=== PATIENT | female | born 1970 | race Caucasian/White ===

== ENCOUNTER 2016-07-04 15:53 | Inpatient (IN) | payer BC, OTHER ==
[2016-07-04 16:13] VITALS: BMI 61.6
[2016-07-04] MEDS ORDERED: ALBUTEROL SO4 0.083% IH SOL 2.5 MG/3 ML VIAL.NEB. NEB ONE (16:21)
[2016-07-04] MEDS ORDERED: ALBUTEROL SO4 2.5/IPRATROPIUM 0.5 INH SOL 3 ML VIAL.NEB. NEB ONE ×4 (16:21→21:38)
[2016-07-04] MEDS ORDERED: methylPREDNISolone NA SUCC 125 MG/2 ML VIAL ONE (16:35)
[2016-07-04] MEDS ORDERED: methylPREDNISolone NA SUCC 125 MG/2 ML VIAL IVPB ONE (16:35)
[2016-07-04] MEDS: ALBUTEROL SO4 2.5/IPRATROPIUM 0.5 INH SOL 3 ML VIAL.NEB. NEB SCH ×3 (16:39→17:36)
[2016-07-04] MEDS ORDERED: IPRATROPIUM BR 0.02% 0.5 MG/2.5 ML VIAL.NEB. NEB ONE (16:46)
[2016-07-04 17:15] LABS: BASOPHIL 1.1 % (0-2.0); EOSINOPHIL 0.6 % (0-4.5); MCH 23.7 pg (25.7-33.7); MCHC 31.6 g/dl (32.0-36.0); MEAN CELL VOLUME 74.9 fl (80-96); NEUTROPHILS 64.6 % (42.8-82.8); PLATELET COUNT 334 K/MM3 (134-434); RDW 16.7 % (11.6-15.6)
[2016-07-04 17:34] LABS: ALBUMIN 3.3 g/dl (3.4-5.0); ANION GAP 9 (8-16); CALCIUM 9.3 mg/dL (8.5-10.1); CO2 26 mmol/L (21-32); GLUCOSE,RANDOM 90 mg/dL (74-106)
[2016-07-04 17:37] LABS: ALK PHOS 77 U/L (45-117); BILIRUBIN,TOTAL 0.2 mg/dL (0.2-1.0); CREATININE 0.7 mg/dL (0.55-1.02); SGPT/ALT 18 U/L (12-78); TOT PROT 6.8 g/dl (6.4-8.2)
--- NOTE | 2016-07-04 17:45 | PDOC ---
History of Present Illness - General Chief Complaint: Asthma Stated Complaint: Shortness of Breath Time Seen by Provider: 07/04/16 16:24 History Source: Patient Exam Limitations: No Limitations - History of Present Illness Initial Comments: 07/04/16 16:46 46-year-old female with history of HIV, asthma, anemia, and obesity presents with increasing wheezing and coughing for the past 2 days. Patient was seen by her elevator constructor hydraulic today for checkup for her anemia when she was found to be short of breath and wheezing. Patient arrives here with expiratory wheeze and complaining of an inability to catch her breath. Patient has been him in the past for the above but denies intubations Timing/Duration: reports: other (3 days) Severity: reports: moderate Possible Cause: Yes: frequent episodes Modifying Factors: improves with: activity, albuterol nebulizer, coughing, lying down Past History - Past Medical History Allergies/Adverse Reactions: Allergies Allergy/AdvReac Type Severity Reaction Status Date / Time omeprazole [From Prilosec] Allergy Mild Hives Verified 02/15/16 16:22 omeprazole magnesium Allergy Mild Hives Verified 02/15/16 16:22 [From Prilosec] Home Medications: Ambulatory Orders Elviteg/Crystal/Emtric/Tenofo Ala [Genvoya Tablet] 1 each PO DAILY 02/15/16 Azithromycin [Zithromax 250mg Tablets -] 250 mg PO UTDICT #6 tab 04/13/16 Levofloxacin [Levaquin] 750 mg PO DAILY #5 tab 04/13/16 Prednisone [Deltasone -] 40 mg PO DAILY #6 tablet 04/13/16 Anemia: Yes Asthma: Yes HIV: Yes (AIDS) - Surgical History Abdominal Surgery: Yes - Family Disease History Family Disease History: Diabetes: Father, Heart Disease: Father - Reproductive History (#): 6 Para: 5 Cervical CA: No Dysfunctional Uterine Bleeding: Yes Ectopic : No Endometrial CA: No Polycystic Ovaries: No Therapeutic (s) & number: No Tubal Ligation: No Spontaneous : 1 - Immunization History Immunization Up to Date: Yes - Psycho/Social/Smoking Cessation Hx Anxiety: No Suicidal Ideation: No Smoking History: Never smoked Have you smoked in the past 12 months: No Hx Alcohol Use: No Drug/Substance Use Hx: No Substance Use Type: None Hx Substance Use Treatment: No Patient Lives Alone: No Lives with/in: spouse/SO Respiratory Specific PMHX - Complaint Specific PMHX Bronchitis: Yes Review of Systems - Review of Systems Able to Perform ROS?: Yes Constitutional: No: Symptoms Reported HEENTM: No: Symptoms Reported Respiratory: Yes: Cough, Shortness of Breath, Wheezing Cardiac (ROS): No: Symptoms Reported ABD/GI: No: Symptoms Reported : No: Symptoms Reported Musculoskeletal: No: Symptoms Reported Integumentary: No: Symptoms Reported Neurological: No: Symptoms reported Endocrine: No: Symptoms Reported Hematologic/Lymphatic: Yes: Anemia *Physical Exam - Vital Signs Last Vital Signs Temp Pulse Resp BP Pulse Ox 98.2 F 82 28 H 134/84 98 07/04/16 16:05 07/04/16 16:05 07/04/16 16:05 07/04/16 16:05 07/04/16 16:05 - Physical Exam General Appearance: Yes: Nourished, Appropriately Dressed, Mild Distress HEENT: positive: EOMI, NICOLE, TMs Normal, Pharynx Normal. negative: Pale Conjunctivae Respiratory/Chest: positive: Respiratory Distress (mild), Accessory Muscle Use ( intercostal), Rapid RR, Decreased Breath Sounds ( bases bilateral), Wheezing ( expiratory bilateral) Cardiovascular: positive: Regular Rhythm, Regular Rate. negative: Murmur Extremity: positive: Normal Capillary Refill Integumentary: positive: Normal Color, Warm, Moist Neurologic: positive: Motor Strength 5/5 (ambulatory) ED Treatment Course - LABORATORY CBC & Chemistry Diagram: 07/04/16 16:15 07/04/16 16:15 - RADIOLOGY Radiology Studies Ordered: Category Date Time Status CHEST X-RAY PORTABLE* [RAD] Stat Radiology 07/04/16 17:31 Ordered - Medications Given in the ED: ED Medications Discontinued Medications Generic Name Dose Route Start Last Admin Trade Name Freq PRN Reason Stop Dose Admin Albuterol/Ipratropium 1 amp 07/04/16 16:45 07/04/16 16:40 Duoneb - NEB 07/04/16 17:16 1 amp Q15M KAREN Administration Methylprednisolone Sodium Succinate 125 mg 07/04/16 16:35 07/04/16 16:39 Solu-Medrol - IVPB 07/04/16 16:36 125 mg ONCE ONE Administration Medical Decision Making - Critical Care Time Total Critical Care Time (minutes): 45 Critical Care Statement: The care of this patient involved high complexity decision making to prevent further life threatening deterioration of the patient 's condition and/or to evalute & treat vital organ system(s) failure or risk of failure. - Medical Decision Making 07/04/16 17:48 Patient here for complaints of wheezing and coughing despite using her home nebulizer. Patient denies fever, chills chest pain, or nausea. Patient with history of asthma anemia and HIV patient has been seen in the past for similar complaints. Patient was found to be tachypneic, with decreased breath sounds, and with intercostal muscle usage. Patient had noticed 100% while receiving a nebulizer treatment. Patient ordered for [id number] nebulizer treatments 4, Solu-Medrol, IV access, pulse oximetry, chest x-ray, type and screen, and labs. 07/04/16 18:30 Laboratory Tests 07/04/16 07/04/16 07/04/16 16:15 16:15 16:15 WBC 10.0 Hgb 11.9 Hct 37.7 RDW 16.7 H D Plt Count 334 Sodium 140 Potassium 4.6 Chloride 105 Carbon Dioxide 26 Anion Gap 9 Random Glucose 90 Calcium 9.3 AST 17 D ALT 18 Albumin 3.3 L Serum , Qual Blood Type A POSITIVE 07/04/16 16:26 WBC Hgb Hct RDW Plt Count Sodium Potassium Chloride Carbon Dioxide Anion Gap Random Glucose Calcium AST ALT Albumin Serum , Qual Negative Blood Type Chest x-ray shows no acute lung disease. Awaiting callback from Dr. Jiménez for admission since patient is still wheezing with decreased breath sounds at the bases and concerning for respiratory distress. 07/04/16 19:53 Pt will receive an addit duoneb and magnesium. I spoke to dr jiménez who asked if hospitalist can admit pt. Case discussed with Dr. Godfrey who accepted pt to med surg in pt *DC/Admit/Observation/Transfer Diagnosis at time of Disposition: Asthma exacerbation Qualifiers: Asthma severity: moderate persistent Qualified Code(s): J45.41 - Moderate persistent asthma with (acute) exacerbation - Discharge Dispostion Admit: Yes
[2016-07-04 17:56] LABS: SGOT/AST 17 U/L (15-37)
--- NOTE | 2016-07-04 18:52 | PDOC ---
*Physical Exam - Vital Signs Last Vital Signs Temp Pulse Resp BP Pulse Ox 98.2 F 82 28 H 134/84 98 07/04/16 16:05 07/04/16 16:05 07/04/16 16:05 07/04/16 16:05 07/04/16 16:05 ED Treatment Course - LABORATORY CBC & Chemistry Diagram: 07/05/16 06:00 07/05/16 06:00 - ADDITIONAL ORDERS Additional order review: Laboratory Results 07/04/16 07/04/16 07/04/16 16:26 16:15 16:15 Sodium 140 Potassium 4.6 Chloride 105 Carbon Dioxide 26 Anion Gap 9 BUN 10 Creatinine 0.7 Creat Clearance w eGFR > 60 Random Glucose 90 Calcium 9.3 Total Bilirubin 0.2 D AST 17 D ALT 18 Alkaline Phosphatase 77 Total Protein 6.8 Albumin 3.3 L Serum , Qual Negative Blood Type A POSITIVE Antibody Screen Negative 07/04/16 16:15 RBC 5.03 MCV 74.9 L MCHC 31.6 L RDW 16.7 H D MPV 8.0 Neutrophils % 64.6 Lymphocytes % 27.6 Monocytes % 6.1 Eosinophils % 0.6 Basophils % 1.1 D - Medications Given in the ED: ED Medications Discontinued Medications Generic Name Dose Route Start Last Admin Trade Name Freq PRN Reason Stop Dose Admin Albuterol/Ipratropium 1 amp 07/04/16 16:45 07/04/16 17:36 Duoneb - NEB 07/04/16 17:16 1 amp Q15M KAREN Administration Methylprednisolone Sodium Succinate 125 mg 07/04/16 16:35 07/04/16 16:39 Solu-Medrol - IVPB 07/04/16 16:36 125 mg ONCE ONE Administration Medical Decision Making - Medical Decision Making 07/04/16 18:51 Pt seen by Midlevel Provider under my direct supervision Ancillary studies reviewed I agree with plan as outlined by Midlevel Provider *DC/Admit/Observation/Transfer Diagnosis at time of Disposition: Asthma exacerbation
[2016-07-04] MEDS ORDERED: MAGNESIUM SULF 50% (8.12 MEQ/2 ML-1 GM VIAL) IVPB ONE (19:52)
--- NOTE | 2016-07-04 20:01 | HP ---
CHIEF COMPLAINT: SOB, Wheezing PCP: Dr. Jiménez HISTORY OF PRESENT ILLNESS: This is a 46 y/o female with a past medical history of HIV (HAART compliant), Anemia, Asthma, Severe Morbid Obesity. Who presents to the ED with SOB and wheezing x 2 days. 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 Patient reports CARREON. She reports not being able to walk a block without being SOB. Patient reports taking her meds and using her nebulizer without relief. Patient denies recent travel or sick contacts. Patient denies fever, CP, AP, N/V/D, constipation. ER course was notable for: (1) Solumederol, Duonebs given in ED (2) Chest Xray- no active lung disease (3) Recent Travel: None PAST MEDICAL HISTORY: See HPI PAST SURGICAL HISTORY: Social History: Smoking: Never Alcohol: Occasional Wine Drugs: Denies Lives with S.O. Family History: Father: Cancer, unknown, Mother: DM, COPD, Asthma, FM, Diverticulitis Allergies omeprazole [From Prilosec] Allergy (Mild, Verified 02/15/16 16:22) Hives omeprazole magnesium [From Prilosec] Allergy (Mild, Verified 02/15/16 16:22) Hives HOME MEDICATIONS: Home Medications Medication Instructions Recorded Elviteg/Crystal/Emtric/Tenofo Ala 1 each PO DAILY 02/15/16 [Genvoya Tablet] Azithromycin [Zithromax 250mg 250 mg PO UTDICT #6 tab 04/13/16 Tablets -] Levofloxacin [Levaquin] 750 mg PO DAILY #5 tab 04/13/16 Prednisone [Deltasone -] 40 mg PO DAILY #6 tablet 04/13/16 REVIEW OF SYSTEMS CONSTITUTIONAL: chills Absent: fever, diaphoresis, generalized weakness, malaise, loss of appetite, weight change HEENT: Absent: rhinorrhea, nasal congestion, throat pain, throat swelling, difficulty swallowing, mouth swelling, ear pain, eye pain, visual changes CARDIOVASCULAR: Absent: chest pain, syncope, palpitations, irregular heart rate, lightheadedness , peripheral edema RESPIRATORY: cough, shortness of breath, dyspnea with exertion, wheezing Absent: cough, shortness of breath, dyspnea with exertion, orthopnea, stridor, hemoptysis GASTROINTESTINAL: Absent: abdominal pain, abdominal distension, nausea, vomiting, diarrhea, constipation, melena, hematochezia GENITOURINARY: Absent: dysuria, frequency, urgency, hesitancy, hematuria, flank pain, genital pain MUSCULOSKELETAL: Absent: myalgia, arthralgia, joint swelling, back pain, neck pain SKIN: Absent: rash, itching, pallor HEMATOLOGIC/IMMUNOLOGIC: Absent: easy bleeding, easy bruising, lymphadenopathy, frequent infections ENDOCRINE: Absent: unexplained weight gain, unexplained weight loss, heat intolerance, cold intolerance NEUROLOGIC: headache Absent: focal weakness or paresthesias, dizziness, unsteady gait, seizure, mental status changes, bladder or bowel incontinence PSYCHIATRIC: Absent: anxiety, depression, suicidal or homicidal ideation, hallucinations. PHYSICAL EXAMINATION Vital Signs - 24 hr 07/04/16 07/04/16 16:05 19:30 Temperature 98.2 F Pulse Rate 82 Pulse Rate [ 94 H Apical] Respiratory 28 H 28 H Rate Blood Pressure 134/84 Blood Pressure 137/91 [Left Arm] O2 Sat by Pulse 98 97 Oximetry (%) GENERAL: Morbidly Obese, Awake, alert, and fully oriented, in mild resp distress. HEAD: Normal with no signs of trauma. EYES: Pupils equal, round and reactive to light, extraocular movements intact, sclera anicteric, conjunctiva clear. No lid lag. EARS, NOSE, THROAT: Ears normal, nares patent, oropharynx clear without exudates. Moist mucous membranes. NECK: Normal range of motion, supple without lymphadenopathy, JVD, or masses. LUNGS: Some air movement across upper lobes, diminished to bases, Scattered rhonchi, with expiratory wheeze noted. No accessory muscle use. HEART: Regular rate and rhythm, normal S1 and S2 without murmur, rub or gallop. ABDOMEN: Soft, obese, nontender, not distended, normoactive bowel sounds, no guarding, no rebound, no masses. No hepatomegaly or splenomegaly. MUSCULOSKELETAL: Normal range of motion at all joints. No bony deformities or tenderness. No CVA tenderness. UPPER EXTREMITIES: 2+ pulses, warm, well-perfused. No cyanosis. No clubbing. Cap refill <2 seconds. No peripheral edema. LOWER EXTREMITIES: 2+ pulses, warm, well-perfused. No calf tenderness. trace peripheral edema bilaterally. NEUROLOGICAL: Cranial nerves II-XII intact. Normal speech. Gait not observed. PSYCHIATRIC: Cooperative. Good eye contact. Appropriate mood and affect. SKIN: Warm, dry, normal turgor, no rashes or lesions noted. Laboratory Results - last 24 hr 07/04/16 07/04/16 07/04/16 16:15 16:15 16:15 WBC 10.0 RBC 5.03 Hgb 11.9 Hct 37.7 MCV 74.9 L MCHC 31.6 L RDW 16.7 H D Plt Count 334 MPV 8.0 Neutrophils % 64.6 Lymphocytes % 27.6 Monocytes % 6.1 Eosinophils % 0.6 Basophils % 1.1 D Sodium 140 Potassium 4.6 Chloride 105 Carbon Dioxide 26 Anion Gap 9 BUN 10 Creatinine 0.7 Creat Clearance w eGFR > 60 Random Glucose 90 Calcium 9.3 Total Bilirubin 0.2 D AST 17 D ALT 18 Alkaline Phosphatase 77 Total Protein 6.8 Albumin 3.3 L Serum , Qual Blood Type A POSITIVE Antibody Screen Negative 07/04/16 16:26 WBC RBC Hgb Hct MCV MCHC RDW Plt Count MPV Neutrophils % Lymphocytes % Monocytes % Eosinophils % Basophils % Sodium Potassium Chloride Carbon Dioxide Anion Gap BUN Creatinine Creat Clearance w eGFR Random Glucose Calcium Total Bilirubin AST ALT Alkaline Phosphatase Total Protein Albumin Serum , Qual Negative Blood Type Antibody Screen ASSESSMENT/PLAN: This is a 46 y/o female with a PMHx of HIV (HAART compliant), Asthma, Anemia. Present to the ED with SOB, wheezing. Placed on Observation for Acute Asthma Exacerbation for further evaluation of their emergent condition. Problem List - Problem (1) Asthma exacerbation Assessment/Plan: - Acute - No leukocytosis, afebrile, likely due to environmental allergens vs viral - Solumederol, Magnesium Sulfate, Duonebs given in ED - Continue DuoNebs - Solumederol - O2 - Peak Flow BID - Monitor vitals, CBC - Consider LABA, if no improvement - f/u with Pulm outpatient as needed Code(s): J45.901 - UNSPECIFIED ASTHMA WITH (ACUTE) EXACERBATION Qualifiers: Asthma severity: moderate persistent Qualified Code(s): J45.41 - Moderate persistent asthma with (acute) exacerbation (2) Anemia Assessment/Plan: - Controlled - At baseline - Will transfuse if Hgb < 7.0 - Monitor CBC Code(s): D64.9 - ANEMIA, UNSPECIFIED (3) Chiari I malformation Assessment/Plan: - Continue to monitor and treat with interventions accordingly - Tylenol, Motrin prn (4) HIV (human immunodeficiency virus infection) Assessment/Plan: - Patient may take home med it is not in formulary Code(s): Z21 - ASYMPTOMATIC HUMAN IMMUNODEFICIENCY VIRUS INFECTION STATUS (5) Neuropathy Assessment/Plan: - Elevate extremities prn - B6 or anticonvulsant prn Code(s): G62.9 - POLYNEUROPATHY, UNSPECIFIED (6) Obesity Assessment/Plan: - Calorie Controlled Diet - f/u with RD in outpatient Code(s): E66.9 - OBESITY, UNSPECIFIED (7) DVT prophylaxis Assessment/Plan: - OOB - SCDs - Heparin SQ Code(s): [id number] - Visit type - Emergency Visit Emergency Visit: Yes ED Registration Date: 07/04/16 Care time: The patient presented to the Emergency Department on the above date and was hospitalized for further evaluation of their emergent condition. - New Patient This patient is new to me today: Yes Date on this admission: 07/04/16 - Critical Care Critical Care patient: No
[2016-07-04] MEDS ORDERED: MAGNESIUM SULF 50% (8.12 MEQ/2 ML-1 GM VIAL) ONE (21:38)
[2016-07-05] MEDS ORDERED: ACETAMINOPHEN 325 MG TABLET (FP) PO ONE (02:02)
[2016-07-05] MEDS: IPRATROPIUM BR 0.02% 0.5 MG/2.5 ML VIAL.NEB. NEB SCH ×4 (02:30→18:41)
[2016-07-05] MEDS: methylPREDNISolone NA SUCC 40 MG/1 ML VIAL IVPB SCH ×4 (02:30→22:36)
[2016-07-05 07:49] LABS: BASOPHIL 0.7 % (0-2.0); MCH 23.2 pg (25.7-33.7); MCHC 30.9 g/dl (32.0-36.0); MEAN PLT VOLUME 7.6 fl (7.5-11.1); NEUTROPHILS 85.8 % (42.8-82.8); PLATELET COUNT 356 K/MM3 (134-434); RDW 16.9 % (11.6-15.6)
[2016-07-05] MEDS ORDERED: ACETAMINOPHEN/CAFFEINE/BUTALBITAL 1 TAB PO ONE (08:30)
[2016-07-05 08:55] LABS: CREATININE 0.8 mg/dL (0.55-1.02)
[2016-07-05] MEDS ORDERED: ALBUTEROL SO4 0.083% IH SOL 2.5 MG/3 ML VIAL.NEB. NEB PRN (15:21)
--- NOTE | 2016-07-05 15:22 | PN ---
Progress Note (short form) - Note Progress Note: PULMONARY CONSULTATION DICTATED 07/05/16 IMP MODERATE PERSISTENT ASTHMA WITH ACUTE EXACERBATION OSAS MORBID OBESITY ANEMIA PLAN IV STEROIDS INHALED BRONCHODILATORS SUPPLEMENTAL O2 MONITOR PEAK FLOW BIPAP AT NIGHT DVT PROPHYLAXIS DR GREENWOOD Problem List - Problems (1) Asthma exacerbation Code(s): J45.901 - UNSPECIFIED ASTHMA WITH (ACUTE) EXACERBATION Qualifiers: Asthma severity: moderate persistent Qualified Code(s): J45.41 - Moderate persistent asthma with (acute) exacerbation (2) Anemia Code(s): D64.9 - ANEMIA, UNSPECIFIED (3) HIV (human immunodeficiency virus infection) Code(s): Z21 - ASYMPTOMATIC HUMAN IMMUNODEFICIENCY VIRUS INFECTION STATUS (4) Obesity Code(s): E66.9 - OBESITY, UNSPECIFIED (5) Sleep apnea, obstructive Code(s): G47.33 - OBSTRUCTIVE SLEEP APNEA (ADULT) (PEDIATRIC)
--- NOTE | 2016-07-05 15:54 | PN ---
Physical Exam: SUBJECTIVE: Patient seen and examined, she is oob to chair. She gets out of breath while answering questions, she denies CP and says the oxygen helps. She reports being admitted before for 3 weeks, never intubated Events: Migraine this AM, pain referred to occipital region down behind ear- > improved with fiorcet OBJECTIVE: Vital Signs Period Temp Pulse Resp BP Sys/So Pulse Ox Last 24 Hr 97.5 F-97.8 F 90-111 18-22 143-150/71-85 96-98 PE Neuro: alert, awake, cn 2-12intact Pulm: expiratory wheezing, dyspnea, + NC, lungs diminished CV: s1 s2 rrr no mrg Abd: obese, s nt nd + bs Ext: lower ext tenderness to palpation, no le edema Laboratory Results - last 24 hr 07/05/16 07/05/16 06:00 06:00 WBC 14.0 H D RBC 5.28 H Hgb 12.3 Hct 39.6 MCV 75.0 L MCHC 30.9 L RDW 16.9 H Plt Count 356 MPV 7.6 Neutrophils % 85.8 H D Lymphocytes % 12.8 D Monocytes % 0.7 L D Eosinophils % 0.0 D Basophils % 0.7 Sodium 135 L Potassium 4.9 Chloride 101 Carbon Dioxide 23 Anion Gap 11 BUN 11 Creatinine 0.8 Random Glucose 191 H D Calcium 10.0 Active Medications Generic Name Dose Route Start Last Admin Trade Name Freq PRN Reason Stop Dose Admin Acetaminophen/Butalbital/Caffeine 1 tablet 07/05/16 15:21 Fioricet - PO Q6H PRN FEVER OR PAIN Albuterol Sulfate 1 amp 07/05/16 15:24 Ventolin 0.5% - NEB Q4H PRN SHORT OF BREATH/WHEEZING Azithromycin 500 mg 07/05/16 16:00 Zithromax - PO 07/08/16 15:59 DAILY KAREN Budesonide/Formoterol Fumarate 2 puff 07/05/16 22:00 Symbicort 160/4.5mcg - IH BID KAREN Insulin Aspart 1 vial 07/05/16 16:30 Novolog Vial Sliding Scale - SQ ACHS KAREN Protocol Ipratropium [place] 1 amp 07/05/16 00:00 07/05/16 11:25 Atrovent 0.02% Nebulizer - NEB 1 amp Q6HPO KAREN Administration Methylprednisolone Sodium Succinate 60 mg 07/05/16 21:00 Solu-Medrol - IVPB Q6H-IV KAREN Non-Formulary Medication 1 each 07/05/16 10:00 Elviteg/Crystal/Emtric/Tenofo Ala [Genvoya Tablet] PO DAILY KAREN Tiotropium [place] 1 puff 07/05/16 16:30 Spiriva - IH DAILY KAREN Assessment: 46 year female HIV (HAART compliant), Anemia, Asthma, Severe Morbid Obesity admitted acute asthma exacerbation Plan: 1. Acute asthma exacerbation - Continue solumedrol 60mg q6 - Start Symbicort BID - Start Spirivia daily - Albuterol nebs prn - ISS, BGM ACHS w/ medrol - Continuos supplemental o2 - Bedside peak flows - Bipap at night - Pulm seeing 2. HIV - Cont HAART meds Visit type - Emergency Visit Emergency Visit: Yes ED Registration Date: 07/04/16 Care time: The patient presented to the Emergency Department on the above date and was hospitalized for further evaluation of their emergent condition. - New Patient This patient is new to me today: Yes Date on this admission: 07/05/16 - Critical Care Critical Care patient: No
[2016-07-05] MEDS ORDERED: AZITHROMYCIN 250 MG TABLET (FP) PO SCH (16:00)
[2016-07-05] MEDS: TIOTROPIUM BROMIDE 18 MCG/INH (DEVICE W/ 30 CAPSULES) IH SCH (16:30)
[2016-07-05] MEDS: INSULIN SLIDING SCALE (NOVOLOG) 1 VIAL SQ SCH ×2 (17:06→22:36)
[2016-07-05] MEDS: ACETAMINOPHEN/CAFFEINE/BUTALBITAL 1 TAB PO PRN ×2 (17:13→23:35)
[2016-07-05] MEDS ORDERED: methylPREDNISolone NA SUCC 40 MG/1 ML VIAL IVPB SCH (18:00)
[2016-07-05] MEDS ORDERED: PT OWN MED DRAWER 7, Y5N ONE (22:09)
[2016-07-05] MEDS: BUDESONIDE/FORMETEROL FUMARATE 160/4.5 mcg INHALER IH SCH (22:51)
[2016-07-06] MEDS: IPRATROPIUM BR 0.02% 0.5 MG/2.5 ML VIAL.NEB. NEB SCH ×2 (00:05→06:27)
[2016-07-06] MEDS: methylPREDNISolone NA SUCC 40 MG/1 ML VIAL IVPB SCH ×4 (02:44→21:45)
[2016-07-06] MEDS: INSULIN SLIDING SCALE (NOVOLOG) 1 VIAL SQ SCH ×4 (06:51→21:44)
[2016-07-06] MEDS: ACETAMINOPHEN/CAFFEINE/BUTALBITAL 1 TAB PO PRN ×2 (06:57→20:06)
[2016-07-06 07:30] LABS: BASOPHIL 0.2 % (0-2.0); MCHC 30.8 g/dl (32.0-36.0); MEAN CELL VOLUME 74.6 fl (80-96); MEAN PLT VOLUME 7.7 fl (7.5-11.1); PLATELET COUNT 358 K/MM3 (134-434); RDW 16.7 % (11.6-15.6); WHITE BLOOD COUNT 17.3 K/mm3 (4.0-10.0)
[2016-07-06 08:07] LABS: CALCIUM 9.2 mg/dL (8.5-10.1); CREATININE 0.8 mg/dL (0.55-1.02); MAGNESIUM 2.4 mg/dL (1.8-2.4)
[2016-07-06] MEDS ORDERED: AZITHROMYCIN IVPB 500 MG in DEXTROSE 5%-WATER - 250 ML IVPB ONE (08:44)
[2016-07-06] MEDS: ENOXAPARIN NA (PORCINE) 40 MG/0.4 ML DISP.SYRIN SQ SCH (09:15)
[2016-07-06] MEDS: [UNRECOGNIZED DRUG - OTHER] PO SCH (09:16)
--- NOTE | 2016-07-06 10:09 | PN ---
Progress Note (short form) - Note Progress Note: OOB to chair on O2. Still with SOB/CARREON. Dry cough. Intake & Output 07/03/16 07/04/16 07/05/16 07/06/16 23:59 23:59 23:59 23:59 Intake Total 1000 1900 Balance 1000 1900 Weight 337 lb Last Vital Signs Temp Pulse Resp BP Pulse Ox 97.5 F L 79 20 133/79 98 07/06/16 06:15 07/06/16 06:15 07/06/16 06:15 07/06/16 06:15 07/06/16 06:00 Active Medications Acetaminophen/Butalbital/Caffeine (Fioricet -) 1 tablet PO Q6H PRN PRN Reason: FEVER OR PAIN Last Admin: 07/06/16 06:57 Dose: 1 tablet Albuterol Sulfate (Ventolin 0.5% -) 1 amp NEB Q4H PRN PRN Reason: SHORT OF BREATH/WHEEZING Budesonide/Formoterol Fumarate (Symbicort 160/4.5mcg -) 2 puff IH BID [facility] Last Admin: 07/05/16 22:51 Dose: 2 puff Enoxaparin Sodium (Lovenox -) 40 mg SQ DAILY [facility] Last Admin: 07/06/16 09:15 Dose: 40 mg Insulin Aspart (Novolog Vial Sliding Scale -) 1 vial SQ ACHS KAREN PRN Reason: Protocol Last Admin: 07/06/16 06:51 Dose: 6 units Ipratropium [place]arrison (Atrovent 0.02% Nebulizer -) 1 amp NEB Q6HPO [facility] Last Admin: 07/06/16 06:27 Dose: 1 amp Methylprednisolone Sodium Succinate (Solu-Medrol -) 60 mg IVPB Q6H-IV KAREN Last Admin: 07/06/16 09:15 Dose: 60 mg Elviteg/Crystal/Emtric/Tenofo Ala [Genvoya Tablet] 1 each PO DAILY [facility] Last Admin: 07/06/16 09:16 Dose: 1 each Tiotropium [place]arrison (Spiriva -) 1 puff IH DAILY [facility] Last Admin: 07/05/16 16:30 Dose: 1 puff GENERAL: Morbidly Obese, Awake, alert, and fully oriented, mildly tachypneic at rest HEAD: Normal with no signs of trauma. EYES: sclera anicteric, conjunctiva clear. No lid lag. EARS, NOSE, THROAT: oropharynx clear without exudates. Moist mucous membranes. NECK: Normal range of motion, supple without lymphadenopathy, JVD, or masses. LUNGS: Scattered rhonchi, with expiratory wheeze noted. No accessory muscle use. HEART: Regular rate and rhythm, normal S1 and S2 without murmur, rub or gallop. ABDOMEN: Soft, obese, nontender, not distended, (+) BS, no guarding, no rebound , no masses. No hepatomegaly or splenomegaly. MUSCULOSKELETAL: Normal range of motion at all joints. No bony deformities or tenderness. No CVA tenderness. UPPER EXTREMITIES: 2+ pulses, warm, well-perfused. No cyanosis. No clubbing. Cap refill <2 seconds. No peripheral edema. LOWER EXTREMITIES: 2+ pulses, warm, well-perfused. No calf tenderness. trace peripheral edema bilaterally. NEUROLOGICAL: Non-focal PSYCHIATRIC: Cooperative. Good eye contact. Appropriate mood and affect. SKIN: Warm, dry, normal turgor, no rashes or lesions noted. Laboratory Results - last 24 hr 07/06/16 07/06/16 06:00 06:00 WBC 17.3 H RBC 5.09 Hgb 11.7 Hct 37.9 MCV 74.6 L MCHC 30.8 L RDW 16.7 H Plt Count 358 MPV 7.7 Neutrophils % 85.0 H Lymphocytes % 11.7 Monocytes % 3.1 L D Eosinophils % 0.0 Basophils % 0.2 Sodium 137 Potassium 4.7 Chloride 103 Carbon Dioxide 24 Anion Gap 10 BUN 15 D Creatinine 0.8 Random Glucose 247 H D Calcium 9.2 Magnesium 2.4 D Problem List - Problems (1) Asthma exacerbation Code(s): J45.901 - UNSPECIFIED ASTHMA WITH (ACUTE) EXACERBATION Qualifiers: Asthma severity: moderate persistent Qualified Code(s): J45.41 - Moderate persistent asthma with (acute) exacerbation (2) Anemia Code(s): D64.9 - ANEMIA, UNSPECIFIED (3) HIV (human immunodeficiency virus infection) Code(s): Z21 - ASYMPTOMATIC HUMAN IMMUNODEFICIENCY VIRUS INFECTION STATUS (4) Obesity Code(s): E66.9 - OBESITY, UNSPECIFIED (5) Sleep apnea, obstructive Code(s): G47.33 - OBSTRUCTIVE SLEEP APNEA (ADULT) (PEDIATRIC) PLAN: Continue Medrol at current dose Symbicort BID Spirivia daily Albuterol nebs prn Follow BGM Bedside peak flow monitoring PAP QHS and PRN O2 as needed Add Kristyn Dai
--- NOTE | 2016-07-06 10:50 | EKG ---
Test Reason : Blood Pressure : / mmHG Vent. Rate : 114 BPM Atrial Rate : 114 BPM P-R Int : 140 ms QRS Dur : 104 ms QT Int : 358 ms P-R-T Axes : 066 053 -07 degrees QTc Int : 493 ms SINUS TACHYCARDIA Confirmed by ENRICO WILLSON MD ([id number]) on 07/06/2016 10:49:59 AM Referred By: Confirmed By:ENRICO WILLSON MD
[2016-07-06] MEDS: ALBUTEROL SO4 0.083% IH SOL 2.5 MG/3 ML VIAL.NEB. NEB SCH ×3 (11:15→23:09)
[2016-07-06] MEDS: TIOTROPIUM BROMIDE 18 MCG/INH (DEVICE W/ 30 CAPSULES) IH SCH (14:54)
[2016-07-06] MEDS: BUDESONIDE/FORMETEROL FUMARATE 160/4.5 mcg INHALER IH SCH ×2 (14:54→21:43)
--- NOTE | 2016-07-06 14:58 | PN ---
Physical Exam: SUBJECTIVE: Patient seen and examined. Very dyspneic after attempting to ambulate to bathroom. Still coughing. No subjective fevers/chills. OBJECTIVE: PF pre-tx 210, post-265. Vital Signs Period Temp Pulse Resp BP Sys/So Pulse Ox Last 24 Hr 97.9 F 92 20 148/79 GENERAL: The patient is awake, alert, and fully oriented, appears dyspneic. HEAD: Normal with no signs of trauma. EYES: PERRL, extraocular movements intact, sclera anicteric, conjunctiva clear. No ptosis. ENT: Ears normal, nares patent, oropharynx clear without exudates, moist mucous membranes. NECK: Trachea midline, full range of motion, supple. LUNGS: Diffuse expiratory wheezing with diminished air entry. Speaking in half sentences. No accessory muscle use. HEART: Regular rate and rhythm, S1, S2 without murmur, rub or gallop. ABDOMEN: Soft, nontender, nondistended, normoactive bowel sounds, no guarding, no rebound, no hepatosplenomegaly, no masses. EXTREMITIES: 2+ pulses, warm, well-perfused, no edema. NEUROLOGICAL: Cranial nerves II through XII grossly intact. Normal speech, gait not observed. PSYCH: Normal mood, normal affect. SKIN: Warm, dry, normal turgor, no rashes or lesions noted Active Medications Generic Name Dose Route Start Last Admin Trade Name Freq PRN Reason Stop Dose Admin Acetaminophen/Butalbital/Caffeine 1 tablet 07/05/16 15:21 07/06/16 06:57 Fioricet - PO 1 tablet Q6H PRN Administration FEVER OR PAIN Albuterol Sulfate 1 amp 07/05/16 15:24 Ventolin 0.5% - NEB Q4H PRN SHORT OF BREATH/WHEEZING Albuterol Sulfate 1 amp 07/06/16 12:00 07/06/16 11:15 Ventolin 0.083% Nebulizer Soln - NEB 1 amp QIDR KAREN Administration Budesonide/Formoterol Fumarate 2 puff 07/05/16 22:00 07/06/16 14:54 Symbicort 160/4.5mcg - IH 2 puff BID KAREN Administration Enoxaparin Sodium 40 mg 07/06/16 10:00 07/06/16 09:15 Lovenox - SQ 40 mg DAILY KAREN Administration Insulin Aspart 1 vial 07/05/16 16:30 07/06/16 12:14 Novolog Vial Sliding Scale - SQ 6 units ACHS KAREN Administration Protocol Methylprednisolone Sodium Succinate 60 mg 07/05/16 21:00 07/06/16 09:15 Solu-Medrol - IVPB 60 mg Q6H-IV KAREN Administration Montelukast Sodium 10 mg 07/06/16 22:00 Singulair - PO HS KAREN Elviteg/Crystal/Emtric/ 1 each 07/05/16 10:00 07/06/16 09:16 Tenofo Ala [Genvoya PO 1 each Tablet] DAILY KAREN Administration Tiotropium [place] 1 puff 07/05/16 16:30 07/06/16 14:54 Spiriva - IH 1 puff DAILY KAREN Administration ASSESSMENT/PLAN: 46 year female HIV (on HAART therapy), anemia, asthma, and morbid obesity placed in observation for acute asthma exacerbation. 1. Acute asthma exacerbation -Not yet improving, requiring supplemental O2 via nasal cannula -Continue Solu-Medrol at current dose (60mg q6h) -Continue Symbicort and Spiriva -Albuterol nebs q6h standing -Peak flows -Incentive spirometer, bipap at night -Pulmonology following 2. HIV -Cont HAART 3. Anemia -H/H within normal limits -Receives outpatient iron infusions 4. Hyperglycemia -Continue FSACHS, ISS while on Solu-Medrol 5. Ppx -Lovenox 40mg sq daily DISPO: Admit for inpatient services; will require continuous treatment with nebs and steroids pending improvement in respiratory status. Visit type - Emergency Visit Emergency Visit: Yes ED Registration Date: 07/06/16 Care time: The patient presented to the Emergency Department on the above date and was hospitalized for further evaluation of their emergent condition. - New Patient This patient is new to me today: Yes Date on this admission: 07/07/16 - Critical Care Critical Care patient: No
--- NOTE | 2016-07-06 15:18 | CONS ---
PULMONARY CONSULTATION DATE OF CONSULTATION: 07/05/2016 REFERRING PHYSICIAN: SOBIA Vivas HISTORY OF PRESENT ILLNESS: The patient is a 46-year-old female with past medical history of chronic persistent asthma, HIV/currently on retroviral therapy, anemia, obesity, obstructive sleep apnea/on CPAP. Admitted to [facility] complaining of increasing shortness of breath, cough and chest congestion for probably 2 days duration. Patient denies any fevers, chills, nausea, vomiting, diaphoresis. Apparently, for the past couple days, she has been complaining of increasing shortness of breath. She used inhaled bronchodilator without improvement, and she finally presented to the emergency room with the above. In the ER, she was to have an acute exacerbation. She was placed on inhaled bronchodilators and IV steroids with some improvement. Patient is a nonsmoker. There is no history of occupational exposure to chemicals. There is no history of DVT or PE in the past. There is no history of recent travel. There is no history of pneumonia. There is no history of fevers, chills or recent URI symptoms. PAST MEDICAL HISTORY: Past medical history again includes HIV, asthma, anemia, morbid obesity as well as obstructive sleep apnea/on CPAP. REVIEW OF SYSTEMS: Positive orthopnea, positive dyspnea, positive cough, positive chest congestion. No fever, no chills, no nausea, no vomiting, no hemoptysis, no abdominal pain. Positive for lower extremity edema. CURRENT MEDICATIONS: Current medications include Solu-Medrol, Atrovent and Alvtiiq. PHYSICAL EXAMINATION: General: On physical examination, the patient is an obese female, awake, alert, dyspneic. She is currently afebrile. Vital signs: Blood pressure is 149/77. Respiratory rate is 20. She is 315 pounds. O2 saturation 98% on room air. HEENT: Head is normocephalic, atraumatic. Neck is supple. Heart: Regular, S1, S2. Chest: Scattered bilateral wheezes. Abdomen: Soft. Bowel sounds positive. Extremities: Bilateral lower extremity edema. LABORATORIES: WBC is 14, hemoglobin 12.3, hematocrit 39.6. Her platelet count is 356,000. INR is 1.18. BUN is 11, creatinine 0.8. Chest x-ray shows no acute infiltrates or effusions. IMPRESSION: 1. Chronic persistent asthma with acute exacerbation. 2. History of HIV, on retroviral therapy. 3. Obstructive sleep apnea, on CPAP. 4. Anemia. 5. Morbid obesity. PLAN: 1. IV steroids. 2. Inhaled bronchodilators. 3. Supplemental O2, monitor peak flow. 4. CPAP at night. 5.. Pulmonary function test as outpatient. 6. Serum IgE levels as outpatient. KUMAR GREENWOOD M.D. BENOIT/[id number] MTDD
[2016-07-06] MEDS: MONTELUKAST NA 10 MG TABLET PO SCH (21:41)
[2016-07-07] MEDS: methylPREDNISolone NA SUCC 40 MG/1 ML VIAL IVPB SCH ×4 (03:46→21:21)
[2016-07-07] MEDS: ACETAMINOPHEN/CAFFEINE/BUTALBITAL 1 TAB PO PRN ×3 (04:31→19:12)
[2016-07-07] MEDS: INSULIN SLIDING SCALE (NOVOLOG) 1 VIAL SQ SCH ×4 (06:14→21:32)
[2016-07-07] MEDS: ALBUTEROL SO4 0.083% IH SOL 2.5 MG/3 ML VIAL.NEB. NEB SCH ×4 (06:28→23:48)
[2016-07-07] MEDS: [UNRECOGNIZED DRUG - OTHER] PO SCH (09:10)
[2016-07-07] MEDS: ENOXAPARIN NA (PORCINE) 40 MG/0.4 ML DISP.SYRIN SQ SCH (09:10)
[2016-07-07] MEDS: TIOTROPIUM BROMIDE 18 MCG/INH (DEVICE W/ 30 CAPSULES) IH SCH (09:10)
[2016-07-07] MEDS: BUDESONIDE/FORMETEROL FUMARATE 160/4.5 mcg INHALER IH SCH ×2 (09:10→21:25)
[2016-07-07] MEDS ORDERED: AZITHROMYCIN IVPB 250 MG in DEXTROSE 5%-WATER - 250 ML IVPB SCH (10:00)
[2016-07-07] MEDS ORDERED: INSULIN (NOVOLOG) ASPART 100 UNITS/ML 10ML VIAL ONE (11:56)
--- NOTE | 2016-07-07 14:16 | PN ---
Progress Note (short form) - Note Progress Note: PULMONARY AWAKE/ALERT VSS/AFEBRILE ANICTERIC DISTANT B/L EXP WHEEZE S1S2 BS+ OBESE LESS EDEMA B/L LABS/MEDS/NOTES/IMAGING REVIEWED (1) Asthma exacerbation Code(s): J45.901 - UNSPECIFIED ASTHMA WITH (ACUTE) EXACERBATION Qualifiers: Asthma severity: moderate persistent Qualified Code(s): J45.41 - Moderate persistent asthma with (acute) exacerbation (2) Anemia Code(s): D64.9 - ANEMIA, UNSPECIFIED (3) HIV (human immunodeficiency virus infection) Code(s): Z21 - ASYMPTOMATIC HUMAN IMMUNODEFICIENCY VIRUS INFECTION STATUS (4) Obesity Code(s): E66.9 - OBESITY, UNSPECIFIED (5) Sleep apnea, obstructive Code(s): G47.33 - OBSTRUCTIVE SLEEP APNEA (ADULT) (PEDIATRIC) PLAN: Continue Medrol at current dose Symbicort BID Spirivia daily Albuterol nebs prn Follow BGM Bedside peak flow monitoring PAP QHS and PRN O2 as needed Kristyn MASON MD
--- NOTE | 2016-07-07 18:04 | PN ---
[id number] 4Bd OBJECTIVE: Still requiring O2 via nasal cannula. PF 220 pre-tx, 270 post. Vital Signs Period Temp Pulse Resp BP Sys/So Pulse Ox Last 24 Hr 97.6 F-98.4 F 69-85 20-22 126-154/56-89 96-98 GENERAL: The patient is awake, alert, and fully oriented, in no acute distress. HEAD: Normal with no signs of trauma. EYES: PERRL, extraocular movements intact, sclera anicteric, conjunctiva clear. No ptosis. ENT: Ears normal, nares patent, oropharynx clear without exudates, moist mucous membranes. NECK: Trachea midline, full range of motion, supple. LUNGS: Distant expiratory wheezes, improved air movement. Mild tachypnea, speaking in full sentences. HEART: Regular rate and rhythm, S1, S2 without murmur, rub or gallop. ABDOMEN: Soft, obese, LLQ tenderness to deep palpation, normoactive bowel sounds , no guarding, no rebound, no hepatosplenomegaly, no masses. EXTREMITIES: 2+ pulses, warm, well-perfused. Trace LE edema bilaterally. NEUROLOGICAL: Cranial nerves II through XII grossly intact. Normal speech, gait not observed. PSYCH: Normal mood, normal affect. SKIN: Warm, dry, normal turgor, no rashes or lesions noted Laboratory Results - last 24 hr 07/06/16 07/06/16 07/07/16 17:13 21:39 06:11 POC Glucometer 269 275 227 07/07/16 12:03 POC Glucometer 255 Active Medications Generic Name Dose Route Start Last Admin Trade Name Freq PRN Reason Stop Dose Admin Acetaminophen/Butalbital/Caffeine 1 tablet 07/05/16 15:21 07/07/16 12:00 Fioricet - PO 1 tablet Q6H PRN Administration FEVER OR PAIN Albuterol Sulfate 1 amp 07/05/16 15:24 Ventolin 0.5% - NEB Q4H PRN SHORT OF BREATH/WHEEZING Albuterol Sulfate 1 amp 07/06/16 12:00 07/07/16 11:26 Ventolin 0.083% Nebulizer Soln - NEB 1 amp QIDR KAREN Administration Budesonide/Formoterol Fumarate 2 puff 07/05/16 22:00 07/07/16 09:10 Symbicort 160/4.5mcg - IH 2 puff BID KAREN Administration Enoxaparin Sodium 40 mg 07/06/16 10:00 07/07/16 09:10 Lovenox - SQ 40 mg DAILY KAREN Administration Insulin Aspart 1 vial 07/05/16 16:30 07/07/16 17:53 Novolog Vial Sliding Scale - SQ 6 units ACHS KAREN Administration Protocol Methylprednisolone Sodium Succinate 60 mg 07/05/16 21:00 07/07/16 15:05 Solu-Medrol - IVPB 60 mg Q6H-IV KAREN Administration Montelukast Sodium 10 mg 07/06/16 22:00 07/06/16 21:41 Singulair - PO 10 mg HS KAREN Administration Elviteg/Crystal/Emtric/ 1 each 07/05/16 10:00 07/07/16 09:10 Tenofo Ala [Genvoya PO 1 each Tablet] DAILY KAREN Administration Tiotropium [place] 1 puff 07/05/16 16:30 07/07/16 09:10 Spiriva - IH 1 puff DAILY KAREN Administration ASSESSMENT/PLAN: 46 year female HIV (on HAART therapy), anemia, asthma, and morbid obesity placed in admitted with asthma exacerbation. 1. Acute asthma exacerbation -Slight improvement in wheezing, but still dyspneic on minimal exertion and requiring supplemental O2 via nasal cannula -Continue Solu-Medrol at current dose (60mg q6h) -Continue Symbicort and Spiriva -Albuterol nebs q6h standing -Peak flows -Incentive spirometer, bipap at night -Pulmonology following 2. HIV -Cont HAART 3. Anemia -H/H within normal limits -Receives outpatient iron infusions 4. Hyperglycemia -Continue FSACHS, ISS while on Solu-Medrol 5. Abdominal pain -Chronic, worsening, no recent imaging -Known history of ovarian cyst -CTAP with PO/IV contrast tomorrow 6. Ppx -Lovenox 40mg sq daily DISPO: Requires continued inpatient care and treatment with nebs, supplemental oxygen, and steroids pending improvement in respiratory status. Visit type - Emergency Visit Emergency Visit: Yes ED Registration Date: 07/06/16 Care time: The patient presented to the Emergency Department on the above date and was hospitalized for further evaluation of their emergent condition. - New Patient This patient is new to me today: No - Critical Care Critical Care patient: No
[2016-07-07] MEDS: MONTELUKAST NA 10 MG TABLET PO SCH (21:24)
[2016-07-08] MEDS: methylPREDNISolone NA SUCC 40 MG/1 ML VIAL IVPB SCH ×4 (03:27→21:24)
[2016-07-08] MEDS: INSULIN SLIDING SCALE (NOVOLOG) 1 VIAL SQ SCH ×4 (06:38→21:29)
[2016-07-08] MEDS: ALBUTEROL SO4 0.083% IH SOL 2.5 MG/3 ML VIAL.NEB. NEB SCH ×4 (06:42→23:01)
[2016-07-08 07:45] LABS: MCH 23.6 pg (25.7-33.7); MEAN PLT VOLUME 7.8 fl (7.5-11.1); PLATELET COUNT 368 K/MM3 (134-434); RDW 17.1 % (11.6-15.6); WHITE BLOOD COUNT 14.9 K/mm3 (4.0-10.0)
[2016-07-08 09:22] LABS: ALBUMIN 3.5 g/dl (3.4-5.0); ANION GAP 12 (8-16); CALCIUM 9.3 mg/dL (8.5-10.1); CO2 25 mmol/L (21-32); GLUCOSE,RANDOM 256 mg/dL (74-106); SGOT/AST 8 U/L (15-37); SGPT/ALT 21 U/L (12-78)
[2016-07-08 09:24] LABS: ALK PHOS 59 U/L (45-117); BILIRUBIN,TOTAL 0.2 mg/dL (0.2-1.0); TOT PROT 6.9 g/dl (6.4-8.2)
--- NOTE | 2016-07-08 10:48 | PN ---
Physical Exam: SUBJECTIVE: Patient seen and examined at bedside. Pt. states that her breathing is still pretty bad, but slightly improved from yesterday. Pt. states that she walked to her in room bathroom with out her supplemental oxygen and became very short of breath. Pt. also reports productive cough with whitish mucous. Reports a headache 6/10 on the pain scale. States that she will ask for her fiorcet after her CT scan since she is NPO. OBJECTIVE: Vital Signs Period Temp Pulse Resp BP Sys/So Pulse Ox Last 24 Hr 97.7 F-98.1 F 67-86 20-20 126-154/56-88 96-98 GENERAL: Morbidly obese pt. Awake, alert, and fully oriented to person, place and time, in no acute distress. HEAD: Normal with no signs of trauma. EYES: PERRL, extraocular movements intact, sclera anicteric, conjunctiva clear. No ptosis. ENT: Ears normal, nares patent, oropharynx clear without exudates, moist mucous membranes. NECK: Trachea midline, full range of motion, supple. LUNGS: Distant breath sounds with expiratory wheezing b/l. Pt. is able to speak in full sentences. No crackles, no accessory muscle use. HEART: Regular rate and rhythm, S1, S2 without murmur, rub or gallop. ABDOMEN: Soft, nontender, nondistended, normoactive bowel sounds, no guarding, no rebound, no hepatosplenomegaly, no masses. EXTREMITIES: 2+ pulses, warm, well-perfused, no edema. NEUROLOGICAL: Cranial nerves II through XII grossly intact. Normal speech, gait not observed. PSYCH: Normal mood, normal affect. SKIN: Warm, dry, normal turgor, no rashes or lesions noted Laboratory Results - last 24 hr 07/07/16 07/07/16 07/07/16 12:03 17:47 21:29 WBC RBC Hgb Hct MCV MCHC RDW Plt Count MPV Neutrophils % Lymphocytes % Sodium Potassium Chloride Carbon Dioxide Anion Gap BUN Creatinine Creat Clearance w eGFR POC Glucometer 255 251 365 Random Glucose Calcium Total Bilirubin AST ALT Alkaline Phosphatase Total Protein Albumin 07/08/16 07/08/16 07/08/16 05:28 06:00 06:00 WBC 14.9 H RBC 4.98 Hgb 11.7 Hct 37.8 MCV 76.0 L MCHC 31.0 L RDW 17.1 H Plt Count 368 MPV 7.8 Neutrophils % Y Lymphocytes % Y Sodium 139 Potassium 4.6 Chloride 102 Carbon Dioxide 25 Anion Gap 12 BUN 15 Creatinine 1.0 D Creat Clearance w eGFR > 60 POC Glucometer 227 Random Glucose 256 H Calcium 9.3 Total Bilirubin 0.2 AST 8 L D ALT 21 Alkaline Phosphatase 59 D Total Protein 6.9 Albumin 3.5 Active Medications Generic Name Dose Route Start Last Admin Trade Name Freq PRN Reason Stop Dose Admin Acetaminophen/Butalbital/Caffeine 1 tablet 07/05/16 15:21 07/07/16 19:12 Fioricet - PO 1 tablet Q6H PRN Administration FEVER OR PAIN Albuterol Sulfate 1 amp 07/05/16 15:24 Ventolin 0.5% - NEB Q4H PRN SHORT OF BREATH/WHEEZING Albuterol Sulfate 1 amp 07/06/16 12:00 07/08/16 06:42 Ventolin 0.083% Nebulizer Soln - NEB 1 amp QIDR KAREN Administration Budesonide/Formoterol Fumarate 2 puff 07/05/16 22:00 07/07/16 21:25 Symbicort 160/4.5mcg - IH 2 puff BID KAREN Administration Enoxaparin Sodium 40 mg 07/06/16 10:00 07/07/16 09:10 Lovenox - SQ 40 mg DAILY KAREN Administration Insulin Aspart 1 vial 07/05/16 16:30 07/08/16 06:38 Novolog Vial Sliding Scale - SQ Not Given ACHS KAREN Protocol Methylprednisolone Sodium Succinate 60 mg 07/05/16 21:00 07/08/16 03:27 Solu-Medrol - IVPB 60 mg Q6H-IV KAREN Administration Montelukast Sodium 10 mg 07/06/16 22:00 07/07/16 21:24 Singulair - PO 10 mg HS KAREN Administration Elviteg/Crystal/Emtric/ 1 each 07/05/16 10:00 07/07/16 09:10 Tenofo Ala [Genvoya PO 1 each Tablet] DAILY KAREN Administration Tiotropium [place] 1 puff 07/05/16 16:30 07/07/16 09:10 Spiriva - IH 1 puff DAILY KAREN Administration ASSESSMENT/PLAN: 46 year female HIV (on HAART therapy), anemia, asthma, and morbid obesity admitted with asthma exacerbation; wheezing is slighlty improved but, still dyspneic on minimal exertion and requiring supplemental O2 via nasal cannula. 1. Acute asthma exacerbation -- Continue current dose of Solu-Medrol (60mg q6h) -- Continue Symbicort and Spiriva -- Continue Albuterol nebulizers q6h standing -- Peak flows -- Incentive spirometer, supplemental O2 during the day, bipap at night -- Pulmonology following 2. HIV -- Cont HAART 3. Anemia -- H/H within normal limits -- Receives outpatient iron infusions 4. Hyperglycemia -- Continue FSACHS, ISS while on Solu-Medrol 5. Abdominal pain -- Pt. is stable for CTAP with PO/IV contrast today. -- Chronic, worsening pain, no recent imaging -- Known history of ovarian cyst 6. Headache -- Fiorcet PRN 7. DVT prophylaxis -- Lovenox 40mg sq daily DISPO: Continues to require inpatient care and treatment with nebs, supplemental oxygen, and steroids pending improvement in respiratory status. Visit type - Emergency Visit Emergency Visit: Yes ED Registration Date: 07/06/16 Care time: The patient presented to the Emergency Department on the above date and was hospitalized for further evaluation of their emergent condition. - New Patient This patient is new to me today: Yes Date on this admission: 07/08/16 - Critical Care Critical Care patient: No - Discharge Referral Referred to [facility] No
[2016-07-08] MEDS: [UNRECOGNIZED DRUG - OTHER] PO SCH (11:54)
[2016-07-08] MEDS: BUDESONIDE/FORMETEROL FUMARATE 160/4.5 mcg INHALER IH SCH ×2 (12:00→21:24)
[2016-07-08] MEDS: ENOXAPARIN NA (PORCINE) 40 MG/0.4 ML DISP.SYRIN SQ SCH (12:01)
[2016-07-08] MEDS: TIOTROPIUM BROMIDE 18 MCG/INH (DEVICE W/ 30 CAPSULES) IH SCH (12:01)
[2016-07-08 13:03] LABS: HYPOCHROMIA 1+; PLATELET COMMENT2 NO CLUMPING NOTED; PLATELET COMMENT3 NO CLOTTING DETECTED; PLATELET ESTIMATE ADEQUATE (NORMAL)
[2016-07-08] MEDS: ACETAMINOPHEN/CAFFEINE/BUTALBITAL 1 TAB PO PRN (13:10)
[2016-07-08] MEDS ORDERED: PT OWN MED DRAWER 7, Y5N ONE (21:18)
[2016-07-08] MEDS: MONTELUKAST NA 10 MG TABLET PO SCH (21:24)
[2016-07-08] MEDS ORDERED: INSULIN (NOVOLOG) ASPART 100 UNITS/ML 10ML VIAL ONE (21:28)
[2016-07-08] MEDS ORDERED: ACETAMINOPHEN/CAFFEINE/BUTALBITAL 1 TAB PO ONE (22:51)
[2016-07-09] MEDS ORDERED: ACETAMINOPHEN/CAFFEINE/BUTALBITAL 1 TAB PO PRN (00:10)
[2016-07-09] MEDS: methylPREDNISolone NA SUCC 40 MG/1 ML VIAL IVPB SCH ×4 (03:38→22:43)
[2016-07-09] MEDS: INSULIN SLIDING SCALE (NOVOLOG) 1 VIAL SQ SCH ×4 (06:38→22:42)
[2016-07-09] MEDS: ALBUTEROL SO4 0.083% IH SOL 2.5 MG/3 ML VIAL.NEB. NEB SCH ×4 (06:39→23:52)
[2016-07-09 07:37] LABS: BASOPHIL 0.4 % (0-2.0); EOSINOPHIL 0.1 % (0-4.5); MCH 23.4 pg (25.7-33.7); MCHC 31.1 g/dl (32.0-36.0); MEAN CELL VOLUME 75.1 fl (80-96); MEAN PLT VOLUME 7.8 fl (7.5-11.1); NEUTROPHILS 84.8 % (42.8-82.8); PLATELET COUNT 343 K/MM3 (134-434); RDW 17.3 % (11.6-15.6); WHITE BLOOD COUNT 15.6 K/mm3 (4.0-10.0)
--- NOTE | 2016-07-09 08:26 | PN ---
Physical Exam: SUBJECTIVE: Patient seen and examined at bedside. She is complaining of chest pressure when she coughs. She also states that she feels like "she swallowed water as if she were swimming". She also admits that it hurts to take a large breath. She states that she also has a headache, but it is like her usual chronic headaches. She states that the pain may be worse d/t her menstrual cycle. Pt. was made aware of her CT scan results. OBJECTIVE: Vital Signs Period Temp Pulse Resp BP Sys/So Pulse Ox Last 24 Hr 97.7 F-97.9 F 65-83 17-20 112-146/62-81 95-98 GENERAL: Morbidly obese pt. Awake, alert, and fully oriented to person, place and time, in no acute distress. HEAD: Normal with no signs of trauma. EYES: PERRL, extraocular movements intact, sclera anicteric, conjunctiva clear. No ptosis. ENT: Ears normal, nares patent, oropharynx clear without exudates, moist mucous membranes. NECK: Trachea midline, full range of motion, supple. LUNGS: Distant breath sounds with expiratory wheezing b/l. Pt. is able to speak in full sentences. No crackles, no accessory muscle use. HEART: Regular rate and rhythm, S1, S2 without murmur, rub or gallop. ABDOMEN: Soft, nontender, nondistended, normoactive bowel sounds, no guarding, no rebound, no hepatosplenomegaly, no masses. EXTREMITIES: 2+ pulses, warm, well-perfused, no edema. NEUROLOGICAL: Cranial nerves II through XII grossly intact. Normal speech, gait not observed. PSYCH: Normal mood, normal affect. SKIN: Warm, dry, normal turgor, no rashes or lesions noted Laboratory Results - last 24 hr 07/08/16 07/08/16 07/08/16 06:00 06:00 11:09 WBC 14.9 H RBC 4.98 Hgb 11.7 Hct 37.8 MCV 76.0 L MCHC 31.0 L RDW 17.1 H Plt Count 368 MPV 7.8 Neutrophils % 74.0 Lymphocytes % 17.0 D Monocytes % 4.0 Eosinophils % Basophils % Band Neutrophils 1.0 Differential Comment Few large plts Reactive Lymphocytes 4 D Platelet Estimate Adequate Platelet Comment No clumping noted Hypochromic-Microcytic 1+ Sodium 139 Potassium 4.6 Chloride 102 Carbon Dioxide 25 Anion Gap 12 BUN 15 Creatinine 1.0 D Creat Clearance w eGFR > 60 POC Glucometer 194 Random Glucose 256 H Calcium 9.3 Total Bilirubin 0.2 AST 8 L D ALT 21 Alkaline Phosphatase 59 D Total Protein 6.9 Albumin 3.5 07/08/16 07/08/16 07/09/16 17:15 21:21 05:38 WBC RBC Hgb Hct MCV MCHC RDW Plt Count MPV Neutrophils % Lymphocytes % Monocytes % Eosinophils % Basophils % Band Neutrophils Differential Comment Reactive Lymphocytes Platelet Estimate Platelet Comment Hypochromic-Microcytic Sodium Potassium Chloride Carbon Dioxide Anion Gap BUN Creatinine Creat Clearance w eGFR POC Glucometer 258 373 201 Random Glucose Calcium Total Bilirubin AST ALT Alkaline Phosphatase Total Protein Albumin 07/09/16 06:00 WBC 15.6 H RBC 5.06 Hgb 11.8 Hct 38.0 MCV 75.1 L MCHC 31.1 L RDW 17.3 H Plt Count 343 MPV 7.8 Neutrophils % 84.8 H Lymphocytes % 11.9 D Monocytes % 2.8 L Eosinophils % 0.1 D Basophils % 0.4 Band Neutrophils Differential Comment Reactive Lymphocytes Platelet Estimate Platelet Comment Hypochromic-Microcytic Sodium Potassium Chloride Carbon Dioxide Anion Gap BUN Creatinine Creat Clearance w eGFR POC Glucometer Random Glucose Calcium Total Bilirubin AST ALT Alkaline Phosphatase Total Protein Albumin Active Medications Generic Name Dose Route Start Last Admin Trade Name Freq PRN Reason Stop Dose Admin Acetaminophen/Butalbital/Caffeine 1 tablet 07/09/16 00:10 07/09/16 08:00 Fioricet - PO 07/10/16 00:09 1 tablet Q12H PRN Administration FEVER OR PAIN Albuterol Sulfate 1 amp 07/05/16 15:24 Ventolin 0.5% - NEB Q4H PRN SHORT OF BREATH/WHEEZING Albuterol Sulfate 1 amp 07/06/16 12:00 07/09/16 06:39 Ventolin 0.083% Nebulizer Soln - NEB 1 amp QIDR KAREN Administration Budesonide/Formoterol Fumarate 2 puff 07/05/16 22:00 07/08/16 21:24 Symbicort 160/4.5mcg - IH 2 puff BID KAREN Administration Enoxaparin Sodium 40 mg 07/06/16 10:00 07/08/16 12:01 Lovenox - SQ 40 mg DAILY KAREN Administration Insulin Aspart 1 vial 07/05/16 16:30 07/09/16 06:38 Novolog Vial Sliding Scale - SQ 4 units ACHS KAREN Administration Protocol Methylprednisolone Sodium Succinate 60 mg 07/05/16 21:00 07/09/16 03:38 Solu-Medrol - IVPB 60 mg Q6H-IV KAREN Administration Montelukast Sodium 10 mg 07/06/16 22:00 07/08/16 21:24 Singulair - PO 10 mg HS KAREN Administration Elviteg/Crystal/Emtric/ 1 each 07/05/16 10:00 07/08/16 11:54 Tenofo Ala [Genvoya PO 1 each Tablet] DAILY KAREN Administration Tiotropium [place] 1 puff 07/05/16 16:30 07/08/16 12:01 Spiriva - IH 1 puff DAILY KAREN Administration Imaging: CTAP:Impression: Minimal to mild left-sided colonic diverticulitis without evidence of acute diverticulitis. In comparison to a prior CT study of 05/15/14 there is apparent interval development of mildly increased mesenteric density centrally within the left paramedian aspect at the level of the lower abdomen which could be on the basis of inflammation. This may be a subclinical finding. Correlation with [address] is suggested to document stability/ resolution and exclude developing pathology. No associated CAD is identified. 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 Diffuse hepatic steatosis. 2 mm non obstructing R renal calculus. Assessment: 46 year female HIV (on HAART therapy), anemia, asthma, and morbid obesity admitted with asthma exacerbation; wheezing is slightly improved but, still dyspneic on minimal exertion and requiring supplemental O2 via nasal cannula. Plan: 1. Acute asthma exacerbation -- Continue current dose of Solu-Medrol (60mg q6h) -- Continue Symbicort and Spiriva -- Continue Albuterol nebulizers q6h standing -- Peak flows -- Incentive spirometer, supplemental O2 during the day, bipap at night -- Mucolytic -- Pulmonology following 2. Chest Pain -- Stat EKG, CXR, and Troponins r/o ACS -- Less likely PE; Well's criteria score 1.5: low risk group 2. HIV -- Cont HAART 3. Anemia -- H/H within normal limits -- Receives outpatient iron infusions 4. Hyperglycemia -- Continue FSACHS, ISS while on Solu-Medrol -- Sugars consistently over 200; add Levimer 10units HS while on Solu-Medrol 5. Abdominal pain -- CT abdomen complete; see above -- Chronic, worsening pain -- Known history of ovarian cyst 6. Headache -- Fiorcet PRN 7. DVT prophylaxis -- Lovenox 40mg sq daily DISPO: Continues to require inpatient care and treatment with nebs, supplemental oxygen, and steroids pending improvement in respiratory status. Visit type - Emergency Visit Emergency Visit: Yes ED Registration Date: 07/06/16 Care time: The patient presented to the Emergency Department on the above date and was hospitalized for further evaluation of their emergent condition. - New Patient This patient is new to me today: No - Critical Care Critical Care patient: No - Discharge Referral Referred to [facility] No
[2016-07-09] MEDS ORDERED: PT OWN MED DRAWER 7, Y5N ONE (11:36)
[2016-07-09] MEDS: ENOXAPARIN NA (PORCINE) 40 MG/0.4 ML DISP.SYRIN SQ SCH (11:59)
[2016-07-09] MEDS: [UNRECOGNIZED DRUG - OTHER] PO SCH (12:01)
[2016-07-09] MEDS: BUDESONIDE/FORMETEROL FUMARATE 160/4.5 mcg INHALER IH SCH ×2 (12:01→22:45)
[2016-07-09] MEDS: TIOTROPIUM BROMIDE 18 MCG/INH (DEVICE W/ 30 CAPSULES) IH SCH (12:02)
--- NOTE | 2016-07-09 12:15 | PN ---
Progress Note (short form) - Note Progress Note: PULMONARY AWAKE/ALERT VSS/AFEBRILE ANICTERIC DISTANT B/L EXP WHEEZE PERSIST S1S2 BS+ OBESE LESS EDEMA B/L LABS/MEDS/NOTES/IMAGING REVIEWED (1) Asthma exacerbation Code(s): J45.901 - UNSPECIFIED ASTHMA WITH (ACUTE) EXACERBATION Qualifiers: Asthma severity: moderate persistent Qualified Code(s): J45.41 - Moderate persistent asthma with (acute) exacerbation (2) Anemia Code(s): D64.9 - ANEMIA, UNSPECIFIED (3) HIV (human immunodeficiency virus infection) Code(s): Z21 - ASYMPTOMATIC HUMAN IMMUNODEFICIENCY VIRUS INFECTION STATUS (4) Obesity Code(s): E66.9 - OBESITY, UNSPECIFIED (5) Sleep apnea, obstructive Code(s): G47.33 - OBSTRUCTIVE SLEEP APNEA (ADULT) (PEDIATRIC) PLAN: Continue Medrol at current dose Symbicort BID Spirivia daily Albuterol nebs prn Follow BGM Bedside peak flow monitoring PAP QHS and PRN O2 as needed Singmichir BAKARI MASON MD
[2016-07-09 15:41] LABS: TROPONIN I < 0.02 ng/ml (0.00-0.05)
[2016-07-09] MEDS ORDERED: INSULIN (NOVOLOG) ASPART 100 UNITS/ML 10ML VIAL ONE (17:44)
[2016-07-09] MEDS ORDERED: BENZOCAINE/MENTH/CETYLPYRD CL 1 EACH LOZENGE MM PRN (17:50)
[2016-07-09] MEDS ORDERED: guaiFENesin 200 MG/10 ML 10 ML UNIT-DOSE CUPS PO PRN (17:50)
[2016-07-09] MEDS ORDERED: INSULIN DETEMIR 100 UNITS/ML MDV SQ SCH (22:00)
[2016-07-09] MEDS ORDERED: guaiFENesin/D-METHORPHAN HB 1 EACH TAB.ER.12H PO SCH (22:00)
[2016-07-09] MEDS: guaiFENesin/D-METHORPHAN HB 1 EACH TAB.ER.12H PO SCH (22:45)
[2016-07-09] MEDS: MONTELUKAST NA 10 MG TABLET PO SCH (22:45)
[2016-07-10] MEDS: methylPREDNISolone NA SUCC 40 MG/1 ML VIAL IVPB SCH ×4 (03:30→22:47)
[2016-07-10] MEDS: INSULIN SLIDING SCALE (NOVOLOG) 1 VIAL SQ SCH ×4 (06:15→22:37)
[2016-07-10] MEDS: ALBUTEROL SO4 0.083% IH SOL 2.5 MG/3 ML VIAL.NEB. NEB SCH ×2 (07:10→11:15)
[2016-07-10 07:40] LABS: BASOPHIL 0.1 % (0-2.0); MCH 23.5 pg (25.7-33.7); MCHC 31.5 g/dl (32.0-36.0); MEAN CELL VOLUME 74.7 fl (80-96); MEAN PLT VOLUME 7.5 fl (7.5-11.1); NEUTROPHILS 85.8 % (42.8-82.8); PLATELET COUNT 343 K/MM3 (134-434); RDW 16.9 % (11.6-15.6); WHITE BLOOD COUNT 15.9 K/mm3 (4.0-10.0)
[2016-07-10 08:13] LABS: ALBUMIN 3.2 g/dl (3.4-5.0); ANION GAP 10 (8-16); CALCIUM 8.2 mg/dL (8.5-10.1); CO2 26 mmol/L (21-32); GLUCOSE,RANDOM 187 mg/dL (74-106); SGPT/ALT 20 U/L (12-78)
[2016-07-10 08:16] LABS: ALK PHOS 49 U/L (45-117); BILIRUBIN,TOTAL 0.3 mg/dL (0.2-1.0); CREATININE 0.8 mg/dL (0.55-1.02); TOT PROT 6.4 g/dl (6.4-8.2)
[2016-07-10 08:22] LABS: SGOT/AST 4 U/L (15-37)
[2016-07-10] MEDS: ENOXAPARIN NA (PORCINE) 40 MG/0.4 ML DISP.SYRIN SQ SCH (09:02)
[2016-07-10] MEDS: [UNRECOGNIZED DRUG - OTHER] PO SCH (09:03)
[2016-07-10] MEDS: TIOTROPIUM BROMIDE 18 MCG/INH (DEVICE W/ 30 CAPSULES) IH SCH (09:03)
[2016-07-10] MEDS: BUDESONIDE/FORMETEROL FUMARATE 160/4.5 mcg INHALER IH SCH ×2 (09:04→22:41)
[2016-07-10] MEDS ORDERED: PT OWN MED DRAWER 7, Y5N ONE ×2 (11:00→20:40)
--- NOTE | 2016-07-10 11:58 | PN ---
Progress Note (short form) - Note Progress Note: PULMONARY Breathing about the same. Still with chest tightness, cough and wheezing. Peak flow performed at bedside 240. Last Vital Signs Temp Pulse Resp BP Pulse Ox 97.6 F 66 20 140/88 95 07/10/16 06:00 07/10/16 06:00 07/10/16 06:00 07/10/16 06:00 07/10/16 07:10 Gen: NAD in chair Heart: RRR Lung: distant breath sounds, scattered wheezes Abd: soft, obese, nontender Ext: + edema CBC, BMP 07/10/16 05:55 07/10/16 05:55 Active Medications Acetaminophen/Butalbital/Caffeine (Fioricet -) 1 tablet PO Q6H PRN PRN Reason: FEVER OR PAIN Albuterol Sulfate (Ventolin 0.5% -) 1 amp NEB Q4H PRN PRN Reason: SHORT OF BREATH/WHEEZING Albuterol Sulfate (Ventolin 0.083% Nebulizer Soln -) 1 amp NEB QIDR [facility] Last Admin: 07/10/16 07:10 Dose: Not Given Benzocaine/Menthol (Cepacol Lozenge -) 1 each MM PRN PRN PRN Reason: SORE THROAT Budesonide/Formoterol Fumarate (Symbicort 160/4.5mcg -) 2 puff IH BID [facility] Last Admin: 07/10/16 09:04 Dose: 2 puff Enoxaparin Sodium (Lovenox -) 40 mg SQ DAILY [facility] Last Admin: 07/10/16 09:02 Dose: 40 mg Guaifenesin (Mucinex Dm -) 1 tablet PO BID [facility] Stop: 07/10/16 21:59 Last Admin: 07/09/16 22:45 Dose: 1 tablet Guaifenesin (Robitussin -) 10 ml PO Q6H PRN PRN Reason: COUGH Insulin Aspart (Novolog Vial Sliding Scale -) 1 vial SQ ACHS [facility] PRN Reason: Protocol Last Admin: 07/10/16 06:15 Dose: 2 units Insulin Detemir (Levemir Vial) 10 units SQ HS [facility] Last Admin: 07/09/16 22:42 Dose: 10 unit Methylprednisolone Sodium Succinate (Solu-Medrol -) 60 mg IVPB Q6H-IV [facility] Last Admin: 07/10/16 08:52 Dose: 60 mg Montelukast Sodium (Singulair -) 10 mg PO HS [facility] Last Admin: 07/09/16 22:45 Dose: 10 mg Elviteg/Crystal/Emtric/Tenofo Ala [Genvoya Tablet] 1 each PO DAILY [facility] Last Admin: 07/10/16 09:03 Dose: 1 each Tiotropium [place] (Spiriva -) 1 puff IH DAILY [facility] Last Admin: 07/10/16 09:03 Dose: 1 puff A/P Acute Asthma Exacerbation HIV Morbid Obesity PUMA - continue medrol at current dose - inhaled bronchodilators standing and PRN - O2 to keep SpO2 >90% - singulair - glucose control while on systemic steroids - daily peak flow monitoring - BiPAP at night - DVT prophylaxis
[2016-07-10] MEDS: ACETAMINOPHEN/CAFFEINE/BUTALBITAL 1 TAB PO PRN (12:04)
[2016-07-10] MEDS: guaiFENesin/D-METHORPHAN HB 1 EACH TAB.ER.12H PO SCH ×2 (12:05→22:41)
--- NOTE | 2016-07-10 13:20 | EKG ---
Test Reason : Blood Pressure : / mmHG Vent. Rate : 075 BPM Atrial Rate : 075 BPM P-R Int : 136 ms QRS Dur : 114 ms QT Int : 420 ms P-R-T Axes : 038 018 002 degrees QTc Int : 469 ms NORMAL SINUS RHYTHM NORMAL ECG WHEN COMPARED WITH ECG OF 04-JUL-2016 22:20, VENT. RATE HAS DECREASED BY 39 BPM T WAVE VARIATION Confirmed by ZACKARY SANCHEZ MD ([id number]) on 07/10/2016 1:19:40 PM Referred By: Saleem WARNER Confirmed By:ZACKARY SANCHEZ MD
--- NOTE | 2016-07-10 13:40 | PN ---
Physical Exam: SUBJECTIVE: Patient seen and examined. She says her chest hurts when she coughs , she feels it come up her throat. She is not ambulating much. Events: CE negative, EKG no ischemic changes, CXR negative for acute process OBJECTIVE: Vital Signs Period Temp Pulse Resp BP Sys/So Pulse Ox Last 24 Hr 97.5 F-98.6 F 66-84 20-20 121-146/64-88 95-95 PE Neuro: alert, awake, cn 2-12intact Pulm: + cough, dyspnea, + NC, lungs diminished and distant CV: s1 s2 rrr no mrg Abd: obese, s nt nd + bs Ext: lower ext tenderness to palpation, no le edema Laboratory Results - last 24 hr 07/09/16 07/10/16 07/10/16 14:20 05:55 05:55 WBC 15.9 H RBC 5.02 Hgb 11.8 Hct 37.5 MCV 74.7 L MCHC 31.5 L RDW 16.9 H Plt Count 343 MPV 7.5 Neutrophils % 85.8 H Lymphocytes % 10.4 Monocytes % 3.7 L Eosinophils % 0.0 D Basophils % 0.1 Sodium 140 Potassium 4.3 Chloride 104 Carbon Dioxide 26 Anion Gap 10 BUN 16 Creatinine 0.8 Creat Clearance w eGFR > 60 Random Glucose 187 H D Calcium 8.2 L Total Bilirubin 0.3 D AST 4 L D ALT 20 Alkaline Phosphatase 49 Creatine Kinase 44 Troponin I < 0.02 Total Protein 6.4 Albumin 3.2 L Active Medications Generic Name Dose Route Start Last Admin Trade Name Freq PRN Reason Stop Dose Admin Acetaminophen/Butalbital/Caffeine 1 tablet 07/10/16 11:40 07/10/16 12:04 Fioricet - PO 1 tablet Q6H PRN Administration FEVER OR PAIN Albuterol Sulfate 1 amp 07/05/16 15:24 Ventolin 0.5% - NEB Q4H PRN SHORT OF BREATH/WHEEZING Albuterol Sulfate 1 amp 07/06/16 12:00 07/10/16 07:10 Ventolin 0.083% Nebulizer Soln - NEB Not Given QIDR [facility] Benzocaine/Menthol 1 each 07/09/16 17:50 Cepacol Lozenge - MM PRN PRN SORE THROAT Budesonide/Formoterol Fumarate 2 puff 07/05/16 22:00 07/10/16 09:04 Symbicort 160/4.5mcg - IH 2 puff BID [facility] Administration Enoxaparin Sodium 40 mg 07/06/16 10:00 07/10/16 09:02 Lovenox - SQ 40 mg DAILY [facility] Administration Guaifenesin 1 tablet 07/09/16 22:00 07/10/16 12:05 Mucinex Dm - PO 07/10/16 21:59 1 tablet BID [facility] Administration Guaifenesin 10 ml 07/09/16 17:50 Robitussin - PO Q6H PRN COUGH Insulin Aspart 1 vial 07/05/16 16:30 07/10/16 13:28 Novolog Vial Sliding Scale - SQ 2 units ACHS [facility] Administration Protocol Insulin Detemir 9 units 07/10/16 22:00 Levemir Vial SQ BID [facility] Methylprednisolone Sodium Succinate 60 mg 07/05/16 21:00 07/10/16 08:52 Solu-Medrol - IVPB 60 mg Q6H-IV [facility] Administration Montelukast Sodium 10 mg 07/06/16 22:00 07/09/16 22:45 Singulair - PO 10 mg HS [facility] Administration Elviteg/Crystal/Emtric/ 1 each 07/05/16 10:00 07/10/16 09:03 Tenofo Ala [Genvoya PO 1 each Tablet] DAILY [facility] Administration Tiotropium [place] 1 puff 07/05/16 16:30 07/10/16 09:03 Spiriva - IH 1 puff DAILY [facility] Administration Imaging: CTAP: Minimal to mild left-sided colonic diverticulitis without evidence of acute diverticulitis. In comparison to a prior CT study of 05/15/14 there is apparent interval development of mildly increased mesenteric density centrally within the left paramedian aspect at the level of the lower abdomen, possibly inflammation vs subclinical finding. 2 mm non obstructing R renal calculus. Assessment: 46 year female HIV (on HAART therapy), anemia, asthma, and morbid obesity admitted with asthma exacerbation; wheezing is slightly improved but, still dyspneic on minimal exertion and requiring supplemental O2 via nasal cannula. Plan: 1. Acute asthma exacerbation - Solu-Medrol 60mg q6h - Continue Symbicort and Spiriva - Continue Albuterol nebulizers q6h standing - Peak flows - BiPap HS 2. Chest Pain - Possibly acid reflux vs ulcer from high dose steroid, cardiac work up negative - Start protonix 40 BID x2 days; daily thereafter 3. HIV - Cont HAART 4. Anemia - Hgb stable; receives outpatient iron infusions 5. Hyperglycemia - ISS, BGM ACHS - Increase levemir 9units BID 6. Abdominal pain - CTAP above, follow up repeat in 3 months 7. Headache - hx of migraines - Fiorcet PRN 8. DVT prophylaxis - Lovenox 40mg sq daily Visit type - Emergency Visit Emergency Visit: Yes ED Registration Date: 07/06/16 Care time: The patient presented to the Emergency Department on the above date and was hospitalized for further evaluation of their emergent condition. - New Patient This patient is new to me today: No - Critical Care Critical Care patient: No
[2016-07-10] MEDS ORDERED: MAG HYDROX/AL HYDROX/SIMETH 30 ML UNIT-DOSE CUP PO ONE (17:36)
[2016-07-10] MEDS ORDERED: ALPRAZolam 2 MG TABLET PO PRN (17:43)
[2016-07-10] MEDS: ALBUTEROL SO4 0.5 % INH SOLN 2.5 MG/0.5 ML VIAL.NEB. NEB PRN ×2 (18:50→22:23)
[2016-07-10] MEDS ORDERED: PANTOPRAZOLE 40 MG TABLET (FP) PO SCH (22:00)
[2016-07-10] MEDS: MONTELUKAST NA 10 MG TABLET PO SCH (22:39)
[2016-07-10] MEDS: PANTOPRAZOLE 40 MG TABLET (FP) PO SCH (22:40)
[2016-07-10] MEDS: INSULIN DETEMIR 100 UNITS/ML MDV SQ SCH (22:42)
[2016-07-11] MEDS: methylPREDNISolone NA SUCC 40 MG/1 ML VIAL IVPB SCH ×4 (02:44→20:24)
[2016-07-11] MEDS: INSULIN DETEMIR 100 UNITS/ML MDV SQ SCH ×2 (06:36→21:28)
[2016-07-11] MEDS: INSULIN SLIDING SCALE (NOVOLOG) 1 VIAL SQ SCH ×4 (06:36→21:29)
[2016-07-11] MEDS: ACETAMINOPHEN/CAFFEINE/BUTALBITAL 1 TAB PO PRN ×2 (08:50→14:14)
[2016-07-11] MEDS ORDERED: PT OWN MED DRAWER 7, Y5N ONE (09:23)
[2016-07-11] MEDS: ENOXAPARIN NA (PORCINE) 40 MG/0.4 ML DISP.SYRIN SQ SCH (09:28)
[2016-07-11] MEDS: [UNRECOGNIZED DRUG - OTHER] PO SCH (09:28)
[2016-07-11] MEDS: guaiFENesin/D-METHORPHAN HB 1 EACH TAB.ER.12H PO SCH ×2 (09:29→21:30)
[2016-07-11] MEDS: PANTOPRAZOLE 40 MG TABLET (FP) PO SCH ×2 (09:30→21:31)
[2016-07-11] MEDS: TIOTROPIUM BROMIDE 18 MCG/INH (DEVICE W/ 30 CAPSULES) IH SCH (09:31)
[2016-07-11] MEDS: BUDESONIDE/FORMETEROL FUMARATE 160/4.5 mcg INHALER IH SCH ×2 (09:32→21:34)
--- NOTE | 2016-07-11 10:06 | PN ---
Physical Exam: SUBJECTIVE: Patient seen and examined. She was very sob when walking down the halls yesterday. She is also having some joint pain. Her chest pressure is only mildly improved OBJECTIVE: Vital Signs Period Temp Pulse Resp BP Sys/So Pulse Ox Last 24 Hr 97.2 F-97.8 F 67-79 20-20 123-140/60-85 98-98 PE Neuro: alert, awake, cn 2-12intact Pulm: + cough, dyspnea, + NC, lungs diminished and distant CV: s1 s2 rrr no mrg Abd: obese, s nt nd + bs Ext: lower ext tenderness to palpation, no le edema Laboratory Results - last 24 hr 07/10/16 07/10/16 07/10/16 06:14 12:19 16:58 POC Glucometer 172 170 266 07/10/16 22:36 POC Glucometer 238 Active Medications Generic Name Dose Route Start Last Admin Trade Name Freq PRN Reason Stop Dose Admin Acetaminophen/Butalbital/Caffeine 1 tablet 07/10/16 11:40 07/11/16 08:50 Fioricet - PO 1 tablet Q6H PRN Administration FEVER OR PAIN Albuterol Sulfate 1 amp 07/05/16 15:24 07/10/16 22:23 Ventolin 0.5% - NEB 1 amp Q4H PRN Administration SHORT OF BREATH/WHEEZING Albuterol Sulfate 1 amp 07/10/16 17:53 Ventolin 0.083% Nebulizer Soln - NEB Q6H PRN SHORT OF BREATH/WHEEZING Alprazolam 1 mg 07/10/16 17:43 Xanax - PO Q12H PRN ANXIETY Benzocaine/Menthol 1 each 07/09/16 17:50 Cepacol Lozenge - MM PRN PRN SORE THROAT Budesonide/Formoterol Fumarate 2 puff 07/05/16 22:00 07/11/16 09:32 Symbicort 160/4.5mcg - IH 2 puff BID [facility] Administration Enoxaparin Sodium 40 mg 07/06/16 10:00 07/11/16 09:28 Lovenox - SQ 40 mg DAILY [facility] Administration Guaifenesin 10 ml 07/09/16 17:50 Robitussin - PO Q6H PRN COUGH Guaifenesin 1 tablet 07/10/16 17:36 07/11/16 09:29 Mucinex Dm - PO 07/11/16 21:59 1 tablet BID [facility] Administration Insulin Aspart 1 vial 07/05/16 16:30 07/11/16 06:36 Novolog Vial Sliding Scale - SQ 2 units ACHS [facility] Administration Protocol Insulin Detemir 9 units 07/10/16 22:00 07/11/16 06:36 Levemir Vial SQ 9 units 0700,2200 [facility] Administration Methylprednisolone Sodium Succinate 60 mg 07/05/16 21:00 07/11/16 09:26 Solu-Medrol - IVPB 60 mg Q6H-IV [facility] Administration Montelukast Sodium 10 mg 07/06/16 22:00 07/10/16 22:39 Singulair - PO 10 mg HS [facility] Administration Elviteg/Crystal/Emtric/ 1 each 07/05/16 10:00 07/11/16 09:28 Tenofo Ala [Genvoya PO 1 each Tablet] DAILY [facility] Administration Pantoprazole Sodium 40 mg 07/13/16 10:00 Protonix - PO DAILY [facility] Pantoprazole Sodium 40 mg 07/10/16 17:41 07/11/16 09:30 Protonix - PO 07/12/16 17:40 40 mg BID [facility] Administration Tiotropium [place] 1 puff 07/05/16 16:30 07/11/16 09:31 Spiriva - IH 1 puff DAILY [facility] Administration Imaging: CTAP: Mild left-sided colonic diverticulitis w/o evidence of acute diverticulitis. In comparison to a prior CT study of 05/15/14 there is apparent interval development of mildly increased mesenteric density centrally within the left paramedian aspect at the level of the lower abdomen, possibly inflammation vs subclinical finding. 2 mm non obstructing R renal calculus. Assessment: 46 year female HIV (on HAART therapy), anemia, asthma, and morbid obesity admitted with asthma exacerbation; wheezing is slightly improved but, still dyspneic on minimal exertion and requiring supplemental O2 via nasal cannula. Plan: 1. Acute asthma exacerbation - Solu-Medrol 60mg q6h - Continue Symbicort and Spiriva - Continue Albuterol nebulizers q6h standing - Peak flows - BiPap HS - Pulm following 2. Chest Pain - Will get D dimer - Protonix 40 BID x2 days; daily thereafter 3. HIV - Cont HAART 4. Anemia - Hgb stable; receives outpatient iron infusions 5. Hyperglycemia - ISS, BGM ACHS - Increase levemir 12 units BID 6. Abdominal pain - CTAP above, follow up repeat in 3 months 7. Headache - hx of migraines - Fiorcet PRN 8. DVT prophylaxis - Lovenox 40mg sq daily Visit type - Emergency Visit Emergency Visit: Yes ED Registration Date: 07/06/16 Care time: The patient presented to the Emergency Department on the above date and was hospitalized for further evaluation of their emergent condition. - New Patient This patient is new to me today: No - Critical Care Critical Care patient: No
[2016-07-11] MEDS: ALBUTEROL SO4 0.083% IH SOL 2.5 MG/3 ML VIAL.NEB. NEB PRN ×2 (10:17→23:05)
--- NOTE | 2016-07-11 10:59 | PN ---
Progress Note (short form) - Note Progress Note: PULMONARY Breathing maybe slightly better. Still with chest tightness, cough and wheezing. Peak flows today 250-290. Last Vital Signs Temp Pulse Resp BP Pulse Ox 97.8 F 72 20 134/68 97 07/11/16 14:00 07/11/16 14:00 07/11/16 14:00 07/11/16 14:00 07/11/16 10:00 Gen: NAD in chair Heart: RRR Lung: distant breath sounds, poor air movement Abd: soft, obese, nontender Ext: + edema CBC, BMP 07/10/16 05:55 07/10/16 05:55 Active Medications Acetaminophen/Butalbital/Caffeine (Fioricet -) 1 tablet PO Q6H PRN PRN Reason: FEVER OR PAIN Last Admin: 07/11/16 14:14 Dose: 1 tablet Albuterol Sulfate (Ventolin 0.5% -) 1 amp NEB Q4H PRN PRN Reason: SHORT OF BREATH/WHEEZING Last Admin: 07/10/16 22:23 Dose: 1 amp Albuterol Sulfate (Ventolin 0.083% Nebulizer Soln -) 1 amp NEB Q6H PRN PRN Reason: SHORT OF BREATH/WHEEZING Last Admin: 07/11/16 10:17 Dose: 1 amp Alprazolam (Xanax -) 1 mg PO Q12H PRN PRN Reason: ANXIETY Benzocaine/Menthol (Cepacol Lozenge -) 1 each MM PRN PRN PRN Reason: SORE THROAT Budesonide/Formoterol Fumarate (Symbicort 160/4.5mcg -) 2 puff IH BID [facility] Last Admin: 07/11/16 09:32 Dose: 2 puff Enoxaparin Sodium (Lovenox -) 40 mg SQ DAILY [facility] Last Admin: 07/11/16 09:28 Dose: 40 mg Guaifenesin (Robitussin -) 10 ml PO Q6H PRN PRN Reason: COUGH Guaifenesin (Mucinex Dm -) 1 tablet PO BID [facility] Stop: 07/12/16 21:59 Last Admin: 07/11/16 09:29 Dose: 1 tablet Insulin Aspart (Novolog Vial Sliding Scale -) 1 vial SQ ACHS [facility] PRN Reason: Protocol Last Admin: 07/11/16 12:07 Dose: 2 units Insulin Detemir (Levemir Vial) 12 units SQ 0700,2200 [facility] Methylprednisolone Sodium Succinate (Solu-Medrol -) 60 mg IVPB Q6H-IV [facility] Last Admin: 07/11/16 14:16 Dose: 60 mg Montelukast Sodium (Singulair -) 10 mg PO HS [facility] Last Admin: 07/10/16 22:39 Dose: 10 mg Elviteg/Crystal/Emtric/Tenofo Ala [Genvoya Tablet] 1 each PO DAILY [facility] Last Admin: 07/11/16 09:28 Dose: 1 each Pantoprazole Sodium (Protonix -) 40 mg PO DAILY [facility] Pantoprazole Sodium (Protonix -) 40 mg PO BID [facility] Stop: 07/12/16 17:40 Last Admin: 07/11/16 09:30 Dose: 40 mg Tiotropium [place] (Spiriva -) 1 puff IH DAILY [facility] Last Admin: 07/11/16 09:31 Dose: 1 puff A/P Acute Asthma Exacerbation HIV Morbid Obesity PUMA - continue medrol at current dose - inhaled bronchodilators standing and PRN - O2 to keep SpO2 >90% - singulair - glucose control while on systemic steroids - daily peak flow monitoring - BiPAP at night - DVT prophylaxis
[2016-07-11] MEDS ORDERED: INSULIN (NOVOLOG) ASPART 100 UNITS/ML 10ML VIAL ONE (19:46)
[2016-07-11] MEDS: MONTELUKAST NA 10 MG TABLET PO SCH (21:31)
[2016-07-12] MEDS: methylPREDNISolone NA SUCC 40 MG/1 ML VIAL IVPB SCH ×4 (03:18→18:29)
[2016-07-12] MEDS: INSULIN SLIDING SCALE (NOVOLOG) 1 VIAL SQ SCH ×4 (06:06→22:09)
[2016-07-12] MEDS: INSULIN DETEMIR 100 UNITS/ML MDV SQ SCH ×2 (06:43→22:09)
[2016-07-12] MEDS ORDERED: INSULIN (NOVOLOG) ASPART 100 UNITS/ML 10ML VIAL ONE ×2 (06:56→21:57)
[2016-07-12] MEDS: ALBUTEROL SO4 0.083% IH SOL 2.5 MG/3 ML VIAL.NEB. NEB PRN (07:00)
[2016-07-12] MEDS: ENOXAPARIN NA (PORCINE) 40 MG/0.4 ML DISP.SYRIN SQ SCH (11:16)
[2016-07-12] MEDS: TIOTROPIUM BROMIDE 18 MCG/INH (DEVICE W/ 30 CAPSULES) IH SCH (11:16)
[2016-07-12] MEDS: PANTOPRAZOLE 40 MG TABLET (FP) PO SCH (11:17)
[2016-07-12] MEDS: ACETAMINOPHEN/CAFFEINE/BUTALBITAL 1 TAB PO PRN (11:17)
[2016-07-12] MEDS: BUDESONIDE/FORMETEROL FUMARATE 160/4.5 mcg INHALER IH SCH ×2 (11:18→22:06)
[2016-07-12] MEDS: guaiFENesin/D-METHORPHAN HB 1 EACH TAB.ER.12H PO SCH (11:19)
[2016-07-12] MEDS: [UNRECOGNIZED DRUG - OTHER] PO SCH (11:19)
--- NOTE | 2016-07-12 11:24 | PN ---
Physical Exam: SUBJECTIVE: Patient seen and examined at side of chair. No new complaints. No overnight events. Breathing is slightly better today. Continues to complain of chest tightness. States mucous is difficult to bring up and very thick. Breathless with speaking. Peak flows 300 OBJECTIVE: Vital Signs Period Temp Pulse Resp BP Sys/So Pulse Ox Last 24 Hr 97.4 F-97.9 F 62-72 20-20 130-152/62-81 98 GENERAL:AAO x3, NAD HEAD:NC/AT. EYES: PERRL, sclera anicteric, conjunctiva clear. No ptosis. ENT: Dry mucous membranes. NECK:supple. No JVD LUNGS: On 35% venti mask,Diminished breath sounds bilat, mild apical wheezes, no crackles, no accessory muscle use. HEART:RRR, S1, S2 without murmur, rub or gallop. ABDOMEN: Soft, Obese, nontender, nondistended, normoactive bowel sounds EXTREMITIES: 2+ pulses, warm, well-perfused, 2+ LE edema. NEUROLOGICAL: alert and oriented. PSYCH: anxious. SKIN: Warm, dry, normal turgor, no rashes or lesions noted Laboratory Results - last 24 hr 07/11/16 07/11/16 07/11/16 05:14 11:45 12:05 D-Dimer < 200 POC Glucometer 183 161 07/11/16 07/11/16 07/12/16 17:07 20:29 06:04 D-Dimer POC Glucometer 177 257 149 Active Medications Generic Name Dose Route Start Last Admin Trade Name Freq PRN Reason Stop Dose Admin Acetaminophen/Butalbital/Caffeine 1 tablet 07/10/16 11:40 07/11/16 14:14 Fioricet - PO 1 tablet Q6H PRN Administration FEVER OR PAIN Albuterol Sulfate 1 amp 07/05/16 15:24 07/10/16 22:23 Ventolin 0.5% - NEB 1 amp Q4H PRN Administration SHORT OF BREATH/WHEEZING Albuterol Sulfate 1 amp 07/10/16 17:53 07/12/16 07:00 Ventolin 0.083% Nebulizer Soln - NEB 1 amp Q6H PRN Administration SHORT OF BREATH/WHEEZING Alprazolam 1 mg 07/10/16 17:43 Xanax - PO Q12H PRN ANXIETY Benzocaine/Menthol 1 each 07/09/16 17:50 Cepacol Lozenge - MM PRN PRN SORE THROAT Budesonide/Formoterol Fumarate 2 puff 07/05/16 22:00 07/11/16 21:34 Symbicort 160/4.5mcg - IH 2 puff BID [facility] Administration Enoxaparin Sodium 40 mg 07/06/16 10:00 07/11/16 09:28 Lovenox - SQ 40 mg DAILY [facility] Administration Guaifenesin 10 ml 07/09/16 17:50 Robitussin - PO Q6H PRN COUGH Guaifenesin 1 tablet 07/10/16 17:36 07/11/16 21:30 Mucinex Dm - PO 07/12/16 21:59 1 tablet BID [facility] Administration Insulin Aspart 1 vial 07/05/16 16:30 07/12/16 06:06 Novolog Vial Sliding Scale - SQ Not Given ACHS [facility] Protocol Insulin Detemir 12 units 07/11/16 10:06 07/12/16 06:43 Levemir Vial SQ 12 units 0700,2200 [facility] Administration Methylprednisolone Sodium Succinate 60 mg 07/05/16 21:00 07/12/16 03:18 Solu-Medrol - IVPB 60 mg Q6H-IV [facility] Administration Montelukast Sodium 10 mg 07/06/16 22:00 07/11/16 21:31 Singulair - PO 10 mg HS [facility] Administration Elviteg/Crystal/Emtric/ 1 each 07/05/16 10:00 07/11/16 09:28 Tenofo Ala [Genvoya PO 1 each Tablet] DAILY [facility] Administration Pantoprazole Sodium 40 mg 07/13/16 10:00 Protonix - PO DAILY [facility] Pantoprazole Sodium 40 mg 07/10/16 17:41 07/11/16 21:31 Protonix - PO 07/12/16 17:40 40 mg BID [facility] Administration Tiotropium [place] 1 puff 07/05/16 16:30 07/11/16 09:31 Spiriva - IH 1 puff DAILY [facility] Administration ASSESSMENT/PLAN: 46 yo morbidly obese female with HIV and asthma admitted for acute exacerbation of asthma. Problem List - Problems (1) Asthma exacerbation Assessment/Plan: * Breathing slightly improved. Peak flow 300; continue to monitor peak flows. * Reduce Solumedrol 60mg IV QID to 40mg IV TID BGM and RISS BID * Duonebs QID and albuterol PRN * Supplemental O2 via 35% venti mask - maintain SpO2 >90% * Continue Symbicort and Singulair. * Physical therapy [facility]. (2) HIV (human immunodeficiency virus infection) Assessment/Plan: * Continue Elviteg/Crystal/Emtric/Tenofo Ala [Genvoya Tablet] 1 each PO DAILY (3) Obesity Assessment/Plan: * Calorie restricted diet. * Dietary consult appreciated * consider ADA diet because of steroid use. (4) Sleep apnea, obstructive Assessment/Plan: * BiPaP @ night (5) DVT prophylaxis Assessment/Plan: * Lovenox 40mg SQ bid Visit type - Emergency Visit Emergency Visit: Yes ED Registration Date: 07/06/16 Care time: The patient presented to the Emergency Department on the above date and was hospitalized for further evaluation of their emergent condition. - New Patient This patient is new to me today: Yes Date on this admission: 07/12/16 - Critical Care Critical Care patient: No
[2016-07-12] MEDS: ALBUTEROL SO4 0.5 % INH SOLN 2.5 MG/0.5 ML VIAL.NEB. NEB PRN (11:55)
[2016-07-12] MEDS ORDERED: FLUCONAZOLE 150 MG TABLET PO ONE (14:30)
[2016-07-12] MEDS ORDERED: FLUCONAZOLE 50 MG TABLET PO ONE (14:30)
--- NOTE | 2016-07-12 15:06 | PN ---
Teaching Attending Note Name of Resident: Eric Villatoro ATTENDING PHYSICIAN STATEMENT I saw and evaluated the patient. I reviewed the resident's note and discussed the case with the resident. I agree with the resident's findings and plan as documented. SUBJECTIVE:SLIGHT IMPROVEMENT OBJECTIVE:LESS WHEEZE/PEAK FLOW 300L/M ASSESSMENT AND PLAN: DE-ESCALATE STEROID DOSE CONTINUE ALL OTHER MEDS CHECK DAILY PEAK FLOW Mitali MASON MD
--- NOTE | 2016-07-12 15:38 | PN ---
Physical Exam: SUBJECTIVE: Patient seen and examined. She says her breathing is a little better , states the NC was drying her out, switched to VM 35%. Events: Peak flows 300 today OBJECTIVE: Vital Signs Period Temp Pulse Resp BP Sys/So Pulse Ox Last 24 Hr 97.4 F-98.0 F 62-80 20-22 130-152/62-81 97-98 PE Neuro: alert, awake, cn 2-12intact Pulm: diminished, however better appreciable, + VM CV: s1 s2 rrr no mrg Abd: obese, s nt nd + bs, elsy to abd skin folds : perineum erythema, tender Ext: warm, mild edema Laboratory Results - last 24 hr 07/11/16 07/11/16 07/12/16 17:07 20:29 06:04 POC Glucometer 177 257 149 07/12/16 11:48 POC Glucometer 248 Active Medications Generic Name Dose Route Start Last Admin Trade Name Freq PRN Reason Stop Dose Admin Acetaminophen/Butalbital/Caffeine 1 tablet 07/10/16 11:40 07/12/16 11:17 Fioricet - PO 1 tablet Q6H PRN Administration FEVER OR PAIN Albuterol Sulfate 1 amp 07/05/16 15:24 07/12/16 11:55 Ventolin 0.5% - NEB 1 amp Q4H PRN Administration SHORT OF BREATH/WHEEZING Albuterol Sulfate 1 amp 07/10/16 17:53 07/12/16 07:00 Ventolin 0.083% Nebulizer Soln - NEB 1 amp Q6H PRN Administration SHORT OF BREATH/WHEEZING Alprazolam 1 mg 07/10/16 17:43 Xanax - PO Q12H PRN ANXIETY Benzocaine/Menthol 1 each 07/09/16 17:50 Cepacol Lozenge - MM PRN PRN SORE THROAT Budesonide/Formoterol Fumarate 2 puff 07/05/16 22:00 07/12/16 11:18 Symbicort 160/4.5mcg - IH 2 puff BID [facility] Administration Enoxaparin Sodium 40 mg 07/06/16 10:00 07/12/16 11:16 Lovenox - SQ 40 mg DAILY [facility] Administration Guaifenesin 10 ml 07/09/16 17:50 Robitussin - PO Q6H PRN COUGH Guaifenesin 1 tablet 07/10/16 17:36 07/12/16 11:19 Mucinex Dm - PO 07/12/16 21:59 1 tablet BID [facility] Administration Insulin Aspart 1 vial 07/05/16 16:30 07/12/16 12:29 Novolog Vial Sliding Scale - SQ 4 units ACHS [facility] Administration Protocol Insulin Detemir 12 units 07/11/16 10:06 07/12/16 06:43 Levemir Vial SQ 12 units 0700,2200 [facility] Administration Methylprednisolone Sodium Succinate 40 mg 07/12/16 18:00 Solu-Medrol - IVPB Q8H-IV [facility] Montelukast Sodium 10 mg 07/06/16 22:00 07/11/16 21:31 Singulair - PO 10 mg HS [facility] Administration Elviteg/Crystal/Emtric/ 1 each 07/05/16 10:00 07/12/16 11:19 Tenofo Ala [Genvoya PO 1 each Tablet] DAILY [facility] Administration Nystatin 1 applic 07/12/16 14:00 Nystop Powder - TP BID [facility] Pantoprazole Sodium 40 mg 07/13/16 10:00 Protonix - PO DAILY [facility] Pantoprazole Sodium 40 mg 07/10/16 17:41 07/12/16 11:17 Protonix - PO 07/12/16 17:40 40 mg BID [facility] Administration Tiotropium [place] 1 puff 07/05/16 16:30 07/12/16 11:16 Spiriva - IH 1 puff DAILY [facility] Administration Imaging: CTAP: Mild left-sided colonic diverticulitis w/o evidence of acute diverticulitis. In comparison to a prior CT study of 05/15/14 there is apparent interval development of mildly increased mesenteric density centrally within the left paramedian aspect at the level of the lower abdomen, possibly inflammation vs subclinical finding. 2 mm non obstructing R renal calculus. Assessment: 46 year female HIV (on HAART therapy), anemia, asthma, and morbid obesity admitted with asthma exacerbation; wheezing is slightly improved but, still dyspneic on minimal exertion and requiring supplemental O2 via nasal cannula. Plan: 1. Acute asthma exacerbation - Taper Solu-Medrol 40mg q8h - Continue Symbicort and Spiriva - Continue Albuterol nebulizers q6h standing - Daily peak flows - BiPap HS - Pulm following 2. Vaginal elsy - Diflucan x1 - Nystain powder BID 3. Chest Pain - Likely GI from half-way steroids - D dimer negative - Daily protonix tomorrow 4. HIV - Cont HAART 5. Anemia - Hgb stable; receives outpatient iron infusions 6. Hyperglycemia - Levemir 12 units BID - ISS, BGM ACHS 7. Abdominal pain - CTAP above, follow up repeat in 3 months 8. Headache - hx of migraines - Fiorcet PRN 9. DVT prophylaxis - Lovenox 40mg sq daily Visit type - Emergency Visit Emergency Visit: Yes ED Registration Date: 07/06/16 Care time: The patient presented to the Emergency Department on the above date and was hospitalized for further evaluation of their emergent condition. - New Patient This patient is new to me today: No - Critical Care Critical Care patient: No
[2016-07-12] MEDS: NYSTATIN POWDER 100,000 UNITS/GM - 15 GM TOPICAL POWDER TP SCH ×2 (17:29→22:07)
[2016-07-12 20:36] LABS: URINE APPEARANCE SLCLOUDY; URINE BILIRUBIN NEGATIVE (NEGATIVE); URINE COLOR LTYELLOW; URINE GLUCOSE (UA) 3+ (NEGATIVE); URINE KETONE NEGATIVE (NEGATIVE); URINE NITRITE NEGATIVE (NEGATIVE); URINE PROTEIN NEGATIVE (NEGATIVE); URINE UROBILINOGEN NEGATIVE E.U./dl (0.2-1.0)
[2016-07-12 21:14] LABS: URINE BLOOD 2+ (NEGATIVE); URINE LEUK ESTERASE 1+ (NEGATIVE)
[2016-07-12 21:29] LABS: URINE BACTERIA RARE /hpf (NONE SEEN); URINE MUCUS RARE; URINE RBC 3 /hpf (0-3); URINE WBC 20 /hpf (3-5)
[2016-07-12] MEDS ORDERED: INSULIN DETEMIR 100 UNITS/ML MDV SQ ONE (21:57)
[2016-07-12] MEDS: MONTELUKAST NA 10 MG TABLET PO SCH (22:06)
[2016-07-13] MEDS: methylPREDNISolone NA SUCC 40 MG/1 ML VIAL IVPB SCH ×3 (02:25→17:54)
[2016-07-13] MEDS ORDERED: INSULIN (NOVOLOG) ASPART 100 UNITS/ML 10ML VIAL ONE ×2 (06:50→19:59)
[2016-07-13] MEDS ORDERED: INSULIN DETEMIR 100 UNITS/ML MDV SQ ONE (06:53)
[2016-07-13] MEDS: INSULIN DETEMIR 100 UNITS/ML MDV SQ SCH ×2 (06:55→21:14)
[2016-07-13] MEDS: INSULIN SLIDING SCALE (NOVOLOG) 1 VIAL SQ SCH ×4 (06:56→21:14)
[2016-07-13] MEDS: ACETAMINOPHEN/CAFFEINE/BUTALBITAL 1 TAB PO PRN ×2 (06:59→20:00)
[2016-07-13 07:45] LABS: MCH 23.7 pg (25.7-33.7); MCHC 31.4 g/dl (32.0-36.0); MEAN CELL VOLUME 75.5 fl (80-96); MEAN PLT VOLUME 7.7 fl (7.5-11.1); PLATELET COUNT 331 K/MM3 (134-434); RDW 17.1 % (11.6-15.6); WHITE BLOOD COUNT 17.9 K/mm3 (4.0-10.0)
[2016-07-13 08:12] LABS: ALBUMIN 2.9 g/dl (3.4-5.0); ANION GAP 11 (8-16); CALCIUM 7.7 mg/dL (8.5-10.1); CO2 29 mmol/L (21-32); GLUCOSE,RANDOM 184 mg/dL (74-106); SGOT/AST 12 U/L (15-37); SGPT/ALT 29 U/L (12-78)
[2016-07-13 08:15] LABS: ALK PHOS 49 U/L (45-117); BILIRUBIN,TOTAL 0.4 mg/dL (0.2-1.0); CREATININE 0.8 mg/dL (0.55-1.02)
[2016-07-13 10:03] LABS: METAMYELOCYTE 2 % (0-2)
[2016-07-13 10:05] LABS: OVALOCYTES 1+
[2016-07-13] MEDS: [UNRECOGNIZED DRUG - OTHER] PO SCH (10:16)
[2016-07-13] MEDS: BUDESONIDE/FORMETEROL FUMARATE 160/4.5 mcg INHALER IH SCH ×2 (10:16→21:15)
[2016-07-13] MEDS: TIOTROPIUM BROMIDE 18 MCG/INH (DEVICE W/ 30 CAPSULES) IH SCH (10:16)
[2016-07-13] MEDS: PANTOPRAZOLE 40 MG TABLET (FP) PO SCH (10:17)
[2016-07-13] MEDS: ENOXAPARIN NA (PORCINE) 40 MG/0.4 ML DISP.SYRIN SQ SCH (10:18)
[2016-07-13] MEDS: NYSTATIN POWDER 100,000 UNITS/GM - 15 GM TOPICAL POWDER TP SCH ×2 (10:18→21:16)
--- NOTE | 2016-07-13 11:18 | PN ---
Progress Note (short form) - Note Progress Note: PULMONARY Still with chest tightness, cough and wheezing. Peak flows today 250. Last Vital Signs Temp Pulse Resp BP Pulse Ox 98.7 F 63 20 147/85 96 07/13/16 06:41 07/13/16 06:41 07/13/16 06:41 07/13/16 06:41 07/12/16 21:00 Gen: NAD in chair Heart: RRR Lung: distant breath sounds, poor air movement Abd: soft, obese, nontender Ext: + edema CBC, BMP 07/13/16 06:00 07/13/16 06:00 Active Medications Acetaminophen/Butalbital/Caffeine (Fioricet -) 1 tablet PO Q6H PRN PRN Reason: FEVER OR PAIN Last Admin: 07/13/16 06:59 Dose: 1 tablet Albuterol Sulfate (Ventolin 0.5% -) 1 amp NEB Q4H PRN PRN Reason: SHORT OF BREATH/WHEEZING Last Admin: 07/12/16 11:55 Dose: 1 amp Albuterol Sulfate (Ventolin 0.083% Nebulizer Soln -) 1 amp NEB Q6H PRN PRN Reason: SHORT OF BREATH/WHEEZING Last Admin: 07/12/16 07:00 Dose: 1 amp Benzocaine/Menthol (Cepacol Lozenge -) 1 each MM PRN PRN PRN Reason: SORE THROAT Budesonide/Formoterol Fumarate (Symbicort 160/4.5mcg -) 2 puff IH BID [facility] Last Admin: 07/13/16 10:16 Dose: 2 puff Enoxaparin Sodium (Lovenox -) 40 mg SQ DAILY [facility] Last Admin: 07/13/16 10:18 Dose: 40 mg Guaifenesin (Robitussin -) 10 ml PO Q6H PRN PRN Reason: COUGH Insulin Aspart (Novolog Vial Sliding Scale -) 1 vial SQ ACHS KAREN PRN Reason: Protocol Last Admin: 07/13/16 06:56 Dose: Not Given Insulin Detemir (Levemir Vial) 12 units SQ 0700,2200 [facility] Last Admin: 07/13/16 06:55 Dose: 12 units Methylprednisolone Sodium Succinate (Solu-Medrol -) 40 mg IVPB Q8H-IV [facility] Last Admin: 07/13/16 10:18 Dose: 40 mg Montelukast Sodium (Singulair -) 10 mg PO HS [facility] Last Admin: 07/12/16 22:06 Dose: 10 mg Elviteg/Crystal/Emtric/Tenofo Ala [Genvoya Tablet] 1 each PO DAILY [facility] Last Admin: 07/13/16 10:16 Dose: 1 each Nystatin (Nystop Powder -) 1 applic TP BID [facility] Last Admin: 07/13/16 10:18 Dose: 1 applic Pantoprazole Sodium (Protonix -) 40 mg PO DAILY [facility] Last Admin: 07/13/16 10:17 Dose: 40 mg Tiotropium [place] (Spiriva -) 1 puff IH DAILY [facility] Last Admin: 07/13/16 10:16 Dose: 1 puff A/P Acute Asthma Exacerbation HIV Morbid Obesity PUMA - continue medrol at current dose - inhaled bronchodilators standing and PRN - O2 to keep SpO2 >90% - singulair - glucose control while on systemic steroids - daily peak flow monitoring - BiPAP at night - DVT prophylaxis
--- NOTE | 2016-07-13 13:55 | PN ---
Physical Exam: SUBJECTIVE: Patient seen and examined. She is oob to chair, per nurse she doesn' t ambulate much. She still c/o perineal tenderness and itching. OBJECTIVE: Vital Signs Period Temp Pulse Resp BP Sys/So Pulse Ox Last 24 Hr 97.1 F-98.7 F 60-78 18-20 119-148/54-85 96-98 PE Neuro: alert, awake, cn 2-12intact Pulm: mild wheezing, distant, + VM CV: s1 s2 rrr no mrg Abd: obese, s nt nd + bs, elsy to abd skin folds Ext: warm, mild edema Laboratory Results - last 24 hr CBCD WBC 17.9 K/mm3 (4.0-10.0) H 07/13/16 06:00 RBC 4.97 M/mm3 (3.60-5.2) 07/13/16 06:00 Hgb 11.8 GM/dL (10.7-15.3) 07/13/16 06:00 Hct 37.6 % (32.4-45.2) 07/13/16 06:00 MCV 75.5 fl (80-96) L 07/13/16 06:00 MCHC 31.4 g/dl (32.0-36.0) L 07/13/16 06:00 RDW 17.1 % (11.6-15.6) H 07/13/16 06:00 Plt Count 331 K/MM3 (134-434) 07/13/16 06:00 MPV 7.7 fl (7.5-11.1) 07/13/16 06:00 CMP Sodium 142 mmol/L (136-145) 07/13/16 06:00 Potassium 4.3 mmol/L (3.5-5.1) 07/13/16 06:00 Chloride 102 mmol/L (98-107) 07/13/16 06:00 Carbon Dioxide 29 mmol/L (21-32) 07/13/16 06:00 Anion Gap 11 (8-16) 07/13/16 06:00 BUN 17 mg/dL (7-18) 07/13/16 06:00 Creatinine 0.8 mg/dL (0.55-1.02) 07/13/16 06:00 Creat Clearance w eGFR > 60 (>60) 07/13/16 06:00 Calcium 7.7 mg/dL (8.5-10.1) L 07/13/16 06:00 Total Bilirubin 0.4 mg/dL (0.2-1.0) D 07/13/16 06:00 AST 12 U/L (15-37) L D 07/13/16 06:00 ALT 29 U/L (12-78) D 07/13/16 06:00 Alkaline Phosphatase 49 U/L (45-117) 07/13/16 06:00 Total Protein 6.0 g/dl (6.4-8.2) L 07/13/16 06:00 Albumin 2.9 g/dl (3.4-5.0) L 07/13/16 06:00 Active Medications Generic Name Dose Route Start Last Admin Trade Name Freq PRN Reason Stop Dose Admin Acetaminophen/Butalbital/Caffeine 1 tablet 07/10/16 11:40 07/13/16 06:59 Fioricet - PO 1 tablet Q6H PRN Administration FEVER OR PAIN Albuterol Sulfate 1 amp 07/05/16 15:24 07/12/16 11:55 Ventolin 0.5% - NEB 1 amp Q4H PRN Administration SHORT OF BREATH/WHEEZING Albuterol Sulfate 1 amp 07/10/16 17:53 07/12/16 07:00 Ventolin 0.083% Nebulizer Soln - NEB 1 amp Q6H PRN Administration SHORT OF BREATH/WHEEZING Benzocaine/Menthol 1 each 07/09/16 17:50 Cepacol Lozenge - MM PRN PRN SORE THROAT Budesonide/Formoterol Fumarate 2 puff 07/05/16 22:00 07/13/16 10:16 Symbicort 160/4.5mcg - IH 2 puff BID KAREN Administration Enoxaparin Sodium 40 mg 07/06/16 10:00 07/13/16 10:18 Lovenox - SQ 40 mg DAILY KAREN Administration Guaifenesin 10 ml 07/09/16 17:50 Robitussin - PO Q6H PRN COUGH Insulin Aspart 1 vial 07/05/16 16:30 07/13/16 11:27 Novolog Vial Sliding Scale - SQ Not Given ACHS [facility] Protocol Insulin Detemir 12 units 07/11/16 10:06 07/13/16 06:55 Levemir Vial SQ 12 units 0700,2200 KAREN Administration Methylprednisolone Sodium Succinate 40 mg 07/12/16 18:00 07/13/16 10:18 Solu-Medrol - IVPB 40 mg Q8H-IV KAREN Administration Montelukast Sodium 10 mg 07/06/16 22:00 07/12/16 22:06 Singulair - PO 10 mg HS KAREN Administration Elviteg/Crystal/Emtric/ 1 each 07/05/16 10:00 07/13/16 10:16 Tenofo Ala [Genvoya PO 1 each Tablet] DAILY KAREN Administration Nystatin 1 applic 07/12/16 14:00 07/13/16 10:18 Nystop Powder - TP 1 applic BID KAREN Administration Pantoprazole Sodium 40 mg 07/13/16 10:00 07/13/16 10:17 Protonix - PO 40 mg DAILY KAREN Administration Tiotropium [place] 1 puff 07/05/16 16:30 07/13/16 10:16 Spiriva - IH 1 puff DAILY KAREN Administration Imaging: CTAP: Mild left-sided colonic diverticulitis w/o evidence of acute diverticulitis. In comparison to a prior CT study of 05/15/14 there is apparent interval development of mildly increased mesenteric density centrally within the left paramedian aspect at the level of the lower abdomen, possibly inflammation vs subclinical finding. 2 mm non obstructing R renal calculus. Assessment: 46 year female HIV (on HAART therapy), anemia, asthma, and morbid obesity admitted with asthma exacerbation; wheezing is slightly improved but, still dyspneic on minimal exertion and requiring supplemental O2 via nasal cannula. Plan: 1. Acute asthma exacerbation - Solu-Medrol 40mg q8h - Continue Symbicort and Spiriva - Continue Albuterol nebulizers q6h standing - Daily peak flows - BiPap HS - Pulm following 2. Vaginal elsy - Nystain powder BID - Received diflucan x1 3. UA - Appears as asymptomatic pyuria - Will obtain urine cx d/t immunocompromised status 4. Chest Pain - Likely GI source - Daily protonix tomorrow 5. HIV - Will ask recent CD4 count - Cont HAART 6. Anemia - Hgb stable; receives outpatient iron infusions 7. Hyperglycemia - Levemir 12 units BID - ISS, BGM ACHS 8. Abdominal pain - CTAP above, follow up repeat in 3 months 9. Headache - hx of migraines - Fiorcet PRN 10. DVT prophylaxis - Lovenox 40mg sq daily Visit type - Emergency Visit Emergency Visit: Yes ED Registration Date: 07/06/16 Care time: The patient presented to the Emergency Department on the above date and was hospitalized for further evaluation of their emergent condition. - New Patient This patient is new to me today: No - Critical Care Critical Care patient: No
[2016-07-13] MEDS: MONTELUKAST NA 10 MG TABLET PO SCH (21:14)
[2016-07-13] MEDS: ALBUTEROL SO4 0.083% IH SOL 2.5 MG/3 ML VIAL.NEB. NEB PRN (22:41)
[2016-07-14] MEDS: methylPREDNISolone NA SUCC 40 MG/1 ML VIAL IVPB SCH ×2 (01:29→09:32)
[2016-07-14] MEDS: INSULIN DETEMIR 100 UNITS/ML MDV SQ SCH ×2 (06:24→22:09)
[2016-07-14] MEDS: INSULIN SLIDING SCALE (NOVOLOG) 1 VIAL SQ SCH ×4 (06:24→22:10)
[2016-07-14] MEDS: ACETAMINOPHEN/CAFFEINE/BUTALBITAL 1 TAB PO PRN (06:26)
[2016-07-14] MEDS: BUDESONIDE/FORMETEROL FUMARATE 160/4.5 mcg INHALER IH SCH ×2 (09:31→22:09)
[2016-07-14] MEDS: [UNRECOGNIZED DRUG - OTHER] PO SCH (09:32)
[2016-07-14] MEDS: PANTOPRAZOLE 40 MG TABLET (FP) PO SCH (09:33)
[2016-07-14] MEDS: ENOXAPARIN NA (PORCINE) 40 MG/0.4 ML DISP.SYRIN SQ SCH (09:33)
[2016-07-14] MEDS: NYSTATIN POWDER 100,000 UNITS/GM - 15 GM TOPICAL POWDER TP SCH ×2 (09:33→22:09)
[2016-07-14] MEDS: TIOTROPIUM BROMIDE 18 MCG/INH (DEVICE W/ 30 CAPSULES) IH SCH (09:34)
[2016-07-14] MEDS: ALBUTEROL SO4 0.5 % INH SOLN 2.5 MG/0.5 ML VIAL.NEB. NEB PRN (10:35)
--- NOTE | 2016-07-14 11:14 | PN ---
Progress Note (short form) - Note Progress Note: PULMONARY AWAKE/ALERT/OOB TO CHAIR PEAK FLOW 250-300L/M VSS/AFEBRILE ANICTERIC MINIMAL B/L EXP WHEEZE S1S2 BS+ OBESE LESS EDEMA B/L LABS/MEDS/NOTES/IMAGING REVIEWED (1) Asthma exacerbation Code(s): J45.901 - UNSPECIFIED ASTHMA WITH (ACUTE) EXACERBATION Qualifiers: Asthma severity: moderate persistent Qualified Code(s): J45.41 - Moderate persistent asthma with (acute) exacerbation (2) Anemia Code(s): D64.9 - ANEMIA, UNSPECIFIED (3) HIV (human immunodeficiency virus infection) Code(s): Z21 - ASYMPTOMATIC HUMAN IMMUNODEFICIENCY VIRUS INFECTION STATUS (4) Obesity Code(s): E66.9 - OBESITY, UNSPECIFIED (5) Sleep apnea, obstructive Code(s): G47.33 - OBSTRUCTIVE SLEEP APNEA (ADULT) (PEDIATRIC) PLAN: De-escalate steroids Symbicort BID Spirivia daily Albuterol nebs prn Follow BGM Bedside peak flow monitoring PAP QHS and PRN O2 as needed Kristyn MASON MD
--- NOTE | 2016-07-14 11:17 | PN ---
Physical Exam: SUBJECTIVE: Patient seen and examined at bedside. No new complaints. No overnight events. She states breathing is "little better". Continues to have dull CP. Denies SEGURA, palpitations, N/V. OBJECTIVE: Vital Signs Period Temp Pulse Resp BP Sys/So Pulse Ox Last 24 Hr 97.8 F-98.3 F 61-78 20-20 124-148/61-83 97-98 GENERAL:AAO x3, NAD HEAD:NC/AT. EYES: PERRL, sclera anicteric, conjunctiva clear. No ptosis. ENT: Dry mucous membranes. NECK:supple. No JVD LUNGS: On 35% venti mask,Diminished breath sounds bilat, mild apical wheezes, no crackles, no accessory muscle use. HEART:RRR, S1, S2 without murmur, rub or gallop. ABDOMEN: Soft, Obese, nontender, nondistended, normoactive bowel sounds EXTREMITIES: 2+ pulses, warm, well-perfused, 2+ LE edema. NEUROLOGICAL: alert and oriented. PSYCH: anxious. SKIN: Warm, dry, normal turgor, no rashes or lesions noted Laboratory Results - last 24 hr 07/13/16 07/13/16 07/13/16 11:39 17:21 20:14 POC Glucometer 124 130 196 07/14/16 06:22 POC Glucometer 172 Active Medications Generic Name Dose Route Start Last Admin Trade Name Freq PRN Reason Stop Dose Admin Acetaminophen/Butalbital/Caffeine 1 tablet 07/10/16 11:40 07/14/16 06:26 Fioricet - PO 1 tablet Q6H PRN Administration FEVER OR PAIN Albuterol Sulfate 1 amp 07/05/16 15:24 07/12/16 11:55 Ventolin 0.5% - NEB 1 amp Q4H PRN Administration SHORT OF BREATH/WHEEZING Albuterol Sulfate 1 amp 07/10/16 17:53 07/13/16 22:41 Ventolin 0.083% Nebulizer Soln - NEB 1 amp Q6H PRN Administration SHORT OF BREATH/WHEEZING Benzocaine/Menthol 1 each 07/09/16 17:50 Cepacol Lozenge - MM PRN PRN SORE THROAT Budesonide/Formoterol Fumarate 2 puff 07/05/16 22:00 07/14/16 09:31 Symbicort 160/4.5mcg - IH 2 puff BID KAREN Administration Enoxaparin Sodium 40 mg 07/06/16 10:00 07/14/16 09:33 Lovenox - SQ 40 mg DAILY KAREN Administration Guaifenesin 10 ml 07/09/16 17:50 Robitussin - PO Q6H PRN COUGH Insulin Aspart 1 vial 07/05/16 16:30 07/14/16 06:24 Novolog Vial Sliding Scale - SQ 2 units ACHS KAREN Administration Protocol Insulin Detemir 12 units 07/11/16 10:06 07/14/16 06:24 Levemir Vial SQ 12 units 0700,2200 KAREN Administration Methylprednisolone Sodium Succinate 40 mg 07/12/16 18:00 07/14/16 09:32 Solu-Medrol - IVPB 40 mg Q8H-IV KAREN Administration Montelukast Sodium 10 mg 07/06/16 22:00 07/13/16 21:14 Singulair - PO 10 mg HS KAREN Administration Elviteg/Crystal/Emtric/ 1 each 07/05/16 10:00 07/14/16 09:32 Tenofo Ala [Genvoya PO 1 each Tablet] DAILY KAREN Administration Nystatin 1 applic 07/12/16 14:00 07/14/16 09:33 Nystop Powder - TP 1 applic BID KAREN Administration Pantoprazole Sodium 40 mg 07/13/16 10:00 07/14/16 09:33 Protonix - PO 40 mg DAILY KAREN Administration Tiotropium [place] 1 puff 07/05/16 16:30 07/14/16 09:34 Spiriva - IH 1 puff DAILY KAREN Administration ASSESSMENT/PLAN: 46 yo F with sig. pmhx of Ashtma, obesity, and HIV admitted for acute exacerbation of asthma. Problem List - Problems (1) Asthma exacerbation Assessment/Plan: * Breathing slightly improved. Peak flow 300; continue to monitor peak flows. * Continue Solumedrol 40mg IV TID BGM and RISS BID * Duonebs QID and albuterol PRN * Supplemental O2 via 35% venti mask - maintain SpO2 >90% * Continue Symbicort and Singulair. * Physical therapy [facility]. (2) HIV (human immunodeficiency virus infection) Assessment/Plan: * Continue Elviteg/Crystal/Emtric/Tenofo Ala [Genvoya Tablet] 1 each PO DAILY * CD 4 count pending. (3) Obesity Assessment/Plan: * Calorie restricted diet. * Dietary consult appreciated * consider ADA diet because of steroid use. (4) Sleep apnea, obstructive Assessment/Plan: * BiPaP @ night (5) DVT prophylaxis Assessment/Plan: * Lovenox 40mg SQ bid Visit type - Emergency Visit Emergency Visit: Yes ED Registration Date: 07/06/16 Care time: The patient presented to the Emergency Department on the above date and was hospitalized for further evaluation of their emergent condition. - New Patient This patient is new to me today: No - Critical Care Critical Care patient: No
[2016-07-14] MEDS: ALBUTEROL SO4 0.083% IH SOL 2.5 MG/3 ML VIAL.NEB. NEB PRN ×2 (13:20→16:20)
[2016-07-14] MEDS: predniSONE 20 MG TABLET (UD) PO SCH (13:40)
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
[2016-07-14] MEDS ORDERED: INSULIN (NOVOLOG) ASPART 100 UNITS/ML 10ML VIAL ONE (17:03)
[2016-07-14] MEDS: MONTELUKAST NA 10 MG TABLET PO SCH (22:09)
[2016-07-15] MEDS: INSULIN SLIDING SCALE (NOVOLOG) 1 VIAL SQ SCH ×4 (06:09→22:48)
[2016-07-15] MEDS: INSULIN DETEMIR 100 UNITS/ML MDV SQ SCH ×2 (06:10→22:48)
[2016-07-15 07:33] LABS: BASOPHIL 0.1 % (0-2.0); MCH 23.7 pg (25.7-33.7); MCHC 31.6 g/dl (32.0-36.0); MEAN CELL VOLUME 74.9 fl (80-96); MEAN PLT VOLUME 7.9 fl (7.5-11.1); NEUTROPHILS 83.7 % (42.8-82.8); PLATELET COUNT 302 K/MM3 (134-434); RDW 16.9 % (11.6-15.6); WHITE BLOOD COUNT 19.9 K/mm3 (4.0-10.0)
[2016-07-15 07:49] LABS: ANION GAP 10 (8-16); BILIRUBIN,TOTAL 0.3 mg/dL (0.2-1.0); CALCIUM 7.9 mg/dL (8.5-10.1); CO2 26 mmol/L (21-32); CREATININE 0.8 mg/dL (0.55-1.02); GLUCOSE,RANDOM 142 mg/dL (74-106); SGOT/AST 9 U/L (15-37); SGPT/ALT 36 U/L (12-78)
[2016-07-15 07:51] LABS: ALK PHOS 46 U/L (45-117)
[2016-07-15] MEDS: predniSONE 20 MG TABLET (UD) PO SCH (10:49)
[2016-07-15] MEDS: ENOXAPARIN NA (PORCINE) 40 MG/0.4 ML DISP.SYRIN SQ SCH (10:49)
[2016-07-15] MEDS: PANTOPRAZOLE 40 MG TABLET (FP) PO SCH (10:49)
[2016-07-15] MEDS: [UNRECOGNIZED DRUG - OTHER] PO SCH (10:49)
[2016-07-15] MEDS: BUDESONIDE/FORMETEROL FUMARATE 160/4.5 mcg INHALER IH SCH ×2 (10:50→22:45)
[2016-07-15] MEDS: NYSTATIN POWDER 100,000 UNITS/GM - 15 GM TOPICAL POWDER TP SCH ×2 (10:50→22:47)
[2016-07-15] MEDS: TIOTROPIUM BROMIDE 18 MCG/INH (DEVICE W/ 30 CAPSULES) IH SCH (10:50)
--- NOTE | 2016-07-15 13:18 | PN ---
Progress Note (short form) - Note Progress Note: PULMONARY Breathing continues to slowly improve. Peak flow 300. c/o stomach discomfort after eating. Last Vital Signs Temp Pulse Resp BP Pulse Ox 97.6 F 64 22 115/71 99 07/15/16 05:42 07/15/16 05:42 07/15/16 05:42 07/15/16 05:42 07/15/16 02:38 Gen: NAD in chair Heart: RRR Lung: distant breath sounds, poor air movement Abd: soft, obese, nontender Ext: + edema CBC, BMP 07/15/16 06:00 07/15/16 06:00 Active Medications Acetaminophen/Butalbital/Caffeine (Fioricet -) 1 tablet PO Q6H PRN PRN Reason: FEVER OR PAIN Last Admin: 07/14/16 06:26 Dose: 1 tablet Albuterol Sulfate (Ventolin 0.5% -) 1 amp NEB Q4H PRN PRN Reason: SHORT OF BREATH/WHEEZING Last Admin: 07/14/16 10:35 Dose: 1 amp Albuterol Sulfate (Ventolin 0.083% Nebulizer Soln -) 1 amp NEB Q6H PRN PRN Reason: SHORT OF BREATH/WHEEZING Last Admin: 07/14/16 16:20 Dose: 1 amp Benzocaine/Menthol (Cepacol Lozenge -) 1 each MM PRN PRN PRN Reason: SORE THROAT Budesonide/Formoterol Fumarate (Symbicort 160/4.5mcg -) 2 puff IH BID [facility] Last Admin: 07/15/16 10:50 Dose: 2 puff Enoxaparin Sodium (Lovenox -) 40 mg SQ DAILY [facility] Last Admin: 07/15/16 10:49 Dose: 40 mg Guaifenesin (Robitussin -) 10 ml PO Q6H PRN PRN Reason: COUGH Insulin Aspart (Novolog Vial Sliding Scale -) 1 vial SQ ACHS [facility] PRN Reason: Protocol Last Admin: 07/15/16 12:18 Dose: Not Given Insulin Detemir (Levemir Vial) 12 units SQ 0700,2200 [facility] Last Admin: 07/15/16 06:10 Dose: 12 units Montelukast Sodium (Singulair -) 10 mg PO HS [facility] Last Admin: 07/14/16 22:09 Dose: 10 mg Elviteg/Crystal/Emtric/Tenofo Ala [Genvoya Tablet] 1 each PO DAILY [facility] Last Admin: 07/15/16 10:49 Dose: 1 each Nystatin (Nystop Powder -) 1 applic TP BID [facility] Last Admin: 07/15/16 10:50 Dose: 1 applic Pantoprazole Sodium (Protonix -) 40 mg PO DAILY [facility] Last Admin: 07/15/16 10:49 Dose: 40 mg Prednisone (Deltasone -) 40 mg PO DAILY [facility] Last Admin: 07/15/16 10:49 Dose: 40 mg Tiotropium [place] (Spiriva -) 1 puff IH DAILY [facility] Last Admin: 07/15/16 10:50 Dose: 1 puff A/P Acute Asthma Exacerbation HIV Morbid Obesity PUMA - prednisone taper - inhaled bronchodilators standing and PRN - O2 to keep SpO2 >90% - singulair - glucose control while on systemic steroids - daily peak flow monitoring - BiPAP at night - DVT prophylaxis
[2016-07-15] MEDS: MAG HYDROX/AL HYDROX/SIMETH 30 ML UNIT-DOSE CUP PO PRN (16:05)
[2016-07-15] MEDS: ACETAMINOPHEN/CAFFEINE/BUTALBITAL 1 TAB PO PRN (20:35)
[2016-07-15] MEDS ORDERED: INSULIN (NOVOLOG) ASPART 100 UNITS/ML 10ML VIAL ONE (21:56)
[2016-07-15] MEDS: MONTELUKAST NA 10 MG TABLET PO SCH (22:43)
--- NOTE | 2016-07-15 23:58 | PN ---
Physical Exam: SUBJECTIVE: Patient seen and examined oob to chair. Breathing continues to improve. Irritation to perineal area improved. Denies dysuria, hematuria, frequency, urgency. OBJECTIVE: Vital Signs Period Temp Pulse Resp BP Sys/So Pulse Ox Last 24 Hr 97.5 F-98 F 62-70 18-22 115-153/71-88 97-99 GENERAL: The patient is awake, alert, and fully oriented, in no acute distress. HEAD: Normal with no signs of trauma. EYES: PERRL, extraocular movements intact, sclera anicteric, conjunctiva clear. No ptosis. LUNGS: Breath sounds equal, clear to auscultation bilaterally, no wheezes, no crackles, no accessory muscle use. HEART: Regular rate and rhythm, S1, S2 without murmur, rub or gallop. ABDOMEN: Obese; soft, nontender, nondistended, normoactive bowel sounds, no guarding, no rebound EXTREMITIES: 2+ pulses, warm, well-perfused, no edema. NEUROLOGICAL: Cranial nerves II through XII grossly intact. Normal speech, gait not observed. Laboratory Results - last 24 hr 07/15/16 07/15/16 07/15/16 06:00 06:00 06:09 WBC 19.9 H RBC 5.05 Hgb 12.0 Hct 37.9 MCV 74.9 L MCHC 31.6 L RDW 16.9 H Plt Count 302 MPV 7.9 Neutrophils % 83.7 H Lymphocytes % 11.1 D Monocytes % 5.1 Eosinophils % 0.0 Basophils % 0.1 Sodium 140 Potassium 4.4 Chloride 104 Carbon Dioxide 26 Anion Gap 10 BUN 20 H Creatinine 0.8 Creat Clearance w eGFR > 60 POC Glucometer 139 Random Glucose 142 H D Calcium 7.9 L Total Bilirubin 0.3 D AST 9 L D ALT 36 D Alkaline Phosphatase 46 Total Protein 6.0 L Albumin 3.0 L 07/15/16 07/15/16 07/15/16 12:17 17:24 22:42 WBC RBC Hgb Hct MCV MCHC RDW Plt Count MPV Neutrophils % Lymphocytes % Monocytes % Eosinophils % Basophils % Sodium Potassium Chloride Carbon Dioxide Anion Gap BUN Creatinine Creat Clearance w eGFR POC Glucometer 106 166 141 Random Glucose Calcium Total Bilirubin AST ALT Alkaline Phosphatase Total Protein Albumin Active Medications Generic Name Dose Route Start Last Admin Trade Name Freq PRN Reason Stop Dose Admin Acetaminophen/Butalbital/Caffeine 1 tablet 07/10/16 11:40 07/15/16 20:35 Fioricet - PO 1 tablet Q6H PRN Administration FEVER OR PAIN Al Hydroxide/Mg Hydroxide 30 ml 07/15/16 13:18 07/15/16 16:05 Mylanta Oral Suspension - PO 30 ml Q6H PRN Administration DYSPEPSIA Albuterol Sulfate 1 amp 07/05/16 15:24 07/14/16 10:35 Ventolin 0.5% - NEB 1 amp Q4H PRN Administration SHORT OF BREATH/WHEEZING Albuterol Sulfate 1 amp 07/10/16 17:53 07/14/16 16:20 Ventolin 0.083% Nebulizer Soln - NEB 1 amp Q6H PRN Administration SHORT OF BREATH/WHEEZING Benzocaine/Menthol 1 each 07/09/16 17:50 Cepacol Lozenge - MM PRN PRN SORE THROAT Budesonide/Formoterol Fumarate 2 puff 07/05/16 22:00 07/15/16 22:45 Symbicort 160/4.5mcg - IH 2 puff BID KAREN Administration Enoxaparin Sodium 40 mg 07/06/16 10:00 07/15/16 10:49 Lovenox - SQ 40 mg DAILY KAREN Administration Guaifenesin 10 ml 07/09/16 17:50 Robitussin - PO Q6H PRN COUGH Insulin Aspart 1 vial 07/05/16 16:30 07/15/16 22:48 Novolog Vial Sliding Scale - SQ Not Given ACHS KAREN Protocol Insulin Detemir 12 units 07/11/16 10:06 07/15/16 22:48 Levemir Vial SQ 12 units 0700,2200 KAREN Administration Montelukast Sodium 10 mg 07/06/16 22:00 07/15/16 22:43 Singulair - PO 10 mg HS KAREN Administration Elviteg/Crystal/Emtric/ 1 each 07/05/16 10:00 07/15/16 10:49 Tenofo Ala [Genvoya PO 1 each Tablet] DAILY KAREN Administration Nystatin 1 applic 07/12/16 14:00 07/15/16 22:47 Nystop Powder - TP 1 applic BID KAREN Administration Pantoprazole Sodium 40 mg 07/13/16 10:00 07/15/16 10:49 Protonix - PO 40 mg DAILY KAREN Administration Prednisone 40 mg 07/14/16 11:30 07/15/16 10:49 Deltasone - PO 40 mg DAILY KAREN Administration Tiotropium [place] 1 puff 07/05/16 16:30 07/15/16 10:50 Spiriva - IH 1 puff DAILY KAREN Administration ASSESSMENT & PLAN 46 year-old female with a PMH of asthma, anemia, HIV (on HAART therapy), and morbid obesity admitted for asthma exacerbation. Plan: 1. Acute asthma exacerbation - Transition to prednisone 40mg daily - Symbicort BID - Continue Spiriva, Singulair daily - Continue Albuterol nebulizers q6h standing - Daily peak flows - BiPap HS - Pulm following 2. Vaginal elsy - Nystain powder BID - Received diflucan x1 3. UA - Appears as asymptomatic pyuria - Will obtain urine cx d/t immunocompromised status, however most recent cd4 759 4. HIV - Most recent CD4 09/2105 759 - CD4 level ordered - Cont HAART 5. Chest Pain - Likely GI source - Cardiac w/u negative - Daily protonix tomorrow 6. Anemia - Hgb stable; receives outpatient iron infusions 7. Hyperglycemia - Levemir 12 units BID - ISS, BGM ACHS 8. Abdominal pain - CTAP above, follow up repeat in 3 months 9. Headache - hx of migraines - Fiorcet PRN 10. DVT prophylaxis - Lovenox 40mg sq daily Visit type - Emergency Visit Emergency Visit: Yes ED Registration Date: 07/06/16 Care time: The patient presented to the Emergency Department on the above date and was hospitalized for further evaluation of their emergent condition. - New Patient This patient is new to me today: Yes Date on this admission: 07/20/16 - Critical Care Critical Care patient: No
[2016-07-16] MEDS: ALBUTEROL SO4 0.083% IH SOL 2.5 MG/3 ML VIAL.NEB. NEB PRN (04:59)
[2016-07-16] MEDS ORDERED: ACETAMINOPHEN 325 MG TABLET (FP) PO ONE ×2 (05:00→22:52)
--- NOTE | 2016-07-16 05:10 | HOSP ---
Subjective - Review of Symptoms Events since last encounter: Paged at approximately 4:45 AM w/ pt complaining of R arm pain from fingers/ hand to all of forearm. She had her IV line removed from R hand yesterday due to pain and says that the pain is getting worse. Currently rates it as a 6-7/ 10 and says that she is having difficulty moving her hand and fingers due to pain and says it feels as though "she fell on her arm" although she did not fall. Currently receiving nebulizer treatment at the time of visit. Pt's R arm tender to touch from elbow down to fingers. Pt expressed she is ok with trying tylenol for now and will be given one dose of tylenol 650 mg po. No IV line is available at this time. Physical Examination Vital Signs: Vital Signs Temperature 98 F 07/15/16 18:00 Pulse Rate 70 07/15/16 22:50 Respiratory Rate 20 07/15/16 22:50 Blood Pressure 153/88 07/15/16 22:50 O2 Sat by Pulse Oximetry (%) 97 07/15/16 10:00 Labs: CBC, BMP 07/15/16 06:00 07/15/16 06:00 Visit type - Emergency Visit Emergency Visit: Yes ED Registration Date: 07/06/16 Care time: The patient presented to the Emergency Department on the above date and was hospitalized for further evaluation of their emergent condition. - New Patient This patient is new to me today: Yes Date on this admission: 07/16/16 - Critical Care Critical Care patient: No
[2016-07-16] MEDS: INSULIN SLIDING SCALE (NOVOLOG) 1 VIAL SQ SCH ×4 (06:25→21:44)
[2016-07-16] MEDS: INSULIN DETEMIR 100 UNITS/ML MDV SQ SCH ×2 (06:27→21:44)
[2016-07-16] MEDS: predniSONE 20 MG TABLET (UD) PO SCH (10:38)
[2016-07-16] MEDS: NYSTATIN POWDER 100,000 UNITS/GM - 15 GM TOPICAL POWDER TP SCH ×2 (10:38→21:43)
[2016-07-16] MEDS: PANTOPRAZOLE 40 MG TABLET (FP) PO SCH (10:38)
[2016-07-16] MEDS: [UNRECOGNIZED DRUG - OTHER] PO SCH (10:39)
[2016-07-16] MEDS: BUDESONIDE/FORMETEROL FUMARATE 160/4.5 mcg INHALER IH SCH ×2 (10:39→21:43)
[2016-07-16] MEDS: ENOXAPARIN NA (PORCINE) 40 MG/0.4 ML DISP.SYRIN SQ SCH (10:39)
[2016-07-16] MEDS ORDERED: diphenhydrAMINE HCL 25 MG CAPSULE (FP) PO PRN (11:30)
--- NOTE | 2016-07-16 11:30 | PN ---
Progress Note (short form) - Note Progress Note: PULMONARY Breathing continues to slowly improve. Peak flow 250. c/o right arm swelling, some erythema where IV site was. No fevers or chills. c/o generalized itching. Last Vital Signs Temp Pulse Resp BP Pulse Ox 98.0 F 70 21 130/66 97 07/16/16 10:31 07/16/16 10:31 07/16/16 10:31 07/16/16 10:31 07/15/16 10:00 Gen: NAD in chair Heart: RRR Lung: distant breath sounds, poor air movement Abd: soft, obese, nontender Ext: + edema CBC, BMP 07/15/16 06:00 07/15/16 06:00 Active Medications Acetaminophen/Butalbital/Caffeine (Fioricet -) 1 tablet PO Q6H PRN PRN Reason: FEVER OR PAIN Last Admin: 07/15/16 20:35 Dose: 1 tablet Al Hydroxide/Mg Hydroxide (Mylanta Oral Suspension -) 30 ml PO Q6H PRN PRN Reason: DYSPEPSIA Last Admin: 07/15/16 16:05 Dose: 30 ml Albuterol Sulfate (Ventolin 0.5% -) 1 amp NEB Q4H PRN PRN Reason: SHORT OF BREATH/WHEEZING Last Admin: 07/14/16 10:35 Dose: 1 amp Albuterol Sulfate (Ventolin 0.083% Nebulizer Soln -) 1 amp NEB Q6H PRN PRN Reason: SHORT OF BREATH/WHEEZING Last Admin: 07/16/16 04:59 Dose: 1 amp Benzocaine/Menthol (Cepacol Lozenge -) 1 each MM PRN PRN PRN Reason: SORE THROAT Budesonide/Formoterol Fumarate (Symbicort 160/4.5mcg -) 2 puff IH BID [facility] Last Admin: 07/16/16 10:39 Dose: 2 puff Enoxaparin Sodium (Lovenox -) 40 mg SQ DAILY [facility] Last Admin: 07/16/16 10:39 Dose: 40 mg Guaifenesin (Robitussin -) 10 ml PO Q6H PRN PRN Reason: COUGH Insulin Aspart (Novolog Vial Sliding Scale -) 1 vial SQ ACHS [facility] PRN Reason: Protocol Last Admin: 07/16/16 06:25 Dose: Not Given Insulin Detemir (Levemir Vial) 12 units SQ 0700,2200 [facility] Last Admin: 07/16/16 06:27 Dose: 12 units Montelukast Sodium (Singulair -) 10 mg PO HS [facility] Last Admin: 07/15/16 22:43 Dose: 10 mg Elviteg/Crystal/Emtric/Tenofo Ala [Genvoya Tablet] 1 each PO DAILY [facility] Last Admin: 07/16/16 10:39 Dose: 1 each Nystatin (Nystop Powder -) 1 applic TP BID [facility] Last Admin: 07/16/16 10:38 Dose: 1 applic Pantoprazole Sodium (Protonix -) 40 mg PO DAILY [facility] Last Admin: 07/16/16 10:38 Dose: 40 mg Prednisone (Deltasone -) 40 mg PO DAILY [facility] Last Admin: 07/16/16 10:38 Dose: 40 mg Tiotropium [place] (Spiriva -) 1 puff IH DAILY [facility] Last Admin: 07/15/16 10:50 Dose: 1 puff A/P Acute Asthma Exacerbation HIV Morbid Obesity PUMA - prednisone taper - inhaled bronchodilators standing and PRN - will add on benadryl PO - O2 to keep SpO2 >90% - singulair - glucose control while on systemic steroids - daily peak flow monitoring - BiPAP at night - DVT prophylaxis
[2016-07-16] MEDS: ALBUTEROL SO4 0.5 % INH SOLN 2.5 MG/0.5 ML VIAL.NEB. NEB PRN (11:50)
--- NOTE | 2016-07-16 15:25 | PN ---
Physical Exam: SUBJECTIVE: Patient seen and examined. Complaining of pain to right hand where peripheral IV was d/c'd. OBJECTIVE: Vital Signs Period Temp Pulse Resp BP Sys/So Pulse Ox Last 24 Hr 97.6 F-98.2 F 67-78 18-21 95-153/62-88 98 GENERAL: The patient is awake, alert, and fully oriented, in no acute distress. HEAD: Normal with no signs of trauma. EYES: PERRL, extraocular movements intact, sclera anicteric, conjunctiva clear. No ptosis. LUNGS: Breath sounds equal, clear to auscultation bilaterally, no wheezes, no crackles, no accessory muscle use. HEART: Regular rate and rhythm, S1, S2 without murmur, rub or gallop. ABDOMEN: Obese; soft, nontender, nondistended, normoactive bowel sounds, no guarding, no rebound RUE: no erythema, no swelling, +tenderness from dorsal surface of hand to antecubital space NEUROLOGICAL: Cranial nerves II through XII grossly intact. Normal speech, gait not observed. Laboratory Results - last 24 hr 07/15/16 07/15/16 07/16/16 17:24 22:42 05:34 POC Glucometer 166 141 99 07/16/16 11:47 POC Glucometer 87 Active Medications Generic Name Dose Route Start Last Admin Trade Name Freq PRN Reason Stop Dose Admin Acetaminophen/Butalbital/Caffeine 1 tablet 07/10/16 11:40 07/15/16 20:35 Fioricet - PO 1 tablet Q6H PRN Administration FEVER OR PAIN Al Hydroxide/Mg Hydroxide 30 ml 07/15/16 13:18 07/15/16 16:05 Mylanta Oral Suspension - PO 30 ml Q6H PRN Administration DYSPEPSIA Albuterol Sulfate 1 amp 07/05/16 15:24 07/16/16 11:50 Ventolin 0.5% - NEB 1 amp Q4H PRN Administration SHORT OF BREATH/WHEEZING Albuterol Sulfate 1 amp 07/10/16 17:53 07/16/16 04:59 Ventolin 0.083% Nebulizer Soln - NEB 1 amp Q6H PRN Administration SHORT OF BREATH/WHEEZING Benzocaine/Menthol 1 each 07/09/16 17:50 Cepacol Lozenge - MM PRN PRN SORE THROAT Budesonide/Formoterol Fumarate 2 puff 07/05/16 22:00 07/16/16 10:39 Symbicort 160/4.5mcg - IH 2 puff BID KAREN Administration Diphenhydramine HCl 50 mg 07/16/16 11:30 07/16/16 11:52 Benadryl - PO 50 mg Q6H PRN Administration FOR ITCHING Enoxaparin Sodium 40 mg 07/06/16 10:00 07/16/16 10:39 Lovenox - SQ 40 mg DAILY KAREN Administration Guaifenesin 10 ml 07/09/16 17:50 Robitussin - PO Q6H PRN COUGH Ibuprofen 400 mg 07/16/16 15:22 Advil - PO 07/16/16 15:23 ONCE ONE Insulin Aspart 1 vial 07/05/16 16:30 07/16/16 11:47 Novolog Vial Sliding Scale - SQ Not Given ACHS KAREN Protocol Insulin Detemir 12 units 07/11/16 10:06 07/16/16 06:27 Levemir Vial SQ 12 units 0700,2200 KAREN Administration Montelukast Sodium 10 mg 07/06/16 22:00 07/15/16 22:43 Singulair - PO 10 mg HS KAREN Administration Elviteg/Crystal/Emtric/ 1 each 07/05/16 10:00 07/16/16 10:39 Tenofo Ala [Genvoya PO 1 each Tablet] DAILY KAREN Administration Nystatin 1 applic 07/12/16 14:00 07/16/16 10:38 Nystop Powder - TP 1 applic BID KAREN Administration Pantoprazole Sodium 40 mg 07/13/16 10:00 07/16/16 10:38 Protonix - PO 40 mg DAILY KAREN Administration Prednisone 40 mg 07/14/16 11:30 07/16/16 10:38 Deltasone - PO 40 mg DAILY KAREN Administration Tiotropium [place] 1 puff 07/05/16 16:30 07/15/16 10:50 Spiriva - IH 1 puff DAILY KAREN Administration ASSESSMENT & PLAN 46 year-old female with a PMH of asthma, anemia, HIV (on HAART therapy), and morbid obesity admitted for asthma exacerbation. Plan: 1. Acute asthma exacerbation - Transition to prednisone 40mg daily - Symbicort BID - Continue Spiriva, Singulair daily - Continue Albuterol nebulizers q6h standing - Daily peak flows - BiPap HS - Pulm following 2. Vaginal elsy - Nystain powder BID - Received diflucan x1 3. UA 4. HIV - Most recent CD4 09/2105 759 5. Chest Pain - Likely GI source - Cardiac w/u negative - Daily protonix 6. Anemia - Hgb stable; receives outpatient iron infusions 7. Hyperglycemia - Levemir 12 units BID - ISS, BGM ACHS 8. Abdominal pain - CTAP above, follow up repeat in 3 months 9. Headache - hx of migraines - Fiorcet PRN 10. DVT prophylaxis - Lovenox 40mg sq daily 11. Superficial thrombophlebitis --will get US of RUE to confirm --NSAIDS, warm compresses, elevation Visit type - Emergency Visit Emergency Visit: Yes ED Registration Date: 07/06/16 Care time: The patient presented to the Emergency Department on the above date and was hospitalized for further evaluation of their emergent condition. - New Patient This patient is new to me today: No - Critical Care Critical Care patient: No
[2016-07-16] MEDS ORDERED: IBUPROFEN 400 MG TABLET (FP) PO ONE (15:45)
[2016-07-16] MEDS: TIOTROPIUM BROMIDE 18 MCG/INH (DEVICE W/ 30 CAPSULES) IH SCH (16:37)
[2016-07-16] MEDS ORDERED: INSULIN (NOVOLOG) ASPART 100 UNITS/ML 10ML VIAL ONE (20:47)
[2016-07-16] MEDS: MONTELUKAST NA 10 MG TABLET PO SCH (21:45)
[2016-07-17] MEDS: MAG HYDROX/AL HYDROX/SIMETH 30 ML UNIT-DOSE CUP PO PRN (00:06)
[2016-07-17] MEDS ORDERED: IBUPROFEN 400 MG TABLET (FP) PO ONE (04:45)
[2016-07-17] MEDS: INSULIN SLIDING SCALE (NOVOLOG) 1 VIAL SQ SCH ×2 (06:41→13:07)
[2016-07-17] MEDS: INSULIN DETEMIR 100 UNITS/ML MDV SQ SCH (06:42)
[2016-07-17] MEDS: ALBUTEROL SO4 0.083% IH SOL 2.5 MG/3 ML VIAL.NEB. NEB PRN (09:25)
[2016-07-17 10:09] LABS: % CD 3 POS. LYMPH. 44.5 % (57.5-86.2); % CD 4 POS LYM 16.4 % (30.8-58.5); %CD3+CD4+CD8+ 0.7 % (Not Estab.); %CD3+CD4+CD8- 15.7 % (Not Estab.); %CD3+CD4-CD8+ 27.6 % (Not Estab.); %CD3+CD4-CD8- 0.4 % (Not Estab.); CD4/CD8 0.58 (0.92-3.72); CD4/CD8 NYSDOH RATIO 0.57 (Not Estab.)
[2016-07-17] MEDS ORDERED: PT OWN MED DRAWER 7, Y5N ONE ×3 (10:40→13:29)
[2016-07-17] MEDS: predniSONE 20 MG TABLET (UD) PO SCH (10:53)
[2016-07-17] MEDS: [UNRECOGNIZED DRUG - OTHER] PO SCH (10:54)
[2016-07-17] MEDS: ENOXAPARIN NA (PORCINE) 40 MG/0.4 ML DISP.SYRIN SQ SCH (10:54)
[2016-07-17] MEDS: NYSTATIN POWDER 100,000 UNITS/GM - 15 GM TOPICAL POWDER TP SCH (10:55)
[2016-07-17] MEDS: BUDESONIDE/FORMETEROL FUMARATE 160/4.5 mcg INHALER IH SCH (10:55)
[2016-07-17] MEDS: PANTOPRAZOLE 40 MG TABLET (FP) PO SCH (10:56)
[2016-07-17] MEDS: TIOTROPIUM BROMIDE 18 MCG/INH (DEVICE W/ 30 CAPSULES) IH SCH (10:57)
[2016-07-17 11:09] VITALS: PULSE 65
--- NOTE | 2016-07-17 12:10 | DS ---
Physical Exam: SUBJECTIVE: Patient seen and examined OBJECTIVE: Vital Signs Period Temp Pulse Resp BP Sys/So Pulse Ox Last 24 Hr 97.2 F-98.2 F 65-78 20-20 123-128/60-73 98-100 PHYSICAL EXAM GENERAL: The patient is awake, alert, and fully oriented, in no acute distress. HEAD: Normal with no signs of trauma. EYES: PERRL, extraocular movements intact, sclera anicteric, conjunctiva clear. No ptosis. LUNGS: Breath sounds equal, clear to auscultation bilaterally, no wheezes, no crackles, no accessory muscle use. HEART: Regular rate and rhythm, S1, S2 without murmur, rub or gallop. ABDOMEN: Obese; soft, nontender, nondistended, normoactive bowel sounds, no guarding, no rebound RUE: no erythema, no swelling, +tenderness from dorsal surface of hand to antecubital space NEUROLOGICAL: Cranial nerves II through XII grossly intact. Normal speech, gait not observed. Laboratory Results - last 24 hr 07/14/16 07/16/16 07/16/16 14:20 11:47 16:34 WBC 17.0 H Absolute Lymphs (auto) 1.2 Lymphocytes 7 Nucleated RBCs 0 POC Glucometer 87 184 Absolute CD3 Count 534 L % CD3+ Lymphocytes 44.5 L Absolute CD4 [place] 197 L % CD4+ Lymphocyte 16.4 L CD4/CD8 Ratio 0.58 L % CD8+ Lymphocyte 28.4 Absolute CD8 Count 341 07/16/16 07/17/16 21:43 05:52 WBC Absolute Lymphs (auto) Lymphocytes Nucleated RBCs POC Glucometer 109 96 Absolute CD3 Count % CD3+ Lymphocytes Absolute CD4 [place] % CD4+ Lymphocyte CD4/CD8 Ratio % CD8+ Lymphocyte Absolute CD8 Count HOSPITAL COURSE: Date of Admission:07/06/16 Date of Discharge: 07/17/16 ASSESSMENT & PLAN 46 year-old female with a PMH of asthma, anemia, HIV (on HAART therapy), and morbid obesity admitted for asthma exacerbation. 1. Acute asthma exacerbation - Transition to prednisone 40mg daily, discharged on taper - Symbicort BID - Continued Spiriva, Singulair - Continued Albuterol nebulizers - Daily peak flows - BiPap HS 2. Vaginal elsy - Nystain powder BID - Received diflucan x1 3. UA 4. HIV - Most recent CD4 09/2105 759 5. Chest Pain - Likely GI source - Cardiac w/u negative - Daily protonix 6. Anemia - Hgb stable; receives outpatient iron infusions 7. Hyperglycemia - Levemir 12 units BID - ISS, BGM ACHS 8. Abdominal pain - CTAP above, follow up repeat in 3 months 9. Headache - hx of migraines - Fiorcet PRN 10. DVT prophylaxis - Lovenox 40mg sq daily 11. Superficial thrombophlebitis from peripheral IV infiltration right hand --NSAIDS, warm compresses, elevation Minutes to complete discharge: 35 Discharge Summary Reason For Visit: ASTHMA Current Active Problems Asthma (Acute) Asthma exacerbation (Acute) DVT prophylaxis (Acute) Numbness (Acute) Sleep apnea, obstructive (Acute) - Instructions Diet, Activity, Other Instructions: A prescription has been sent to your pharmacy for a Medrol Dosepak. Take this medication as directed and be sure to finish all the medication. You should take ibuprofen for the next 3 days for the small blood clot in your right hand. Keep cool compresses on your hand, and keep it elevated as much as possible as this will help relieve discomfort. Return to the emergency department for any new or worsening symptoms. Referrals: Carla Jiménez MD [Primary Care Provider] - Disposition: HOME - Home Medications Comprehensive Discharge Medication List: Ambulatory Orders Elviteg/Crystal/Emtric/Tenofo Ala [Genvoya Tablet] 1 each PO DAILY 02/15/16 Methylprednisolone [Medrol Dose [place]] 4 mg PO ASDIR #21 tablet 07/17/16 This patient is new to me today: No Emergency Visit: Yes ED Registration Date: 07/06/16 Care time: The patient presented to the Emergency Department on the above date and was hospitalized for further evaluation of their emergent condition. Critical Care patient: No - Discharge Referral Referred to [facility] Med [facility] No
[2016-07-17 13:12] VITALS: BP 105/47; TEMP 97.9
== END 2016-07-17 13:37 | disposition home or self-care (01) | DRG 141 ==
LOC: JER 15:53 → JERBED 19:55 → UNDOADMOB 19:55 → INTOOBSV 19:55 → JERBED 22:53 → J7W 23:42 → OBSVTOIN 07-06 12:08 → J7W 07-06 20:51
PROVIDERS: ADMIT Internal Medicine; ATTEND Nurse Practitioner Acute Care
PROC: 5A09557 Assistance with Respiratory Ventilation, Greater than 96 Consecutive Hours, Continuous Positive Airway Pressure (ICD-10-PCS; principal; 2016-07-04)
DX: J45.41 Moderate persistent asthma with (acute) exacerbation (principal); E66.01 Morbid (severe) obesity due to excess calories; Z68.44 Body mass index [BMI] 60.0-69.9, adult; G47.33 Obstructive sleep apnea (adult) (pediatric); R20.0 Anesthesia of skin; Z21 Asymptomatic human immunodeficiency virus [HIV] infection status; R07.9 Chest pain, unspecified; D64.9 Anemia, unspecified; R10.9 Unspecified abdominal pain; R51 Headache; B37.3 Candidiasis of vulva and vagina; G62.9 Polyneuropathy, unspecified
CPT/HCPCS: 36415; 71010-TC; 71020-TC; 74177-TC; 80048; 80053; 81003; 81015; 82550; 83735; 84484; 84703; 85025; 85379; 86359; 86360; 86850; 86900; 86901; 87086; 93005; 93010; 93971; 94010; 94150; 94640; 94660; 94761; 99283-25; G0378; Q9967

== ENCOUNTER 2016-07-21 00:36 | Inpatient (IN) | payer OTHER ==
--- NOTE | 2016-07-21 00:48 | PDOC ---
History of Present Illness - General History Source: Patient Exam Limitations: No Limitations - History of Present Illness Initial Comments: 07/21/16 01:05 The patient is a 46 year old female with a significant past medical history of asthma, HIV (compliant with medications), and anemia, who presents to the emergency department for further evaluation of shortness of breath since earlier today. The patient notes that she began wheezing earlier and shortly after began having shortness of breath. The patient notes that she was discharged from this hospital 13 days ago. The patient also reports abdominal pain, dysuria, and diarrhea. The patient notes that her abdominal pain began during her stay in the hospital and was diagnosed as internal inflammation. On examination the patient had an episode of vomiting. <Ronni López - Last Filed: 07/21/16 01:15> - General History Source: Patient <MedhatGary paul - Last Filed: 07/21/16 01:39> - General Stated Complaint: DIFFICULTY BREATHING Time Seen by Provider: 07/21/16 00:48 Past History <Ronni López - Last Filed: 07/21/16 01:15> - Past Medical History Anemia: Yes Asthma: Yes HIV: Yes (AIDS) - Surgical History Abdominal Surgery: Yes - Family Disease History Family Disease History: Diabetes: Father, Heart Disease: Father - Reproductive History (#): 6 Para: 5 Cervical CA: No Dysfunctional Uterine Bleeding: Yes Ectopic : No Endometrial CA: No Polycystic Ovaries: No Therapeutic (s) & number: No Tubal Ligation: No Spontaneous : 1 - Immunization History Immunization Up to Date: Yes - Psycho/Social/Smoking Cessation Hx Anxiety: No Suicidal Ideation: No Smoking History: Never smoked Have you smoked in the past 12 months: No Hx Alcohol Use: No Drug/Substance Use Hx: No Substance Use Type: None Hx Substance Use Treatment: No <Gary Olmedo - Last Filed: 07/21/16 01:39> - Past Medical History Allergies/Adverse Reactions: Allergies Allergy/AdvReac Type Severity Reaction Status Date / Time omeprazole [From Prilosec] Allergy Mild Hives Verified 07/21/16 01:00 omeprazole magnesium Allergy Mild Hives Verified 07/21/16 01:00 [From Prilosec] Home Medications: Ambulatory Orders Elviteg/Crystal/Emtric/Tenofo Ala [Genvoya Tablet] 1 each PO DAILY 02/15/16 Methylprednisolone [Medrol Dose [place]] 4 mg PO ASDIR #21 tablet 07/17/16 Review of Systems - Review of Systems Able to Perform ROS?: Yes Comments:: 07/21/16 01:05 CONSTITUTIONAL: Absent: fever, chills, diaphoresis, generalized weakness, malaise, loss of appetite HEENT: Absent: rhinorrhea, nasal congestion, throat pain, throat swelling, difficulty swallowing, mouth swelling, ear pain, eye pain, visual Changes CARDIOVASCULAR: Absent: chest pain, syncope, palpitations, irregular heart rate, lightheadedness , peripheral edema RESPIRATORY: Present: Shortness of breath, wheezing Absent: cough, dyspnea with exertion, orthopnea, stridor, hemoptysis GASTROINTESTINAL: Present: abdominal pain, vomiting, diarrhea, Absent: nausea, constipation, melena, hematochezia GENITOURINARY: Present: Dysuria Absent: frequency, urgency, hesitancy, hematuria, flank pain, genital pain MUSCULOSKELETAL: Absent: myalgia, arthralgia, joint swelling SKIN: Absent: rash, itching, pallor HEMATOLOGIC/IMMUNOLOGIC: Absent: easy bleeding, easy bruising, lymphadenopathy, frequent infections ENDOCRINE: Absent: unexplained weight gain, unexplained weight loss, heat intolerance, cold intolerance NEUROLOGIC: Absent: headache, focal weakness or paresthesias, dizziness, unsteady gait, seizure, mental status changes, bladder or bowel incontinence PSYCHIATRIC: Absent: anxiety, depression, suicidal or homicidal ideation, hallucinations. <Ronni López - Last Filed: 07/21/16 01:15> *Physical Exam - Vital Signs Last Vital Signs Temp Pulse Resp BP Pulse Ox 98.4 F 75 16 130/75 100 07/21/16 01:00 07/21/16 01:00 07/21/16 01:00 07/21/16 01:00 07/21/16 01:00 - Physical Exam Comments: 07/21/16 01:05 GENERAL: (+) Morbidly obese. well developed, well nourished. Awake and alert. In no acute distress. HEENT: Normocephalic, atraumatic. PERRLA, EOMI. No conjunctival pallor. Sclerae are non -icteric. Moist mucous membranes. Oropharynx is clear. NECK: Supple. Full ROM. No JVD. Carotid pulses 2+ and symmetric, without bruits. No thyromegaly. No lymphadenopathy. CARDIOVASCULAR: Regular rate and rhythm. No murmurs, rubs, or gallops. Distal pulses are 2+ and symmetric. PULMONARY: (+) Bilateral wheezing, poor expiratory effort, bilateral decreased breath sounds. ABDOMINAL: Soft. Non-tender. Non-distended. No rebound or guarding. No organomegaly. Normoactive bowel sounds. MUSCULOSKELETAL Normal range of motion at all joints. No bony deformities or tenderness. No CVA tenderness. EXTREMITIES: No cyanosis. No clubbing. No edema. No calf tenderness. SKIN: Warm and dry. Normal capillary refill. No rashes. No jaundice. NEUROLOGICAL: Alert, awake, appropriate. Cranial nerves 2-12 intact. No deficits to light touch and temperature in face, upper extremities and lower extremities. No motor deficits in the in face, upper extremities and lower extremities. Normoreflexic in the upper and lower extremities. Normal speech. Toes are downgoing bilaterally. Gait is normal without ataxia. PSYCHIATRIC: Cooperative. Good eye contact. Appropriate mood and affect. <Ronni López - Last Filed: 07/21/16 01:15> Heart Score/ECG Review - ECG Impressions Comment:: 07/21/16 01:15 ECG IMPRESSION: Normal sinus rhythm. Nonspecific ST abnormality. Abnormal ECG. <Ronni López - Last Filed: 07/21/16 01:15> Medical Decision Making - Medical Decision Making 07/21/16 01:39 Dr. Olmedo: The scribe's documentation has been prepared under my direction and personally reviewed by me in its entirery. I confirm that the note above accurately reflects all work, treatment, procedures, and medical decision making performed by me. <Gary Olmedo - Last Filed: 07/21/16 01:39> *DC/Admit/Observation/Transfer - Attestations Scribe Attestion: 07/21/16 01:06 Documentation prepared by Ronni López, acting as medical billing associate for Gary Olmedo MD. <Ronni López - Last Filed: 07/21/16 01:15> - Discharge Dispostion Admit: Yes <Gary Olmedo - Last Filed: 07/21/16 01:39> Diagnosis at time of Disposition: Asthma, HIV (human immunodeficiency virus infection) - Referrals Referrals: Carla Jiménez MD [Primary Care Provider] -
[2016-07-21] MEDS ORDERED: ALBUTEROL SO4 2.5/IPRATROPIUM 0.5 INH SOL 3 ML VIAL.NEB. NEB STA ×2 (00:57→00:59)
[2016-07-21] MEDS ORDERED: ONDANSETRON 4 MG/2 ML VIAL IVPUSH STA (00:57)
[2016-07-21] MEDS ORDERED: methylPREDNISolone NA SUCC 125 MG/2 ML VIAL IVPB ONE (00:57)
[2016-07-21] MEDS ORDERED: SODIUM CHLORIDE 1,000 ML IV STA (00:58)
[2016-07-21] MEDS ORDERED: methylPREDNISolone NA SUCC 125 MG/2 ML VIAL ONE (01:18)
[2016-07-21] MEDS ORDERED: ONDANSETRON 4 MG/2 ML VIAL ONE (01:19)
[2016-07-21] MEDS ORDERED: ALBUTEROL SO4 2.5/IPRATROPIUM 0.5 INH SOL 3 ML VIAL.NEB. NEB ONE (01:19)
[2016-07-21 01:58] LABS: BASOPHIL 0.3 % (0-2.0); MCH 23.5 pg (25.7-33.7); MEAN CELL VOLUME 75.8 fl (80-96); MEAN PLT VOLUME 8.3 fl (7.5-11.1); NEUTROPHILS 83.5 % (42.8-82.8); PLATELET COUNT 241 K/MM3 (134-434); RDW 16.9 % (11.6-15.6); WHITE BLOOD COUNT 19.5 K/mm3 (4.0-10.0)
[2016-07-21 02:25] LABS: INR 1.07 (0.82-1.09); PROTHROMBIN TIME (PATIENT) 11.8 SEC (9.98-11.88)
--- NOTE | 2016-07-21 02:42 | PN ---
Teaching Attending Note Name of Resident: Anthony Ely Patient seen and examined with resident during rounds, case discussed and plans agreed on as documented in the above H&P
[2016-07-21 02:48] LABS: TROPONIN I < 0.02 ng/ml (0.00-0.05)
[2016-07-21 03:40] LABS: ALBUMIN 3.5 g/dl (3.4-5.0); ANION GAP 14 (8-16); BILIRUBIN,TOTAL 0.3 mg/dL (0.2-1.0); CALCIUM 8.9 mg/dL (8.5-10.1); CO2 24 mmol/L (21-32); GLUCOSE,RANDOM 201 mg/dL (74-106); SGOT/AST 8 U/L (15-37); SGPT/ALT 39 U/L (12-78); TOT PROT 6.4 g/dl (6.4-8.2)
[2016-07-21 03:41] LABS: ALK PHOS 51 U/L (45-117)
[2016-07-21 03:51] VITALS: BMI 59.2
[2016-07-21] MEDS ORDERED: ALBUTEROL SO4 0.083% IH SOL 2.5 MG/3 ML VIAL.NEB. NEB PRN (04:18)
[2016-07-21] MEDS ORDERED: SODIUM CHLORIDE 1,000 ML IV SCH (04:30)
[2016-07-21] MEDS ORDERED: RANITIDINE HCL 150 MG TABLET (FP) PO ONE (04:36)
--- NOTE | 2016-07-21 04:36 | HP ---
CHIEF COMPLAINT: shortness and breath PCP: Dr. Jiménez HISTORY OF PRESENT ILLNESS: 46 y/o F w/PMH of asthma, HIV (on genvoya), anemia, presents to ER with SOB. She was recently discharged from [facility] where she was admitted for acute asthma exacerbation (discharged 07/17/16 w/medrol dose rodriguez). She states that yesterday she felt well but today she began having shortness of breath and wheezing and felt some body numbness and came to the ER. She states that her feels sick who she lives with. She also states that she has abdominal pain and she has thrown up multiple times since arriving in the ER. Vomit is nonbilious, nonbloody. Pt also reports some non-bloody diarrhea. Pt denies fevers and chills, CP. ER course was notable for: (1) Duonebx2, NS, solumedrol 125, zofran (2) CXR (3) PAST MEDICAL HISTORY: asthma, HIV, anemia PAST SURGICAL HISTORY: Social History: Smoking: never Alcohol: occasional Drugs: denies Family History: Mother: DM, COPD, asthma, diverticulitis. Father: Cancer Allergies omeprazole [From Prilosec] Allergy (Mild, Verified 07/21/16 01:00) Hives omeprazole magnesium [From Prilosec] Allergy (Mild, Verified 07/21/16 01:00) Hives HOME MEDICATIONS: Home Medications Medication Instructions Recorded Elviteg/Crystal/Emtric/Tenofo Ala 1 each PO DAILY 02/15/16 [Genvoya Tablet] Methylprednisolone [Medrol Dose 4 mg PO ASDIR #21 tablet 07/17/16 Rodriguez] REVIEW OF SYSTEMS CONSTITUTIONAL: Absent: fever, chills, diaphoresis, generalized weakness, malaise, loss of appetite, weight change HEENT: Absent: rhinorrhea, nasal congestion, throat pain, throat swelling, difficulty swallowing, mouth swelling, ear pain, eye pain, visual changes CARDIOVASCULAR: Absent: chest pain, syncope, palpitations, irregular heart rate, lightheadedness , peripheral edema RESPIRATORY: sob, wheezing Absent: cough, dyspnea with exertion, orthopnea, stridor, hemoptysis GASTROINTESTINAL: abd pain, nausea, vomiting, diarrhea Absent: abdominal distension, constipation, melena, hematochezia GENITOURINARY: Absent: dysuria, frequency, urgency, hesitancy, hematuria, flank pain, genital pain MUSCULOSKELETAL: Absent: myalgia, arthralgia, joint swelling, back pain, neck pain SKIN: Absent: rash, itching, pallor HEMATOLOGIC/IMMUNOLOGIC: Absent: easy bleeding, easy bruising, lymphadenopathy, frequent infections ENDOCRINE: Absent: unexplained weight gain, unexplained weight loss, heat intolerance, cold intolerance NEUROLOGIC: Absent: headache, focal weakness or paresthesias, dizziness, unsteady gait, seizure, mental status changes, bladder or bowel incontinence PSYCHIATRIC: Absent: anxiety, depression, suicidal or homicidal ideation, hallucinations. PHYSICAL EXAMINATION Vital Signs - 24 hr 07/21/16 02:15 Temperature 97.9 F Pulse Rate [ 88 Right Radial] Respiratory 24 Rate Blood Pressure 136/93 [Right Arm] O2 Sat by Pulse 98 Oximetry (%) GENERAL: Awake, alert, and fully oriented, in no acute distress. HEAD: Normal with no signs of trauma. EYES: extraocular movements intact, sclera anicteric, conjunctiva clear. No lid lag. EARS, NOSE, THROAT: Ears normal, nares patent, oropharynx clear without exudates. Moist mucous membranes. NECK: Normal range of motion, submental and cervical lymphadenopathy, acanthosis nigricans LUNGS: b/l expiratory wheezing HEART: Regular rate and rhythm, normal S1 and S2 without murmur, rub or gallop. ABDOMEN: Soft, nontender, not distended, normoactive bowel sounds, no guarding, no rebound, no masses. No hepatomegaly or splenomegaly. LOWER EXTREMITIES: warm, well-perfused. No calf tenderness. 1+ pitting edema. NEUROLOGICAL: Normal speech.Gait not observed. PSYCHIATRIC: Cooperative. Good eye contact. Appropriate mood and affect. SKIN: Warm, dry, normal turgor, no rashes or lesions noted, normal capillary refill. Laboratory Results - last 24 hr 07/21/16 07/21/16 07/21/16 01:45 01:45 01:45 WBC 19.5 H RBC 5.24 H Hgb 12.3 Hct 39.7 MCV 75.8 L MCHC 31.0 L RDW 16.9 H Plt Count 241 D MPV 8.3 Neutrophils % 83.5 H Lymphocytes % 9.4 Monocytes % 6.8 Eosinophils % 0.0 Basophils % 0.3 INR 1.07 Magnesium Creatine Kinase Troponin I Lipase Serum , Qual Negative 07/21/16 01:45 WBC RBC Hgb Hct MCV MCHC RDW Plt Count MPV Neutrophils % Lymphocytes % Monocytes % Eosinophils % Basophils % INR Magnesium 2.0 Creatine Kinase 51 Troponin I < 0.02 Lipase 100 Serum , Qual CBC, BMP 07/21/16 01:45 07/21/16 02:58 Imaging: CXR: poorly exposed film, difficult to assess. Looks like there are no significant changes from previous CXR on last admission. Awaiting official read. ASSESSMENT/PLAN: 46 y/o F w/PMH of asthma, HIV (on genvoya), anemia, presents to ER with SOB and wheezing. -Asthma exacerbation -Solumedrol IV 40 mg bid -duonebs q6h belle -alb q6h prn -c-pap use at night, if not available use bipap 12/, 28% O2 -Abd pain secondary to viral gastroenteritis vs bacterial gastroenteritis -stool cultures and gram stain -nausea: zofran 4mg iv po q6h prn -ranitidine once -Hyperglycemia -f/u A1C, added on to last labs -ISS, BGMs achs -Leukocytosis -was discharged on medrol dose rodriguez -on steroids currently -f/u cxr for pna -f/u UA for possible UTI -HIV -c/w genvoya -Morbid obesity -f/u lipids -nutrition counseling -DVT ppx -hep sq tid -FEN -NS @ 125 ml/hr -electrolytes wnl -diabetic diet -Dispo: -admit to m/s Visit type - Emergency Visit Emergency Visit: Yes ED Registration Date: 07/21/16 Care time: The patient presented to the Emergency Department on the above date and was hospitalized for further evaluation of their emergent condition. - New Patient This patient is new to me today: Yes Date on this admission: 07/21/16 - Critical Care Critical Care patient: No
[2016-07-21] MEDS: ACETAMINOPHEN 325 MG TABLET (FP) PO PRN ×3 (05:53→23:03)
[2016-07-21] MEDS: HEPARIN NA (PORCINE) 5,000 UNITS/ML 1ML VIAL SQ SCH ×3 (05:58→22:09)
[2016-07-21] MEDS ORDERED: ALBUTEROL SO4 2.5/IPRATROPIUM 0.5 INH SOL 3 ML VIAL.NEB. NEB SCH (06:00)
[2016-07-21] MEDS: INSULIN SLIDING SCALE (NOVOLOG) 1 VIAL SQ SCH ×4 (06:00→22:10)
[2016-07-21 06:06] LABS: URINE APPEARANCE CLEAR; URINE BILIRUBIN NEGATIVE (NEGATIVE); URINE COLOR LTYELLOW; URINE GLUCOSE (UA) 2+ (NEGATIVE); URINE KETONE NEGATIVE (NEGATIVE); URINE NITRITE NEGATIVE (NEGATIVE); URINE PROTEIN NEGATIVE (NEGATIVE); URINE UROBILINOGEN NEGATIVE E.U./dl (0.2-1.0)
[2016-07-21 06:15] LABS: URINE BLOOD 1+ (NEGATIVE); URINE LEUK ESTERASE 2+ (NEGATIVE)
[2016-07-21 06:30] LABS: URINE RBC 2 /hpf (0-3); URINE WBC 12 /hpf (3-5)
[2016-07-21 07:57] LABS: BASOPHIL 0.1 % (0-2.0); MCH 23.9 pg (25.7-33.7); MCHC 31.2 g/dl (32.0-36.0); MEAN CELL VOLUME 76.6 fl (80-96); MEAN PLT VOLUME 7.9 fl (7.5-11.1); NEUTROPHILS 91.9 % (42.8-82.8); PLATELET COUNT 207 K/MM3 (134-434); RDW 17.3 % (11.6-15.6); WHITE BLOOD COUNT 18.5 K/mm3 (4.0-10.0)
[2016-07-21 08:47] LABS: ALBUMIN 3.4 g/dl (3.4-5.0); ALK PHOS 50 U/L (45-117); ANION GAP 15 (8-16); BILIRUBIN,TOTAL 0.3 mg/dL (0.2-1.0); CALCIUM 8.6 mg/dL (8.5-10.1); CO2 22 mmol/L (21-32); CREATININE 0.9 mg/dL (0.55-1.02); GLUCOSE,RANDOM 182 mg/dL (74-106); SGOT/AST 6 U/L (15-37); SGPT/ALT 36 U/L (12-78); TOT PROT 6.3 g/dl (6.4-8.2)
[2016-07-21] MEDS: methylPREDNISolone NA SUCC 40 MG/1 ML VIAL IVPB SCH ×2 (09:31→22:09)
[2016-07-21] MEDS ORDERED: GENVOYA PO SCH (10:00)
--- NOTE | 2016-07-21 10:00 | EKG ---
Test Reason : Blood Pressure : / mmHG Vent. Rate : 092 BPM Atrial Rate : 092 BPM P-R Int : 136 ms QRS Dur : 106 ms QT Int : 380 ms P-R-T Axes : 060 023 014 degrees QTc Int : 469 ms NORMAL SINUS RHYTHM NONSPECIFIC ST ABNORMALITY ABNORMAL ECG WHEN COMPARED WITH ECG OF 09-JUL-2016 12:47, NO SIGNIFICANT CHANGE WAS FOUND Confirmed by CL PORTER MD ([id number]) on 07/21/2016 9:59:35 AM Referred By: Confirmed By:CL PORTER MD
[2016-07-21] MEDS: ALBUTEROL SO4 0.083% IH SOL 2.5 MG/3 ML VIAL.NEB. NEB SCH ×3 (10:45→22:46)
[2016-07-21] MEDS ORDERED: COD LIVER OIL/ZINC OXIDE PASTE 56 GM TUBE TP PRN (11:13)
[2016-07-21] MEDS: PANTOPRAZOLE SODIUM 100 ML IVPB SCH ×2 (13:25→22:09)
[2016-07-21] MEDS: FLUTICASONE/SALMETEROL 100 MCG/50 MCG DISKUS IH SCH ×2 (13:26→22:11)
[2016-07-21] MEDS: NYSTATIN POWDER 100,000 UNITS/GM - 15 GM TOPICAL POWDER TP SCH (13:26)
--- NOTE | 2016-07-21 14:33 | PN ---
Physical Exam: SUBJECTIVE: Patient seen and examined Patient resting in bed, NAD. afebrile and hemodynamically stable. had diarrhea yesterday (NBNB) and a solid BM this AM with bright red blood, painful. Complains of rectal pain x 1w. States she had 2 episodes of melena last week. States she has had diffuse crampy abd pain and epidastric burning for 2 yrs. ( still present). Mild nausea. EGD, colonoscopy done in 2014 due to pain wnl (Dr Alexandria walker [facility] from [facility]) Complains of genital fungal rash. States her SOB is improved, alleviated with nebs. Not requiring O2 NC, requires CPAP at night. no cough. complains of wheezing. denies chest pain, h/a, f/c, vomiting, diarrhea, dysuria. Crying in pain during rectal exam OBJECTIVE: Vital Signs Period Temp Pulse Resp BP Sys/So Pulse Ox Last 24 Hr 97.5 F-97.9 F 79-88 18-24 126-153/77-93 98 GENERAL: Awake, alert, and fully oriented, in no acute distress. HEAD: Normal with no signs of trauma. EYES: extraocular movements intact, sclera anicteric, conjunctiva clear. No lid lag. EARS, NOSE, THROAT: Moist mucous membranes. NECK: submental and cervical lymphadenopathy, acanthosis nigricans LUNGS: b/l expiratory wheezing, diffusely restricted air movement HEART: Regular rate and rhythm, normal S1 and S2 ABDOMEN: Soft, diffusely tender, not distended, normoactive bowel sounds, no guarding, no rebound, no masses. No hepatomegaly or splenomegaly. Rectal exam: very painful. possible fissure or ouptouching @6 o'clock. No obvious blood. perirectal dermatitis LOWER EXTREMITIES: warm, well-perfused. No calf tenderness. 1+ pitting edema. NEUROLOGICAL: Normal speech.Gait not observed. PSYCHIATRIC: Cooperative. Good eye contact. Appropriate mood and affect. SKIN: Warm, dry, lesions as above Laboratory Results - last 24 hr 07/21/16 07/21/16 07/21/16 01:45 01:45 01:45 WBC 19.5 H RBC 5.24 H Hgb 12.3 Hct 39.7 MCV 75.8 L MCHC 31.0 L RDW 16.9 H Plt Count 241 D MPV 8.3 Neutrophils % 83.5 H Lymphocytes % 9.4 Monocytes % 6.8 Eosinophils % 0.0 Basophils % 0.3 INR 1.07 Sodium Potassium Chloride Carbon Dioxide Anion Gap BUN Creatinine Creat Clearance w eGFR POC Glucometer Random Glucose Hemoglobin A1c % Calcium Magnesium Total Bilirubin AST ALT Alkaline Phosphatase Creatine Kinase Troponin I Total Protein Albumin Lipase Serum , Qual Negative Urine Color Ltyellow Urine Appearance Clear Urine pH 6.0 Ur Specific Marion 1.016 Urine Protein Negative Urine Glucose (UA) 2+ H Urine Ketones Negative Urine Blood 1+ H Urine Nitrite Negative Urine Bilirubin Negative Urine Urobilinogen Negative Ur Leukocyte Esterase 2+ H Urine RBC 2 Urine WBC 12 Ur Epithelial Cells Rare Stool Occult Blood 07/21/16 07/21/16 07/21/16 01:45 02:58 05:30 WBC RBC Hgb Hct MCV MCHC RDW Plt Count MPV Neutrophils % Lymphocytes % Monocytes % Eosinophils % Basophils % INR Sodium 140 Potassium 4.0 Chloride 102 Carbon Dioxide 24 Anion Gap 14 BUN 20 H Creatinine 1.0 D Creat Clearance w eGFR > 60 POC Glucometer Random Glucose 201 H D Hemoglobin A1c % Calcium 8.9 Magnesium 2.0 Total Bilirubin 0.3 AST 8 L ALT 39 Alkaline Phosphatase 51 Creatine Kinase 51 Troponin I < 0.02 Total Protein 6.4 Albumin 3.5 Lipase 100 Serum , Qual Urine Color Urine Appearance Urine pH Ur Specific Marion Urine Protein Urine Glucose (UA) Urine Ketones Urine Blood Urine Nitrite Urine Bilirubin Urine Urobilinogen Ur Leukocyte Esterase Urine RBC Urine WBC Ur Epithelial Cells Stool Occult Blood Positive 07/21/16 07/21/16 07/21/16 05:55 06:30 06:30 WBC 18.5 H RBC 5.11 Hgb 12.2 Hct 39.2 MCV 76.6 L MCHC 31.2 L RDW 17.3 H Plt Count 207 MPV 7.9 Neutrophils % 91.9 H Lymphocytes % 5.9 L D Monocytes % 2.1 L Eosinophils % 0.0 Basophils % 0.1 INR Sodium Potassium Chloride Carbon Dioxide Anion Gap BUN Creatinine Creat Clearance w eGFR POC Glucometer 187 Random Glucose Hemoglobin A1c % 7.9 H D Calcium Magnesium Total Bilirubin AST ALT Alkaline Phosphatase Creatine Kinase Troponin I Total Protein Albumin Lipase Serum , Qual Urine Color Urine Appearance Urine pH Ur Specific Marion Urine Protein Urine Glucose (UA) Urine Ketones Urine Blood Urine Nitrite Urine Bilirubin Urine Urobilinogen Ur Leukocyte Esterase Urine RBC Urine WBC Ur Epithelial Cells Stool Occult Blood 07/21/16 07/21/16 06:30 11:21 WBC RBC Hgb Hct MCV MCHC RDW Plt Count MPV Neutrophils % Lymphocytes % Monocytes % Eosinophils % Basophils % INR Sodium 138 Potassium 4.5 Chloride 101 Carbon Dioxide 22 Anion Gap 15 BUN 18 Creatinine 0.9 Creat Clearance w eGFR > 60 POC Glucometer 151 Random Glucose 182 H Hemoglobin A1c % Calcium 8.6 Magnesium Total Bilirubin 0.3 AST 6 L D ALT 36 Alkaline Phosphatase 50 Creatine Kinase Troponin I Total Protein 6.3 L Albumin 3.4 Lipase Serum , Qual Urine Color Urine Appearance Urine pH Ur Specific Marion Urine Protein Urine Glucose (UA) Urine Ketones Urine Blood Urine Nitrite Urine Bilirubin Urine Urobilinogen Ur Leukocyte Esterase Urine RBC Urine WBC Ur Epithelial Cells Stool Occult Blood Active Medications Generic Name Dose Route Start Last Admin Trade Name Freq PRN Reason Stop Dose Admin Acetaminophen 650 mg 07/21/16 05:33 07/21/16 13:48 Tylenol - PO 650 mg Q6H PRN Administration FEVER OR PAIN Albuterol Sulfate 1 amp 07/21/16 10:50 Ventolin 0.083% Nebulizer Soln - NEB Q4H PRN SHORT OF BREATH/WHEEZING Albuterol Sulfate 1 amp 07/21/16 11:00 07/21/16 10:45 Ventolin 0.083% Nebulizer Soln - NEB 1 amp Q6H KAREN Administration Heparin Sodium (Porcine) 5,000 unit 07/21/16 06:00 07/21/16 13:28 Heparin - SQ 5,000 unit TID KAREN Administration Pantoprazole Sodium 100 mls @ 200 mls/hr 07/21/16 11:00 07/21/16 13:25 Protonix 40mg Ivpb (Pre-Docked) IVPB 200 mls/hr BID KAREN Administration Insulin Aspart 1 vial 07/21/16 07:00 07/21/16 12:00 Novolog Vial Sliding Scale - SQ 2 units ACHS KAREN Administration Protocol Methylprednisolone Sodium Succinate 40 mg 07/21/16 10:00 07/21/16 09:31 Solu-Medrol - IVPB 40 mg BID KAREN Administration Genvoya Tablet - 1 each 07/21/16 10:00 Patient Own Med PO DAILY KAREN Nystatin 1 applic 07/21/16 11:15 07/21/16 13:26 Nystop Powder - TP 1 applic DAILY KAREN Administration Ondansetron HCl 4 mg 07/21/16 04:18 Zofran Injection IVPB Q6H PRN NAUSEA Fluticasone/Salmeterol 1 puff 07/21/16 11:00 07/21/16 13:26 Advair 100mcg/50mcg - IH 1 puff BID KAREN Administration Zinc Oxide 1 applic 07/21/16 11:13 07/21/16 13:42 Desitin Diaper Rash Oint - TP 1 applic ASDIR PRN Administration HYGEINE ASSESSMENT/PLAN: CXR: unremarkable ASSESSMENT/PLAN: 46 y/o F w/PMH of asthma, HIV (on genvoya), anemia, presents to ER with SOB and wheezing. Acute on chronic asthma exacerbation -Solumedrol IV 40 mg bid -albuterol q6h karen, q 4 prn -bipap use at night -repeat upright and lat cxr -advair -flu swab Upper GIB -r/o gastritis -melena -occult blood + -history of steroid use w/o GI ppx -history of GERD, abd pain -H pylori test -possible endoiscopy -PPi IV 40 bid Chronic abd pain -r/o IBS -Gi consult -possible colonoscopy Rectal bleed -possible fissure -Gi consult Acute gastroenteritis -viral vs bacterial -zofran prn -diarrhea resolved -stool studioe p/d DM -A1C 7.9 -BGM -sliding scale Leukocytosis -likley reactive due to steroids -trend HIV -genvoya -last CD4 534 Morbid obesity -f/u lipids -nutrition counseling PPX hep, ppi FEN No IVF lytes stable diabetic diet Dispo: [facility] [place] Visit type - Emergency Visit Emergency Visit: Yes ED Registration Date: 07/21/16 Care time: The patient presented to the Emergency Department on the above date and was hospitalized for further evaluation of their emergent condition. - New Patient This patient is new to me today: Yes Date on this admission: 07/21/16 - Critical Care Critical Care patient: No - Discharge Referral Referred to [facility] No
--- NOTE | 2016-07-21 17:00 | CON.GI ---
Consult Consult Specialty:: Gastroenterology Referred by:: hospitalist Reason for Consultation:: gi bleeding - History of Present Illness History of Present Illness: 46 y/o morbidly obese female was asked to be seen because of 1 episode of diarrhea and rectal bleeding. This was unwitnessed. She had an EGD and colonoscopy by Dr Chery at [facility] in 2014. This was reported to be normal. She has no further bleeding today. She has crampy abdominal pain. She hemoglobin remain to be stable. She was readmitted with exacerbation of asthma. - Past Medical History Cardio/Vascular: Yes: Other (Patient reports being seen by admin assistant for "sluggish heart". She reports occasional "heaviness" in her chest, no chest pain.) Pulmonary: Yes: Asthma Gastrointestinal: Yes: Irritable Bowel Disease. No: Ascites, GI Bleed, Ulcerative Colitis ...LMP: 01/23/15 Infectious Disease: Yes: HIV Additional Medical History: Morbid obesity - Past Surgical History Past Surgical History: Yes: - Alcohol/Substance Use Hx Alcohol Use: No - Smoking History Smoking history: Never smoked Have you smoked in the past 12 months: No - Social History Usual Living Arrangement: With Spouse ADL: Independent History of Recent Travel: No Home Medications - Allergies Allergies/Adverse Reactions: Allergies Allergy/AdvReac Type Severity Reaction Status Date / Time omeprazole [From Prilosec] Allergy Mild Hives Verified 07/21/16 01:00 omeprazole magnesium Allergy Mild Hives Verified 07/21/16 01:00 [From Prilosec] - Home Medications Home Medications: Ambulatory Orders Elviteg/Crystal/Emtric/Tenofo Ala [Genvoya Tablet] 1 each PO DAILY 02/15/16 Methylprednisolone [Medrol Dose Rodriguez] 4 mg PO ASDIR #21 tablet 07/17/16 Family Disease History - Family Disease History Family Disease History: Diabetes: Father, Heart Disease: Father Physical Exam-GI Vital Signs: Vital Signs Temperature 98.6 F 07/21/16 14:40 Pulse Rate 87 07/21/16 14:40 Respiratory Rate 22 07/21/16 14:40 Blood Pressure 139/98 07/21/16 14:40 O2 Sat by Pulse Oximetry (%) 98 07/21/16 02:15 Constitutional: Yes: Well Nourished, Obese Eyes: Yes: Conjunctiva Clear HENT: Yes: Atraumatic Neck: Yes: Supple Cardiovascular: Yes: Regular Rate and Rhythm Respiratory: Yes: CTA Bilaterally ...Palpate: Yes: Soft, Tenderness (--mild). No: Firm/Rigid, Guarding, Hepatomegaly, Mass, Pulsatile Mass, Splenomegaly Labs: CBC, BMP 07/21/16 06:30 07/21/16 06:30 INR, PTT INR 1.07 (0.82-1.09) 07/21/16 01:45 Assessment/Plan Rectal bleeding--etiology uncela R> will need to have outpatient colonoscopy made aware to follow-up
--- NOTE | 2016-07-21 17:22 | PN ---
Teaching Attending Note Name of Resident: Lida Pretty ATTENDING PHYSICIAN STATEMENT I saw and evaluated the patient. I reviewed the resident's note and discussed the case with the resident. I agree with the resident's findings and plan as documented. SUBJECTIVE: no fever or chills, SOB and wheezing is slightly better today . had just had her breathing treatment before my evaluation . reports one episode of BRBPR yesterday with a formed BM. reports melena x 2 in past month . reports N/V and ABd pain in past 2 days OBJECTIVE: NAD. AAox3 CV: RRR, no MRG Lungs : minimal wheezing , good air entry . no crackles Ext : no edema Abd: soft, TTP in all quadrants gissell in epigastric area . no rebound , nl BS rectal : nl hair distribution , no external hemorrhoids, pain with inserting the examiner finger. a pouch is felt in anterior rectal wall , no internal hemorrhoids are felt ASSESSMENT AND PLAN: 46 y/o lady with h/o Asthma, HIV, anemia who presented with SOB and wheezing , Abd pain N/V and rectal bleed . She was found to have Asthma exacerbation 1- ASthma exacerbation : no evidence of PNA , even on repeated Cxray - ALbuterol Nebs QID , and PRN - add Advair . - check Peak flow daily - solu-Medrol BID - leukocytosis is likely due to steroids - check influenza swab - out pt pulm f/u 2- New onset Dm : glc now worse with steroids - SSI now - metformin at dc 3- Melena : likley due to upper GI bleed, from erosive gastritis in setting of steroids use . - Hb stable , no more bleed . BRBPR yesterday is likely due to either hemorrhoids or a fissure - Rectal exam with no stool on examiner finger, but rectal pain and a pouch felt in anterior rectum. - start PPI IV BID - GI consult . - monitor HB 4- pyuria : has no sx , but diabetic. hold off Abx , but check urine cx 5- HIV : cont meds
[2016-07-21] MEDS: ONDANSETRON 4 MG/2 ML VIAL IVPB PRN (22:10)
[2016-07-22] MEDS ORDERED: PIPERACILLIN/TAZOB 4.5 GM/100 ML PRE-DOCKED IVPB SCH (00:30)
[2016-07-22] MEDS: ALBUTEROL SO4 0.083% IH SOL 2.5 MG/3 ML VIAL.NEB. NEB PRN (03:15)
--- NOTE | 2016-07-22 03:42 | HOSP ---
Subjective - Review of Symptoms Events since last encounter: Was paged by the nurse at 3:20am and mentioned that patient has been complaining of shortness of breath and right sided numbness. Went to assess the patient. As per the patient, she slept for about 2 hours in sitting position on the bed. She woke up with shortness of breath and immediately called the nurse. She was then given neb treatment and during that time she felt burning sensation at the back of her neck and started having numbness over the right side of the face, arms, legs. Also mentions she has right sided eye pain, shooting in nature towards the back but no change in vision or visual loss. Denies chest pain, palpitation. Does have dry cough, chest soreness due to coughing and abdominal cramps. Had 3 bowel movements today. Increased frequency of urination but no urgency or incontinence. As per the evening note, patient had similar complaint of numbness on the right side. Since patient had similar episode last admission and neuro exam was unchanged, no further investigation was done. Physical exam: Vitals:BP- 142/85 mmHg, P-95bpm; Temp-98F, Spo2-98 % on RA GENERAL: Morbidly obese, Awake, alert, and fully oriented, in mild respiratory distress. HEAD: Normal with no signs of trauma. EYES: EOM intact, no pallor or icterus. EARS, NOSE, THROAT: Moist mucous membranes. NECK: Cervical lymphadenopathy, acanthosis nigricans LUNGS: B/L equal air entry, B/L expiratory wheezing, poor inspiratory/ expiratory effort HEART: Regular rate and rhythm, normal S1 and S2, no murmur. ABDOMEN: Soft, diffusely tender, not distended, normoactive bowel sounds, no guarding, no rebound, no masses. No hepatomegaly or splenomegaly. LOWER EXTREMITIES: warm, well-perfused. No calf tenderness. 1+ pitting edema. NEUROLOGICAL: Normal speech.Gait not observed. Bulk, tone, power, reflexes normal in all extremities. Decreased sensation to light touch on the right forehead and cheeks- Unchanged from prior examination. PSYCHIATRIC: Cooperative. Good eye contact. Appropriate mood and affect. SKIN: Warm, dry, lesions as above A/P Patient is a 46 year old Female with significant PMH of asthma, HIV (on genvoya) , anemia, presented to the ED with SOB and wheezing admitted with the diagnosis of Asthma exacerbation. # SOB Most likely due to asthma exacerbation Although patients saturation in RA was 97%, ordered nasal oxygen @ 2L as patient's SOB didn't improve with nebulization. After she received the oxygen, she her SOB has improved. At present, her HR is 95. But if she becomes more tachycardic and continues to have shortness of breath will order ABG. Would also like to r/o PE if symptoms worsen give the h/o morbidly obese, young female with shortness of breath. # Numbness on the right side- r/o electrolyte imbalance Ordered all morning labs stat with magnesium and phosphorus Will replete if depleted. Would consider neurology consult in the morning Plan of care explained to the patient. She verbalized understanding. Physical Examination Vital Signs: Vital Signs Temperature 98.4 F 07/21/16 22:00 Pulse Rate 89 07/21/16 22:00 Respiratory Rate 18 07/21/16 22:00 Blood Pressure 160/79 07/21/16 22:00 O2 Sat by Pulse Oximetry (%) 98 07/22/16 00:05 Labs: CBC, BMP 07/21/16 06:30 07/21/16 06:30 Visit type - Emergency Visit Emergency Visit: Yes ED Registration Date: 07/21/16 Care time: The patient presented to the Emergency Department on the above date and was hospitalized for further evaluation of their emergent condition. - New Patient This patient is new to me today: Yes Date on this admission: 07/22/16 - Critical Care Critical Care patient: No
[2016-07-22 04:05] LABS: MCHC 31.1 g/dl (32.0-36.0); MEAN CELL VOLUME 77.2 fl (80-96); PLATELET COUNT 208 K/MM3 (134-434); RDW 17.4 % (11.6-15.6); WHITE BLOOD COUNT 20.9 K/mm3 (4.0-10.0)
[2016-07-22 04:42] LABS: CALCIUM 8.6 mg/dL (8.5-10.1); CREATININE 1.2 mg/dL (0.55-1.02); MAGNESIUM 2.1 mg/dL (1.8-2.4); PHOSPHOROUS 3.1 mg/dL (2.5-4.9)
[2016-07-22] MEDS: HEPARIN NA (PORCINE) 5,000 UNITS/ML 1ML VIAL SQ SCH (05:27)
[2016-07-22] MEDS: ACETAMINOPHEN 325 MG TABLET (FP) PO PRN ×2 (05:28→22:39)
[2016-07-22] MEDS: ONDANSETRON 4 MG/2 ML VIAL IVPB PRN ×2 (05:29→12:53)
[2016-07-22] MEDS: INSULIN SLIDING SCALE (NOVOLOG) 1 VIAL SQ SCH ×4 (06:18→22:08)
[2016-07-22] MEDS: ALBUTEROL SO4 0.083% IH SOL 2.5 MG/3 ML VIAL.NEB. NEB SCH ×4 (06:50→22:35)
[2016-07-22] MEDS ORDERED: PT OWN MED DRAWER 7, Y5N ONE (09:51)
[2016-07-22] MEDS: FLUTICASONE/SALMETEROL 100 MCG/50 MCG DISKUS IH SCH ×2 (09:59→22:07)
[2016-07-22] MEDS: methylPREDNISolone NA SUCC 40 MG/1 ML VIAL IVPB SCH ×2 (09:59→22:09)
[2016-07-22] MEDS: PANTOPRAZOLE SODIUM 100 ML IVPB SCH ×2 (10:00→22:09)
[2016-07-22] MEDS: NYSTATIN POWDER 100,000 UNITS/GM - 15 GM TOPICAL POWDER TP SCH (10:01)
--- NOTE | 2016-07-22 11:06 | PN ---
Teaching Attending Note Name of Resident: Lida Pretty ATTENDING PHYSICIAN STATEMENT I saw and evaluated the patient. I reviewed the resident's note and discussed the case with the resident. I agree with the resident's findings and plan as documented. SUBJECTIVE: no fever or chills, has R sided SEGURA , behind her R eye . x 3 weeks . no photophobia Had 3 bloody BMs yesterday ( bright red blood ) no abd pain today . cont to have numbness . OBJECTIVE: NAD. AAox3 CV: RRR, no MRG Lungs: minimal wheezing , good air entry . no crackles Ext : no edema Abd: soft, TTP in all quadrants gissell in epigastric area . no rebound , nl BS Neuro : strength 5/5 in upper and lower ext proximally and distally, sensation to light touch decreased on R side of body and face. EOMI , round ewual reactive pupils . reflexes 1+ knee jerk and biceps b/l ASSESSMENT AND PLAN: 46 y/o lady with h/o Asthma, HIV, anemia who presented with SOB and wheezing , Abd pain N/V and rectal bleed . She was found to have Asthma exacerbation 1- ASthma exacerbation : no evidence of PNA . Peak flow 280 today , not changed from yesterday - cont ALbuterol Nebs QID , and PRN - cont Advair . - check Peak flow daily - solu-Medrol BID, if needed can increase dose 2- New onset DM : glc now worse with steroids - SSI now - metformin at dc 3- metabolic acidosis with elevated AG. no clear source. ? lactic acidosis , unlikely DKA , no hx of ingestion . - will check ABG, lactic acid and repeat BMP stat . - check B hydroxy-buterate - depending on results of this will react - start IVF 4- Melena : likley due to upper GI bleed, from erosive gastritis in setting of steroids use. Lower GI bleed could be due to rectal fissure vs hemorrhoids vs rectal mass as rectal exam was significant for a pouch near rectum . CT scan on 07/08 showed mesentral density in L lower pelvis . unclear etiology - follow HB - spoke to Dr. Lawler , no plans for colonoscopy or EGD due to respiratory status - cont PPI - check CT scan of Abd, unfortunately can't give contrast - start srweoid cream on rectum 5- pyuria : has no sx , but diabetic. hold off Abx , but check urine cx 6- SEGURA, R sided numbness: unclear etiology . - will check CT scan of head - ESR - further investigation/mgt to follow 7- HIV : cont meds hold heparin
--- NOTE | 2016-07-22 11:14 | PN ---
GI Progress Note Subjective: discussed case with Dr Busby, patient had rectal bleeding and on a rectal examination the patient was noted to have severe rectal pain and possible rectal mass, patient continue to have SOB and atypical chest dori. She also was noted to have mesenteric inflammation on a ct done 06/2016. - Objective Vital Signs: Vital Signs Temperature 98.4 F 07/22/16 06:00 Pulse Rate 95 H 07/22/16 09:17 Respiratory Rate 20 07/22/16 06:00 Blood Pressure 157/87 07/22/16 06:00 O2 Sat by Pulse Oximetry (%) 98 07/22/16 09:17 Constitutional: Well Nourished, No Distress, Obese Eyes: Yes: Conjunctiva Clear HENT: Yes: Atraumatic Neck: Yes: Supple Respiratory: Yes: CTA Bilaterally ...Palpate: Yes: Soft, Tenderness (--diffuse). No: Firm/Rigid, Guarding, Hepatomegaly, Mass, Pulsatile Mass, Splenomegaly ...Percussion: Yes: Tympanitic Labs: CBC, BMP 07/22/16 03:55 07/22/16 03:55 INR, PTT INR 1.07 (0.82-1.09) 07/21/16 01:45 Assessment/Plan A> rectal bleeding R> will need colonoscopy She reports of unwitnessed melena. SHe will also will benefit from an EGD . Because of her underlying medical problems,both gi procedures will be done as an outpatient continue Protonix 40mg bid Reglan 5mg 30 min before meals Flagyl 250mg tid
[2016-07-22 11:34] LABS: CALCIUM 8.5 mg/dL (8.5-10.1); CREATININE 0.9 mg/dL (0.55-1.02)
[2016-07-22 11:51] LABS: ARTERIAL BLD GAS O2 SATURATION 98.3 % (90-98.9); ARTERIAL BLOOD GAS BASE EXCESS -4.5 meq/l (-2-2); ARTERIAL BLOOD GAS pH 7.35 (7.35-7.45)
[2016-07-22 11:52] LABS: ALLENS TEST POSITIVE; ART PUNCT SITE LEFT RADIAL; LPM/O2% 3L; PT. ON O2? YES; TYPE OF O2 NASAL
--- NOTE | 2016-07-22 12:05 | PN ---
Addendum entered and electronically signed by Lida Pretty RES 07/22/16 13: 33: add zosyn; ID consult Addendum entered and electronically signed by Lida Pretty RES 07/22/16 13: 32: lactic acidosis =4, will obtain CT chest and abd with and w/o contrast. boluc 500 cc fluid ns Original Note: Physical Exam: SUBJECTIVE: Patient seen and examined Patient resting in bed, NAD. afebrile and hemodynamically stable. Used CPAP at night, called hospitalist due to sob, was not hypoxic at the time but was anxious. was plaved on 2 L nc during the day. not hypoxinc on RA. 2 BM yesterday -solid but bright red blood. denies n/v. Abd pain still present, mostly epigastric. States her SOB slightly worsened, alleviated with nebs. Complains of R sided chronic h/a behind R eye, R sided whole body numbness and painful mass under chin that appeared yesterday, denies tooth ache. no cough. denies chest pain, f/c, diarrhea, dysuria. States LKMP was 3 w ago and the one befre that 3 mo ago. sexually active. Para 5 OBJECTIVE: Vital Signs Period Temp Pulse Resp BP Sys/So Pulse Ox Last 24 Hr 98.0 F-98.6 F 87-95 18-22 139-160/79-98 98-98 GENERAL: Awake, alert, and fully oriented, mildly irritated HEAD: Normal with no signs of trauma. small aprox 1x2 cm soft painful mass under chin. mildly red. EYES: extraocular movements intact, sclera anicteric, conjunctiva clear. No lid lag. EARS, NOSE, THROAT: Moist mucous membranes. NECK: submental and cervical lymphadenopathy, acanthosis nigricans LUNGS: b/l expiratory wheezing, diffusely restricted air movement , about the same as yesterday HEART: Regular rate and rhythm, normal S1 and S2 ABDOMEN: Soft, diffusely tender, not distended, normoactive bowel sounds, no guarding, no rebound, no masses. No hepatomegaly or splenomegaly. LOWER EXTREMITIES: warm, well-perfused. No calf tenderness. 1+ pitting edema. NEUROLOGICAL: Normal speech.Gait not observed. PSYCHIATRIC: Cooperative. Good eye contact. Appropriate mood and affect. SKIN: Warm, dry, lesions as above Laboratory Results - last 24 hr 07/21/16 07/21/16 07/22/16 16:26 22:01 03:55 WBC RBC Hgb Hct MCV MCHC RDW Plt Count MPV Puncture Site ABG pH ABG pCO2 at Pt Temp ABG pO2 at Pt Temp ABG HCO3 ABG O2 Sat (Measured) ABG O2 Content ABG Base Excess Rik Test O2 Delivery Device Oxygen Flow Rate PEEP Sodium 138 Potassium 4.5 Chloride 102 Carbon Dioxide 19 L Anion Gap 17 H BUN 18 Creatinine 1.2 H D POC Glucometer 127 165 Random Glucose 178 H Calcium 8.6 Phosphorus 3.1 Magnesium 2.1 Triglycerides Cholesterol Total LDL Cholesterol HDL Cholesterol 07/22/16 07/22/16 07/22/16 03:55 06:16 09:10 WBC 20.9 H RBC 5.11 Hgb 12.3 Hct 39.4 MCV 77.2 L MCHC 31.1 L RDW 17.4 H Plt Count 208 MPV 8.0 Puncture Site ABG pH ABG pCO2 at Pt Temp ABG pO2 at Pt Temp ABG HCO3 ABG O2 Sat (Measured) ABG O2 Content ABG Base Excess Rik Test O2 Delivery Device Oxygen Flow Rate PEEP Sodium 137 Potassium 4.0 Chloride 102 Carbon Dioxide 21 Anion Gap 14 BUN 18 Creatinine 0.9 D POC Glucometer 206 Random Glucose 133 H D Calcium 8.5 Phosphorus Magnesium Triglycerides 425 H Cholesterol 217 H Total LDL Cholesterol 125 H HDL Cholesterol 63 H 07/22/16 07/22/16 09:10 11:50 WBC RBC Hgb Hct MCV MCHC RDW Plt Count MPV Puncture Site Left radial ABG pH 7.35 ABG pCO2 at Pt Temp 36.9 ABG pO2 at Pt Temp 119.0 H D ABG HCO3 20.0 L ABG O2 Sat (Measured) 98.3 ABG O2 Content 17.0 ABG Base Excess -4.5 L Rik Test Positive O2 Delivery Device Nasal Oxygen Flow Rate 3l PEEP 0.0 Sodium Cancelled Potassium Cancelled Chloride Cancelled Carbon Dioxide Cancelled Anion Gap Cancelled BUN Cancelled Creatinine Cancelled POC Glucometer Random Glucose Cancelled Calcium Cancelled Phosphorus Magnesium Triglycerides Cholesterol Total LDL Cholesterol HDL Cholesterol Active Medications Generic Name Dose Route Start Last Admin Trade Name Freq PRN Reason Stop Dose Admin Acetaminophen 650 mg 07/21/16 05:33 07/22/16 05:28 Tylenol - PO 650 mg Q6H PRN Administration FEVER OR PAIN Albuterol Sulfate 1 amp 07/21/16 10:50 07/22/16 03:15 Ventolin 0.083% Nebulizer Soln - NEB 1 amp Q4H PRN Administration SHORT OF BREATH/WHEEZING Albuterol Sulfate 1 amp 07/21/16 11:00 07/22/16 11:00 Ventolin 0.083% Nebulizer Soln - NEB 1 amp Q6H BELLE Administration Hydrocortisone 1 applic 07/22/16 11:45 Anusol 2.5% Hc Cream - TP DAILY BELLE Pantoprazole Sodium 100 mls @ 200 mls/hr 07/21/16 11:00 07/22/16 10:00 Protonix 40mg Ivpb (Pre-Docked) IVPB 200 mls/hr BID BELLE Administration Sodium Chloride 1,000 mls @ 100 mls/hr 07/22/16 11:15 Normal Saline - IV ASDIR BELLE Insulin Aspart 1 vial 07/21/16 07:00 07/22/16 11:52 Novolog Vial Sliding Scale - SQ Not Given ACHS [facility] Protocol Methylprednisolone Sodium Succinate 40 mg 07/21/16 10:00 07/22/16 09:59 Solu-Medrol - IVPB 40 mg BID BELLE Administration Metoclopramide HCl 5 mg 07/22/16 11:30 Reglan - PO TIDAC BELLE Metronidazole 250 mg 07/22/16 14:00 Flagyl - PO TID BELLE Genvoya Tablet - 1 each 07/21/16 10:00 Patient Own Med PO DAILY BELLE Nystatin 1 applic 07/21/16 11:15 07/22/16 10:01 Nystop Powder - TP 1 applic DAILY BELLE Administration Ondansetron HCl 4 mg 07/21/16 04:18 07/22/16 05:29 Zofran Injection IVPB 4 mg Q6H PRN Administration NAUSEA Fluticasone/Salmeterol 1 puff 07/21/16 11:00 07/22/16 09:59 Advair 100mcg/50mcg - IH 1 puff BID BELLE Administration Zinc Oxide 1 applic 07/21/16 11:13 07/21/16 13:42 Desitin Diaper Rash Oint - TP 1 applic ASDIR PRN Administration HYGEINE ASSESSMENT/PLAN: CXR: unremarkable Repeat CXR unremarkable CT head p/d CT abd p/d ASSESSMENT/PLAN: 46 y/o F w/PMH of asthma, HIV (on genvoya), anemia, presents to ER with SOB and wheezing. Acute on chronic asthma exacerbation -Solumedrol IV 40 mg bid day 2 -albuterol q6h belle, q 4 prn -bipap use at night -imaging unremarkabel -advair -flu swab negative -2L NC -+ wheezes, no significant improvement yet Upper GIB -r/o gastritis -melena -occult blood + -history of steroid use w/o GI ppx -history of GERD, abd pain -H pylori test p/d -Gi appreciated, possible endoscopy when respiratory status improves -PPi IV 40 bid Chronic abd pain -likley gastritis, manage as above Rectal bleed -3 painful bloody BM yesterday -possible fissure vs mass (palpated at 6 o'clock) - test -CT abd/pelvis -hold hep Acute gastroenteritis -viral vs bacterial -zofran prn -diarrhea resolved -stool studies p/d DM -A1C 7.9 -BGM -sliding scale requiring 6 u coverage yesterday HLD/ high triglycerides -lipid panel: trig 425, cholest 217, ldl 125, hdl 63 -strart lipitor, fish oil Leukocytosis -karyn reactive due to steroids -trend New metabolic acidosis -recheck BMP, lactate, abg, esr DINA -Creat 1.2; resolved on repeat lab -ivf R sided numbness. headache -CT head HIV -genvoya -last CD4 534 Morbid obesity -f/u lipids -nutrition counseling PPX scd, ppi FEN NS @100 lytes stable diabetic diet Dispo: [facility] [place] Visit type - Emergency Visit Emergency Visit: Yes ED Registration Date: 07/21/16 Care time: The patient presented to the Emergency Department on the above date and was hospitalized for further evaluation of their emergent condition. - New Patient This patient is new to me today: No - Critical Care Critical Care patient: No - Discharge Referral Referred to [facility] No
[2016-07-22] MEDS: SODIUM CHLORIDE 1,000 ML IV SCH ×2 (12:11→12:48)
[2016-07-22] MEDS: METOCLOPRAMIDE HCL 10 MG TABLET (FP) PO SCH ×2 (12:12→16:32)
[2016-07-22] MEDS: HYDROCORTISONE 2.5% TOPICAL CREAM 30 GM TUBE TP SCH (12:52)
[2016-07-22] MEDS ORDERED: SODIUM CHLORIDE 500 ML IV STA ×2 (13:03→21:48)
[2016-07-22 13:25] LABS: CALCIUM 8.6 mg/dL (8.5-10.1); CREATININE 0.9 mg/dL (0.55-1.02)
[2016-07-22] MEDS ORDERED: PIPERACILLIN/TAZOB 3.375 GM 50 ML IVPB ONE ×2 (13:45→23:55)
[2016-07-22] MEDS: OMEGA-3 ACID ETHYL ESTERS (FATTY-ACIDS) 1 GM CAPSULE (FP) PO SCH ×2 (13:56→22:08)
[2016-07-22] MEDS: metroNIDAZOLE 250 MG TABLET PO SCH ×2 (13:56→22:07)
[2016-07-22] MEDS ORDERED: INSULIN SLIDING SCALE (NOVOLOG) 1 VIAL SQ SCH (16:30)
[2016-07-22] MEDS ORDERED: SODIUM CHLORIDE 1,000 ML IV STA (17:55)
[2016-07-22] MEDS ORDERED: PIPERACILLIN/TAZOB 3.375 GM 3.375 GM in DEXTROSE 5%-WATER - 50 ML IVPB ONE (17:58)
[2016-07-22] MEDS: ATORVASTATIN CA 20 MG TABLET (FP) PO SCH (22:07)
[2016-07-23] MEDS: SODIUM CHLORIDE 1,000 ML IV SCH ×3 (00:15→13:54)
[2016-07-23] MEDS: PIPERACILLIN/TAZOB 4.5 GM/100 ML PRE-DOCKED IVPB SCH ×3 (00:15→17:07)
[2016-07-23] MEDS ORDERED: SODIUM CHLORIDE 250 ML IV STA (04:08)
--- NOTE | 2016-07-23 04:15 | HOSP ---
Subjective - Review of Symptoms Events since last encounter: Got sign out from the resident to trend the lactic acid and to order IV Zosyn 4.5 Q8H after discussing with Dr. Vu. Lactic acid has been increasing despite Bolus of IV NS and IV NS running @ 100mls/hr. Worried to give too much fluid to avoid fluid overload condition. Trend of lactic acid since evenin.6--->5.4--->4.1----->5.2 A/P Patient is a 46 year old Female with significant PMH of asthma, HIV (on genvoya) , anemia, presented to the ED with SOB and wheezing admitted with the diagnosis of Asthma exacerbation. # Lactic acidosis most likely due to Genvoya. Despite fluid challenges and antibiotics, lactic acid is still on the rise. So suspect the use of nucleoside analogue to be the cause of lactic acidosis. Would consider changing the medication, have to discuss with ID. Although the CT scan of abdomen showed development of subcutaneous soft tissue stranding and cutaneous thickening is seen along the ventral pelvis bilaterally which could be on the basis of cellulitis. Highly doubt the cause of lactic acidosis is infection. If lactic acidosis was due to infection, it would resolve with fluids and antibiotics. To be discussed with Dr. Busby and Dr. Vu. Physical Examination Vital Signs: Vital Signs Temperature 98.5 F 07/23/16 02:35 Pulse Rate 78 07/23/16 02:35 Respiratory Rate 18 07/23/16 02:35 Blood Pressure 131/65 07/23/16 02:35 O2 Sat by Pulse Oximetry (%) 98 07/22/16 21:00 Labs: CBC, BMP 07/22/16 03:55 07/22/16 12:50 Visit type - Emergency Visit Emergency Visit: Yes ED Registration Date: 07/21/16 Care time: The patient presented to the Emergency Department on the above date and was hospitalized for further evaluation of their emergent condition. - New Patient This patient is new to me today: Yes Date on this admission: 07/23/16 - Critical Care Critical Care patient: No
[2016-07-23] MEDS: ACETAMINOPHEN 325 MG TABLET (FP) PO PRN (04:35)
[2016-07-23] MEDS: ONDANSETRON 4 MG/2 ML VIAL IVPB PRN (04:37)
[2016-07-23] MEDS: INSULIN SLIDING SCALE (NOVOLOG) 1 VIAL SQ SCH ×4 (06:08→21:31)
[2016-07-23] MEDS: metroNIDAZOLE 250 MG TABLET PO SCH ×3 (06:08→21:21)
[2016-07-23] MEDS: METOCLOPRAMIDE HCL 10 MG TABLET (FP) PO SCH ×3 (06:08→17:07)
[2016-07-23] MEDS: ALBUTEROL SO4 0.083% IH SOL 2.5 MG/3 ML VIAL.NEB. NEB SCH ×4 (06:38→22:30)
[2016-07-23 07:35] LABS: MCH 23.8 pg (25.7-33.7); MCHC 31.4 g/dl (32.0-36.0); MEAN CELL VOLUME 75.9 fl (80-96); MEAN PLT VOLUME 7.8 fl (7.5-11.1); PLATELET COUNT 167 K/MM3 (134-434); RDW 17.4 % (11.6-15.6); WHITE BLOOD COUNT 13.3 K/mm3 (4.0-10.0)
[2016-07-23] MEDS ORDERED: PIPERACILLIN/TAZOB 3.375 GM 50 ML IVPB ONE (08:00)
[2016-07-23 08:06] LABS: CALCIUM 7.9 mg/dL (8.5-10.1); CREATININE 0.8 mg/dL (0.55-1.02)
--- NOTE | 2016-07-23 08:34 | PN ---
Progress Note (short form) - Note Progress Note: Subjective: cont to have SEGURA , and pain in scalp ( R parietal ) , denies any fever ro chills, denies any diarrhea ,. has chronic abd pain which did not change . denies weakness , or tingling . has the chronic numbness in her R side . reports her breathing is better. over night and due to persistant lactic acid elevation she received 750 cc of NS as boluses. Objective: Vital Signs: Last Vital Signs Temp Pulse Resp BP Pulse Ox 98.3 F 80 18 148/66 98 07/23/16 06:00 07/23/16 06:00 07/23/16 06:00 07/23/16 06:00 07/22/16 21:00 I&O: Intake & Output 07/20/16 07/21/16 07/22/16 07/23/16 23:59 23:59 23:59 23:59 Intake Total 3705 3100 1550 Balance 3705 3100 1550 Weight 334 lb 3.2 oz Laboratory Results - last 24 hr 07/21/16 07/22/16 07/22/16 05:30 09:10 09:10 WBC RBC Hgb Hct MCV MCHC RDW Plt Count MPV ESR Puncture Site ABG pH ABG pCO2 at Pt Temp ABG pO2 at Pt Temp ABG HCO3 ABG O2 Sat (Measured) ABG O2 Content ABG Base Excess Rik Test O2 Delivery Device Oxygen Flow Rate PEEP Sodium 137 Cancelled Potassium 4.0 Cancelled Chloride 102 Cancelled Carbon Dioxide 21 Cancelled Anion Gap 14 Cancelled BUN 18 Cancelled Creatinine 0.9 D Cancelled POC Glucometer Random Glucose 133 H D Cancelled Lactic Acid Calcium 8.5 Cancelled Triglycerides 425 H Cholesterol 217 H Total LDL Cholesterol 125 H HDL Cholesterol 63 H Urine HCG, Qual Stool H. pylori Ag Negative 07/22/16 07/22/16 07/22/16 09:10 11:25 11:35 WBC RBC Hgb Hct MCV MCHC RDW Plt Count MPV ESR 10 Puncture Site ABG pH ABG pCO2 at Pt Temp ABG pO2 at Pt Temp ABG HCO3 ABG O2 Sat (Measured) ABG O2 Content ABG Base Excess Rik Test O2 Delivery Device Oxygen Flow Rate PEEP Sodium Potassium Chloride Carbon Dioxide Anion Gap BUN Creatinine POC Glucometer Random Glucose Lactic Acid 4.417 H* Calcium Triglycerides Cholesterol Total LDL Cholesterol HDL Cholesterol Urine HCG, Qual Negative Stool H. pylori Ag 07/22/16 07/22/16 07/22/16 11:50 11:51 12:50 WBC RBC Hgb Hct MCV MCHC RDW Plt Count MPV ESR Puncture Site Left radial ABG pH 7.35 ABG pCO2 at Pt Temp 36.9 ABG pO2 at Pt Temp 119.0 H D ABG HCO3 20.0 L ABG O2 Sat (Measured) 98.3 ABG O2 Content 17.0 ABG Base Excess -4.5 L Rik Test Positive O2 Delivery Device Nasal Oxygen Flow Rate 3l PEEP 0.0 Sodium 139 Potassium 4.5 Chloride 104 Carbon Dioxide 22 Anion Gap 13 BUN 17 Creatinine 0.9 POC Glucometer 138 Random Glucose 163 H D Lactic Acid Calcium 8.6 Triglycerides Cholesterol Total LDL Cholesterol HDL Cholesterol Urine HCG, Qual Stool H. pylori Ag 07/22/16 07/22/16 07/22/16 16:35 16:37 22:02 WBC RBC Hgb Hct MCV MCHC RDW Plt Count MPV ESR Puncture Site ABG pH ABG pCO2 at Pt Temp ABG pO2 at Pt Temp ABG HCO3 ABG O2 Sat (Measured) ABG O2 Content ABG Base Excess Rik Test O2 Delivery Device Oxygen Flow Rate PEEP Sodium Potassium Chloride Carbon Dioxide Anion Gap BUN Creatinine POC Glucometer 127 178 Random Glucose Lactic Acid 5.609 H* Calcium Triglycerides Cholesterol Total LDL Cholesterol HDL Cholesterol Urine HCG, Qual Stool H. pylori Ag 07/22/16 07/23/16 07/23/16 23:00 01:00 03:00 WBC RBC Hgb Hct MCV MCHC RDW Plt Count MPV ESR Puncture Site ABG pH ABG pCO2 at Pt Temp ABG pO2 at Pt Temp ABG HCO3 ABG O2 Sat (Measured) ABG O2 Content ABG Base Excess Rik Test O2 Delivery Device Oxygen Flow Rate PEEP Sodium Potassium Chloride Carbon Dioxide Anion Gap BUN Creatinine POC Glucometer Random Glucose Lactic Acid 5.444 H* 4.105 H* 5.234 H* Calcium Triglycerides Cholesterol Total LDL Cholesterol HDL Cholesterol Urine HCG, Qual Stool H. pylori Ag 07/23/16 07/23/16 07/23/16 06:02 06:15 06:15 WBC 13.3 H D RBC 4.80 Hgb 11.4 Hct 36.4 MCV 75.9 L MCHC 31.4 L RDW 17.4 H Plt Count 167 MPV 7.8 ESR Puncture Site ABG pH ABG pCO2 at Pt Temp ABG pO2 at Pt Temp ABG HCO3 ABG O2 Sat (Measured) ABG O2 Content ABG Base Excess Rik Test O2 Delivery Device Oxygen Flow Rate PEEP Sodium 141 Potassium 4.2 Chloride 106 Carbon Dioxide 22 Anion Gap 13 BUN 14 Creatinine 0.8 POC Glucometer 165 Random Glucose 148 H Lactic Acid Calcium 7.9 L Triglycerides Cholesterol Total LDL Cholesterol HDL Cholesterol Urine HCG, Qual Stool H. pylori Ag Physical Exam: NAD. AAox3 CV: RRR, no MRG Lungs: minimal wheezing , decreased air entry today . no crackles Ext: no edema Abd: soft, TTP in all quadrants gissell in epigastric area . no rebound , nl BS Neuro : strength 5/5 in upper and lower ext proximally and distally, sensation to light touch decreased on R side of body and face. EOMI , round equal reactive pupils . reflexes 1+ knee jerk and biceps b/l ASSESSMENT AND PLAN: 46 y/o lady with h/o Asthma, HIV, anemia who presented with SOB and wheezing , Abd pain N/V and rectal bleed . She was found to have Asthma exacerbation 1- ASthma exacerbation : no evidence of PNA . Peak flowpending today - cont ALbuterol Nebs QID , and PRN - cont Advair . - check Peak flow daily - increase solu-Medrol to TID 2- New onset DM: - SSI now - oral medications at dc 3-LActic acidosis: still investigating the source of lactic acid elevation. CT scan of adb showed stranding of lower abd wall. Although ,abd wall has edema , but there is no erythema or signs of infection. on old CTscan , stranding was there , but less prominent . I suspect her lactic acidosis is type B, due to multiple factors : HIV itself can cause chronic lactate elevation, Tenofovir ( black box warning ) , and Albuterol is reported to cause lactic acidosis . solid tumors can cause type B lactic acidosis - cont with IVF carefully now . - will ask pt not to take her HIV medication ( has not been in hospital ) - will continue albuterol as it is needed for asthma exa - will f/u with ID for need of ABx - CT scan did not show the mesentric density , seen on previous scan - urine cx pending as she has pyuria 4- GI bleed : Melena is likley due to upper GI bleed, from erosive gastritis in setting of steroids use. Lower GI bleed could be due to rectal fissure vs hemorrhoids vs rectal mass as rectal exam was significant for a pouch near rectum . - follow HB - spoke to Dr. Lawler , no plans for colonoscopy or EGD due to respiratory status - cont PPI - check CT scan of Abd, unfortunately can't give contrast - start srweoid cream on rectum 5- SEGURA, R sided numbness: unclear etiology . - CT scan of head with no etiology - ESR nl 6- HIV : cont meds Visit type - Emergency Visit Emergency Visit: Yes ED Registration Date: 07/21/16 Care time: The patient presented to the Emergency Department on the above date and was hospitalized for further evaluation of their emergent condition. - New Patient This patient is new to me today: No - Critical Care Critical Care patient: No
[2016-07-23] MEDS ORDERED: PT OWN MED DRAWER 7, Y5N ONE (10:07)
[2016-07-23] MEDS: NYSTATIN POWDER 100,000 UNITS/GM - 15 GM TOPICAL POWDER TP SCH (10:21)
[2016-07-23] MEDS: HYDROCORTISONE 2.5% TOPICAL CREAM 30 GM TUBE TP SCH (10:22)
[2016-07-23] MEDS: FLUTICASONE/SALMETEROL 100 MCG/50 MCG DISKUS IH SCH ×2 (10:22→21:22)
[2016-07-23] MEDS: OMEGA-3 ACID ETHYL ESTERS (FATTY-ACIDS) 1 GM CAPSULE (FP) PO SCH ×2 (10:24→21:21)
--- NOTE | 2016-07-23 10:33 | PN ---
Progress Note, Physician Chief Complaint: ID 46 year old female who I follow in the past for HIV. Taking Genvoya for several months and tolerating it well T cels Dec 2015 750 and PCR less then 20 copies. Readmitted now again after 13 days admission for same. Experiencing rectal bleeding episode here with abnormal rectal exam per PMD Incidental is abnormal lactic acid of 5 repeated 4 times yesterday No fever and no sign of infection Given empiric Zosyn though no clear source Uses CPAP at home. - Current Medication List Current Medications: Active Medications Acetaminophen (Tylenol -) 650 mg PO Q6H PRN PRN Reason: FEVER OR PAIN Last Admin: 07/23/16 04:35 Dose: 650 mg Albuterol Sulfate (Ventolin 0.083% Nebulizer Soln -) 1 amp NEB Q4H PRN PRN Reason: SHORT OF BREATH/WHEEZING Last Admin: 07/22/16 03:15 Dose: 1 amp Albuterol Sulfate (Ventolin 0.083% Nebulizer Soln -) 1 amp NEB Q6H KAREN Last Admin: 07/23/16 06:38 Dose: 1 amp Atorvastatin Calcium (Lipitor -) 20 mg PO HS KAREN Last Admin: 07/22/16 22:07 Dose: 20 mg Hydrocortisone (Anusol 2.5% Hc Cream -) 1 applic TP DAILY KAREN Last Admin: 07/23/16 10:22 Dose: 1 applic Pantoprazole Sodium (Protonix 40mg Ivpb (Pre-Docked)) 100 mls @ 200 mls/hr IVPB BID KAREN Last Admin: 07/22/16 22:09 Dose: 200 mls/hr Sodium Chloride (Normal Saline -) 1,000 mls @ 100 mls/hr IV ASDIR KAREN Last Admin: 07/23/16 00:15 Dose: 100 mls/hr Insulin Aspart (Novolog Vial Sliding Scale -) 1 vial SQ ACHS KAREN PRN Reason: Protocol Last Admin: 07/23/16 06:08 Dose: 2 units Methylprednisolone Sodium Succinate (Solu-Medrol -) 40 mg IVPB TID KAREN Metoclopramide HCl (Reglan -) 5 mg PO TIDAC KAREN Last Admin: 07/23/16 06:08 Dose: 5 mg Metronidazole (Flagyl -) 250 mg PO TID KAREN Last Admin: 07/23/16 06:08 Dose: 250 mg Nystatin (Nystop Powder -) 1 applic TP DAILY KAREN Last Admin: 07/23/16 10:21 Dose: 1 applic [id number] Ethyl Esters (Lovaza -) 2 gm PO BID KAREN Last Admin: 07/23/16 10:24 Dose: 2 gm Ondansetron HCl (Zofran Injection) 4 mg IVPB Q6H PRN PRN Reason: NAUSEA Last Admin: 07/23/16 04:37 Dose: 4 mg Piperacillin Sod/Tazobactam Sod (Zosyn 4.5gm Ivpb (Pre-Docked)) 4.5 gm IVPB Q8H -IV KAREN Last Admin: 07/23/16 10:25 Dose: 4.5 gm Fluticasone/Salmeterol (Advair 100mcg/50mcg -) 1 puff IH BID KAREN Last Admin: 07/23/16 10:22 Dose: 1 puff Zinc Oxide (Desitin Diaper Rash Oint -) 1 applic TP ASDIR PRN PRN Reason: HYGEINE Last Admin: 07/21/16 13:42 Dose: 1 applic - Objective Vital Signs: Vital Signs Temperature 98.3 F 07/23/16 09:04 Pulse Rate 94 H 07/23/16 09:04 Respiratory Rate 18 07/23/16 09:04 Blood Pressure 133/52 07/23/16 09:04 O2 Sat by Pulse Oximetry (%) 98 07/22/16 21:00 Constitutional: Yes: Other (morbid obesity) Neck: Yes: WNL, Supple Cardiovascular: Yes: S1, S2 Respiratory: Yes: WNL, Regular, CTA Bilaterally, Rhonchi. No: Wheezes Gastrointestinal: Yes: WNL, Normal Bowel Sounds, Soft, Other (No cellulitis). No: Tenderness, Tenderness, Rebound Extremities: No: Cold, Cool, Cyanosis Labs: CBC, BMP 07/23/16 06:15 07/23/16 06:15 INR, PTT INR 1.07 (0.82-1.09) 07/21/16 01:45 Assessment/Plan Microbiology Laboratory Tests 07/14/16 07/21/16 07/21/16 14:20 01:45 01:45 WBC Hgb Hct Plt Count INR 1.07 Puncture Site ABG pCO2 at Pt Temp ABG HCO3 Ur Leukocyte Esterase 2+ H Urine RBC 2 Urine WBC 12 Absolute CD4 [place] 197 L 03/25/17 03/26/17 11:50 06:15 WBC 13.3 H D Hgb 11.4 Hct 36.4 Plt Count 167 INR Puncture Site Left radial ABG pCO2 at Pt Temp 36.9 ABG HCO3 20.0 L Ur Leukocyte Esterase Urine RBC Urine WBC Absolute CD4 [place] Assessment HIV infection stable on meds Genvoya Severe asthma Isolated lactic acid level I do not feel this is due to sepsis nor would I stop her Lucinda whcih is critical for her HIV Culd lactic acid be related to her respiratory status Low T cells may in part be due to being will and or steroids Rectal bleeding Plan Advise stpping antibiotics and continue HIV med No need for multiple daily lactate levels at this time Horace NICHOLSON
[2016-07-23] MEDS: PANTOPRAZOLE SODIUM 100 ML IVPB SCH ×2 (11:50→21:22)
[2016-07-23] MEDS: methylPREDNISolone NA SUCC 40 MG/1 ML VIAL IVPB SCH ×2 (13:54→21:21)
[2016-07-23] MEDS: GENVOYA PO SCH (19:31)
[2016-07-23] MEDS: ATORVASTATIN CA 20 MG TABLET (FP) PO SCH (21:21)
[2016-07-24] MEDS: ONDANSETRON 4 MG/2 ML VIAL IVPB PRN (00:23)
[2016-07-24] MEDS: PIPERACILLIN/TAZOB 4.5 GM/100 ML PRE-DOCKED IVPB SCH (01:39)
[2016-07-24] MEDS: ACETAMINOPHEN 325 MG TABLET (FP) PO PRN (01:39)
[2016-07-24] MEDS: methylPREDNISolone NA SUCC 40 MG/1 ML VIAL IVPB SCH ×3 (05:42→21:27)
[2016-07-24] MEDS: metroNIDAZOLE 250 MG TABLET PO SCH (05:42)
[2016-07-24] MEDS: INSULIN SLIDING SCALE (NOVOLOG) 1 VIAL SQ SCH ×4 (06:02→21:32)
[2016-07-24] MEDS: METOCLOPRAMIDE HCL 10 MG TABLET (FP) PO SCH ×3 (06:03→16:42)
[2016-07-24] MEDS: ALBUTEROL SO4 0.083% IH SOL 2.5 MG/3 ML VIAL.NEB. NEB SCH ×5 (06:50→23:00)
[2016-07-24 07:38] LABS: BASOPHIL 0.1 % (0-2.0); MCH 24.1 pg (25.7-33.7); MCHC 31.6 g/dl (32.0-36.0); MEAN CELL VOLUME 76.3 fl (80-96); MEAN PLT VOLUME 7.9 fl (7.5-11.1); NEUTROPHILS 86.6 % (42.8-82.8); PLATELET COUNT 149 K/MM3 (134-434); RDW 17.2 % (11.6-15.6); WHITE BLOOD COUNT 13.6 K/mm3 (4.0-10.0)
[2016-07-24 07:54] LABS: CALCIUM 7.9 mg/dL (8.5-10.1); CREATININE 0.7 mg/dL (0.55-1.02); MAGNESIUM 2.2 mg/dL (1.8-2.4)
[2016-07-24] MEDS ORDERED: PT OWN MED DRAWER 7, Y5N ONE ×3 (10:51→14:28)
[2016-07-24] MEDS: PANTOPRAZOLE SODIUM 100 ML IVPB SCH ×2 (10:54→21:26)
[2016-07-24] MEDS: OMEGA-3 ACID ETHYL ESTERS (FATTY-ACIDS) 1 GM CAPSULE (FP) PO SCH ×2 (10:55→21:26)
[2016-07-24] MEDS: GENVOYA PO SCH (10:55)
[2016-07-24] MEDS: FLUTICASONE/SALMETEROL 100 MCG/50 MCG DISKUS IH SCH ×2 (10:55→21:27)
[2016-07-24] MEDS: NYSTATIN POWDER 100,000 UNITS/GM - 15 GM TOPICAL POWDER TP SCH (11:22)
[2016-07-24] MEDS: HYDROCORTISONE 2.5% TOPICAL CREAM 30 GM TUBE TP SCH (11:23)
--- NOTE | 2016-07-24 11:25 | PN ---
Progress Note, Physician Chief Complaint: ID Off antiibiotics Vague abd discomfort not pain - Current Medication List Current Medications: Active Medications Acetaminophen (Tylenol -) 650 mg PO Q6H PRN PRN Reason: FEVER OR PAIN Last Admin: 07/24/16 01:39 Dose: 650 mg Albuterol Sulfate (Ventolin 0.083% Nebulizer Soln -) 1 amp NEB Q4H PRN PRN Reason: SHORT OF BREATH/WHEEZING Last Admin: 07/22/16 03:15 Dose: 1 amp Albuterol Sulfate (Ventolin 0.083% Nebulizer Soln -) 1 amp NEB Q6H KAREN Last Admin: 07/24/16 11:11 Dose: 1 amp Atorvastatin Calcium (Lipitor -) 20 mg PO HS KAREN Last Admin: 07/23/16 21:21 Dose: 20 mg Hydrocortisone (Anusol 2.5% Hc Cream -) 1 applic TP DAILY KAREN Last Admin: 07/23/16 10:22 Dose: 1 applic Pantoprazole Sodium (Protonix 40mg Ivpb (Pre-Docked)) 100 mls @ 200 mls/hr IVPB BID KAREN Last Admin: 07/24/16 10:54 Dose: 200 mls/hr Sodium Chloride (Normal Saline -) 1,000 mls @ 50 mls/hr IV ASDIR KAREN Last Admin: 07/23/16 13:54 Dose: 50 mls/hr Insulin Aspart (Novolog Vial Sliding Scale -) 1 vial SQ ACHS KAREN PRN Reason: Protocol Last Admin: 07/24/16 06:02 Dose: Not Given Methylprednisolone Sodium Succinate (Solu-Medrol -) 40 mg IVPB TID KAREN Last Admin: 07/24/16 05:42 Dose: 40 mg Metoclopramide HCl (Reglan -) 5 mg PO TIDAC KAREN Last Admin: 07/24/16 10:54 Dose: 5 mg Genvoya-Patient's Own Medication (Non- Formulary) 1 each PO DAILY KAREN Last Admin: 07/24/16 10:55 Dose: 1 each Nystatin (Nystop Powder -) 1 applic TP DAILY KAREN Last Admin: 07/23/16 10:21 Dose: 1 applic [id number]-9-Vukt Ethyl Esters (Lovaza -) 2 gm PO BID KAREN Last Admin: 07/24/16 10:55 Dose: 2 gm Ondansetron HCl (Zofran Injection) 4 mg IVPB Q6H PRN PRN Reason: NAUSEA Last Admin: 07/24/16 00:23 Dose: 4 mg Fluticasone/Salmeterol (Advair 100mcg/50mcg -) 1 puff IH BID KAREN Last Admin: 07/24/16 10:55 Dose: 1 puff Zinc Oxide (Desitin Diaper Rash Oint -) 1 applic TP ASDIR PRN PRN Reason: HYGEINE Last Admin: 07/21/16 13:42 Dose: 1 applic - Objective Vital Signs: Vital Signs Temperature 97.9 F 07/24/16 10:48 Pulse Rate 100 H 07/24/16 10:48 Respiratory Rate 20 07/24/16 10:48 Blood Pressure 135/80 07/24/16 10:48 O2 Sat by Pulse Oximetry (%) 97 07/24/16 10:12 Constitutional: Yes: Obese Neck: Yes: WNL, Supple Cardiovascular: Yes: WNL, Regular Rate and Rhythm, Bradycardia Respiratory: Yes: WNL, Regular, CTA Bilaterally. No: Rales, Rhonchi Gastrointestinal: Yes: Soft. No: Tenderness Edema: Yes Labs: CBC, BMP 07/24/16 06:30 07/24/16 06:30 INR, PTT INR 1.07 (0.82-1.09) 07/21/16 01:45 Assessment/Plan Laboratory Tests 07/22/16 07/23/16 07/24/16 11:50 13:35 06:30 WBC 13.6 H Plt Count 149 ABG pH 7.35 ABG pO2 at Pt Temp 119.0 H D Lactic Acid 4.132 H* 07/24/16 06:30 WBC Plt Count ABG pH ABG pO2 at Pt Temp Lactic Acid 3.877 H* Assessment Asthma HIV on Genvoya Elevated lactic acid ? etiology Plan While lactic acidosis used to be seen in the old days of HIV infection( ) with Zerit and Videx IT would be almost unheard of given her current medication regimen though mentioned in the drug insert info She will continue HIV meds as before which she has been on for years without complications Discharge per primary care service with out pt follow up Admittedly unsure why the elevation but would continue ART for now I do not see signs of sepsis IT is less the then 5 and down Horace NICHOLSON
[2016-07-24] MEDS ORDERED: INSULIN (NOVOLOG) ASPART 100 UNITS/ML 10ML VIAL ONE ×4 (11:33→20:57)
--- NOTE | 2016-07-24 14:18 | PN ---
Physical Exam: SUBJECTIVE: Patient seen and examined Patient resting in bed, NAD. afebrile and hemodynamically stable. PAP overnight , states she feels claustrophobic in it. On 3 L nc during the day. Solid nonbloody BM today, slightly painful. yesterday BM a little bit of blood. denies n/v. Abd pain still present, mostly epigastric. States her SOB is slightly improved, alleviated with nebs. denies chest pain, f/c, diarrhea, dysuria. States she stopped taking her HIV meds for 3 w in may due to financial issues. OBJECTIVE: Vital Signs Period Temp Pulse Resp BP Sys/So Pulse Ox Last 24 Hr 97.8 F-98.7 F 70-132 20-22 122-147/51-87 97-97 GENERAL: Awake, alert, and fully oriented, mildly irritated HEAD: Normal with no signs of trauma. EYES: extraocular movements intact, sclera anicteric, conjunctiva clear. No lid lag. EARS, NOSE, THROAT: Moist mucous membranes. NECK: submental and cervical lymphadenopathy, acanthosis nigricans LUNGS: diffusely restricted air movement, no wheezes, better. HEART: Regular rate and rhythm, normal S1 and S2 ABDOMEN: Soft, diffusely tender, not distended, normoactive bowel sounds, no guarding, no rebound, no masses. No hepatomegaly or splenomegaly. LOWER EXTREMITIES: warm, well-perfused. No calf tenderness. trace edema. NEUROLOGICAL: Normal speech.Gait not observed. PSYCHIATRIC: Cooperative. Good eye contact. Appropriate mood and affect. SKIN: Warm, dry, lesions as above Laboratory Results - last 24 hr 07/23/16 07/23/16 07/23/16 06:15 13:35 17:06 WBC RBC Hgb Hct MCV MCHC RDW Plt Count MPV Neutrophils % Lymphocytes % Monocytes % Eosinophils % Basophils % Sodium Potassium Chloride Carbon Dioxide Anion Gap BUN Creatinine POC Glucometer 153 Random Glucose Lactic Acid 4.132 H* Calcium Phosphorus Magnesium Creatine Kinase 75 Total Amylase 07/23/16 07/24/16 07/24/16 21:30 05:41 06:30 WBC 13.6 H RBC 4.72 Hgb 11.4 Hct 36.0 MCV 76.3 L MCHC 31.6 L RDW 17.2 H Plt Count 149 MPV 7.9 Neutrophils % 86.6 H Lymphocytes % 9.8 D Monocytes % 3.5 L Eosinophils % 0.0 Basophils % 0.1 Sodium Potassium Chloride Carbon Dioxide Anion Gap BUN Creatinine POC Glucometer 143 144 Random Glucose Lactic Acid Calcium Phosphorus Magnesium Creatine Kinase Total Amylase 07/24/16 07/24/16 07/24/16 06:30 06:30 06:30 WBC RBC Hgb Hct MCV MCHC RDW Plt Count MPV Neutrophils % Lymphocytes % Monocytes % Eosinophils % Basophils % Sodium 141 Potassium 4.1 Chloride 103 Carbon Dioxide 24 Anion Gap 14 BUN 13 Creatinine 0.7 POC Glucometer Random Glucose 149 H Lactic Acid 3.877 H* Calcium 7.9 L Phosphorus 3.0 Magnesium 2.2 Creatine Kinase Total Amylase 23 L Cancelled 07/24/16 07/24/16 11:31 11:37 WBC RBC Hgb Hct MCV MCHC RDW Plt Count MPV Neutrophils % Lymphocytes % Monocytes % Eosinophils % Basophils % Sodium Potassium Chloride Carbon Dioxide Anion Gap BUN Creatinine POC Glucometer 189 159 Random Glucose Lactic Acid Calcium Phosphorus Magnesium Creatine Kinase Total Amylase Active Medications Generic Name Dose Route Start Last Admin Trade Name Freq PRN Reason Stop Dose Admin Acetaminophen 650 mg 07/21/16 05:33 07/24/16 01:39 Tylenol - PO 650 mg Q6H PRN Administration FEVER OR PAIN Albuterol Sulfate 1 amp 07/21/16 10:50 07/22/16 03:15 Ventolin 0.083% Nebulizer Soln - NEB 1 amp Q4H PRN Administration SHORT OF BREATH/WHEEZING Albuterol Sulfate 1 amp 07/21/16 11:00 07/24/16 11:11 Ventolin 0.083% Nebulizer Soln - NEB 1 amp Q6H BELLE Administration Atorvastatin Calcium 20 mg 07/22/16 22:00 07/23/16 21:21 Lipitor - PO 20 mg HS BELLE Administration Hydrocortisone 1 applic 07/22/16 13:00 07/24/16 11:23 Anusol 2.5% Hc Cream - TP 1 applic DAILY BELLE Administration Pantoprazole Sodium 100 mls @ 200 mls/hr 07/21/16 11:00 07/24/16 10:54 Protonix 40mg Ivpb (Pre-Docked) IVPB 200 mls/hr BID BELLE Administration Sodium Chloride 1,000 mls @ 50 mls/hr 07/23/16 13:15 07/23/16 13:54 Normal Saline - IV 50 mls/hr ASDIR BELLE Administration Insulin Aspart 1 vial 07/22/16 16:30 07/24/16 11:33 Novolog Vial Sliding Scale - SQ 2 units ACHS BELLE Administration Protocol Methylprednisolone Sodium Succinate 40 mg 07/23/16 14:00 07/24/16 05:42 Solu-Medrol - IVPB 40 mg TID BELLE Administration Metoclopramide HCl 5 mg 07/22/16 11:30 07/24/16 10:54 Reglan - PO 5 mg TIDAC BELLE Administration Genvoya-Patient's 1 each 07/23/16 20:00 07/24/16 10:55 Own Medication (Non- PO 1 each Formulary) DAILY BELLE Administration Nystatin 1 applic 07/21/16 11:15 07/24/16 11:22 Nystop Powder - TP 1 applic DAILY BELLE Administration [id number]-5-[id number] Ethyl Esters 2 gm 07/22/16 12:45 07/24/16 10:55 Lovaza - PO 2 gm BID BELLE Administration Ondansetron HCl 4 mg 07/21/16 04:18 07/24/16 00:23 Zofran Injection IVPB 4 mg Q6H PRN Administration NAUSEA Fluticasone/Salmeterol 1 puff 07/21/16 11:00 07/24/16 10:55 Advair 100mcg/50mcg - IH 1 puff BID BELLE Administration Zinc Oxide 1 applic 07/21/16 11:13 07/21/16 13:42 Desitin Diaper Rash Oint - TP 1 applic ASDIR PRN Administration HYGEINE ASSESSMENT/PLAN: CXR: unremarkable Repeat CXR unremarkable CT head negative CT w and w/o contrast abd negative CT w and w/o contrast Chest negative ASSESSMENT/PLAN: 46 y/o F w/PMH of asthma, HIV (on genvoya), anemia, presents to ER with SOB and wheezing. Acute on chronic asthma exacerbation -Solumedrol IV 40 mg tid day 2 -albuterol q6h belle, q 4 prn -bipap use at night -imaging unremarkable -advair -flu swab negative -3L NC -No wheezes, slight clinical improvement Upper GIB -r/o gastritis -self reported melena -occult blood + -history of steroid use w/o GI ppx -history of GERD, abd pain -H pylori test negative -Gi appreciated, possible endoscopy when respiratory status improves -PPi IV 40 bid Chronic abd pain -likley gastritis, manage as above Rectal bleed -resolved -possible fissure vs hemorrhoid(palpated at 6 o'clock) -CT abd/pelvis unremarkable -hold hep Acute gastroenteritis -viral vs bacterial -zofran prn -diarrhea resolved -stool studies negative DM -A1C 7.9 -BGM -sliding scale requiring 4 u coverage yesterday HLD/ high triglycerides -lipid panel: trig 425, cholest 217, ldl 125, hdl 63 -lipitor, fish oil Leukocytosis -likley reactive due to steroids -trending down Persistent lactic acidosis -trending down with IVF -Likely type B (many possible causes) -ID consult appreciated: unlikely infectious or due to HIV/HIV meds -does not require abx DINA -Creat 0.7; resolved -IVF R sided numbness. headache -CT head unremarkable HIV -genvoya -last CD4 187 Morbid obesity -f/u lipids -nutrition counseling PPX scd, ppi FEN NS @50 lytes stable diabetic diet Dispo: [facility] [place] Visit type - Emergency Visit Emergency Visit: Yes ED Registration Date: 07/21/16 Care time: The patient presented to the Emergency Department on the above date and was hospitalized for further evaluation of their emergent condition. - New Patient This patient is new to me today: No - Critical Care Critical Care patient: No - Discharge Referral Referred to [facility] Med P.C.: No
[2016-07-24] MEDS: SODIUM CHLORIDE 1,000 ML IV SCH (16:38)
--- NOTE | 2016-07-24 17:13 | PN ---
Teaching Attending Note Name of Resident: Lida Pretty ATTENDING PHYSICIAN STATEMENT I saw and evaluated the patient. I reviewed the resident's note and discussed the case with the resident. I agree with the resident's findings and plan as documented. SUBJECTIVE: no fever or chills, her breathing is a little better. chronic abd pain . had a non bloody BM today OBJECTIVE: NAD. CV: RRR, no MRG Lungs: improved air entry , but no Ext: no edema ASSESSMENT AND PLAN: 46 y/o lady with h/o Asthma, HIV, anemia who presented with SOB and wheezing , Abd pain N/V and rectal bleed . She was found to have Asthma exacerbation 1- ASthma exacerbation : no evidence of PNA . Peak flow 300 today - cont ALbuterol Nebs QID , and PRN - cont Advair . - check Peak flow daily - cont solu-Medrol day 2 on 40 TID 2- New onset DM: - SSI now - oral medications at dc 3-Lactic acidosis: Type B . no infectious etiology found . Probably her ALbuterol Nebs are contributing . Other factors too - cont low dose IVF. will dc tomorrow - no need for ABx 4- GI bleed :melena due to probably gastritisa . BRBPR probably due to hemorrhoids or fissure - EGD and colono as out pt - f/u with Dr. Helton - cont steroid cream 5- SEGURA, R sided numbness: unclear etiology. - CT scan of head with no etiology - ESR nl - f/u as out pt 6- HIV : cont Genvoya HLOC
[2016-07-24] MEDS: ATORVASTATIN CA 20 MG TABLET (FP) PO SCH (21:26)
[2016-07-25] MEDS: ONDANSETRON 4 MG/2 ML VIAL IVPB PRN ×3 (00:14→13:59)
[2016-07-25] MEDS: ACETAMINOPHEN 325 MG TABLET (FP) PO PRN ×3 (01:55→21:19)
--- NOTE | 2016-07-25 02:40 | HOSP ---
Subjective - Review of Symptoms Events since last encounter: Paged at approximately 12:30 am to see patient who complained of new onset redness on upper abd/under R breast. Before examining pt I asked if she would like a back tacker before I examined her and she denied wanting a back tacker. Pt stated that she did not scratch herself and only noticed the redness earlier today. She feels like it is burning. On examination the there is a red linear site of inflammation from under R breast/upper abd that goes towards L breast that is approximately 6 inches in length. The site is clean, dry, skin intact with no signs of infection w/ some warmth in the area. I explained to patient that it does not look like it is an infection and that she may apply some lotion to it for now and watch it until the morning. Physical Examination Vital Signs: Vital Signs Temperature 98.2 F 07/24/16 22:00 Pulse Rate 97 H 07/24/16 23:42 Respiratory Rate 18 07/24/16 22:00 Blood Pressure 142/88 07/24/16 22:00 O2 Sat by Pulse Oximetry (%) 98 07/24/16 23:42 Labs: CBC, BMP 07/24/16 06:30 07/24/16 06:30 Visit type - Emergency Visit Emergency Visit: Yes ED Registration Date: 07/21/16 Care time: The patient presented to the Emergency Department on the above date and was hospitalized for further evaluation of their emergent condition. - New Patient This patient is new to me today: No - Critical Care Critical Care patient: No
[2016-07-25] MEDS: methylPREDNISolone NA SUCC 40 MG/1 ML VIAL IVPB SCH ×3 (06:01→21:18)
[2016-07-25] MEDS: INSULIN SLIDING SCALE (NOVOLOG) 1 VIAL SQ SCH ×4 (06:03→21:31)
[2016-07-25] MEDS: ALBUTEROL SO4 0.083% IH SOL 2.5 MG/3 ML VIAL.NEB. NEB SCH ×4 (06:04→23:09)
[2016-07-25] MEDS: METOCLOPRAMIDE HCL 10 MG TABLET (FP) PO SCH ×3 (06:56→17:05)
[2016-07-25 08:33] LABS: MCH 23.9 pg (25.7-33.7); MCHC 31.1 g/dl (32.0-36.0); MEAN CELL VOLUME 76.8 fl (80-96); MEAN PLT VOLUME 8.3 fl (7.5-11.1); RDW 18.4 % (11.6-15.6); WHITE BLOOD COUNT 13.6 K/mm3 (4.0-10.0)
[2016-07-25 10:07] LABS: CALCIUM 8.5 mg/dL (8.5-10.1); CREATININE 0.8 mg/dL (0.55-1.02); MAGNESIUM 2.1 mg/dL (1.8-2.4); PHOSPHOROUS 2.2 mg/dL (2.5-4.9)
[2016-07-25] MEDS ORDERED: PT OWN MED DRAWER 7, Y5N ONE (10:19)
[2016-07-25] MEDS: OMEGA-3 ACID ETHYL ESTERS (FATTY-ACIDS) 1 GM CAPSULE (FP) PO SCH ×2 (10:22→21:18)
[2016-07-25] MEDS: FLUTICASONE/SALMETEROL 100 MCG/50 MCG DISKUS IH SCH ×2 (10:22→21:19)
[2016-07-25] MEDS: GENVOYA PO SCH (10:23)
[2016-07-25] MEDS: PANTOPRAZOLE SODIUM 100 ML IVPB SCH ×2 (10:25→21:19)
[2016-07-25 10:55] LABS: MCH 23.8 pg (25.7-33.7); MEAN CELL VOLUME 76.8 fl (80-96); MEAN PLT VOLUME 7.6 fl (7.5-11.1); PLATELET COUNT 142 K/MM3 (134-434); RDW 17.9 % (11.6-15.6); WHITE BLOOD COUNT 14.7 K/mm3 (4.0-10.0)
[2016-07-25] MEDS: NYSTATIN POWDER 100,000 UNITS/GM - 15 GM TOPICAL POWDER TP SCH (10:57)
[2016-07-25] MEDS: HYDROCORTISONE 2.5% TOPICAL CREAM 30 GM TUBE TP SCH (10:58)
[2016-07-25] MEDS: SODIUM CHLORIDE 1,000 ML IV SCH ×2 (13:15→21:19)
--- NOTE | 2016-07-25 14:22 | PN ---
Physical Exam: SUBJECTIVE: Patient seen and examined Patient resting in bed, NAD. afebrile and hemodynamically stable. Multiple complaints of skin irritation overnight, resolved with lotion. On 3 L nc during the day. States her breathing has improved. Solid bloody BM yesterday, witnessed by nurse. Still has R sided numbness and epigastric abd pain. denies chest pain, f/c, diarrhea, dysuria. OBJECTIVE: Vital Signs Period Temp Pulse Resp BP Sys/So Pulse Ox Last 24 Hr 97.5 F-98.6 F 75-97 16-24 142-155/80-90 98-98 GENERAL: Awake, alert, and fully oriented, mildly irritated HEAD: Normal with no signs of trauma. EYES: extraocular movements intact, sclera anicteric, conjunctiva clear. No lid lag. EARS, NOSE, THROAT: Moist mucous membranes. NECK: submental and cervical lymphadenopathy, acanthosis nigricans LUNGS: better air movement, mild wheezes HEART: Regular rate and rhythm, normal S1 and S2 ABDOMEN: Soft, diffusely tender, not distended, normoactive bowel sounds, no guarding, no rebound, no masses. No hepatomegaly or splenomegaly. LOWER EXTREMITIES: warm, well-perfused. No calf tenderness. trace edema. NEUROLOGICAL: Normal speech. Gait not observed. PSYCHIATRIC: Cooperative. Good eye contact. Appropriate mood and affect. SKIN: Warm, dry, small scratch under R breast, no cellulitis. small area of redness under chin near a protuberance of her nasal cannula . Laboratory Results - last 24 hr 07/24/16 07/24/16 07/25/16 16:21 21:31 06:00 WBC RBC Hgb Hct MCV MCHC RDW Plt Count MPV Sodium Potassium Chloride Carbon Dioxide Anion Gap BUN Creatinine POC Glucometer 200 230 200 Random Glucose Lactic Acid Calcium Phosphorus Magnesium 07/25/16 07/25/16 07/25/16 07:00 07:00 07:00 WBC 13.6 H RBC 4.87 Hgb 11.6 Hct 37.4 MCV 76.8 L MCHC 31.1 L RDW 18.4 H Plt Count No Result Required. MPV 8.3 Sodium 141 Potassium 4.0 Chloride 103 Carbon Dioxide 22 Anion Gap 16 BUN 14 Creatinine 0.8 POC Glucometer Random Glucose 165 H Lactic Acid 4.435 H* Calcium 8.5 Phosphorus 2.2 L D Magnesium 2.1 07/25/16 07/25/16 10:30 11:39 WBC 14.7 H RBC 4.78 Hgb 11.4 Hct 36.7 MCV 76.8 L MCHC 31.0 L RDW 17.9 H Plt Count 142 MPV 7.6 Sodium Potassium Chloride Carbon Dioxide Anion Gap BUN Creatinine POC Glucometer 163 Random Glucose Lactic Acid Calcium Phosphorus Magnesium Active Medications Generic Name Dose Route Start Last Admin Trade Name Freq PRN Reason Stop Dose Admin Acetaminophen 650 mg 07/21/16 05:33 07/25/16 11:02 Tylenol - PO 650 mg Q6H PRN Administration FEVER OR PAIN Albuterol Sulfate 1 amp 07/21/16 10:50 07/22/16 03:15 Ventolin 0.083% Nebulizer Soln - NEB 1 amp Q4H PRN Administration SHORT OF BREATH/WHEEZING Albuterol Sulfate 1 amp 07/25/16 00:00 07/25/16 11:00 Ventolin 0.083% Nebulizer Soln - NEB 1 amp Q6HPO BELLE Administration Atorvastatin Calcium 20 mg 07/22/16 22:00 07/24/16 21:26 Lipitor - PO 20 mg HS BELLE Administration Hydrocortisone 1 applic 07/22/16 13:00 07/25/16 10:58 Anusol 2.5% Hc Cream - TP 1 applic DAILY BELLE Administration Pantoprazole Sodium 100 mls @ 200 mls/hr 07/21/16 11:00 07/25/16 10:25 Protonix 40mg Ivpb (Pre-Docked) IVPB 200 mls/hr BID BELLE Administration Sodium Chloride 1,000 mls @ 50 mls/hr 07/23/16 13:15 07/24/16 16:38 Normal Saline - IV 50 mls/hr ASDIR BELLE Administration Insulin Aspart 1 vial 07/22/16 16:30 07/25/16 11:39 Novolog Vial Sliding Scale - SQ 2 units ACHS BELLE Administration Protocol Methylprednisolone Sodium Succinate 40 mg 07/23/16 14:00 07/25/16 06:01 Solu-Medrol - IVPB 40 mg TID BELLE Administration Metoclopramide HCl 5 mg 07/22/16 11:30 07/25/16 10:58 Reglan - PO 5 mg TIDAC BELLE Administration Genvoya-Patient's 1 each 07/23/16 20:00 07/25/16 10:23 Own Medication (Non- PO 1 each Formulary) DAILY BELLE Administration Nystatin 1 applic 07/21/16 11:15 07/25/16 10:57 Nystop Powder - TP 1 applic DAILY BELLE Administration Pjchy-3-Btpi Ethyl Esters 2 gm 07/22/16 12:45 07/25/16 10:22 Lovaza - PO 2 gm BID BELLE Administration Ondansetron HCl 4 mg 07/21/16 04:18 07/25/16 13:59 Zofran Injection IVPB 4 mg Q6H PRN Administration NAUSEA Fluticasone/Salmeterol 1 puff 07/21/16 11:00 07/25/16 10:22 Advair 100mcg/50mcg - IH 1 puff BID BELLE Administration Zinc Oxide 1 applic 07/21/16 11:13 07/21/16 13:42 Desitin Diaper Rash Oint - TP 1 applic ASDIR PRN Administration HYGEINE ASSESSMENT/PLAN: CXR: unremarkable Repeat CXR unremarkable CT head negative CT w and w/o contrast abd negative CT w and w/o contrast Chest negative ASSESSMENT/PLAN: 46 y/o F w/PMH of asthma, HIV (on genvoya), anemia, presents to ER with SOB and wheezing. Acute on chronic asthma exacerbation -Solumedrol IV 40 mg BID -albuterol q6h belle, q 4 prn -bipap use at night -imaging unremarkable -advair -flu swab negative -3L NC -clinical improvement but below baseline Upper GIB -r/o gastritis -self reported melena -occult blood + -history of steroid use w/o GI ppx -history of GERD, abd pain -H pylori test negative -Gi appreciated, possible endoscopy when respiratory status improves -PPi IV 40 bid Chronic abd pain -likley gastritis, manage as above Rectal bleed -bloody bm yesterday -possible fissure vs hemorrhoid(palpated at 6 o'clock) -CT abd/pelvis unremarkable -hold hep -h/h stable Acute gastroenteritis -viral vs bacterial -resolved -stool studies negative DM -A1C 7.9 -BGM -sliding scale HLD/ high triglycerides -lipid panel: trig 425, cholest 217, ldl 125, hdl 63 -lipitor, fish oil Leukocytosis -likley reactive due to steroids Persistent lactic acidosis -4.4 today, appears to be her baseline -Likely type B (many possible causes) -ID consult appreciated: unlikely infectious or due to HIV/HIV meds -does not require abx -NS @ 50 DINA -Creat 0.7; resolved -IVF R sided numbness. headache -CT head unremarkable HIV -genvoya -last CD4 187 Morbid obesity -f/u lipids -nutrition counseling PPX scd, ppi FEN NS @50 lytes stable diabetic diet Dispo: [facility] [place] Visit type - Emergency Visit Emergency Visit: Yes ED Registration Date: 07/21/16 Care time: The patient presented to the Emergency Department on the above date and was hospitalized for further evaluation of their emergent condition. - New Patient This patient is new to me today: No - Critical Care Critical Care patient: No - Discharge Referral Referred to [facility] Med P.C.: No
--- NOTE | 2016-07-25 15:40 | PN ---
Progress Note (short form) - Note Progress Note: normal BM today no bleeding vague abdominal discomfort for several months breathing improved Vital Signs Period Temp Pulse Resp BP Sys/So Pulse Ox Last 24 Hr 97.5 F-98.6 F 75-97 16-24 142-155/80-90 98-98 cor-rrr lungs decreased bs at bases abd soft,nt ext trace edema CBC, BMP 07/25/16 10:30 07/25/16 07:00 Microbiology 07/22/16 14:20 Blood - Peripheral Venous Blood Culture - Preliminary NO GROWTH OBTAINED AFTER 72 HOURS, INCUBATION TO CONTINUE FOR 2 DAYS. 07/22/16 14:10 Blood - Peripheral Venous Blood Culture - Preliminary NO GROWTH OBTAINED AFTER 72 HOURS, INCUBATION TO CONTINUE FOR 2 DAYS. 07/21/16 13:30 Nasopharyngeal Swab Respiratory Virus Panel - Preliminary 07/21/16 05:30 Stool Salmonella/Shigella Culture - Final NO GROWTH OF SALMONELLA OR SHIGELLA SPECIES OBTAINED 07/21/16 05:30 Stool Campylobacter Culture - Final NO GROWTH OF CAMPYLOBACTER SPECIES OBTAINED 07/21/16 05:30 Stool Yersinia Culture - Final NO GROWTH OF YERSINIA SPECIES OBTAINED 07/21/16 05:30 Stool Vibrio Culture - Final NO GROWTH OF VIBRIO SPECIES OBTAINED 07/21/16 05:30 Stool Escherichia coli 0157 Culture - Final NO GROWTH OF E COLI 0157 OBTAINED 07/21/16 18:45 Urine - Urine Clean Catch Urine Culture - Final 07/21/16 21:00 Stool Clostridium difficile Antigen (CHANCE) - Final 07/21/16 21:00 Stool Clostridium difficile Toxin Assay - Final 07/21/16 05:30 Stool Gram Stain - Final 07/21/16 14:30 Nasopharyngeal Swab Influenza Types A,B Antigen (CHANCE) - Final 07/21/16 14:30 Nasopharyngeal Swab - Final Current Medications Acetaminophen (Tylenol -) 650 mg PO Q6H PRN PRN Reason: FEVER OR PAIN Last Admin: 07/25/16 11:02 Dose: 650 mg Albuterol Sulfate (Ventolin 0.083% Nebulizer Soln -) 1 amp NEB Q4H PRN PRN Reason: SHORT OF BREATH/WHEEZING Last Admin: 07/22/16 03:15 Dose: 1 amp Albuterol Sulfate (Ventolin 0.083% Nebulizer Soln -) 1 amp NEB Q6HPO KAREN Last Admin: 07/25/16 11:00 Dose: 1 amp Atorvastatin Calcium (Lipitor -) 20 mg PO HS KAREN Last Admin: 07/24/16 21:26 Dose: 20 mg Hydrocortisone (Anusol 2.5% Hc Cream -) 1 applic TP DAILY KAREN Last Admin: 07/25/16 10:58 Dose: 1 applic Pantoprazole Sodium (Protonix 40mg Ivpb (Pre-Docked)) 100 mls @ 200 mls/hr IVPB BID KAREN Last Admin: 07/25/16 10:25 Dose: 200 mls/hr Sodium Chloride (Normal Saline -) 1,000 mls @ 50 mls/hr IV ASDIR KAREN Last Admin: 07/25/16 13:15 Dose: Not Given Insulin Aspart (Novolog Vial Sliding Scale -) 1 vial SQ ACHS KAREN PRN Reason: Protocol Last Admin: 07/25/16 11:39 Dose: 2 units Methylprednisolone Sodium Succinate (Solu-Medrol -) 40 mg IVPB BID [facility] Metoclopramide HCl (Reglan -) 5 mg PO TIDAC [facility] Last Admin: 07/25/16 10:58 Dose: 5 mg Genvoya-Patient's Own Medication (Non- Formulary) 1 each PO DAILY KAREN Last Admin: 07/25/16 10:23 Dose: 1 each Nystatin (Nystop Powder -) 1 applic TP DAILY [facility] Last Admin: 07/25/16 10:57 Dose: 1 applic Lbdkt-2-Cack Ethyl Esters (Lovaza -) 2 gm PO BID KAREN Last Admin: 07/25/16 10:22 Dose: 2 gm Ondansetron HCl (Zofran Injection) 4 mg IVPB Q6H PRN PRN Reason: NAUSEA Last Admin: 07/25/16 13:59 Dose: 4 mg Fluticasone/Salmeterol (Advair 100mcg/50mcg -) 1 puff IH BID [facility] Last Admin: 07/25/16 10:22 Dose: 1 puff Zinc Oxide (Desitin Diaper Rash Oint -) 1 applic TP ASDIR PRN PRN Reason: HYGEINE Last Admin: 07/21/16 13:42 Dose: 1 applic a/p asthma exacerbation hiv lactic acidosis to continue same meds steroid taper
--- NOTE | 2016-07-25 19:08 | PN ---
Teaching Attending Note Name of Resident: Lida Pretty ATTENDING PHYSICIAN STATEMENT I saw and evaluated the patient. I reviewed the resident's note and discussed the case with the resident. I agree with the resident's findings and plan as documented. SUBJECTIVE: no fever or chills, breathing is better. OBJECTIVE: NAD. CV: RRR, no MRG Lungs: improved air entry , no wheezing . Ext: no edema ASSESSMENT AND PLAN: 46 y/o lady with h/o Asthma, HIV, anemia who presented with SOB and wheezing , Abd pain N/V and rectal bleed . She was found to have Asthma exacerbation 1- Asthma exacerbation : no evidence of PNA . Peak flow 160/300 today - cont ALbuterol Nebs QID , and PRN - cont Advair . - check Peak flow daily - decrease steroids dose 2- New onset DM: - SSI now - oral medications at dc ( NOt metformin) 3-Lactic acidosis: Type B . no infectious etiology found . Probably her ALbuterol Nebs are contributing . Other factors too -cont low dose IVF . - no need for ABx 4- GI bleed :melena due to probably gastritis . BRBPR probably due to hemorrhoids or fissure - EGD and colono as out pt - f/u with Dr. Helton - cont steroid cream 5- SEGURA, R sided numbness: unclear etiology. - CT scan of head with no etiology . can't fit in MRI. - ESR nl - f/u as out pt 6- HIV : cont Genvoya HLOC
[2016-07-25] MEDS: ATORVASTATIN CA 20 MG TABLET (FP) PO SCH (21:18)
[2016-07-26] MEDS: ONDANSETRON 4 MG/2 ML VIAL IVPB PRN ×3 (00:37→14:13)
[2016-07-26] MEDS ORDERED: BISMUTH SUBSALICYLATE 262 MG/15 ML BTL PO ONE (01:14)
--- NOTE | 2016-07-26 01:19 | HOSP ---
Subjective - Review of Symptoms Events since last encounter: Was paged by the nurse at 1:00am and informed that patient has been complaining of right sided chest pain. Went to examine the patient and she mentioned she just started having chest pain 5 minutes ago, located on the right side, 6/10 in intensity, pricking in quality, non radiating, aggravated on deep inspiration and reproducible. Patient mentions that she has been having similar chest pain on/off since 2 days. Also has had shortness of breath due to asthma exacerbation. Denies palpitation, nausea or vomiting. Has point tenderness on the face, bilateral arms and bilateral legs. Physical Examination BP- 132/85 mmHg, P- 77 bpm, T- afebrile, RR- 16; Spo2-98 % @ 3L nasal oxygen. GENERAL: Morbidly obese, Awake, alert, and fully oriented, in no acute distress. HEAD: Normal with no signs of trauma. EYES: EOM intact, no pallor or icterus. EARS, NOSE, THROAT: Moist mucous membranes. NECK: Cervical lymphadenopathy, acanthosis nigricans LUNGS: Tenderness on palpation over the right side extending from second ICS to 4th ICS. B/L equal air entry, B/L expiratory wheezing, poor inspiratory/ expiratory effort HEART: Regular rate and rhythm, normal S1 and S2, no murmur. ABDOMEN: Soft, diffusely tender, not distended, normoactive bowel sounds, no guarding, no rebound, no masses. No hepatomegaly or splenomegaly. LOWER EXTREMITIES: warm, well-perfused. No calf tenderness. 1+ pitting edema. NEUROLOGICAL: Normal speech.Gait not observed. Bulk, tone, power, reflexes normal in all extremities. Decreased sensation to light touch on the right forehead and cheeks- Unchanged from prior examination. PSYCHIATRIC: Cooperative. Good eye contact. Appropriate mood and affect. SKIN: Point tenderness over the face, bilateral upper and lower extremities, Warm, dry, lesions as above A/P Patient is a 46 year old Female with significant PMH of asthma, HIV (on genvoya) , anemia, presented to the ED with SOB and wheezing admitted with the diagnosis of Asthma exacerbation. # Atypical chest pain Stat EKG- Normal sinus rhythm. Likely due to GI-origin Will give her Pepto-Bismol once time dose Highly doubt it is cardiac in origin since pain is located in the right side , aggravated on inspiration, tenderness on palpation, hence troponins not ordered. Plan of care explained to the patient. She verbalized understanding. Case discussed with Dr. Godfrey. Physical Examination Vital Signs: Vital Signs Temperature 97.3 F L 07/25/16 18:20 Pulse Rate 76 07/25/16 18:20 Respiratory Rate 16 07/25/16 18:20 Blood Pressure 155/70 07/25/16 18:20 O2 Sat by Pulse Oximetry (%) 98 07/25/16 11:15 Labs: CBC, BMP 07/25/16 10:30 07/25/16 07:00 Visit type - Emergency Visit Emergency Visit: Yes ED Registration Date: 07/21/16 Care time: The patient presented to the Emergency Department on the above date and was hospitalized for further evaluation of their emergent condition. - New Patient This patient is new to me today: No - Critical Care Critical Care patient: No
[2016-07-26] MEDS: ALBUTEROL SO4 0.083% IH SOL 2.5 MG/3 ML VIAL.NEB. NEB PRN (01:34)
[2016-07-26] MEDS: INSULIN SLIDING SCALE (NOVOLOG) 1 VIAL SQ SCH ×4 (06:01→22:08)
[2016-07-26] MEDS: METOCLOPRAMIDE HCL 10 MG TABLET (FP) PO SCH ×3 (06:02→17:25)
[2016-07-26] MEDS: ACETAMINOPHEN 325 MG TABLET (FP) PO PRN (06:02)
[2016-07-26] MEDS: ALBUTEROL SO4 0.083% IH SOL 2.5 MG/3 ML VIAL.NEB. NEB SCH ×3 (06:55→17:29)
[2016-07-26] MEDS ORDERED: PT OWN MED DRAWER 7, Y5N ONE ×3 (09:44→20:58)
[2016-07-26] MEDS: methylPREDNISolone NA SUCC 40 MG/1 ML VIAL IVPB SCH (09:46)
[2016-07-26] MEDS: PANTOPRAZOLE SODIUM 100 ML IVPB SCH (09:46)
[2016-07-26] MEDS: FLUTICASONE/SALMETEROL 100 MCG/50 MCG DISKUS IH SCH (09:46)
[2016-07-26] MEDS: OMEGA-3 ACID ETHYL ESTERS (FATTY-ACIDS) 1 GM CAPSULE (FP) PO SCH ×2 (09:47→21:53)
[2016-07-26] MEDS: HYDROCORTISONE 2.5% TOPICAL CREAM 30 GM TUBE TP SCH (09:49)
[2016-07-26] MEDS: NYSTATIN POWDER 100,000 UNITS/GM - 15 GM TOPICAL POWDER TP SCH (09:49)
[2016-07-26] MEDS: GENVOYA PO SCH (09:49)
--- NOTE | 2016-07-26 11:33 | EKG ---
Test Reason : Blood Pressure : / mmHG Vent. Rate : 071 BPM Atrial Rate : 071 BPM P-R Int : 128 ms QRS Dur : 106 ms QT Int : 432 ms P-R-T Axes : 021 017 -01 degrees QTc Int : 469 ms POOR DATA QUALITY, INTERPRETATION MAY BE ADVERSELY AFFECTED NORMAL SINUS RHYTHM NORMAL ECG WHEN COMPARED WITH ECG OF 21-JUL-2016 01:06, NO SIGNIFICANT CHANGE WAS FOUND Confirmed by CHARU NICHOLSON, CLARA ([id number]) on 07/26/2016 11:32:47 AM Referred By: Confirmed By:CLARA BOX MD
[2016-07-26 13:38] LABS: THYROID STIMULATING HORMONE 0.48 uIU/ml (0.358-3.74)
[2016-07-26] MEDS: SODIUM CHLORIDE 1,000 ML IV SCH (14:10)
[2016-07-26] MEDS: BUDESONIDE/FORMETEROL FUMARATE 160/4.5 mcg INHALER IH SCH ×2 (14:13→21:53)
--- NOTE | 2016-07-26 14:35 | PN ---
Physical Exam: SUBJECTIVE: Patient seen and examined Patient resting in bed, NAD. afebrile and hemodynamically stable. Multiple complaints of reproducible chest pain overnight, resolved now. On 3 L nc during the day. States her breathing is worsened and she is wheezing more. Solid noonbloody BM today. Still has R sided numbness and epigastric abd pain. denies chest pain, f/c, diarrhea, dysuria OBJECTIVE: Vital Signs Period Temp Pulse Resp BP Sys/So Pulse Ox Last 24 Hr 97.3 F-98.2 F 74-100 16-22 112-155/57-94 97-99 GENERAL: Awake, alert, and fully oriented, mildly irritated HEAD: Normal with no signs of trauma. EYES: extraocular movements intact, sclera anicteric, conjunctiva clear. No lid lag. EARS, NOSE, THROAT: Moist mucous membranes. NECK: submental and cervical lymphadenopathy, acanthosis nigricans LUNGS: very restricted air movement, diffuse wheezes HEART: Regular rate and rhythm, normal S1 and S2 ABDOMEN: Soft, diffusely tender, not distended, normoactive bowel sounds, no guarding, no rebound, no masses. No hepatomegaly or splenomegaly. LOWER EXTREMITIES: warm, well-perfused. No calf tenderness. trace edema. NEUROLOGICAL: Normal speech. Gait not observed. PSYCHIATRIC: Cooperative. Good eye contact. Appropriate mood and affect. SKIN: Warm, dry, small scratch under R breast, no cellulitis. small area of redness under chin near a protuberance of her nasal cannula . Laboratory Results - last 24 hr 07/22/16 07/25/16 07/25/16 12:50 17:09 21:29 POC Glucometer 178 210 Vitamin B12 Serum Folate TSH B-Hydroxybutyrate 2.00 07/26/16 07/26/16 07/26/16 06:00 06:50 11:46 POC Glucometer 163 123 Vitamin B12 333 Serum Folate TSH B-Hydroxybutyrate 07/26/16 12:30 POC Glucometer Vitamin B12 Serum Folate 16 TSH 0.48 D B-Hydroxybutyrate Active Medications Generic Name Dose Route Start Last Admin Trade Name Freq PRN Reason Stop Dose Admin Acetaminophen 650 mg 07/21/16 05:33 07/26/16 06:02 Tylenol - PO 650 mg Q6H PRN Administration FEVER OR PAIN Albuterol Sulfate 1 amp 07/21/16 10:50 07/26/16 01:34 Ventolin 0.083% Nebulizer Soln - NEB 1 amp Q4H PRN Administration SHORT OF BREATH/WHEEZING Albuterol Sulfate 1 amp 07/25/16 00:00 07/26/16 11:55 Ventolin 0.083% Nebulizer Soln - NEB 1 amp Q6HPO BELLE Administration Atorvastatin Calcium 20 mg 07/22/16 22:00 07/25/16 21:18 Lipitor - PO 20 mg HS BELLE Administration Budesonide/Formoterol Fumarate 2 puff 07/26/16 13:00 07/26/16 14:13 Symbicort 160/4.5mcg - IH 2 puff BID BELLE Administration Hydrocortisone 1 applic 07/22/16 13:00 07/26/16 09:49 Anusol 2.5% Hc Cream - TP 1 applic DAILY BELLE Administration Pantoprazole Sodium 100 mls @ 200 mls/hr 07/21/16 11:00 07/26/16 09:46 Protonix 40mg Ivpb (Pre-Docked) IVPB 200 mls/hr BID BELLE Administration Sodium Chloride 1,000 mls @ 50 mls/hr 07/23/16 13:15 07/26/16 14:10 Normal Saline - IV 50 mls/hr ASDIR BELLE Administration Insulin Aspart 1 vial 07/22/16 16:30 07/26/16 11:49 Novolog Vial Sliding Scale - SQ Not Given ACHS BELLE Protocol Methylprednisolone Sodium Succinate 60 mg 07/26/16 18:00 Solu-Medrol - IVPB Q8H-IV BELLE Metoclopramide HCl 5 mg 07/22/16 11:30 07/26/16 11:48 Reglan - PO 5 mg TIDAC BELLE Administration Montelukast Sodium 10 mg 07/26/16 22:00 Singulair - PO HS BELLE Genvoya-Patient's 1 each 07/23/16 20:00 07/26/16 09:49 Own Medication (Non- PO 1 each Formulary) DAILY BELLE Administration Nystatin 1 applic 07/21/16 11:15 07/26/16 09:49 Nystop Powder - TP 1 applic DAILY BELLE Administration Uafwa-5-Rezl Ethyl Esters 2 gm 07/22/16 12:45 07/26/16 09:47 Lovaza - PO 2 gm BID BELLE Administration Ondansetron HCl 4 mg 07/21/16 04:18 07/26/16 14:13 Zofran Injection IVPB 4 mg Q6H PRN Administration NAUSEA Zinc Oxide 1 applic 07/21/16 11:13 07/21/16 13:42 Desitin Diaper Rash Oint - TP 1 applic ASDIR PRN Administration HYGEINE ASSESSMENT/PLAN: CXR: unremarkable Repeat CXR unremarkable CT head negative CT w and w/o contrast abd negative CT w and w/o contrast Chest negative ASSESSMENT/PLAN: 46 y/o F w/PMH of asthma, HIV (on genvoya), anemia, presents to ER with SOB and wheezing. Acute on chronic asthma exacerbation -symptomatically worse, more wheezing -Solumedrol IV 60 q6h -albuterol q6h belle, q 4 prn -symbicort with spacer 160 -singulair HS -pulm consult -CXR -bipap use at night -flu swab negative -3L NC -allergy testing outpatient Upper GIB -r/o gastritis -self reported melena -occult blood + -history of steroid use w/o GI ppx -history of GERD, abd pain -H pylori test negative -Gi appreciated, possible endoscopy when respiratory status improves -PPi IV 40 bid Chronic abd pain -likley gastritis, manage as above Rectal bleed -bloody bm yesterday -possible fissure vs hemorrhoid(palpated at 6 o'clock) -CT abd/pelvis unremarkable -hold hep -h/h stable Acute gastroenteritis -viral vs bacterial -resolved -stool studies negative DM -A1C 7.9 -BGM -sliding scale HLD/ high triglycerides -lipid panel: trig 425, cholest 217, ldl 125, hdl 63 -lipitor, fish oil Leukocytosis -likely reactive due to steroids Persistent lactic acidosis -4.4 appears to be her baseline -Likely type B (many possible causes), may be due to struggle with breathing -ID consult appreciated: unlikely infectious or due to HIV/HIV meds -does not require abx -NS @ 50 DINA -Creat 0.7; resolved -IVF R sided numbness. headache -CT head unremarkable -B 12 wnl -check folate, lead, TSH HIV -genvoya -last CD4 187 0CD4 check Morbid obesity -nutrition counseling PPX scd, ppi FEN NS @50 lytes stable diabetic diet Dispo: [facility] [place] Visit type - Emergency Visit Emergency Visit: Yes ED Registration Date: 07/21/16 Care time: The patient presented to the Emergency Department on the above date and was hospitalized for further evaluation of their emergent condition. - New Patient This patient is new to me today: No - Critical Care Critical Care patient: No - Discharge Referral Referred to [facility] No
--- NOTE | 2016-07-26 15:25 | PN ---
Progress Note (short form) - Note Progress Note: PULMONARY CONSULTATION DICTATED 07/26/16 IMP CHRONIC PERSISTENT ASTHMA WITH ACUTE EXACERBATION OSAS MORBID OBESITY HEMOPTYSIS ELEVATED LACTATE LEVEL HIV PLAN IV STEROIDS INHALED BRONCHODILATORS NASAL O2 SPUTUM C+S TREND LACTATE IVF ENT EVALUATION PFTS OUTPATIENT MONITOR PEAK FLOW BIPAP AT NIGHT DR GREENWOOD
[2016-07-26] MEDS ORDERED: methylPREDNISolone NA SUCC 125 MG/2 ML VIAL IVPB SCH (18:00)
--- NOTE | 2016-07-26 18:44 | CONS ---
PULMONARY CONSULTATION DATE OF CONSULTATION: 07/26/2016 REFERRING PHYSICIAN: Kirill Maldonado MD DICTATED BY: Kumar Martin MD HISTORY OF PRESENT ILLNESS: The patient is a 46-year-old female known to me from previous hospitalization. PAST MEDICAL HISTORY: Chronic persistent asthma with multiple exacerbations, HIV, compliant with medications, obstructive sleep apnea on CPAP. Admitted to [facility] on July 21 with complaint of increasing shortness of breath, cough and chest congestion. Patient was recently hospitalized in [facility]. Had treatment for exacerbation of asthma. She was initially doing well until a few days prior to admission when she started developing the above complaints. Denies any fevers, chills, nausea, vomiting or diaphoresis. She also complains of abdominal. Patient was admitted for the above. On admission, she was felt to have acute asthma exacerbation. She was placed on inhaled bronchodilators and IV steroids with initial clinical improvement. Today, she started developing increasing shortness of breath and wheezing. Also had a couple episodes of hemoptysis. She denies any previous history of hemoptysis. She is a non-smoker. There is no history of occupational exposure to chemicals or fumes. PAST SURGICAL HISTORY: Past medical history again includes chronic, persistent asthma, HIV, anemia and obstructive sleep apnea. REVIEW OF SYSTEMS: Positive orthopnea. Positive dyspnea. Positive cough. Positive hemoptysis. No fever, no chills. Positive chest pain/reproducible. Positive abdominal discomfort. CURRENT MEDICATIONS: Symbicort, Anusol, Solu-Medrol, Tylenol, Lovaza, Desitin, albuterol, Lipitor, NovoLog, nystatin, Singulair, Reglan and Protonix. PHYSICAL EXAMINATION: General: The patient is an obese female but awake, alert, mildly dyspneic. Vital signs: She is afebrile. Blood pressure is 129/71. Respiratory rate is 22. O2 saturation is 97% on 3 liters. HEENT: Normocephalic/atraumatic. Neck is supple. Heart: Regular, S1, S2. Chest: Bilateral expiratory wheezes. Abdomen: Soft. Bowel sounds are positive. Extremities: No cyanosis or edema. LABS: INR is 1.07. WBC is 14.7. Hemoglobin 11.4, hematocrit 36.7, platelet count 142,000. Her pH on admission was 7.35. PCO2 was 36. PO2 was 119. Bicarbonate 20. Oxygen saturation of 98.3% on 3 liters. Lactate is 4.43. BUN is 14. Creatinine is 0.8. Chest x-ray: There are no infiltrates and no effusions. IMPRESSION: 1. Chronic persistent asthma with acute exacerbation. 2. Morbid obesity. 3. Obstructive sleep apnea syndrome. 4. HIV. 5. Elevated lactate level, possibly secondary to work of breathing. 6. Hemoptysis, possibly secondary to cough plus upper respiratory tract infection. PLAN: 1. Continue IV steroids. 2. Inhaled bronchodilators. 3. Supplemental O2. 4. Monitor peak flow. 5. Singulair. 6. PFTs as an outpatient 7. BiPAP at night. 8. Schedule ENT evaluation. 9. Start Spiriva. 10. Monitor 10 lactate level. KUMAR MARTIN M.D. BENOIT/[id number] MTDD
--- NOTE | 2016-07-26 19:41 | PN ---
Teaching Attending Note Name of Resident: Lida Pretty ATTENDING PHYSICIAN STATEMENT I saw and evaluated the patient. I reviewed the resident's note and discussed the case with the resident. I agree with the resident's findings and plan as documented. Patient is short of breath more than yesterday. Vital Signs Temperature 97.5 F L 07/26/16 18:10 Pulse Rate 92 H 07/26/16 18:10 Respiratory Rate 16 07/26/16 18:10 Blood Pressure 146/73 07/26/16 18:10 O2 Sat by Pulse Oximetry (%) 98 07/26/16 17:25 CBCD WBC 14.7 K/mm3 (4.0-10.0) H 07/25/16 10:30 RBC 4.78 M/mm3 (3.60-5.2) 07/25/16 10:30 Hgb 11.4 GM/dL (10.7-15.3) 07/25/16 10:30 Hct 36.7 % (32.4-45.2) 07/25/16 10:30 MCV 76.8 fl (80-96) L 07/25/16 10:30 MCHC 31.0 g/dl (32.0-36.0) L 07/25/16 10:30 RDW 17.9 % (11.6-15.6) H 07/25/16 10:30 Plt Count 142 K/MM3 (134-434) 07/25/16 10:30 MPV 7.6 fl (7.5-11.1) 07/25/16 10:30 CMP Sodium 141 mmol/L (136-145) 07/25/16 07:00 Potassium 4.0 mmol/L (3.5-5.1) 07/25/16 07:00 Chloride 103 mmol/L (98-107) 07/25/16 07:00 Carbon Dioxide 22 mmol/L (21-32) 07/25/16 07:00 Anion Gap 16 (8-16) 07/25/16 07:00 BUN 14 mg/dL (7-18) 07/25/16 07:00 Creatinine 0.8 mg/dL (0.55-1.02) 07/25/16 07:00 Creat Clearance w eGFR > 60 (>60) 07/21/16 06:30 Random Glucose 165 mg/dL (74-106) H 07/25/16 07:00 Calcium 8.5 mg/dL (8.5-10.1) 07/25/16 07:00 Total Bilirubin 0.3 mg/dL (0.2-1.0) 07/21/16 06:30 AST 6 U/L (15-37) L D 07/21/16 06:30 ALT 36 U/L (12-78) 07/21/16 06:30 Alkaline Phosphatase 50 U/L (45-117) 07/21/16 06:30 Total Protein 6.3 g/dl (6.4-8.2) L 07/21/16 06:30 Albumin 3.4 g/dl (3.4-5.0) 07/21/16 06:30 CARDIAC ENZYMES Creatine Kinase 75 IU/L (26-192) 07/23/16 06:15 Troponin I < 0.02 ng/ml (0.00-0.05) 07/21/16 01:45 Current Medications Generic Name Dose Route Start Last Admin Trade Name Freq PRN Reason Stop Dose Admin Acetaminophen 650 mg 07/21/16 05:33 07/26/16 06:02 Tylenol - PO 650 mg Q6H PRN Administration FEVER OR PAIN Albuterol Sulfate 1 amp 07/21/16 10:50 07/26/16 01:34 Ventolin 0.083% Nebulizer Soln - NEB 1 amp Q4H PRN Administration SHORT OF BREATH/WHEEZING Albuterol Sulfate 1 amp 07/25/16 00:00 07/26/16 17:29 Ventolin 0.083% Nebulizer Soln - NEB 1 amp Q6HPO KAREN Administration Atorvastatin Calcium 20 mg 07/22/16 22:00 07/25/16 21:18 Lipitor - PO 20 mg HS KAREN Administration Budesonide/Formoterol Fumarate 2 puff 07/26/16 13:00 07/26/16 14:13 Symbicort 160/4.5mcg - IH 2 puff BID KAREN Administration Hydrocortisone 1 applic 07/22/16 13:00 07/26/16 09:49 Anusol 2.5% Hc Cream - TP 1 applic DAILY KAREN Administration Pantoprazole Sodium 100 mls @ 200 mls/hr 07/21/16 11:00 07/26/16 09:46 Protonix 40mg Ivpb (Pre-Docked) IVPB 200 mls/hr BID KAREN Administration Sodium Chloride 1,000 mls @ 50 mls/hr 07/23/16 13:15 07/26/16 14:10 Normal Saline - IV 50 mls/hr ASDIR KAREN Administration Insulin Aspart 1 vial 07/22/16 16:30 07/26/16 17:25 Novolog Vial Sliding Scale - SQ 2 units ACHS KAREN Administration Protocol Methylprednisolone Sodium Succinate 60 mg 07/26/16 21:00 Solu-Medrol - IVPB Q6H-IV KAREN Metoclopramide HCl 5 mg 07/22/16 11:30 07/26/16 17:25 Reglan - PO 5 mg TIDAC KAREN Administration Montelukast Sodium 10 mg 07/26/16 22:00 Singulair - PO HS KAREN Genvoya-Patient's 1 each 07/23/16 20:00 07/26/16 09:49 Own Medication (Non- PO 1 each Formulary) DAILY KAREN Administration Nystatin 1 applic 07/21/16 11:15 07/26/16 09:49 Nystop Powder - TP 1 applic DAILY KAREN Administration Uohee-8-Ihzo Ethyl Esters 2 gm 07/22/16 12:45 07/26/16 09:47 Lovaza - PO 2 gm BID KAREN Administration Ondansetron HCl 4 mg 07/21/16 04:18 07/26/16 14:13 Zofran Injection IVPB 4 mg Q6H PRN Administration NAUSEA Tiotropium [place] 1 puff 07/26/16 18:00 Spiriva - IH DAILY KAREN Zinc Oxide 1 applic 07/21/16 11:13 07/21/16 13:42 Desitin Diaper Rash Oint - TP 1 applic ASDIR PRN Administration HYGEINE Home Medications Medication Instructions Recorded Elviteg/Crystal/Emtric/Tenofo Ala 1 each PO DAILY 02/15/16 [Genvoya Tablet] Methylprednisolone [Medrol Dose 4 mg PO ASDIR #21 tablet 07/17/16 Rodriguez] Albuterol 0.083% Nebulizer Rach 07/26/16 [Ventolin 0.083% Nebulizer Soln -] Budesonide/Formeterol Fumarate 2 inh PO BID 07/26/16 [SYMBICORT 160/4.5mcg -] CHEST: No air entry BL , NO w/r/r Heart: S1S2 positive ASSESSMENT AND PLAN: 46 y/o lady with h/o Asthma, HIV, anemia who presented with SOB and wheezing , Abd pain N/V and rectal bleed . She was found to have Asthma exacerbation # Acute Asthma exacerbation : peak flow is 160 today , increased her Solu MEdrol 60mg IV q8h, Dr.Brill carpio. for consult - cont ALbuterol Nebs QID , and PRN ; Added Singulair, Symbicort, Peak flow daily . repeat Peak flow is 260 , continue Oxygen for now, Bipap prn # New onset DM: SSI now ,on oral medications at id ( NOt metformin) #Lactic acidosis: Type B . no infectious etiology found . Probably her ALbuterol Nebs are contributing # GI bleed :melena due to probably gastritis . BRBPR probably due to hemorrhoids or fissure ; EGD and colono as out pt ; f/u with Dr. Helton ; cont steroid cream # SEGURA resolved today. CT scan of head with no etiology . can't fit in MRI.; ESR nl; f/u as out pt #HIV : cont Genvoya DVT Px: SCDs, early ambulation
[2016-07-26] MEDS: MONTELUKAST NA 10 MG TABLET PO SCH (21:53)
[2016-07-26] MEDS: methylPREDNISolone NA SUCC 125 MG/2 ML VIAL IVPB SCH (21:53)
[2016-07-26] MEDS: ATORVASTATIN CA 20 MG TABLET (FP) PO SCH (22:05)
[2016-07-26] MEDS: TIOTROPIUM BROMIDE 18 MCG/INH (DEVICE W/ 5 CAPSULES) IH SCH (22:05)
[2016-07-26] MEDS ORDERED: INSULIN (NOVOLOG) ASPART 100 UNITS/ML 10ML VIAL ONE (22:11)
[2016-07-27] MEDS: ALBUTEROL SO4 0.083% IH SOL 2.5 MG/3 ML VIAL.NEB. NEB SCH ×5 (00:06→23:15)
[2016-07-27] MEDS: PANTOPRAZOLE SODIUM 100 ML IVPB SCH ×2 (00:55→09:07)
[2016-07-27] MEDS: SODIUM CHLORIDE 1,000 ML IV SCH ×2 (01:01→15:21)
[2016-07-27] MEDS: methylPREDNISolone NA SUCC 125 MG/2 ML VIAL IVPB SCH ×4 (03:10→22:51)
[2016-07-27] MEDS: ACETAMINOPHEN 325 MG TABLET (FP) PO PRN (03:52)
[2016-07-27] MEDS: METOCLOPRAMIDE HCL 10 MG TABLET (FP) PO SCH ×3 (06:45→16:42)
[2016-07-27] MEDS: INSULIN SLIDING SCALE (NOVOLOG) 1 VIAL SQ SCH ×4 (06:48→23:04)
[2016-07-27] MEDS ORDERED: PT OWN MED DRAWER 7, Y5N ONE ×2 (08:44→22:24)
[2016-07-27] MEDS: BUDESONIDE/FORMETEROL FUMARATE 160/4.5 mcg INHALER IH SCH ×2 (09:02→22:52)
[2016-07-27] MEDS: TIOTROPIUM BROMIDE 18 MCG/INH (DEVICE W/ 5 CAPSULES) IH SCH (09:03)
[2016-07-27] MEDS: OMEGA-3 ACID ETHYL ESTERS (FATTY-ACIDS) 1 GM CAPSULE (FP) PO SCH ×2 (09:04→22:52)
[2016-07-27] MEDS: GENVOYA PO SCH (09:04)
[2016-07-27] MEDS: NYSTATIN POWDER 100,000 UNITS/GM - 15 GM TOPICAL POWDER TP SCH (09:06)
[2016-07-27] MEDS: HYDROCORTISONE 2.5% TOPICAL CREAM 30 GM TUBE TP SCH (09:06)
[2016-07-27 09:07] LABS: CALCIUM 7.7 mg/dL (8.5-10.1); CREATININE 0.8 mg/dL (0.55-1.02)
[2016-07-27] MEDS: ALBUTEROL SO4 0.083% IH SOL 2.5 MG/3 ML VIAL.NEB. NEB PRN (10:40)
[2016-07-27] MEDS ORDERED: INSULIN (NOVOLOG) ASPART 100 UNITS/ML 10ML VIAL ONE ×2 (11:51→16:41)
--- NOTE | 2016-07-27 12:02 | PN ---
Progress Note (short form) - Note Progress Note: PULMONARY Breathing improving since increase in medrol dose. Still short of breath with chest tightness, wheezing. Peak flow this AM 300. Last Vital Signs Temp Pulse Resp BP Pulse Ox 97.7 F 75 22 157/74 98 07/27/16 08:57 07/27/16 10:25 07/27/16 08:57 07/27/16 08:57 07/27/16 10:25 Gen: mildly tachypneic with speaking. Heart: RRR Lung: distant breath sounds, + rhonchi, wheezes Abd: soft, nontender, obese Ext: + edema CBC, BMP 07/27/16 08:20 Active Medications Acetaminophen (Tylenol -) 650 mg PO Q6H PRN PRN Reason: FEVER OR PAIN Last Admin: 07/27/16 03:52 Dose: 650 mg Albuterol Sulfate (Ventolin 0.083% Nebulizer Soln -) 1 amp NEB Q4H PRN PRN Reason: SHORT OF BREATH/WHEEZING Last Admin: 07/27/16 10:40 Dose: 1 amp Albuterol Sulfate (Ventolin 0.083% Nebulizer Soln -) 1 amp NEB Q6HPO KAREN Last Admin: 07/27/16 06:24 Dose: 1 amp Amlodipine Besylate (Norvasc -) 5 mg PO DAILY [facility] Atorvastatin Calcium (Lipitor -) 20 mg PO HS [facility] Last Admin: 07/26/16 22:05 Dose: 20 mg Budesonide/Formoterol Fumarate (Symbicort 160/4.5mcg -) 2 puff IH BID [facility] Last Admin: 07/27/16 09:02 Dose: 2 puff Hydrocortisone (Anusol 2.5% Hc Cream -) 1 applic TP DAILY [facility] Last Admin: 07/27/16 09:06 Dose: 1 applic Pantoprazole Sodium (Protonix 40mg Ivpb (Pre-Docked)) 100 mls @ 200 mls/hr IVPB BID [facility] Last Admin: 07/27/16 09:07 Dose: 200 mls/hr Sodium Chloride (Normal Saline -) 1,000 mls @ 50 mls/hr IV ASDIR [facility] Last Admin: 07/27/16 01:01 Dose: 50 mls/hr Insulin Aspart (Novolog Vial Sliding Scale -) 1 vial SQ ACHS KAREN PRN Reason: Protocol Last Admin: 07/27/16 11:54 Dose: 2 units Methylprednisolone Sodium Succinate (Solu-Medrol -) 60 mg IVPB Q6H-IV KAREN Last Admin: 07/27/16 08:51 Dose: 60 mg Metoclopramide HCl (Reglan -) 5 mg PO TIDAC KAREN Last Admin: 07/27/16 11:53 Dose: 5 mg Montelukast Sodium (Singulair -) 10 mg PO HS [facility] Last Admin: 07/26/16 21:53 Dose: 10 mg Genvoya-Patient's Own Medication (Non- Formulary) 1 each PO DAILY KAREN Last Admin: 07/27/16 09:04 Dose: 1 each Nystatin (Nystop Powder -) 1 applic TP DAILY KAREN Last Admin: 07/27/16 09:06 Dose: 1 applic Wfozt-2-Krrd Ethyl Esters (Lovaza -) 2 gm PO BID KAREN Last Admin: 07/27/16 09:04 Dose: 2 gm Ondansetron HCl (Zofran Injection) 4 mg IVPB Q6H PRN PRN Reason: NAUSEA Last Admin: 07/26/16 14:13 Dose: 4 mg Tiotropium [place] (Spiriva -) 1 puff IH DAILY KAREN Last Admin: 07/27/16 09:03 Dose: 1 puff Zinc Oxide (Desitin Diaper Rash Oint -) 1 applic TP ASDIR PRN PRN Reason: HYGEINE Last Admin: 07/21/16 13:42 Dose: 1 applic A/P Acute Asthma Exacerbation Morbid Obesity PUMA Lactic Acidosis HIV - continue medrol at current dose - inhaled bronchodilators - singulair - monitor peak flow - O2 as needed - CPAP at night - DVT prophylaxis
[2016-07-27] MEDS: amLODIPine BESYLATE 5 MG TABLET (FP) PO SCH (12:55)
--- NOTE | 2016-07-27 15:00 | PN ---
Physical Exam: SUBJECTIVE: Patient seen and examined Patient resting in bed, NAD. afebrile and hemodynamically stable. On 3 L nc. States her breathing is improved but she is wheezing more and coughing up white sputum. No BM today. denies chest pain, f/c, diarrhea, dysuria OBJECTIVE: Vital Signs Period Temp Pulse Resp BP Sys/So Pulse Ox Last 24 Hr 97.5 F-98.7 F 75-95 16-24 142-157/73-91 96-99 GENERAL: Awake, alert, and fully oriented, mildly irritated HEAD: Normal with no signs of trauma. EYES: extraocular movements intact, sclera anicteric, conjunctiva clear. No lid lag. EARS, NOSE, THROAT: Moist mucous membranes. NECK: submental and cervical lymphadenopathy, acanthosis nigricans LUNGS: significally improved air movement, diffuse wheezes increased HEART: Regular rate and rhythm, normal S1 and S2 ABDOMEN: Soft, diffusely tender, not distended, normoactive bowel sounds, no guarding, no rebound, no masses. No hepatomegaly or splenomegaly. LOWER EXTREMITIES: warm, well-perfused. No calf tenderness. trace edema. NEUROLOGICAL: Normal speech. Gait not observed. PSYCHIATRIC: Cooperative. Good eye contact. Appropriate mood and affect. SKIN: Warm, dry, small scratch under R breast, no cellulitis. small area of redness under chin near a protuberance of her nasal cannula . Laboratory Results - last 24 hr 07/26/16 07/26/16 07/27/16 17:09 22:07 06:47 Sodium Potassium Chloride Carbon Dioxide Anion Gap BUN Creatinine POC Glucometer 198 193 183 Random Glucose Lactic Acid Calcium 07/27/16 07/27/16 07/27/16 08:20 08:20 11:37 Sodium 141 Potassium 4.0 Chloride 102 Carbon Dioxide 26 Anion Gap 13 BUN 13 Creatinine 0.8 POC Glucometer 157 Random Glucose 154 H Lactic Acid 5.550 H* Calcium 7.7 L Active Medications Generic Name Dose Route Start Last Admin Trade Name Freq PRN Reason Stop Dose Admin Acetaminophen 650 mg 07/21/16 05:33 07/27/16 03:52 Tylenol - PO 650 mg Q6H PRN Administration FEVER OR PAIN Albuterol Sulfate 1 amp 07/21/16 10:50 07/27/16 10:40 Ventolin 0.083% Nebulizer Soln - NEB 1 amp Q4H PRN Administration SHORT OF BREATH/WHEEZING Albuterol Sulfate 1 amp 07/25/16 00:00 07/27/16 13:30 Ventolin 0.083% Nebulizer Soln - NEB 1 amp Q6HPO BELLE Administration Amlodipine Besylate 5 mg 07/27/16 12:00 07/27/16 12:55 Norvasc - PO 5 mg DAILY BELLE Administration Atorvastatin Calcium 20 mg 07/22/16 22:00 07/26/16 22:05 Lipitor - PO 20 mg HS BELLE Administration Budesonide/Formoterol Fumarate 2 puff 07/26/16 13:00 07/27/16 09:02 Symbicort 160/4.5mcg - IH 2 puff BID BELLE Administration Hydrocortisone 1 applic 07/22/16 13:00 07/27/16 09:06 Anusol 2.5% Hc Cream - TP 1 applic DAILY BELLE Administration Pantoprazole Sodium 100 mls @ 200 mls/hr 07/21/16 11:00 07/27/16 09:07 Protonix 40mg Ivpb (Pre-Docked) IVPB 200 mls/hr BID BELLE Administration Sodium Chloride 1,000 mls @ 50 mls/hr 07/23/16 13:15 07/27/16 01:01 Normal Saline - IV 50 mls/hr ASDIR BELLE Administration Insulin Aspart 1 vial 07/22/16 16:30 07/27/16 11:54 Novolog Vial Sliding Scale - SQ 2 units ACHS BELLE Administration Protocol Methylprednisolone Sodium Succinate 60 mg 07/26/16 21:00 07/27/16 08:51 Solu-Medrol - IVPB 60 mg Q6H-IV BELLE Administration Metoclopramide HCl 5 mg 07/22/16 11:30 07/27/16 11:53 Reglan - PO 5 mg TIDAC BELLE Administration Montelukast Sodium 10 mg 07/26/16 22:00 07/26/16 21:53 Singulair - PO 10 mg HS BELLE Administration Genvoya-Patient's 1 each 07/23/16 20:00 07/27/16 09:04 Own Medication (Non- PO 1 each Formulary) DAILY BELLE Administration Nystatin 1 applic 07/21/16 11:15 07/27/16 09:06 Nystop Powder - TP 1 applic DAILY BELLE Administration Cqplr-8-Uizg Ethyl Esters 2 gm 07/22/16 12:45 07/27/16 09:04 Lovaza - PO 2 gm BID BELLE Administration Ondansetron HCl 4 mg 07/21/16 04:18 07/26/16 14:13 Zofran Injection IVPB 4 mg Q6H PRN Administration NAUSEA Tiotropium [place] 1 puff 07/26/16 18:00 07/27/16 09:03 Spiriva - IH 1 puff DAILY BELLE Administration Zinc Oxide 1 applic 07/21/16 11:13 07/21/16 13:42 Desitin Diaper Rash Oint - TP 1 applic ASDIR PRN Administration HYGEINE ASSESSMENT/PLAN: CXR: unremarkable Repeat CXR unremarkable CT head negative CT w and w/o contrast abd negative CT w and w/o contrast Chest negative ASSESSMENT/PLAN: 46 y/o F w/PMH of asthma, HIV (on genvoya), anemia, presents to ER with SOB and wheezing. Acute on chronic asthma exacerbation -symptomatic improvement -Solumedrol IV 60 q6h day 2 -albuterol q6h belle, q 4 prn -symbicort with spacer 160 -singulair HS -pulm consult -bipap use at night -flu swab negative -3L NC -allergy testing outpatient -pulm consult appreciated -consider ENT consult Upper GIB -r/o gastritis -self reported melena -occult blood + -history of steroid use w/o GI ppx -history of GERD, abd pain -H pylori test negative -Gi appreciated, possible endoscopy when respiratory status improves -PPi IV 40 bid Chronic abd pain -likley gastritis, manage as above Rectal bleed -bloody bm yesterday -possible fissure vs hemorrhoid(palpated at 6 o'clock) -CT abd/pelvis unremarkable -hold hep -h/h stable Acute gastroenteritis -viral vs bacterial -resolved -stool studies negative DM -A1C 7.9 -BGM -sliding scale HLD/ high triglycerides -lipid panel: trig 425, cholest 217, ldl 125, hdl 63 -lipitor, fish oil Leukocytosis -likely reactive due to steroids Persistent lactic acidosis -4.4 appears to be her baseline -Likely type B (many possible causes), may be due to struggle with breathing -ID consult appreciated: unlikely infectious or due to HIV/HIV meds -does not require abx -NS @ 50 HTN -norvasc 5 DINA -Creat 0.7; resolved -IVF R sided numbness. headache -CT head unremarkable -B 12 wnl -check folate, lead, TSH HIV -genvoya -last CD4 187 -CD4 check Morbid obesity -nutrition counseling PPX scd, ppi FEN NS @50 lytes stable diabetic diet Dispo: [facility] [place] Visit type - Emergency Visit Emergency Visit: Yes ED Registration Date: 07/21/16 Care time: The patient presented to the Emergency Department on the above date and was hospitalized for further evaluation of their emergent condition. - New Patient This patient is new to me today: No - Critical Care Critical Care patient: No - Discharge Referral Referred to [facility] Med [facility] No
--- NOTE | 2016-07-27 16:34 | PN ---
Progress Note (short form) - Note Progress Note: breathing improved today Vital Signs Period Temp Pulse Resp BP Sys/So Pulse Ox Last 24 Hr 97.5 F-98.7 F 75-95 16-24 142-157/73-91 97-99 no thrush cor-rrr lungs bilateral wheeze abd soft,nt ext no edema CBC, BMP 07/27/16 08:20 Microbiology 07/22/16 14:20 Blood Culture - Final Blood - Peripheral Venous NO GROWTH AFTER 5 DAYS INCUBATION 07/22/16 14:10 Blood Culture - Final Blood - Peripheral Venous NO GROWTH AFTER 5 DAYS INCUBATION a/p asthma exacerbation hiv lactic acidosis to continue same meds steroid taper per pulmonary cd4 count is 197 she has taken bactrim before will resume
[2016-07-27] MEDS: SULFAMETHOXAZOLE/TRIMETHOPRIM 800MG/160MG D.S. TABLET PO SCH (17:19)
--- NOTE | 2016-07-27 18:13 | CONSULT ---
Consult Consult Specialty:: Otolaryngology - History of Present Illness History of Present Illness: 46F admitted for acute asthma exacerbation consulted for airway evaluation. Lucia is HIV + and a known asthmatic. She denies dysphagia, sore throat, dysphonia, neck surgery. - History Source History Provided By: Patient Limitations to Obtaining History: No Limitations - Past Medical History Cardio/Vascular: Yes: Other (Patient reports being seen by leather novelty parts cutter for "sluggish heart". She reports occasional "heaviness" in her chest, no chest pain.) Pulmonary: Yes: Asthma Gastrointestinal: Yes: Irritable Bowel Disease. No: Ascites, GI Bleed, Ulcerative Colitis ...LMP: 01/23/15 Infectious Disease: Yes: HIV Additional Medical History: Morbid obesity - Past Surgical History Past Surgical History: Yes: - Alcohol/Substance Use Hx Alcohol Use: No - Smoking History Smoking history: Never smoked Have you smoked in the past 12 months: No - Social History Usual Living Arrangement: With Spouse ADL: Independent History of Recent Travel: No Home Medications - Allergies Allergies/Adverse Reactions: Allergies Allergy/AdvReac Type Severity Reaction Status Date / Time omeprazole [From Prilosec] Allergy Mild Hives Verified 07/21/16 01:00 omeprazole magnesium Allergy Mild Hives Verified 07/21/16 01:00 [From Prilosec] - Home Medications Home Medications: Ambulatory Orders Elviteg/Crystal/Emtric/Tenofo Ala [Genvoya Tablet] 1 each PO DAILY 02/15/16 Methylprednisolone [Medrol Dose Rodriguez] 4 mg PO ASDIR #21 tablet 07/17/16 Albuterol 0.083% Nebulizer Rach [Ventolin 0.083% Nebulizer Soln -] 07/26/16 Budesonide/Formeterol Fumarate [SYMBICORT 160/4.5mcg -] 2 inh PO BID 07/26/16 Family Disease History - Family Disease History Family Disease History: Diabetes: Father, Heart Disease: Father Review of Systems - Review of Systems Cardiovascular: reports: Shortness of Breath Physical Exam Vital Signs: Vital Signs Temperature 97.9 F 07/27/16 14:33 Pulse Rate 95 H 07/27/16 14:33 Respiratory Rate 24 07/27/16 14:33 Blood Pressure 151/85 07/27/16 14:33 O2 Sat by Pulse Oximetry (%) 97 07/27/16 13:37 Constitutional: Yes: Well Nourished, No Distress, Calm, Other (Morbidly obese sitting at bedside. Audible expiratory wheezes without using stethoscope. No stridor/stertor. Strong voice) Eyes: Yes: WNL HENT: Yes: Other (Ears: grossly nml pinna, EACs, TMs. Nose: +Nasal canula with anterior septal excoriation B. Mouth: MMM. no masses/lesions. Post o/p clear. FOM flat.) Neck: Yes: Supple, Other (limtied by habitus) Respiratory: Yes: Other (B expiratory wheezes) Neurological: Yes: Other (CN3-7,11,12 intact) Labs: CBC, BMP 07/27/16 08:20 Imaging - Results Chest X-ray: Report Reviewed Other: Other (Chart records reviewed from Pulmonology. Flexible Fiberoptic Laryngoscopy: Explained rbla with patient. Consent given. Endoscope passed through nose to supraglottis, withdrawn. Findings: 1. Normal vocal cord mobility and appearance. 2. No masses/lesions 3. Unremarkable nasopharynx, oropharynx, hypopharynx. Mild postcricoid edema. Pyriforms grossly clear. 4. No paradoxical motion) Assessment/Plan Acute Asthma Exacerbation Morbid OBesity PUMA HIV+ -No evidence of glottic/supraglottic obstruction. No stridor noted. Suspect inflammation in her lower airways -Management per primary team, Pulmonology. Thank you for this consultation. Please call if any questions.
--- NOTE | 2016-07-27 18:43 | PN ---
Teaching Attending Note Name of Resident: Lida Pretty ATTENDING PHYSICIAN STATEMENT I saw and evaluated the patient. I reviewed the resident's note and discussed the case with the resident. I agree with the resident's findings and plan as documented. Patient feels better today her peak flow is 300. Vital Signs Temperature 97.9 F 07/27/16 14:33 Pulse Rate 95 H 07/27/16 14:33 Respiratory Rate 24 07/27/16 14:33 Blood Pressure 151/85 07/27/16 14:33 O2 Sat by Pulse Oximetry (%) 98 07/27/16 18:05 CBCD WBC 14.7 K/mm3 (4.0-10.0) H 07/25/16 10:30 RBC 4.78 M/mm3 (3.60-5.2) 07/25/16 10:30 Hgb 11.4 GM/dL (10.7-15.3) 07/25/16 10:30 Hct 36.7 % (32.4-45.2) 07/25/16 10:30 MCV 76.8 fl (80-96) L 07/25/16 10:30 MCHC 31.0 g/dl (32.0-36.0) L 07/25/16 10:30 RDW 17.9 % (11.6-15.6) H 07/25/16 10:30 Plt Count 142 K/MM3 (134-434) 07/25/16 10:30 MPV 7.6 fl (7.5-11.1) 07/25/16 10:30 CMP Sodium 141 mmol/L (136-145) 07/27/16 08:20 Potassium 4.0 mmol/L (3.5-5.1) 07/27/16 08:20 Chloride 102 mmol/L (98-107) 07/27/16 08:20 Carbon Dioxide 26 mmol/L (21-32) 07/27/16 08:20 Anion Gap 13 (8-16) 07/27/16 08:20 BUN 13 mg/dL (7-18) 07/27/16 08:20 Creatinine 0.8 mg/dL (0.55-1.02) 07/27/16 08:20 Creat Clearance w eGFR > 60 (>60) 07/21/16 06:30 Random Glucose 154 mg/dL (74-106) H 07/27/16 08:20 Calcium 7.7 mg/dL (8.5-10.1) L 07/27/16 08:20 Total Bilirubin 0.3 mg/dL (0.2-1.0) 07/21/16 06:30 AST 6 U/L (15-37) L D 07/21/16 06:30 ALT 36 U/L (12-78) 07/21/16 06:30 Alkaline Phosphatase 50 U/L (45-117) 07/21/16 06:30 Total Protein 6.3 g/dl (6.4-8.2) L 07/21/16 06:30 Albumin 3.4 g/dl (3.4-5.0) 07/21/16 06:30 CARDIAC ENZYMES Creatine Kinase 75 IU/L (26-192) 07/23/16 06:15 Troponin I < 0.02 ng/ml (0.00-0.05) 07/21/16 01:45 Current Medications Generic Name Dose Route Start Last Admin Trade Name Freq PRN Reason Stop Dose Admin Acetaminophen 650 mg 07/21/16 05:33 07/27/16 03:52 Tylenol - PO 650 mg Q6H PRN Administration FEVER OR PAIN Albuterol Sulfate 1 amp 07/21/16 10:50 07/27/16 10:40 Ventolin 0.083% Nebulizer Soln - NEB 1 amp Q4H PRN Administration SHORT OF BREATH/WHEEZING Albuterol Sulfate 1 amp 07/25/16 00:00 07/27/16 18:12 Ventolin 0.083% Nebulizer Soln - NEB 1 amp Q6HPO KAREN Administration Amlodipine Besylate 5 mg 07/27/16 12:00 07/27/16 12:55 Norvasc - PO 5 mg DAILY KAREN Administration Atorvastatin Calcium 20 mg 07/22/16 22:00 07/26/16 22:05 Lipitor - PO 20 mg HS KAREN Administration Budesonide/Formoterol Fumarate 2 puff 07/26/16 13:00 07/27/16 09:02 Symbicort 160/4.5mcg - IH 2 puff BID KAREN Administration Hydrocortisone 1 applic 07/22/16 13:00 07/27/16 09:06 Anusol 2.5% Hc Cream - TP 1 applic DAILY KAREN Administration Pantoprazole Sodium 100 mls @ 200 mls/hr 07/21/16 11:00 07/27/16 09:07 Protonix 40mg Ivpb (Pre-Docked) IVPB 200 mls/hr BID KAREN Administration Sodium Chloride 1,000 mls @ 50 mls/hr 07/23/16 13:15 07/27/16 15:21 Normal Saline - IV Not Given ASDIR KAREN Insulin Aspart 1 vial 07/22/16 16:30 07/27/16 16:43 Novolog Vial Sliding Scale - SQ 2 units ACHS KAREN Administration Protocol Methylprednisolone Sodium Succinate 60 mg 07/26/16 21:00 07/27/16 15:21 Solu-Medrol - IVPB 60 mg Q6H-IV KAREN Administration Metoclopramide HCl 5 mg 07/22/16 11:30 07/27/16 16:42 Reglan - PO 5 mg TIDAC KAREN Administration Montelukast Sodium 10 mg 07/26/16 22:00 07/26/16 21:53 Singulair - PO 10 mg HS KAREN Administration Genvoya-Patient's 1 each 07/23/16 20:00 07/27/16 09:04 Own Medication (Non- PO 1 each Formulary) DAILY KAREN Administration Nystatin 1 applic 07/21/16 11:15 07/27/16 09:06 Nystop Powder - TP 1 applic DAILY KAREN Administration Akssr-7-Byro Ethyl Esters 2 gm 07/22/16 12:45 07/27/16 09:04 Lovaza - PO 2 gm BID KAREN Administration Ondansetron HCl 4 mg 07/21/16 04:18 07/26/16 14:13 Zofran Injection IVPB 4 mg Q6H PRN Administration NAUSEA Tiotropium [place] 1 puff 07/26/16 18:00 07/27/16 09:03 Spiriva - IH 1 puff DAILY KAREN Administration Trimethoprim/Sulfamethoxazole 1 each 07/27/16 16:45 07/27/16 17:19 Bactrim Ds - PO 1 each DAILY KAREN Administration Zinc Oxide 1 applic 07/21/16 11:13 07/21/16 13:42 Desitin Diaper Rash Oint - TP 1 applic ASDIR PRN Administration HYGEINE Home Medications Medication Instructions Recorded Elviteg/Crystal/Emtric/Tenofo Ala 1 each PO DAILY 02/15/16 [Genvoya Tablet] Methylprednisolone [Medrol Dose 4 mg PO ASDIR #21 tablet 07/17/16 Rodriguez] Albuterol 0.083% Nebulizer Rach 07/26/16 [Ventolin 0.083% Nebulizer Soln -] Budesonide/Formeterol Fumarate 2 inh PO BID 07/26/16 [SYMBICORT 160/4.5mcg -] CXR: No pneumonia LUNGS: positive for diffuse wheezing HEART: S1S2 positive, RRR ASSESSMENT AND PLAN: 46 y/o lady with h/o Asthma, HIV, anemia who presented with SOB and wheezing , Abd pain N/V and rectal bleed . She was found to have Asthma exacerbation # Acute Asthma exacerbation improving with peak flow of 300 today from 160. increased her Solu MEdrol 60mg IV q8h will continue , Dr.Brill carpio. consult appreciated . cont ALbuterol Nebs QID , and PRN ; Added Singulair, Symbicort, daily Peak flow . continue Oxygen for now, Bipap prn # New onset DM: SSI now ,on oral medications at sc ( NOt metformin) #Lactic acidosis: Type B . no infectious etiology found . Probably her ALbuterol Nebs are contributing # GI bleed most like due to melena due to possible gastritis . BRBPR probably due to hemorrhoids or fissure ; EGD and colono as out pt ; f/u with Dr. Helton # SEGURA resolved today. CT scan of head with no etiology . can't fit in MRI.; ESR nl; f/u as out pt #HIV : cont Genvoya DVT Px: SCDs, early ambulation
[2016-07-27] MEDS: MONTELUKAST NA 10 MG TABLET PO SCH (22:52)
[2016-07-27] MEDS: ATORVASTATIN CA 20 MG TABLET (FP) PO SCH (22:52)
[2016-07-28 00:10] LABS: % CD 3 POS. LYMPH. 52.8 % (57.5-86.2); % CD 4 POS LYM 14.8 % (30.8-58.5); %CD3+CD4+CD8+ 1.7 % (Not Estab.); %CD3+CD4+CD8- 13.1 % (Not Estab.); %CD3+CD4-CD8+ 37.1 % (Not Estab.); %CD3+CD4-CD8- 0.8 % (Not Estab.); CD4/CD8 0.38 (0.92-3.72); CD4/CD8 NYSDOH RATIO 0.35 (Not Estab.); WHITE BLOOD COUNT 16.3 x10E3/uL (3.4-10.8)
[2016-07-28] MEDS: PANTOPRAZOLE SODIUM 100 ML IVPB SCH ×2 (00:35→11:15)
[2016-07-28] MEDS ORDERED: ONDANSETRON 4 MG TABLET PO ONE (01:57)
[2016-07-28] MEDS: methylPREDNISolone NA SUCC 125 MG/2 ML VIAL IVPB SCH ×4 (04:15→21:23)
[2016-07-28] MEDS: ALBUTEROL SO4 0.083% IH SOL 2.5 MG/3 ML VIAL.NEB. NEB SCH ×4 (05:45→23:10)
[2016-07-28] MEDS: METOCLOPRAMIDE HCL 10 MG TABLET (FP) PO SCH ×3 (06:59→16:25)
[2016-07-28] MEDS: INSULIN SLIDING SCALE (NOVOLOG) 1 VIAL SQ SCH ×4 (06:59→21:38)
[2016-07-28 08:42] LABS: CALCIUM 8.4 mg/dL (8.5-10.1); CREATININE 0.7 mg/dL (0.55-1.02); MAGNESIUM 2.3 mg/dL (1.8-2.4); PHOSPHOROUS 2.4 mg/dL (2.5-4.9)
[2016-07-28] MEDS: SULFAMETHOXAZOLE/TRIMETHOPRIM 800MG/160MG D.S. TABLET PO SCH (10:37)
[2016-07-28] MEDS: amLODIPine BESYLATE 5 MG TABLET (FP) PO SCH (10:38)
[2016-07-28] MEDS: TIOTROPIUM BROMIDE 18 MCG/INH (DEVICE W/ 5 CAPSULES) IH SCH (10:38)
[2016-07-28] MEDS: HYDROCORTISONE 2.5% TOPICAL CREAM 30 GM TUBE TP SCH (10:43)
[2016-07-28] MEDS: NYSTATIN POWDER 100,000 UNITS/GM - 15 GM TOPICAL POWDER TP SCH (10:43)
[2016-07-28] MEDS: GENVOYA PO SCH (10:43)
[2016-07-28] MEDS: BUDESONIDE/FORMETEROL FUMARATE 160/4.5 mcg INHALER IH SCH ×2 (10:56→21:21)
[2016-07-28] MEDS: PANTOPRAZOLE 40 MG TABLET (FP) PO SCH (11:28)
[2016-07-28] MEDS: OMEGA-3 ACID ETHYL ESTERS (FATTY-ACIDS) 1 GM CAPSULE (FP) PO SCH ×2 (11:28→21:24)
[2016-07-28] MEDS ORDERED: PT OWN MED DRAWER 7, Y5N ONE ×2 (12:48→21:07)
--- NOTE | 2016-07-28 14:02 | PN ---
Teaching Attending Note Name of Resident: Lida Pretty ATTENDING PHYSICIAN STATEMENT I saw and evaluated the patient. I reviewed the resident's note and discussed the case with the resident. I agree with the resident's findings and plan as documented. Patient is feeling better and happy that finally started to feel good. No fever or chills, no shortness of breath. Vital Signs Temperature 98 F 07/28/16 10:00 Pulse Rate 82 07/28/16 10:06 Respiratory Rate 18 07/28/16 10:00 Blood Pressure 143/84 07/28/16 10:00 O2 Sat by Pulse Oximetry (%) 98 07/28/16 10:06 CBCD WBC 16.3 x10E3/uL (3.4-10.8) H 07/26/16 12:30 RBC 4.78 M/mm3 (3.60-5.2) 07/25/16 10:30 Hgb 11.4 GM/dL (10.7-15.3) 07/25/16 10:30 Hct 36.7 % (32.4-45.2) 07/25/16 10:30 MCV 76.8 fl (80-96) L 07/25/16 10:30 MCHC 31.0 g/dl (32.0-36.0) L 07/25/16 10:30 RDW 17.9 % (11.6-15.6) H 07/25/16 10:30 Plt Count 142 K/MM3 (134-434) 07/25/16 10:30 MPV 7.6 fl (7.5-11.1) 07/25/16 10:30 CMP Sodium 140 mmol/L (136-145) 07/28/16 05:40 Potassium 4.2 mmol/L (3.5-5.1) 07/28/16 05:40 Chloride 103 mmol/L (98-107) 07/28/16 05:40 Carbon Dioxide 24 mmol/L (21-32) 07/28/16 05:40 Anion Gap 13 (8-16) 07/28/16 05:40 BUN 14 mg/dL (7-18) 07/28/16 05:40 Creatinine 0.7 mg/dL (0.55-1.02) 07/28/16 05:40 Creat Clearance w eGFR > 60 (>60) 07/21/16 06:30 Random Glucose 195 mg/dL (74-106) H D 07/28/16 05:40 Calcium 8.4 mg/dL (8.5-10.1) L 07/28/16 05:40 Total Bilirubin 0.3 mg/dL (0.2-1.0) 07/21/16 06:30 AST 6 U/L (15-37) L D 07/21/16 06:30 ALT 36 U/L (12-78) 07/21/16 06:30 Alkaline Phosphatase 50 U/L (45-117) 07/21/16 06:30 Total Protein 6.3 g/dl (6.4-8.2) L 07/21/16 06:30 Albumin 3.4 g/dl (3.4-5.0) 07/21/16 06:30 CARDIAC ENZYMES Creatine Kinase 75 IU/L (26-192) 07/23/16 06:15 Troponin I < 0.02 ng/ml (0.00-0.05) 07/21/16 01:45 Current Medications Generic Name Dose Route Start Last Admin Trade Name Freq PRN Reason Stop Dose Admin Acetaminophen 650 mg 07/21/16 05:33 07/27/16 03:52 Tylenol - PO 650 mg Q6H PRN Administration FEVER OR PAIN Albuterol Sulfate 1 amp 07/21/16 10:50 07/27/16 10:40 Ventolin 0.083% Nebulizer Soln - NEB 1 amp Q4H PRN Administration SHORT OF BREATH/WHEEZING Albuterol Sulfate 1 amp 07/25/16 00:00 07/28/16 11:20 Ventolin 0.083% Nebulizer Soln - NEB 1 amp Q6HPO KAREN Administration Amlodipine Besylate 5 mg 07/27/16 12:00 07/28/16 10:38 Norvasc - PO 5 mg DAILY KAREN Administration Atorvastatin Calcium 20 mg 07/22/16 22:00 07/27/16 22:52 Lipitor - PO 20 mg HS KAREN Administration Budesonide/Formoterol Fumarate 2 puff 07/26/16 13:00 07/28/16 10:56 Symbicort 160/4.5mcg - IH 2 puff BID KAREN Administration Hydrocortisone 1 applic 07/22/16 13:00 07/28/16 10:43 Anusol 2.5% Hc Cream - TP 1 applic DAILY KAREN Administration Sodium Chloride 1,000 mls @ 50 mls/hr 07/23/16 13:15 07/27/16 15:21 Normal Saline - IV Not Given ASDIR KAREN Insulin Aspart 1 vial 07/22/16 16:30 07/28/16 11:33 Novolog Vial Sliding Scale - SQ 2 units ACHS KAREN Administration Protocol Methylprednisolone Sodium Succinate 60 mg 07/26/16 21:00 07/28/16 10:38 Solu-Medrol - IVPB 60 mg Q6H-IV KAREN Administration Metoclopramide HCl 5 mg 07/22/16 11:30 07/28/16 11:28 Reglan - PO 5 mg TIDAC KAREN Administration Montelukast Sodium 10 mg 07/26/16 22:00 07/27/16 22:52 Singulair - PO 10 mg HS KAREN Administration Genvoya-Patient's 1 each 07/23/16 20:00 07/28/16 10:43 Own Medication (Non- PO 1 each Formulary) DAILY KAREN Administration Nystatin 1 applic 07/21/16 11:15 07/28/16 10:43 Nystop Powder - TP 1 applic DAILY KAREN Administration Pcgqq-0-Evri Ethyl Esters 2 gm 07/22/16 12:45 07/28/16 11:28 Lovaza - PO 2 gm BID KAREN Administration Pantoprazole Sodium 40 mg 07/28/16 11:15 07/28/16 11:28 Protonix - PO 40 mg DAILY KAREN Administration Tiotropium [place] 1 puff 07/26/16 18:00 07/28/16 10:38 Spiriva - IH 1 puff DAILY KAREN Administration Trimethoprim/Sulfamethoxazole 1 each 07/27/16 16:45 07/28/16 10:37 Bactrim Ds - PO 1 each DAILY KAREN Administration Zinc Oxide 1 applic 07/21/16 11:13 07/21/16 13:42 Desitin Diaper Rash Oint - TP 1 applic ASDIR PRN Administration HYGEINE Home Medications Medication Instructions Recorded Elviteg/Crystal/Emtric/Tenofo Ala 1 each PO DAILY 02/15/16 [Genvoya Tablet] Methylprednisolone [Medrol Dose 4 mg PO ASDIR #21 tablet 07/17/16 Rodriguez] Albuterol 0.083% Nebulizer Rach 07/26/16 [Ventolin 0.083% Nebulizer Soln -] Budesonide/Formeterol Fumarate 2 inh PO BID 07/26/16 [SYMBICORT 160/4.5mcg -] CXR: No pneumonia LUNGS: positive for diffuse wheezing HEART: S1S2 positive, RRR ASSESSMENT AND PLAN: 46 y/o lady with h/o Asthma, HIV, anemia who presented with SOB and wheezing , Abd pain N/V and rectal bleed . She was found to have Asthma exacerbation # Acute Asthma exacerbation improving with peak flow of 260 today from 160. Continue Solu MEdrol 60mg IV q8h will continue , Dr.Brill carpio. consult appreciated . cont ALbuterol Nebs QID , and PRN ; Added Singulair, Symbicort, daily Peak flow . continue Oxygen for now, Bipap prn. On Bactrim DS daily # New onset DM:On Steroids will monitor closely; SSI now ,on oral medications at home. # Acute Leukocytosis trending up due to Steroids #Lactic acidosis: Type B . no infectious etiology found . Probably her ALbuterol Nebs are contributing # GI bleed most like due to melena due to possible gastritis . BRBPR probably due to hemorrhoids or fissure ; EGD and colono as out pt ; f/u with Dr. Helton # SEGURA resolved today. CT scan of head with no etiology . can't fit in MRI.; ESR nl; f/u as out pt #HIV : cont Genvoya DVT Px: SCDs, early ambulation
[2016-07-28] MEDS: SODIUM CHLORIDE 1,000 ML IV SCH (14:33)
--- NOTE | 2016-07-28 14:39 | PN ---
Physical Exam: SUBJECTIVE: Patient seen and examined Patient resting in bed, NAD. afebrile and hemodynamically stable. On 3 L nc. States her breathing is improved, she is wheezing less and coughing up white sputum. Normal nonbloody BM today. denies chest pain, f/c, diarrhea, dysuria. Peak flow 240 OBJECTIVE: Vital Signs Period Temp Pulse Resp BP Sys/So Pulse Ox Last 24 Hr 98 F-98.3 F 80-83 18-20 127-143/52-84 96-98 GENERAL: Awake, alert, and fully oriented, mildly irritated HEAD: Normal with no signs of trauma. EYES: extraocular movements intact, sclera anicteric, conjunctiva clear. No lid lag. EARS, NOSE, THROAT: Moist mucous membranes. NECK: submental and cervical lymphadenopathy, acanthosis nigricans LUNGS: significally improved air movement, less wheezes HEART: Regular rate and rhythm, normal S1 and S2 ABDOMEN: Soft, diffusely tender, not distended, normoactive bowel sounds, no guarding, no rebound, no masses. No hepatomegaly or splenomegaly. LOWER EXTREMITIES: warm, well-perfused. No calf tenderness. trace edema. NEUROLOGICAL: Normal speech. Gait not observed. PSYCHIATRIC: Cooperative. Good eye contact. Appropriate mood and affect. SKIN: Warm, dry, small scratch under R breast, no cellulitis. small area of redness under chin near a protuberance of her nasal cannula . Laboratory Results - last 24 hr 07/26/16 07/26/16 07/27/16 12:30 12:30 16:39 WBC 16.3 H Absolute Lymphs (auto) 1.7 Lymphocytes 10 Nucleated RBCs 0 Sodium Potassium Chloride Carbon Dioxide Anion Gap BUN Creatinine POC Glucometer 176 Random Glucose Calcium Phosphorus Magnesium Lead None detected Absolute CD3 Count 898 % CD3+ Lymphocytes 52.8 L Absolute CD4 [place] 252 L % CD4+ Lymphocyte 14.8 L CD4/CD8 Ratio 0.38 L % CD8+ Lymphocyte 38.9 H Absolute CD8 Count 661 07/27/16 07/28/16 07/28/16 23:03 05:40 06:53 WBC Absolute Lymphs (auto) Lymphocytes Nucleated RBCs Sodium 140 Potassium 4.2 Chloride 103 Carbon Dioxide 24 Anion Gap 13 BUN 14 Creatinine 0.7 POC Glucometer 213 220 Random Glucose 195 H D Calcium 8.4 L Phosphorus 2.4 L Magnesium 2.3 Lead Absolute CD3 Count % CD3+ Lymphocytes Absolute CD4 [place] % CD4+ Lymphocyte CD4/CD8 Ratio % CD8+ Lymphocyte Absolute CD8 Count 07/28/16 11:31 WBC Absolute Lymphs (auto) Lymphocytes Nucleated RBCs Sodium Potassium Chloride Carbon Dioxide Anion Gap BUN Creatinine POC Glucometer 191 Random Glucose Calcium Phosphorus Magnesium Lead Absolute CD3 Count % CD3+ Lymphocytes Absolute CD4 [place] % CD4+ Lymphocyte CD4/CD8 Ratio % CD8+ Lymphocyte Absolute CD8 Count Active Medications Generic Name Dose Route Start Last Admin Trade Name Freq PRN Reason Stop Dose Admin Acetaminophen 650 mg 07/21/16 05:33 07/27/16 03:52 Tylenol - PO 650 mg Q6H PRN Administration FEVER OR PAIN Albuterol Sulfate 1 amp 07/21/16 10:50 07/27/16 10:40 Ventolin 0.083% Nebulizer Soln - NEB 1 amp Q4H PRN Administration SHORT OF BREATH/WHEEZING Albuterol Sulfate 1 amp 07/25/16 00:00 07/28/16 11:20 Ventolin 0.083% Nebulizer Soln - NEB 1 amp Q6HPO BELLE Administration Amlodipine Besylate 5 mg 07/27/16 12:00 07/28/16 10:38 Norvasc - PO 5 mg DAILY BELLE Administration Atorvastatin Calcium 20 mg 07/22/16 22:00 07/27/16 22:52 Lipitor - PO 20 mg HS BELLE Administration Budesonide/Formoterol Fumarate 2 puff 07/26/16 13:00 07/28/16 10:56 Symbicort 160/4.5mcg - IH 2 puff BID BELLE Administration Hydrocortisone 1 applic 07/22/16 13:00 07/28/16 10:43 Anusol 2.5% Hc Cream - TP 1 applic DAILY BELLE Administration Sodium Chloride 1,000 mls @ 50 mls/hr 07/23/16 13:15 07/28/16 14:33 Normal Saline - IV 50 mls/hr ASDIR BELLE Administration Insulin Aspart 1 vial 07/22/16 16:30 07/28/16 11:33 Novolog Vial Sliding Scale - SQ 2 units ACHS BELLE Administration Protocol Methylprednisolone Sodium Succinate 60 mg 07/26/16 21:00 07/28/16 10:38 Solu-Medrol - IVPB 60 mg Q6H-IV BELLE Administration Metoclopramide HCl 5 mg 07/22/16 11:30 07/28/16 11:28 Reglan - PO 5 mg TIDAC BELLE Administration Montelukast Sodium 10 mg 07/26/16 22:00 07/27/16 22:52 Singulair - PO 10 mg HS BELLE Administration Genvoya-Patient's 1 each 07/23/16 20:00 07/28/16 10:43 Own Medication (Non- PO 1 each Formulary) DAILY BELLE Administration Nystatin 1 applic 07/21/16 11:15 07/28/16 10:43 Nystop Powder - TP 1 applic DAILY BELLE Administration Tfudh-1-Zimd Ethyl Esters 2 gm 07/22/16 12:45 07/28/16 11:28 Lovaza - PO 2 gm BID BELLE Administration Pantoprazole Sodium 40 mg 07/28/16 11:15 07/28/16 11:28 Protonix - PO 40 mg DAILY BELLE Administration Tiotropium [place] 1 puff 07/26/16 18:00 07/28/16 10:38 Spiriva - IH 1 puff DAILY BELLE Administration Trimethoprim/Sulfamethoxazole 1 each 07/27/16 16:45 07/28/16 10:37 Bactrim Ds - PO 1 each DAILY BELLE Administration Zinc Oxide 1 applic 07/21/16 11:13 07/21/16 13:42 Desitin Diaper Rash Oint - TP 1 applic ASDIR PRN Administration HYGEINE ASSESSMENT/PLAN: CXR: unremarkable Repeat CXR unremarkable CT head negative CT w and w/o contrast abd negative CT w and w/o contrast Chest negative ASSESSMENT/PLAN: 46 y/o F w/PMH of asthma, HIV (on genvoya), anemia, presents to ER with SOB and wheezing. Acute on chronic asthma exacerbation -symptomatic improvement -Solumedrol IV 60 q6h day 3 -albuterol q6h belle, q 4 prn -symbicort with spacer 160 -singulair HS -pulm consult -bipap use at night -flu swab negative -3L NC -allergy testing outpatient -pulm consult appreciated -consider ENT consult Upper GIB -r/o gastritis -self reported melena -occult blood + -history of steroid use w/o GI ppx -history of GERD, abd pain -H pylori test negative -Gi appreciated, possible endoscopy when respiratory status improves -PPi PO Chronic abd pain -likley gastritis, manage as above Rectal bleed -normal bm today -possible fissure vs hemorrhoid(palpated at 6 o'clock) -CT abd/pelvis unremarkable -hold hep -h/h stable Acute gastroenteritis -viral vs bacterial -resolved -stool studies negative DM -A1C 7.9 -BGM -sliding scale HLD/ high triglycerides -lipid panel: trig 425, cholest 217, ldl 125, hdl 63 -lipitor, fish oil Leukocytosis -likely reactive due to steroids Persistent lactic acidosis -4.4 appears to be her baseline -Likely type B (many possible causes), may be due to struggle with breathing -ID consult appreciated: unlikely infectious or due to HIV/HIV meds -does not require abx -NS @ 50 HTN -norvasc 5 DINA -Creat 0.7; resolved -IVF R sided numbness. headache -CT head unremarkable -B 12 wnl -check folate, lead, TSH HIV -genvoya -last CD4 187 -CD4 now 252 Morbid obesity -nutrition counseling PPX scd, ppi FEN NS @50 lytes stable diabetic diet Dispo: [facility] [place] Visit type - Emergency Visit Emergency Visit: Yes ED Registration Date: 07/21/16 Care time: The patient presented to the Emergency Department on the above date and was hospitalized for further evaluation of their emergent condition. - New Patient This patient is new to me today: No - Critical Care Critical Care patient: No - Discharge Referral Referred to [facility] No
--- NOTE | 2016-07-28 16:27 | PN ---
Progress Note (short form) - Note Progress Note: breathing improved today Vital Signs Period Temp Pulse Resp BP Sys/So Pulse Ox Last 24 Hr 98 F-98.3 F 80-93 18-20 127-147/52-87 96-98 cor-rrr lungs bilateral wheezing abd soft,nt ext no edema CBC, BMP 07/26/16 12:30 07/28/16 05:40 a/p asthma exacerbation hiv lactic acidosis to continue same meds steroid taper per pulmonary would continue bactrim for PCP prophylaxis continue art
--- NOTE | 2016-07-28 16:36 | PN ---
Progress Note (short form) - Note Progress Note: PULMONARY OOB TO CHAIR/PEAK FLOW 250-300 L/M SLIGHT SUBJECTIVE IMPROVEMENT VSS/ANICTERIC B/L WHEEZE ANTERIOR/POSTERIOR MODERATE S1S2 BS+ SOFT OBESE LESS LOWER EXT DEPENDANT EDEMA LABS/MEDS/NOTES/IMAGING REVIEWED ACUTE EXACERBATION ASTHMA SUPER MORBID OBESITY LIKELY OSAS/OHS HIV CONTINUE CURRENT TREATMENT HOPE TO REDUCE STEROIDS SOON MONITOR DAILY PEAK FLOW Mitali MASON MD
[2016-07-28] MEDS: ATORVASTATIN CA 20 MG TABLET (FP) PO SCH (21:23)
[2016-07-28] MEDS: MONTELUKAST NA 10 MG TABLET PO SCH (21:24)
[2016-07-29] MEDS: ALBUTEROL SO4 0.083% IH SOL 2.5 MG/3 ML VIAL.NEB. NEB PRN (01:35)
[2016-07-29] MEDS: methylPREDNISolone NA SUCC 125 MG/2 ML VIAL IVPB SCH ×5 (04:10→17:16)
[2016-07-29] MEDS: METOCLOPRAMIDE HCL 10 MG TABLET (FP) PO SCH ×3 (06:37→17:14)
[2016-07-29] MEDS: INSULIN SLIDING SCALE (NOVOLOG) 1 VIAL SQ SCH ×4 (06:40→22:00)
[2016-07-29] MEDS: ALBUTEROL SO4 0.083% IH SOL 2.5 MG/3 ML VIAL.NEB. NEB SCH ×4 (06:55→23:35)
[2016-07-29] MEDS: ACETAMINOPHEN 325 MG TABLET (FP) PO PRN (08:12)
[2016-07-29] MEDS: SULFAMETHOXAZOLE/TRIMETHOPRIM 800MG/160MG D.S. TABLET PO SCH (10:18)
[2016-07-29] MEDS: PANTOPRAZOLE 40 MG TABLET (FP) PO SCH ×2 (10:18→21:54)
[2016-07-29] MEDS: OMEGA-3 ACID ETHYL ESTERS (FATTY-ACIDS) 1 GM CAPSULE (FP) PO SCH ×2 (10:18→21:55)
[2016-07-29] MEDS: amLODIPine BESYLATE 5 MG TABLET (FP) PO SCH (10:18)
[2016-07-29] MEDS: GENVOYA PO SCH (10:19)
[2016-07-29] MEDS: TIOTROPIUM BROMIDE 18 MCG/INH (DEVICE W/ 5 CAPSULES) IH SCH (10:21)
[2016-07-29] MEDS: BUDESONIDE/FORMETEROL FUMARATE 160/4.5 mcg INHALER IH SCH ×2 (10:22→21:53)
[2016-07-29] MEDS: HYDROCORTISONE 2.5% TOPICAL CREAM 30 GM TUBE TP SCH (10:24)
[2016-07-29] MEDS: NYSTATIN POWDER 100,000 UNITS/GM - 15 GM TOPICAL POWDER TP SCH (10:27)
--- NOTE | 2016-07-29 11:01 | PN ---
Progress Note (short form) - Note Progress Note: Patient is feeling better, but c/o having abdominal pain. Vital Signs Temperature 98.5 F 07/29/16 06:55 Pulse Rate 76 07/29/16 06:55 Respiratory Rate 20 07/29/16 06:55 Blood Pressure 151/91 07/29/16 06:55 O2 Sat by Pulse Oximetry (%) 96 07/28/16 21:00 GENERAL: Awake, alert, and fully oriented, nice female. HEAD: Normal with no signs of trauma. EYES: extraocular movements intact, sclera anicteric, conjunctiva clear. EARS, NOSE, THROAT: Moist mucous membranes. NECK: submental and cervical lymphadenopathy, acanthosis nigricans LUNGS: positive wheezing diffusely HEART: Regular rate and rhythm, normal S1 and S2 ABDOMEN: Soft, diffusely tender, not distended, normoactive bowel sounds, no guarding, no rebound, no masses. No hepatomegaly or splenomegaly. LOWER EXTREMITIES: warm, well-perfused. No calf tenderness. trace edema. NEUROLOGICAL: Normal speech. Gait not observed. PSYCHIATRIC: Cooperative. Good eye contact. Appropriate mood and affect. SKIN: Warm, dry, CBCD WBC 16.3 x10E3/uL (3.4-10.8) H 07/26/16 12:30 RBC 4.78 M/mm3 (3.60-5.2) 07/25/16 10:30 Hgb 11.4 GM/dL (10.7-15.3) 07/25/16 10:30 Hct 36.7 % (32.4-45.2) 07/25/16 10:30 MCV 76.8 fl (80-96) L 07/25/16 10:30 MCHC 31.0 g/dl (32.0-36.0) L 07/25/16 10:30 RDW 17.9 % (11.6-15.6) H 07/25/16 10:30 Plt Count 142 K/MM3 (134-434) 07/25/16 10:30 MPV 7.6 fl (7.5-11.1) 07/25/16 10:30 CMP Sodium 140 mmol/L (136-145) 07/28/16 05:40 Potassium 4.2 mmol/L (3.5-5.1) 07/28/16 05:40 Chloride 103 mmol/L (98-107) 07/28/16 05:40 Carbon Dioxide 24 mmol/L (21-32) 07/28/16 05:40 Anion Gap 13 (8-16) 07/28/16 05:40 BUN 14 mg/dL (7-18) 07/28/16 05:40 Creatinine 0.7 mg/dL (0.55-1.02) 07/28/16 05:40 Creat Clearance w eGFR > 60 (>60) 07/21/16 06:30 Random Glucose 195 mg/dL (74-106) H D 07/28/16 05:40 Calcium 8.4 mg/dL (8.5-10.1) L 07/28/16 05:40 Total Bilirubin 0.3 mg/dL (0.2-1.0) 07/21/16 06:30 AST 6 U/L (15-37) L D 07/21/16 06:30 ALT 36 U/L (12-78) 07/21/16 06:30 Alkaline Phosphatase 50 U/L (45-117) 07/21/16 06:30 Total Protein 6.3 g/dl (6.4-8.2) L 07/21/16 06:30 Albumin 3.4 g/dl (3.4-5.0) 07/21/16 06:30 CARDIAC ENZYMES Creatine Kinase 75 IU/L (26-192) 07/23/16 06:15 Troponin I < 0.02 ng/ml (0.00-0.05) 07/21/16 01:45 Current Medications Generic Name Dose Route Start Last Admin Trade Name Lauryn PRN Reason Stop Dose Admin Acetaminophen 650 mg 07/21/16 05:33 07/29/16 08:12 Tylenol - PO 650 mg Q6H PRN Administration FEVER OR PAIN Albuterol Sulfate 1 amp 07/21/16 10:50 07/29/16 01:35 Ventolin 0.083% Nebulizer Soln - NEB 1 amp Q4H PRN Administration SHORT OF BREATH/WHEEZING Albuterol Sulfate 1 amp 07/25/16 00:00 07/29/16 06:55 Ventolin 0.083% Nebulizer Soln - NEB 1 amp Q6HPO KAREN Administration Amlodipine Besylate 5 mg 07/27/16 12:00 07/29/16 10:18 Norvasc - PO 5 mg DAILY KAREN Administration Atorvastatin Calcium 20 mg 07/22/16 22:00 07/28/16 21:23 Lipitor - PO 20 mg HS KAREN Administration Budesonide/Formoterol Fumarate 2 puff 07/26/16 13:00 07/29/16 10:22 Symbicort 160/4.5mcg - IH 2 puff BID KAREN Administration Hydrocortisone 1 applic 07/22/16 13:00 07/29/16 10:24 Anusol 2.5% Hc Cream - TP 1 applic DAILY KAREN Administration Sodium Chloride 1,000 mls @ 50 mls/hr 07/23/16 13:15 07/28/16 14:33 Normal Saline - IV 50 mls/hr ASDIR KAREN Administration Insulin Aspart 1 vial 07/22/16 16:30 07/29/16 06:40 Novolog Vial Sliding Scale - SQ 2 units ACHS KAREN Administration Protocol Methylprednisolone Sodium Succinate 60 mg 07/26/16 21:00 07/29/16 10:17 Solu-Medrol - IVPB 60 mg Q6H-IV KAREN Administration Metoclopramide HCl 5 mg 07/22/16 11:30 07/29/16 06:37 Reglan - PO 5 mg TIDAC KAREN Administration Montelukast Sodium 10 mg 07/26/16 22:00 07/28/16 21:24 Singulair - PO 10 mg HS KAREN Administration Genvoya-Patient's 1 each 07/23/16 20:00 07/29/16 10:19 Own Medication (Non- PO 1 each Formulary) DAILY KAREN Administration Nystatin 1 applic 07/21/16 11:15 07/29/16 10:27 Nystop Powder - TP 1 applic DAILY KAREN Administration Qwdes-1-Dhcq Ethyl Esters 2 gm 07/22/16 12:45 07/29/16 10:18 Lovaza - PO 2 gm BID KAREN Administration Pantoprazole Sodium 40 mg 07/28/16 11:15 07/29/16 10:18 Protonix - PO 40 mg DAILY KAREN Administration Tiotropium [place] 1 puff 07/26/16 18:00 07/29/16 10:21 Spiriva - IH 1 puff DAILY KAREN Administration Trimethoprim/Sulfamethoxazole 1 each 07/27/16 16:45 07/29/16 10:18 Bactrim Ds - PO 1 each DAILY KAREN Administration Zinc Oxide 1 applic 07/21/16 11:13 07/21/16 13:42 Desitin Diaper Rash Oint - TP 1 applic ASDIR PRN Administration HYGEINE Home Medications Medication Instructions Recorded Elviteg/Crystal/Emtric/Tenofo Ala 1 each PO DAILY 02/15/16 [Genvoya Tablet] Methylprednisolone [Medrol Dose 4 mg PO ASDIR #21 tablet 07/17/16 Rodriguez] Albuterol 0.083% Nebulizer Rach 07/26/16 [Ventolin 0.083% Nebulizer Soln -] Budesonide/Formeterol Fumarate 2 inh PO BID 07/26/16 [SYMBICORT 160/4.5mcg -] Urine Test Results Urine Color Ltyellow 07/21/16 01:45 Urine Appearance Clear 07/21/16 01:45 Urine pH 6.0 (5.0-8.0) 07/21/16 01:45 Ur Specific [place] 1.016 (1.001-1.035) 07/21/16 01:45 Urine Protein Negative (NEGATIVE) 07/21/16 01:45 Urine Glucose (UA) 2+ (NEGATIVE) H 07/21/16 01:45 Urine Ketones Negative (NEGATIVE) 07/21/16 01:45 Urine Blood 1+ (NEGATIVE) H 07/21/16 01:45 Urine Nitrite Negative (NEGATIVE) 07/21/16 01:45 Urine Bilirubin Negative (NEGATIVE) 07/21/16 01:45 Ur Leukocyte Esterase 2+ (NEGATIVE) H 07/21/16 01:45 Urine RBC 2 /hpf (0-3) 07/21/16 01:45 Urine WBC 12 /hpf (3-5) 07/21/16 01:45 Ur Epithelial Cells Rare /hpf (FEW) 07/21/16 01:45 INR, PTT INR 1.07 (0.82-1.09) 07/21/16 01:45 ASSESSMENT AND PLAN: 46 y/o lady with h/o Asthma, HIV, anemia who presented with SOB and wheezing , Abd pain N/V and rectal bleed . She was found to have Asthma exacerbation # Acute Asthma exacerbation. pAtient is feeling better , peak flow is improving . Continue Solu MEdrol 60mg IV q8h will continue , pulmonary on the case. cont ALbuterol Nebs QID , and PRN ; Added Singulair, Symbicort, daily Peak flow . continue Oxygen for now, Bipap prn. On Bactrim DS daily as per ID # New onset DM:On Steroids will monitor closely; SSI now ,on oral medications at home. # Acute Leukocytosis trending up due to Steroids # GI bleed most like due to melena due to possible gastritis . BRBPR probably due to hemorrhoids or fissure ; EGD and colono as out pt ; f/u with Dr. Helton Protonix bid will increase the dose. # SEGURA resolved today. CT scan of head with no etiology . can't fit in MRI.; ESR nl; f/u as out pt #HIV : cont Genvoya DVT Px: SCDs, early ambulation Visit type - Emergency Visit Emergency Visit: Yes ED Registration Date: 07/21/16 Care time: The patient presented to the Emergency Department on the above date and was hospitalized for further evaluation of their emergent condition. - New Patient This patient is new to me today: No - Critical Care Critical Care patient: No
[2016-07-29] MEDS: SODIUM CHLORIDE 1,000 ML IV SCH ×2 (12:47→13:15)
--- NOTE | 2016-07-29 13:12 | PN ---
Progress Note (short form) - Note Progress Note: Breathing feels about the same as yesterday. Still with congested cough and wheezing. (+) sore throat PEF increased to 260 Intake & Output 07/26/16 07/27/16 07/28/16 07/29/16 23:59 23:59 23:59 23:59 Intake Total 2550 1525 2350 700 Balance 2550 1525 2350 700 Last Vital Signs Temp Pulse Resp BP Pulse Ox 98.9 F 99 H 20 140/79 99 07/29/16 09:38 07/29/16 09:38 07/29/16 09:38 07/29/16 09:38 07/29/16 11:37 Active Medications Acetaminophen (Tylenol -) 650 mg PO Q6H PRN PRN Reason: FEVER OR PAIN Last Admin: 07/29/16 08:12 Dose: 650 mg Albuterol Sulfate (Ventolin 0.083% Nebulizer Soln -) 1 amp NEB Q4H PRN PRN Reason: SHORT OF BREATH/WHEEZING Last Admin: 07/29/16 01:35 Dose: 1 amp Albuterol Sulfate (Ventolin 0.083% Nebulizer Soln -) 1 amp NEB Q6HPO KAREN Last Admin: 07/29/16 11:30 Dose: 1 amp Amlodipine Besylate (Norvasc -) 5 mg PO DAILY KAREN Last Admin: 07/29/16 10:18 Dose: 5 mg Atorvastatin Calcium (Lipitor -) 20 mg PO HS KAREN Last Admin: 07/28/16 21:23 Dose: 20 mg Budesonide/Formoterol Fumarate (Symbicort 160/4.5mcg -) 2 puff IH BID KAREN Last Admin: 07/29/16 10:22 Dose: 2 puff Hydrocortisone (Anusol 2.5% Hc Cream -) 1 applic TP DAILY KAREN Last Admin: 07/29/16 10:24 Dose: 1 applic Sodium Chloride (Normal Saline -) 1,000 mls @ 50 mls/hr IV ASDIR KAREN Last Admin: 07/29/16 12:47 Dose: 50 mls/hr Insulin Aspart (Novolog Vial Sliding Scale -) 1 vial SQ ACHS KAREN PRN Reason: Protocol Last Admin: 07/29/16 12:06 Dose: 4 units Methylprednisolone Sodium Succinate (Solu-Medrol -) 60 mg IVPB Q6H-IV [facility] Last Admin: 07/29/16 10:17 Dose: 60 mg Metoclopramide HCl (Reglan -) 5 mg PO TIDAC [facility] Last Admin: 07/29/16 12:09 Dose: 5 mg Montelukast Sodium (Singulair -) 10 mg PO HS [facility] Last Admin: 07/28/16 21:24 Dose: 10 mg Genvoya-Patient's Own Medication (Non- Formulary) 1 each PO DAILY [facility] Last Admin: 07/29/16 10:19 Dose: 1 each Nystatin (Nystop Powder -) 1 applic TP DAILY [facility] Last Admin: 07/29/16 10:27 Dose: 1 applic Epvzz-7-Rzpi Ethyl Esters (Lovaza -) 2 gm PO BID [facility] Last Admin: 07/29/16 10:18 Dose: 2 gm Pantoprazole Sodium (Protonix -) 40 mg PO DAILY [facility] Last Admin: 07/29/16 10:18 Dose: 40 mg Tiotropium [place] (Spiriva -) 1 puff IH DAILY [facility] Last Admin: 07/29/16 10:21 Dose: 1 puff Trimethoprim/Sulfamethoxazole (Bactrim Ds -) 1 each PO DAILY [facility] Last Admin: 07/29/16 10:18 Dose: 1 each Zinc Oxide (Desitin Diaper Rash Oint -) 1 applic TP ASDIR PRN PRN Reason: HYGEINE Last Admin: 07/21/16 13:42 Dose: 1 applic Gen: mildly tachypneic with speaking. Heart: RRR Lung: distant breath sounds, + rhonchi, wheezes Abd: soft, nontender, obese Ext: + edema Laboratory Results - last 24 hr 07/28/16 07/28/16 07/29/16 16:21 21:37 06:39 POC Glucometer 202 206 184 07/29/16 11:13 POC Glucometer 220 A/P Acute Asthma Exacerbation Morbid Obesity PUMA Lactic Acidosis HIV - continue medrol at current dose - inhaled bronchodilators - singulair - monitor peak flow - O2 as needed - CPAP at night - DVT prophylaxis - Cepacol Dr Dai
[2016-07-29] MEDS: BENZOCAINE/MENTH/CETYLPYRD CL 1 EACH LOZENGE MM PRN (16:09)
[2016-07-29] MEDS: MONTELUKAST NA 10 MG TABLET PO SCH (21:54)
[2016-07-29] MEDS: ATORVASTATIN CA 20 MG TABLET (FP) PO SCH (21:54)
[2016-07-30] MEDS: ACETAMINOPHEN 325 MG TABLET (FP) PO PRN ×2 (01:43→22:59)
[2016-07-30] MEDS: BENZOCAINE/MENTH/CETYLPYRD CL 1 EACH LOZENGE MM PRN ×2 (01:46→09:32)
[2016-07-30] MEDS ORDERED: PT OWN MED DRAWER 7, Y5N ONE ×3 (01:46→17:52)
[2016-07-30] MEDS: INSULIN SLIDING SCALE (NOVOLOG) 1 VIAL SQ SCH ×4 (06:14→22:15)
[2016-07-30] MEDS: METOCLOPRAMIDE HCL 10 MG TABLET (FP) PO SCH ×3 (06:14→16:59)
[2016-07-30] MEDS: ALBUTEROL SO4 0.083% IH SOL 2.5 MG/3 ML VIAL.NEB. NEB PRN (06:15)
[2016-07-30] MEDS: SODIUM CHLORIDE 1,000 ML IV SCH ×2 (06:21→13:48)
[2016-07-30] MEDS: GENVOYA PO SCH (09:27)
[2016-07-30] MEDS: PANTOPRAZOLE 40 MG TABLET (FP) PO SCH ×2 (09:27→22:14)
[2016-07-30] MEDS: SULFAMETHOXAZOLE/TRIMETHOPRIM 800MG/160MG D.S. TABLET PO SCH (09:27)
[2016-07-30] MEDS: OMEGA-3 ACID ETHYL ESTERS (FATTY-ACIDS) 1 GM CAPSULE (FP) PO SCH ×2 (09:27→22:15)
[2016-07-30] MEDS: amLODIPine BESYLATE 5 MG TABLET (FP) PO SCH (09:27)
[2016-07-30] MEDS: TIOTROPIUM BROMIDE 18 MCG/INH (DEVICE W/ 5 CAPSULES) IH SCH (09:28)
[2016-07-30] MEDS: BUDESONIDE/FORMETEROL FUMARATE 160/4.5 mcg INHALER IH SCH ×2 (09:28→22:14)
[2016-07-30] MEDS: HYDROCORTISONE 2.5% TOPICAL CREAM 30 GM TUBE TP SCH (09:29)
[2016-07-30] MEDS: NYSTATIN POWDER 100,000 UNITS/GM - 15 GM TOPICAL POWDER TP SCH (09:29)
--- NOTE | 2016-07-30 11:47 | PN ---
Physical Exam: SUBJECTIVE: Patient seen and examined Patient resting in bed, NAD. afebrile and hemodynamically stable. On 3 L nc. States her breathing is the same, she is wheezing and coughing up very thick secretions, having a hard time clearing them out. Normal nonbloody BM today. denies chest pain, f/c, diarrhea. Complains of dysuria. Peak flow 230 -250 OBJECTIVE: Vital Signs Period Temp Pulse Resp BP Sys/So Pulse Ox Last 24 Hr 97.7 F-98.1 F 76-95 20-22 125-154/72-92 97-98 GENERAL: Awake, alert, and fully oriented, mildly irritated HEAD: Normal with no signs of trauma. EYES: extraocular movements intact, sclera anicteric, conjunctiva clear. No lid lag. EARS, NOSE, THROAT: Moist mucous membranes. NECK: submental and cervical lymphadenopathy, acanthosis nigricans LUNGS: stable air movement from fri, diffuse wheezes HEART: Regular rate and rhythm, normal S1 and S2 ABDOMEN: Soft, diffusely tender, not distended, normoactive bowel sounds, no guarding, no rebound, no masses. No hepatomegaly or splenomegaly. LOWER EXTREMITIES: warm, well-perfused. No calf tenderness. trace edema. NEUROLOGICAL: Normal speech. Gait not observed. PSYCHIATRIC: Cooperative. Good eye contact. Appropriate mood and affect. SKIN: Warm, dry, small scratch under R breast, no cellulitis. small area of redness under chin near a protuberance of her nasal cannula . Laboratory Results - last 24 hr 07/29/16 07/29/16 07/29/16 16:00 16:08 21:59 POC Glucometer 202 222 Stool Occult Blood Negative 07/30/16 07/30/16 06:09 10:55 POC Glucometer 177 141 Stool Occult Blood Active Medications Generic Name Dose Route Start Last Admin Trade Name Freq PRN Reason Stop Dose Admin Acetaminophen 650 mg 07/21/16 05:33 07/30/16 01:43 Tylenol - PO 650 mg Q6H PRN Administration FEVER OR PAIN Amlodipine Besylate 5 mg 07/27/16 12:00 07/30/16 09:27 Norvasc - PO 5 mg DAILY BELLE Administration Atorvastatin Calcium 20 mg 07/22/16 22:00 07/29/16 21:54 Lipitor - PO 20 mg HS BELLE Administration Benzocaine/Menthol 1 each 07/29/16 13:12 07/30/16 09:32 Cepacol Lozenge - MM 1 each Q4H PRN Administration SORE THROAT Budesonide/Formoterol Fumarate 2 puff 07/26/16 13:00 07/30/16 09:28 Symbicort 160/4.5mcg - IH 2 puff BID BELLE Administration Hydrocortisone 1 applic 07/22/16 13:00 07/30/16 09:29 Anusol 2.5% Hc Cream - TP 1 applic DAILY BELLE Administration Sodium Chloride 1,000 mls @ 50 mls/hr 07/23/16 13:15 07/30/16 06:21 Normal Saline - IV 50 mls/hr ASDIR BELLE Administration Insulin Aspart 1 vial 07/22/16 16:30 07/30/16 10:57 Novolog Vial Sliding Scale - SQ Not Given ACHS BELLE Protocol Methylprednisolone Sodium Succinate 60 mg 07/30/16 23:00 Solu-Medrol - IVPB Q8H-IV BELLE Metoclopramide HCl 5 mg 07/22/16 11:30 07/30/16 11:00 Reglan - PO 5 mg TIDAC BELLE Administration Montelukast Sodium 10 mg 07/26/16 22:00 07/29/16 21:54 Singulair - PO 10 mg HS BELLE Administration Genvoya-Patient's 1 each 07/23/16 20:00 07/30/16 09:27 Own Medication (Non- PO 1 each Formulary) DAILY BELLE Administration Nystatin 1 applic 07/21/16 11:15 07/30/16 09:29 Nystop Powder - TP 1 applic DAILY BELLE Administration Sgvxx-5-Xomx Ethyl Esters 2 gm 07/22/16 12:45 07/30/16 09:27 Lovaza - PO 2 gm BID BELLE Administration Pantoprazole Sodium 40 mg 07/29/16 22:00 07/30/16 09:27 Protonix - PO 40 mg BID BELLE Administration Tiotropium [place] 1 puff 07/26/16 18:00 07/30/16 09:28 Spiriva - IH 1 puff DAILY BELLE Administration Trimethoprim/Sulfamethoxazole 1 each 07/27/16 16:45 07/30/16 09:27 Bactrim Ds - PO 1 each DAILY BELLE Administration Zinc Oxide 1 applic 07/21/16 11:13 07/21/16 13:42 Desitin Diaper Rash Oint - TP 1 applic ASDIR PRN Administration HYGEINE ASSESSMENT/PLAN: CXR: unremarkable Repeat CXR unremarkable CT head negative CT w and w/o contrast abd negative CT w and w/o contrast Chest negative ASSESSMENT/PLAN: 46 y/o F w/PMH of asthma, HIV (on genvoya), anemia, presents to ER with SOB and wheezing. Acute on chronic asthma exacerbation -symptomatic improvement -Solumedrol IV 60 q6h day 5 -albuterol q6h belle, q 4 prn /ass mucomyst -symbicort with spacer 160 -singulair HS -pulm consult -bipap use at night -flu swab negative -3L NC -allergy testing outpatient -pulm consult appreciated -consider ENT consult Dysuria -UA, urine culture. Upper GIB -r/o gastritis -self reported melena -occult blood + -history of steroid use w/o GI ppx -history of GERD, abd pain -H pylori test negative -Gi appreciated, possible endoscopy when respiratory status improves -PPi PO Chronic abd pain -likley gastritis, manage as above Rectal bleed -normal bm today -possible fissure vs hemorrhoid(palpated at 6 o'clock) -CT abd/pelvis unremarkable -hold hep -h/h stable Acute gastroenteritis -viral vs bacterial -resolved -stool studies negative DM -A1C 7.9 -BGM -sliding scale HLD/ high triglycerides -lipid panel: trig 425, cholest 217, ldl 125, hdl 63 -lipitor, fish oil Leukocytosis -likely reactive due to steroids Persistent lactic acidosis -4.4 appears to be her baseline -Likely type B (many possible causes), may be due to struggle with breathing -ID consult appreciated: unlikely infectious or due to HIV/HIV meds -does not require abx -NS @ 50 HTN -norvasc 5 DINA -Creat 0.7; resolved -IVF R sided numbness. headache -CT head unremarkable -B 12 wnl -check folate, lead, TSH HIV -genvoya -last CD4 187 -CD4 now 252 Morbid obesity -nutrition counseling PPX scd, ppi FEN NS @50 lytes stable diabetic diet Dispo: [facility] [place] Visit type - Emergency Visit Emergency Visit: Yes ED Registration Date: 07/21/16 Care time: The patient presented to the Emergency Department on the above date and was hospitalized for further evaluation of their emergent condition. - New Patient This patient is new to me today: No - Critical Care Critical Care patient: No - Discharge Referral Referred to [facility] No
--- NOTE | 2016-07-30 11:49 | PN ---
Progress Note (short form) - Note Progress Note: Breathing feels a little worse than yesterday. Still with congested cough and wheezing. sore throat a bit better. Intake & Output 07/27/16 07/28/16 07/29/16 07/30/16 23:59 23:59 23:59 23:59 Intake Total 1525 2350 2950 850 Balance 1525 2350 2950 850 Last Vital Signs Temp Pulse Resp BP Pulse Ox 97.8 F 83 22 125/72 98 07/30/16 09:00 07/30/16 09:00 07/30/16 09:00 07/30/16 09:00 07/30/16 09:00 Active Medications Acetaminophen (Tylenol -) 650 mg PO Q6H PRN PRN Reason: FEVER OR PAIN Last Admin: 07/30/16 01:43 Dose: 650 mg Amlodipine Besylate (Norvasc -) 5 mg PO DAILY [facility] Last Admin: 07/30/16 09:27 Dose: 5 mg Atorvastatin Calcium (Lipitor -) 20 mg PO HS [facility] Last Admin: 07/29/16 21:54 Dose: 20 mg Benzocaine/Menthol (Cepacol Lozenge -) 1 each MM Q4H PRN PRN Reason: SORE THROAT Last Admin: 07/30/16 09:32 Dose: 1 each Budesonide/Formoterol Fumarate (Symbicort 160/4.5mcg -) 2 puff IH BID [facility] Last Admin: 07/30/16 09:28 Dose: 2 puff Hydrocortisone (Anusol 2.5% Hc Cream -) 1 applic TP DAILY [facility] Last Admin: 07/30/16 09:29 Dose: 1 applic Sodium Chloride (Normal Saline -) 1,000 mls @ 50 mls/hr IV ASDIR [facility] Last Admin: 07/30/16 06:21 Dose: 50 mls/hr Insulin Aspart (Novolog Vial Sliding Scale -) 1 vial SQ ACHS [facility] PRN Reason: Protocol Last Admin: 07/30/16 10:57 Dose: Not Given Methylprednisolone Sodium Succinate (Solu-Medrol -) 60 mg IVPB Q8H-IV KAREN Metoclopramide HCl (Reglan -) 5 mg PO TIDAC [facility] Last Admin: 07/30/16 11:00 Dose: 5 mg Montelukast Sodium (Singulair -) 10 mg PO HS [facility] Last Admin: 07/29/16 21:54 Dose: 10 mg Genvoya-Patient's Own Medication (Non- Formulary) 1 each PO DAILY [facility] Last Admin: 07/30/16 09:27 Dose: 1 each Nystatin (Nystop Powder -) 1 applic TP DAILY [facility] Last Admin: 07/30/16 09:29 Dose: 1 applic Ffrdi-0-Tnhu Ethyl Esters (Lovaza -) 2 gm PO BID [facility] Last Admin: 07/30/16 09:27 Dose: 2 gm Pantoprazole Sodium (Protonix -) 40 mg PO BID [facility] Last Admin: 07/30/16 09:27 Dose: 40 mg Tiotropium [place] (Spiriva -) 1 puff IH DAILY [facility] Last Admin: 07/30/16 09:28 Dose: 1 puff Trimethoprim/Sulfamethoxazole (Bactrim Ds -) 1 each PO DAILY [facility] Last Admin: 07/30/16 09:27 Dose: 1 each Zinc Oxide (Desitin Diaper Rash Oint -) 1 applic TP ASDIR PRN PRN Reason: HYGEINE Last Admin: 07/21/16 13:42 Dose: 1 applic Gen: mildly tachypneic with speaking. Heart: RRR Lung: distant breath sounds, + rhonchi, wheezes Abd: soft, nontender, obese Ext: + edema Laboratory Results - last 24 hr 07/29/16 07/29/16 07/29/16 16:00 16:08 21:59 POC Glucometer 202 222 Stool Occult Blood Negative 07/30/16 07/30/16 06:09 10:55 POC Glucometer 177 141 Stool Occult Blood A/P Acute Asthma Exacerbation Morbid Obesity PUMA Lactic Acidosis HIV - Albuterol / Mucomyst - continue medrol at current dose - inhaled bronchodilators - singulair - monitor peak flow - O2 as needed - CPAP at night - DVT prophylaxis - Cepacol Dr Dai
--- NOTE | 2016-07-30 12:45 | PN ---
Teaching Attending Note Name of Resident: Lida Pretty ATTENDING PHYSICIAN STATEMENT I saw and evaluated the patient. I reviewed the resident's note and discussed the case with the resident. I agree with the resident's findings and plan as documented. Still wheezing with no shortness of breath, stated that her secretions are getting thicker. Vital Signs Temperature 97.8 F 07/30/16 09:00 Pulse Rate 83 07/30/16 09:00 Respiratory Rate 22 07/30/16 09:00 Blood Pressure 125/72 07/30/16 09:00 O2 Sat by Pulse Oximetry (%) 98 07/30/16 09:00 CBCD WBC 16.3 x10E3/uL (3.4-10.8) H 07/26/16 12:30 RBC 4.78 M/mm3 (3.60-5.2) 07/25/16 10:30 Hgb 11.4 GM/dL (10.7-15.3) 07/25/16 10:30 Hct 36.7 % (32.4-45.2) 07/25/16 10:30 MCV 76.8 fl (80-96) L 07/25/16 10:30 MCHC 31.0 g/dl (32.0-36.0) L 07/25/16 10:30 RDW 17.9 % (11.6-15.6) H 07/25/16 10:30 Plt Count 142 K/MM3 (134-434) 07/25/16 10:30 MPV 7.6 fl (7.5-11.1) 07/25/16 10:30 CMP Sodium 140 mmol/L (136-145) 07/28/16 05:40 Potassium 4.2 mmol/L (3.5-5.1) 07/28/16 05:40 Chloride 103 mmol/L (98-107) 07/28/16 05:40 Carbon Dioxide 24 mmol/L (21-32) 07/28/16 05:40 Anion Gap 13 (8-16) 07/28/16 05:40 BUN 14 mg/dL (7-18) 07/28/16 05:40 Creatinine 0.7 mg/dL (0.55-1.02) 07/28/16 05:40 Creat Clearance w eGFR > 60 (>60) 07/21/16 06:30 Random Glucose 195 mg/dL (74-106) H D 07/28/16 05:40 Calcium 8.4 mg/dL (8.5-10.1) L 07/28/16 05:40 Total Bilirubin 0.3 mg/dL (0.2-1.0) 07/21/16 06:30 AST 6 U/L (15-37) L D 07/21/16 06:30 ALT 36 U/L (12-78) 07/21/16 06:30 Alkaline Phosphatase 50 U/L (45-117) 07/21/16 06:30 Total Protein 6.3 g/dl (6.4-8.2) L 07/21/16 06:30 Albumin 3.4 g/dl (3.4-5.0) 07/21/16 06:30 CARDIAC ENZYMES Creatine Kinase 75 IU/L (26-192) 07/23/16 06:15 Troponin I < 0.02 ng/ml (0.00-0.05) 07/21/16 01:45 Current Medications Generic Name Dose Route Start Last Admin Trade Name Freq PRN Reason Stop Dose Admin Acetaminophen 650 mg 07/21/16 05:33 07/30/16 01:43 Tylenol - PO 650 mg Q6H PRN Administration FEVER OR PAIN Acetylcysteine 200 mg 07/30/16 12:00 Mucomyst 20 Oral / Inh Use Only* NEB BID KAREN Albuterol Sulfate 1 amp 07/30/16 12:00 Ventolin 0.083% Nebulizer Soln - NEB BID KAREN Amlodipine Besylate 10 mg 07/31/16 10:00 Norvasc - PO DAILY KAREN Atorvastatin Calcium 20 mg 07/22/16 22:00 07/29/16 21:54 Lipitor - PO 20 mg HS KAREN Administration Benzocaine/Menthol 1 each 07/29/16 13:12 07/30/16 09:32 Cepacol Lozenge - MM 1 each Q4H PRN Administration SORE THROAT Budesonide/Formoterol Fumarate 2 puff 07/26/16 13:00 07/30/16 09:28 Symbicort 160/4.5mcg - IH 2 puff BID KAREN Administration Hydrocortisone 1 applic 07/22/16 13:00 07/30/16 09:29 Anusol 2.5% Hc Cream - TP 1 applic DAILY KAREN Administration Sodium Chloride 1,000 mls @ 50 mls/hr 07/23/16 13:15 07/30/16 06:21 Normal Saline - IV 50 mls/hr ASDIR KAREN Administration Insulin Aspart 1 vial 07/22/16 16:30 07/30/16 10:57 Novolog Vial Sliding Scale - SQ Not Given ACHS KAREN Protocol Methylprednisolone Sodium Succinate 60 mg 07/30/16 23:00 Solu-Medrol - IVPB Q8H-IV KAREN Metoclopramide HCl 5 mg 07/22/16 11:30 07/30/16 11:00 Reglan - PO 5 mg TIDAC KAREN Administration Montelukast Sodium 10 mg 07/26/16 22:00 07/29/16 21:54 Singulair - PO 10 mg HS KAREN Administration Genvoya-Patient's 1 each 07/23/16 20:00 07/30/16 09:27 Own Medication (Non- PO 1 each Formulary) DAILY KAREN Administration Nystatin 1 applic 07/21/16 11:15 07/30/16 09:29 Nystop Powder - TP 1 applic DAILY KAREN Administration Vzzho-1-Bvfx Ethyl Esters 2 gm 07/22/16 12:45 07/30/16 09:27 Lovaza - PO 2 gm BID KAREN Administration Pantoprazole Sodium 40 mg 07/29/16 22:00 07/30/16 09:27 Protonix - PO 40 mg BID KAREN Administration Sodium Chloride 2 spray 07/30/16 12:45 [place] Nasal [place] - NS BID PRN NASAL CONGESTION Tiotropium [place] 1 puff 07/26/16 18:00 07/30/16 09:28 Spiriva - IH 1 puff DAILY KAREN Administration Trimethoprim/Sulfamethoxazole 1 each 07/27/16 16:45 07/30/16 09:27 Bactrim Ds - PO 1 each DAILY KAREN Administration Zinc Oxide 1 applic 07/21/16 11:13 07/21/16 13:42 Desitin Diaper Rash Oint - TP 1 applic ASDIR PRN Administration HYGEINE Home Medications Medication Instructions Recorded Elviteg/Crystal/Emtric/Tenofo Ala 1 each PO DAILY 02/15/16 [Genvoya Tablet] Methylprednisolone [Medrol Dose 4 mg PO ASDIR #21 tablet 07/17/16 Rodriguez] Albuterol 0.083% Nebulizer Rcah 07/26/16 [Ventolin 0.083% Nebulizer Soln -] Budesonide/Formeterol Fumarate 2 inh PO BID 07/26/16 [SYMBICORT 160/4.5mcg -] Laboratory Tests 07/23/16 07/24/16 07/25/16 06:15 06:30 07:00 WBC 13.3 H D 13.6 H 13.6 H 07/25/16 07/26/16 10:30 12:30 WBC 14.7 H 16.3 H Gen: Morbidly obese Chest : positive for wheezing bl, GAE ASSESSMENT AND PLAN: 46 y/o lady with h/o Asthma, HIV, anemia who presented with SOB and wheezing , Abd pain N/V and rectal bleed . She was found to have Asthma exacerbation # Acute Asthma exacerbation improving but havinf more wheeze now, breathing better though. peak flow is still in 260's poor effort. Continue Solu MEdrol 60mg IV q8h will continue , pulmonary on the case. cont ALbuterol Nebs QID , and PRN ; Added Singulair, Symbicort, daily Peak flow . continue Oxygen for now , Bipap prn. On Bactrim DS daily as per ID, added mucomyst since has thick secretions that she is not able to expectorate. # New onset DM: On Steroids will monitor closely; SSI now ,on oral medications at home. # Acute Leukocytosis continues to trend up due to Steroids will start tapering off the steroids # GI bleed most like due to melena due to possible gastritis . BRBPR probably due to hemorrhoids or fissure ; EGD and colonoscopy as out pt ; f/u with Dr. Lawler Protonix bid l increased the dose continue for now for 2 more weeks # SEGURA resolved today. CT scan of head with no etiology . can't fit in MRI.; ESR nl; f/u as out pt #HIV : cont Genvoya DVT Px: SCDs, early ambulation
[2016-07-30] MEDS: SODIUM CHLORIDE NASAL SPRAY 44 ML BOTTLE NS PRN ×2 (13:49→22:14)
[2016-07-30] MEDS: ACETYLCYSTEINE 20% 200MG/ML 4 ML VIAL *FOR ORAL / INH USE ONLY NEB SCH ×2 (14:00→21:56)
[2016-07-30] MEDS: ALBUTEROL SO4 0.083% IH SOL 2.5 MG/3 ML VIAL.NEB. NEB SCH ×2 (14:00→21:57)
[2016-07-30 15:45] LABS: URINE APPEARANCE CLEAR; URINE BILIRUBIN NEGATIVE (NEGATIVE); URINE COLOR STRAW; URINE GLUCOSE (UA) NEGATIVE (NEGATIVE); URINE KETONE NEGATIVE (NEGATIVE); URINE LEUK ESTERASE NEGATIVE (NEGATIVE); URINE NITRITE NEGATIVE (NEGATIVE); URINE PROTEIN NEGATIVE (NEGATIVE); URINE UROBILINOGEN NEGATIVE E.U./dl (0.2-1.0)
[2016-07-30 15:46] LABS: URINE BLOOD 3+ (NEGATIVE)
[2016-07-30 15:50] LABS: URINE MUCUS RARE; URINE RBC 2 /hpf (0-3); URINE WBC 1 /hpf (3-5)
[2016-07-30] MEDS: MONTELUKAST NA 10 MG TABLET PO SCH (22:14)
[2016-07-30] MEDS: methylPREDNISolone NA SUCC 125 MG/2 ML VIAL IVPB SCH (22:14)
[2016-07-30] MEDS: ATORVASTATIN CA 20 MG TABLET (FP) PO SCH (22:15)
[2016-07-30] MEDS ORDERED: methylPREDNISolone NA SUCC 125 MG/2 ML VIAL IVPB SCH (23:00)
[2016-07-31] MEDS: SODIUM CHLORIDE 1,000 ML IV SCH (01:58)
[2016-07-31] MEDS: METOCLOPRAMIDE HCL 10 MG TABLET (FP) PO SCH ×3 (06:12→17:06)
[2016-07-31] MEDS: INSULIN SLIDING SCALE (NOVOLOG) 1 VIAL SQ SCH ×3 (06:13→17:07)
--- NOTE | 2016-07-31 09:44 | PN ---
Physical Exam: SUBJECTIVE: Patient seen and examined Patient resting in bed, NAD. afebrile and hemodynamically stable. On 2 L nc. States her breathing is slightly better, she is able to cough up her sputum, which seems thinner and wheezing decreased. Normal BM today with small streak of blood. denies chest pain, f/c, diarrhea. burning in genital area during defecation, urination. Peak flow 250 OBJECTIVE: Vital Signs Period Temp Pulse Resp BP Sys/So Pulse Ox Last 24 Hr 97.9 F-98.5 F 80-89 20-24 121-161/71-86 98 GENERAL: Awake, alert, and fully oriented, mildly irritated HEAD: Normal with no signs of trauma. EYES: extraocular movements intact, sclera anicteric, conjunctiva clear. No lid lag. EARS, NOSE, THROAT: Moist mucous membranes. NECK: submental and cervical lymphadenopathy, acanthosis nigricans LUNGS: improved air movement, decreased diffuse wheezes HEART: Regular rate and rhythm, normal S1 and S2 ABDOMEN: Soft, diffusely tender, not distended, normoactive bowel sounds, no guarding, no rebound, no masses. No hepatomegaly or splenomegaly. LOWER EXTREMITIES: warm, well-perfused. No calf tenderness. trace edema. NEUROLOGICAL: Normal speech. Gait not observed. PSYCHIATRIC: Cooperative. Good eye contact. Appropriate mood and affect. SKIN: Warm, dry Laboratory Results - last 24 hr 07/30/16 07/30/16 07/30/16 10:55 15:05 16:43 POC Glucometer 141 163 Urine Color Straw Urine Appearance Clear Urine pH 6.0 Ur Specific [place] 1.015 Urine Protein Negative Urine Glucose (UA) Negative Urine Ketones Negative Urine Blood 3+ H Urine Nitrite Negative Urine Bilirubin Negative Urine Urobilinogen Negative Ur Leukocyte Esterase Negative Urine RBC 2 Urine WBC 1 Ur Epithelial Cells Rare Urine Mucus Rare 07/30/16 07/31/16 22:12 06:09 POC Glucometer 187 216 Urine Color Urine Appearance Urine pH Ur Specific [place] Urine Protein Urine Glucose (UA) Urine Ketones Urine Blood Urine Nitrite Urine Bilirubin Urine Urobilinogen Ur Leukocyte Esterase Urine RBC Urine WBC Ur Epithelial Cells Urine Mucus Active Medications Generic Name Dose Route Start Last Admin Trade Name Freq PRN Reason Stop Dose Admin Acetaminophen 650 mg 07/21/16 05:33 07/30/16 22:59 Tylenol - PO 650 mg Q6H PRN Administration FEVER OR PAIN Acetylcysteine 200 mg 07/30/16 12:00 07/30/16 21:56 Mucomyst 20 Oral / Inh Use Only* NEB 200 mg BID BELLE Administration Albuterol Sulfate 1 amp 07/30/16 12:00 07/30/16 21:57 Ventolin 0.083% Nebulizer Soln - NEB 1 amp BID BELLE Administration Amlodipine Besylate 10 mg 07/31/16 10:00 Norvasc - PO DAILY BELLE Atorvastatin Calcium 20 mg 07/22/16 22:00 07/30/16 22:15 Lipitor - PO 20 mg HS BELLE Administration Benzocaine/Menthol 1 each 07/29/16 13:12 07/30/16 09:32 Cepacol Lozenge - MM 1 each Q4H PRN Administration SORE THROAT Budesonide/Formoterol Fumarate 2 puff 07/26/16 13:00 07/30/16 22:14 Symbicort 160/4.5mcg - IH 2 puff BID BELLE Administration Hydrocortisone 1 applic 07/22/16 13:00 07/30/16 09:29 Anusol 2.5% Hc Cream - TP 1 applic DAILY BELLE Administration Sodium Chloride 1,000 mls @ 50 mls/hr 07/23/16 13:15 07/31/16 01:58 Normal Saline - IV 50 mls/hr ASDIR BELLE Administration Insulin Aspart 1 vial 07/22/16 16:30 07/31/16 06:13 Novolog Vial Sliding Scale - SQ 4 units ACHS BELLE Administration Protocol Methylprednisolone Sodium Succinate 60 mg 07/30/16 23:00 07/30/16 22:14 Solu-Medrol - IVPB 60 mg Q8H-IV BELLE Administration Metoclopramide HCl 5 mg 07/22/16 11:30 07/31/16 06:12 Reglan - PO 5 mg TIDAC [facility] Administration Montelukast Sodium 10 mg 07/26/16 22:00 07/30/16 22:14 Singulair - PO 10 mg HS BELLE Administration Genvoya-Patient's 1 each 07/23/16 20:00 07/30/16 09:27 Own Medication (Non- PO 1 each Formulary) DAILY BELLE Administration Nystatin 1 applic 07/21/16 11:15 07/30/16 09:29 Nystop Powder - TP 1 applic DAILY [facility] Administration Sqdtr-7-Zqid Ethyl Esters 2 gm 07/22/16 12:45 07/30/16 22:15 Lovaza - PO 2 gm BID BELLE Administration Pantoprazole Sodium 40 mg 07/29/16 22:00 07/30/16 22:14 Protonix - PO 40 mg BID BELLE Administration Sodium Chloride 2 spray 07/30/16 12:45 07/30/16 22:14 [place] Nasal [place] - NS 2 spray BID PRN Administration NASAL CONGESTION Tiotropium [place] 1 puff 07/26/16 18:00 07/30/16 09:28 Spiriva - IH 1 puff DAILY BELLE Administration Trimethoprim/Sulfamethoxazole 1 each 07/27/16 16:45 07/30/16 09:27 Bactrim Ds - PO 1 each DAILY BELLE Administration Zinc Oxide 1 applic 07/21/16 11:13 07/21/16 13:42 Desitin Diaper Rash Oint - TP 1 applic ASDIR PRN Administration HYGEINE ASSESSMENT/PLAN: CXR: unremarkable Repeat CXR unremarkable CT head negative CT w and w/o contrast abd negative CT w and w/o contrast Chest negative ASSESSMENT/PLAN: 46 y/o F w/PMH of asthma, HIV (on genvoya), anemia, presents to ER with SOB and wheezing. Acute on chronic asthma exacerbation -symptomatic improvement -Solumedrol IV 60 q6h day 6 -albuterol q6h belle, q 4 prn / mucomyst -symbicort with spacer 160 -singulair HS -pulm consult -bipap use at night -flu swab negative -2L NC -allergy testing outpatient -pulm consult appreciated -consider ENT consult Dysuria -UA, urine culture. Upper GIB -r/o gastritis -self reported melena -occult blood + -history of steroid use w/o GI ppx -history of GERD, abd pain -H pylori test negative -Gi appreciated, possible endoscopy when respiratory status improves -PPi PO bid Chronic abd pain -likley gastritis, manage as above Rectal bleed -streak of blood in bm today -possible fissure vs hemorrhoid(palpated at 6 o'clock) -CT abd/pelvis unremarkable -hold hep -h/h stable Acute gastroenteritis -viral vs bacterial -resolved -stool studies negative DM -A1C 7.9 -BGM -sliding scale HLD/ high triglycerides -lipid panel: trig 425, cholest 217, ldl 125, hdl 63 -lipitor, fish oil Leukocytosis -likely reactive due to steroids Persistent lactic acidosis -4.4 appears to be her baseline -Likely type B (many possible causes), may be due to struggle with breathing -ID consult appreciated: unlikely infectious or due to HIV/HIV meds -does not require abx HTN -norvasc 10 DINA -Creat 0.7; resolved R sided numbness. headache -CT head unremarkable -B 12 wnl -check folate, lead, TSH HIV -genvoya -last CD4 187 -CD4 now 252 Morbid obesity -nutrition counseling PPX scd, ppi FEN No IVF lytes stable diabetic diet Dispo: [facility] [place] Visit type - Emergency Visit Emergency Visit: Yes ED Registration Date: 07/21/16 Care time: The patient presented to the Emergency Department on the above date and was hospitalized for further evaluation of their emergent condition. - New Patient This patient is new to me today: No - Critical Care Critical Care patient: No - Discharge Referral Referred to [facility] No
[2016-07-31] MEDS: amLODIPine BESYLATE 10 MG TABLET (FP) PO SCH (10:04)
[2016-07-31] MEDS: PANTOPRAZOLE 40 MG TABLET (FP) PO SCH (10:04)
[2016-07-31] MEDS: SODIUM CHLORIDE NASAL SPRAY 44 ML BOTTLE NS PRN (10:06)
[2016-07-31] MEDS: methylPREDNISolone NA SUCC 125 MG/2 ML VIAL IVPB SCH ×2 (10:06→17:06)
[2016-07-31] MEDS: OMEGA-3 ACID ETHYL ESTERS (FATTY-ACIDS) 1 GM CAPSULE (FP) PO SCH (10:07)
[2016-07-31] MEDS: HYDROCORTISONE 2.5% TOPICAL CREAM 30 GM TUBE TP SCH (10:09)
[2016-07-31] MEDS: GENVOYA PO SCH (10:10)
[2016-07-31] MEDS: NYSTATIN POWDER 100,000 UNITS/GM - 15 GM TOPICAL POWDER TP SCH (10:10)
[2016-07-31] MEDS: BUDESONIDE/FORMETEROL FUMARATE 160/4.5 mcg INHALER IH SCH (10:11)
[2016-07-31] MEDS: ALBUTEROL SO4 0.083% IH SOL 2.5 MG/3 ML VIAL.NEB. NEB SCH ×2 (10:33→21:17)
[2016-07-31] MEDS: ACETYLCYSTEINE 20% 200MG/ML 4 ML VIAL *FOR ORAL / INH USE ONLY NEB SCH ×2 (10:33→21:17)
[2016-07-31] MEDS ORDERED: INSULIN (NOVOLOG) ASPART 100 UNITS/ML 10ML VIAL ONE (11:23)
[2016-07-31] MEDS: SULFAMETHOXAZOLE/TRIMETHOPRIM 800MG/160MG D.S. TABLET PO SCH (12:53)
[2016-07-31] MEDS: TIOTROPIUM BROMIDE 18 MCG/INH (DEVICE W/ 5 CAPSULES) IH SCH (12:53)
--- NOTE | 2016-07-31 14:29 | PN ---
Progress Note, Physician History of Present Illness: PULMONARY ALERT,LESS CONGESTED ,+COUGH,+WHEEZES - Current Medication List Current Medications: Active Medications Acetaminophen (Tylenol -) 650 mg PO Q6H PRN PRN Reason: FEVER OR PAIN Last Admin: 07/30/16 22:59 Dose: 650 mg Acetylcysteine (Mucomyst 20 Oral / Inh Use Only*) 200 mg NEB BID KAREN Last Admin: 07/31/16 10:33 Dose: 200 mg Albuterol Sulfate (Ventolin 0.083% Nebulizer Soln -) 1 amp NEB BID KAREN Last Admin: 07/31/16 10:33 Dose: 1 amp Amlodipine Besylate (Norvasc -) 10 mg PO DAILY KAREN Last Admin: 07/31/16 10:04 Dose: 10 mg Atorvastatin Calcium (Lipitor -) 20 mg PO HS [facility] Last Admin: 07/30/16 22:15 Dose: 20 mg Benzocaine/Menthol (Cepacol Lozenge -) 1 each MM Q4H PRN PRN Reason: SORE THROAT Last Admin: 07/30/16 09:32 Dose: 1 each Budesonide/Formoterol Fumarate (Symbicort 160/4.5mcg -) 2 puff IH BID [facility] Last Admin: 07/31/16 10:11 Dose: 2 puff Hydrocortisone (Anusol 2.5% Hc Cream -) 1 applic TP DAILY KAREN Last Admin: 07/31/16 10:09 Dose: 1 applic Insulin Aspart (Novolog Vial Sliding Scale -) 1 vial SQ ACHS KAREN PRN Reason: Protocol Last Admin: 07/31/16 11:24 Dose: 2 units Methylprednisolone Sodium Succinate (Solu-Medrol -) 60 mg IVPB Q8H-IV KAREN Last Admin: 07/31/16 10:06 Dose: 60 mg Metoclopramide HCl (Reglan -) 5 mg PO TIDAC KAREN Last Admin: 07/31/16 10:04 Dose: 5 mg Montelukast Sodium (Singulair -) 10 mg PO HS [facility] Last Admin: 07/30/16 22:14 Dose: 10 mg Multi-Ingredient Ointment (Zinc Oxide) 1 applic TP BID KAREN Genvoya-Patient's Own Medication (Non- Formulary) 1 each PO DAILY KAREN Last Admin: 07/31/16 10:10 Dose: 1 each Nystatin (Nystop Powder -) 1 applic TP DAILY [facility] Last Admin: 07/31/16 10:10 Dose: 1 applic Zyenx-6-Pker Ethyl Esters (Lovaza -) 2 gm PO BID [facility] Last Admin: 07/31/16 10:07 Dose: 2 gm Pantoprazole Sodium (Protonix -) 40 mg PO BID [facility] Last Admin: 07/31/16 10:04 Dose: 40 mg Sodium Chloride ([place] Nasal [place] -) 2 spray NS BID PRN PRN Reason: NASAL CONGESTION Last Admin: 07/31/16 10:06 Dose: 2 spray Tiotropium [place] (Spiriva -) 1 puff IH DAILY [facility] Last Admin: 07/31/16 12:53 Dose: 1 puff Trimethoprim/Sulfamethoxazole (Bactrim Ds -) 1 each PO DAILY [facility] Last Admin: 07/31/16 12:53 Dose: 1 each Zinc Oxide (Desitin Diaper Rash Oint -) 1 applic TP ASDIR PRN PRN Reason: HYGEINE Last Admin: 07/21/16 13:42 Dose: 1 applic - Objective Vital Signs: Vital Signs Temperature 97.9 F 07/31/16 10:00 Pulse Rate 89 07/31/16 10:00 Respiratory Rate 20 07/31/16 10:00 Blood Pressure 150/99 07/31/16 10:00 O2 Sat by Pulse Oximetry (%) 95 07/31/16 10:00 Constitutional: Yes: Calm, Obese Eyes: Yes: WNL HENT: Yes: WNL Neck: Yes: WNL Cardiovascular: Yes: Regular Rate and Rhythm, S1, S2 Respiratory: Yes: Wheezes (PRATIBHA WHEEZES) Gastrointestinal: Yes: Normal Bowel Sounds, Soft Extremities: Yes: WNL Edema: No Labs: Assessment/Plan IMP CHRONIC PERSISTENT ASTHMA WITH ACUTE EXACERBATION OSAS MORBID OBESITY HEMOPTYSIS ELEVATED LACTATE LEVEL HIV PLAN IV STEROIDS SAME DOSE INHALED BRONCHODILATORS,MUCOMYST NASAL O2 IVF PFTS OUTPATIENT MONITOR PEAK FLOW BIPAP AT NIGHT DR [place]
[2016-07-31] MEDS ORDERED: PT OWN MED DRAWER 7, Y5N ONE (14:46)
--- NOTE | 2016-07-31 17:28 | PN ---
Teaching Attending Note Name of Resident: Lida Pretty ATTENDING PHYSICIAN STATEMENT I saw and evaluated the patient. I reviewed the resident's note and discussed the case with the resident. I agree with the resident's findings and plan as documented. Patient continues to wheeze. cough is better, stated that Mucomyst is helping her.Less cough. Vital Signs Temperature 97.9 F 07/31/16 14:12 Pulse Rate 84 07/31/16 14:12 Respiratory Rate 20 07/31/16 14:12 Blood Pressure 145/74 07/31/16 14:12 O2 Sat by Pulse Oximetry (%) 95 07/31/16 10:00 CBCD WBC 16.3 x10E3/uL (3.4-10.8) H 07/26/16 12:30 RBC 4.78 M/mm3 (3.60-5.2) 07/25/16 10:30 Hgb 11.4 GM/dL (10.7-15.3) 07/25/16 10:30 Hct 36.7 % (32.4-45.2) 07/25/16 10:30 MCV 76.8 fl (80-96) L 07/25/16 10:30 MCHC 31.0 g/dl (32.0-36.0) L 07/25/16 10:30 RDW 17.9 % (11.6-15.6) H 07/25/16 10:30 Plt Count 142 K/MM3 (134-434) 07/25/16 10:30 MPV 7.6 fl (7.5-11.1) 07/25/16 10:30 CMP Sodium 140 mmol/L (136-145) 07/28/16 05:40 Potassium 4.2 mmol/L (3.5-5.1) 07/28/16 05:40 Chloride 103 mmol/L (98-107) 07/28/16 05:40 Carbon Dioxide 24 mmol/L (21-32) 07/28/16 05:40 Anion Gap 13 (8-16) 07/28/16 05:40 BUN 14 mg/dL (7-18) 07/28/16 05:40 Creatinine 0.7 mg/dL (0.55-1.02) 07/28/16 05:40 Creat Clearance w eGFR > 60 (>60) 07/21/16 06:30 Random Glucose 195 mg/dL (74-106) H D 07/28/16 05:40 Calcium 8.4 mg/dL (8.5-10.1) L 07/28/16 05:40 Total Bilirubin 0.3 mg/dL (0.2-1.0) 07/21/16 06:30 AST 6 U/L (15-37) L D 07/21/16 06:30 ALT 36 U/L (12-78) 07/21/16 06:30 Alkaline Phosphatase 50 U/L (45-117) 07/21/16 06:30 Total Protein 6.3 g/dl (6.4-8.2) L 07/21/16 06:30 Albumin 3.4 g/dl (3.4-5.0) 07/21/16 06:30 CARDIAC ENZYMES Creatine Kinase 75 IU/L (26-192) 07/23/16 06:15 Troponin I < 0.02 ng/ml (0.00-0.05) 07/21/16 01:45 Current Medications Generic Name Dose Route Start Last Admin Trade Name Freq PRN Reason Stop Dose Admin Acetaminophen 650 mg 07/21/16 05:33 07/30/16 22:59 Tylenol - PO 650 mg Q6H PRN Administration FEVER OR PAIN Acetylcysteine 200 mg 07/30/16 12:00 07/31/16 10:33 Mucomyst 20 Oral / Inh Use Only* NEB 200 mg BID KAREN Administration Albuterol Sulfate 1 amp 07/30/16 12:00 07/31/16 10:33 Ventolin 0.083% Nebulizer Soln - NEB 1 amp BID KAREN Administration Amlodipine Besylate 10 mg 07/31/16 10:00 07/31/16 10:04 Norvasc - PO 10 mg DAILY KAREN Administration Atorvastatin Calcium 20 mg 07/22/16 22:00 07/30/16 22:15 Lipitor - PO 20 mg HS KAREN Administration Benzocaine/Menthol 1 each 07/29/16 13:12 07/30/16 09:32 Cepacol Lozenge - MM 1 each Q4H PRN Administration SORE THROAT Budesonide/Formoterol Fumarate 2 puff 07/26/16 13:00 07/31/16 10:11 Symbicort 160/4.5mcg - IH 2 puff BID KAREN Administration Hydrocortisone 1 applic 07/22/16 13:00 07/31/16 10:09 Anusol 2.5% Hc Cream - TP 1 applic DAILY KAREN Administration Insulin Aspart 1 vial 07/22/16 16:30 07/31/16 17:07 Novolog Vial Sliding Scale - SQ 4 units ACHS KAREN Administration Protocol Methylprednisolone Sodium Succinate 60 mg 07/30/16 23:00 07/31/16 17:06 Solu-Medrol - IVPB 60 mg Q8H-IV KAREN Administration Metoclopramide HCl 5 mg 07/22/16 11:30 07/31/16 17:06 Reglan - PO 5 mg TIDAC KAREN Administration Montelukast Sodium 10 mg 07/26/16 22:00 07/30/16 22:14 Singulair - PO 10 mg HS KAREN Administration Multi-Ingredient Ointment 1 applic 07/31/16 22:00 Zinc Oxide TP BID KAREN Genvoya-Patient's 1 each 07/23/16 20:00 07/31/16 10:10 Own Medication (Non- PO 1 each Formulary) DAILY KAREN Administration Nystatin 1 applic 07/21/16 11:15 07/31/16 10:10 Nystop Powder - TP 1 applic DAILY KAREN Administration Qxnwi-3-Lkyd Ethyl Esters 2 gm 07/22/16 12:45 07/31/16 10:07 Lovaza - PO 2 gm BID KAREN Administration Pantoprazole Sodium 40 mg 07/29/16 22:00 07/31/16 10:04 Protonix - PO 40 mg BID KAREN Administration Sodium Chloride 2 spray 07/30/16 12:45 07/31/16 10:06 [place] Nasal [place] - NS 2 spray BID PRN Administration NASAL CONGESTION Tiotropium [place] 1 puff 07/26/16 18:00 07/31/16 12:53 Spiriva - IH 1 puff DAILY KAREN Administration Trimethoprim/Sulfamethoxazole 1 each 07/27/16 16:45 07/31/16 12:53 Bactrim Ds - PO 1 each DAILY KAREN Administration Zinc Oxide 1 applic 07/21/16 11:13 07/21/16 13:42 Desitin Diaper Rash Oint - TP 1 applic ASDIR PRN Administration HYGEINE Home Medications Medication Instructions Recorded Elviteg/Crystal/Emtric/Tenofo Ala 1 each PO DAILY 02/15/16 [Genvoya Tablet] Methylprednisolone [Medrol Dose 4 mg PO ASDIR #21 tablet 07/17/16 Rodriguez] Albuterol 0.083% Nebulizer Rach 07/26/16 [Ventolin 0.083% Nebulizer Soln -] Budesonide/Formeterol Fumarate 2 inh PO BID 07/26/16 [SYMBICORT 160/4.5mcg -] ROS/PE as per resident's note Chest: Positive for wheezing/rhonchi . no rales ASSESSMENT AND PLAN: 46 y/o lady with h/o Asthma, HIV, anemia who presented with SOB and wheezing , Abd pain N/V and rectal bleed . She was found to have Asthma exacerbation # Acute Asthma exacerbation on steroid 60mg IV q8h now will try to taper it down further , peak flow is still 260 today , Pulmonary continues seeing the patient, cont ALbuterol Nebs QID , and PRN ; Added Singulair, Symbicort, daily Peak flow . Satutating 98% now, Bipap as needed , On Bactrim DS daily as per ID continue # New onset DM :On Steroids will monitor closely; SSI now ,on oral medications at home. # Acute Leukocytosis trending up due to Steroids will repeat labs in am # GI bleed , BRBPR probably due to hemorrhoids or fissure ; EGD and colono as out pt ; f/u with Dr. Lawler , Protonix increased to bid continue . # SEGURA resolved today. CT scan of head with no etiology . can't fit in MRI.; ESR nl; f/u as out pt # Morbid Obesity: weight loss is recommeded #HIV : cont Genvoya DVT Px: SCDs, early ambulation
--- NOTE | 2016-07-31 21:40 | PN ---
Teaching Attending Note Name of Resident: Lida Pretty ATTENDING PHYSICIAN STATEMENT I saw and evaluated the patient. I reviewed the resident's note and discussed the case with the resident. I agree with the resident's findings and plan as documented. Vital Signs Temperature 97.4 F L 07/31/16 18:59 Pulse Rate 85 07/31/16 18:59 Respiratory Rate 20 07/31/16 18:59 Blood Pressure 134/71 07/31/16 18:59 O2 Sat by Pulse Oximetry (%) 95 07/31/16 10:00 CBCD WBC 16.3 x10E3/uL (3.4-10.8) H 07/26/16 12:30 RBC 4.78 M/mm3 (3.60-5.2) 07/25/16 10:30 Hgb 11.4 GM/dL (10.7-15.3) 07/25/16 10:30 Hct 36.7 % (32.4-45.2) 07/25/16 10:30 MCV 76.8 fl (80-96) L 07/25/16 10:30 MCHC 31.0 g/dl (32.0-36.0) L 07/25/16 10:30 RDW 17.9 % (11.6-15.6) H 07/25/16 10:30 Plt Count 142 K/MM3 (134-434) 07/25/16 10:30 MPV 7.6 fl (7.5-11.1) 07/25/16 10:30 CMP Sodium 140 mmol/L (136-145) 07/28/16 05:40 Potassium 4.2 mmol/L (3.5-5.1) 07/28/16 05:40 Chloride 103 mmol/L (98-107) 07/28/16 05:40 Carbon Dioxide 24 mmol/L (21-32) 07/28/16 05:40 Anion Gap 13 (8-16) 07/28/16 05:40 BUN 14 mg/dL (7-18) 07/28/16 05:40 Creatinine 0.7 mg/dL (0.55-1.02) 07/28/16 05:40 Creat Clearance w eGFR > 60 (>60) 07/21/16 06:30 Random Glucose 195 mg/dL (74-106) H D 07/28/16 05:40 Calcium 8.4 mg/dL (8.5-10.1) L 07/28/16 05:40 Total Bilirubin 0.3 mg/dL (0.2-1.0) 07/21/16 06:30 AST 6 U/L (15-37) L D 07/21/16 06:30 ALT 36 U/L (12-78) 07/21/16 06:30 Alkaline Phosphatase 50 U/L (45-117) 07/21/16 06:30 Total Protein 6.3 g/dl (6.4-8.2) L 07/21/16 06:30 Albumin 3.4 g/dl (3.4-5.0) 07/21/16 06:30 CARDIAC ENZYMES Creatine Kinase 75 IU/L (26-192) 07/23/16 06:15 Troponin I < 0.02 ng/ml (0.00-0.05) 07/21/16 01:45 Current Medications Generic Name Dose Route Start Last Admin Trade Name Freq PRN Reason Stop Dose Admin Acetaminophen 650 mg 07/21/16 05:33 07/30/16 22:59 Tylenol - PO 650 mg Q6H PRN Administration FEVER OR PAIN Acetylcysteine 200 mg 07/30/16 12:00 07/31/16 21:17 Mucomyst 20 Oral / Inh Use Only* NEB 200 mg BID KAREN Administration Albuterol Sulfate 1 amp 07/30/16 12:00 07/31/16 21:17 Ventolin 0.083% Nebulizer Soln - NEB 1 amp BID KAREN Administration Amlodipine Besylate 10 mg 07/31/16 10:00 07/31/16 10:04 Norvasc - PO 10 mg DAILY KAREN Administration Atorvastatin Calcium 20 mg 07/22/16 22:00 07/30/16 22:15 Lipitor - PO 20 mg HS KAREN Administration Benzocaine/Menthol 1 each 07/29/16 13:12 07/30/16 09:32 Cepacol Lozenge - MM 1 each Q4H PRN Administration SORE THROAT Budesonide/Formoterol Fumarate 2 puff 07/26/16 13:00 07/31/16 10:11 Symbicort 160/4.5mcg - IH 2 puff BID KAREN Administration Hydrocortisone 1 applic 07/22/16 13:00 07/31/16 10:09 Anusol 2.5% Hc Cream - TP 1 applic DAILY KAREN Administration Insulin Aspart 1 vial 07/22/16 16:30 07/31/16 17:07 Novolog Vial Sliding Scale - SQ 4 units ACHS KAREN Administration Protocol Methylprednisolone Sodium Succinate 60 mg 07/30/16 23:00 07/31/16 17:06 Solu-Medrol - IVPB 60 mg Q8H-IV KAREN Administration Metoclopramide HCl 5 mg 07/22/16 11:30 07/31/16 17:06 Reglan - PO 5 mg TIDAC KAREN Administration Montelukast Sodium 10 mg 07/26/16 22:00 07/30/16 22:14 Singulair - PO 10 mg HS KAREN Administration Multi-Ingredient Ointment 1 applic 07/31/16 22:00 Zinc Oxide TP BID KAREN Genvoya-Patient's 1 each 07/23/16 20:00 07/31/16 10:10 Own Medication (Non- PO 1 each Formulary) DAILY KAREN Administration Nystatin 1 applic 07/21/16 11:15 07/31/16 10:10 Nystop Powder - TP 1 applic DAILY KAREN Administration Dsglo-8-Emog Ethyl Esters 2 gm 07/22/16 12:45 07/31/16 10:07 Lovaza - PO 2 gm BID KAREN Administration Pantoprazole Sodium 40 mg 07/29/16 22:00 07/31/16 10:04 Protonix - PO 40 mg BID KAREN Administration Sodium Chloride 2 spray 07/30/16 12:45 07/31/16 10:06 [place] Nasal [place] - NS 2 spray BID PRN Administration NASAL CONGESTION Tiotropium [place] 1 puff 07/26/16 18:00 07/31/16 12:53 Spiriva - IH 1 puff DAILY KAREN Administration Trimethoprim/Sulfamethoxazole 1 each 07/27/16 16:45 07/31/16 12:53 Bactrim Ds - PO 1 each DAILY KAREN Administration Zinc Oxide 1 applic 07/21/16 11:13 07/21/16 13:42 Desitin Diaper Rash Oint - TP 1 applic ASDIR PRN Administration HYGEINE Home Medications Medication Instructions Recorded Elviteg/Crystal/Emtric/Tenofo Ala 1 each PO DAILY 02/15/16 [Genvoya Tablet] Methylprednisolone [Medrol Dose 4 mg PO ASDIR #21 tablet 07/17/16 Rodriguez] Albuterol 0.083% Nebulizer Rach 07/26/16 [Ventolin 0.083% Nebulizer Soln -] Budesonide/Formeterol Fumarate 2 inh PO BID 07/26/16 [SYMBICORT 160/4.5mcg -] ASSESSMENT AND PLAN: 46 y/o lady with h/o Asthma, HIV, anemia who presented with SOB and wheezing , Abd pain N/V and rectal bleed . She was found to have Asthma exacerbation # Acute Asthma exacerbation. patient is feeling better , peak flow is improving . Continue Solu MEdrol 60mg IV q8h will continue , pulmonary on the case. cont ALbuterol Nebs QID , and PRN ; Added Singulair, Symbicort, daily Peak flow . continue Oxygen for now, Bipap prn. On Bactrim DS daily as per ID # New onset DM:On Steroids will monitor closely; SSI now ,on oral medications at home. # Acute Leukocytosis trending up due to Steroids # GI bleed most like due to melena due to possible gastritis . BRBPR probably due to hemorrhoids or fissure ; EGD and colono as out pt ; f/u with Dr. Helton Protonix bid will increase the dose. # SEGURA resolved today. CT scan of head with no etiology . can't fit in MRI.; ESR nl; f/u as out pt #HIV : cont Genvoya DVT Px: SCDs, early ambulation
[2016-08-01] MEDS ORDERED: PT OWN MED DRAWER 7, Y5N ONE ×2 (00:10→22:22)
[2016-08-01] MEDS: ATORVASTATIN CA 20 MG TABLET (FP) PO SCH ×2 (00:11→22:32)
[2016-08-01] MEDS: PANTOPRAZOLE 40 MG TABLET (FP) PO SCH ×3 (00:11→22:32)
[2016-08-01] MEDS: MONTELUKAST NA 10 MG TABLET PO SCH ×2 (00:11→22:32)
[2016-08-01] MEDS: ZINC OXIDE 20% TOPICAL OINTMENT 30 GM TUBE TP SCH ×3 (00:12→22:40)
[2016-08-01] MEDS: OMEGA-3 ACID ETHYL ESTERS (FATTY-ACIDS) 1 GM CAPSULE (FP) PO SCH ×3 (00:12→22:40)
[2016-08-01] MEDS: BUDESONIDE/FORMETEROL FUMARATE 160/4.5 mcg INHALER IH SCH ×3 (00:12→22:33)
[2016-08-01] MEDS: INSULIN SLIDING SCALE (NOVOLOG) 1 VIAL SQ SCH ×5 (00:18→22:41)
[2016-08-01] MEDS: methylPREDNISolone NA SUCC 125 MG/2 ML VIAL IVPB SCH ×2 (03:21→10:55)
[2016-08-01] MEDS: METOCLOPRAMIDE HCL 10 MG TABLET (FP) PO SCH ×3 (06:08→16:42)
--- NOTE | 2016-08-01 08:54 | PN ---
Teaching Attending Note Name of Resident: Lida Pretty ATTENDING PHYSICIAN STATEMENT I saw and evaluated the patient. I reviewed the resident's note and discussed the case with the resident. I agree with the resident's findings and plan as documented. Continues to wheeze, gets winded on exertion. No chest pain. Vital Signs Temperature 97.8 F 08/01/16 06:00 Pulse Rate 69 08/01/16 06:00 Respiratory Rate 22 08/01/16 06:00 Blood Pressure 125/82 08/01/16 06:00 O2 Sat by Pulse Oximetry (%) 95 07/31/16 21:00 CBCD WBC 16.3 x10E3/uL (3.4-10.8) H 07/26/16 12:30 RBC 4.78 M/mm3 (3.60-5.2) 07/25/16 10:30 Hgb 11.4 GM/dL (10.7-15.3) 07/25/16 10:30 Hct 36.7 % (32.4-45.2) 07/25/16 10:30 MCV 76.8 fl (80-96) L 07/25/16 10:30 MCHC 31.0 g/dl (32.0-36.0) L 07/25/16 10:30 RDW 17.9 % (11.6-15.6) H 07/25/16 10:30 Plt Count 142 K/MM3 (134-434) 07/25/16 10:30 MPV 7.6 fl (7.5-11.1) 07/25/16 10:30 CMP Sodium 140 mmol/L (136-145) 07/28/16 05:40 Potassium 4.2 mmol/L (3.5-5.1) 07/28/16 05:40 Chloride 103 mmol/L (98-107) 07/28/16 05:40 Carbon Dioxide 24 mmol/L (21-32) 07/28/16 05:40 Anion Gap 13 (8-16) 07/28/16 05:40 BUN 14 mg/dL (7-18) 07/28/16 05:40 Creatinine 0.7 mg/dL (0.55-1.02) 07/28/16 05:40 Creat Clearance w eGFR > 60 (>60) 07/21/16 06:30 Random Glucose 195 mg/dL (74-106) H D 07/28/16 05:40 Calcium 8.4 mg/dL (8.5-10.1) L 07/28/16 05:40 Total Bilirubin 0.3 mg/dL (0.2-1.0) 07/21/16 06:30 AST 6 U/L (15-37) L D 07/21/16 06:30 ALT 36 U/L (12-78) 07/21/16 06:30 Alkaline Phosphatase 50 U/L (45-117) 07/21/16 06:30 Total Protein 6.3 g/dl (6.4-8.2) L 07/21/16 06:30 Albumin 3.4 g/dl (3.4-5.0) 07/21/16 06:30 CARDIAC ENZYMES Creatine Kinase 75 IU/L (26-192) 07/23/16 06:15 Troponin I < 0.02 ng/ml (0.00-0.05) 07/21/16 01:45 Current Medications Generic Name Dose Route Start Last Admin Trade Name Freq PRN Reason Stop Dose Admin Acetaminophen 650 mg 07/21/16 05:33 07/30/16 22:59 Tylenol - PO 650 mg Q6H PRN Administration FEVER OR PAIN Acetylcysteine 200 mg 07/30/16 12:00 07/31/16 21:17 Mucomyst 20 Oral / Inh Use Only* NEB 200 mg BID KAREN Administration Albuterol Sulfate 1 amp 07/30/16 12:00 07/31/16 21:17 Ventolin 0.083% Nebulizer Soln - NEB 1 amp BID KAREN Administration Amlodipine Besylate 10 mg 07/31/16 10:00 07/31/16 10:04 Norvasc - PO 10 mg DAILY KAREN Administration Atorvastatin Calcium 20 mg 07/22/16 22:00 08/01/16 00:11 Lipitor - PO 20 mg HS KAREN Administration Benzocaine/Menthol 1 each 07/29/16 13:12 07/30/16 09:32 Cepacol Lozenge - MM 1 each Q4H PRN Administration SORE THROAT Budesonide/Formoterol Fumarate 2 puff 07/26/16 13:00 08/01/16 00:12 Symbicort 160/4.5mcg - IH 2 puff BID KAREN Administration Hydrocortisone 1 applic 07/22/16 13:00 07/31/16 10:09 Anusol 2.5% Hc Cream - TP 1 applic DAILY KAREN Administration Insulin Aspart 1 vial 07/22/16 16:30 08/01/16 06:10 Novolog Vial Sliding Scale - SQ 2 units ACHS KAREN Administration Protocol Methylprednisolone Sodium Succinate 60 mg 07/30/16 23:00 08/01/16 03:21 Solu-Medrol - IVPB 60 mg Q8H-IV KAREN Administration Metoclopramide HCl 5 mg 07/22/16 11:30 08/01/16 06:08 Reglan - PO 5 mg TIDAC KAREN Administration Montelukast Sodium 10 mg 07/26/16 22:00 08/01/16 00:11 Singulair - PO 10 mg HS KAREN Administration Multi-Ingredient Ointment 1 applic 07/31/16 22:00 08/01/16 00:12 Zinc Oxide TP Not Given BID KAREN Genvoya-Patient's 1 each 07/23/16 20:00 07/31/16 10:10 Own Medication (Non- PO 1 each Formulary) DAILY KAREN Administration Nystatin 1 applic 07/21/16 11:15 07/31/16 10:10 Nystop Powder - TP 1 applic DAILY KAREN Administration Yudbf-6-Sjxz Ethyl Esters 2 gm 07/22/16 12:45 08/01/16 00:12 Lovaza - PO 2 gm BID KAREN Administration Pantoprazole Sodium 40 mg 07/29/16 22:00 08/01/16 00:11 Protonix - PO 40 mg BID KAREN Administration Sodium Chloride 2 spray 07/30/16 12:45 07/31/16 10:06 [place] Nasal [place] - NS 2 spray BID PRN Administration NASAL CONGESTION Tiotropium [place] 1 puff 07/26/16 18:00 07/31/16 12:53 Spiriva - IH 1 puff DAILY KAREN Administration Trimethoprim/Sulfamethoxazole 1 each 07/27/16 16:45 07/31/16 12:53 Bactrim Ds - PO 1 each DAILY KAREN Administration Zinc Oxide 1 applic 07/21/16 11:13 07/21/16 13:42 Desitin Diaper Rash Oint - TP 1 applic ASDIR PRN Administration HYGEINE Home Medications Medication Instructions Recorded Elviteg/Crystal/Emtric/Tenofo Ala 1 each PO DAILY 10/18/16 [Genvoya Tablet] Methylprednisolone [Medrol Dose 4 mg PO ASDIR #21 tablet 07/17/16 Rodriguez] Albuterol 0.083% Nebulizer Rach 07/26/16 [Ventolin 0.083% Nebulizer Soln -] Budesonide/Formeterol Fumarate 2 inh PO BID 07/26/16 [SYMBICORT 160/4.5mcg -] ROS/PE as per resident's note Chest: Positive for wheezing/rhonchi . no rales ASSESSMENT AND PLAN: 46 y/o lady with h/o Asthma, HIV, anemia who presented with SOB and wheezing , Abd pain N/V and rectal bleed . She was found to have Asthma exacerbation # Acute Asthma exacerbation on steroid 60mg IV q8h now will try to taper it down further , peak flow is still 260 today , Pulmonary continues seeing the patient, cont ALbuterol Nebs QID , and PRN ; continue Singulair, Symbicort, daily Peak flow . Saturating 98% now, Bipap as needed , On Bactrim DS daily as per ID continue. added incentive spirometer, physiotherapy # New onset DM :On Steroids will monitor closely; SSI now ,on oral medications at home. # Acute Leukocytosis trending up due to Steroids will repeat labs in am # GI bleed , BRBPR probably due to hemorrhoids or fissure ; EGD and colono as out pt ; f/u with Dr. Lawler , Protonix increased to bid continue . # SEGURA resolved today. CT scan of head with no etiology . can't fit in MRI.; ESR nl; f/u as out pt # Morbid Obesity: weight loss is recommeded #HIV : cont Genvoya DVT Px: SCDs, early ambulation
[2016-08-01] MEDS: ACETYLCYSTEINE 20% 200MG/ML 4 ML VIAL *FOR ORAL / INH USE ONLY NEB SCH ×2 (10:00→22:25)
[2016-08-01] MEDS: ALBUTEROL SO4 0.083% IH SOL 2.5 MG/3 ML VIAL.NEB. NEB SCH ×2 (10:00→22:25)
[2016-08-01 10:07] LABS: BASOPHIL 0.2 % (0-2.0); MCH 24.5 pg (25.7-33.7); MCHC 31.5 g/dl (32.0-36.0); MEAN CELL VOLUME 77.8 fl (80-96); MEAN PLT VOLUME 7.4 fl (7.5-11.1); NEUTROPHILS 86.5 % (42.8-82.8); PLATELET COUNT 248 K/MM3 (134-434); RDW 20.7 % (11.6-15.6); WHITE BLOOD COUNT 8.2 K/mm3 (4.0-10.0)
[2016-08-01 10:33] LABS: CALCIUM 8.4 mg/dL (8.5-10.1)
[2016-08-01 10:37] LABS: CREATININE 0.8 mg/dL (0.55-1.02)
[2016-08-01] MEDS: amLODIPine BESYLATE 10 MG TABLET (FP) PO SCH (10:52)
[2016-08-01] MEDS: SULFAMETHOXAZOLE/TRIMETHOPRIM 800MG/160MG D.S. TABLET PO SCH (10:52)
[2016-08-01] MEDS: HYDROCORTISONE 2.5% TOPICAL CREAM 30 GM TUBE TP SCH (10:53)
[2016-08-01] MEDS: NYSTATIN POWDER 100,000 UNITS/GM - 15 GM TOPICAL POWDER TP SCH (10:53)
[2016-08-01] MEDS: GENVOYA PO SCH (10:54)
[2016-08-01] MEDS: TIOTROPIUM BROMIDE 18 MCG/INH (DEVICE W/ 5 CAPSULES) IH SCH (10:55)
[2016-08-01] MEDS: BENZOCAINE/MENTH/CETYLPYRD CL 1 EACH LOZENGE MM PRN (10:57)
[2016-08-01 11:51] LABS: ANISOCYTOSIS 1+; MICROCYTOSIS 1+; POLYCHROMASIA 1+
[2016-08-01 11:53] LABS: TEAR DROP CELLS 1+
--- NOTE | 2016-08-01 12:33 | PN ---
Physical Exam: SUBJECTIVE: Patient seen and examined Patient resting in bed, NAD. afebrile and hemodynamically stable. On 2 L nc. States her breathing is better, she is able to cough up her sputum. tried to walk in hallway w/o O@, became extremely winded, experiencing musculoskeletal chest and back pain when struggling to breathe. Normal BM today with small streak of blood. denies f/c, diarrhea. burning in genital area during defecation , urination. Peak flow 200 OBJECTIVE: Vital Signs Period Temp Pulse Resp BP Sys/So Pulse Ox Last 24 Hr 97.4 F-97.9 F 69-85 20-22 125-145/71-82 95 GENERAL: Awake, alert, and fully oriented, mildly irritated HEAD: Normal with no signs of trauma. EYES: extraocular movements intact, sclera anicteric, conjunctiva clear. No lid lag. EARS, NOSE, THROAT: Moist mucous membranes. NECK: submental and cervical lymphadenopathy, acanthosis nigricans LUNGS: improved air movement, decreased diffuse wheezes HEART: Regular rate and rhythm, normal S1 and S2 ABDOMEN: Soft, diffusely tender, not distended, normoactive bowel sounds, no guarding, no rebound, no masses. No hepatomegaly or splenomegaly. LOWER EXTREMITIES: warm, well-perfused. No calf tenderness. trace edema. NEUROLOGICAL: Normal speech. Gait not observed. PSYCHIATRIC: Cooperative. Good eye contact. Appropriate mood and affect. SKIN: Warm, dry Laboratory Results - last 24 hr 07/31/16 08/01/16 08/01/16 16:51 00:16 06:09 WBC RBC Hgb Hct MCV MCHC RDW Plt Count MPV Neutrophils % Lymphocytes % Monocytes % Eosinophils % Basophils % Polychromasia Anisocytosis Microcytosis Macrocytosis Tear Drop Cells Morphology Comment Sodium Potassium Chloride Carbon Dioxide Anion Gap BUN Creatinine POC Glucometer 223 213 186 Random Glucose Calcium 08/01/16 08/01/16 08/01/16 09:50 09:50 11:26 WBC 8.2 D RBC 5.02 Hgb 12.3 Hct 39.1 MCV 77.8 L MCHC 31.5 L RDW 20.7 H D Plt Count 248 D MPV 7.4 L Neutrophils % 86.5 H Lymphocytes % 5.4 L D Monocytes % 7.9 D Eosinophils % 0.0 Basophils % 0.2 Polychromasia 1+ Anisocytosis 1+ Microcytosis 1+ Macrocytosis 1+ Tear Drop Cells 1+ Morphology Comment Slide scanned Sodium 139 Potassium 4.4 Chloride 100 Carbon Dioxide 23 Anion Gap 16 BUN 16 Creatinine 0.8 POC Glucometer 166 Random Glucose 195 H Calcium 8.4 L Active Medications Generic Name Dose Route Start Last Admin Trade Name Freq PRN Reason Stop Dose Admin Acetaminophen 650 mg 07/21/16 05:33 07/30/16 22:59 Tylenol - PO 650 mg Q6H PRN Administration FEVER OR PAIN Acetylcysteine 200 mg 07/30/16 12:00 08/01/16 10:00 Mucomyst 20 Oral / Inh Use Only* NEB 200 mg BID BELLE Administration Albuterol Sulfate 1 amp 07/30/16 12:00 08/01/16 10:00 Ventolin 0.083% Nebulizer Soln - NEB 1 amp BID BELLE Administration Amlodipine Besylate 10 mg 07/31/16 10:00 08/01/16 10:52 Norvasc - PO 10 mg DAILY BELLE Administration Atorvastatin Calcium 20 mg 07/22/16 22:00 08/01/16 00:11 Lipitor - PO 20 mg HS BELLE Administration Benzocaine/Menthol 1 each 07/29/16 13:12 08/01/16 10:57 Cepacol Lozenge - MM 1 each Q4H PRN Administration SORE THROAT Budesonide/Formoterol Fumarate 2 puff 07/26/16 13:00 08/01/16 10:56 Symbicort 160/4.5mcg - IH 2 puff BID BELLE Administration Hydrocortisone 1 applic 07/22/16 13:00 08/01/16 10:53 Anusol 2.5% Hc Cream - TP 1 applic DAILY BELLE Administration Insulin Aspart 1 vial 07/22/16 16:30 08/01/16 11:38 Novolog Vial Sliding Scale - SQ 2 units ACHS BELLE Administration Protocol Methylprednisolone Sodium Succinate 40 mg 08/01/16 18:00 Solu-Medrol - IVPB Q8H-IV BELLE Metoclopramide HCl 5 mg 07/22/16 11:30 08/01/16 10:53 Reglan - PO 5 mg TIDAC BELLE Administration Montelukast Sodium 10 mg 07/26/16 22:00 08/01/16 00:11 Singulair - PO 10 mg HS BELLE Administration Multi-Ingredient Ointment 1 applic 07/31/16 22:00 08/01/16 11:01 Zinc Oxide TP 1 applic BID BELLE Administration Genvoya-Patient's 1 each 07/23/16 20:00 08/01/16 10:54 Own Medication (Non- PO 1 each Formulary) DAILY BELLE Administration Nystatin 1 applic 07/21/16 11:15 08/01/16 10:53 Nystop Powder - TP 1 applic DAILY BELLE Administration Sxvkm-5-Yhjv Ethyl Esters 2 gm 07/22/16 12:45 08/01/16 10:54 Lovaza - PO 2 gm BID BELLE Administration Pantoprazole Sodium 40 mg 07/29/16 22:00 08/01/16 10:52 Protonix - PO 40 mg BID BELLE Administration Sodium Chloride 2 spray 07/30/16 12:45 07/31/16 10:06 [place] Nasal [place] - NS 2 spray BID PRN Administration NASAL CONGESTION Tiotropium [place] 1 puff 07/26/16 18:00 08/01/16 10:55 Spiriva - IH 1 puff DAILY BELLE Administration Trimethoprim/Sulfamethoxazole 1 each 07/27/16 16:45 08/01/16 10:52 Bactrim Ds - PO 1 each DAILY BELLE Administration Zinc Oxide 1 applic 07/21/16 11:13 07/21/16 13:42 Desitin Diaper Rash Oint - TP 1 applic ASDIR PRN Administration HYGEINE ASSESSMENT/PLAN: CXR: unremarkable Repeat CXR unremarkable CT head negative CT w and w/o contrast abd negative CT w and w/o contrast Chest negative ASSESSMENT/PLAN: 46 y/o F w/PMH of asthma, HIV (on genvoya), anemia, presents to ER with SOB and wheezing. Acute on chronic asthma exacerbation -symptomatic improvement -Solumedrol IV 40 q8h -albuterol q6h belle, q 4 prn / mucomyst -symbicort with spacer 160 -singulair HS -pulm consult -bipap use at night -flu swab negative -2L NC -allergy testing outpatient -pulm consult appreciated -incentive spirometer -respiratory PT Upper GIB -r/o gastritis -self reported melena -occult blood + -history of steroid use w/o GI ppx -history of GERD, abd pain -H pylori test negative -Gi appreciated, possible endoscopy when respiratory status improves -PPi PO bid Chronic abd pain -likley gastritis, manage as above Rectal bleed -streak of blood in bm today -possible fissure vs hemorrhoid(palpated at 6 o'clock) -CT abd/pelvis unremarkable -hold hep -h/h stable Acute gastroenteritis -viral vs bacterial -resolved -stool studies negative DM -A1C 7.9 -BGM -sliding scale HLD/ high triglycerides -lipid panel: trig 425, cholest 217, ldl 125, hdl 63 -lipitor, fish oil Leukocytosis -likely reactive due to steroids Persistent lactic acidosis -4.4 appears to be her baseline -Likely type B (many possible causes), may be due to struggle with breathing -ID consult appreciated: unlikely infectious or due to HIV/HIV meds -does not require abx HTN -norvasc 10 DINA -Creat 0.7; resolved R sided numbness. headache -CT head unremarkable -B 12 wnl -check folate, lead, TSH HIV -genvoya -last CD4 187 -CD4 now 252 Morbid obesity -nutrition counseling PPX scd, ppi FEN No IVF lytes stable diabetic diet Dispo: [facility] [place] Visit type - Emergency Visit Emergency Visit: Yes ED Registration Date: 07/21/16 Care time: The patient presented to the Emergency Department on the above date and was hospitalized for further evaluation of their emergent condition. - New Patient This patient is new to me today: No - Critical Care Critical Care patient: No - Discharge Referral Referred to [facility] No
--- NOTE | 2016-08-01 13:08 | PN ---
Progress Note (short form) - Note Progress Note: OOB to chair. Breathing feels a little better today. Still with congested cough and wheezing, but less. Sore throat better. Intake & Output 07/29/16 07/30/16 07/31/16 08/01/16 23:59 23:59 23:59 23:59 Intake Total 2950 1490 2500 50 Balance 2950 1490 2500 50 Last Vital Signs Temp Pulse Resp BP Pulse Ox 97.8 F 69 22 125/82 95 08/01/16 06:00 08/01/16 06:00 08/01/16 06:00 08/01/16 06:00 07/31/16 21:00 Active Medications Acetaminophen (Tylenol -) 650 mg PO Q6H PRN PRN Reason: FEVER OR PAIN Last Admin: 07/30/16 22:59 Dose: 650 mg Acetylcysteine (Mucomyst 20 Oral / Inh Use Only*) 200 mg NEB BID [facility] Last Admin: 08/01/16 10:00 Dose: 200 mg Albuterol Sulfate (Ventolin 0.083% Nebulizer Soln -) 1 amp NEB BID [facility] Last Admin: 08/01/16 10:00 Dose: 1 amp Amlodipine Besylate (Norvasc -) 10 mg PO DAILY [facility] Last Admin: 08/01/16 10:52 Dose: 10 mg Atorvastatin Calcium (Lipitor -) 20 mg PO HS [facility] Last Admin: 08/01/16 00:11 Dose: 20 mg Benzocaine/Menthol (Cepacol Lozenge -) 1 each MM Q4H PRN PRN Reason: SORE THROAT Last Admin: 08/01/16 10:57 Dose: 1 each Budesonide/Formoterol Fumarate (Symbicort 160/4.5mcg -) 2 puff IH BID [facility] Last Admin: 08/01/16 10:56 Dose: 2 puff Hydrocortisone (Anusol 2.5% Hc Cream -) 1 applic TP DAILY [facility] Last Admin: 08/01/16 10:53 Dose: 1 applic Insulin Aspart (Novolog Vial Sliding Scale -) 1 vial SQ ACHS KAREN PRN Reason: Protocol Last Admin: 08/01/16 11:38 Dose: 2 units Methylprednisolone Sodium Succinate (Solu-Medrol -) 40 mg IVPB Q8H-IV KAREN Metoclopramide HCl (Reglan -) 5 mg PO TIDAC [facility] Last Admin: 08/01/16 10:53 Dose: 5 mg Montelukast Sodium (Singulair -) 10 mg PO HS [facility] Last Admin: 08/01/16 00:11 Dose: 10 mg Multi-Ingredient Ointment (Zinc Oxide) 1 applic TP BID [facility] Last Admin: 08/01/16 11:01 Dose: 1 applic Genvoya-Patient's Own Medication (Non- Formulary) 1 each PO DAILY [facility] Last Admin: 08/01/16 10:54 Dose: 1 each Nystatin (Nystop Powder -) 1 applic TP DAILY [facility] Last Admin: 08/01/16 10:53 Dose: 1 applic [id number]-[id number] Ethyl Esters (Lovaza -) 2 gm PO BID [facility] Last Admin: 08/01/16 10:54 Dose: 2 gm Pantoprazole Sodium (Protonix -) 40 mg PO BID [facility] Last Admin: 08/01/16 10:52 Dose: 40 mg Sodium Chloride ([place] Nasal [place] -) 2 spray NS BID PRN PRN Reason: NASAL CONGESTION Last Admin: 07/31/16 10:06 Dose: 2 spray Tiotropium [place] (Spiriva -) 1 puff IH DAILY [facility] Last Admin: 08/01/16 10:55 Dose: 1 puff Trimethoprim/Sulfamethoxazole (Bactrim Ds -) 1 each PO DAILY [facility] Last Admin: 08/01/16 10:52 Dose: 1 each Zinc Oxide (Desitin Diaper Rash Oint -) 1 applic TP ASDIR PRN PRN Reason: HYGEINE Last Admin: 07/21/16 13:42 Dose: 1 applic Gen: Less tachypneic. Heart: RRR Lung: distant breath sounds, + rhonchi, wheezes Abd: soft, nontender, obese Ext: + edema Laboratory Results - last 24 hr 07/31/16 08/01/16 08/01/16 16:51 00:16 06:09 WBC RBC Hgb Hct MCV MCHC RDW Plt Count MPV Neutrophils % Lymphocytes % Monocytes % Eosinophils % Basophils % Polychromasia Anisocytosis Microcytosis Macrocytosis Tear Drop Cells Morphology Comment Sodium Potassium Chloride Carbon Dioxide Anion Gap BUN Creatinine POC Glucometer 223 213 186 Random Glucose Calcium 08/01/16 08/01/16 08/01/16 09:50 09:50 11:26 WBC 8.2 D RBC 5.02 Hgb 12.3 Hct 39.1 MCV 77.8 L MCHC 31.5 L RDW 20.7 H D Plt Count 248 D MPV 7.4 L Neutrophils % 86.5 H Lymphocytes % 5.4 L D Monocytes % 7.9 D Eosinophils % 0.0 Basophils % 0.2 Polychromasia 1+ Anisocytosis 1+ Microcytosis 1+ Macrocytosis 1+ Tear Drop Cells 1+ Morphology Comment Slide scanned Sodium 139 Potassium 4.4 Chloride 100 Carbon Dioxide 23 Anion Gap 16 BUN 16 Creatinine 0.8 POC Glucometer 166 Random Glucose 195 H Calcium 8.4 L A/P Acute Asthma Exacerbation Morbid Obesity PUMA Lactic Acidosis HIV - Albuterol / Mucomyst - Agree with Medrol taper - inhaled bronchodilators - singulair - monitor peak flow - O2 as needed - CPAP at night - DVT prophylaxis - Cepacol PRN Dr Dai
[2016-08-01] MEDS: methylPREDNISolone NA SUCC 40 MG/1 ML VIAL IVPB SCH (17:36)
[2016-08-01] MEDS: SODIUM CHLORIDE NASAL SPRAY 44 ML BOTTLE NS PRN (22:32)
[2016-08-02] MEDS: methylPREDNISolone NA SUCC 40 MG/1 ML VIAL IVPB SCH ×3 (03:18→19:06)
[2016-08-02] MEDS: METOCLOPRAMIDE HCL 10 MG TABLET (FP) PO SCH ×3 (06:35→17:38)
[2016-08-02] MEDS: INSULIN SLIDING SCALE (NOVOLOG) 1 VIAL SQ SCH ×4 (06:38→22:06)
[2016-08-02] MEDS: ALBUTEROL SO4 0.083% IH SOL 2.5 MG/3 ML VIAL.NEB. NEB SCH ×2 (10:10→22:20)
[2016-08-02] MEDS: ACETYLCYSTEINE 20% 200MG/ML 4 ML VIAL *FOR ORAL / INH USE ONLY NEB SCH ×2 (10:10→22:20)
[2016-08-02] MEDS ORDERED: PT OWN MED DRAWER 7, Y5N ONE ×2 (11:02→12:25)
[2016-08-02] MEDS: PANTOPRAZOLE 40 MG TABLET (FP) PO SCH ×2 (11:05→21:55)
[2016-08-02] MEDS: amLODIPine BESYLATE 10 MG TABLET (FP) PO SCH (11:05)
[2016-08-02] MEDS: SULFAMETHOXAZOLE/TRIMETHOPRIM 800MG/160MG D.S. TABLET PO SCH (11:05)
[2016-08-02] MEDS: GENVOYA PO SCH (11:07)
[2016-08-02] MEDS: OMEGA-3 ACID ETHYL ESTERS (FATTY-ACIDS) 1 GM CAPSULE (FP) PO SCH ×2 (11:08→21:55)
[2016-08-02] MEDS: TIOTROPIUM BROMIDE 18 MCG/INH (DEVICE W/ 5 CAPSULES) IH SCH (11:09)
[2016-08-02] MEDS: BUDESONIDE/FORMETEROL FUMARATE 160/4.5 mcg INHALER IH SCH ×2 (11:11→21:52)
[2016-08-02] MEDS: NYSTATIN POWDER 100,000 UNITS/GM - 15 GM TOPICAL POWDER TP SCH (11:13)
[2016-08-02] MEDS: ZINC OXIDE 20% TOPICAL OINTMENT 30 GM TUBE TP SCH ×2 (11:15→22:09)
[2016-08-02] MEDS: HYDROCORTISONE 2.5% TOPICAL CREAM 30 GM TUBE TP SCH (11:15)
[2016-08-02] MEDS: SODIUM CHLORIDE NASAL SPRAY 44 ML BOTTLE NS PRN (11:16)
[2016-08-02] MEDS ORDERED: INSULIN (NOVOLOG) ASPART 100 UNITS/ML 10ML VIAL ONE ×3 (11:30→18:00)
--- NOTE | 2016-08-02 14:23 | PN ---
Physical Exam: SUBJECTIVE: Patient seen and examined Patient resting in bed, NAD. afebrile and hemodynamically stable. On 3 L nc. Breathing is improved. Using incentive spirometer, awaiting PT chest rehab. denies f/c, diarrhea. burning in genital area during defecation, urination. Peak flow 210 OBJECTIVE: Vital Signs Period Temp Pulse Resp BP Sys/So Pulse Ox Last 24 Hr 97.5 F-97.9 F 77-93 16-24 120-156/67-89 95 GENERAL: Awake, alert, and fully oriented nad HEAD: Normal with no signs of trauma. EYES: extraocular movements intact, sclera anicteric, conjunctiva clear. No lid lag. EARS, NOSE, THROAT: Moist mucous membranes. NECK: submental and cervical lymphadenopathy, acanthosis nigricans LUNGS: improved air movement, decreased diffuse wheezes HEART: Regular rate and rhythm, normal S1 and S2 ABDOMEN: Soft, diffusely tender, not distended, normoactive bowel sounds, no guarding, no rebound, no masses. No hepatomegaly or splenomegaly. LOWER EXTREMITIES: warm, well-perfused. No calf tenderness. trace edema. NEUROLOGICAL: Normal speech. Gait not observed. PSYCHIATRIC: Cooperative. Good eye contact. Appropriate mood and affect. SKIN: Warm, dry Laboratory Results - last 24 hr 08/01/16 08/01/16 08/02/16 16:28 22:38 06:10 POC Glucometer 204 218 Magnesium 2.4 08/02/16 08/02/16 06:37 11:21 POC Glucometer 190 175 Magnesium Active Medications Generic Name Dose Route Start Last Admin Trade Name Freq PRN Reason Stop Dose Admin Acetaminophen 650 mg 07/21/16 05:33 07/30/16 22:59 Tylenol - PO 650 mg Q6H PRN Administration FEVER OR PAIN Acetylcysteine 200 mg 07/30/16 12:00 08/02/16 10:10 Mucomyst 20 Oral / Inh Use Only* NEB 200 mg BID [facility] Administration Albuterol Sulfate 1 amp 07/30/16 12:00 08/02/16 10:10 Ventolin 0.083% Nebulizer Soln - NEB 1 amp BID [facility] Administration Amlodipine Besylate 10 mg 07/31/16 10:00 08/02/16 11:05 Norvasc - PO 10 mg DAILY [facility] Administration Atorvastatin Calcium 20 mg 07/22/16 22:00 08/01/16 22:32 Lipitor - PO 20 mg HS [facility] Administration Benzocaine/Menthol 1 each 07/29/16 13:12 08/01/16 10:57 Cepacol Lozenge - MM 1 each Q4H PRN Administration SORE THROAT Budesonide/Formoterol Fumarate 2 puff 07/26/16 13:00 08/02/16 11:11 Symbicort 160/4.5mcg - IH 2 puff BID [facility] Administration Hydrocortisone 1 applic 07/22/16 13:00 08/02/16 11:15 Anusol 2.5% Hc Cream - TP 1 applic DAILY [facility] Administration Insulin Aspart 1 vial 07/22/16 16:30 08/02/16 11:47 Novolog Vial Sliding Scale - SQ 2 units ACHS [facility] Administration Protocol Methylprednisolone Sodium Succinate 40 mg 08/01/16 18:00 08/02/16 11:07 Solu-Medrol - IVPB 40 mg Q8H-IV [facility] Administration Metoclopramide HCl 5 mg 07/22/16 11:30 08/02/16 11:04 Reglan - PO 5 mg TIDAC [facility] Administration Montelukast Sodium 10 mg 07/26/16 22:00 08/01/16 22:32 Singulair - PO 10 mg HS [facility] Administration Multi-Ingredient Ointment 1 applic 07/31/16 22:00 08/02/16 11:15 Zinc Oxide TP 1 applic BID [facility] Administration Genvoya-Patient's 1 each 07/23/16 20:00 08/02/16 11:07 Own Medication (Non- PO 1 each Formulary) DAILY [facility] Administration Nystatin 1 applic 07/21/16 11:15 08/02/16 11:13 Nystop Powder - TP 1 applic DAILY [facility] Administration [id number]-1-[id number] Ethyl Esters 2 gm 07/22/16 12:45 08/02/16 11:08 Lovaza - PO 2 gm BID [facility] Administration Pantoprazole Sodium 40 mg 07/29/16 22:00 08/02/16 11:05 Protonix - PO 40 mg BID [facility] Administration Sodium Chloride 2 spray 07/30/16 12:45 08/02/16 11:16 [place] Nasal [place] - NS 2 spray BID PRN Administration NASAL CONGESTION Tiotropium [place] 1 puff 07/26/16 18:00 08/02/16 11:09 Spiriva - IH 1 puff DAILY [facility] Administration Trimethoprim/Sulfamethoxazole 1 each 07/27/16 16:45 08/02/16 11:05 Bactrim Ds - PO 1 each DAILY [facility] Administration Zinc Oxide 1 applic 07/21/16 11:13 07/21/16 13:42 Desitin Diaper Rash Oint - TP 1 applic ASDIR PRN Administration HYGEINE ASSESSMENT/PLAN: CXR: unremarkable Repeat CXR unremarkable CT head negative CT w and w/o contrast abd negative CT w and w/o contrast Chest negative ASSESSMENT/PLAN: 46 y/o F w/PMH of asthma, HIV (on genvoya), anemia, presents to ER with SOB and wheezing. Acute on chronic asthma exacerbation -symptomatic improvement -Solumedrol IV 40 q8h d2 -albuterol q6h belle, q 4 prn / mucomyst -symbicort with spacer 160 -singulair HS -pulm consult -bipap use at night -flu swab negative -2L NC -allergy testing outpatient -pulm consult appreciated -incentive spirometer -respiratory PT Upper GIB -r/o gastritis -self reported melena -occult blood + -history of steroid use w/o GI ppx -history of GERD, abd pain -H pylori test negative -Gi appreciated, possible endoscopy when respiratory status improves -PPi PO bid Chronic abd pain -likley gastritis, manage as above Rectal bleed -streak of blood in bm today -possible fissure vs hemorrhoid(palpated at 6 o'clock) -CT abd/pelvis unremarkable -hold hep -h/h stable Acute gastroenteritis -viral vs bacterial -resolved -stool studies negative DM -A1C 7.9 -BGM -sliding scale HLD/ high triglycerides -lipid panel: trig 425, cholest 217, ldl 125, hdl 63 -lipitor, fish oil Leukocytosis -likely reactive due to steroids Persistent lactic acidosis -4.4 appears to be her baseline -Likely type B (many possible causes), may be due to struggle with breathing -ID consult appreciated: unlikely infectious or due to HIV/HIV meds -does not require abx HTN -norvasc 10 DINA -Creat 0.7; resolved R sided numbness. headache -CT head unremarkable -B 12 wnl -check folate, lead, TSH HIV -genvoya -last CD4 187 -CD4 now 252 Morbid obesity -nutrition counseling PPX scd, ppi FEN No IVF lytes stable diabetic diet Dispo: [facility] [place] Visit type - Emergency Visit Emergency Visit: Yes ED Registration Date: 07/21/16 Care time: The patient presented to the Emergency Department on the above date and was hospitalized for further evaluation of their emergent condition. - New Patient This patient is new to me today: No - Critical Care Critical Care patient: No - Discharge Referral Referred to [facility] Med P.C.: No
--- NOTE | 2016-08-02 15:11 | PN ---
Progress Note (short form) - Note Progress Note: PULMONARY SLIGHT SUBJECTIVE IMPROVEMENT VSS/ANICTERIC B/L WHEEZE ANTERIOR/POSTERIOR MODERATE S1S2 BS+ SOFT OBESE LESS LOWER EXT DEPENDANT EDEMA LABS/MEDS/NOTES/IMAGING REVIEWED ACUTE EXACERBATION ASTHMA SUPER MORBID OBESITY LIKELY OSAS/OHS HIV CONTINUE CURRENT TREATMENT HOPE TO REDUCE STEROIDS SOON MONITOR DAILY PEAK FLOW MUCOMYST IS HELPING Mitali MASON MD
--- NOTE | 2016-08-02 18:15 | PN ---
Teaching Attending Note Name of Resident: Lida Pretty ATTENDING PHYSICIAN STATEMENT I saw and evaluated the patient. I reviewed the resident's note and discussed the case with the resident. I agree with the resident's findings and plan as documented. SUBJECTIVE: no fever or chills, has her period again ( last one 2 weeks ago ). OBJECTIVE: NAD. CV: RRR, no MRG Lungs: improved air entry compared to last exam ,scattered wheezing Ext: no edema ASSESSMENT AND PLAN: 46 y/o lady with h/o Asthma, HIV, anemia who presented with SOB and wheezing , Abd pain N/V and rectal bleed . She was found to have Asthma exacerbation 1- Asthma exacerbation : no evidence of PNA . Peak [id number] today , but clinically sounds better - cont ALbuterol Nebs QID , and PRN - cont Advair and spiriva - check Peak flow daily - cont high dose steroids 2- New onset DM: - SSI now - oral medications at dc ( NOt metformin) 3-Lactic acidosis: Type B. occasional monitoring of lactic acid 4- GI bleed :cont to have minimal rectal bleed but no significant drop in HB - EGD and colono as out pt 5- HIV : cont Genvoya HLOC
[2016-08-02] MEDS: BENZOCAINE/MENTH/CETYLPYRD CL 1 EACH LOZENGE MM PRN (21:55)
[2016-08-02] MEDS: MONTELUKAST NA 10 MG TABLET PO SCH (21:55)
[2016-08-02] MEDS: ATORVASTATIN CA 20 MG TABLET (FP) PO SCH (21:55)
[2016-08-02] MEDS: ACETAMINOPHEN 325 MG TABLET (FP) PO PRN (21:56)
[2016-08-03] MEDS: methylPREDNISolone NA SUCC 40 MG/1 ML VIAL IVPB SCH ×3 (02:38→21:34)
[2016-08-03] MEDS: METOCLOPRAMIDE HCL 10 MG TABLET (FP) PO SCH ×3 (06:26→17:46)
[2016-08-03] MEDS: INSULIN SLIDING SCALE (NOVOLOG) 1 VIAL SQ SCH ×4 (06:28→21:34)
[2016-08-03] MEDS: PANTOPRAZOLE 40 MG TABLET (FP) PO SCH ×2 (09:25→21:34)
[2016-08-03] MEDS: GENVOYA PO SCH (09:25)
[2016-08-03] MEDS: SULFAMETHOXAZOLE/TRIMETHOPRIM 800MG/160MG D.S. TABLET PO SCH (09:25)
[2016-08-03] MEDS: amLODIPine BESYLATE 10 MG TABLET (FP) PO SCH (09:25)
[2016-08-03] MEDS: BUDESONIDE/FORMETEROL FUMARATE 160/4.5 mcg INHALER IH SCH ×2 (09:26→21:32)
[2016-08-03] MEDS: TIOTROPIUM BROMIDE 18 MCG/INH (DEVICE W/ 5 CAPSULES) IH SCH (09:26)
[2016-08-03] MEDS: HYDROCORTISONE 2.5% TOPICAL CREAM 30 GM TUBE TP SCH (09:28)
[2016-08-03] MEDS: OMEGA-3 ACID ETHYL ESTERS (FATTY-ACIDS) 1 GM CAPSULE (FP) PO SCH ×2 (09:29→21:33)
[2016-08-03] MEDS: NYSTATIN POWDER 100,000 UNITS/GM - 15 GM TOPICAL POWDER TP SCH (09:29)
[2016-08-03] MEDS: ZINC OXIDE 20% TOPICAL OINTMENT 30 GM TUBE TP SCH ×2 (09:29→21:34)
[2016-08-03] MEDS: ACETYLCYSTEINE 20% 200MG/ML 4 ML VIAL *FOR ORAL / INH USE ONLY NEB SCH ×2 (10:08→22:41)
[2016-08-03] MEDS: ALBUTEROL SO4 0.083% IH SOL 2.5 MG/3 ML VIAL.NEB. NEB SCH ×2 (10:09→22:41)
--- NOTE | 2016-08-03 12:24 | PN ---
Progress Note (short form) - Note Progress Note: OOB to chair. No improvement from yesterday. Does not have her CPAP here and is not sure what pressure the device is set. Still with congested cough and wheezing, but less than on admission. Sore throat better. Intake & Output 07/31/16 08/01/16 08/02/16 08/03/16 23:59 23:59 23:59 23:59 Intake Total 2500 1380 1235 250 Balance 2500 1380 1235 250 Last Vital Signs Temp Pulse Resp BP Pulse Ox 98.0 F 80 18 148/63 93 L 08/03/16 10:00 08/03/16 10:00 08/03/16 10:00 08/03/16 10:00 08/02/16 11:30 Active Medications Acetaminophen (Tylenol -) 650 mg PO Q6H PRN PRN Reason: FEVER OR PAIN Last Admin: 08/02/16 21:56 Dose: 650 mg Acetylcysteine (Mucomyst 20 Oral / Inh Use Only*) 200 mg NEB BID [facility] Last Admin: 08/03/16 10:08 Dose: 200 mg Albuterol Sulfate (Ventolin 0.083% Nebulizer Soln -) 1 amp NEB BID [facility] Last Admin: 08/03/16 10:09 Dose: 1 amp Amlodipine Besylate (Norvasc -) 10 mg PO DAILY [facility] Last Admin: 08/03/16 09:25 Dose: 10 mg Atorvastatin Calcium (Lipitor -) 20 mg PO HS [facility] Last Admin: 08/02/16 21:55 Dose: 20 mg Benzocaine/Menthol (Cepacol Lozenge -) 1 each MM Q4H PRN PRN Reason: SORE THROAT Last Admin: 08/02/16 21:55 Dose: 1 each Budesonide/Formoterol Fumarate (Symbicort 160/4.5mcg -) 2 puff IH BID [facility] Last Admin: 08/03/16 09:26 Dose: 2 puff Hydrocortisone (Anusol 2.5% Hc Cream -) 1 applic TP DAILY [facility] Last Admin: 08/03/16 09:28 Dose: 1 applic Insulin Aspart (Novolog Vial Sliding Scale -) 1 vial SQ ACHS KAREN PRN Reason: Protocol Last Admin: 08/03/16 11:33 Dose: 2 units Methylprednisolone Sodium Succinate (Solu-Medrol -) 40 mg IVPB Q8H-IV [facility] Last Admin: 08/03/16 09:24 Dose: 40 mg Metoclopramide HCl (Reglan -) 5 mg PO TIDAC [facility] Last Admin: 08/03/16 11:11 Dose: 5 mg Montelukast Sodium (Singulair -) 10 mg PO HS [facility] Last Admin: 08/02/16 21:55 Dose: 10 mg Multi-Ingredient Ointment (Zinc Oxide) 1 applic TP BID [facility] Last Admin: 08/03/16 09:29 Dose: 1 applic Genvoya-Patient's Own Medication (Non- Formulary) 1 each PO DAILY [facility] Last Admin: 08/03/16 09:25 Dose: 1 each Nystatin (Nystop Powder -) 1 applic TP DAILY [facility] Last Admin: 08/03/16 09:29 Dose: 1 applic Rifop-9-Qlvv Ethyl Esters (Lovaza -) 2 gm PO BID [facility] Last Admin: 08/03/16 09:29 Dose: 2 gm Pantoprazole Sodium (Protonix -) 40 mg PO BID [facility] Last Admin: 08/03/16 09:25 Dose: 40 mg Sodium Chloride ([place] Nasal [place] -) 2 spray NS BID PRN PRN Reason: NASAL CONGESTION Last Admin: 08/02/16 11:16 Dose: 2 spray Tiotropium [place] (Spiriva -) 1 puff IH DAILY [facility] Last Admin: 08/03/16 09:26 Dose: 1 puff Trimethoprim/Sulfamethoxazole (Bactrim Ds -) 1 each PO DAILY [facility] Last Admin: 08/03/16 09:25 Dose: 1 each Zinc Oxide (Desitin Diaper Rash Oint -) 1 applic TP ASDIR PRN PRN Reason: HYGEINE Last Admin: 07/21/16 13:42 Dose: 1 applic Gen: Less tachypneic. Heart: RRR Lung: distant breath sounds, + rhonchi, wheezes Abd: soft, nontender, obese Ext: + edema Laboratory Results - last 24 hr 08/02/16 08/02/16 08/03/16 17:40 22:05 06:27 POC Glucometer 206 240 198 08/03/16 11:15 POC Glucometer 178 A/P Acute Asthma Exacerbation Morbid Obesity PUMA Lactic Acidosis HIV - Albuterol / Mucomyst - Medrol at current dose - inhaled bronchodilators - singulair - monitor peak flow - O2 as needed - CPAP at night to be ordered -> will give arbitrary setting until the patient can get her own device here - DVT prophylaxis Dr Dai
--- NOTE | 2016-08-03 12:36 | PN ---
Addendum entered and electronically signed by Lida Pretty RES 08/03/16 12: 41: continue medrol q 8h per pulm suggestion Original Note: Physical Exam: SUBJECTIVE: Patient seen and examined Patient resting in bed, NAD. afebrile and hemodynamically stable. On 2 L nc. Breathing is the same. Using incentive spirometer, awaiting PT chest rehab. denies f/c, diarrhea. + blood streaked BM. Peak flow 230 OBJECTIVE: Vital Signs Period Temp Pulse Resp BP Sys/So Pulse Ox Last 24 Hr 97.5 F-98.0 F 79-93 16-24 129-148/63-89 GENERAL: Awake, alert, and fully oriented nad HEAD: Normal with no signs of trauma. EYES: extraocular movements intact, sclera anicteric, conjunctiva clear. No lid lag. EARS, NOSE, THROAT: Moist mucous membranes. NECK: submental and cervical lymphadenopathy, acanthosis nigricans LUNGS: the same air movement, diffuse wheezes HEART: Regular rate and rhythm, normal S1 and S2 ABDOMEN: Soft, diffusely tender, not distended, normoactive bowel sounds, no guarding, no rebound, no masses. No hepatomegaly or splenomegaly. LOWER EXTREMITIES: warm, well-perfused. No calf tenderness. trace edema. NEUROLOGICAL: Normal speech. Gait not observed. PSYCHIATRIC: Cooperative. Good eye contact. Appropriate mood and affect. SKIN: Warm, dry Laboratory Results - last 24 hr 08/02/16 08/02/16 08/03/16 17:40 22:05 06:27 POC Glucometer 206 240 198 08/03/16 11:15 POC Glucometer 178 Active Medications Generic Name Dose Route Start Last Admin Trade Name Freq PRN Reason Stop Dose Admin Acetaminophen 650 mg 07/21/16 05:33 08/02/16 21:56 Tylenol - PO 650 mg Q6H PRN Administration FEVER OR PAIN Acetylcysteine 200 mg 07/30/16 12:00 08/03/16 10:08 Mucomyst 20 Oral / Inh Use Only* NEB 200 mg BID [facility] Administration Albuterol Sulfate 1 amp 07/30/16 12:00 08/03/16 10:09 Ventolin 0.083% Nebulizer Soln - NEB 1 amp BID [facility] Administration Amlodipine Besylate 10 mg 07/31/16 10:00 04/06/17 09:25 Norvasc - PO 10 mg DAILY [facility] Administration Atorvastatin Calcium 20 mg 07/22/16 22:00 08/02/16 21:55 Lipitor - PO 20 mg HS [facility] Administration Benzocaine/Menthol 1 each 07/29/16 13:12 08/02/16 21:55 Cepacol Lozenge - MM 1 each Q4H PRN Administration SORE THROAT Budesonide/Formoterol Fumarate 2 puff 07/26/16 13:00 08/03/16 09:26 Symbicort 160/4.5mcg - IH 2 puff BID [facility] Administration Hydrocortisone 1 applic 07/22/16 13:00 08/03/16 09:28 Anusol 2.5% Hc Cream - TP 1 applic DAILY [facility] Administration Insulin Aspart 1 vial 07/22/16 16:30 08/03/16 11:33 Novolog Vial Sliding Scale - SQ 2 units ACHS [facility] Administration Protocol Methylprednisolone Sodium Succinate 40 mg 08/01/16 18:00 08/03/16 09:24 Solu-Medrol - IVPB 40 mg Q8H-IV [facility] Administration Metoclopramide HCl 5 mg 07/22/16 11:30 08/03/16 11:11 Reglan - PO 5 mg TIDAC [facility] Administration Montelukast Sodium 10 mg 07/26/16 22:00 08/02/16 21:55 Singulair - PO 10 mg HS [facility] Administration Multi-Ingredient Ointment 1 applic 07/31/16 22:00 08/03/16 09:29 Zinc Oxide TP 1 applic BID [facility] Administration Genvoya-Patient's 1 each 07/23/16 20:00 08/03/16 09:25 Own Medication (Non- PO 1 each Formulary) DAILY [facility] Administration Nystatin 1 applic 07/21/16 11:15 08/03/16 09:29 Nystop Powder - TP 1 applic DAILY [facility] Administration Ynikk-8-Izdr Ethyl Esters 2 gm 07/22/16 12:45 08/03/16 09:29 Lovaza - PO 2 gm BID [facility] Administration Pantoprazole Sodium 40 mg 07/29/16 22:00 08/03/16 09:25 Protonix - PO 40 mg BID [facility] Administration Sodium Chloride 2 spray 07/30/16 12:45 08/02/16 11:16 [place] Nasal [place] - NS 2 spray BID PRN Administration NASAL CONGESTION Tiotropium [place] 1 puff 07/26/16 18:00 08/03/16 09:26 Spiriva - IH 1 puff DAILY [facility] Administration Trimethoprim/Sulfamethoxazole 1 each 07/27/16 16:45 08/03/16 09:25 Bactrim Ds - PO 1 each DAILY [facility] Administration Zinc Oxide 1 applic 07/21/16 11:13 07/21/16 13:42 Desitin Diaper Rash Oint - TP 1 applic ASDIR PRN Administration HYGEINE ASSESSMENT/PLAN: CXR: unremarkable Repeat CXR unremarkable CT head negative CT w and w/o contrast abd negative CT w and w/o contrast Chest negative ASSESSMENT/PLAN: 46 y/o F w/PMH of asthma, HIV (on genvoya), anemia, presents to ER with SOB and wheezing. Acute on chronic asthma exacerbation -symptomatic improvement -Solumedrol IV 40 q12h -albuterol q6h belle, q 4 prn / mucomyst -symbicort with spacer 160 -singulair HS -pulm consult -bipap use at night -flu swab negative -2L NC -allergy testing outpatient -pulm consult appreciated -incentive spirometer -respiratory PT Upper GIB -r/o gastritis -self reported melena -occult blood + -history of steroid use w/o GI ppx -history of GERD, abd pain -H pylori test negative -Gi appreciated, possible endoscopy when respiratory status improves -PPi PO bid Chronic abd pain -likley gastritis, manage as above Rectal bleed -streak of blood in bm today -possible fissure vs hemorrhoid(palpated at 6 o'clock) -CT abd/pelvis unremarkable -hold hep -h/h stable Acute gastroenteritis -viral vs bacterial -resolved -stool studies negative DM -A1C 7.9 -BGM -sliding scale HLD/ high triglycerides -lipid panel: trig 425, cholest 217, ldl 125, hdl 63 -lipitor, fish oil Leukocytosis -likely reactive due to steroids Persistent lactic acidosis -4.4 appears to be her baseline -Likely type B (many possible causes), may be due to struggle with breathing -ID consult appreciated: unlikely infectious or due to HIV/HIV meds -does not require abx HTN -norvasc 10 DINA -Creat 0.7; resolved R sided numbness. headache -CT head unremarkable -B 12 wnl -check folate, lead, TSH HIV -genvoya -last CD4 187 -CD4 now 252 Morbid obesity -nutrition counseling PPX scd, ppi FEN No IVF lytes stable diabetic diet Dispo: [facility] [place] Visit type - Emergency Visit Emergency Visit: Yes ED Registration Date: 07/21/16 Care time: The patient presented to the Emergency Department on the above date and was hospitalized for further evaluation of their emergent condition. - New Patient This patient is new to me today: No - Critical Care Critical Care patient: No - Discharge Referral Referred to [facility] Med P.C.: No
[2016-08-03] MEDS ORDERED: methylPREDNISolone NA SUCC 40 MG/1 ML VIAL IVPB SCH ×2 (14:00→22:00)
--- NOTE | 2016-08-03 15:10 | PN ---
Teaching Attending Note Name of Resident: Lida Pretty ATTENDING PHYSICIAN STATEMENT I saw and evaluated the patient. I reviewed the resident's note and discussed the case with the resident. I agree with the resident's findings and plan as documented. SUBJECTIVE: no fever or chills. breathing is better OBJECTIVE: NAD. CV: RRR, no MRG Lungs: good air entry ,scattered wheezing Ext: no edema ASSESSMENT AND PLAN: 46 y/o lady with h/o Asthma, HIV, anemia who presented with SOB and wheezing , Abd pain N/V and rectal bleed . She was found to have Asthma exacerbation 1- Asthma exacerbation : no evidence of PNA . Peak [id number] today ,lung exam has improved - cont ALbuterol Nebs QID , and PRN - cont Advair and spiriva - check Peak flow daily - decrease steroids to 40 BID - started on CPAP , which will help 2- New onset DM: - SSI now - oral medications at dc ( NOt metformin) 3-Lactic acidosis: Type B. occasional monitoring of lactic acid 4- GI bleed :cont to have minimal rectal bleed but no significant drop in HB - EGD and colono as out pt 5- HIV : cont Genvoya HLOC
[2016-08-03] MEDS ORDERED: INSULIN (NOVOLOG) ASPART 100 UNITS/ML 10ML VIAL ONE (21:15)
[2016-08-03] MEDS: ACETAMINOPHEN 325 MG TABLET (FP) PO PRN (21:33)
[2016-08-03] MEDS: ATORVASTATIN CA 20 MG TABLET (FP) PO SCH (21:33)
[2016-08-03] MEDS: MONTELUKAST NA 10 MG TABLET PO SCH (21:34)
[2016-08-04] MEDS: METOCLOPRAMIDE HCL 10 MG TABLET (FP) PO SCH ×3 (06:46→16:23)
[2016-08-04] MEDS: INSULIN SLIDING SCALE (NOVOLOG) 1 VIAL SQ SCH ×4 (06:46→22:52)
[2016-08-04] MEDS: amLODIPine BESYLATE 10 MG TABLET (FP) PO SCH (09:39)
[2016-08-04] MEDS: SULFAMETHOXAZOLE/TRIMETHOPRIM 800MG/160MG D.S. TABLET PO SCH (09:39)
[2016-08-04] MEDS: OMEGA-3 ACID ETHYL ESTERS (FATTY-ACIDS) 1 GM CAPSULE (FP) PO SCH ×2 (09:39→22:50)
[2016-08-04] MEDS: PANTOPRAZOLE 40 MG TABLET (FP) PO SCH ×2 (09:40→22:50)
[2016-08-04] MEDS: BUDESONIDE/FORMETEROL FUMARATE 160/4.5 mcg INHALER IH SCH ×2 (09:40→22:50)
[2016-08-04] MEDS: methylPREDNISolone NA SUCC 40 MG/1 ML VIAL IVPB SCH ×2 (09:40→22:50)
[2016-08-04] MEDS: TIOTROPIUM BROMIDE 18 MCG/INH (DEVICE W/ 5 CAPSULES) IH SCH (09:41)
[2016-08-04] MEDS: GENVOYA PO SCH (09:43)
[2016-08-04] MEDS: ACETYLCYSTEINE 20% 200MG/ML 4 ML VIAL *FOR ORAL / INH USE ONLY NEB SCH ×2 (09:55→22:40)
[2016-08-04] MEDS: ZINC OXIDE 20% TOPICAL OINTMENT 30 GM TUBE TP SCH ×2 (09:55→22:54)
[2016-08-04] MEDS: NYSTATIN POWDER 100,000 UNITS/GM - 15 GM TOPICAL POWDER TP SCH (09:55)
[2016-08-04] MEDS: ALBUTEROL SO4 0.083% IH SOL 2.5 MG/3 ML VIAL.NEB. NEB SCH ×2 (09:55→22:40)
[2016-08-04] MEDS: HYDROCORTISONE 2.5% TOPICAL CREAM 30 GM TUBE TP SCH ×2 (09:56→22:55)
[2016-08-04] MEDS ORDERED: INSULIN (NOVOLOG) ASPART 100 UNITS/ML 10ML VIAL ONE ×2 (11:34→22:46)
--- NOTE | 2016-08-04 15:18 | PN ---
Physical Exam: SUBJECTIVE: Patient seen and examined Patient resting in bed, NAD. afebrile and hemodynamically stable. On 3 L nc. Breathing is the same. Using incentive spirometer, s/p PT chest rehab. denies f/ c, diarrhea. + blood streaked BM. Peak flow 260 OBJECTIVE: Vital Signs Period Temp Pulse Resp BP Sys/So Pulse Ox Last 24 Hr 97.5 F-98.2 F 74-88 16-24 135-163/63-87 96-97 GENERAL: Awake, alert, and fully oriented nad HEAD: Normal with no signs of trauma. EYES: extraocular movements intact, sclera anicteric, conjunctiva clear. No lid lag. EARS, NOSE, THROAT: Moist mucous membranes. NECK: submental and cervical lymphadenopathy, acanthosis nigricans LUNGS: slightly more restricted air movement, less wheezes HEART: Regular rate and rhythm, normal S1 and S2 ABDOMEN: Soft, diffusely tender, not distended, normoactive bowel sounds, no guarding, no rebound, no masses. No hepatomegaly or splenomegaly. LOWER EXTREMITIES: warm, well-perfused. No calf tenderness. trace edema. NEUROLOGICAL: Normal speech. Gait not observed. PSYCHIATRIC: Cooperative. Good eye contact. Appropriate mood and affect. SKIN: Warm, dry Laboratory Results - last 24 hr 08/03/16 08/03/16 08/04/16 17:09 21:31 06:42 POC Glucometer 187 289 206 08/04/16 11:09 POC Glucometer 168 Active Medications Generic Name Dose Route Start Last Admin Trade Name Freq PRN Reason Stop Dose Admin Acetaminophen 650 mg 07/21/16 05:33 08/03/16 21:33 Tylenol - PO 650 mg Q6H PRN Administration FEVER OR PAIN Acetylcysteine 200 mg 07/30/16 12:00 08/04/16 09:55 Mucomyst 20 Oral / Inh Use Only* NEB 200 mg BID BELLE Administration Albuterol Sulfate 1 amp 07/30/16 12:00 08/04/16 09:55 Ventolin 0.083% Nebulizer Soln - NEB 1 amp BID BELLE Administration Amlodipine Besylate 10 mg 07/31/16 10:00 08/04/16 09:39 Norvasc - PO 10 mg DAILY BELLE Administration Atorvastatin Calcium 20 mg 07/22/16 22:00 08/03/16 21:33 Lipitor - PO 20 mg HS BELLE Administration Benzocaine/Menthol 1 each 07/29/16 13:12 08/02/16 21:55 Cepacol Lozenge - MM 1 each Q4H PRN Administration SORE THROAT Budesonide/Formoterol Fumarate 2 puff 07/26/16 13:00 08/04/16 09:40 Symbicort 160/4.5mcg - IH 2 puff BID BELLE Administration Hydrocortisone 1 applic 07/22/16 13:00 08/04/16 09:56 Anusol 2.5% Hc Cream - TP Not Given DAILY BELLE Insulin Aspart 1 vial 07/22/16 16:30 08/04/16 11:41 Novolog Vial Sliding Scale - SQ 2 units ACHS BELLE Administration Protocol Methylprednisolone Sodium Succinate 40 mg 08/03/16 22:00 08/04/16 09:40 Solu-Medrol - IVPB 40 mg BID BELLE Administration Metoclopramide HCl 5 mg 07/22/16 11:30 08/04/16 11:40 Reglan - PO 5 mg TIDAC BELLE Administration Montelukast Sodium 10 mg 07/26/16 22:00 08/03/16 21:34 Singulair - PO 10 mg HS BELLE Administration Multi-Ingredient Ointment 1 applic 07/31/16 22:00 08/04/16 09:55 Zinc Oxide TP 1 applic BID BELLE Administration Genvoya-Patient's 1 each 07/23/16 20:00 08/04/16 09:43 Own Medication (Non- PO 1 each Formulary) DAILY BELLE Administration Nystatin 1 applic 07/21/16 11:15 08/04/16 09:55 Nystop Powder - TP 1 applic DAILY BELLE Administration Qftcp-1-Gaof Ethyl Esters 2 gm 07/22/16 12:45 08/04/16 09:39 Lovaza - PO 2 gm BID BELLE Administration Pantoprazole Sodium 40 mg 07/29/16 22:00 08/04/16 09:40 Protonix - PO 40 mg BID BELLE Administration Sodium Chloride 2 spray 07/30/16 12:45 08/02/16 11:16 [place] Nasal [place] - NS 2 spray BID PRN Administration NASAL CONGESTION Tiotropium [place] 1 puff 07/26/16 18:00 08/04/16 09:41 Spiriva - IH 1 puff DAILY BELLE Administration Trimethoprim/Sulfamethoxazole 1 each 07/27/16 16:45 08/04/16 09:39 Bactrim Ds - PO 1 each DAILY BELLE Administration Zinc Oxide 1 applic 07/21/16 11:13 07/21/16 13:42 Desitin Diaper Rash Oint - TP 1 applic ASDIR PRN Administration HYGEINE ASSESSMENT/PLAN: CXR: unremarkable Repeat CXR unremarkable CT head negative CT w and w/o contrast abd negative CT w and w/o contrast Chest negative ASSESSMENT/PLAN: 46 y/o F w/PMH of asthma, HIV (on genvoya), anemia, presents to ER with SOB and wheezing. Acute on chronic asthma exacerbation -symptomatically stable -Solumedrol IV 40 q12h d2 -albuterol q6h belle, q 4 prn / mucomyst -symbicort with spacer 160 -singulair HS -pulm consult -bipap use at night -flu swab negative -2L NC -allergy testing outpatient -pulm consult appreciated -incentive spirometer -respiratory PT Upper GIB -r/o gastritis -self reported melena -occult blood + -history of steroid use w/o GI ppx -history of GERD, abd pain -H pylori test negative -Gi appreciated, possible endoscopy when respiratory status improves -PPi PO bid Chronic abd pain -likley gastritis, manage as above Rectal bleed -streak of blood in bm today -possible fissure vs hemorrhoid(palpated at 6 o'clock) -CT abd/pelvis unremarkable -hold hep -h/h stable Acute gastroenteritis -viral vs bacterial -resolved -stool studies negative DM -A1C 7.9 -BGM -sliding scale HLD/ high triglycerides -lipid panel: trig 425, cholest 217, ldl 125, hdl 63 -lipitor, fish oil Leukocytosis -likely reactive due to steroids Persistent lactic acidosis -4.4 appears to be her baseline -Likely type B (many possible causes), may be due to struggle with breathing -ID consult appreciated: unlikely infectious or due to HIV/HIV meds -does not require abx HTN -norvasc 10 DINA -Creat 0.7; resolved R sided numbness. headache -CT head unremarkable -B 12 wnl -check folate, lead, TSH HIV -genvoya -last CD4 187 -CD4 now 252 Morbid obesity -nutrition counseling PPX scd, ppi FEN No IVF lytes stable diabetic diet Dispo: [facility] [place] Visit type - Emergency Visit Emergency Visit: Yes ED Registration Date: 07/21/16 Care time: The patient presented to the Emergency Department on the above date and was hospitalized for further evaluation of their emergent condition. - New Patient This patient is new to me today: No - Critical Care Critical Care patient: No - Discharge Referral Referred to [facility] Med P.C.: No
--- NOTE | 2016-08-04 16:25 | PN ---
Progress Note (short form) - Note Progress Note: PULMONARY SLIGHT SUBJECTIVE IMPROVEMENT OOB TO CHAIR VSS/ANICTERIC B/L WHEEZE ANTERIOR/POSTERIOR MODERATE S1S2 BS+ SOFT OBESE LESS LOWER EXT DEPENDANT EDEMA LABS/MEDS/NOTES/IMAGING REVIEWED ACUTE EXACERBATION ASTHMA SUPER MORBID OBESITY LIKELY OSAS/OHS HIV CONTINUE CURRENT TREATMENT HOPE TO REDUCE STEROIDS SOON MONITOR DAILY PEAK FLOW MUCOMYST IS HELPING NIPPV DEVENDRA MASON MD
--- NOTE | 2016-08-04 18:35 | PN ---
Teaching Attending Note Name of Resident: Lida Pretty ATTENDING PHYSICIAN STATEMENT I saw and evaluated the patient. I reviewed the resident's note and discussed the case with the resident. I agree with the resident's findings and plan as documented. SUBJECTIVE: no fever ro chills, breathing has slightly improved OBJECTIVE: NAD. CV: RRR, no MRG Lungs: good air entry ,scattered wheezing Ext: no edema ASSESSMENT AND PLAN: 46 y/o lady with h/o Asthma, HIV, anemia who presented with SOB and wheezing , Abd pain N/V and rectal bleed . She was found to have Asthma exacerbation 1- Asthma exacerbation : no evidence of PNA . Peak flow 260 today ,lung exam has improved - cont ALbuterol Nebs QID, and PRN - cont Advair and spiriva - check Peak flow daily - cont steroids at 40 BID -cont CPAP 2- New onset DM: - SSI now - Oral medications at dc ( NOt metformin) 3-Lactic acidosis: Type B. occasional monitoring of lactic acid 4- GI bleed: cont to have minimal rectal bleed but no significant drop in HB - EGD and colono as out pt 5- HIV : cont Genvoya HLOC
[2016-08-04] MEDS ORDERED: PT OWN MED DRAWER 7, Y5N ONE (22:45)
[2016-08-04] MEDS: ATORVASTATIN CA 20 MG TABLET (FP) PO SCH (22:51)
[2016-08-04] MEDS: MONTELUKAST NA 10 MG TABLET PO SCH (22:51)
[2016-08-04] MEDS: CLOTRIMAZOLE 1% CREAM 15 GM TUBE TP SCH (22:53)
[2016-08-04] MEDS: MUPIROCIN CA 2% TOPICAL CREAM 15 GM TUBE TP SCH (22:53)
[2016-08-05] MEDS ORDERED: INSULIN (NOVOLOG) ASPART 100 UNITS/ML 10ML VIAL ONE (06:41)
[2016-08-05] MEDS: INSULIN SLIDING SCALE (NOVOLOG) 1 VIAL SQ SCH ×4 (06:47→23:13)
[2016-08-05] MEDS: METOCLOPRAMIDE HCL 10 MG TABLET (FP) PO SCH ×3 (06:47→16:40)
[2016-08-05] MEDS: ACETYLCYSTEINE 20% 200MG/ML 4 ML VIAL *FOR ORAL / INH USE ONLY NEB SCH ×2 (10:00→22:35)
[2016-08-05] MEDS: ALBUTEROL SO4 0.083% IH SOL 2.5 MG/3 ML VIAL.NEB. NEB SCH ×2 (10:00→22:35)
[2016-08-05] MEDS ORDERED: PT OWN MED DRAWER 7, Y5N ONE (11:00)
[2016-08-05] MEDS: methylPREDNISolone NA SUCC 40 MG/1 ML VIAL IVPB SCH ×2 (11:02→23:00)
[2016-08-05] MEDS: SULFAMETHOXAZOLE/TRIMETHOPRIM 800MG/160MG D.S. TABLET PO SCH (11:04)
[2016-08-05] MEDS: amLODIPine BESYLATE 10 MG TABLET (FP) PO SCH (11:04)
[2016-08-05] MEDS: BUDESONIDE/FORMETEROL FUMARATE 160/4.5 mcg INHALER IH SCH ×2 (11:05→23:01)
[2016-08-05] MEDS: GENVOYA PO SCH (11:06)
[2016-08-05] MEDS: PANTOPRAZOLE 40 MG TABLET (FP) PO SCH ×2 (11:06→22:59)
[2016-08-05] MEDS: OMEGA-3 ACID ETHYL ESTERS (FATTY-ACIDS) 1 GM CAPSULE (FP) PO SCH ×2 (11:07→22:59)
[2016-08-05] MEDS: ZINC OXIDE 20% TOPICAL OINTMENT 30 GM TUBE TP SCH ×2 (11:14→23:01)
[2016-08-05] MEDS: HYDROCORTISONE 2.5% TOPICAL CREAM 30 GM TUBE TP SCH (11:16)
[2016-08-05] MEDS: MUPIROCIN CA 2% TOPICAL CREAM 15 GM TUBE TP SCH ×2 (11:18→23:00)
[2016-08-05] MEDS: CLOTRIMAZOLE 1% CREAM 15 GM TUBE TP SCH ×2 (11:18→23:00)
--- NOTE | 2016-08-05 12:53 | PN ---
Progress Note (short form) - Note Progress Note: Subjective: Feels her breathing is better. NO fever or chills, still has her period but less bleeding. minimal streaking with stool . Objective: Vital Signs: Last Vital Signs Temp Pulse Resp BP Pulse Ox 97.9 F 82 20 104/72 98 08/05/16 06:00 08/05/16 11:39 08/05/16 06:00 08/05/16 06:00 08/05/16 11:39 Labs: Laboratory Results - last 24 hr 08/04/16 08/04/16 08/05/16 16:20 21:37 06:05 POC Glucometer 224 214 216 Physical exam : NAD. CV: RRR, no MRG Lungs: improved good air entry, scattered wheezing Ext: no edema. ASSESSMENT AND PLAN: 46 y/o lady with h/o Asthma, HIV, anemia who presented with SOB and wheezing , Abd pain N/V and rectal bleed . She was found to have Asthma exacerbation 1- Asthma exacerbation : no evidence of PNA . Lung exam and peak flow are stable from yesterday - cont Albuterol Nebs QID, and PRN - cont Advair and spiriva - check Peak flow daily - cont steroids at 40 BID - cont CPAP 2- New onset DM: - SSI now - Oral medications at dc ( not metformin) 3-Lactic acidosis: Type B. occasional monitoring of lactic acid( will check tomorrow ) 4- GI bleed: cont to have minimal rectal bleed . will check CBC tomorrow - EGD and colono as out pt 5- HIV : cont Genvoya HLOC Visit type - Emergency Visit Emergency Visit: Yes ED Registration Date: 07/21/16 Care time: The patient presented to the Emergency Department on the above date and was hospitalized for further evaluation of their emergent condition. - New Patient This patient is new to me today: No - Critical Care Critical Care patient: No
[2016-08-05] MEDS: TIOTROPIUM BROMIDE 18 MCG/INH (DEVICE W/ 5 CAPSULES) IH SCH (14:22)
--- NOTE | 2016-08-05 14:37 | PN ---
Progress Note (short form) - Note Progress Note: PULMONARY SLIGHT SUBJECTIVE IMPROVEMENT OOB TO CHAIR/PEAK FLOW 260 L/M VSS/ANICTERIC B/L WHEEZE ANTERIOR/POSTERIOR MODERATE S1S2 BS+ SOFT OBESE LESS LOWER EXT DEPENDANT EDEMA LABS/MEDS/NOTES/IMAGING REVIEWED ACUTE EXACERBATION ASTHMA SLOW RESOLUTION SUPER MORBID OBESITY LIKELY OSAS/OHS HIV CONTINUE CURRENT TREATMENT HOPE TO REDUCE STEROIDS SOON MONITOR DAILY PEAK FLOW MUCOMYST IS HELPING NIPPV DEVENDRA MASON MD
[2016-08-05] MEDS: ATORVASTATIN CA 20 MG TABLET (FP) PO SCH (23:00)
[2016-08-05] MEDS: MONTELUKAST NA 10 MG TABLET PO SCH (23:00)
[2016-08-06] MEDS: METOCLOPRAMIDE HCL 10 MG TABLET (FP) PO SCH ×3 (06:45→17:30)
[2016-08-06] MEDS: INSULIN SLIDING SCALE (NOVOLOG) 1 VIAL SQ SCH ×4 (06:47→21:59)
[2016-08-06] MEDS: ACETAMINOPHEN 325 MG TABLET (FP) PO PRN (07:00)
[2016-08-06 07:27] LABS: MCH 24.7 pg (25.7-33.7); MCHC 31.3 g/dl (32.0-36.0); MEAN PLT VOLUME 7.7 fl (7.5-11.1); PLATELET COUNT 274 K/MM3 (134-434); RDW 22.8 % (11.6-15.6); WHITE BLOOD COUNT 10.6 K/mm3 (4.0-10.0)
[2016-08-06] MEDS ORDERED: PT OWN MED DRAWER 7, Y5N ONE ×2 (10:02→21:38)
[2016-08-06] MEDS: PANTOPRAZOLE 40 MG TABLET (FP) PO SCH ×2 (10:36→21:48)
[2016-08-06] MEDS: amLODIPine BESYLATE 10 MG TABLET (FP) PO SCH (10:36)
[2016-08-06] MEDS: SULFAMETHOXAZOLE/TRIMETHOPRIM 800MG/160MG D.S. TABLET PO SCH (10:36)
[2016-08-06] MEDS: GENVOYA PO SCH (10:37)
[2016-08-06] MEDS: OMEGA-3 ACID ETHYL ESTERS (FATTY-ACIDS) 1 GM CAPSULE (FP) PO SCH ×2 (10:37→22:03)
[2016-08-06] MEDS: CLOTRIMAZOLE 1% CREAM 15 GM TUBE TP SCH ×2 (10:38→21:46)
[2016-08-06] MEDS: MUPIROCIN CA 2% TOPICAL CREAM 15 GM TUBE TP SCH ×2 (10:39→21:46)
[2016-08-06] MEDS: HYDROCORTISONE 2.5% TOPICAL CREAM 30 GM TUBE TP SCH (10:39)
[2016-08-06] MEDS: methylPREDNISolone NA SUCC 40 MG/1 ML VIAL IVPB SCH ×2 (10:39→21:48)
[2016-08-06] MEDS: TIOTROPIUM BROMIDE 18 MCG/INH (DEVICE W/ 5 CAPSULES) IH SCH (10:40)
[2016-08-06] MEDS: BUDESONIDE/FORMETEROL FUMARATE 160/4.5 mcg INHALER IH SCH ×2 (10:41→21:48)
[2016-08-06] MEDS: ZINC OXIDE 20% TOPICAL OINTMENT 30 GM TUBE TP SCH ×2 (10:42→21:50)
[2016-08-06] MEDS: ALBUTEROL SO4 0.083% IH SOL 2.5 MG/3 ML VIAL.NEB. NEB SCH ×2 (11:35→22:35)
[2016-08-06] MEDS: ACETYLCYSTEINE 20% 200MG/ML 4 ML VIAL *FOR ORAL / INH USE ONLY NEB SCH ×2 (11:35→22:35)
--- NOTE | 2016-08-06 11:43 | PN ---
Progress Note (short form) - Note Progress Note: PULMONARY SLIGHT SUBJECTIVE IMPROVEMENT OOB TO CHAIR/ VSS/ANICTERIC B/L WHEEZE ANTERIOR/POSTERIOR MODERATE S1S2 BS+ SOFT OBESE LESS LOWER EXT DEPENDANT EDEMA LABS/MEDS/NOTES/IMAGING REVIEWED ACUTE EXACERBATION ASTHMA SLOW RESOLUTION SUPER MORBID OBESITY LIKELY OSAS/OHS HIV CONTINUE CURRENT TREATMENT HAVE REDUCED STEROIDS TO 30MG BID MONITOR DAILY PEAK FLOW MUCOMYST IS HELPING NIPPV DEVENDRA MASON MD
--- NOTE | 2016-08-06 14:49 | PN ---
Progress Note (short form) - Note Progress Note: Subjective: improved breathing . no cp . no SEGURA . Objective: Vital Signs: Last Vital Signs Temp Pulse Resp BP Pulse Ox 97.1 F L 98 H 20 135/78 98 08/06/16 10:00 08/06/16 11:35 08/06/16 10:00 08/06/16 10:00 08/06/16 11:35 Labs: Laboratory Results - last 24 hr 08/05/16 08/05/16 08/06/16 16:47 23:07 06:15 WBC 10.6 H RBC 5.17 Hgb 12.8 Hct 40.9 MCV 79.0 L MCHC 31.3 L RDW 22.8 H D Plt Count 274 MPV 7.7 POC Glucometer 250 184 Lactic Acid 08/06/16 08/06/16 08/06/16 06:15 06:46 11:05 WBC RBC Hgb Hct MCV MCHC RDW Plt Count MPV POC Glucometer 200 180 Lactic Acid 6.559 H* PE : Pt seen breathing comfortably when entered the room, but when she saw MD started breathing in labor and started wheezing CV: RRR, no MRG Lungs: improved air entry . minimal wheezing Ext: no edema. ASSESSMENT AND PLAN: 46 y/o lady with h/o Asthma, HIV, anemia who presented with SOB and wheezing , Abd pain N/V and rectal bleed . She was found to have Asthma exacerbation 1- Asthma exacerbation : lung exam improved . suspect pt has secondary gain from staying in hospital - cont Albuterol Nebs QID, and PRN - cont Advair and spiriva - check Peak flow daily - agree with decreasing steroids to 30 BID - cont CPAP 2- New onset DM: - SSI now - Oral medications at dc ( not metformin) 3-Lactic acidosis: Type B. occasional monitoring of lactic acid . hopefully after decreasing Alb Nebs it will decrease 4- GI bleed: cont to have minimal rectal bleed . stable HB - EGD and colono as out pt 5- HIV : cont Genvoya 6- fungal rash : cont rina oxide and anti-fungals HLOC will Likely DC tomorrow . Pt is aware Visit type - Emergency Visit Emergency Visit: Yes ED Registration Date: 07/21/16 Care time: The patient presented to the Emergency Department on the above date and was hospitalized for further evaluation of their emergent condition. - New Patient This patient is new to me today: No - Critical Care Critical Care patient: No
[2016-08-06] MEDS: MONTELUKAST NA 10 MG TABLET PO SCH (21:48)
[2016-08-06] MEDS: ATORVASTATIN CA 20 MG TABLET (FP) PO SCH (21:48)
[2016-08-06] MEDS: BENZOCAINE/MENTH/CETYLPYRD CL 1 EACH LOZENGE MM PRN (21:50)
[2016-08-07] MEDS: INSULIN SLIDING SCALE (NOVOLOG) 1 VIAL SQ SCH ×2 (06:18→11:07)
[2016-08-07] MEDS: METOCLOPRAMIDE HCL 10 MG TABLET (FP) PO SCH ×2 (06:18→11:22)
[2016-08-07] MEDS ORDERED: PT OWN MED DRAWER 7, Y5N ONE ×2 (06:46→11:37)
[2016-08-07] MEDS: PANTOPRAZOLE 40 MG TABLET (FP) PO SCH (10:13)
[2016-08-07] MEDS: methylPREDNISolone NA SUCC 40 MG/1 ML VIAL IVPB SCH ×2 (10:13→10:22)
[2016-08-07] MEDS: SULFAMETHOXAZOLE/TRIMETHOPRIM 800MG/160MG D.S. TABLET PO SCH (10:13)
[2016-08-07] MEDS: amLODIPine BESYLATE 10 MG TABLET (FP) PO SCH (10:13)
[2016-08-07] MEDS: TIOTROPIUM BROMIDE 18 MCG/INH (DEVICE W/ 5 CAPSULES) IH SCH (10:14)
[2016-08-07] MEDS: BUDESONIDE/FORMETEROL FUMARATE 160/4.5 mcg INHALER IH SCH (10:14)
[2016-08-07] MEDS: GENVOYA PO SCH (10:15)
[2016-08-07] MEDS: CLOTRIMAZOLE 1% CREAM 15 GM TUBE TP SCH (10:29)
[2016-08-07] MEDS: MUPIROCIN CA 2% TOPICAL CREAM 15 GM TUBE TP SCH (10:30)
[2016-08-07] MEDS: HYDROCORTISONE 2.5% TOPICAL CREAM 30 GM TUBE TP SCH (10:31)
[2016-08-07] MEDS: ZINC OXIDE 20% TOPICAL OINTMENT 30 GM TUBE TP SCH (10:31)
[2016-08-07] MEDS: OMEGA-3 ACID ETHYL ESTERS (FATTY-ACIDS) 1 GM CAPSULE (FP) PO SCH ×2 (10:31→14:47)
[2016-08-07] MEDS: ACETYLCYSTEINE 20% 200MG/ML 4 ML VIAL *FOR ORAL / INH USE ONLY NEB SCH (10:50)
[2016-08-07] MEDS: ALBUTEROL SO4 0.083% IH SOL 2.5 MG/3 ML VIAL.NEB. NEB SCH (10:50)
[2016-08-07 14:51] VITALS: BP 145/75; PULSE 93; TEMP 98.2
--- NOTE | 2016-08-07 14:54 | PN ---
Teaching Attending Note Name of Resident: Lida Pretty ATTENDING PHYSICIAN STATEMENT I saw and evaluated the patient. I reviewed the resident's note and discussed the case with the resident. I agree with the resident's findings and plan as documented. SUBJECTIVE: no fever or chills . no abd pain . breathing is better OBJECTIVE: NAD CV: RRR, no MRG Lungs: improved air entry . minimal wheezing Ext: no edema. ASSESSMENT AND PLAN: 46 y/o lady with h/o Asthma, HIV, anemia who presented with SOB and wheezing , Abd pain N/V and rectal bleed . She was found to have Asthma exacerbation 1- Asthma exacerbation : significantly improved . will dc home on steroid taper , inhalers, Nebs , amd to continue her CPAP machine at night f/u with Dr. Carrion 2- New onset DM: will dc home on januvia 100 mg daily as metformin is contraindicated 3- Type B Lactic acidosis: blood work as out pt 4- GI bleed: cont to have minimal rectal bleed . stable HB - EGD and colono as out pt. follow with Dr. jules 5- HIV : cont Genvoya 6- fungal rash : cont rina oxide and anti-fungals dc home f/u with PCP , Pulm , GI, and ID for HIV
--- NOTE | 2016-08-07 15:12 | DS ---
Physical Exam: SUBJECTIVE: Patient seen and examined Patient resting in bed, NAD. afebrile and hemodynamically stable. Breathing is improved. Pre post exercise O2 in mid 90's on RA. denies f/c, diarrhea. + blood streaked BM. Peak flow 230 OBJECTIVE: Vital Signs Period Temp Pulse Resp BP Sys/So Pulse Ox Last 24 Hr 98.1 F-98.2 F 86-103 18-24 122-145/66-75 97-98 PHYSICAL EXAM GENERAL: Awake, alert, and fully oriented nad HEAD: Normal with no signs of trauma. EYES: extraocular movements intact, sclera anicteric, conjunctiva clear. No lid lag. EARS, NOSE, THROAT: Moist mucous membranes. NECK: submental and cervical lymphadenopathy, acanthosis nigricans LUNGS: slightly restricted air movement, mild wheezes HEART: Regular rate and rhythm, normal S1 and S2 ABDOMEN: Soft, diffusely tender, not distended, normoactive bowel sounds, no guarding, no rebound, no masses. No hepatomegaly or splenomegaly. LOWER EXTREMITIES: warm, well-perfused. No calf tenderness. trace edema. NEUROLOGICAL: Normal speech. Gait not observed. PSYCHIATRIC: Cooperative. Good eye contact. Appropriate mood and affect. SKIN: Warm, dry LABS Laboratory Results - last 24 hr 08/06/16 08/06/16 08/07/16 16:57 21:58 05:38 POC Glucometer 154 241 183 08/07/16 11:00 POC Glucometer 147 HOSPITAL COURSE: Date of Admission:07/21/16 Pateint is a 46 y/o F w/PMH of asthma (multiple hosp for exacerbations but never intubated), HIV (on genvoya), anemia and chronic epigastric pain, who presents to ER with SOB. She was recently discharged from [facility] where she was admitted for acute asthma exacerbation (discharged 07/17/16 w/medrol dose vero). She reported increased shortness of breath and wheezing as well as body numbness on Left side. She also reports 2 episodes of melena at home and many episodes of blood streaked stools that started a few days before. Patient was admitted for asthma exacerbation as well as UGIB + probable anal fissure. Her numbness was worked up as well. For asthma she was on high dose IV steroids for 3 weeks ans ws seen by Pulmonology. She received some chest PT and was on NC O2. Her respiratory status improved and she was sent home on a slow steroid taper (prednisone 60x 1 day, 40 x 3 days, 30 x 3 days, 20 x 3 days, 10 x 3 days) . She was prescribed singulair, symbicort, duoneb belle and albuterol prn. For GIB she was evaluated by GI and recommended endoscopy/colonoscopy when her resp status improves outpatient. Sh had a normal CT abd/pelvis w and w/o contrast. She has no melena episodes but continued to have blood streaked stools. Her h/h remained stable. For body numbness, she was seen by neurology. She had a normal head CT and normal B12, folate, lead levels. 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 She was advised to f/u with neuro. She was diagnosed with HTN and started on norvasc 10. She was diagnosed with HLD/ high triglycerides (lipid panel: trig 425, cholest 217, ldl 125, hdl 63) and was started on lipitor, fish oil. She was also diagnosed with Persistent lactic acidosis of unknown cause. She as seen by ID and its likely type B lactic acidosis (average 4.5-6) not requiring abx. She was urged to get blood work to check CBC and lactic acid outpatient roxanna. For HIV she was started on bactrim ppx. Date of Discharge: 08/07/16 Minutes to complete discharge: 56 (na) Discharge Summary Reason For Visit: ASTHMA HIV Current Active Problems Asthma (Acute) Asthma (Acute) Asthma exacerbation (Acute) DVT prophylaxis (Acute) HIV (human immunodeficiency virus infection) (Acute) Numbness (Acute) Sleep apnea, obstructive (Acute) Condition: Improved - Instructions Diet, Activity, Other Instructions: You were in the hospital due to asthma exacerbation You were on a long course of IV steroids and now require a slow oral taper -Take prednisone 60 daily for 1 more day starting tomorrow, 40 daily for 3 days , 30 daily for 3 days, 20 daily for 3 days and 10 daily for 3 days. -Continue using Symbicort, duoneb every 4 hours, singulair daily and albiterol inhalier when you need extra treatment as often as every 4 hr. Please be joe that your breathing status will take a while to get back to baseline -Follow with Dr Bermeo in 1 week When your breathing s better, f/u with Dr Lawler to schedule an endoscopy ad colonoscopy to investigate the cause of your abdominal pain (probably acid reflux) and the rectal bleed (probably a fissure). Take protonix twice a day Follow up with Dr Vu for HIV management, continue taking genvoya and bactrim daily. follow with Dr. Durand for your numbness Continue using bacitracin cream on genital sore and lotrimin cream under abdomen follow up with primary care doctor n 1 week -we started you on Norvasc 10 mg daily for high blood pressure, on lipitor and fish oil for high cholesterol and triglycerides. -Please stop taking metformin and start taking jenuvia 100 daily. Referrals: Jeremias Vu MD [Staff Physician] - 2 Weeks Joshua Bermeo MD [Staff Physician] - 1 Week Dick Durand MD [Staff Physician] - 2 Weeks Carla Jiménez MD [Primary Care Provider] - 1 Week Saurabh Lawler MD [Staff Physician] - 2 Weeks Disposition: HOME - Home Medications Comprehensive Discharge Medication List: Ambulatory Orders Elviteg/Crystal/Emtric/Tenofo Ala [Genvoya Tablet] 1 each PO DAILY 02/15/16 Budesonide/Formeterol Fumarate [SYMBICORT 160/4.5mcg -] 2 inh PO BID 07/26/16 Albuterol 0.083% Nebulizer Rach [Ventolin 0.083% Nebulizer Soln -] 1 amp NEB Q4H PRN #3 amp 08/07/16 Albuterol 2.5/Ipratropium 0.5 [Duoneb -] 1 amp NEB Q4H #3 amp 08/07/16 Amlodipine Besylate [Norvasc -] 10 mg PO DAILY #30 tablet 08/07/16 Atorvastatin Ca [Lipitor] 20 mg PO HS #30 tablet 08/07/16 Clotrimazole [Lotrimin -] 1 applic TP BID #1 tube 08/07/16 Cod Liver Oil/Zinc Oxide [Desitin Diaper Rash Oint -] 1 applic TP ASDIR PRN #30 tube 08/07/16 Montelukast Na [Singulair -] 10 mg PO HS #30 tablet 08/07/16 Mupirocin Cream [Bactroban 2% Cream -] 1 applic TP BID #1 tube 08/07/16 Pantoprazole Sodium [Protonix -] 40 mg PO BID #60 tab 08/07/16 Prednisone 10 mg PO DAILY #36 tablet 08/07/16 Sitagliptin Phosphate [Januvia -] 100 mg PO DAILY@0700 #30 ud 08/07/16 Sulfamethoxazole/Trimethoprim [Bactrim DS -] 1 each PO DAILY #30 tablet This patient is new to me today: No Emergency Visit: Yes ED Registration Date: 07/21/16 Care time: The patient presented to the Emergency Department on the above date and was hospitalized for further evaluation of their emergent condition. Critical Care patient: No - Discharge Referral Referred to [facility] Med P.C.: No
== END 2016-08-07 16:29 | disposition home or self-care (01) | DRG 141 ==
LOC: JER 00:36 → JERBED 01:39 → UNDOADMIN 01:42 → J5S 03:54
PROVIDERS: ADMIT Internal Medicine; ATTEND Internal Medicine
PROC: 5A09357 Assistance with Respiratory Ventilation, Less than 24 Consecutive Hours, Continuous Positive Airway Pressure (ICD-10-PCS; principal; 2016-08-07)
DX: J45.901 Unspecified asthma with (acute) exacerbation (principal); Z21 Asymptomatic human immunodeficiency virus [HIV] infection status; R20.0 Anesthesia of skin; G47.33 Obstructive sleep apnea (adult) (pediatric); I10 Essential (primary) hypertension; E78.5 Hyperlipidemia, unspecified; D64.9 Anemia, unspecified; E87.2 Acidosis; K92.2 Gastrointestinal hemorrhage, unspecified; E66.01 Morbid (severe) obesity due to excess calories; Z68.43 Body mass index [BMI] 50.0-59.9, adult; K52.9 Noninfective gastroenteritis and colitis, unspecified; E11.9 Type 2 diabetes mellitus without complications; D72.829 Elevated white blood cell count, unspecified; N17.9 Acute kidney failure, unspecified; R07.89 Other chest pain
CPT/HCPCS: 36415; 36600; 70450-TC; 71010-TC; 71020-TC; 71270-TC; 74170-TC; 80048; 80053; 80061; 81003; 81015; 82010; 82150; 82272; 82550; 82607; 82746; 82803; 83036; 83605; 83655; 83690; 83721; 83735; 84100; 84443; 84484; 84703; 85025; 85027; 85610; 85651; 86359; 86360; 87040; 87045; 87046; 87070; 87086; 87205; 87254; 87324; 87338; 87449; 87804; 93005; 93010; 94010; 94150; 94640; 94660; 94761; 99282-25; J1644

== ENCOUNTER 2017-02-20 09:34 | Day surgery (SDC) | payer OTHER ==
[2017-02-19 14:42] VITALS: BMI 61.6
[2017-02-20] MEDS ORDERED: HYDROCORTISONE SOD SUCCINATE 2 ML ONE (10:19)
[2017-02-20] MEDS ORDERED: LIDOCAINE HCL/PF 2% SDV 5ML VIAL ONE (11:00)
[2017-02-20] MEDS ORDERED: PROPOFOL 20 ML ONE ×2 (11:00)
[2017-02-20] MEDS ORDERED: HYDROCORTISONE SOD SUCCINATE 100 MG/2 ML VIAL IVPB ONE (11:15)
[2017-02-20 11:58] VITALS: TEMP 97.8
[2017-02-20 12:45] VITALS: BP 110/55; PULSE 87
== END 2017-02-20 12:40 | disposition home or self-care (01) ==
LOC: JASU-ENDO 09:34 → MERGE 11:00 → JASU-ENDO 12:40
PROVIDERS: ATTEND Internal Medicine Gastroenterology
PROC: 0DBM8ZX Excision of Descending Colon, Via Natural or Artificial Opening Endoscopic, Diagnostic (ICD-10-PCS; principal; 2017-02-20 11:00)
DX: Z12.11 Encounter for screening for malignant neoplasm of colon (principal); Z80.0 Family history of malignant neoplasm of digestive organs; D12.4 Benign neoplasm of descending colon
CPT/HCPCS: 84703; 88305-TC

== ENCOUNTER 2017-09-27 07:08 | Day surgery (SDC) | payer OTHER ==
[2017-09-27] MEDS ORDERED: PROPOFOL 20 ML ONE ×2 (07:49)
[2017-09-27 08:02] VITALS: BMI 63.1
[2017-09-27] MEDS ORDERED: LIDOCAINE VISCOUS 2% ORAL/TOP 20 ML UNIT-DOSE CUP ONE (08:19)
[2017-09-27 09:06] VITALS: TEMP 98
[2017-09-27 09:25] VITALS: PULSE 71
[2017-09-27 15:29] VITALS: BP 112/56
--- NOTE | 2017-09-28 15:47 | PATH ---
Surgical Pathology Report Patient Name: FILOMENA ZARAGOZA [facility]. Rec. #: [id number] /Age/Gender: 1970 (Age: 47) / F Account: [id number] Location: [facility]-ENDOSCOPY Taken: 09/27/2017 Received: 09/27/2017 Reported: 09/28/2017 Physicians: Saurabh Lawler M.D. Specimen(s) Received A: BX BODY B: IRREGULAR Z- LINE Clinical History Abdominal pain, anemia Postoperative diagnosis: Nodular gastritis Final Diagnosis A. BODY, BIOPSY: GASTRIC MUCOSA WITH MILD ACTIVE GASTRITIS. IMMUNOSTAIN IS POSITIVE FOR H. PYLORI ORGANISMS. C. IRREGULAR Z-LINE, BIOPSY: GASTROESOPHAGEAL JUNCTIONAL MUCOSA WITH ACUTE AND CHRONIC INFLAMMATION, IN A BACKGROUND OF REFLUX-TYPE CHANGES. NEGATIVE FOR INTESTINAL METAPLASIA. Electronically Signed Anne Marie Goodrich M.D. Gross Description A. Received in formalin, labeled "biopsy body" is a munoz, irregular portion of soft tissue measuring 0.6 cm. in greatest dimension. The specimen is submitted in toto in one cassette. B. Received in formalin, labeled "biopsy irregular Z line" is a munoz, irregular portion of soft tissue measuring 0.3 cm. in greatest dimension. The specimen is submitted in toto in one cassette. 09/27/2017 saudi09/27/2017
== END 2017-09-27 10:20 | disposition home or self-care (01) ==
LOC: JASU-ENDO 07:08
PROVIDERS: ATTEND Internal Medicine Gastroenterology
PROC: 0DB68ZX Excision of Stomach, Via Natural or Artificial Opening Endoscopic, Diagnostic (ICD-10-PCS; principal; 2017-09-27 08:00)
DX: K29.70 Gastritis, unspecified, without bleeding (principal); B96.81 Helicobacter pylori [H. pylori] as the cause of diseases classified elsewhere; K21.0 Gastro-esophageal reflux disease with esophagitis; D64.9 Anemia, unspecified
CPT/HCPCS: 84703; 88305-TC; 88342-TC

== ENCOUNTER 2017-11-10 01:00 | Inpatient (IN) | payer OTHER ==
[2017-11-10] MEDS ORDERED: ALBUTEROL SO4 2.5/IPRATROPIUM 0.5 INH SOL 3 ML VIAL.NEB. NEB ONE ×3 (01:08→01:50)
[2017-11-10] MEDS ORDERED: DEXAMETHASONE SOD PHOSPHATE 10 MG/1 ML VIAL ONE (01:14)
--- NOTE | 2017-11-10 01:15 | PDOC ---
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 She had an additional onset of chest heaviness ("elephant on my chest"), diaphoresis, and nausea at that time. She was not able to control her symptoms with home medications and thus called for EMS to bring her into the ED. She notes 3 days of worsening congestion, sore throat, and cough productive of phlegm and believes she has been getting an infection. She denies any fever, chills, vomiting, diarrhea, constipation, headache, lightheadedness, leg swelling, or other symptoms recently. Past History - Past Medical History Allergies/Adverse Reactions: Allergies Allergy/AdvReac Type Severity Reaction Status Date / Time omeprazole [From Prilosec] Allergy Mild Hives Verified 11/10/17 01:06 omeprazole magnesium Allergy Mild Hives Verified 11/10/17 01:06 [From Prilosec] Home Medications: Ambulatory Orders Albuterol 0.083% Nebulizer Rach [Ventolin 0.083% Nebulizer Soln -] 1 amp NEB Q4H PRN #3 amp 08/07/16 Elviteg/Cob/Emtri/Tenof Alafen [Genvoya (Non-Formulary)] 1 tab PO DAILY Budesonide/Formeterol Fumarate [SYMBICORT 160/4.5mcg -] 2 inh PO BID 02/20/17 Amoxicillin 500mg Capsule - 1,000 mg PO BID 11/10/17 Clarithromycin 500 mg PO BID 11/10/17 Pantoprazole Sodium 40 mg PO DAILY 11/10/17 Anemia: Yes Asthma: Yes Cancer: No Cardiac Disorders: No CVA: No COPD: No CHF: No Dementia: No Diabetes: No GI Disorders: No Disorders: No HTN: No Hypercholesterolemia: No Liver Disease: No Seizures: No Thyroid Disease: No - Surgical History Abdominal Surgery: Yes Appendectomy: No Cardiac Surgery: No Cholecystectomy: No Lung Surgery: No Neurologic Surgery: No Orthopedic Surgery: No - Family Disease History Family Disease History: Diabetes: Father, Heart Disease: Father - Reproductive History (#): 6 Para: 5 Cervical CA: No Dysfunctional Uterine Bleeding: Yes Ectopic : No Endometrial CA: No Polycystic Ovaries: No Therapeutic (s) & number: No Tubal Ligation: No Spontaneous : 1 - Immunization History Immunization Up to Date: Yes - Suicide/Smoking/Psychosocial Hx Smoking History: Never smoked Have you smoked in the past 12 months: No Hx Alcohol Use: No Drug/Substance Use Hx: No Substance Use Type: None Hx Substance Use Treatment: No Respiratory Specific PMHX - Complaint Specific PMHX Bronchitis: Yes Review of Systems - Review of Systems Able to Perform ROS?: Yes Constitutional: Yes: Diaphoresis. No: Chills, Fever, Unexplained wgt Loss HEENTM: Yes: Nose Congestion, Throat Pain Respiratory: Yes: Cough, Shortness of Breath, Wheezing Cardiac (ROS): Yes: Chest Pain. No: Edema, Palpitations, Syncope ABD/GI: Yes: Nausea. No: Constipated, Diarrhea, Vomiting : No: Burning, Dysuria Musculoskeletal: No: Back Pain, Neck Pain Integumentary: No: Bruising, Rash Neurological: No: Headache, Numbness, Tingling, Weakness, Dizziness Endocrine: No: Unexplained Weight Gain, Unexplained Weight Loss *Physical Exam - Physical Exam General Appearance: Yes: Nourished, Obese (morbidly), Other (awake, alert, oriented, pleasant adult female, on nebulizer tx, speaking3-4 word sentences, audible wheezing across the room). No: Apparent Distress HEENT: positive: EOMI, NICOLE, Normal Voice, Hearing Grossly Normal. negative: Scleral Icterus (R), Scleral Icterus (L), Nasal Congestion Neck: positive: Trachea midline, Supple. negative: Tender, Rigid Respiratory/Chest: positive: Respiratory Distress (mild), Labored Respiration, Decreased Breath Sounds, Wheezing, Other (prolonged expiratory phase). negative : Crackles, Rhonchi, Stridor Cardiovascular: positive: Regular Rhythm, Regular Rate, S1, S2. negative: Edema , JVD, Murmur Gastrointestinal/Abdominal: positive: Normal Bowel Sounds, Soft. negative: Tender, Organomegaly, Pulsatile Mass, Guarding Musculoskeletal: positive: Normal Inspection. negative: Decreased Range of Motion, Vertebral Tenderness Extremity: positive: Normal Capillary Refill, Normal Inspection, Normal Range of Motion. negative: Tender, Cyanosis Integumentary: positive: Normal Color, Dry, Warm. negative: Erythema, Rash, Bruising Neurologic: positive: department mgr II-XII NML intact (grossly), Fully Oriented, Alert, Normal Mood/Affect, Normal Response, Motor Strength 5/5 Heart Score/ECG Review - History History: Slightly suspicious - Electrocardiogram EKG: Normal - Age Age: 45-65 - Risk Factors Risk Factors Heart Score: Yes Positive family hx of cardiac disease, Yes Hx Obesity Based on the list above the patient has:: 1-2 risk factors ED Treatment Course - LABORATORY CBC & Chemistry Diagram: 11/10/17 06:21 11/10/17 06:21 - RADIOLOGY Radiology Studies Ordered: Category Date Time Status CXRPORT [CHEST X-RAY PORTABLE*] [RAD] Stat Radiology 11/10/17 01:09 Ordered Medical Decision Making - Medical Decision Making 11/10/17 01:10 Pt with h/o asthma p/w respiratory distress like their prior asthma exacerbation. Has been admitted to ICU for her asthma, also had to stay for over a month in hospital for prior asthma exacerbation. No reported h/o asthma resulting in intubation, PTX, seizure, LOC, hypercapnia, acidosis, etc. Initial Vital Signs Temp Pulse Resp BP Pulse Ox 98.2 F 103 H 24 114/64 92 L 11/10/17 01:13 11/10/17 01:13 11/10/17 01:13 11/10/17 01:13 11/10/17 01:13 Exam: Results as noted in Physical Exam section. DDX IBNLT: asthma exacerbation, COPD, bronchitis, viral URI, influenza, PNA, PTX , CHF, ACS, pericarditis W/U ordered: CBCD CMP Mg Phos CXR EKG TX ordered: Santana (patient rec'd Decadron in EMS) EKG: Reviewed; results as noted in ECG Review section. CXR: Possible RLL consolidation. Laboratory Tests 11/10/17 11/10/17 11/10/17 01:00 01:00 01:00 WBC 11.4 H RBC 5.10 Hgb 10.6 L Hct 34.9 MCV 68.4 L MCH 20.8 L D MCHC 30.4 L RDW 19.2 H Plt Count 345 D MPV 7.7 Absolute Neuts (auto) 6.9 Neutrophils % 61.1 D Lymphocytes % 27.0 D Monocytes % 9.4 Eosinophils % 1.5 D Basophils % 1.0 D Nucleated RBC % 0 Hypochromia 2+ Anisocytosis 1+ Microcytosis 1+ VBG pH 7.38 POC VBG pCO2 41.9 POC VBG pO2 73.8 H Mixed VBG HCO3 24.4 Sodium 139 Potassium 4.5 Chloride 105 Carbon Dioxide 22 Anion Gap 12 BUN 8 Creatinine 1.0 Creat Clearance w eGFR 59.96 Random Glucose 155 H Calcium 8.4 L Phosphorus 2.7 Magnesium 2.0 Total Bilirubin 0.3 AST 29 ALT 22 Alkaline Phosphatase 67 Creatine Kinase Creatine Kinase Index CK-MB (CK-2) Troponin I B-Natriuretic Peptide Total Protein 7.1 Albumin 3.3 L 11/10/17 01:00 WBC RBC Hgb Hct MCV MCH MCHC RDW Plt Count MPV Absolute Neuts (auto) Neutrophils % Lymphocytes % Monocytes % Eosinophils % Basophils % Nucleated RBC % Hypochromia Anisocytosis Microcytosis VBG pH POC VBG pCO2 POC VBG pO2 Mixed VBG HCO3 Sodium Potassium Chloride Carbon Dioxide Anion Gap BUN Creatinine Creat Clearance w eGFR Random Glucose Calcium Phosphorus Magnesium Total Bilirubin AST ALT Alkaline Phosphatase Creatine Kinase 199 H Creatine Kinase Index 0.4 CK-MB (CK-2) 0.92 Troponin I < 0.02 B-Natriuretic Peptide 92.57 Total Protein Albumin 11/10/17 01:48 Reassessment: Patient remains very wheezy, speaking in 4-5 word sentences, prolonged expiratory phase. Ceftriaxone and azithromycin ordered for possible RLL PNA. Patient's care is endorsed to Dr. Mejia at the end of my shift. *DC/Admit/Observation/Transfer Diagnosis at time of Disposition: Asthma exacerbation Qualifiers: Asthma severity: unspecified severity Asthma persistence: unspecified Qualified Code(s): J45.901 - Unspecified asthma with (acute) exacerbation Obesity Qualifiers: Obesity type: unspecified obesity type Obesity classification: adult class 3 ( BMI >= 40) Serious obesity comorbidity presence: unspecified whether serious comorbidity present Body mass index: BMI 60.0-69.9 Qualified Code(s): E66.9 - Obesity, unspecified Pneumonia Qualifiers: Pneumonia type: due to unspecified organism Laterality: right Lung location: lower lobe of lung Qualified Code(s): J18.1 - Lobar pneumonia, unspecified organism Chest pain Qualifiers: Chest pain type: unspecified Qualified Code(s): R07.9 - Chest pain, unspecified - Referrals - Patient Instructions - Post Discharge Activity
--- NOTE | 2017-11-10 01:37 | PDOC ---
Attending Attestation - Resident Resident Name: Isha Shaw - ED Attending Attestation I have performed the following: I have examined & evaluated the patient, The case was reviewed & discussed with the resident, I agree w/resident's findings & plan - HPI HPI: 11/10/17 01:34 47-year-old female with history of HIV, severe asthma with several admissions in the past including the ICU but never intubated, morbid obesity presents to the emergency department with acute asthma exacerbation/chest congestion/chest pressure this evening in the setting of 2 days of URI symptoms with worsening asthma exacerbations despite increasing frequency of home nebulizers. No measured fevers or chills. - Physicial Exam PE: 11/10/17 01:35 Tachycardia, O2 sat on room air is 92%, improves to 100% on 4 L Morbidly obese, but alert and speaking, tachypnea sustained 3-4 words at a time Heart is regular tachycardia Lungs sounds are symmetric with inspiratory and expiratory wheezing, no focally decreased breath sounds, prolonged expiration. - Critical Care Time Total Critical Care Time: 55 Critical Care Statement: The care of this patient involved high complexity decision making to prevent further life threatening deterioration of the patient 's condition and/or to evaluate & treat vital organ system(s) failure or risk of failure. - Medical Decision Making 11/10/17 01:36 47-year-old female with history of severe asthma exacerbations presents with same progressive over the last 48 hours. Here alert but with acute respiratory distress and hypoxia, also with chest pain most likely related to her asthma, rule out ACS. Stat nebulizers, was given Decadron by EMS, consider magnesium EKG, chest x-ray Continue monitoring closely, likely admission. Heart Score/ECG Review #1 ECG reviewed & interpreted by me at: 01:40 General ECG Interpretation: Sinus Rhythm, Normal Rate (102), Normal Intervals ( qtc 497), No acute ischemic changes (TWI AVF)
[2017-11-10 01:38] LABS: VENOUS PC02 41.9 mmHg (38-52); VENOUS PH 7.38 (7.32-7.42); VENOUS PO2 73.8 mmHg (28-48)
[2017-11-10] MEDS ORDERED: CEFTRIAXONE 1,000 MG in DEXTROSE 5%-WATER - 50 ML IVPB ONE (01:53)
[2017-11-10] MEDS ORDERED: AZITHROMYCIN IVPB 500 MG in DEXTROSE 5%-WATER - 250 ML IVPB ONE (01:53)
[2017-11-10 02:04] LABS: ALBUMIN 3.3 g/dl (3.4-5.0); ANION GAP 12 (8-16); BILIRUBIN,TOTAL 0.3 mg/dL (0.2-1.0); BLOOD UREA NITROGEN 8 mg/dL (7-18); CALCIUM 8.4 mg/dL (8.5-10.1); CHLORIDE 105 mmol/L (98-107); CO2 22 mmol/L (21-32); EOS % 1.5 % (0-4.5); GLUCOSE,RANDOM 155 mg/dL (74-106); HEMATOCRIT 34.9 % (32.4-45.2); HEMOGLOBIN 10.6 GM/dL (10.7-15.3); MCH 20.8 pg (25.7-33.7); MCHC 30.4 g/dl (32.0-36.0); MEAN CELL VOLUME 68.4 fl (80-96); MEAN PLT VOLUME 7.7 fl (7.5-11.1); MONO % 9.4 % (3.8-10.2); NEUT % 61.1 % (42.8-82.8); PHOSPHOROUS 2.7 mg/dL (2.5-4.9); PLATELET COUNT 345 K/MM3 (134-434); POTASSIUM 4.5 mmol/L (3.5-5.1); RDW 19.2 % (11.6-15.6); SGOT/AST 29 U/L (15-37); SGPT/ALT 22 U/L (12-78); SODIUM 139 mmol/L (136-145); TOT PROT 7.1 g/dl (6.4-8.2); WHITE BLOOD COUNT 11.4 K/mm3 (4.0-10.0)
[2017-11-10 02:05] LABS: ALK PHOS 67 U/L (45-117)
[2017-11-10 02:07] LABS: N-TERMINAL BNP 92.57 pg/ml (5-125)
[2017-11-10 02:08] LABS: ADD RBC MORPHOLOGY YES
--- NOTE | 2017-11-10 02:16 | PDOC ---
*Physical Exam - Vital Signs Last Vital Signs Temp Pulse Resp BP Pulse Ox 98.2 F 103 H 24 114/64 100 11/10/17 01:13 11/10/17 01:13 11/10/17 01:13 11/10/17 01:13 11/10/17 01:31 ED Treatment Course - LABORATORY CBC & Chemistry Diagram: 11/10/17 01:00 11/10/17 01:00 - ADDITIONAL ORDERS Additional order review: Laboratory Results 11/10/17 11/10/17 11/10/17 01:00 01:00 01:00 VBG pH 7.38 POC VBG pCO2 41.9 POC VBG pO2 73.8 H Mixed VBG HCO3 24.4 Sodium 139 Potassium 4.5 Chloride 105 Carbon Dioxide 22 Anion Gap 12 BUN 8 Creatinine 1.0 Creat Clearance w eGFR 59.96 Random Glucose 155 H Calcium 8.4 L Phosphorus 2.7 Magnesium 2.0 Total Bilirubin 0.3 AST 29 ALT 22 Alkaline Phosphatase 67 Creatine Kinase 199 H Troponin I < 0.02 B-Natriuretic Peptide 92.57 Total Protein 7.1 Albumin 3.3 L 11/10/17 01:00 RBC 5.10 MCV 68.4 L MCHC 30.4 L RDW 19.2 H MPV 7.7 Neutrophils % 61.1 D Lymphocytes % 27.0 D Monocytes % 9.4 Eosinophils % 1.5 D Basophils % 1.0 D - Medications Given in the ED: ED Medications Discontinued Medications Generic Name Dose Route Start Last Admin Trade Name Freq PRN Reason Stop Dose Admin Albuterol/Ipratropium 3 amp 11/10/17 01:08 11/10/17 01:20 Duoneb - NEB 11/10/17 01:09 3 amp ONCE ONE Administration Medical Decision Making - Medical Decision Making 11/10/17 02:[address] Landrum. 11/10/17 02:19 Ms. Meléndez is a 47 yo female w/ pmh of asthma (admitted many times to hospital / ICU but never intubated), HIV (on HAART, last CD4 >900), super morbid obesity who presents w/ 2 days of SOB and wheezing worsened before arrival. Patient reports chest heaviness, diaphoresis, and nausea. Also notes 3 days of congestion, sore throat, and productive cough. Patient given Mg, Duonebs, Solumedrol. RLL consolidation also noted on CXR. Patient given ceftriaxone and azithromycin. Admitting to telemetry *DC/Admit/Observation/Transfer Diagnosis at time of Disposition: Asthma exacerbation Qualifiers: Asthma severity: unspecified severity Asthma persistence: unspecified Qualified Code(s): J45.901 - Unspecified asthma with (acute) exacerbation Obesity Qualifiers: Obesity type: unspecified obesity type Obesity classification: adult class 3 ( BMI >= 40) Serious obesity comorbidity presence: unspecified whether serious comorbidity present Body mass index: BMI 60.0-69.9 Qualified Code(s): E66.9 - Obesity, unspecified Pneumonia Qualifiers: Pneumonia type: due to unspecified organism Laterality: right Lung location: lower lobe of lung Qualified Code(s): J18.1 - Lobar pneumonia, unspecified organism Chest pain Qualifiers: Chest pain type: unspecified Qualified Code(s): R07.9 - Chest pain, unspecified - Discharge Dispostion Decision to Admit order: Yes - Referrals - Patient Instructions - Post Discharge Activity
[2017-11-10] MEDS ORDERED: AZITHROMYCIN IVPB 250 ML IVPB ONE (02:21)
[2017-11-10] MEDS ORDERED: CEFTRIAXONE 1 GM/50 ML BAG ONE (02:21)
--- NOTE | 2017-11-10 04:12 | HP ---
CHIEF COMPLAINT:SOB x2 days PCP: Carla Licona HISTORY OF PRESENT ILLNESS: Patient is a 47y/o F with PMHx of recurrent asthma exacerbations and hospitalizations, (never intubated), DM, HIV (on genvoya), anemia and chronic epigastric pain, presenting to ER with worsening SOB at rest for past 2 days. Pt uses daily symbicort and used her nebulizer up to 8 times today with no relief. Noted greenish non bloody sputum about 2 days ago, with no fever. Last exacerbation was about a year ago. Pt reports recurrent exacerbations, with no known precipitators. Pt notes leg swelling and orthopnea. Pt denies dysuria, chest pain or change in bowel habit. Says she has been compliant on her HAART, last CD count about a year ago was in the 900s and she follows Dr Vu. ER course was notable for: (1) decadron, duonebs, oxygen- NC_2L, azithro/ceftriaxone (2) CXR- no acute pathol (no formal read) (3) EKG- Sinus [id number],NSTE/NSTD, [id number] Recent Travel: PAST MEDICAL HISTORY: Maternal aunt with asthma Mother with HTN, DM, HLD PAST SURGICAL HISTORY: C/Section Social History: Smoking:Denies Alcohol:Denies Drugs: Denies Family History: Allergies omeprazole [From Prilosec] Allergy (Mild, Verified 11/10/17 01:06) Hives omeprazole magnesium [From Prilosec] Allergy (Mild, Verified 11/10/17 01:06) Hives HOME MEDICATIONS: Home Medications Medication Instructions Recorded Albuterol 0.083% Nebulizer Rach 1 amp NEB Q4H PRN #3 amp 08/07/16 [Ventolin 0.083% Nebulizer Soln -] Elviteg/Cob/Emtri/Tenof Alafen 1 tab PO DAILY 02/19/17 [Genvoya (Non-Formulary)] Budesonide/Formeterol Fumarate 2 inh PO BID 02/20/17 [SYMBICORT 160/4.5mcg -] REVIEW OF SYSTEMS CONSTITUTIONAL: Absent: fever, chills, diaphoresis, generalized weakness, malaise, loss of appetite, weight change HEENT: Absent: rhinorrhea, nasal congestion, throat pain, throat swelling, difficulty swallowing, mouth swelling, ear pain, eye pain, visual changes CARDIOVASCULAR: Absent: chest pain, syncope, palpitations, irregular heart rate, lightheadedness , peripheral edema RESPIRATORY: Absent: cough, shortness of breath, dyspnea with exertion, orthopnea, wheezing, stridor, hemoptysis GASTROINTESTINAL: Absent: abdominal pain, abdominal distension, nausea, vomiting, diarrhea, constipation, melena, hematochezia GENITOURINARY: Absent: dysuria, frequency, urgency, hesitancy, hematuria, flank pain, genital pain MUSCULOSKELETAL: Absent: myalgia, arthralgia, joint swelling, back pain, neck pain SKIN: Absent: rash, itching, pallor HEMATOLOGIC/IMMUNOLOGIC: Absent: easy bleeding, easy bruising, lymphadenopathy, frequent infections ENDOCRINE: Absent: unexplained weight gain, unexplained weight loss, heat intolerance, cold intolerance NEUROLOGIC: Absent: headache, focal weakness or paresthesias, dizziness, unsteady gait, seizure, mental status changes, bladder or bowel incontinence PSYCHIATRIC: Absent: anxiety, depression, suicidal or homicidal ideation, hallucinations. PHYSICAL EXAMINATION Vital Signs - 24 hr 11/10/17 11/10/17 11/10/17 01:00 01:13 01:31 Temperature 98.2 F Pulse Rate 103 H Pulse Rate [ 88 Right Radial] Respiratory 18 24 Rate Blood Pressure 114/64 Blood Pressure 117/74 [Right Arm] O2 Sat by Pulse 100 92 L 100 Oximetry (%) GENERAL: Morbidy obese, Awake, alert, in mild respiratory distress (using accessory muscles)- on NC-2L, speaks in full sentences. HEAD: Normal with no signs of trauma. EYES: Pupils equal, round and reactive to light, EARS, NOSE, THROAT: Ears normal, nares patent, oropharynx clear without exudates. Moist mucous membranes. LUNGS: Scattered expiratory wheezes anteriorly/posteriorly HEART: Distant HS (body habitus), S1, S2, ABDOMEN: Obese, nontender, not distended, normoactive bowel sounds LOWER EXTREMITIES: Bilateral peripheral edema+ up to schumacher. NEUROLOGICAL: Cranial nerves II-XII intact. Normal speech. PSYCHIATRIC: Cooperative. Good eye contact. Appropriate mood and affect. SKIN: Warm, dry, normal turgor, no rashes or lesions noted, normal capillary refill. Laboratory Results - last 24 hr 07/14/18 07/14/18 07/14/18 01:00 01:00 01:00 WBC 11.4 H RBC 5.10 Hgb 10.6 L Hct 34.9 MCV 68.4 L MCH 20.8 L D MCHC 30.4 L RDW 19.2 H Plt Count 345 D MPV 7.7 Absolute Neuts (auto) 6.9 Neutrophils % 61.1 D Lymphocytes % 27.0 D Monocytes % 9.4 Eosinophils % 1.5 D Basophils % 1.0 D Nucleated RBC % 0 VBG pH 7.38 POC VBG pCO2 41.9 POC VBG pO2 73.8 H Mixed VBG HCO3 24.4 Sodium 139 Potassium 4.5 Chloride 105 Carbon Dioxide 22 Anion Gap 12 BUN 8 Creatinine 1.0 Creat Clearance w eGFR 59.96 Random Glucose 155 H Calcium 8.4 L Phosphorus 2.7 Magnesium 2.0 Total Bilirubin 0.3 AST 29 ALT 22 Alkaline Phosphatase 67 Creatine Kinase Creatine Kinase Index CK-MB (CK-2) Troponin I B-Natriuretic Peptide Total Protein 7.1 Albumin 3.3 L 11/10/17 01:00 WBC RBC Hgb Hct MCV MCH MCHC RDW Plt Count MPV Absolute Neuts (auto) Neutrophils % Lymphocytes % Monocytes % Eosinophils % Basophils % Nucleated RBC % VBG pH POC VBG pCO2 POC VBG pO2 Mixed VBG HCO3 Sodium Potassium Chloride Carbon Dioxide Anion Gap BUN Creatinine Creat Clearance w eGFR Random Glucose Calcium Phosphorus Magnesium Total Bilirubin AST ALT Alkaline Phosphatase Creatine Kinase 199 H Creatine Kinase Index 0.4 CK-MB (CK-2) 0.92 Troponin I < 0.02 B-Natriuretic Peptide 92.57 Total Protein Albumin ASSESSMENT/PLAN: Patient is a 47y/o F with PMHx of recurrent asthma exacerbations and hospitalizations, (never intubated), DM, HIV (on genvoya), anemia and chronic epigastric pain, presenting to ER with worsening SOB at rest for past 2 days Acute asthma exacerbation Solumed 40mg Q8H Duonebs Q4H Symbicort 2 puffs bid albuterol inhaler supplemental oxygen as needed to maintain oxygen saturation Telemetry Peak flow measurement For outpatient PFts Cont azithromycin HIV Cont genovya CD4 count viral load anemia ongoing anemia Monitor Epigastric pain Not currently tender DM ISS ACHS BGM ACHS HgbA1c Diabetic diet PPx Hep Sq 5000tid FEN No standing fluids Monitor lytes and replete as needed Diabetic/sodium restricted diet dispo; Tele Visit type - Emergency Visit Emergency Visit: Yes ED Registration Date: 11/10/17 Care time: The patient presented to the Emergency Department on the above date and was hospitalized for further evaluation of their emergent condition. - New Patient This patient is new to me today: Yes Date on this admission: 11/09/17 - Critical Care Critical Care patient: No Hospitalist Screening - Colonoscopy Questionnaire Colonoscopy Questionnaire: Colonoscopy Questionnaire - Patient: 50 - 75 years old and never had a screening colonoscopy: No History of colon or rectal polyps, or CA: Unknown History of IBD, Crohn's disease or UC: Unknown History of abdominal radiation therapy as a child: Unknown - Relative: 1 with colon or rectal CA, or polyps at age 60 or younger: Unknown Colon or rectal CA diagnosed at age 45 or younger: Unknown Multiple relatives with colon or rectal CA: Unknown - Outcome: Screening Result: Negative Screen
--- NOTE | 2017-11-10 04:27 | PN ---
Teaching Attending Note Name of Resident: Heather Jolly ATTENDING PHYSICIAN STATEMENT I saw and evaluated the patient. Chart, data, imaging reviewed. I reviewed the resident's note and discussed the case with the resident. I agree with the resident's findings and plan as documented. SUBJECTIVE: 47y/o F with PMHx of morbid obesity, recurrent asthma exacerbations and hospitalizations, (never intubated), HIV (on genvoya), anemia and chronic epigastric pain c/o shortness of breath and chest tightness for the last 2 days. She denies smoking or contact with second hand smoke. Denied any chest pain. Patient is ambulatory, can walk up stairs. OBJECTIVE: Last Vital Signs Temp Pulse Resp BP Pulse Ox 98.2 F 103 H 24 114/64 100 11/10/17 01:13 11/10/17 01:13 11/10/17 01:13 11/10/17 01:13 11/10/17 01:31 general- some resp distress, cannot speak in full sentences heent- atraumatic, normocephalic neck -supple cv-s2+s2+ tachy chest -diffuse wheezing appreciated in all lung sharp abdomen- morbidly obese, nontender ext -moves all ext Abnormal Lab Results 11/10/17 11/10/17 11/10/17 01:00 01:00 01:00 WBC 11.4 H Hgb 10.6 L MCV 68.4 L MCH 20.8 L D MCHC 30.4 L RDW 19.2 H POC VBG pO2 73.8 H Random Glucose 155 H Calcium 8.4 L Creatine Kinase Albumin 3.3 L 11/10/17 01:00 WBC Hgb MCV MCH MCHC RDW POC VBG pO2 Random Glucose Calcium Creatine Kinase 199 H Albumin ekg reviewed, sinus tachycardia, acute ischemic changes noted cxr -unchanged from old cxr ASSESSMENT AND PLAN: 47yo woman morbidly obese with acute asthma exacerbation -admit to telemetry -send one more troponin -respiratory watch -duonebs q4hrs -methylprednisone 40mg IV q8hrs -peak flow monitoring -supplement o2 -pulmonary consult -restart home dose of symbicort -lower ext duplex to r/o dvt -pulm function tests as an outpatient #HIV -restart Genvoya -T cell count -Viral load DVT ppx heparin sc
[2017-11-10] MEDS ORDERED: ALBUTEROL SO4 0.083% IH SOL 2.5 MG/3 ML VIAL.NEB. NEB PRN (05:05)
[2017-11-10 05:28] LABS: ANISOCYTOSIS 1+
[2017-11-10] MEDS: methylPREDNISolone NA SUCC 40 MG/1 ML VIAL IVPUSH SCH ×4 (05:39→20:53)
[2017-11-10] MEDS ORDERED: ALBUTEROL SO4 2.5/IPRATROPIUM 0.5 INH SOL 3 ML VIAL.NEB. NEB SCH (06:00)
[2017-11-10] MEDS: INSULIN SLIDING SCALE (NOVOLOG) 1 VIAL SQ SCH ×4 (07:10→21:46)
[2017-11-10 07:49] LABS: BASO % 0.2 % (0-2.0); HEMATOCRIT 34.9 % (32.4-45.2); HEMOGLOBIN 10.6 GM/dL (10.7-15.3); MCH 20.5 pg (25.7-33.7); MCHC 30.4 g/dl (32.0-36.0); MEAN CELL VOLUME 67.6 fl (80-96); MEAN PLT VOLUME 7.8 fl (7.5-11.1); MONO % 2.1 % (3.8-10.2); NEUT % 90.7 % (42.8-82.8); PLATELET COUNT 368 K/MM3 (134-434); RBC 5.17 M/mm3 (3.60-5.2); RDW 19.4 % (11.6-15.6)
[2017-11-10] MEDS: HEPARIN NA (PORCINE) 5,000 UNITS/ML 1ML VIAL SQ SCH ×3 (07:59→21:48)
[2017-11-10 08:23] LABS: WHITE BLOOD COUNT 12.5 K/mm3 (4.0-10.0)
[2017-11-10 09:38] LABS: ALBUMIN 3.6 g/dl (3.4-5.0); BILIRUBIN,TOTAL 0.4 mg/dL (0.2-1.0); BLOOD UREA NITROGEN 10 mg/dL (7-18); CALCIUM 8.7 mg/dL (8.5-10.1); GLUCOSE,RANDOM 187 mg/dL (74-106); PHOSPHOROUS 2.5 mg/dL (2.5-4.9); SGOT/AST 12 U/L (15-37); TOT PROT 7.5 g/dl (6.4-8.2)
[2017-11-10 10:11] LABS: ANION GAP 11 (8-16); CHLORIDE 104 mmol/L (98-107); CO2 23 mmol/L (21-32); POTASSIUM 4.2 mmol/L (3.5-5.1); SODIUM 138 mmol/L (136-145)
[2017-11-10] MEDS: ALBUTEROL SO4 2.5/IPRATROPIUM 0.5 INH SOL 3 ML VIAL.NEB. NEB SCH ×4 (10:15→21:05)
[2017-11-10 10:16] LABS: ALK PHOS 71 U/L (45-117); SGPT/ALT 21 U/L (12-78)
[2017-11-10] MEDS: BUDESONIDE/FORMETEROL FUMARATE 160/4.5 mcg INHALER IH SCH ×2 (10:18→21:40)
[2017-11-10] MEDS: AZITHROMYCIN IVPB 500 MG in DEXTROSE 5%-WATER - 250 ML IVPB SCH (10:19)
[2017-11-10] MEDS ORDERED: INSULIN (NOVOLOG) ASPART 100 UNITS/ML 10ML VIAL ONE (11:18)
--- NOTE | 2017-11-10 14:02 | HOSP ---
Subjective - Review of Symptoms Subjective: c/o wheezing and tightness only mild improvement since arrival. denies CP, SOB< fever, chills, N/V/C/D Current Medications Generic Name Dose Route Start Last Admin Trade Name Freq PRN Reason Stop Dose Admin Albuterol Sulfate 1 amp 11/10/17 05:05 Ventolin 0.083% Nebulizer Soln - NEB Q4H PRN SHORTNESS OF BREATH Albuterol/Ipratropium 1 amp 11/10/17 10:00 11/10/17 13:17 Duoneb - NEB 1 amp Q4HWA KAREN Administration Budesonide/Formoterol Fumarate 2 puff 11/10/17 10:00 11/10/17 10:18 Symbicort 160/4.5mcg - IH 2 puff BID KAREN Administration Heparin Sodium (Porcine) 5,000 unit 11/10/17 06:00 11/10/17 13:52 Heparin - SQ 5,000 unit TID KAREN Administration Azithromycin 500 mg/ Dextrose 250 mls @ 250 mls/hr 11/10/17 10:00 11/10/17 10 :19 IVPB 250 mls/hr DAILY KAREN Administration Insulin Aspart 1 vial 11/10/17 07:00 11/10/17 11:38 Novolog Vial Sliding Scale - SQ 6 unit ACHS KAREN Administration Protocol Methylprednisolone Sodium Succinate 40 mg 11/10/17 05:30 11/10/17 10:18 Solu-Medrol - IVPUSH 40 mg Q8H-IV KAREN Administration Non-Formulary Medication 1 tab 11/10/17 10:00 Elviteg/Cob/Emtri/Tenof Alafen [Genvoya (Non-Formulary)] PO DAILY KAREN Last Vital Signs Temp Pulse Resp BP Pulse Ox 97.8 F 104 H 26 H 101/49 99 11/10/17 09:21 11/10/17 09:21 11/10/17 09:23 11/10/17 09:21 11/10/17 09:23 General NAD CV S1 S2 tachy Lungs diffuse wheezing, poor air entry, Abdomen soft NT/ND obese Extremities no pedal edema CBCD WBC 12.5 K/mm3 (4.0-10.0) H 11/10/17 06:21 RBC 5.17 M/mm3 (3.60-5.2) 11/10/17 06:21 Hgb 10.6 GM/dL (10.7-15.3) L 11/10/17 06:21 Hct 34.9 % (32.4-45.2) 11/10/17 06:21 MCV 67.6 fl (80-96) L 11/10/17 06:21 MCHC 30.4 g/dl (32.0-36.0) L 11/10/17 06:21 RDW 19.4 % (11.6-15.6) H 11/10/17 06:21 Plt Count 368 K/MM3 (134-434) 11/10/17 06:21 MPV 7.8 fl (7.5-11.1) 11/10/17 06:21 CMP Sodium 138 mmol/L (136-145) 11/10/17 06:21 Potassium 4.2 mmol/L (3.5-5.1) 11/10/17 06:21 Chloride 104 mmol/L (98-107) 11/10/17 06:21 Carbon Dioxide 23 mmol/L (21-32) 11/10/17 06:21 Anion Gap 11 (8-16) 11/10/17 06:21 BUN 10 mg/dL (7-18) 11/10/17 06:21 Creatinine 1.0 mg/dL (0.55-1.02) 11/10/17 06:21 Creat Clearance w eGFR 59.96 (>60) 11/10/17 06:21 Random Glucose 187 mg/dL (74-106) H 11/10/17 06:21 Calcium 8.7 mg/dL (8.5-10.1) 11/10/17 06:21 Total Bilirubin 0.4 mg/dL (0.2-1.0) 11/10/17 06:21 AST 12 U/L (15-37) L 11/10/17 06:21 ALT 21 U/L (12-78) 11/10/17 06:21 Alkaline Phosphatase 71 U/L (45-117) 11/10/17 06:21 Total Protein 7.5 g/dl (6.4-8.2) 11/10/17 06:21 Albumin 3.6 g/dl (3.4-5.0) 11/10/17 06:21 CARDIAC ENZYMES Creatine Kinase 199 IU/L (26-192) H 11/10/17 01:00 Troponin I < 0.02 ng/ml (0.00-0.05) 11/10/17 01:00 A/P 47yo F wtih PMH morbid obesity, asthma, HIV and anemia wilfredo on treatment for Hpylori presented to the ER with wheezing 1. Acute asthma exacerbation- last exacerbation was a year ago, never been intubated. only mild improvement. saturating 97% on RA. will increase steroids to Q6H, azithromycin and Ceftriaxone day 1, inhalers, nebs RTC and prn. 2. Micorcytic anemia- no signs of bleeding,. Hgb stable. will check iron studies. states she received Iron IV several years ago that she does not tolerate iron po. has not been tested recently of her knowledge 3. Pre-diabetic- A1c 6.6. diabetic teaching, diabetic diet. educated on risks assoc with uncontrolled sugars. will need repeat A1c in 3 months and evaluate if would benefit from medication 4. Hpylori- currently on triple therapy, completes on sunday. will continue, hold clarithromycin while on azithro 5. HIV- on HARRT 6. morbid obesity- BMI 62. discussed about weight loss goals. discussed benefits of bariatric surgery. refusing surgery at this time. states she has the ability to loose 160lbs if she wanted to 7. DVT ppx- hep sq Physical Examination Vital Signs: Vital Signs Temperature 97.8 F 11/10/17 09:21 Pulse Rate 104 H 11/10/17 09:21 Respiratory Rate 26 H 11/10/17 09:23 Blood Pressure 101/49 11/10/17 09:21 O2 Sat by Pulse Oximetry (%) 99 11/10/17 09:23 Labs: CBC, BMP 11/10/17 06:21 11/10/17 06:21
--- NOTE | 2017-11-10 14:42 | EKG ---
Test Reason : Blood Pressure : / mmHG Vent. Rate : 102 BPM Atrial Rate : 102 BPM P-R Int : 114 ms QRS Dur : 102 ms QT Int : 382 ms P-R-T Axes : 062 035 004 degrees QTc Int : 497 ms POOR DATA QUALITY, INTERPRETATION MAY BE ADVERSELY AFFECTED SINUS TACHYCARDIA CANNOT RULE OUT ANTERIOR INFARCT , AGE UNDETERMINED ABNORMAL ECG WHEN COMPARED WITH ECG OF 26-JUL-2016 01:19, T WAVE AMPLITUDE HAS DECREASED IN LATERAL LEADS Confirmed by Rajesh Bell ([id number]) on 11/10/2017 2:42:06 PM Referred By: Confirmed By:Rajesh Bell
[2017-11-10] MEDS ORDERED: PT OWN MED DRAWER 7, Y5N ONE (21:20)
[2017-11-10] MEDS: AMOXICILLIN 500 MG CAPSULE (FP) PO SCH (21:40)
[2017-11-10] MEDS: PANTOPRAZOLE 40 MG TABLET (FP) PO SCH (21:49)
[2017-11-10] MEDS ORDERED: AMOXICILLIN 500 MG CAPSULE (FP) PO SCH (22:00)
[2017-11-11] MEDS: methylPREDNISolone NA SUCC 40 MG/1 ML VIAL IVPUSH SCH ×2 (02:19→09:10)
[2017-11-11] MEDS: ALBUTEROL SO4 2.5/IPRATROPIUM 0.5 INH SOL 3 ML VIAL.NEB. NEB SCH ×4 (06:18→21:10)
[2017-11-11] MEDS: INSULIN SLIDING SCALE (NOVOLOG) 1 VIAL SQ SCH ×4 (06:30→21:19)
[2017-11-11] MEDS: HEPARIN NA (PORCINE) 5,000 UNITS/ML 1ML VIAL SQ SCH ×3 (06:33→21:03)
[2017-11-11] MEDS ORDERED: SODIUM CHLORIDE 100 ML IVPB ONE (08:44)
[2017-11-11] MEDS ORDERED: PT OWN MED DRAWER 7, Y5N ONE ×3 (09:38→18:40)
[2017-11-11] MEDS: AZITHROMYCIN IVPB 500 MG in DEXTROSE 5%-WATER - 250 ML IVPB SCH (09:42)
[2017-11-11] MEDS: BUDESONIDE/FORMETEROL FUMARATE 160/4.5 mcg INHALER IH SCH ×2 (09:42→21:03)
[2017-11-11] MEDS: PANTOPRAZOLE 40 MG TABLET (FP) PO SCH ×2 (09:42→21:03)
[2017-11-11] MEDS: AMOXICILLIN 500 MG CAPSULE (FP) PO SCH ×2 (09:43→21:02)
[2017-11-11] MEDS ORDERED: CEFTRIAXONE 2 GM in SODIUM CHLORIDE 100 ML IVPB SCH (10:00)
[2017-11-11] MEDS ORDERED: methylPREDNISolone NA SUCC 125 MG/2 ML VIAL IVPUSH SCH (11:17)
[2017-11-11] MEDS ORDERED: methylPREDNISolone NA SUCC 40 MG/1 ML VIAL IVPUSH ONE (11:17)
--- NOTE | 2017-11-11 11:53 | PN ---
Teaching Attending Note Name of Resident: Bud Pérez ATTENDING PHYSICIAN STATEMENT I saw and evaluated the patient. I reviewed the resident's note and discussed the case with the resident. I agree with the resident's findings and plan as documented. SUBJECTIVE: c/o dyspnea at rest. no improvement since yesterday. has some chest discomfort when coughing. cough intermittently productive of yellow sputum. denies CP, fever, chills, N/V/C/D OBJECTIVE: Last Vital Signs Temp Pulse Resp BP Pulse Ox 98 F 86 18 128/68 98 11/11/17 10:00 11/11/17 10:00 11/11/17 10:11/11/17 10:11/11/17 00:49 General mild distress, mildly tachypnic CV S1 S2 RRR no murmur/rub/gallop +chest wall tenderness lungs diffuse wheezing, improved air entry but overall diminished ASSESSMENT AND PLAN: 47yo F wtih PMH morbid obesity, asthma, HIV and anemia currenlty on treatment for Hpylori presented to the ER with wheezing 1. Acute asthma exacerbation- last exacerbation was a year ago, never been intubated. only mild improvement. currently on NC and states she feels better with it on.increase steroids to 60mg Q6H. cont standing nebs and prn, inhlaers. Azithro and ceftriaxone day 2 2. Microcytic anemia- no signs of bleeding,. Hgb stable. iron studies pending. states she received Iron IV several years ago that she does not tolerate iron po. has not been tested recently of her knowledge 3. Pre-diabetic- A1c 6.6. diabetic teaching, diabetic diet. educated on risks assoc with uncontrolled sugars. will need repeat A1c in 3 months and evaluate if would benefit from medication 4. Hpylori- currently on triple therapy, completes on sunday. will continue, hold clarithromycin while on azithro 5. HIV- on HARRT 6. morbid obesity- BMI 62. not interested in bariatric surgery 7. DVT ppx- hep sq 8. can d/c cardiac monitoring
[2017-11-11] MEDS: MAGNESIUM 1GM/D5W 100ML - 100 ML IVPB IVPB SCH (12:07)
--- NOTE | 2017-11-11 13:04 | PN ---
Physical Exam: SUBJECTIVE: Patient seen and examined at bedside. She stated she's not feeling better. She' s receiving breathing treatment and received a PRN ventolin treatment at 3am in addition to her standing duoneb treatment. OBJECTIVE: Vital Signs Period Temp Pulse Resp BP Sys/So Pulse Ox Last 24 Hr 97.7 F-9802 F 86-102 18-26 122-132/68-82 98-99 GENERAL: The patient is awake, alert, and fully oriented, in moderate acute distress. LUNGS: b/l front and posterior wheezing HEART: tachycardic, S1, S2 without murmur, rub or gallop. ABDOMEN: obese, Soft, nontender, nondistended, normoactive bowel sounds, no guarding, no rebound, no hepatosplenomegaly, no masses. Laboratory Results - last 24 hr 11/10/17 11/10/17 11/11/17 17:13 21:45 05:04 POC Glucometer 218 231 227 Ferritin 11/11/17 11/11/17 05:30 11:38 POC Glucometer 266 Ferritin 18.7 Active Medications Generic Name Dose Route Start Last Admin Trade Name Freq PRN Reason Stop Dose Admin Albuterol Sulfate 1 amp 11/10/17 05:05 11/11/17 03:30 Ventolin 0.083% Nebulizer Soln - NEB 1 amp Q4H PRN Administration SHORTNESS OF BREATH Albuterol/Ipratropium 1 amp 11/10/17 10:00 11/11/17 09:15 Duoneb - NEB 1 amp Q4HWA KAREN Administration Amoxicillin 1,000 mg 11/10/17 22:00 11/11/17 09:43 Amoxicillin - PO 1,000 mg BID KAREN Administration Budesonide/Formoterol Fumarate 2 puff 11/10/17 10:00 11/11/17 09:42 Symbicort 160/4.5mcg - IH 2 puff BID KAREN Administration Heparin Sodium (Porcine) 5,000 unit 11/10/17 06:00 11/11/17 06:33 Heparin - SQ 5,000 unit TID KAREN Administration Azithromycin 500 mg/ Dextrose 250 mls @ 250 mls/hr 11/10/17 10:00 11/11/17 09 :42 IVPB 250 mls/hr DAILY KAREN Administration Ceftriaxone Sodium 2 gm/ 100 mls @ 100 mls/hr 11/11/17 10:00 11/11/17 09:24 Sodium Chloride IVPB 100 mls/hr DAILY KAREN Administration Protocol Insulin Aspart 1 vial 11/10/17 07:00 11/11/17 11:39 Novolog Vial Sliding Scale - SQ 6 unit ACHS KAREN Administration Protocol Methylprednisolone Sodium Succinate 60 mg 11/11/17 11:17 Solu-Medrol - IVPUSH Q6H-IV KAREN Non-Formulary Medication 1 tab 11/10/17 10:00 Elviteg/Cob/Emtri/Tenof Alafen [Genvoya (Non-Formulary)] PO DAILY KAREN Pantoprazole Sodium 40 mg 11/10/17 22:00 11/11/17 09:42 Protonix - PO 40 mg BID KAREN Administration ASSESSMENT/PLAN: 47 yo F morbid obesity, asthma, HIV admitted for asthma exacerbation. Acute asthma exacerbation - increase solumedrol from 40mg to 60mg Q6H - cont. standing and PRN duoneb and ventolin - cont. zithro and ceftriaxone (day 2) DM - BGM and ISS anemia - H/H stable - f/u iron studies h. pylori - cont. triple therapy and will complete on sunday - substituted clarithromycin with azithro HIV - cont. HAART morbid obesity - pt is not interested in any intervention dvt ppx - cont heparin tid dispo - d/c tele and transfer to med-surg Bud Pérez PGY3 [phone] Visit type - Emergency Visit Emergency Visit: No - New Patient This patient is new to me today: Yes Date on this admission: 11/11/17 - Critical Care Critical Care patient: No
[2017-11-11] MEDS ORDERED: INSULIN (NOVOLOG) ASPART 100 UNITS/ML 10ML VIAL ONE ×2 (18:25→21:18)
[2017-11-11] MEDS: [UNRECOGNIZED DRUG - OTHER] PO SCH ×2 (19:44→22:35)
[2017-11-11] MEDS ORDERED: ALBUTEROL SO4 0.083% IH SOL 2.5 MG/3 ML VIAL.NEB. NEB PRN (20:08)
[2017-11-11] MEDS: methylPREDNISolone NA SUCC 125 MG/2 ML VIAL IVPUSH SCH (21:02)
[2017-11-12] MEDS: methylPREDNISolone NA SUCC 125 MG/2 ML VIAL IVPUSH SCH ×4 (02:55→22:19)
[2017-11-12] MEDS: HEPARIN NA (PORCINE) 5,000 UNITS/ML 1ML VIAL SQ SCH ×3 (05:42→22:19)
[2017-11-12] MEDS: INSULIN SLIDING SCALE (NOVOLOG) 1 VIAL SQ SCH ×4 (06:04→22:18)
[2017-11-12] MEDS: ALBUTEROL SO4 2.5/IPRATROPIUM 0.5 INH SOL 3 ML VIAL.NEB. NEB SCH ×5 (06:35→22:00)
[2017-11-12 07:21] LABS: BASO % 0.1 % (0-2.0); HEMATOCRIT 34.5 % (32.4-45.2); HEMOGLOBIN 10.6 GM/dL (10.7-15.3); LYMPH % 8.4 % (8-40); MCH 20.7 pg (25.7-33.7); MCHC 30.6 g/dl (32.0-36.0); MEAN CELL VOLUME 67.8 fl (80-96); NEUT % 87.5 % (42.8-82.8); PLATELET COUNT 398 K/MM3 (134-434); RBC 5.09 M/mm3 (3.60-5.2); RDW 19.8 % (11.6-15.6); WHITE BLOOD COUNT 19.1 K/mm3 (4.0-10.0)
[2017-11-12 07:24] LABS: ANION GAP 9 (8-16); BLOOD UREA NITROGEN 17 mg/dL (7-18); CALCIUM 9.3 mg/dL (8.5-10.1); CHLORIDE 103 mmol/L (98-107); CO2 25 mmol/L (21-32); CREATININE 0.9 mg/dL (0.55-1.02); GLUCOSE,RANDOM 245 mg/dL (74-106); MAGNESIUM 2.6 mg/dL (1.8-2.4); POTASSIUM 4.6 mmol/L (3.5-5.1); SODIUM 137 mmol/L (136-145)
[2017-11-12] MEDS ORDERED: SODIUM CHLORIDE 100 ML IVPB ONE (09:20)
[2017-11-12] MEDS: AMOXICILLIN 500 MG CAPSULE (FP) PO SCH ×2 (09:26→22:20)
[2017-11-12] MEDS: BUDESONIDE/FORMETEROL FUMARATE 160/4.5 mcg INHALER IH SCH ×2 (09:27→22:22)
[2017-11-12] MEDS: CEFTRIAXONE 2 GM in SODIUM CHLORIDE 100 ML IVPB SCH (09:27)
[2017-11-12] MEDS: PANTOPRAZOLE 40 MG TABLET (FP) PO SCH ×2 (09:28→22:21)
[2017-11-12] MEDS: PATIENT'S OWN MEDICATION (NON-FORMULARY) (Elviteg/Cob/Emtri/Tenof Alafen [Genvoya (Non-For PO SCH (09:29)
[2017-11-12] MEDS: AZITHROMYCIN IVPB 500 MG in DEXTROSE 5%-WATER - 250 ML IVPB SCH (09:29)
--- NOTE | 2017-11-12 13:53 | PN ---
Teaching Attending Note Name of Resident: Luz Wagoner ATTENDING PHYSICIAN STATEMENT I saw and evaluated the patient. I reviewed the resident's note and discussed the case with the resident. I agree with the resident's findings and plan as documented. SUBJECTIVE:states her breathing does not feel improved at all since arrival. starting to have productive sputum of yellow sputum. some chest discomfort when coughing. denies fever, chills, N/V/C/D able to ambulate to the bathroom OBJECTIVE: Last Vital Signs Temp Pulse Resp BP Pulse Ox 97.4 F L 85 22 122/64 96 11/12/17 09:24 11/12/17 09:24 11/12/17 09:24 11/12/17 09:24 11/11/17 21:00 General NAD CV S1 S2 RRR no murmur/rub/gallop +chest wall tenderness lungs diffuse wheezing, improved air entry but overall diminished ASSESSMENT AND PLAN: 47yo F wtih PMH morbid obesity, asthma, HIV and anemia currenlty on treatment for Hpylori presented to the ER with wheezing 1. Acute asthma exacerbation- last exacerbation was a year ago, never been intubated. states she feels worse however her lung exam sounds slightly improved. and she is able to ambulate to the bathroom. will consult pulm if they feel pt would benefit from adjustment to inhalers. do not think CT chest would change management coordinator and low suspicion for PE. on Azithro and ceftriaxone day 3. cont steroids, nebs RTC and prn and inhalers 2. Microcytic anemia- no signs of bleeding,. Hgb stable. iron studies pending. states she received Iron IV several years ago that she does not tolerate iron po. has not been tested recently of her knowledge 3. Pre-diabetic- A1c 6.6. diabetic teaching, diabetic diet. educated on risks assoc with uncontrolled sugars. will need repeat A1c in 3 months and evaluate if would benefit from medication 4. Hpylori- currently on triple therapy, completes on sunday. will continue, hold clarithromycin while on azithro 5. HIV- on HARRT 6. morbid obesity- BMI 62. not interested in bariatric surgery 7. DVT ppx- hep sq
[2017-11-12] MEDS ORDERED: PT OWN MED DRAWER 7, Y5N ONE ×2 (18:51→21:46)
--- NOTE | 2017-11-12 20:16 | PN ---
Physical Exam: SUBJECTIVE: Patient seen and examined sitting a chair eating breakfast. Audible wheezes heard from a distance. Patient complains of pleuritic chest pain when coughing; cough productive of thick, yellow mucus. Denies fevers, chills, chest pain, SOB, vomiting, diarrhea, constipation. OBJECTIVE: Vital Signs Period Temp Pulse Resp BP Sys/So Pulse Ox Last 24 Hr 97.4 F-97.6 F 77-90 22-24 122-141/63-79 96-98 GENERAL: The patient is awake, alert, and fully oriented, in no acute distress. LUNGS: Breath sounds equal, Diffuse wheezing heard throughout HEART: Regular rate and rhythm, S1, S2 without murmur, rub or gallop. ABDOMEN: Soft, nontender, nondistended, normoactive bowel sounds EXTREMITIES: No edema Laboratory Results - last 24 hr 11/11/17 11/12/17 11/12/17 21:17 05:40 05:55 WBC 19.1 H RBC 5.09 Hgb 10.6 L Hct 34.5 MCV 67.8 L MCH 20.7 L MCHC 30.6 L RDW 19.8 H Plt Count 398 MPV 8.0 Absolute Neuts (auto) 16.7 Neutrophils % 87.5 H Lymphocytes % 8.4 Monocytes % 4.0 D Eosinophils % 0.0 Basophils % 0.1 Nucleated RBC % 0 Sodium Potassium Chloride Carbon Dioxide Anion Gap BUN Creatinine Creat Clearance w eGFR POC Glucometer 260 255 Random Glucose Calcium Magnesium 11/12/17 11/12/17 11/12/17 05:55 12:26 16:54 WBC RBC Hgb Hct MCV MCH MCHC RDW Plt Count MPV Absolute Neuts (auto) Neutrophils % Lymphocytes % Monocytes % Eosinophils % Basophils % Nucleated RBC % Sodium 137 Potassium 4.6 Chloride 103 Carbon Dioxide 25 Anion Gap 9 BUN 17 Creatinine 0.9 Creat Clearance w eGFR > 60 POC Glucometer 289 230 Random Glucose 245 H Calcium 9.3 Magnesium 2.6 H Active Medications Albuterol Sulfate (Ventolin 0.083% Nebulizer Soln -) 1 amp NEB Q4H PRN PRN Reason: SHORTNESS OF BREATH Last Admin: 11/12/17 02:32 Dose: 1 amp Albuterol/Ipratropium (Duoneb -) 1 amp NEB Q4HWA KAREN Last Admin: 11/12/17 17:11 Dose: 1 amp Amoxicillin (Amoxicillin -) 1,000 mg PO BID [facility] Last Admin: 11/12/17 09:26 Dose: 1,000 mg Budesonide/Formoterol Fumarate (Symbicort 160/4.5mcg -) 2 puff IH BID [facility] Last Admin: 11/12/17 09:27 Dose: 2 puff Heparin Sodium (Porcine) (Heparin -) 5,000 unit SQ TID KAREN Last Admin: 11/12/17 15:09 Dose: 5,000 unit Azithromycin 500 mg/ Dextrose 250 mls @ 250 mls/hr IVPB DAILY [facility] Last Admin: 11/12/17 09:29 Dose: 250 mls/hr Ceftriaxone Sodium 2 gm/ (Sodium Chloride) 100 mls @ 100 mls/hr IVPB DAILY [facility] ; Protocol Last Admin: 11/12/17 09:27 Dose: 100 mls/hr Insulin Aspart (Novolog Vial Sliding Scale -) 1 vial SQ ACHS [facility]; Protocol Last Admin: 11/12/17 16:55 Dose: 4 units Methylprednisolone Sodium Succinate (Solu-Medrol -) 80 mg IVPUSH Q6H-IV [facility] Last Admin: 11/12/17 15:09 Dose: 80 mg Non-Formulary Medication (Elviteg/Cob/Emtri/Tenof Alafen [Genvoya (Non-Formulary )]) 1 tab PO DAILY [facility] Last Admin: 11/12/17 09:29 Dose: 1 tab Pantoprazole Sodium (Protonix -) 40 mg PO BID [facility] Last Admin: 11/12/17 09:28 Dose: 40 mg ASSESSMENT/PLAN: Patient is a 47y/o F with PMHx of recurrent asthma exacerbations and hospitalizations, (never intubated), DM, HIV (on genvoya), anemia and chronic epigastric pain, presenting to ER with worsening SOB at rest for past 2 days 1. Acute asthma exacerbation - Continue SoluMedrol 80 mg IVPUSH Q6H - Continue Azithromycin and Ceftriaxone (Day 3) - Continue Duonebs Q4H, Symbicort 2 puffs bid - Supplemental oxygen as needed to maintain oxygen saturation - Peak flow measurement 2. Microcytic anemia - MCV: 67.8 - Iron studies pending 3. HIV - Cont genovya - CD4 count - viral load 4. DM - ISS, BGM - A1c: 6.6% - Diabetic diet 5. H. Pylori - Continue Triple therapy, substitute Azithromycin for Clartithromycin 6. FEN - No fluids indicated - Lytes WNL - Diabetic/sodium restricted diet 7. PPx - Heparin 5000 TID SQ Visit type - Emergency Visit Emergency Visit: Yes ED Registration Date: 11/10/17 Care time: The patient presented to the Emergency Department on the above date and was hospitalized for further evaluation of their emergent condition. - New Patient This patient is new to me today: Yes Date on this admission: 11/12/17 - Critical Care Critical Care patient: No
[2017-11-12] MEDS ORDERED: INSULIN (NOVOLOG) ASPART 100 UNITS/ML 10ML VIAL ONE (22:14)
[2017-11-13] MEDS: methylPREDNISolone NA SUCC 125 MG/2 ML VIAL IVPUSH SCH ×4 (03:17→22:06)
[2017-11-13] MEDS: ALBUTEROL SO4 2.5/IPRATROPIUM 0.5 INH SOL 3 ML VIAL.NEB. NEB SCH ×2 (06:10→10:48)
[2017-11-13] MEDS: INSULIN SLIDING SCALE (NOVOLOG) 1 VIAL SQ SCH ×4 (06:48→22:05)
[2017-11-13] MEDS: HEPARIN NA (PORCINE) 5,000 UNITS/ML 1ML VIAL SQ SCH ×3 (06:49→22:06)
[2017-11-13 07:37] LABS: BASO % 0.1 % (0-2.0); HEMATOCRIT 35.1 % (32.4-45.2); HEMOGLOBIN 10.7 GM/dL (10.7-15.3); LYMPH % 9.7 % (8-40); MCH 20.5 pg (25.7-33.7); MCHC 30.6 g/dl (32.0-36.0); MEAN CELL VOLUME 67.2 fl (80-96); MEAN PLT VOLUME 7.8 fl (7.5-11.1); MONO % 4.1 % (3.8-10.2); NEUT % 86.1 % (42.8-82.8); PLATELET COUNT 382 K/MM3 (134-434); RBC 5.23 M/mm3 (3.60-5.2); RDW 19.8 % (11.6-15.6); WHITE BLOOD COUNT 16.2 K/mm3 (4.0-10.0)
[2017-11-13 08:09] LABS: ALBUMIN 3.6 g/dl (3.4-5.0); ANION GAP 8 (8-16); BILIRUBIN,TOTAL 0.2 mg/dL (0.2-1.0); BLOOD UREA NITROGEN 16 mg/dL (7-18); CALCIUM 8.9 mg/dL (8.5-10.1); CHLORIDE 104 mmol/L (98-107); CO2 27 mmol/L (21-32); CREATININE 0.9 mg/dL (0.55-1.02); GLUCOSE,RANDOM 214 mg/dL (74-106); MAGNESIUM 2.7 mg/dL (1.8-2.4); PHOSPHOROUS 2.4 mg/dL (2.5-4.9); POTASSIUM 4.4 mmol/L (3.5-5.1); SGOT/AST 13 U/L (15-37); SGPT/ALT 23 U/L (12-78); SODIUM 139 mmol/L (136-145); TOT PROT 7.4 g/dl (6.4-8.2)
[2017-11-13 08:10] LABS: ALK PHOS 58 U/L (45-117)
[2017-11-13 09:08] LABS: ANISOCYTOSIS 1+; OVALOCYTE 1+; PLATELET ESTIMATE NORMAL; TEAR DROP CELLS 1+
[2017-11-13] MEDS ORDERED: SODIUM CHLORIDE 100 ML IVPB ONE (09:38)
[2017-11-13] MEDS: CEFTRIAXONE 2 GM in SODIUM CHLORIDE 100 ML IVPB SCH (10:08)
[2017-11-13] MEDS: AMOXICILLIN 500 MG CAPSULE (FP) PO SCH (10:08)
[2017-11-13] MEDS: AZITHROMYCIN IVPB 500 MG in DEXTROSE 5%-WATER - 250 ML IVPB SCH (10:09)
[2017-11-13] MEDS: PATIENT'S OWN MEDICATION (NON-FORMULARY) (Elviteg/Cob/Emtri/Tenof Alafen [Genvoya (Non-For PO SCH (10:09)
[2017-11-13] MEDS: PANTOPRAZOLE 40 MG TABLET (FP) PO SCH ×2 (10:09→22:07)
[2017-11-13] MEDS ORDERED: INSULIN (NOVOLOG) ASPART 100 UNITS/ML 10ML VIAL ONE ×2 (11:28→21:30)
[2017-11-13] MEDS: BUDESONIDE/FORMETEROL FUMARATE 160/4.5 mcg INHALER IH SCH ×2 (11:32→22:07)
--- NOTE | 2017-11-13 11:45 | CON.PULM ---
Consult Consult Specialty:: PULMONARY Referred by:: Dr. Jones Reason for Consultation:: asthma exacerbation - History of Present Illness Chief Complaint: shortness of breath History of Present Illness: 47yo female with h/o asthma, morbid obesity, obstructive sleep apnea but noncompliant with CPAP, DM, HIV who was admitted with worsening shortness of breath. Denies fevers, chills or sweats. No recent travel or sick contacts. + cough productive of thick yellowish sputum and wheezing. Does not know her triggers. Diagnosed with asthma at age 19 during her first . Never intubated. Has asthma exacerbations about once a year. Uses Symbicort and albuterol at home. Does not have a die set up worker. She is a never smoker. Best peak flow 300-350. - History Source History Provided By: Patient, Medical Record Limitations to Obtaining History: No Limitations - Past Medical History Cardio/Vascular: Yes: Other (Patient reports being seen by international broadcast music librarian for "sluggish heart". She reports occasional "heaviness" in her chest, no chest pain.) Pulmonary: Yes: Asthma Gastrointestinal: Yes: Irritable Bowel Disease. No: Ascites, GI Bleed, Ulcerative Colitis ...LMP: 09/21/17 Infectious Disease: Yes: HIV Additional Medical History: Morbid obesity - Past Surgical History Past Surgical History: Yes: - Alcohol/Substance Use Hx Alcohol Use: No - Smoking History Smoking history: Never smoked Have you smoked in the past 12 months: No - Social History Usual Living Arrangement: With Spouse ADL: Independent History of Recent Travel: No Home Medications - Allergies Allergies/Adverse Reactions: Allergies Allergy/AdvReac Type Severity Reaction Status Date / Time omeprazole [From Prilosec] Allergy Mild Hives Verified 11/10/17 01:06 omeprazole magnesium Allergy Mild Hives Verified 11/10/17 01:06 [From Prilosec] - Home Medications Home Medications: Ambulatory Orders Albuterol 0.083% Nebulizer Rach [Ventolin 0.083% Nebulizer Soln -] 1 amp NEB Q4H PRN #3 amp 08/07/16 Elviteg/Cob/Emtri/Tenof Alafen [Genvoya (Non-Formulary)] 1 tab PO DAILY Budesonide/Formeterol Fumarate [SYMBICORT 160/4.5mcg -] 2 inh PO BID 02/20/17 Amoxicillin 500mg Capsule - 1,000 mg PO BID 11/10/17 Clarithromycin 500 mg PO BID 11/10/17 Pantoprazole Sodium 40 mg PO DAILY 11/10/17 Family Disease History - Family Disease History Family Disease History: Diabetes: Father, Heart Disease: Father Review of Systems - Review of Systems Constitutional: denies: Chills, Fever Eyes: denies: Recent Change in Vision HENT: denies: Nasal Congestion, Throat Pain Neck: denies: Stiffness, Tenderness Cardiovascular: reports: Shortness of Breath. denies: Chest Pain, Edema, Palpitations Respiratory: reports: Cough, Exercise Intolerance, SOB, SOB on Exertion, Wheezing. denies: Hemoptysis Gastrointestinal: denies: Abdominal Pain, Nausea, Vomiting Genitourinary: denies: Dysuria, Hematuria Neurological: denies: Dizziness, Headache Endocrine: denies: Unexplained Weight Gain, Unexplained Weight Loss Physical Exam Vital Sings: Vital Signs Temperature 97.5 F L 11/13/17 10:05 Pulse Rate 68 11/13/17 10:05 Respiratory Rate 22 11/13/17 10:05 Blood Pressure 143/63 11/13/17 10:05 O2 Sat by Pulse Oximetry (%) 98 11/12/17 21:00 Constitutional: Yes: Anxious, Mild Distress Eyes: Yes: Conjunctiva Clear, EOM Intact HENT: Yes: Atraumatic, Normocephalic Neck: Yes: Supple, Trachea Midline Cardiovascular: Yes: Regular Rate and Rhythm Respiratory: Yes: Rhonchi, Wheezes ...Clubbing: No Gastrointestinal: Yes: Normal Bowel Sounds, Soft, Abdomen, Obese. No: Tenderness Edema: No Neurological: Yes: Alert, Oriented Labs: CBC, BMP 11/13/17 06:35 11/13/17 06:35 Imaging - Results Chest X-ray: Report Reviewed, Image Reviewed (limited study, no obvious infiltrates) Problem List - Problems (1) Asthma exacerbation Code(s): J45.901 - UNSPECIFIED ASTHMA WITH (ACUTE) EXACERBATION Qualifiers: Asthma severity: unspecified severity Asthma persistence: unspecified Qualified Code(s): J45.901 - Unspecified asthma with (acute) exacerbation (2) Acute bronchitis Code(s): J20.9 - ACUTE BRONCHITIS, UNSPECIFIED (3) HIV (human immunodeficiency virus infection) Code(s): Z21 - ASYMPTOMATIC HUMAN IMMUNODEFICIENCY VIRUS INFECTION STATUS (4) Obesity Code(s): E66.9 - OBESITY, UNSPECIFIED Qualifiers: Obesity type: unspecified obesity type Obesity classification: adult class 3 (BMI >= 40) Serious obesity comorbidity presence: unspecified whether serious comorbidity present Body mass index: BMI 60.0-69.9 Qualified Code(s) : E66.9 - Obesity, unspecified; Z68.44 - Body mass index (BMI) 60.0-69.9, adult (5) Sleep apnea, obstructive Code(s): G47.33 - OBSTRUCTIVE SLEEP APNEA (ADULT) (PEDIATRIC) Assessment/Plan Acute Asthma Exacerbation Acute Bronchitis HIV DM Morbid Obesity Obstructive Sleep Apnea - change duonebs to mucomyst with albuterol nebs - start spiriva - add singulair - inhaled bronchodilators standing and PRN - monitor peak flow - discussed BiPAP, she will allow trial - will give short course of terbutaline - empiric antibiotics - can defer PE work up, low suspicion at this time given acute bronchospasm - outpt PFTs, allergy testing, IgE level, RAST when off steroids - DVT prophylaxis Thank you for this consult Mendoza Felix MD
--- NOTE | 2017-11-13 12:44 | PN ---
Progress Note (short form) - Note Progress Note: ID Consult dictated Acute exacerbation bronchial asthma Possible RLL pneumonia HIV/ AIDS Check sputum c/s, Legionella ag CT chest Empiric zithromax/ ceftriaxone ART
[2017-11-13] MEDS: ACETYLCYSTEINE 20% 200MG/ML 4 ML VIAL *FOR ORAL / INH USE ONLY NEB SCH ×3 (13:00→21:15)
[2017-11-13] MEDS: ALBUTEROL SO4 0.083% IH SOL 2.5 MG/3 ML VIAL.NEB. NEB SCH ×3 (13:00→21:15)
--- NOTE | 2017-11-13 13:40 | CONS ---
DATE OF CONSULTATION: DATE OF DICTATION: 11/13/2017 HISTORY OF PRESENT ILLNESS: This patient is a 47-year-old female with history of acquired immunodeficiency syndrome on antiretroviral therapy, bronchial asthma, morbid obesity, evaluated for pneumonia. She was admitted to the hospital on November 10, 2017, with a 2-day history of worsening shortness of breath, wheezing, chest discomfort, diaphoresis. She was admitted with acute exacerbation of bronchial asthma. She reports cough productive of yellowish, greenish sputum with difficulty expectorating. She was empirically treated with Zithromax and ceftriaxone. She denies any ill contacts. She has a history of asthma. Her last exacerbation requiring hospitalization was in June of 2016. She is a nonsmoker. No recent travel or significant pet exposure. Patient has a history of acquired immunodeficiency syndrome. She is stable on antiretroviral therapy. She is unaware of her most recent viral load and T-cell count. However, she reports that it is good. Her CD4 count in June of 2016 was 197. PAST MEDICAL HISTORY: Positive for acquired immunodeficiency syndrome, bronchial asthma, morbid obesity. ALLERGIES: To OMEPRAZOLE. MEDICATIONS: Genvoya, Symbicort. SOCIAL HISTORY: She lives at home in the community. A nonsmoker. LABORATORY DATA: White count 16.2, hematocrit 35.1, platelet count 382. BUN 16, creatinine 0.9. PHYSICAL EXAMINATION: General: She is morbidly obese, out of bed to chair. Vital signs: Temperature 97.5, blood pressure 143/63, pulse 68 and regular, respirations 22 per minute. HEENT: Sclerae anicteric. No thrush. Neck: Supple. Heart: Heart sounds S1, S2. Lungs: Bilateral wheezing and rhonchi. Abdomen: Obese, soft, nontender. Extremities: Positive for edema. IMPRESSION: 1. Acute exacerbation bronchial asthma. 2. Possible right lower lobe community-acquired versus atypical pneumonia. 3. Acquired immunodeficiency syndrome, stable. PLAN: Check sputum culture, urine legionella antigen, CT scan of the chest. Continue empiric Zithromax, ceftriaxone, bronchodilators, intravenous corticosteroids, antiretroviral therapy. Thank you for the kind referral. CL MARS M.D. [id number]
[2017-11-13 14:30] LABS: SERUM IRON SATURATION 8 % (15-55); TOTAL IRON BINDING CAPACITY 403 ug/dL (250-450); UIBC 372 ug/dL (131-425)
--- NOTE | 2017-11-13 14:34 | PN ---
Teaching Attending Note Name of Resident: Luz Wagoner ATTENDING PHYSICIAN STATEMENT I saw and evaluated the patient. I reviewed the resident's note and discussed the case with the resident. I agree with the resident's findings and plan as documented with exceptions below. SUBJECTIVE: Patient seen and examined. breathing with some improvement, overall unchanged. OBJECTIVE: Vital Signs Period Temp Pulse Resp BP Sys/So Pulse Ox Last 24 Hr 97.5 F-98.0 F 68-78 22-22 141-143/63-78 98 Intake & Output 11/10/17 11/11/17 11/12/17 11/13/17 23:59 23:59 23:59 23:59 Intake Total 1010 1348 250 Output Total 1 Balance 1010 1347 250 Weight 339 lb 339 lb General: sitting in bed with audible wheezing, able to talk in full sentences, mild tachypnea, morbid obesity BMI 62 Neck; limited exam, unable to visualized JVD Chest: upper airway wheezing, decreased air entry all over otherwise Extremities: 2+ pitting edema, L>R Home Medications Medication Instructions Recorded Albuterol 0.083% Nebulizer Rach 1 amp NEB Q4H PRN #3 amp 08/07/16 [Ventolin 0.083% Nebulizer Soln -] Elviteg/Cob/Emtri/Tenof Alafen 1 tab PO DAILY 02/19/17 [Genvoya (Non-Formulary)] Budesonide/Formeterol Fumarate 2 inh PO BID 02/20/17 [SYMBICORT 160/4.5mcg -] Amoxicillin 500mg Capsule - 1,000 mg PO BID 11/10/17 Clarithromycin 500 mg PO BID 11/10/17 Pantoprazole Sodium 40 mg PO DAILY 11/10/17 Active Medications Acetylcysteine (Mucomyst 20 Oral / Inh Use Only*) 200 mg NEB RQID KAREN Albuterol Sulfate (Ventolin 0.083% Nebulizer Soln -) 1 amp NEB Q4H PRN PRN Reason: SHORTNESS OF BREATH Last Admin: 11/12/17 02:32 Dose: 1 amp Albuterol Sulfate (Ventolin 0.083% Nebulizer Soln -) 1 amp NEB RQID KAREN Budesonide/Formoterol Fumarate (Symbicort 160/4.5mcg -) 2 puff IH BID KAREN Last Admin: 11/13/17 11:32 Dose: 2 puff Heparin Sodium (Porcine) (Heparin -) 5,000 unit SQ TID KAREN Last Admin: 11/13/17 06:49 Dose: 5,000 unit Azithromycin 500 mg/ Dextrose 250 mls @ 250 mls/hr IVPB DAILY KAREN Last Admin: 11/13/17 10:09 Dose: 250 mls/hr Ceftriaxone Sodium 2 gm/ (Sodium Chloride) 100 mls @ 100 mls/hr IVPB DAILY KAREN ; Protocol Last Admin: 11/13/17 10:08 Dose: 100 mls/hr Insulin Aspart (Novolog Vial Sliding Scale -) 1 vial SQ ACHS KAREN; Protocol Last Admin: 11/13/17 11:33 Dose: 6 units Methylprednisolone Sodium Succinate (Solu-Medrol -) 80 mg IVPUSH Q6H-IV KAREN Last Admin: 11/13/17 10:08 Dose: 80 mg Montelukast Sodium (Singulair -) 10 mg PO HS KAREN Non-Formulary Medication (Elviteg/Cob/Emtri/Tenof Alafen [Genvoya (Non-Formulary )]) 1 tab PO DAILY KAREN Last Admin: 11/13/17 10:09 Dose: 1 tab Pantoprazole Sodium (Protonix -) 40 mg PO BID KAREN Last Admin: 11/13/17 10:09 Dose: 40 mg Terbutaline Sulfate (Brethine -) 2.5 mg PO Q6H KAREN Stop: 11/14/17 06:01 Tiotropium [place] (Spiriva -) 1 puff IH DAILY [facility] Laboratory Results - last 24 hr 11/11/17 11/12/17 11/12/17 05:30 16:54 22:17 WBC RBC Hgb Hct MCV MCH MCHC RDW Plt Count MPV Absolute Neuts (auto) Neutrophils % Neutrophils % (Manual) Band Neutrophils % Lymphocytes % Lymphocytes % (Manual) Monocytes % Monocytes % (Manual) Eosinophils % Eosinophils % (Manual) Basophils % Basophils % (Manual) Myelocytes % (Man) Promyelocytes % (Man) Blast Cells % (Manual) Nucleated RBC % Metamyelocytes Hypochromia Platelet Estimate Poikilocytosis Anisocytosis Microcytosis Tear Drop Cells Ovalocytes Sodium Potassium Chloride Carbon Dioxide Anion Gap BUN Creatinine Creat Clearance w eGFR POC Glucometer 230 287 Random Glucose Calcium Phosphorus Magnesium Iron 31 TIBC 403 Iron Saturation 8 L Total Bilirubin AST ALT Alkaline Phosphatase Total Protein Albumin 11/13/17 11/13/17 11/13/17 06:35 06:35 06:46 WBC 16.2 H RBC 5.23 H Hgb 10.7 Hct 35.1 MCV 67.2 L MCH 20.5 L MCHC 30.6 L RDW 19.8 H Plt Count 382 MPV 7.8 Absolute Neuts (auto) 13.9 Neutrophils % 86.1 H Neutrophils % (Manual) 88.5 H Band Neutrophils % 0.0 Lymphocytes % 9.7 Lymphocytes % (Manual) 10.4 Monocytes % 4.1 Monocytes % (Manual) 1 L Eosinophils % 0.0 Eosinophils % (Manual) 0.0 Basophils % 0.1 Basophils % (Manual) 0.0 Myelocytes % (Man) 0 Promyelocytes % (Man) 0 Blast Cells % (Manual) 0 Nucleated RBC % 0 Metamyelocytes 0 Hypochromia 3+ Platelet Estimate Normal Poikilocytosis 1+ Anisocytosis 1+ Microcytosis 1+ Tear Drop Cells 1+ Ovalocytes 1+ Sodium 139 Potassium 4.4 Chloride 104 Carbon Dioxide 27 Anion Gap 8 BUN 16 Creatinine 0.9 Creat Clearance w eGFR > 60 POC Glucometer 209 Random Glucose 214 H Calcium 8.9 Phosphorus 2.4 L Magnesium 2.7 H Iron TIBC Iron Saturation Total Bilirubin 0.2 AST 13 L ALT 23 Alkaline Phosphatase 58 D Total Protein 7.4 Albumin 3.6 11/13/17 11:27 WBC RBC Hgb Hct MCV MCH MCHC RDW Plt Count MPV Absolute Neuts (auto) Neutrophils % Neutrophils % (Manual) Band Neutrophils % Lymphocytes % Lymphocytes % (Manual) Monocytes % Monocytes % (Manual) Eosinophils % Eosinophils % (Manual) Basophils % Basophils % (Manual) Myelocytes % (Man) Promyelocytes % (Man) Blast Cells % (Manual) Nucleated RBC % Metamyelocytes Hypochromia Platelet Estimate Poikilocytosis Anisocytosis Microcytosis Tear Drop Cells Ovalocytes Sodium Potassium Chloride Carbon Dioxide Anion Gap BUN Creatinine Creat Clearance w eGFR POC Glucometer 265 Random Glucose Calcium Phosphorus Magnesium Iron TIBC Iron Saturation Total Bilirubin AST ALT Alkaline Phosphatase Total Protein Albumin ASSESSMENT AND PLAN: 47yo F wtih PMH morbid obesity, asthma, HIV and anemia, H pylori gastritis on tx admitted with acute asthma exacerbation -Acute asthma exacerbation -Possible RLL CAP -?Right heart dysfunction -Morbid obesity -PUMA, non compliant with CPAP -HIV on HAART -H. pylori gastritis on triple therapy -Microcytic anemia (pror history of IV iron and intolerence to PO iron reportedly) -Pre-diabetes, A1c 6.6 Plan: Still symptomatic. Continue solumedrol. Pulmonary input appreciated. mucomyst/ symbicort/terbutaline. ABG Bipap trial if patient agreable (non compliant with home CPAP). LE duplex. Agree, current exam and findings low suspicion for PE. Will check CT chest non contrast to assess lung parenchyma. 2D echo to assess right heart, pulmonary artery pressures if able. ISS, diabetic diet and counseling. Diabetic education. ID consulted, input appreciated. Ceftriaxone/azithromycin day 2. ON triple therapy, continue PPI BID (hold ampicillin/clarithromycin given above) . Last day tomorrow. Continue HAART. DVTPPx with heparin Dispo pending clinical improvement. Plan discussed with patient in detail, all questions answered.
[2017-11-13] MEDS: TIOTROPIUM BROMIDE 18 MCG CAPSULES IH SCH (16:06)
[2017-11-13] MEDS: TERBUTALINE SULFATE 2.5 MG TABLET PO SCH ×2 (16:07→17:28)
--- NOTE | 2017-11-13 16:18 | ECHO ---
Name: ZARAGOZA, FILOMENA Exam:Adult Echocardiogram Study Date: 11/13/2017 03:13 PM Reason For Study: HEART FUNCTION Height: 62 in Weight: 330 lb BSA: 2.4 m2 MMode/2D Measurements & Calculations IVSd: 1.1 cm Ao root diam: 1.5 cm LVIDd: 5.6 cm LA dimension: 4.4 cm LVIDs: 3.6 cm LVPWd: 0.87 cm EDV(Teich): 154.2 ml ESV(Teich): 52.7 ml Doppler Measurements & Calculations MV E max patric: 96.0 cm/sec MR max patric: 222.6 cm/sec MV A max patric: 68.4 cm/sec MR max P.8 mmHg MV E/A: 1.4 MV dec time: 0.18 sec TR max patric: 213.1 cm/sec Med Peak E' Patric: 6.6 cm/sec TR max P.2 mmHg Med E/e': 14.5 Lat Peak E' Patric: 7.2 cm/sec Lat E/e': 13.4 Procedure The study was technically limited with all images being suboptimal in quality. Left Ventricle The left ventricle is borderline dilated. Left ventricular systolic function is grossly normal. LVEF = 55-60%. The transmitral spectral Doppler flow pattern is normal for age. Right Ventricle The right ventricle is not well visualized. Atria The left atrium is mildly dilated. Right atrium not well visualized. Mitral Valve The mitral valve is grossly normal. Tricuspid Valve The tricuspid valve is not well visualized, but is grossly normal. There was insufficient TR detected to calculate RV systolic pressure. Aortic Valve The aortic valve is not well visualized. Pulmonic Valve The pulmonic valve is not well visualized. Great Vessels The aortic root is normal size. Pericardium/Pleura There is no pericardial effusion. Interpretation Summary The study was technically limited with all images being suboptimal in quality. The left ventricle is borderline dilated. Left ventricular systolic function is grossly normal. LVEF = 55-60%. The right ventricle is not well visualized. The left atrium is mildly dilated. MD Danica Velasquez 11/13/2017 04:18 PM
[2017-11-13 16:42] LABS: ARTERIAL BLOOD GAS BASE EXCESS -0.2 meq/l (-2-2); ARTERIAL BLOOD GAS PCO2 41.5 mmHg (35-45); ARTERIAL BLOOD GAS PO2 78.7 mmHg (80-100); ARTERIAL BLOOD GAS pH 7.39 (7.35-7.45)
[2017-11-13 16:43] LABS: ALLENS TEST POSITIVE
[2017-11-13] MEDS ORDERED: PT OWN MED DRAWER 7, Y5N ONE ×2 (17:33→21:31)
--- NOTE | 2017-11-13 18:00 | PN ---
Physical Exam: SUBJECTIVE: Patient seen and examined sitting in her chair. Cough continues to produce thick, yellow mucus. Denies fevers, chills, chest pain, SOB, vomiting, diarrhea, constipation. OBJECTIVE: Vital Signs Period Temp Pulse Resp BP Sys/So Pulse Ox Last 24 Hr 97.5 F-98.0 F 68-78 22-24 116-143/59-78 98-98 GENERAL: The patient is awake, alert, and fully oriented, in no acute distress. LUNGS: Breath sounds equal, Diffuse wheezing heard throughout HEART: Regular rate and rhythm, S1, S2 without murmur, rub or gallop. ABDOMEN: Obese, Soft, nontender, nondistended, normoactive bowel sounds Laboratory Results - last 24 hr 11/11/17 11/12/17 11/13/17 05:30 22:17 06:35 WBC 16.2 H RBC 5.23 H Hgb 10.7 Hct 35.1 MCV 67.2 L MCH 20.5 L MCHC 30.6 L RDW 19.8 H Plt Count 382 MPV 7.8 Absolute Neuts (auto) 13.9 Neutrophils % 86.1 H Neutrophils % (Manual) 88.5 H Band Neutrophils % 0.0 Lymphocytes % 9.7 Lymphocytes % (Manual) 10.4 Monocytes % 4.1 Monocytes % (Manual) 1 L Eosinophils % 0.0 Eosinophils % (Manual) 0.0 Basophils % 0.1 Basophils % (Manual) 0.0 Myelocytes % (Man) 0 Promyelocytes % (Man) 0 Blast Cells % (Manual) 0 Nucleated RBC % 0 Metamyelocytes 0 Hypochromia 3+ Platelet Estimate Normal Poikilocytosis 1+ Anisocytosis 1+ Microcytosis 1+ Tear Drop Cells 1+ Ovalocytes 1+ Anticoagulation Therapy Puncture Site ABG pH ABG pCO2 at Pt Temp ABG pO2 at Pt Temp ABG HCO3 ABG O2 Sat (Measured) ABG O2 Content ABG Base Excess Rik Test O2 Delivery Device Oxygen Flow Rate Vent Mode Vent Rate Mechanical Rate Pressure Support Vent Sodium Potassium Chloride Carbon Dioxide Anion Gap BUN Creatinine Creat Clearance w eGFR POC Glucometer 287 Random Glucose Calcium Phosphorus Magnesium Iron 31 TIBC 403 Iron Saturation 8 L Total Bilirubin AST ALT Alkaline Phosphatase Total Protein Albumin 11/13/17 11/13/17 11/13/17 06:35 06:46 11:27 WBC RBC Hgb Hct MCV MCH MCHC RDW Plt Count MPV Absolute Neuts (auto) Neutrophils % Neutrophils % (Manual) Band Neutrophils % Lymphocytes % Lymphocytes % (Manual) Monocytes % Monocytes % (Manual) Eosinophils % Eosinophils % (Manual) Basophils % Basophils % (Manual) Myelocytes % (Man) Promyelocytes % (Man) Blast Cells % (Manual) Nucleated RBC % Metamyelocytes Hypochromia Platelet Estimate Poikilocytosis Anisocytosis Microcytosis Tear Drop Cells Ovalocytes Anticoagulation Therapy Puncture Site ABG pH ABG pCO2 at Pt Temp ABG pO2 at Pt Temp ABG HCO3 ABG O2 Sat (Measured) ABG O2 Content ABG Base Excess Rik Test O2 Delivery Device Oxygen Flow Rate Vent Mode Vent Rate Mechanical Rate Pressure Support Vent Sodium 139 Potassium 4.4 Chloride 104 Carbon Dioxide 27 Anion Gap 8 BUN 16 Creatinine 0.9 Creat Clearance w eGFR > 60 POC Glucometer 209 265 Random Glucose 214 H Calcium 8.9 Phosphorus 2.4 L Magnesium 2.7 H Iron TIBC Iron Saturation Total Bilirubin 0.2 AST 13 L ALT 23 Alkaline Phosphatase 58 D Total Protein 7.4 Albumin 3.6 11/13/17 11/13/17 16:24 16:30 WBC RBC Hgb Hct MCV MCH MCHC RDW Plt Count MPV Absolute Neuts (auto) Neutrophils % Neutrophils % (Manual) Band Neutrophils % Lymphocytes % Lymphocytes % (Manual) Monocytes % Monocytes % (Manual) Eosinophils % Eosinophils % (Manual) Basophils % Basophils % (Manual) Myelocytes % (Man) Promyelocytes % (Man) Blast Cells % (Manual) Nucleated RBC % Metamyelocytes Hypochromia Platelet Estimate Poikilocytosis Anisocytosis Microcytosis Tear Drop Cells Ovalocytes Anticoagulation Therapy No Result Required. Puncture Site No Result Required. ABG pH 7.39 ABG pCO2 at Pt Temp 41.5 ABG pO2 at Pt Temp 78.7 L D ABG HCO3 24.3 ABG O2 Sat (Measured) 96.0 ABG O2 Content 14.6 L ABG Base Excess -0.2 Rik Test Positive O2 Delivery Device Nasal Oxygen Flow Rate Yes Vent Mode No Result Required. Vent Rate No Result Required. Mechanical Rate No Result Required. Pressure Support Vent No Result Required. Sodium Potassium Chloride Carbon Dioxide Anion Gap BUN Creatinine Creat Clearance w eGFR POC Glucometer 241 Random Glucose Calcium Phosphorus Magnesium Iron TIBC Iron Saturation Total Bilirubin AST ALT Alkaline Phosphatase Total Protein Albumin Active Medications Acetylcysteine (Mucomyst 20 Oral / Inh Use Only*) 200 mg NEB RQID KAREN Last Admin: 11/13/17 16:00 Dose: 200 mg Albuterol Sulfate (Ventolin 0.083% Nebulizer Soln -) 1 amp NEB Q4H PRN PRN Reason: SHORTNESS OF BREATH Last Admin: 11/12/17 02:32 Dose: 1 amp Albuterol Sulfate (Ventolin 0.083% Nebulizer Soln -) 1 amp NEB RQID KAREN Last Admin: 11/13/17 16:00 Dose: 1 amp Budesonide/Formoterol Fumarate (Symbicort 160/4.5mcg -) 2 puff IH BID KAREN Last Admin: 11/13/17 11:32 Dose: 2 puff Heparin Sodium (Porcine) (Heparin -) 5,000 unit SQ TID KAREN Last Admin: 11/13/17 14:00 Dose: Not Given Azithromycin 500 mg/ Dextrose 250 mls @ 250 mls/hr IVPB DAILY KAREN Last Admin: 11/13/17 10:09 Dose: 250 mls/hr Ceftriaxone Sodium 2 gm/ (Sodium Chloride) 100 mls @ 100 mls/hr IVPB DAILY KAREN ; Protocol Last Admin: 11/13/17 10:08 Dose: 100 mls/hr Insulin Aspart (Novolog Vial Sliding Scale -) 1 vial SQ ACHS KAREN; Protocol Last Admin: 11/13/17 16:26 Dose: 4 units Methylprednisolone Sodium Succinate (Solu-Medrol -) 80 mg IVPUSH Q6H-IV KAREN Last Admin: 11/13/17 16:08 Dose: 80 mg Montelukast Sodium (Singulair -) 10 mg PO HS KAREN Non-Formulary Medication (Elviteg/Cob/Emtri/Tenof Alafen [Genvoya (Non-Formulary )]) 1 tab PO DAILY KAREN Last Admin: 11/13/17 10:09 Dose: 1 tab Pantoprazole Sodium (Protonix -) 40 mg PO BID KAREN Last Admin: 11/13/17 10:09 Dose: 40 mg Terbutaline Sulfate (Brethine -) 2.5 mg PO Q6H KAREN Stop: 11/14/17 06:01 Last Admin: 11/13/17 17:28 Dose: Not Given Tiotropium [place] (Spiriva -) 1 puff IH DAILY [facility] Last Admin: 11/13/17 16:06 Dose: 1 cap ASSESSMENT/PLAN: Patient is a 47y/o F with PMHx of recurrent asthma exacerbations and hospitalizations, (never intubated), DM, HIV (on genvoya), anemia and chronic epigastric pain, presenting to ER with worsening SOB at rest for past 2 days 1. Acute asthma exacerbation - Continue SoluMedrol 80 mg IVPUSH Q6H - Continue Azithromycin and Ceftriaxone (Day 4) - Continue Duonebs Q4H, Symbicort 2 puffs bid - Supplemental oxygen as needed to maintain oxygen saturation - Peak flow measurement - Pulmonary consulted, appreciated recs - ABG - CT Chest pending - 2D Echo pending 2. Microcytic anemia - MCV: 67.8 - Iron studies pending 3. HIV - Cont genovya - CD4 count - viral load 4. DM - ISS, BGM - A1c: 6.6% - Diabetic diet 5. H. Pylori - Continue Triple therapy, substitute Azithromycin for Clartithromycin, Hold ampicillin 6. FEN - No fluids indicated - Lytes WNL - Diabetic/sodium restricted diet 7. PPx - Heparin 5000 TID SQ Visit type - Emergency Visit Emergency Visit: Yes ED Registration Date: 11/10/17 Care time: The patient presented to the Emergency Department on the above date and was hospitalized for further evaluation of their emergent condition. - New Patient This patient is new to me today: No - Critical Care Critical Care patient: No
[2017-11-13] MEDS: MONTELUKAST NA 10 MG TABLET PO SCH (22:07)
[2017-11-14] MEDS: TERBUTALINE SULFATE 2.5 MG TABLET PO SCH ×2 (00:14→06:38)
[2017-11-14] MEDS: methylPREDNISolone NA SUCC 125 MG/2 ML VIAL IVPUSH SCH ×3 (02:33→21:24)
[2017-11-14] MEDS ORDERED: PT OWN MED DRAWER 7, Y5N ONE (05:10)
[2017-11-14] MEDS: HEPARIN NA (PORCINE) 5,000 UNITS/ML 1ML VIAL SQ SCH ×3 (06:38→21:24)
[2017-11-14] MEDS: INSULIN SLIDING SCALE (NOVOLOG) 1 VIAL SQ SCH ×4 (06:39→22:03)
[2017-11-14 07:05] LABS: BASO % 0.5 % (0-2.0); EOS % 0.1 % (0-4.5); HEMATOCRIT 35.8 % (32.4-45.2); HEMOGLOBIN 10.9 GM/dL (10.7-15.3); LYMPH % 8.4 % (8-40); MCH 20.8 pg (25.7-33.7); MCHC 30.5 g/dl (32.0-36.0); MEAN PLT VOLUME 7.7 fl (7.5-11.1); MONO % 0.2 % (3.8-10.2); NEUT % 90.8 % (42.8-82.8); PLATELET COUNT 371 K/MM3 (134-434); RBC 5.27 M/mm3 (3.60-5.2); RDW 19.8 % (11.6-15.6); WHITE BLOOD COUNT 15.4 K/mm3 (4.0-10.0)
[2017-11-14 07:36] LABS: ALBUMIN 3.3 g/dl (3.4-5.0); ALK PHOS 58 U/L (45-117); ANION GAP 8 (8-16); BILIRUBIN,TOTAL 0.1 mg/dL (0.2-1.0); BLOOD UREA NITROGEN 16 mg/dL (7-18); CALCIUM 8.8 mg/dL (8.5-10.1); CHLORIDE 104 mmol/L (98-107); CO2 28 mmol/L (21-32); GLUCOSE,RANDOM 287 mg/dL (74-106); MAGNESIUM 2.7 mg/dL (1.8-2.4); PHOSPHOROUS 2.5 mg/dL (2.5-4.9); SGOT/AST 17 U/L (15-37); SGPT/ALT 29 U/L (12-78); SODIUM 140 mmol/L (136-145); TOT PROT 6.9 g/dl (6.4-8.2)
[2017-11-14] MEDS: ALBUTEROL SO4 0.083% IH SOL 2.5 MG/3 ML VIAL.NEB. NEB SCH ×4 (08:35→20:42)
[2017-11-14] MEDS: ACETYLCYSTEINE 20% 200MG/ML 4 ML VIAL *FOR ORAL / INH USE ONLY NEB SCH ×4 (08:35→20:42)
[2017-11-14] MEDS ORDERED: SODIUM CHLORIDE 200 ML IVPB ONE (09:25)
[2017-11-14] MEDS ORDERED: SODIUM CHLORIDE 100 ML IVPB ONE (09:26)
[2017-11-14] MEDS: PATIENT'S OWN MEDICATION (NON-FORMULARY) (Elviteg/Cob/Emtri/Tenof Alafen [Genvoya (Non-For PO SCH (09:43)
[2017-11-14] MEDS: PANTOPRAZOLE 40 MG TABLET (FP) PO SCH ×2 (09:44→21:25)
[2017-11-14] MEDS: TIOTROPIUM BROMIDE 18 MCG CAPSULES IH SCH (09:52)
[2017-11-14] MEDS: BUDESONIDE/FORMETEROL FUMARATE 160/4.5 mcg INHALER IH SCH ×2 (09:52→21:25)
[2017-11-14 10:25] LABS: ANISOCYTOSIS 2+; MACROCYTOSIS 0; PLATELET ESTIMATE NORMAL
[2017-11-14] MEDS: CEFTRIAXONE 2 GM in SODIUM CHLORIDE 100 ML IVPB SCH (11:16)
[2017-11-14] MEDS: AZITHROMYCIN IVPB 500 MG in DEXTROSE 5%-WATER - 250 ML IVPB SCH (11:21)
[2017-11-14 12:04] VITALS: BMI 61.0
--- NOTE | 2017-11-14 12:22 | PN ---
Progress Note, Physician History of Present Illness: PULMONARY ALERT,SLOWLY IMPROVING,LESS DYSPNEIC,+COUGH - Current Medication List Current Medications: Active Medications Acetylcysteine (Mucomyst 20 Oral / Inh Use Only*) 200 mg NEB RQID KAREN Last Admin: 11/14/17 12:14 Dose: 200 mg Albuterol Sulfate (Ventolin 0.083% Nebulizer Soln -) 1 amp NEB Q4H PRN PRN Reason: SHORTNESS OF BREATH Last Admin: 11/12/17 02:32 Dose: 1 amp Albuterol Sulfate (Ventolin 0.083% Nebulizer Soln -) 1 amp NEB RQID KAREN Last Admin: 11/14/17 12:14 Dose: 1 amp Budesonide/Formoterol Fumarate (Symbicort 160/4.5mcg -) 2 puff IH BID [facility] Last Admin: 11/14/17 09:52 Dose: 2 puff Heparin Sodium (Porcine) (Heparin -) 5,000 unit SQ TID [facility] Last Admin: 11/14/17 06:38 Dose: 5,000 unit Azithromycin 500 mg/ Dextrose 250 mls @ 250 mls/hr IVPB DAILY [facility] Last Admin: 11/14/17 11:21 Dose: 250 mls/hr Ceftriaxone Sodium 2 gm/ (Sodium Chloride) 100 mls @ 100 mls/hr IVPB DAILY [facility] ; Protocol Last Admin: 11/14/17 11:16 Dose: 100 mls/hr Insulin Aspart (Novolog Vial Sliding Scale -) 1 vial SQ ACHS [facility]; Protocol Last Admin: 11/14/17 12:07 Dose: 6 units Insulin Detemir (Levemir Vial) 5 units SQ [facility] Methylprednisolone Sodium Succinate (Solu-Medrol -) 80 mg IVPUSH Q6H-IV KAREN Last Admin: 11/14/17 09:49 Dose: 80 mg Montelukast Sodium (Singulair -) 10 mg PO HS [facility] Last Admin: 11/13/17 22:07 Dose: 10 mg Non-Formulary Medication (Elviteg/Cob/Emtri/Tenof Alafen [Genvoya (Non-Formulary )]) 1 tab PO DAILY [facility] Last Admin: 11/14/17 09:43 Dose: 1 tab Pantoprazole Sodium (Protonix -) 40 mg PO BID [facility] Last Admin: 11/14/17 09:44 Dose: 40 mg Tiotropium [place] (Spiriva -) 1 puff IH DAILY KAREN Last Admin: 11/14/17 09:52 Dose: 1 cap - Objective Vital Signs: Vital Signs Temperature 97.6 F 11/14/17 10:00 Pulse Rate 84 11/14/17 10:00 Respiratory Rate 22 11/14/17 10:00 Blood Pressure 115/99 11/14/17 10:00 O2 Sat by Pulse Oximetry (%) 98 11/14/17 02:30 Constitutional: Yes: Calm, Obese Eyes: Yes: WNL HENT: Yes: WNL Neck: Yes: WNL Cardiovascular: Yes: Regular Rate and Rhythm, S1, S2 Respiratory: Yes: Wheezes (BILATERAL WWHEEZES) Gastrointestinal: Yes: Normal Bowel Sounds, Soft, Abdomen, Obese Extremities: Yes: WNL Edema: Yes Labs: CBC, BMP 11/14/17 06:30 11/14/17 06:30 Assessment/Plan Problem List - Problems (1) Asthma exacerbation Code(s): J45.901 - UNSPECIFIED ASTHMA WITH (ACUTE) EXACERBATION Qualifiers: Asthma severity: unspecified severity Asthma persistence: unspecified Qualified Code(s): J45.901 - Unspecified asthma with (acute) exacerbation (2) Acute bronchitis Code(s): J20.9 - ACUTE BRONCHITIS, UNSPECIFIED (3) HIV (human immunodeficiency virus infection) Code(s): Z21 - ASYMPTOMATIC HUMAN IMMUNODEFICIENCY VIRUS INFECTION STATUS (4) Obesity Code(s): E66.9 - OBESITY, UNSPECIFIED Qualifiers: Obesity type: unspecified obesity type Obesity classification: adult class 3 (BMI >= 40) Serious obesity comorbidity presence: unspecified whether serious comorbidity present Body mass index: BMI 60.0-69.9 Qualified Code(s) : E66.9 - Obesity, unspecified; Z68.44 - Body mass index (BMI) 60.0-69.9, adult (5) Sleep apnea, obstructive Code(s): G47.33 - OBSTRUCTIVE SLEEP APNEA (ADULT) (PEDIATRIC) Assessment/Plan Acute Asthma Exacerbation Acute Bronchitis HIV DM Morbid Obesity Obstructive Sleep Apnea - mucomyst with albuterol nebs - spiriva - singulair - inhaled bronchodilators standing and PRN - monitor peak flow - discussed BiPAP at night - will give short course of terbutaline - empiric antibiotics - outpt PFTs, allergy testing, IgE level, RAST when off steroids - DVT prophylaxis DR GREENWOOD
--- NOTE | 2017-11-14 15:07 | PN ---
Teaching Attending Note Name of Resident: Luz Wagoner ATTENDING PHYSICIAN STATEMENT I saw and evaluated the patient. I reviewed the resident's note and discussed the case with the resident. I agree with the resident's findings and plan as documented with exceptions below. SUBJECTIVE: patient seen and examined. Breathing improved. no new concerns. OBJECTIVE: Vital Signs Period Temp Pulse Resp BP Sys/So Pulse Ox Last 24 Hr 97.6 F-97.7 F 75-84 20-24 115-154/67-99 98-98 Intake & Output 11/11/17 11/12/17 11/13/17 11/14/17 23:59 23:59 23:59 23:59 Intake Total 1348 1763 535 Output Total 1 Balance 1347 1763 535 Weight 339 lb General: sitting in chair in no acute distress, improved tachypnea, able to speak in full sentences Chest: upper chest wheezing, markedly improved air entry all over Abdomen:Soft, obese Extremities; unchanged LE pitting edema Home Medications Medication Instructions Recorded Albuterol 0.083% Nebulizer Rach 1 amp NEB Q4H PRN #3 amp 08/07/16 [Ventolin 0.083% Nebulizer Soln -] Elviteg/Cob/Emtri/Tenof Alafen 1 tab PO DAILY 02/19/17 [Genvoya (Non-Formulary)] Budesonide/Formeterol Fumarate 2 inh PO BID 02/20/17 [SYMBICORT 160/4.5mcg -] Amoxicillin 500mg Capsule - 1,000 mg PO BID 11/10/17 Clarithromycin 500 mg PO BID 11/10/17 Pantoprazole Sodium 40 mg PO DAILY 11/10/17 Active Medications Acetylcysteine (Mucomyst 20 Oral / Inh Use Only*) 200 mg NEB RQID KAREN Last Admin: 11/14/17 12:14 Dose: 200 mg Albuterol Sulfate (Ventolin 0.083% Nebulizer Soln -) 1 amp NEB Q4H PRN PRN Reason: SHORTNESS OF BREATH Last Admin: 11/12/17 02:32 Dose: 1 amp Albuterol Sulfate (Ventolin 0.083% Nebulizer Soln -) 1 amp NEB RQID KAREN Last Admin: 11/14/17 12:14 Dose: 1 amp Budesonide/Formoterol Fumarate (Symbicort 160/4.5mcg -) 2 puff IH BID [facility] Last Admin: 11/14/17 09:52 Dose: 2 puff Heparin Sodium (Porcine) (Heparin -) 5,000 unit SQ TID [facility] Last Admin: 11/14/17 14:50 Dose: 5,000 unit Azithromycin 500 mg/ Dextrose 250 mls @ 250 mls/hr IVPB DAILY [facility] Last Admin: 11/14/17 11:21 Dose: 250 mls/hr Ceftriaxone Sodium 2 gm/ (Sodium Chloride) 100 mls @ 100 mls/hr IVPB DAILY [facility] ; Protocol Last Admin: 11/14/17 11:16 Dose: 100 mls/hr Insulin Aspart (Novolog Vial Sliding Scale -) 1 vial SQ ACHS [facility]; Protocol Last Admin: 11/14/17 12:07 Dose: 6 units Insulin Detemir (Levemir Vial) 5 units SQ HS [facility] Methylprednisolone Sodium Succinate (Solu-Medrol -) 60 mg IVPUSH Q6H-IV [facility] Montelukast Sodium (Singulair -) 10 mg PO HS [facility] Last Admin: 11/13/17 22:07 Dose: 10 mg Non-Formulary Medication (Elviteg/Cob/Emtri/Tenof Alafen [Genvoya (Non-Formulary )]) 1 tab PO DAILY [facility] Last Admin: 11/14/17 09:43 Dose: 1 tab Pantoprazole Sodium (Protonix -) 40 mg PO BID [facility] Last Admin: 11/14/17 09:44 Dose: 40 mg Tiotropium [place] (Spiriva -) 1 puff IH DAILY [facility] Last Admin: 11/14/17 09:52 Dose: 1 cap Laboratory Results - last 24 hr 11/10/17 11/13/17 11/13/17 06:21 16:24 16:30 WBC 11.0 H RBC Hgb Hct MCV MCH MCHC RDW Plt Count MPV Absolute Neuts (auto) Absolute Lymphs (auto) 1.0 Neutrophils % Neutrophils % (Manual) Band Neutrophils % Lymphocytes % Lymphocytes % (Manual) Monocytes % Monocytes % (Manual) Eosinophils % Eosinophils % (Manual) Basophils % Basophils % (Manual) Myelocytes % (Man) Promyelocytes % (Man) Blast Cells % (Manual) Nucleated RBC % Lymphocytes 9 Metamyelocytes Nucleated RBCs TNP Hypochromia Platelet Estimate Polychromasia Poikilocytosis Basophilic Stippling Anisocytosis Microcytosis Macrocytosis Anticoagulation Therapy No Result Required. Puncture Site No Result Required. ABG pH 7.39 ABG pCO2 at Pt Temp 41.5 ABG pO2 at Pt Temp 78.7 L D ABG HCO3 24.3 ABG O2 Sat (Measured) 96.0 ABG O2 Content 14.6 L ABG Base Excess -0.2 Rik Test Positive O2 Delivery Device Nasal Oxygen Flow Rate Yes Vent Mode No Result Required. Vent Rate No Result Required. Mechanical Rate No Result Required. Pressure Support Vent No Result Required. Sodium Potassium Chloride Carbon Dioxide Anion Gap BUN Creatinine Creat Clearance w eGFR POC Glucometer 241 Random Glucose Calcium Phosphorus Magnesium Total Bilirubin AST ALT Alkaline Phosphatase Total Protein Albumin Absolute CD3 Count 442 L % CD3+ Lymphocytes 44.2 L Absolute CD4 [place] 192 L % CD4+ Lymphocyte 19.2 L CD4/CD8 Ratio 0.74 L % CD8+ Lymphocyte 25.8 Absolute CD8 Count 258 11/13/17 11/14/17 11/14/17 22:02 06:30 06:30 WBC 15.4 H RBC 5.27 H Hgb 10.9 Hct 35.8 MCV 68.0 L MCH 20.8 L MCHC 30.5 L RDW 19.8 H Plt Count 371 MPV 7.7 Absolute Neuts (auto) 14.0 Absolute Lymphs (auto) Neutrophils % 90.8 H Neutrophils % (Manual) 77.6 Band Neutrophils % 1.1 Lymphocytes % 8.4 Lymphocytes % (Manual) 18.1 D Monocytes % 0.2 L D Monocytes % (Manual) 3 L D Eosinophils % 0.1 D Eosinophils % (Manual) 0.0 Basophils % 0.5 D Basophils % (Manual) 0.0 Myelocytes % (Man) 0 Promyelocytes % (Man) 0 Blast Cells % (Manual) 0 Nucleated RBC % 1 H Lymphocytes Metamyelocytes 0 Nucleated RBCs Hypochromia 1+ Platelet Estimate Normal Polychromasia 1+ Poikilocytosis 1+ Basophilic Stippling 1+ Anisocytosis 2+ Microcytosis 2+ Macrocytosis 0 Anticoagulation Therapy Puncture Site ABG pH ABG pCO2 at Pt Temp ABG pO2 at Pt Temp ABG HCO3 ABG O2 Sat (Measured) ABG O2 Content ABG Base Excess Rik Test O2 Delivery Device Oxygen Flow Rate Vent Mode Vent Rate Mechanical Rate Pressure Support Vent Sodium 140 Potassium 4.0 Chloride 104 Carbon Dioxide 28 Anion Gap 8 BUN 16 Creatinine 1.0 Creat Clearance w eGFR 59.96 POC Glucometer 350 Random Glucose 287 H Calcium 8.8 Phosphorus 2.5 Magnesium 2.7 H Total Bilirubin 0.1 L AST 17 ALT 29 Alkaline Phosphatase 58 Total Protein 6.9 Albumin 3.3 L Absolute CD3 Count % CD3+ Lymphocytes Absolute CD4 [place] % CD4+ Lymphocyte CD4/CD8 Ratio % CD8+ Lymphocyte Absolute CD8 Count 11/14/17 11/14/17 06:36 11:40 WBC RBC Hgb Hct MCV MCH MCHC RDW Plt Count MPV Absolute Neuts (auto) Absolute Lymphs (auto) Neutrophils % Neutrophils % (Manual) Band Neutrophils % Lymphocytes % Lymphocytes % (Manual) Monocytes % Monocytes % (Manual) Eosinophils % Eosinophils % (Manual) Basophils % Basophils % (Manual) Myelocytes % (Man) Promyelocytes % (Man) Blast Cells % (Manual) Nucleated RBC % Lymphocytes Metamyelocytes Nucleated RBCs Hypochromia Platelet Estimate Polychromasia Poikilocytosis Basophilic Stippling Anisocytosis Microcytosis Macrocytosis Anticoagulation Therapy Puncture Site ABG pH ABG pCO2 at Pt Temp ABG pO2 at Pt Temp ABG HCO3 ABG O2 Sat (Measured) ABG O2 Content ABG Base Excess Rik Test O2 Delivery Device Oxygen Flow Rate Vent Mode Vent Rate Mechanical Rate Pressure Support Vent Sodium Potassium Chloride Carbon Dioxide Anion Gap BUN Creatinine Creat Clearance w eGFR POC Glucometer 269 261 Random Glucose Calcium Phosphorus Magnesium Total Bilirubin AST ALT Alkaline Phosphatase Total Protein Albumin Absolute CD3 Count % CD3+ Lymphocytes Absolute CD4 [place] % CD4+ Lymphocyte CD4/CD8 Ratio % CD8+ Lymphocyte Absolute CD8 Count CT chest results reviewed ASSESSMENT AND PLAN: 47yo F wtih PMH morbid obesity, asthma, HIV and anemia, H pylori gastritis on tx admitted with acute asthma exacerbation -Acute asthma exacerbation -Possible RLL CAP -?Right heart dysfunction -Morbid obesity -PUMA, non compliant with CPAP -HIV on HAART -H. pylori gastritis on triple therapy -Microcytic anemia (pror history of IV iron and intolerence to PO iron reportedly) -Pre-diabetes, A1c 6.6 Plan: Improved, slowly taper solumedrol 60 mg IV q26h. Pulmonary input appreciated. mucomyst/symbicort/terbutaline. ABG noted Tolerating nightly bipap, continue. LE duplex neg. Agree, current exam and findings low suspicion for PE. 2D echo noted, limited study. ISS, diabetic diet and counseling. Diabetic education. Add levemir 5 units hs. ID consulted, input appreciated. Ceftriaxone/azithromycin day 3/5. ON triple therapy, continue PPI BID (hold ampicillin/clarithromycin given above) . last day today. Continue PPI BID while on high dose steroids. Continue HAART. DVTPPx with heparin Dispo pending clinical improvement. Plan discussed with patient in detail, all questions answered.
--- NOTE | 2017-11-14 18:10 | PN ---
Physical Exam: SUBJECTIVE: Patient seen and examined sitting in her chair. No new complaints. Denies fevers, chills, chest pain, SOB, vomiting, diarrhea, constipation. OBJECTIVE: Vital Signs Period Temp Pulse Resp BP Sys/So Pulse Ox Last 24 Hr 97.6 F-97.7 F 75-84 22-24 115-145/69-99 98-98 GENERAL: The patient is awake, alert, and fully oriented, in no acute distress. LUNGS: Breath sounds equal, Diffuse Upper chest wheezing heard HEART: Regular rate and rhythm, S1, S2 without murmur, rub or gallop. ABDOMEN: Obese, Soft, nontender, nondistended, normoactive bowel sounds EXTREMITIES: 2+ Pitting Edema Laboratory Results - last 24 hr 11/10/17 11/13/17 11/14/17 06:21 22:02 06:30 WBC 11.0 H 15.4 H RBC 5.27 H Hgb 10.9 Hct 35.8 MCV 68.0 L MCH 20.8 L MCHC 30.5 L RDW 19.8 H Plt Count 371 MPV 7.7 Absolute Neuts (auto) 14.0 Absolute Lymphs (auto) 1.0 Neutrophils % 90.8 H Neutrophils % (Manual) 77.6 Band Neutrophils % 1.1 Lymphocytes % 8.4 Lymphocytes % (Manual) 18.1 D Monocytes % 0.2 L D Monocytes % (Manual) 3 L D Eosinophils % 0.1 D Eosinophils % (Manual) 0.0 Basophils % 0.5 D Basophils % (Manual) 0.0 Myelocytes % (Man) 0 Promyelocytes % (Man) 0 Blast Cells % (Manual) 0 Nucleated RBC % 1 H Lymphocytes 9 Metamyelocytes 0 Nucleated RBCs TNP Hypochromia 1+ Platelet Estimate Normal Polychromasia 1+ Poikilocytosis 1+ Basophilic Stippling 1+ Anisocytosis 2+ Microcytosis 2+ Macrocytosis 0 Sodium Potassium Chloride Carbon Dioxide Anion Gap BUN Creatinine Creat Clearance w eGFR POC Glucometer 350 Random Glucose Calcium Phosphorus Magnesium Total Bilirubin AST ALT Alkaline Phosphatase Total Protein Albumin Absolute CD3 Count 442 L % CD3+ Lymphocytes 44.2 L Absolute CD4 [place] 192 L % CD4+ Lymphocyte 19.2 L CD4/CD8 Ratio 0.74 L % CD8+ Lymphocyte 25.8 Absolute CD8 Count 258 11/14/17 11/14/17 11/14/17 06:30 06:36 11:40 WBC RBC Hgb Hct MCV MCH MCHC RDW Plt Count MPV Absolute Neuts (auto) Absolute Lymphs (auto) Neutrophils % Neutrophils % (Manual) Band Neutrophils % Lymphocytes % Lymphocytes % (Manual) Monocytes % Monocytes % (Manual) Eosinophils % Eosinophils % (Manual) Basophils % Basophils % (Manual) Myelocytes % (Man) Promyelocytes % (Man) Blast Cells % (Manual) Nucleated RBC % Lymphocytes Metamyelocytes Nucleated RBCs Hypochromia Platelet Estimate Polychromasia Poikilocytosis Basophilic Stippling Anisocytosis Microcytosis Macrocytosis Sodium 140 Potassium 4.0 Chloride 104 Carbon Dioxide 28 Anion Gap 8 BUN 16 Creatinine 1.0 Creat Clearance w eGFR 59.96 POC Glucometer 269 261 Random Glucose 287 H Calcium 8.8 Phosphorus 2.5 Magnesium 2.7 H Total Bilirubin 0.1 L AST 17 ALT 29 Alkaline Phosphatase 58 Total Protein 6.9 Albumin 3.3 L Absolute CD3 Count % CD3+ Lymphocytes Absolute CD4 [place] % CD4+ Lymphocyte CD4/CD8 Ratio % CD8+ Lymphocyte Absolute CD8 Count 11/14/17 16:56 WBC RBC Hgb Hct MCV MCH MCHC RDW Plt Count MPV Absolute Neuts (auto) Absolute Lymphs (auto) Neutrophils % Neutrophils % (Manual) Band Neutrophils % Lymphocytes % Lymphocytes % (Manual) Monocytes % Monocytes % (Manual) Eosinophils % Eosinophils % (Manual) Basophils % Basophils % (Manual) Myelocytes % (Man) Promyelocytes % (Man) Blast Cells % (Manual) Nucleated RBC % Lymphocytes Metamyelocytes Nucleated RBCs Hypochromia Platelet Estimate Polychromasia Poikilocytosis Basophilic Stippling Anisocytosis Microcytosis Macrocytosis Sodium Potassium Chloride Carbon Dioxide Anion Gap BUN Creatinine Creat Clearance w eGFR POC Glucometer 331 Random Glucose Calcium Phosphorus Magnesium Total Bilirubin AST ALT Alkaline Phosphatase Total Protein Albumin Absolute CD3 Count % CD3+ Lymphocytes Absolute CD4 [place] % CD4+ Lymphocyte CD4/CD8 Ratio % CD8+ Lymphocyte Absolute CD8 Count Active Medications Acetylcysteine (Mucomyst 20 Oral / Inh Use Only*) 200 mg NEB RQID KAREN Last Admin: 11/14/17 20:42 Dose: 200 mg Albuterol Sulfate (Ventolin 0.083% Nebulizer Soln -) 1 amp NEB Q4H PRN PRN Reason: SHORTNESS OF BREATH Last Admin: 11/12/17 02:32 Dose: 1 amp Albuterol Sulfate (Ventolin 0.083% Nebulizer Soln -) 1 amp NEB RQID [facility] Last Admin: 11/14/17 20:42 Dose: 1 amp Budesonide/Formoterol Fumarate (Symbicort 160/4.5mcg -) 2 puff IH BID [facility] Last Admin: 11/14/17 21:25 Dose: 2 puff Heparin Sodium (Porcine) (Heparin -) 5,000 unit SQ TID [facility] Last Admin: 11/14/17 21:24 Dose: 5,000 unit Azithromycin 500 mg/ Dextrose 250 mls @ 250 mls/hr IVPB DAILY [facility] Last Admin: 11/14/17 11:21 Dose: 250 mls/hr Ceftriaxone Sodium 2 gm/ (Sodium Chloride) 100 mls @ 100 mls/hr IVPB DAILY [facility] ; Protocol Last Admin: 11/14/17 11:16 Dose: 100 mls/hr Insulin Aspart (Novolog Vial Sliding Scale -) 1 vial SQ ACHS [facility]; Protocol Last Admin: 11/14/17 22:03 Dose: 6 units Insulin Detemir (Levemir Vial) 5 units SQ HS [facility] Last Admin: 11/14/17 22:02 Dose: 5 units Methylprednisolone Sodium Succinate (Solu-Medrol -) 60 mg IVPUSH Q6H-IV [facility] Last Admin: 11/14/17 21:24 Dose: 60 mg Montelukast Sodium (Singulair -) 10 mg PO HS [facility] Last Admin: 11/14/17 21:25 Dose: 10 mg Non-Formulary Medication (Elviteg/Cob/Emtri/Tenof Alafen [Genvoya (Non-Formulary )]) 1 tab PO DAILY [facility] Last Admin: 11/14/17 09:43 Dose: 1 tab Pantoprazole Sodium (Protonix -) 40 mg PO BID [facility] Last Admin: 11/14/17 21:25 Dose: 40 mg Tiotropium [place] (Spiriva -) 1 puff IH DAILY [facility] Last Admin: 11/14/17 09:52 Dose: 1 cap ASSESSMENT/PLAN: Patient is a 47y/o F with PMHx of recurrent asthma exacerbations and hospitalizations, (never intubated), DM, HIV (on genvoya), anemia and chronic epigastric pain, presenting to ER with worsening SOB at rest for past 2 days 1. Acute asthma exacerbation - Decreased SoluMedrol to 60 mg IVPUSH Q6H - Continue Azithromycin and Ceftriaxone (Day 5) - Continue Duonebs Q4H, Symbicort 2 puffs bid - Supplemental oxygen as needed to maintain oxygen saturation - Peak flow measurement - Pulmonary consulted, appreciated recs - ABG - CT Chest pending - 2D Echo pending - Continue Bipap HS 2. Microcytic anemia - MCV: 67.8 - Iron studies pending 3. HIV - Cont genovya - CD4 count - viral load 4. DM - ISS, BGM - A1c: 6.6% - Diabetic diet - Continue Insulin Novolog Sliding Scale SQ ACHS - Continue Insulin Levemir 5 units SQ HS 5. H. Pylori - Continue Triple therapy, substitute Azithromycin for Clartithromycin, Hold ampicillin - Finished tx today (11/14) 6. FEN - No fluids indicated - Lytes WNL - Diabetic/sodium restricted diet 7. PPx - Heparin 5000 TID SQ - PPI while on steroids Visit type - Emergency Visit Emergency Visit: Yes ED Registration Date: 11/10/17 Care time: The patient presented to the Emergency Department on the above date and was hospitalized for further evaluation of their emergent condition. - New Patient This patient is new to me today: No - Critical Care Critical Care patient: No
[2017-11-14] MEDS ORDERED: TERBUTALINE SULFATE 2.5 MG TABLET PO ONE (18:24)
[2017-11-14] MEDS: MONTELUKAST NA 10 MG TABLET PO SCH (21:25)
[2017-11-14] MEDS: INSULIN (LEVEMIR) 100 UNITS/ML UNITS SQ SCH (22:02)
[2017-11-15] MEDS: methylPREDNISolone NA SUCC 125 MG/2 ML VIAL IVPUSH SCH ×4 (03:05→21:14)
[2017-11-15] MEDS: HEPARIN NA (PORCINE) 5,000 UNITS/ML 1ML VIAL SQ SCH ×3 (06:01→21:14)
[2017-11-15] MEDS: INSULIN SLIDING SCALE (NOVOLOG) 1 VIAL SQ SCH ×4 (06:02→21:15)
[2017-11-15] MEDS ORDERED: INSULIN (NOVOLOG) ASPART 100 UNITS/ML 10ML VIAL ONE ×2 (06:15→19:55)
[2017-11-15 07:19] LABS: BASO % 0.4 % (0-2.0); EOS % 0.1 % (0-4.5); HEMATOCRIT 33.7 % (32.4-45.2); HEMOGLOBIN 10.4 GM/dL (10.7-15.3); LYMPH % 8.8 % (8-40); MCH 20.9 pg (25.7-33.7); MEAN CELL VOLUME 67.5 fl (80-96); MEAN PLT VOLUME 7.8 fl (7.5-11.1); MONO % 3.5 % (3.8-10.2); NEUT % 87.2 % (42.8-82.8); PLATELET COUNT 350 K/MM3 (134-434); RBC 4.98 M/mm3 (3.60-5.2); RDW 19.5 % (11.6-15.6); WHITE BLOOD COUNT 15.9 K/mm3 (4.0-10.0)
[2017-11-15] MEDS: ACETYLCYSTEINE 20% 200MG/ML 4 ML VIAL *FOR ORAL / INH USE ONLY NEB SCH ×4 (08:00→20:15)
[2017-11-15] MEDS: ALBUTEROL SO4 0.083% IH SOL 2.5 MG/3 ML VIAL.NEB. NEB SCH ×4 (08:00→20:15)
--- NOTE | 2017-11-15 08:51 | PN ---
Teaching Attending Note Name of Resident: Luz Wagoner ATTENDING PHYSICIAN STATEMENT I saw and evaluated the patient. I reviewed the resident's note and discussed the case with the resident. I agree with the resident's findings and plan as documented as exceptions below. SUBJECTIVE: Patient seen and examined. breathing with some improvement, still short of breath with minimal activity. OBJECTIVE: Vital Signs Period Temp Pulse Resp BP Sys/So Pulse Ox Last 24 Hr 97.5 F-97.7 F 69-84 20-24 115-146/66-99 98-98 Intake & Output 11/12/17 11/13/17 11/14/17 11/15/17 23:59 23:59 23:59 23:59 Intake Total 1348 1763 1475 Output Total 1 2 Balance 1347 1763 1475 -2 General: sitting in chair, audible wheezing with mild use of acessory muscles of respiration, able to talk in full sentences Chest: improved air entry, scattered wheezing. Extremities: pedal edema, overall unchanged Home Medications Medication Instructions Recorded Albuterol 0.083% Nebulizer Rach 1 amp NEB Q4H PRN #3 amp 08/07/16 [Ventolin 0.083% Nebulizer Soln -] Elviteg/Cob/Emtri/Tenof Alafen 1 tab PO DAILY 02/19/17 [Genvoya (Non-Formulary)] Budesonide/Formeterol Fumarate 2 inh PO BID 02/20/17 [SYMBICORT 160/4.5mcg -] Amoxicillin 500mg Capsule - 1,000 mg PO BID 11/10/17 Clarithromycin 500 mg PO BID 11/10/17 Pantoprazole Sodium 40 mg PO DAILY 11/10/17 Active Medications Acetylcysteine (Mucomyst 20 Oral / Inh Use Only*) 200 mg NEB RQID [facility] Last Admin: 11/14/17 20:42 Dose: 200 mg Albuterol Sulfate (Ventolin 0.083% Nebulizer Soln -) 1 amp NEB Q4H PRN PRN Reason: SHORTNESS OF BREATH Last Admin: 11/12/17 02:32 Dose: 1 amp Albuterol Sulfate (Ventolin 0.083% Nebulizer Soln -) 1 amp NEB RQID [facility] Last Admin: 11/14/17 20:42 Dose: 1 amp Budesonide/Formoterol Fumarate (Symbicort 160/4.5mcg -) 2 puff IH BID [facility] Last Admin: 11/14/17 21:25 Dose: 2 puff Heparin Sodium (Porcine) (Heparin -) 5,000 unit SQ TID [facility] Last Admin: 11/15/17 06:01 Dose: 5,000 unit Azithromycin 500 mg/ Dextrose 250 mls @ 250 mls/hr IVPB DAILY [facility] Last Admin: 11/14/17 11:21 Dose: 250 mls/hr Ceftriaxone Sodium 2 gm/ (Sodium Chloride) 100 mls @ 100 mls/hr IVPB DAILY [facility] ; Protocol Last Admin: 11/14/17 11:16 Dose: 100 mls/hr Insulin Aspart (Novolog Vial Sliding Scale -) 1 vial SQ ACHS [facility]; Protocol Last Admin: 11/15/17 06:02 Dose: 4 units Insulin Detemir (Levemir Vial) 5 units SQ HS [facility] Last Admin: 11/14/17 22:02 Dose: 5 units Methylprednisolone Sodium Succinate (Solu-Medrol -) 60 mg IVPUSH Q6H-IV [facility] Last Admin: 11/15/17 03:05 Dose: 60 mg Montelukast Sodium (Singulair -) 10 mg PO HS [facility] Last Admin: 11/14/17 21:25 Dose: 10 mg Non-Formulary Medication (Elviteg/Cob/Emtri/Tenof Alafen [Genvoya (Non-Formulary )]) 1 tab PO DAILY [facility] Last Admin: 11/14/17 09:43 Dose: 1 tab Pantoprazole Sodium (Protonix -) 40 mg PO BID [facility] Last Admin: 11/14/17 21:25 Dose: 40 mg Tiotropium [place] (Spiriva -) 1 puff IH DAILY [facility] Last Admin: 11/14/17 09:52 Dose: 1 cap Laboratory Results - last 24 hr 11/14/17 11/14/17 11/14/17 06:30 11:40 16:56 WBC RBC Hgb Hct MCV MCH MCHC RDW Plt Count MPV Absolute Neuts (auto) Neutrophils % Neutrophils % (Manual) 77.6 Band Neutrophils % 1.1 Lymphocytes % Lymphocytes % (Manual) 18.1 D Monocytes % Monocytes % (Manual) 3 L D Eosinophils % Eosinophils % (Manual) 0.0 Basophils % Basophils % (Manual) 0.0 Myelocytes % (Man) 0 Promyelocytes % (Man) 0 Blast Cells % (Manual) 0 Nucleated RBC % 1 H Metamyelocytes 0 Hypochromia 1+ Platelet Estimate Normal Polychromasia 1+ Poikilocytosis 1+ Basophilic Stippling 1+ Anisocytosis 2+ Microcytosis 2+ Macrocytosis 0 POC Glucometer 261 331 11/14/17 11/15/17 11/15/17 21:58 05:59 06:30 WBC 15.9 H RBC 4.98 Hgb 10.4 L Hct 33.7 MCV 67.5 L MCH 20.9 L MCHC 31.0 L RDW 19.5 H Plt Count 350 MPV 7.8 Absolute Neuts (auto) 13.9 Neutrophils % 87.2 H Neutrophils % (Manual) Band Neutrophils % Lymphocytes % 8.8 Lymphocytes % (Manual) Monocytes % 3.5 L D Monocytes % (Manual) Eosinophils % 0.1 Eosinophils % (Manual) Basophils % 0.4 Basophils % (Manual) Myelocytes % (Man) Promyelocytes % (Man) Blast Cells % (Manual) Nucleated RBC % 0 Metamyelocytes Hypochromia Platelet Estimate Polychromasia Poikilocytosis Basophilic Stippling Anisocytosis Microcytosis Macrocytosis POC Glucometer 286 230 Microbiology 11/13/17 18:20 Urine For Antigen Detection Legionella Antigen - Final 11/13/17 18:20 Urine For Antigen Detection Streptococcus pneumoniae Antigen (M - Final ASSESSMENT AND PLAN: 47yo F wtih PMH morbid obesity, asthma, HIV and anemia, H pylori gastritis on tx admitted with acute asthma exacerbation -Acute asthma exacerbation -Possible RLL CAP -?Right heart dysfunction -Morbid obesity -PUMA, non compliant with CPAP -HIV on HAART -H. pylori gastritis on triple therapy -Microcytic anemia (pror history of IV iron and intolerence to PO iron reportedly) -Pre-diabetes, A1c 6.6 Plan: Improved, slowly taper solumedrol 60 mg IV q6h. Pulmonary input appreciated. mucomyst/symbicort/terbutaline. ABG noted Tolerating nightly bipap, continue. LE duplex neg. Agree, current exam and findings low suspicion for PE. 2D echo noted, limited study. ISS, diabetic diet and counseling. Diabetic education. Increase levemir to 10 units hs. ID consulted, input appreciated. Ceftriaxone/azithromycin day 5/5, monitor off antibiotics. CD4 19, ?Compliance, ID input noted, last CD4 900. Continue HAARt and outpatient follow up. ON triple therapy, continue PPI BID (hold ampicillin/clarithromycin given above) . completed 11/14. Continue PPI BID while on high dose steroids. DVTPPx with heparin Dispo pending clinical improvement. Plan discussed with patient in detail, all questions answered.
[2017-11-15] MEDS ORDERED: SODIUM CHLORIDE 100 ML IVPB ONE (09:02)
[2017-11-15] MEDS: TIOTROPIUM BROMIDE 18 MCG CAPSULES IH SCH (09:04)
[2017-11-15] MEDS: BUDESONIDE/FORMETEROL FUMARATE 160/4.5 mcg INHALER IH SCH ×2 (09:04→21:29)
[2017-11-15] MEDS: CEFTRIAXONE 2 GM in SODIUM CHLORIDE 100 ML IVPB SCH (09:06)
[2017-11-15] MEDS: PATIENT'S OWN MEDICATION (NON-FORMULARY) (Elviteg/Cob/Emtri/Tenof Alafen [Genvoya (Non-For PO SCH (09:09)
[2017-11-15] MEDS: AZITHROMYCIN IVPB 500 MG in DEXTROSE 5%-WATER - 250 ML IVPB SCH (09:09)
[2017-11-15] MEDS: PANTOPRAZOLE 40 MG TABLET (FP) PO SCH ×2 (09:09→21:15)
[2017-11-15 11:09] LABS: ANISOCYTOSIS 1+; MACROCYTOSIS 0; OVALOCYTE 1+; PLATELET ESTIMATE NORMAL
--- NOTE | 2017-11-15 11:24 | PN ---
Progress Note, Physician Chief Complaint: ID Breathing better Solumdedrol - Current Medication List Current Medications: Active Medications Acetylcysteine (Mucomyst 20 Oral / Inh Use Only*) 200 mg NEB RQID [facility] Last Admin: 11/15/17 08:00 Dose: 200 mg Albuterol Sulfate (Ventolin 0.083% Nebulizer Soln -) 1 amp NEB Q4H PRN PRN Reason: SHORTNESS OF BREATH Last Admin: 11/12/17 02:32 Dose: 1 amp Albuterol Sulfate (Ventolin 0.083% Nebulizer Soln -) 1 amp NEB RQID [facility] Last Admin: 11/15/17 08:00 Dose: 1 amp Budesonide/Formoterol Fumarate (Symbicort 160/4.5mcg -) 2 puff IH BID [facility] Last Admin: 11/15/17 09:04 Dose: 2 puff Heparin Sodium (Porcine) (Heparin -) 5,000 unit SQ TID [facility] Last Admin: 11/15/17 06:01 Dose: 5,000 unit Insulin Aspart (Novolog Vial Sliding Scale -) [address] [facility]; Protocol Last Admin: 11/15/17 06:02 Dose: 4 units Insulin Detemir (Levemir Vial) 5 units SQ [facility] Last Admin: 11/14/17 22:02 Dose: 5 units Methylprednisolone Sodium Succinate (Solu-Medrol -) 60 mg IVPUSH Q6H-IV [facility] Last Admin: 11/15/17 09:05 Dose: 60 mg Montelukast Sodium (Singulair -) 10 mg PO HS [facility] Last Admin: 11/14/17 21:25 Dose: 10 mg Non-Formulary Medication (Elviteg/Cob/Emtri/Tenof Alafen [Genvoya (Non-Formulary )]) 1 tab PO DAILY [facility] Last Admin: 11/15/17 09:09 Dose: 1 tab Pantoprazole Sodium (Protonix -) 40 mg PO BID [facility] Last Admin: 11/15/17 09:09 Dose: 40 mg Tiotropium [place] (Spiriva -) 1 puff IH DAILY [facility] Last Admin: 11/15/17 09:04 Dose: 1 cap - Objective Vital Signs: Vital Signs Temperature 97.9 F 11/15/17 08:57 Pulse Rate 77 11/15/17 08:57 Respiratory Rate 22 11/15/17 08:57 Blood Pressure 125/81 11/15/17 08:57 O2 Sat by Pulse Oximetry (%) 98 11/15/17 01:55 Constitutional: Yes: Obese Neck: Yes: WNL, Supple Cardiovascular: Yes: Regular Rate and Rhythm, S1, S2 Respiratory: Yes: WNL, Regular, CTA Bilaterally. No: Wheezes Gastrointestinal: Yes: WNL, Normal Bowel Sounds, Soft. No: Tenderness, Tenderness, Epigastrium Labs: CBC, BMP 11/15/17 06:30 11/14/17 06:30 Assessment/Plan Laboratory Tests 11/10/17 11/14/17 11/15/17 06:21 06:30 06:30 WBC 15.9 H Hgb 10.4 L Plt Count 350 BUN 16 Creatinine 1.0 Absolute CD4 [place] 192 L Assessment Exacerbtion of asthma. HIV pos Has not been to office since FEB but we have T cells from May and they were almost 900 ! undectable 20 copies Has she been taking her meds ?? Plan Continue Genvoya and have her follow up in the next month or 2 Horace NICHOLSON
--- NOTE | 2017-11-15 11:29 | PN ---
Progress Note (short form) - Note Progress Note: PULMONARY Breathing slowly improving. Still cough and wheezing. Peak flow 250. Vital Signs Period Temp Pulse Resp BP Sys/So Pulse Ox Last 24 Hr 97.5 F-97.9 F 69-84 20-24 124-146/66-84 98-98 Gen: NAD in chair Heart: RRR Lung: bilateral rhonchi, wheezes Abd: soft, nontender, obese Ext: no edema CBC, BMP 11/15/17 06:30 11/14/17 06:30 Active Medications Acetylcysteine (Mucomyst 20 Oral / Inh Use Only*) 200 mg NEB RQID KAREN Last Admin: 11/15/17 08:00 Dose: 200 mg Albuterol Sulfate (Ventolin 0.083% Nebulizer Soln -) 1 amp NEB Q4H PRN PRN Reason: SHORTNESS OF BREATH Last Admin: 11/12/17 02:32 Dose: 1 amp Albuterol Sulfate (Ventolin 0.083% Nebulizer Soln -) 1 amp NEB RQID KAREN Last Admin: 11/15/17 08:00 Dose: 1 amp Budesonide/Formoterol Fumarate (Symbicort 160/4.5mcg -) 2 puff IH BID KAREN Last Admin: 11/15/17 09:04 Dose: 2 puff Heparin Sodium (Porcine) (Heparin -) 5,000 unit SQ TID KAREN Last Admin: 11/15/17 06:01 Dose: 5,000 unit Insulin Aspart (Novolog Vial Sliding Scale -) 1 vial SQ ACHS [facility]; Protocol Last Admin: 11/15/17 06:02 Dose: 4 units Insulin Detemir (Levemir Vial) 5 units SQ HS [facility] Last Admin: 11/14/17 22:02 Dose: 5 units Methylprednisolone Sodium Succinate (Solu-Medrol -) 60 mg IVPUSH Q6H-IV KAREN Last Admin: 11/15/17 09:05 Dose: 60 mg Montelukast Sodium (Singulair -) 10 mg PO HS [facility] Last Admin: 11/14/17 21:25 Dose: 10 mg Non-Formulary Medication (Elviteg/Cob/Emtri/Tenof Alafen [Genvoya (Non-Formulary )]) 1 tab PO DAILY KAREN Last Admin: 11/15/17 09:09 Dose: 1 tab Pantoprazole Sodium (Protonix -) 40 mg PO BID [facility] Last Admin: 11/15/17 09:09 Dose: 40 mg Tiotropium [place] (Spiriva -) 1 puff IH DAILY [facility] Last Admin: 11/15/17 09:04 Dose: 1 cap A/P Acute Asthma Exacerbation Acute Bronchitis HIV DM Morbid Obesity Obstructive Sleep Apnea - continue mucomyst/albuterol nebs - continue spiriva - singulair - inhaled bronchodilators standing and PRN - monitor peak flow - BiPAP at night and PRN during day - monitor off antibiotics - outpt PFTs, allergy testing, IgE level, RAST when off steroids - DVT prophylaxis Problem List - Problems (1) Asthma exacerbation Code(s): J45.901 - UNSPECIFIED ASTHMA WITH (ACUTE) EXACERBATION Qualifiers: Asthma severity: unspecified severity Asthma persistence: unspecified Qualified Code(s): J45.901 - Unspecified asthma with (acute) exacerbation (2) Acute bronchitis Code(s): J20.9 - ACUTE BRONCHITIS, UNSPECIFIED (3) HIV (human immunodeficiency virus infection) Code(s): Z21 - ASYMPTOMATIC HUMAN IMMUNODEFICIENCY VIRUS INFECTION STATUS (4) Obesity Code(s): E66.9 - OBESITY, UNSPECIFIED Qualifiers: Obesity type: unspecified obesity type Obesity classification: adult class 3 (BMI >= 40) Serious obesity comorbidity presence: unspecified whether serious comorbidity present Body mass index: BMI 60.0-69.9 Qualified Code(s) : E66.9 - Obesity, unspecified; Z68.44 - Body mass index (BMI) 60.0-69.9, adult (5) Sleep apnea, obstructive Code(s): G47.33 - OBSTRUCTIVE SLEEP APNEA (ADULT) (PEDIATRIC)
--- NOTE | 2017-11-15 19:03 | PN ---
Physical Exam: SUBJECTIVE: Patient seen and examined sitting in her chair. [place] chills, SOB and nausea overnight. Used bipap overnight. Today complains of itching in the folds below her breasts and stomach. Patient says last time she used steroids, she developed a fungal infection. Denies fevers, chest pain, vomiting, diarrhea, constipation. OBJECTIVE: Vital Signs Period Temp Pulse Resp BP Sys/So Pulse Ox Last 24 Hr 97.6 F-97.9 F 69-77 20-24 125-146/56-81 98-100 GENERAL: The patient is awake, alert, and fully oriented, in no acute distress. LUNGS: Breath sounds equal, Diffuse Upper chest wheezing heard, Use of accessory muscles HEART: Regular rate and rhythm, S1, S2 without murmur, rub or gallop. ABDOMEN: Obese, Soft, nontender, nondistended, normoactive bowel sounds EXTREMITIES: 2+ Pitting Edema SKIN: Warm, dry, without erythema, no rashes noted below in breast folds. + Stretch torres Laboratory Results - last 24 hr 11/14/17 11/15/17 11/15/17 21:58 05:59 06:30 WBC 15.9 H RBC 4.98 Hgb 10.4 L Hct 33.7 MCV 67.5 L MCH 20.9 L MCHC 31.0 L RDW 19.5 H Plt Count 350 MPV 7.8 Absolute Neuts (auto) 13.9 Neutrophils % 87.2 H Neutrophils % (Manual) 89.0 H Band Neutrophils % 0.0 Lymphocytes % 8.8 Lymphocytes % (Manual) 8.0 D Monocytes % 3.5 L D Monocytes % (Manual) 1 L Eosinophils % 0.1 Eosinophils % (Manual) 0.0 Basophils % 0.4 Basophils % (Manual) 0.0 Myelocytes % (Man) 0 Promyelocytes % (Man) 0 Blast Cells % (Manual) 0 Nucleated RBC % 0 Metamyelocytes 0 Hypochromia 2+ Platelet Estimate Normal Polychromasia 0 Poikilocytosis 1+ Anisocytosis 1+ Microcytosis 2+ Macrocytosis 0 Spherocytes 1+ Ovalocytes 1+ POC Glucometer 286 230 11/15/17 11:32 WBC RBC Hgb Hct MCV MCH MCHC RDW Plt Count MPV Absolute Neuts (auto) Neutrophils % Neutrophils % (Manual) Band Neutrophils % Lymphocytes % Lymphocytes % (Manual) Monocytes % Monocytes % (Manual) Eosinophils % Eosinophils % (Manual) Basophils % Basophils % (Manual) Myelocytes % (Man) Promyelocytes % (Man) Blast Cells % (Manual) Nucleated RBC % Metamyelocytes Hypochromia Platelet Estimate Polychromasia Poikilocytosis Anisocytosis Microcytosis Macrocytosis Spherocytes Ovalocytes POC Glucometer 272 Microbiology 11/13/17 18:20 Urine For Antigen Detection Legionella Antigen - Final 11/13/17 18:20 Urine For Antigen Detection Streptococcus pneumoniae Antigen (M - Final Active Medications Acetylcysteine (Mucomyst 20 Oral / Inh Use Only*) 200 mg NEB RQID KAREN Last Admin: 11/15/17 16:15 Dose: 200 mg Albuterol Sulfate (Ventolin 0.083% Nebulizer Soln -) 1 amp NEB Q4H PRN PRN Reason: SHORTNESS OF BREATH Last Admin: 11/12/17 02:32 Dose: 1 amp Albuterol Sulfate (Ventolin 0.083% Nebulizer Soln -) 1 amp NEB RQID KAREN Last Admin: 11/15/17 16:15 Dose: 1 amp Budesonide/Formoterol Fumarate (Symbicort 160/4.5mcg -) 2 puff IH BID KAREN Last Admin: 11/15/17 09:04 Dose: 2 puff Heparin Sodium (Porcine) (Heparin -) 5,000 unit SQ TID KAREN Last Admin: 11/15/17 14:00 Dose: 5,000 unit Insulin Aspart (Novolog Vial Sliding Scale -) 1 vial SQ ACHS [facility]; Protocol Last Admin: 11/15/17 17:32 Dose: 10 units Insulin Detemir (Levemir Vial) 5 units SQ HS [facility] Last Admin: 11/14/17 22:02 Dose: 5 units Methylprednisolone Sodium Succinate (Solu-Medrol -) 60 mg IVPUSH Q6H-IV KAREN Last Admin: 11/15/17 15:00 Dose: 60 mg Montelukast Sodium (Singulair -) 10 mg PO HS KAREN Last Admin: 11/14/17 21:25 Dose: 10 mg Non-Formulary Medication (Elviteg/Cob/Emtri/Tenof Alafen [Genvoya (Non-Formulary )]) 1 tab PO DAILY KAREN Last Admin: 11/15/17 09:09 Dose: 1 tab Pantoprazole Sodium (Protonix -) 40 mg PO BID [facility] Last Admin: 11/15/17 09:09 Dose: 40 mg Tiotropium [place] (Spiriva -) 1 puff IH DAILY [facility] Last Admin: 11/15/17 09:04 Dose: 1 cap ASSESSMENT/PLAN: Patient is a 47y/o F with PMHx of recurrent asthma exacerbations and hospitalizations, (never intubated), DM, HIV (on genvoya), anemia and chronic epigastric pain, presenting to ER with worsening SOB at rest for past 2 days 1. Acute asthma exacerbation - Continue SoluMedrol to 60 mg IVPUSH Q6H - Completed 5 day course of Azithromycin and Ceftriaxone - Continue Duonebs Q4H, Symbicort 2 puffs bid - Supplemental oxygen as needed to maintain oxygen saturation - Peak flow measurement - Pulmonary consulted, appreciated recs - ABG - CT Chest pending - 2D Echo pending - Continue Bipap HS 2. Microcytic anemia - MCV: 67.8 - Iron studies pending 3. HIV - Cont genovya - CD4 count - viral load 4. DM - ISS, BGM - A1c: 6.6% - Diabetic diet - Continue Insulin Novolog Sliding Scale SQ ACHS - Increase Insulin Levemir 10 units SQ HS 5. H. Pylori - Continue Triple therapy, substitute Azithromycin for Clartithromycin, Hold ampicillin - Finished tx (11/14) 6. FEN - No fluids indicated - Lytes WNL - Diabetic/sodium restricted diet 7. PPx - Heparin 5000 TID SQ - PPI while on steroids Visit type - Emergency Visit Emergency Visit: Yes ED Registration Date: 11/10/17 Care time: The patient presented to the Emergency Department on the above date and was hospitalized for further evaluation of their emergent condition. - New Patient This patient is new to me today: No - Critical Care Critical Care patient: No
[2017-11-15] MEDS: MONTELUKAST NA 10 MG TABLET PO SCH (21:14)
[2017-11-15] MEDS: INSULIN (LEVEMIR) 100 UNITS/ML UNITS SQ SCH (21:15)
[2017-11-16] MEDS: methylPREDNISolone NA SUCC 125 MG/2 ML VIAL IVPUSH SCH ×3 (03:00→15:47)
[2017-11-16] MEDS: INSULIN SLIDING SCALE (NOVOLOG) 1 VIAL SQ SCH ×4 (06:26→21:55)
[2017-11-16] MEDS: HEPARIN NA (PORCINE) 5,000 UNITS/ML 1ML VIAL SQ SCH ×3 (06:26→21:54)
[2017-11-16 07:55] LABS: BASO % 0.2 % (0-2.0); HEMATOCRIT 34.7 % (32.4-45.2); HEMOGLOBIN 10.7 GM/dL (10.7-15.3); MCH 20.6 pg (25.7-33.7); MCHC 30.7 g/dl (32.0-36.0); MEAN CELL VOLUME 67.1 fl (80-96); MONO % 3.3 % (3.8-10.2); NEUT % 87.5 % (42.8-82.8); PLATELET COUNT 344 K/MM3 (134-434); RBC 5.17 M/mm3 (3.60-5.2); RDW 19.6 % (11.6-15.6); WHITE BLOOD COUNT 17.1 K/mm3 (4.0-10.0)
[2017-11-16 08:16] LABS: ALBUMIN 3.2 g/dl (3.4-5.0); ANION GAP 7 (8-16); BLOOD UREA NITROGEN 17 mg/dL (7-18); CALCIUM 8.6 mg/dL (8.5-10.1); CHLORIDE 102 mmol/L (98-107); CO2 31 mmol/L (21-32); CREATININE 0.8 mg/dL (0.55-1.02); GLUCOSE,RANDOM 227 mg/dL (74-106); MAGNESIUM 2.7 mg/dL (1.8-2.4); POTASSIUM 4.2 mmol/L (3.5-5.1); SGOT/AST 19 U/L (15-37); SGPT/ALT 39 U/L (12-78); SODIUM 140 mmol/L (136-145)
[2017-11-16 08:18] LABS: ALK PHOS 51 U/L (45-117); BILIRUBIN,TOTAL 0.2 mg/dL (0.2-1.0); TOT PROT 6.5 g/dl (6.4-8.2)
[2017-11-16] MEDS: ACETYLCYSTEINE 20% 200MG/ML 4 ML VIAL *FOR ORAL / INH USE ONLY NEB SCH ×4 (08:44→20:50)
[2017-11-16] MEDS: ALBUTEROL SO4 0.083% IH SOL 2.5 MG/3 ML VIAL.NEB. NEB SCH ×4 (08:45→20:50)
[2017-11-16] MEDS ORDERED: PT OWN MED DRAWER 7, Y5N ONE ×3 (09:16→19:02)
[2017-11-16] MEDS: TIOTROPIUM BROMIDE 18 MCG CAPSULES IH SCH (09:27)
[2017-11-16] MEDS: PANTOPRAZOLE 40 MG TABLET (FP) PO SCH ×2 (09:27→21:50)
[2017-11-16] MEDS: BUDESONIDE/FORMETEROL FUMARATE 160/4.5 mcg INHALER IH SCH ×2 (09:27→21:51)
[2017-11-16] MEDS: PATIENT'S OWN MEDICATION (NON-FORMULARY) (Elviteg/Cob/Emtri/Tenof Alafen [Genvoya (Non-For PO SCH (09:28)
[2017-11-16] MEDS ORDERED: INSULIN (LEVEMIR) 100 UNITS/ML UNITS SQ SCH (10:30)
[2017-11-16 11:04] LABS: ANISOCYTOSIS 3+; MACROCYTOSIS 0; OVALOCYTE 1+; PLATELET ESTIMATE NORMAL; TARGET CELLS 1+
--- NOTE | 2017-11-16 13:24 | PN ---
Progress Note (short form) - Note Progress Note: PULMONARY PEAK FLOW 230 L/M VSS/AFEBRILE ANICTERIC DISTANT BREATH SOUNDS WITH SCATTERED B/L ANTERIOR/POSTERIOR END EXP WHEEZE S1S2 BS+ OBESE DEPENDANT EDEMA LABS/MEDS/NOTES IMAGES REVIEWED Acute Asthma Exacerbation Acute Bronchitis HIV DM Morbid Obesity Obstructive Sleep Apnea - mucomyst with albuterol nebs - spiriva - singulair - inhaled bronchodilators standing and PRN - monitor peak flow - BiPAP at night - empiric antibiotics - outpt PFTs, allergy testing, IgE level, RAST when off steroids - DVT proph Mitali MASON MD
--- NOTE | 2017-11-16 15:55 | PN ---
Teaching Attending Note Name of Resident: Luz Wagoner ATTENDING PHYSICIAN STATEMENT I saw and evaluated the patient. I reviewed the resident's note and discussed the case with the resident. I agree with the resident's findings and plan as documented with exceptions below. SUBJECTIVE: Patient seen and examined. breathing improved, feels 'thrush' is coming back, some minimal discomfort on swallowing. OBJECTIVE: Vital Signs Period Temp Pulse Resp BP Sys/So Pulse Ox Last 24 Hr 97.5 F-98.5 F 65-84 20-24 105-144/57-84 94-97 Intake & Output 11/13/17 11/14/17 11/15/17 11/16/17 23:59 23:59 23:59 23:59 Intake Total 1763 1475 1320 800 Output Total 3 Balance 1763 1475 1317 800 General: sitting in chair, audible wheezing but decreased use of acessory muscles of respiration Chest: upper airway expiratory wheezes, improved air entry otherwise with no wheezing Abdomen:Soft, obese, NT Extremities: unchanged pedal edema Home Medications Medication Instructions Recorded Albuterol 0.083% Nebulizer Rach 1 amp NEB Q4H PRN #3 amp 08/07/16 [Ventolin 0.083% Nebulizer Soln -] Elviteg/Cob/Emtri/Tenof Alafen 1 tab PO DAILY 02/19/17 [Genvoya (Non-Formulary)] Budesonide/Formeterol Fumarate 2 inh PO BID 02/20/17 [SYMBICORT 160/4.5mcg -] Amoxicillin 500mg Capsule - 1,000 mg PO BID 11/10/17 Clarithromycin 500 mg PO BID 11/10/17 Pantoprazole Sodium 40 mg PO DAILY 11/10/17 Active Medications Acetylcysteine (Mucomyst 20 Oral / Inh Use Only*) 200 mg NEB RQID KAREN Last Admin: 11/16/17 12:00 Dose: 200 mg Albuterol Sulfate (Ventolin 0.083% Nebulizer Soln -) 1 amp NEB Q4H PRN PRN Reason: SHORTNESS OF BREATH Last Admin: 11/12/17 02:32 Dose: 1 amp Albuterol Sulfate (Ventolin 0.083% Nebulizer Soln -) 1 amp NEB RQID KAREN Last Admin: 11/16/17 12:00 Dose: 1 amp Budesonide/Formoterol Fumarate (Symbicort 160/4.5mcg -) 2 puff IH BID [facility] Last Admin: 11/16/17 09:27 Dose: 2 puff Fluconazole (Diflucan -) 100 mg PO DAILY [facility] Heparin Sodium (Porcine) (Heparin -) 5,000 unit SQ TID [facility] Last Admin: 11/16/17 13:56 Dose: 5,000 unit Insulin Aspart (Novolog Vial Sliding Scale -) 1 vial SQ ACHS [facility]; Protocol Last Admin: 11/16/17 12:21 Dose: 4 units Insulin Detemir (Levemir Vial) 10 units SQ HS [facility] Methylprednisolone Sodium Succinate (Solu-Medrol -) 40 mg IVPUSH Q6H-IV KAREN Montelukast Sodium (Singulair -) 10 mg PO HS [facility] Last Admin: 11/15/17 21:14 Dose: 10 mg Non-Formulary Medication (Elviteg/Cob/Emtri/Tenof Alafen [Genvoya (Non-Formulary )]) 1 tab PO DAILY [facility] Last Admin: 11/16/17 09:28 Dose: 1 tab Pantoprazole Sodium (Protonix -) 40 mg PO BID [facility] Last Admin: 11/16/17 09:27 Dose: 40 mg Tiotropium [place] (Spiriva -) 1 puff IH DAILY [facility] Last Admin: 11/16/17 09:27 Dose: 1 cap Laboratory Results - last 24 hr 11/15/17 11/15/17 11/16/17 16:18 21:08 06:22 WBC RBC Hgb Hct MCV MCH MCHC RDW Plt Count MPV Absolute Neuts (auto) Neutrophils % Neutrophils % (Manual) Band Neutrophils % Lymphocytes % Lymphocytes % (Manual) Monocytes % Monocytes % (Manual) Eosinophils % Eosinophils % (Manual) Basophils % Basophils % (Manual) Myelocytes % (Man) Promyelocytes % (Man) Blast Cells % (Manual) Nucleated RBC % Metamyelocytes Hypochromia Platelet Estimate Polychromasia Poikilocytosis Anisocytosis Microcytosis Macrocytosis Target Cells Ovalocytes Sodium Potassium Chloride Carbon Dioxide Anion Gap BUN Creatinine Creat Clearance w eGFR POC Glucometer 449 259 222 Random Glucose Calcium Phosphorus Magnesium Total Bilirubin AST ALT Alkaline Phosphatase Total Protein Albumin 11/16/17 11/16/17 11/16/17 06:30 06:30 12:15 WBC 17.1 H RBC 5.17 Hgb 10.7 Hct 34.7 MCV 67.1 L MCH 20.6 L MCHC 30.7 L RDW 19.6 H Plt Count 344 MPV 8.0 Absolute Neuts (auto) 15.0 Neutrophils % 87.5 H Neutrophils % (Manual) 85.7 H Band Neutrophils % 0.0 Lymphocytes % 9.0 Lymphocytes % (Manual) 10.2 D Monocytes % 3.3 L Monocytes % (Manual) 3 L D Eosinophils % 0.0 D Eosinophils % (Manual) 0.0 Basophils % 0.2 Basophils % (Manual) 0.0 Myelocytes % (Man) 0 Promyelocytes % (Man) 0 Blast Cells % (Manual) 0 Nucleated RBC % 0 Metamyelocytes 0 Hypochromia 0 Platelet Estimate Normal Polychromasia 0 Poikilocytosis 1+ Anisocytosis 3+ Microcytosis 2+ Macrocytosis 0 Target Cells 1+ Ovalocytes 1+ Sodium 140 Potassium 4.2 Chloride 102 Carbon Dioxide 31 Anion Gap 7 L BUN 17 Creatinine 0.8 Creat Clearance w eGFR > 60 POC Glucometer 237 Random Glucose 227 H Calcium 8.6 Phosphorus 3.0 Magnesium 2.7 H Total Bilirubin 0.2 AST 19 ALT 39 Alkaline Phosphatase 51 Total Protein 6.5 Albumin 3.2 L Microbiology 11/14/17 06:45 Sputum - Expectorated Gram Stain - Final 11/14/17 06:45 Sputum - Expectorated Sputum Culture - Final NORMAL RESPIRATORY DEEP 11/13/17 18:20 Urine For Antigen Detection Legionella Antigen - Final 11/13/17 18:20 Urine For Antigen Detection Streptococcus pneumoniae Antigen (M - Final ASSESSMENT AND PLAN: 47yo F wtih PMH morbid obesity, asthma, HIV and anemia, H pylori gastritis on tx admitted with acute asthma exacerbation -Acute asthma exacerbation -Possible RLL CAP -Oral candidiasis +/- esophageal candidiasis -?Right heart dysfunction -Morbid obesity -PUMA, non compliant with CPAP -HIV on HAART -H. pylori gastritis on triple therapy -Microcytic anemia (pror history of IV iron and intolerence to PO iron reportedly) -Pre-diabetes, A1c 6.6 Plan: Improved, slowly taper solumedrol 40 mg IV q6h. Pulmonary input appreciated. mucomyst/symbicort/terbutaline. ABG noted Tolerating nightly bipap, continue. LE duplex neg. Agree, current exam and findings low suspicion for PE. 2D echo noted, limited study. Start fluconazole given recurrent oral candidiasis with dysphagia and CD4 < 200. ISS, diabetic diet and counseling. Diabetic education. Increase levemir to 10 units hs. ID consulted, input appreciated. s/p 5 days of Ceftriaxone/azithromycin day 5/5 , monitor off antibiotics. CD4 192, ID input noted, last CD4 900. Check viral load. May be a candidate for PCP prophylaxis, follow up with ID. Continue HAART. ON triple therapy, continue PPI BID (hold ampicillin/clarithromycin given above) . completed 11/14. Continue PPI BID while on high dose steroids. DVTPPx with heparin Dispo pending clinical improvement. Plan discussed with patient in detail, all questions answered.
[2017-11-16] MEDS ORDERED: FLUCONAZOLE 100 MG TABLET (UD) PO ONE (15:57)
[2017-11-16] MEDS ORDERED: INSULIN (NOVOLOG) ASPART 100 UNITS/ML 10ML VIAL ONE (17:31)
--- NOTE | 2017-11-16 18:13 | PN ---
Physical Exam: SUBJECTIVE: Patient seen and examined sitting in her chair. Continues to feel cough overnight however less SOB. Did not use her bipap overnight. Continues to feel her thrush is coming back. Denies fevers, chest pain, vomiting, diarrhea, constipation. OBJECTIVE: Vital Signs Period Temp Pulse Resp BP Sys/So Pulse Ox Last 24 Hr 97.5 F-98.5 F 65-84 20-24 105-144/57-84 94-97 GENERAL: The patient is awake, alert, and fully oriented, in no acute distress. LUNGS: Breath sounds equal, Diffuse Upper chest wheezing heard HEART: Regular rate and rhythm, S1, S2 without murmur, rub or gallop. ABDOMEN: Obese, Soft, nontender, nondistended, normoactive bowel sounds EXTREMITIES: 2+ Pitting Edema SKIN: No Rash under breast folds Laboratory Results - last 24 hr 11/15/17 11/15/17 11/16/17 16:18 21:08 06:22 WBC RBC Hgb Hct MCV MCH MCHC RDW Plt Count MPV Absolute Neuts (auto) Neutrophils % Neutrophils % (Manual) Band Neutrophils % Lymphocytes % Lymphocytes % (Manual) Monocytes % Monocytes % (Manual) Eosinophils % Eosinophils % (Manual) Basophils % Basophils % (Manual) Myelocytes % (Man) Promyelocytes % (Man) Blast Cells % (Manual) Nucleated RBC % Metamyelocytes Hypochromia Platelet Estimate Polychromasia Poikilocytosis Anisocytosis Microcytosis Macrocytosis Target Cells Ovalocytes Sodium Potassium Chloride Carbon Dioxide Anion Gap BUN Creatinine Creat Clearance w eGFR POC Glucometer 449 259 222 Random Glucose Calcium Phosphorus Magnesium Total Bilirubin AST ALT Alkaline Phosphatase Total Protein Albumin 11/16/17 11/16/17 11/16/17 06:30 06:30 12:15 WBC 17.1 H RBC 5.17 Hgb 10.7 Hct 34.7 MCV 67.1 L MCH 20.6 L MCHC 30.7 L RDW 19.6 H Plt Count 344 MPV 8.0 Absolute Neuts (auto) 15.0 Neutrophils % 87.5 H Neutrophils % (Manual) 85.7 H Band Neutrophils % 0.0 Lymphocytes % 9.0 Lymphocytes % (Manual) 10.2 D Monocytes % 3.3 L Monocytes % (Manual) 3 L D Eosinophils % 0.0 D Eosinophils % (Manual) 0.0 Basophils % 0.2 Basophils % (Manual) 0.0 Myelocytes % (Man) 0 Promyelocytes % (Man) 0 Blast Cells % (Manual) 0 Nucleated RBC % 0 Metamyelocytes 0 Hypochromia 0 Platelet Estimate Normal Polychromasia 0 Poikilocytosis 1+ Anisocytosis 3+ Microcytosis 2+ Macrocytosis 0 Target Cells 1+ Ovalocytes 1+ Sodium 140 Potassium 4.2 Chloride 102 Carbon Dioxide 31 Anion Gap 7 L BUN 17 Creatinine 0.8 Creat Clearance w eGFR > 60 POC Glucometer 237 Random Glucose 227 H Calcium 8.6 Phosphorus 3.0 Magnesium 2.7 H Total Bilirubin 0.2 AST 19 ALT 39 Alkaline Phosphatase 51 Total Protein 6.5 Albumin 3.2 L 11/16/17 17:29 WBC RBC Hgb Hct MCV MCH MCHC RDW Plt Count MPV Absolute Neuts (auto) Neutrophils % Neutrophils % (Manual) Band Neutrophils % Lymphocytes % Lymphocytes % (Manual) Monocytes % Monocytes % (Manual) Eosinophils % Eosinophils % (Manual) Basophils % Basophils % (Manual) Myelocytes % (Man) Promyelocytes % (Man) Blast Cells % (Manual) Nucleated RBC % Metamyelocytes Hypochromia Platelet Estimate Polychromasia Poikilocytosis Anisocytosis Microcytosis Macrocytosis Target Cells Ovalocytes Sodium Potassium Chloride Carbon Dioxide Anion Gap BUN Creatinine Creat Clearance w eGFR POC Glucometer 238 Random Glucose Calcium Phosphorus Magnesium Total Bilirubin AST ALT Alkaline Phosphatase Total Protein Albumin Active Medications Acetylcysteine (Mucomyst 20 Oral / Inh Use Only*) 200 mg NEB RQID [facility] Last Admin: 11/17/17 08:50 Dose: 200 mg Albuterol Sulfate (Ventolin 0.083% Nebulizer Soln -) 1 amp NEB RQID [facility] Last Admin: 11/17/17 08:50 Dose: 1 amp Budesonide/Formoterol Fumarate (Symbicort 160/4.5mcg -) 2 puff IH BID [facility] Last Admin: 11/17/17 09:59 Dose: 2 puff Fluconazole (Diflucan -) 100 mg PO DAILY [facility] Last Admin: 11/17/17 10:00 Dose: 100 mg Heparin Sodium (Porcine) (Heparin -) 5,000 unit SQ TID [facility] Last Admin: 11/17/17 06:42 Dose: Not Given Insulin Aspart (Novolog Vial Sliding Scale -) 1 vial SQ ACHS [facility]; Protocol Last Admin: 11/17/17 06:43 Dose: 4 units Insulin Detemir (Levemir Vial) 15 units SQ HS [facility] Methylprednisolone Sodium Succinate (Solu-Medrol -) 40 mg IVPUSH Q8H-IV [facility] Last Admin: 11/17/17 10:00 Dose: 40 mg Montelukast Sodium (Singulair -) 10 mg PO HS [facility] Last Admin: 11/16/17 21:50 Dose: 10 mg Non-Formulary Medication (Elviteg/Cob/Emtri/Tenof Alafen [Genvoya (Non-Formulary )]) 1 tab PO DAILY [facility] Last Admin: 11/17/17 10:00 Dose: 1 tab Pantoprazole Sodium (Protonix -) 40 mg PO BID [facility] Last Admin: 11/17/17 10:00 Dose: 40 mg Tiotropium [place] (Spiriva -) 1 puff IH DAILY [facility] Last Admin: 11/17/17 09:59 Dose: 1 cap IMAGING: - CXR (11/10): Excessive soft tissues. No acute pathology. No change of an adverse nature since 07/26/2016 - Chest CT (11/13): Limited study with no evidence of acute pathology within the chest. - DUPLEX (11/13): No evidence of deep venous thrombosis. - ECHO: Technically limited, LVEF 55-60% ASSESSMENT/PLAN: Patient is a 47y/o F with PMHx of recurrent asthma exacerbations and hospitalizations, (never intubated), DM, HIV (on genvoya), anemia and chronic epigastric pain, presenting to ER with worsening SOB at rest for past 2 days 1. Acute asthma exacerbation - Decreased SoluMedrol to 40 mg IVPUSH Q6H - Completed 5 day course of Azithromycin and Ceftriaxone - Continue Duonebs Q4H, Symbicort 2 puffs bid - Supplemental oxygen as needed to maintain oxygen saturation - Peak flow measurement - Pulmonary consulted, appreciated recs - ABG - CT Chest reviewed - 2D Echo reviewed - Continue Bipap HS 2. Possible Oral candidiasis - No Oral thrush on exam however patient insists on hx of recurrent oral candidiasis - CD4 count 192 - Start Diflucan 100 mg PO DAILY 3. Microcytic anemia - MCV: 67.8 - Iron studies pending 4. HIV - Cont genovya - CD4 count - viral load 5. DM - ISS, BGM - A1c: 6.6% - Diabetic diet - Continue Insulin Novolog Sliding Scale SQ ACHS - Continue Insulin Levemir 10 units SQ HS 6. H. Pylori - Triple therapy, substitute Azithromycin for Clartithromycin, Hold ampicillin, Finished tx (11/14) 7. FEN - No fluids indicated - Lytes WNL - Diabetic/sodium restricted diet 8. PPx - Heparin 5000 TID SQ - PPI while on steroids Visit type - Emergency Visit Emergency Visit: Yes ED Registration Date: 11/10/17 Care time: The patient presented to the Emergency Department on the above date and was hospitalized for further evaluation of their emergent condition. - New Patient This patient is new to me today: No - Critical Care Critical Care patient: No
[2017-11-16] MEDS: methylPREDNISolone NA SUCC 40 MG/1 ML VIAL IVPUSH SCH (21:50)
[2017-11-16] MEDS: MONTELUKAST NA 10 MG TABLET PO SCH (21:50)
[2017-11-17] MEDS: methylPREDNISolone NA SUCC 40 MG/1 ML VIAL IVPUSH SCH ×3 (03:23→17:19)
[2017-11-17] MEDS: HEPARIN NA (PORCINE) 5,000 UNITS/ML 1ML VIAL SQ SCH ×3 (06:42→21:16)
[2017-11-17] MEDS: INSULIN SLIDING SCALE (NOVOLOG) 1 VIAL SQ SCH ×4 (06:43→21:29)
[2017-11-17] MEDS ORDERED: INSULIN (LEVEMIR) 100 UNITS/ML UNITS SQ ONE (07:07)
[2017-11-17] MEDS ORDERED: INSULIN (NOVOLOG) ASPART 100 UNITS/ML 10ML VIAL ONE ×2 (07:07→11:46)
--- NOTE | 2017-11-17 07:52 | PN ---
Physical Exam: SUBJECTIVE: Patient seen and examined a bed side , no acute events over night , breathing has been improving , but still have some expiratory wheezing in upper air ways , she complains of chest pain worsening with coughing sharp B/L. OBJECTIVE: Vital Signs Period Temp Pulse Resp BP Sys/So Pulse Ox Last 24 Hr 97.5 F-97.9 F 66-84 20-24 115-139/63-81 97-97 GENERAL: AAOx3 in NAD HEAD: NC/AT EYES: PERRL, EOMI, sclera anicteric, conjunctiva clear. ENT: Ears normal, nares patent, oropharynx clear without exudates, moist mucous membranes. NECK: Trachea midline,FROM, supple. LUNGS: upper air way expiratory wheezing , no crackles, no accessory muscle use. HEART: RRR, S1, S2 without MRG ABDOMEN: Obese , Soft, ND/NT normoactive bowel sounds, no guarding, no rebound, EXTREMITIES: 2+ pulses, warm, well-perfused, +2 edema. NEUROLOGICAL: no focal deficit PSYCH: Normal mood, normal affect. SKIN: Warm, dry, normal turgor, Laboratory Results - last 24 hr 11/15/17 11/16/17 11/16/17 16:18 06:30 06:30 WBC 17.1 H RBC 5.17 Hgb 10.7 Hct 34.7 MCV 67.1 L MCH 20.6 L MCHC 30.7 L RDW 19.6 H Plt Count 344 MPV 8.0 Absolute Neuts (auto) 15.0 Neutrophils % 87.5 H Neutrophils % (Manual) 85.7 H Band Neutrophils % 0.0 Lymphocytes % 9.0 Lymphocytes % (Manual) 10.2 D Monocytes % 3.3 L Monocytes % (Manual) 3 L D Eosinophils % 0.0 D Eosinophils % (Manual) 0.0 Basophils % 0.2 Basophils % (Manual) 0.0 Myelocytes % (Man) 0 Promyelocytes % (Man) 0 Blast Cells % (Manual) 0 Nucleated RBC % 0 Metamyelocytes 0 Hypochromia 0 Platelet Estimate Normal Polychromasia 0 Poikilocytosis 1+ Anisocytosis 3+ Microcytosis 2+ Macrocytosis 0 Target Cells 1+ Ovalocytes 1+ Sodium 140 Potassium 4.2 Chloride 102 Carbon Dioxide 31 Anion Gap 7 L BUN 17 Creatinine 0.8 Creat Clearance w eGFR > 60 POC Glucometer 449 Random Glucose 227 H Calcium 8.6 Phosphorus 3.0 Magnesium 2.7 H Total Bilirubin 0.2 AST 19 ALT 39 Alkaline Phosphatase 51 Total Protein 6.5 Albumin 3.2 L 11/16/17 11/16/17 11/16/17 12:15 17:29 21:49 WBC RBC Hgb Hct MCV MCH MCHC RDW Plt Count MPV Absolute Neuts (auto) Neutrophils % Neutrophils % (Manual) Band Neutrophils % Lymphocytes % Lymphocytes % (Manual) Monocytes % Monocytes % (Manual) Eosinophils % Eosinophils % (Manual) Basophils % Basophils % (Manual) Myelocytes % (Man) Promyelocytes % (Man) Blast Cells % (Manual) Nucleated RBC % Metamyelocytes Hypochromia Platelet Estimate Polychromasia Poikilocytosis Anisocytosis Microcytosis Macrocytosis Target Cells Ovalocytes Sodium Potassium Chloride Carbon Dioxide Anion Gap BUN Creatinine Creat Clearance w eGFR POC Glucometer 237 238 231 Random Glucose Calcium Phosphorus Magnesium Total Bilirubin AST ALT Alkaline Phosphatase Total Protein Albumin 11/17/17 06:41 WBC RBC Hgb Hct MCV MCH MCHC RDW Plt Count MPV Absolute Neuts (auto) Neutrophils % Neutrophils % (Manual) Band Neutrophils % Lymphocytes % Lymphocytes % (Manual) Monocytes % Monocytes % (Manual) Eosinophils % Eosinophils % (Manual) Basophils % Basophils % (Manual) Myelocytes % (Man) Promyelocytes % (Man) Blast Cells % (Manual) Nucleated RBC % Metamyelocytes Hypochromia Platelet Estimate Polychromasia Poikilocytosis Anisocytosis Microcytosis Macrocytosis Target Cells Ovalocytes Sodium Potassium Chloride Carbon Dioxide Anion Gap BUN Creatinine Creat Clearance w eGFR POC Glucometer 211 Random Glucose Calcium Phosphorus Magnesium Total Bilirubin AST ALT Alkaline Phosphatase Total Protein Albumin Active Medications Generic Name Dose Route Start Last Admin Trade Name Freq PRN Reason Stop Dose Admin Acetylcysteine 200 mg 11/13/17 12:00 11/16/17 20:50 Mucomyst 20 Oral / Inh Use Only* NEB 200 mg RQID KAREN Administration Albuterol Sulfate 1 amp 11/13/17 12:00 11/16/17 20:50 Ventolin 0.083% Nebulizer Soln - NEB 1 amp RQID KAREN Administration Budesonide/Formoterol Fumarate 2 puff 11/11/17 22:00 11/16/17 21:51 Symbicort 160/4.5mcg - IH 2 puff BID KAREN Administration Fluconazole 100 mg 11/17/17 10:00 Diflucan - PO DAILY KAREN Heparin Sodium (Porcine) 5,000 unit 11/11/17 22:00 11/17/17 06:42 Heparin - SQ Not Given TID KAREN Insulin Aspart 1 vial 11/11/17 22:00 11/17/17 06:43 Novolog Vial Sliding Scale - SQ 4 units ACHS KAREN Administration Protocol Insulin Detemir 10 units 11/16/17 10:30 11/16/17 21:54 Levemir Vial SQ 10 units HS KAREN Administration Methylprednisolone Sodium Succinate 40 mg 11/16/17 21:00 11/17/17 03:23 Solu-Medrol - IVPUSH 40 mg Q6H-IV KAREN Administration Montelukast Sodium 10 mg 11/13/17 22:00 11/16/17 21:50 Singulair - PO 10 mg HS KAREN Administration Non-Formulary Medication 1 tab 11/12/17 10:00 11/16/17 09:28 Elviteg/Cob/Emtri/Tenof Alafen [Genvoya (Non-Formulary)] PO 1 tab DAILY KAREN Administration Pantoprazole Sodium 40 mg 11/11/17 22:00 11/16/17 21:50 Protonix - PO 40 mg BID KAREN Administration Tiotropium [place] 1 puff 11/13/17 12:00 11/16/17 09:27 Spiriva - IH 1 cap DAILY KAREN Administration CBC, BMP 11/16/17 06:30 11/16/17 06:30 ASSESSMENT/PLAN: Patient is a 47y/o F with PMHx of recurrent asthma exacerbations and hospitalizations, (never intubated), DM, HIV (on genvoya), anemia and chronic epigastric pain, presenting to ER with worsening SOB at rest for past 2 days # Acute asthma exacerbation * taper SoluMedrol to 40 mg IVPUSH Q8H * Completed 5 day course of Azithromycin and Ceftriaxone,monitor off abx * Continue mucomyst/symbicort/terbutaline * O2 as needed to maintain oxygen saturation> 89% * Peak flow measurement * Pulmonary consulted, appreciated recs * ABG * CT Chest reviewed * 2D Echo reviewed limited due to pt size * Continue Bipap over night * LE US negative for DVTS , low probability for PE # Possible Oral candidiasis * No Oral thrush on exam however patient insists on hx of recurrent oral candidiasis * CD4 count 192 * Start Fluconazole 100 mg PO DAILY # Microcytic anemia likely from chronic disease HIV and copd * MCV: 67.8 * Iron studies pending # HIV * Cont HAART * CD4 count 192 last cd4 900 * viral load # DM * ISS, BGM * A1c: 6.6 * Diabetic diet * Continue Insulin Novolog Sliding Scale SQ ACHS * increased Insulin Levemir to 15 units SQ HS # H. Pylori * completed Triple therapy, substitute Azithromycin for Clartithromycin, Hold ampicillin, Finished tx (10/28) # FEN * F:No standing fluids * Lytes WNL monitor * N: Diabetic/sodium restricted diet # Prophylaxis * DVTS: Heparin 5000 TID SQ * GI: PPI while on steroids Visit type - Emergency Visit Emergency Visit: Yes ED Registration Date: 11/10/17 Care time: The patient presented to the Emergency Department on the above date and was hospitalized for further evaluation of their emergent condition. - New Patient This patient is new to me today: Yes Date on this admission: 11/17/17 - Critical Care Critical Care patient: No
[2017-11-17] MEDS: ACETYLCYSTEINE 20% 200MG/ML 4 ML VIAL *FOR ORAL / INH USE ONLY NEB SCH ×4 (08:50→20:10)
[2017-11-17] MEDS: ALBUTEROL SO4 0.083% IH SOL 2.5 MG/3 ML VIAL.NEB. NEB SCH ×4 (08:50→20:10)
[2017-11-17 09:13] LABS: HEMATOCRIT 35.2 % (32.4-45.2); HEMOGLOBIN 10.8 GM/dL (10.7-15.3); MCH 20.6 pg (25.7-33.7); MCHC 30.7 g/dl (32.0-36.0); MEAN CELL VOLUME 66.9 fl (80-96); MEAN PLT VOLUME 7.5 fl (7.5-11.1); PLATELET COUNT 320 K/MM3 (134-434); RBC 5.26 M/mm3 (3.60-5.2); RDW 19.5 % (11.6-15.6); WHITE BLOOD COUNT 15.9 K/mm3 (4.0-10.0)
--- NOTE | 2017-11-17 09:19 | PN ---
Teaching Attending Note Name of Resident: Dale Burgess ATTENDING PHYSICIAN STATEMENT I saw and evaluated the patient. I reviewed the resident's note and discussed the case with the resident. I agree with the resident's findings and plan as documented with exceptions below. SUBJECTIVE: patient seen and examined, breathing improved. mouth symptoms and dysphagia improved. Overall feels better. Reports some burning feeling all over chest, but also complaints of chest wall pain with coughing. OBJECTIVE: Vital Signs Period Temp Pulse Resp BP Sys/So Pulse Ox Last 24 Hr 97.5 F-97.9 F 66-84 20-24 115-139/63-81 97-97 Intake & Output 11/14/17 11/15/17 11/16/17 11/17/17 23:59 23:59 23:59 23:59 Intake Total 1475 1320 1580 300 Output Total 3 Balance 1475 1317 1580 300 General: sitting in chair, much more comfortable, talking in full sentences and no use of acessory muscles of respiration Chest: markedly improved air entry all over, occasional wheezing HEENT: minimal whitish plaque, improved Abdomen:soft, obese, NT Extremities: unchanged 1+ pedal edema Active Medications Acetylcysteine (Mucomyst 20 Oral / Inh Use Only*) 200 mg NEB RQID KAREN Last Admin: 11/16/17 20:50 Dose: 200 mg Albuterol Sulfate (Ventolin 0.083% Nebulizer Soln -) 1 amp NEB RQID KAREN Last Admin: 11/16/17 20:50 Dose: 1 amp Budesonide/Formoterol Fumarate (Symbicort 160/4.5mcg -) 2 puff IH BID [facility] Last Admin: 11/16/17 21:51 Dose: 2 puff Fluconazole (Diflucan -) 100 mg PO DAILY KAREN Heparin Sodium (Porcine) (Heparin -) 5,000 unit SQ TID KAREN Last Admin: 11/17/17 06:42 Dose: Not Given Insulin Aspart (Novolog Vial Sliding Scale -) 1 vial SQ ACHS [facility]; Protocol Last Admin: 11/17/17 06:43 Dose: 4 units Insulin Detemir (Levemir Vial) 10 units SQ HS KAREN Last Admin: 11/16/17 21:54 Dose: 10 units Methylprednisolone Sodium Succinate (Solu-Medrol -) 40 mg IVPUSH Q8H-IV KAREN Montelukast Sodium (Singulair -) 10 mg PO HS [facility] Last Admin: 11/16/17 21:50 Dose: 10 mg Non-Formulary Medication (Elviteg/Cob/Emtri/Tenof Alafen [Genvoya (Non-Formulary )]) 1 tab PO DAILY KAREN Last Admin: 11/16/17 09:28 Dose: 1 tab Pantoprazole Sodium (Protonix -) 40 mg PO BID KAREN Last Admin: 11/16/17 21:50 Dose: 40 mg Tiotropium [place] (Spiriva -) 1 puff IH DAILY [facility] Last Admin: 11/16/17 09:27 Dose: 1 cap Laboratory Results - last 24 hr 11/15/17 11/16/17 11/16/17 16:18 06:30 12:15 WBC RBC Hgb Hct MCV MCH MCHC RDW Plt Count MPV Neutrophils % (Manual) 85.7 H Band Neutrophils % 0.0 Lymphocytes % (Manual) 10.2 D Monocytes % (Manual) 3 L D Eosinophils % (Manual) 0.0 Basophils % (Manual) 0.0 Myelocytes % (Man) 0 Promyelocytes % (Man) 0 Blast Cells % (Manual) 0 Nucleated RBC % 0 Metamyelocytes 0 Hypochromia 0 Platelet Estimate Normal Polychromasia 0 Poikilocytosis 1+ Anisocytosis 3+ Microcytosis 2+ Macrocytosis 0 Target Cells 1+ Ovalocytes 1+ POC Glucometer 449 237 11/16/17 11/16/17 11/17/17 17:29 21:49 06:41 WBC RBC Hgb Hct MCV MCH MCHC RDW Plt Count MPV Neutrophils % (Manual) Band Neutrophils % Lymphocytes % (Manual) Monocytes % (Manual) Eosinophils % (Manual) Basophils % (Manual) Myelocytes % (Man) Promyelocytes % (Man) Blast Cells % (Manual) Nucleated RBC % Metamyelocytes Hypochromia Platelet Estimate Polychromasia Poikilocytosis Anisocytosis Microcytosis Macrocytosis Target Cells Ovalocytes POC Glucometer 238 231 211 11/17/17 08:45 WBC 15.9 H RBC 5.26 H Hgb 10.8 Hct 35.2 MCV 66.9 L MCH 20.6 L MCHC 30.7 L RDW 19.5 H Plt Count 320 MPV 7.5 Neutrophils % (Manual) Band Neutrophils % Lymphocytes % (Manual) Monocytes % (Manual) Eosinophils % (Manual) Basophils % (Manual) Myelocytes % (Man) Promyelocytes % (Man) Blast Cells % (Manual) Nucleated RBC % Metamyelocytes Hypochromia Platelet Estimate Polychromasia Poikilocytosis Anisocytosis Microcytosis Macrocytosis Target Cells Ovalocytes POC Glucometer Microbiology 11/14/17 06:45 Sputum - Expectorated Gram Stain - Final 11/14/17 06:45 Sputum - Expectorated Sputum Culture - Final NORMAL RESPIRATORY DEEP 11/13/17 18:20 Urine For Antigen Detection Legionella Antigen - Final 11/13/17 18:20 Urine For Antigen Detection Streptococcus pneumoniae Antigen (M - Final ASSESSMENT AND PLAN: 47yo F wtih PMH morbid obesity, asthma, HIV and anemia, H pylori gastritis on tx admitted with acute asthma exacerbation -Acute asthma exacerbation -Possible RLL CAP -Oral candidiasis +/- esophageal candidiasis -?Right heart dysfunction -Morbid obesity -PUMA, non compliant with CPAP -HIV on HAART -H. pylori gastritis on triple therapy -Microcytic anemia (pror history of IV iron and intolerence to PO iron reportedly) -Pre-diabetes, A1c 6.6 Plan: Improved, slowly taper solumedrol 40 mg IV q8h. Pulmonary input appreciated. mucomyst/symbicort/terbutaline. ABG noted Tolerating nightly bipap, continue. LE duplex neg. Agree, current exam and findings low suspicion for PE. 2D echo noted, limited study. Fluconazole day 2 given recurrent oral candidiasis with dysphagia and CD4 < 200. ISS, diabetic diet and counseling. Diabetic education. Increase levemir to 15 units hs. ID consulted, input appreciated. s/p 5 days of Ceftriaxone/azithromycin day, monitor off antibiotics. CD4 192, ID input noted, last CD4 900. Check viral load. May be a candidate for PCP prophylaxis, defer to ID outpatient. Continue HAART. ON triple therapy, continue PPI BID (hold ampicillin/clarithromycin given above) . completed 11/14. Continue PPI BID while on high dose steroids. DVTPPx with heparin Dispo pending clinical improvement. Plan discussed with patient in detail, all questions answered.
[2017-11-17 09:51] LABS: ANION GAP 8 (8-16); BLOOD UREA NITROGEN 17 mg/dL (7-18); CALCIUM 8.4 mg/dL (8.5-10.1); CHLORIDE 105 mmol/L (98-107); CO2 29 mmol/L (21-32); CREATININE 0.8 mg/dL (0.55-1.02); GLUCOSE,RANDOM 198 mg/dL (74-106); POTASSIUM 4.1 mmol/L (3.5-5.1); SODIUM 142 mmol/L (136-145)
[2017-11-17] MEDS: BUDESONIDE/FORMETEROL FUMARATE 160/4.5 mcg INHALER IH SCH ×2 (09:59→21:24)
[2017-11-17] MEDS: TIOTROPIUM BROMIDE 18 MCG CAPSULES IH SCH (09:59)
[2017-11-17] MEDS: PATIENT'S OWN MEDICATION (NON-FORMULARY) (Elviteg/Cob/Emtri/Tenof Alafen [Genvoya (Non-For PO SCH (10:00)
[2017-11-17] MEDS: FLUCONAZOLE 100 MG TABLET (UD) PO SCH (10:00)
[2017-11-17] MEDS: PANTOPRAZOLE 40 MG TABLET (FP) PO SCH ×2 (10:00→21:25)
--- NOTE | 2017-11-17 13:14 | PN ---
Progress Note (short form) - Note Progress Note: PULMONARY Breathing slowly improving. Still cough and wheezing. Peak flow 250. Vital Signs Period Temp Pulse Resp BP Sys/So Pulse Ox Last 24 Hr 97.6 F-97.9 F 66-77 20-22 115-139/63-88 97-97 Gen: NAD in chair Heart: RRR Lung: bilateral rhonchi, wheezes Abd: soft, nontender, obese Ext: no edema CBC, BMP 11/17/17 08:45 11/17/17 08:45 Active Medications Acetylcysteine (Mucomyst 20 Oral / Inh Use Only*) 200 mg NEB RQID [facility] Last Admin: 11/17/17 12:09 Dose: 200 mg Albuterol Sulfate (Ventolin 0.083% Nebulizer Soln -) 1 amp NEB RQID [facility] Last Admin: 11/17/17 12:09 Dose: 1 amp Budesonide/Formoterol Fumarate (Symbicort 160/4.5mcg -) 2 puff IH BID [facility] Last Admin: 11/17/17 09:59 Dose: 2 puff Fluconazole (Diflucan -) 100 mg PO DAILY [facility] Last Admin: 11/17/17 10:00 Dose: 100 mg Heparin Sodium (Porcine) (Heparin -) 5,000 unit SQ TID [facility] Last Admin: 11/17/17 06:42 Dose: Not Given Insulin Aspart (Novolog Vial Sliding Scale -) 1 vial SQ [facility]; Protocol Last Admin: 11/17/17 11:48 Dose: 6 units Insulin Detemir (Levemir Vial) 15 units SQ [facility] Methylprednisolone Sodium Succinate (Solu-Medrol -) 40 mg IVPUSH Q8H-IV [facility] Last Admin: 11/17/17 10:00 Dose: 40 mg Montelukast Sodium (Singulair -) 10 mg PO HS [facility] Last Admin: 11/16/17 21:50 Dose: 10 mg Non-Formulary Medication (Elviteg/Cob/Emtri/Tenof Alafen [Genvoya (Non-Formulary )]) 1 tab PO DAILY [facility] Last Admin: 11/17/17 10:00 Dose: 1 tab Pantoprazole Sodium (Protonix -) 40 mg PO BID [facility] Last Admin: 11/17/17 10:00 Dose: 40 mg Tiotropium [place] (Spiriva -) 1 puff IH DAILY [facility] Last Admin: 11/17/17 09:59 Dose: 1 cap A/P Acute Asthma Exacerbation Acute Bronchitis HIV DM Morbid Obesity Obstructive Sleep Apnea - agree with medrol 40mg q8h - continue mucomyst/albuterol nebs - continue spiriva - singulair - inhaled bronchodilators standing and PRN - monitor peak flow - BiPAP at night and PRN during day - monitor off antibiotics - outpt PFTs, allergy testing, IgE level, RAST when off steroids - DVT prophylaxis Problem List - Problems (1) Asthma exacerbation Code(s): J45.901 - UNSPECIFIED ASTHMA WITH (ACUTE) EXACERBATION Qualifiers: Asthma severity: unspecified severity Asthma persistence: unspecified Qualified Code(s): J45.901 - Unspecified asthma with (acute) exacerbation (2) Acute bronchitis Code(s): J20.9 - ACUTE BRONCHITIS, UNSPECIFIED (3) HIV (human immunodeficiency virus infection) Code(s): Z21 - ASYMPTOMATIC HUMAN IMMUNODEFICIENCY VIRUS INFECTION STATUS (4) Obesity Code(s): E66.9 - OBESITY, UNSPECIFIED Qualifiers: Obesity type: unspecified obesity type Obesity classification: adult class 3 (BMI >= 40) Serious obesity comorbidity presence: unspecified whether serious comorbidity present Body mass index: BMI 60.0-69.9 Qualified Code(s) : E66.9 - Obesity, unspecified; Z68.44 - Body mass index (BMI) 60.0-69.9, adult (5) Sleep apnea, obstructive Code(s): G47.33 - OBSTRUCTIVE SLEEP APNEA (ADULT) (PEDIATRIC)
[2017-11-17] MEDS: MONTELUKAST NA 10 MG TABLET PO SCH (21:25)
[2017-11-17] MEDS: INSULIN (LEVEMIR) 100 UNITS/ML UNITS SQ SCH (21:31)
[2017-11-18] MEDS: methylPREDNISolone NA SUCC 40 MG/1 ML VIAL IVPUSH SCH ×3 (01:22→18:00)
[2017-11-18] MEDS: HEPARIN NA (PORCINE) 5,000 UNITS/ML 1ML VIAL SQ SCH ×3 (05:48→21:23)
[2017-11-18] MEDS: INSULIN SLIDING SCALE (NOVOLOG) 1 VIAL SQ SCH ×4 (06:03→21:32)
[2017-11-18 08:27] LABS: BASO % 0.3 % (0-2.0); HEMOGLOBIN 10.8 GM/dL (10.7-15.3); LYMPH % 8.7 % (8-40); MCH 20.8 pg (25.7-33.7); MCHC 30.8 g/dl (32.0-36.0); MEAN CELL VOLUME 67.3 fl (80-96); PLATELET COUNT 295 K/MM3 (134-434); RBC 5.19 M/mm3 (3.60-5.2); RDW 19.3 % (11.6-15.6); WHITE BLOOD COUNT 17.7 K/mm3 (4.0-10.0)
[2017-11-18] MEDS: ALBUTEROL SO4 0.083% IH SOL 2.5 MG/3 ML VIAL.NEB. NEB SCH ×4 (08:45→20:16)
[2017-11-18] MEDS: ACETYLCYSTEINE 20% 200MG/ML 4 ML VIAL *FOR ORAL / INH USE ONLY NEB SCH ×4 (08:45→20:16)
[2017-11-18 08:56] LABS: ANION GAP 8 (8-16); BLOOD UREA NITROGEN 18 mg/dL (7-18); CALCIUM 8.1 mg/dL (8.5-10.1); CHLORIDE 103 mmol/L (98-107); CO2 28 mmol/L (21-32); CREATININE 0.8 mg/dL (0.55-1.02); GLUCOSE,RANDOM 190 mg/dL (74-106); MAGNESIUM 2.5 mg/dL (1.8-2.4); POTASSIUM 3.9 mmol/L (3.5-5.1); SODIUM 139 mmol/L (136-145)
[2017-11-18] MEDS ORDERED: PT OWN MED DRAWER 7, Y5N ONE ×4 (09:53→21:30)
[2017-11-18 10:01] LABS: ANISOCYTOSIS 2+; MACROCYTOSIS 0; PLATELET ESTIMATE NORMAL
[2017-11-18] MEDS: TIOTROPIUM BROMIDE 18 MCG CAPSULES IH SCH (10:02)
[2017-11-18] MEDS: PANTOPRAZOLE 40 MG TABLET (FP) PO SCH ×2 (10:02→21:31)
[2017-11-18] MEDS: BUDESONIDE/FORMETEROL FUMARATE 160/4.5 mcg INHALER IH SCH ×2 (10:02→21:33)
[2017-11-18] MEDS: PATIENT'S OWN MEDICATION (NON-FORMULARY) (Elviteg/Cob/Emtri/Tenof Alafen [Genvoya (Non-For PO SCH (10:03)
--- NOTE | 2017-11-18 11:17 | PN ---
Progress Note (short form) - Note Progress Note: PULMONARY Breathing slowly improving. Still cough and wheezing. Peak flow 270. Chest pain with coughing. Vital Signs Period Temp Pulse Resp BP Sys/So Pulse Ox Last 24 Hr 97.6 F-98.3 F 65-73 20-24 122-156/82-92 97 Gen: NAD in chair Heart: RRR Lung: poor air entry, bilateral rhonchi, wheezes Abd: soft, nontender, obese Ext: no edema CBC, BMP 11/18/17 07:48 11/18/17 07:48 Active Medications Acetylcysteine (Mucomyst 20 Oral / Inh Use Only*) 200 mg NEB RQID [facility] Last Admin: 11/18/17 08:45 Dose: 200 mg Albuterol Sulfate (Ventolin 0.083% Nebulizer Soln -) 1 amp NEB RQID [facility] Last Admin: 11/18/17 08:45 Dose: 1 amp Budesonide/Formoterol Fumarate (Symbicort 160/4.5mcg -) 2 puff IH BID [facility] Last Admin: 11/18/17 10:02 Dose: 2 puff Fluconazole (Diflucan -) 100 mg PO DAILY [facility] Last Admin: 11/17/17 10:00 Dose: 100 mg Heparin Sodium (Porcine) (Heparin -) 5,000 unit SQ TID [facility] Last Admin: 11/18/17 05:48 Dose: Not Given Insulin Aspart (Novolog Vial Sliding Scale -) 1 vial SQ [facility]; Protocol Last Admin: 11/18/17 06:03 Dose: 2 units Insulin Detemir (Levemir Vial) 15 units SQ [facility] Last Admin: 11/17/17 21:31 Dose: 15 units Methylprednisolone Sodium Succinate (Solu-Medrol -) 40 mg IVPUSH Q8H-IV [facility] Last Admin: 11/18/17 10:02 Dose: 40 mg Montelukast Sodium (Singulair -) 10 mg PO [facility] Last Admin: 11/17/17 21:25 Dose: 10 mg Non-Formulary Medication (Elviteg/Cob/Emtri/Tenof Alafen [Genvoya (Non-Formulary )]) 1 tab PO DAILY [facility] Last Admin: 11/18/17 10:03 Dose: 1 tab Pantoprazole Sodium (Protonix -) 40 mg PO BID [facility] Last Admin: 11/18/17 10:02 Dose: 40 mg Tiotropium [place] (Spiriva -) 1 puff IH DAILY [facility] Last Admin: 11/18/17 10:02 Dose: 1 cap A/P Acute Asthma Exacerbation Acute Bronchitis HIV DM Morbid Obesity Obstructive Sleep Apnea - continue medrol 40mg q8h - continue mucomyst/albuterol nebs - continue spiriva - singulair - inhaled bronchodilators standing and PRN - monitor peak flow - BiPAP at night and PRN during day - monitor off antibiotics - outpt PFTs, allergy testing, IgE level, RAST when off steroids - DVT prophylaxis Problem List - Problems (1) Asthma exacerbation Code(s): J45.901 - UNSPECIFIED ASTHMA WITH (ACUTE) EXACERBATION Qualifiers: Asthma severity: unspecified severity Asthma persistence: unspecified Qualified Code(s): J45.901 - Unspecified asthma with (acute) exacerbation (2) Acute bronchitis Code(s): J20.9 - ACUTE BRONCHITIS, UNSPECIFIED (3) HIV (human immunodeficiency virus infection) Code(s): Z21 - ASYMPTOMATIC HUMAN IMMUNODEFICIENCY VIRUS INFECTION STATUS (4) Obesity Code(s): E66.9 - OBESITY, UNSPECIFIED Qualifiers: Obesity type: unspecified obesity type Obesity classification: adult class 3 (BMI >= 40) Serious obesity comorbidity presence: unspecified whether serious comorbidity present Body mass index: BMI 60.0-69.9 Qualified Code(s) : E66.9 - Obesity, unspecified; Z68.44 - Body mass index (BMI) 60.0-69.9, adult (5) Sleep apnea, obstructive Code(s): G47.33 - OBSTRUCTIVE SLEEP APNEA (ADULT) (PEDIATRIC)
[2017-11-18] MEDS ORDERED: INSULIN (NOVOLOG) ASPART 100 UNITS/ML 10ML VIAL ONE ×2 (11:49→17:09)
[2017-11-18] MEDS: FLUCONAZOLE 100 MG TABLET (UD) PO SCH (11:50)
--- NOTE | 2017-11-18 15:57 | PN ---
Physical Exam: SUBJECTIVE: Patient seen and examined, breathing with slow improvement, no new complaints. Dysphagia resolved. OBJECTIVE: Vital Signs Period Temp Pulse Resp BP Sys/So Pulse Ox Last 24 Hr 97.6 F-98.3 F 65-73 20-24 122-156/79-92 97 GENERAL: sitting in chair in no acute distress Chest: some upper airway wheezing, improved air entry, overall unchanged exam from yesterday Abdomen:soft, obese, NT Extremities; unchanged pedal edema HEENT: resolved thrush Laboratory Results - last 24 hr 11/17/17 11/17/17 11/18/17 16:47 21:29 06:00 WBC RBC Hgb Hct MCV MCH MCHC RDW Plt Count MPV Absolute Neuts (auto) Neutrophils % Neutrophils % (Manual) Band Neutrophils % Lymphocytes % Lymphocytes % (Manual) Monocytes % Monocytes % (Manual) Eosinophils % Eosinophils % (Manual) Basophils % Basophils % (Manual) Myelocytes % (Man) Promyelocytes % (Man) Blast Cells % (Manual) Nucleated RBC % Metamyelocytes Hypochromia Platelet Estimate Polychromasia Poikilocytosis Anisocytosis Microcytosis Macrocytosis Sodium Potassium Chloride Carbon Dioxide Anion Gap BUN Creatinine Creat Clearance w eGFR POC Glucometer 374 216 197 Random Glucose Calcium Phosphorus Magnesium 11/18/17 11/18/17 11/18/17 07:48 07:48 11:25 WBC 17.7 H RBC 5.19 Hgb 10.8 Hct 35.0 MCV 67.3 L MCH 20.8 L MCHC 30.8 L RDW 19.3 H Plt Count 295 MPV 8.0 Absolute Neuts (auto) 15.7 Neutrophils % 89.0 H Neutrophils % (Manual) 86.9 H Band Neutrophils % 0.0 Lymphocytes % 8.7 Lymphocytes % (Manual) 7.1 L D Monocytes % 2.0 L Monocytes % (Manual) 1 L Eosinophils % 0.0 Eosinophils % (Manual) 0.0 Basophils % 0.3 Basophils % (Manual) 0.0 Myelocytes % (Man) 3 H D Promyelocytes % (Man) 0 Blast Cells % (Manual) 0 Nucleated RBC % 0 Metamyelocytes 1 D Hypochromia 1+ Platelet Estimate Normal Polychromasia 2+ Poikilocytosis 1+ Anisocytosis 2+ Microcytosis 1+ Macrocytosis 0 Sodium 139 Potassium 3.9 Chloride 103 Carbon Dioxide 28 Anion Gap 8 BUN 18 Creatinine 0.8 Creat Clearance w eGFR > 60 POC Glucometer 191 Random Glucose 190 H Calcium 8.1 L Phosphorus 3.0 Magnesium 2.5 H Active Medications Generic Name Dose Route Start Last Admin Trade Name Freq PRN Reason Stop Dose Admin Acetaminophen 650 mg 11/18/17 11:17 Tylenol - PO Q4H PRN PAIN Acetylcysteine 200 mg 11/13/17 12:00 11/18/17 12:59 Mucomyst 20 Oral / Inh Use Only* NEB 200 mg RQID KAREN Administration Albuterol Sulfate 1 amp 11/13/17 12:00 11/18/17 12:59 Ventolin 0.083% Nebulizer Soln - NEB 1 amp RQID KAREN Administration Budesonide/Formoterol Fumarate 2 puff 11/11/17 22:00 11/18/17 10:02 Symbicort 160/4.5mcg - IH 2 puff BID KAREN Administration Fluconazole 100 mg 11/17/17 10:00 11/18/17 11:50 Diflucan - PO 100 mg DAILY KAREN Administration Heparin Sodium (Porcine) 5,000 unit 11/11/17 22:00 11/18/17 14:53 Heparin - SQ Not Given TID KAREN Insulin Aspart 1 vial 11/11/17 22:00 11/18/17 11:50 Novolog Vial Sliding Scale - SQ 2 units ACHS KAREN Administration Protocol Insulin Detemir 15 units 11/17/17 22:00 11/17/17 21:31 Levemir Vial SQ 15 units HS KAREN Administration Methylprednisolone Sodium Succinate 40 mg 11/17/17 10:00 11/18/17 10:02 Solu-Medrol - IVPUSH 40 mg Q8H-IV KAREN Administration Montelukast Sodium 10 mg 11/13/17 22:00 11/17/17 21:25 Singulair - PO 10 mg HS KAREN Administration Non-Formulary Medication 1 tab 11/12/17 10:00 11/18/17 10:03 Elviteg/Cob/Emtri/Tenof Alafen [Genvoya (Non-Formulary)] PO 1 tab DAILY KAREN Administration Pantoprazole Sodium 40 mg 11/11/17 22:00 11/18/17 10:02 Protonix - PO 40 mg BID KAREN Administration Tiotropium [place] 1 puff 11/13/17 12:00 11/18/17 10:02 Spiriva - IH 1 cap DAILY KAREN Administration ASSESSMENT/PLAN: 47yo F wtih PMH morbid obesity, asthma, HIV and anemia, H pylori gastritis on tx admitted with acute asthma exacerbation -Acute asthma exacerbation -Possible RLL CAP -Oral candidiasis +/- esophageal candidiasis -?Right heart dysfunction -Morbid obesity -PUMA, non compliant with CPAP -HIV on HAART -H. pylori gastritis on triple therapy -Microcytic anemia (pror history of IV iron and intolerence to PO iron reportedly) -Pre-diabetes, A1c 6.6 Plan: Improved, continue solumedrol 40 mg IV q8h, slow taper. Pulmonary input appreciated. mucomyst/symbicort/terbutaline. ABG noted Tolerating nightly bipap, continue. LE duplex neg. Agree, current exam and findings low suspicion for PE. 2D echo noted, limited study. Fluconazole day 3 given recurrent oral candidiasis with dysphagia and CD4 < 200. Symptoms improved. ISS, diabetic diet and counseling. Diabetic education. Levemir to 15 units hs. ID consulted, input appreciated. s/p 5 days of Ceftriaxone/azithromycin day, monitor off antibiotics. CD4 192, ID input noted, last CD4 900. Check viral load. May be a candidate for PCP prophylaxis, defer to ID outpatient. Continue HAART. ON triple therapy, continue PPI BID (hold ampicillin/clarithromycin given above) . completed 11/14. Continue PPI BID while on high dose steroids. DVTPPx with heparin Dispo pending clinical improvement. Plan discussed with patient in detail, all questions answered. Visit type - Emergency Visit Emergency Visit: Yes ED Registration Date: 11/10/17 Care time: The patient presented to the Emergency Department on the above date and was hospitalized for further evaluation of their emergent condition. - New Patient This patient is new to me today: No - Critical Care Critical Care patient: No - Discharge Referral Referred to [facility] Med P.C.: No
[2017-11-18] MEDS: MONTELUKAST NA 10 MG TABLET PO SCH (21:31)
[2017-11-18] MEDS: ACETAMINOPHEN 325 MG TABLET (FP) PO PRN (21:31)
[2017-11-18] MEDS: INSULIN (LEVEMIR) 100 UNITS/ML UNITS SQ SCH (21:32)
[2017-11-19] MEDS: methylPREDNISolone NA SUCC 40 MG/1 ML VIAL IVPUSH SCH ×3 (01:46→17:52)
[2017-11-19] MEDS: HEPARIN NA (PORCINE) 5,000 UNITS/ML 1ML VIAL SQ SCH ×3 (06:05→21:17)
[2017-11-19] MEDS: INSULIN SLIDING SCALE (NOVOLOG) 1 VIAL SQ SCH ×4 (06:10→21:17)
[2017-11-19] MEDS ORDERED: INSULIN (NOVOLOG) ASPART 100 UNITS/ML 10ML VIAL ONE ×3 (06:55→18:17)
[2017-11-19] MEDS ORDERED: INSULIN (LEVEMIR) 100 UNITS/ML UNITS SQ ONE (06:55)
[2017-11-19 07:18] LABS: BASO % 0.2 % (0-2.0); HEMATOCRIT 34.2 % (32.4-45.2); HEMOGLOBIN 10.5 GM/dL (10.7-15.3); LYMPH % 6.9 % (8-40); MCH 20.8 pg (25.7-33.7); MCHC 30.7 g/dl (32.0-36.0); MEAN CELL VOLUME 67.7 fl (80-96); NEUT % 88.9 % (42.8-82.8); PLATELET COUNT 317 K/MM3 (134-434); RBC 5.05 M/mm3 (3.60-5.2); RDW 19.7 % (11.6-15.6); WHITE BLOOD COUNT 17.8 K/mm3 (4.0-10.0)
[2017-11-19] MEDS: ALBUTEROL SO4 0.083% IH SOL 2.5 MG/3 ML VIAL.NEB. NEB SCH ×4 (07:30→20:50)
[2017-11-19] MEDS: ACETYLCYSTEINE 20% 200MG/ML 4 ML VIAL *FOR ORAL / INH USE ONLY NEB SCH ×4 (07:30→20:50)
[2017-11-19] MEDS: PANTOPRAZOLE 40 MG TABLET (FP) PO SCH ×2 (09:41→21:18)
[2017-11-19] MEDS: BUDESONIDE/FORMETEROL FUMARATE 160/4.5 mcg INHALER IH SCH ×2 (09:41→21:18)
[2017-11-19] MEDS: TIOTROPIUM BROMIDE 18 MCG CAPSULES IH SCH (09:41)
[2017-11-19] MEDS: PATIENT'S OWN MEDICATION (NON-FORMULARY) (Elviteg/Cob/Emtri/Tenof Alafen [Genvoya (Non-For PO SCH (09:42)
[2017-11-19] MEDS: FLUCONAZOLE 100 MG TABLET (UD) PO SCH (09:42)
[2017-11-19 10:47] LABS: ANISOCYTOSIS 2+; MACROCYTOSIS 0; OVALOCYTE 1+; PLATELET ESTIMATE NORMAL
[2017-11-19] MEDS ORDERED: FUROSEMIDE 40 MG/4 ML INJECTABLE VIAL IVPUSH ONE (11:00)
--- NOTE | 2017-11-19 12:37 | PN ---
Progress Note, Physician History of Present Illness: pulmonary alert,oob-chair,dyspnea improving - Current Medication List Current Medications: Active Medications Acetaminophen (Tylenol -) 650 mg PO Q4H PRN PRN Reason: PAIN Last Admin: 11/18/17 21:31 Dose: 650 mg Acetylcysteine (Mucomyst 20 Oral / Inh Use Only*) 200 mg NEB RQID [facility] Last Admin: 11/19/17 11:25 Dose: 200 mg Albuterol Sulfate (Ventolin 0.083% Nebulizer Soln -) 1 amp NEB RQID [facility] Last Admin: 11/19/17 11:25 Dose: 1 amp Budesonide/Formoterol Fumarate (Symbicort 160/4.5mcg -) 2 puff IH BID [facility] Last Admin: 11/19/17 09:41 Dose: 2 puff Fluconazole (Diflucan -) 100 mg PO DAILY [facility] Last Admin: 11/19/17 09:42 Dose: 100 mg Heparin Sodium (Porcine) (Heparin -) 5,000 unit SQ TID [facility] Last Admin: 11/19/17 06:05 Dose: Not Given Insulin Aspart (Novolog Vial Sliding Scale -) 1 vial SQ [facility]; Protocol Last Admin: 11/19/17 11:21 Dose: 4 units Insulin Detemir (Levemir Vial) 15 units SQ [facility] Last Admin: 11/18/17 21:32 Dose: 15 units Methylprednisolone Sodium Succinate (Solu-Medrol -) 40 mg IVPUSH Q8H-IV [facility] Last Admin: 11/19/17 09:46 Dose: 40 mg Montelukast Sodium (Singulair -) 10 mg PO [facility] Last Admin: 11/18/17 21:31 Dose: 10 mg Non-Formulary Medication (Elviteg/Cob/Emtri/Tenof Alafen [Genvoya (Non-Formulary )]) 1 tab PO DAILY [facility] Last Admin: 11/19/17 09:42 Dose: 1 tab Pantoprazole Sodium (Protonix -) 40 mg PO BID [facility] Last Admin: 11/19/17 09:41 Dose: 40 mg Tiotropium [place] (Spiriva -) 1 puff IH DAILY [facility] Last Admin: 11/19/17 09:41 Dose: 1 cap - Objective Vital Signs: Vital Signs Temperature 98.1 F 11/19/17 10:00 Pulse Rate 70 11/19/17 10:00 Respiratory Rate 20 11/19/17 10:00 Blood Pressure 151/70 11/19/17 10:00 O2 Sat by Pulse Oximetry (%) 97 11/19/17 02:38 Constitutional: Yes: Calm, Obese, Pallor HENT: Yes: WNL Neck: Yes: WNL Cardiovascular: Yes: Regular Rate and Rhythm, S1, S2 Respiratory: Yes: Diminished Gastrointestinal: Yes: Normal Bowel Sounds, Soft Extremities: Yes: WNL Edema: Yes Labs: CBC, BMP 11/19/17 06:10 11/18/17 07:48 Assessment/Plan Problem List - Problems (1) Asthma exacerbation Code(s): J45.901 - UNSPECIFIED ASTHMA WITH (ACUTE) EXACERBATION Qualifiers: Asthma severity: unspecified severity Asthma persistence: unspecified Qualified Code(s): J45.901 - Unspecified asthma with (acute) exacerbation (2) Acute bronchitis Code(s): J20.9 - ACUTE BRONCHITIS, UNSPECIFIED (3) HIV (human immunodeficiency virus infection) Code(s): Z21 - ASYMPTOMATIC HUMAN IMMUNODEFICIENCY VIRUS INFECTION STATUS (4) Obesity Code(s): E66.9 - OBESITY, UNSPECIFIED Qualifiers: Obesity type: unspecified obesity type Obesity classification: adult class 3 (BMI >= 40) Serious obesity comorbidity presence: unspecified whether serious comorbidity present Body mass index: BMI 60.0-69.9 Qualified Code(s) : E66.9 - Obesity, unspecified; Z68.44 - Body mass index (BMI) 60.0-69.9, adult (5) Sleep apnea, obstructive Code(s): G47.33 - OBSTRUCTIVE SLEEP APNEA (ADULT) (PEDIATRIC) Assessment/Plan Acute Asthma Exacerbation slowly improving Acute Bronchitis HIV DM Morbid Obesity Obstructive Sleep Apnea - mucomyst with albuterol nebs - spiriva - singulair - inhaled bronchodilators standing and PRN - monitor peak flow - BiPAP at night - empiric antibiotics - outpt PFTs, allergy testing, IgE level, RAST when off steroids - DVT prophylaxis DR GREENWOOD
[2017-11-19] MEDS ORDERED: NYSTATIN POWDER 100,000 UNITS/GM - 15 GM TOPICAL POWDER TP SCH (14:15)
--- NOTE | 2017-11-19 15:53 | PN ---
Teaching Attending Note Name of Resident: Luz Wagoner ATTENDING PHYSICIAN STATEMENT I saw and evaluated the patient. I reviewed the resident's note and discussed the case with the resident. I agree with the resident's findings and plan as documented with exceptions below. SUBJECTIVE: patient seen and examined. breathing with slow improvement. No more dysphagia. OBJECTIVE: Vital Signs Period Temp Pulse Resp BP Sys/So Pulse Ox Last 24 Hr 97.8 F-98.1 F 67-101 18-20 121-151/55-71 95-97 Intake & Output 11/16/17 11/17/17 11/18/17 11/19/17 23:59 23:59 23:59 23:59 Intake Total 1580 1225 1075 920 Balance 1580 1225 1075 920 General: sitting in bed, audible wheezing but able to talk in full sentences Chest: upper air way wheezing, improved air entry bilaterally with scattered wheezing Abdomen:Soft, obese, NT Extremities: bilateral LE non pitting edema, worse today. Active Medications Acetaminophen (Tylenol -) 650 mg PO Q4H PRN PRN Reason: PAIN Last Admin: 11/18/17 21:31 Dose: 650 mg Acetylcysteine (Mucomyst 20 Oral / Inh Use Only*) 200 mg NEB RQID [facility] Last Admin: 11/19/17 11:25 Dose: 200 mg Albuterol Sulfate (Ventolin 0.083% Nebulizer Soln -) 1 amp NEB RQID [facility] Last Admin: 11/19/17 11:25 Dose: 1 amp Budesonide/Formoterol Fumarate (Symbicort 160/4.5mcg -) 2 puff IH BID [facility] Last Admin: 11/19/17 09:41 Dose: 2 puff Fluconazole (Diflucan -) 100 mg PO DAILY [facility] Last Admin: 11/19/17 09:42 Dose: 100 mg Heparin Sodium (Porcine) (Heparin -) 5,000 unit SQ TID KAREN Last Admin: 11/19/17 13:54 Dose: 5,000 unit Insulin Aspart (Novolog Vial Sliding Scale -) 1 vial SQ ACHS [facility]; Protocol Last Admin: 11/19/17 11:21 Dose: 4 units Insulin Detemir (Levemir Vial) 15 units SQ HS [facility] Last Admin: 11/18/17 21:32 Dose: 15 units Methylprednisolone Sodium Succinate (Solu-Medrol -) 40 mg IVPUSH Q8H-IV [facility] Last Admin: 11/19/17 09:46 Dose: 40 mg Montelukast Sodium (Singulair -) 10 mg PO HS [facility] Last Admin: 11/18/17 21:31 Dose: 10 mg Non-Formulary Medication (Elviteg/Cob/Emtri/Tenof Alafen [Genvoya (Non-Formulary )]) 1 tab PO DAILY [facility] Last Admin: 11/19/17 09:42 Dose: 1 tab Nystatin (Nystop Powder -) 1 applic TP DAILY KAREN Pantoprazole Sodium (Protonix -) 40 mg PO BID [facility] Last Admin: 11/19/17 09:41 Dose: 40 mg Tiotropium [place] (Spiriva -) 1 puff IH DAILY [facility] Last Admin: 11/19/17 09:41 Dose: 1 cap Laboratory Results - last 24 hr 11/18/17 11/18/17 11/19/17 16:19 21:21 06:09 WBC RBC Hgb Hct MCV MCH MCHC RDW Plt Count MPV Absolute Neuts (auto) Neutrophils % Neutrophils % (Manual) Band Neutrophils % Lymphocytes % Lymphocytes % (Manual) Monocytes % Monocytes % (Manual) Eosinophils % Eosinophils % (Manual) Basophils % Basophils % (Manual) Myelocytes % (Man) Promyelocytes % (Man) Blast Cells % (Manual) Nucleated RBC % Metamyelocytes Hypochromia Platelet Estimate Polychromasia Poikilocytosis Anisocytosis Microcytosis Macrocytosis Ovalocytes POC Glucometer 310 305 235 11/19/17 11/19/17 06:10 11:07 WBC 17.8 H RBC 5.05 Hgb 10.5 L Hct 34.2 MCV 67.7 L MCH 20.8 L MCHC 30.7 L RDW 19.7 H Plt Count 317 MPV 8.0 Absolute Neuts (auto) 15.8 Neutrophils % 88.9 H Neutrophils % (Manual) 82.8 Band Neutrophils % 4.0 Lymphocytes % 6.9 L D Lymphocytes % (Manual) 5.1 L D Monocytes % 4.0 D Monocytes % (Manual) 4 D Eosinophils % 0.0 Eosinophils % (Manual) 0.0 Basophils % 0.2 Basophils % (Manual) 0.0 Myelocytes % (Man) 0 D Promyelocytes % (Man) 0 Blast Cells % (Manual) 0 Nucleated RBC % 0 Metamyelocytes 4 H D Hypochromia 0 Platelet Estimate Normal Polychromasia 1+ Poikilocytosis 1+ Anisocytosis 2+ Microcytosis 3+ Macrocytosis 0 Ovalocytes 1+ POC Glucometer 201 Microbiology 11/14/17 06:45 Sputum - Expectorated Gram Stain - Final 11/14/17 06:45 Sputum - Expectorated Sputum Culture - Final NORMAL RESPIRATORY DEEP 11/13/17 18:20 Urine For Antigen Detection Legionella Antigen - Final 11/13/17 18:20 Urine For Antigen Detection Streptococcus pneumoniae Antigen (M - Final ASSESSMENT AND PLAN: 47yo F wtih PMH morbid obesity, asthma, HIV and anemia, H pylori gastritis on tx admitted with acute asthma exacerbation -Acute asthma exacerbation -Possible RLL CAP -Oral candidiasis +/- esophageal candidiasis -?Right heart dysfunction -Morbid obesity -PUMA, non compliant with CPAP -HIV on HAART -H. pylori gastritis on triple therapy -Microcytic anemia (pror history of IV iron and intolerence to PO iron reportedly) -Pre-diabetes, A1c 6.6 Plan: Improved, continue solumedrol 40 mg IV q8h, slow taper. Worsened pedal edema, ?Right heart failure. trial lasix 20 mg IV x 1. Continue Bipap. Pulmonary input appreciated. mucomyst/symbicort/terbutaline. ABG noted Tolerating nightly bipap, continue. LE duplex neg. 2D echo noted, limited study. Fluconazole day 4 given recurrent oral candidiasis with dysphagia and CD4 < 200. Symptoms improved. ISS, diabetic diet and counseling. Diabetic education. Levemir to 15 units hs. ID consulted, input appreciated. s/p 5 days of Ceftriaxone/azithromycin day, monitor off antibiotics. CD4 192, ID input noted, last CD4 ?900. PRior CD4 at [facility] 190s-200s. May be a candidate for PCP prophylaxis, defer to ID outpatient. Continue HAART. s/p triple therapy, completed 11/14. Continue PPI BID while on high dose steroids. DVTPPx with heparin Dispo pending clinical improvement. Plan discussed with patient in detail, all questions answered.
[2017-11-19] MEDS: NYSTATIN POWDER 100,000 UNITS/GM - 15 GM TOPICAL POWDER TP SCH (17:52)
--- NOTE | 2017-11-19 18:36 | PN ---
Physical Exam: SUBJECTIVE: Patient seen and examined this morning sitting in her chair. Patient is feeling chest tightness she attributes to her cough over night; Tylenol has helped improve this pain. Overall she feels better however she continues to have cough productive of thick white phlegm. She additionally feels chills, nausea and itching. She did use her bipap overnight. Denies fevers, chest pain, vomiting, diarrhea, constipation. OBJECTIVE: Vital Signs Period Temp Pulse Resp BP Sys/So Pulse Ox Last 24 Hr 97.8 F-98.2 F 67-101 18-20 124-151/55-70 95-97 GENERAL: The patient is awake, alert, and fully oriented, in no acute distress. LUNGS: Breath sounds equal, Diffuse Upper chest wheezing heard HEART: Regular rate and rhythm, S1, S2 without murmur, rub or gallop. ABDOMEN: Obese, Soft, nontender, nondistended, normoactive bowel sounds EXTREMITIES: 2+ Pitting Edema remains, worse today on right foot > left Laboratory Results - last 24 hr 11/18/17 11/19/17 11/19/17 21:21 06:09 06:10 WBC 17.8 H RBC 5.05 Hgb 10.5 L Hct 34.2 MCV 67.7 L MCH 20.8 L MCHC 30.7 L RDW 19.7 H Plt Count 317 MPV 8.0 Absolute Neuts (auto) 15.8 Neutrophils % 88.9 H Neutrophils % (Manual) 82.8 Band Neutrophils % 4.0 Lymphocytes % 6.9 L D Lymphocytes % (Manual) 5.1 L D Monocytes % 4.0 D Monocytes % (Manual) 4 D Eosinophils % 0.0 Eosinophils % (Manual) 0.0 Basophils % 0.2 Basophils % (Manual) 0.0 Myelocytes % (Man) 0 D Promyelocytes % (Man) 0 Blast Cells % (Manual) 0 Nucleated RBC % 0 Metamyelocytes 4 H D Hypochromia 0 Platelet Estimate Normal Polychromasia 1+ Poikilocytosis 1+ Anisocytosis 2+ Microcytosis 3+ Macrocytosis 0 Ovalocytes 1+ POC Glucometer 305 235 11/19/17 11/19/17 11:07 17:20 WBC RBC Hgb Hct MCV MCH MCHC RDW Plt Count MPV Absolute Neuts (auto) Neutrophils % Neutrophils % (Manual) Band Neutrophils % Lymphocytes % Lymphocytes % (Manual) Monocytes % Monocytes % (Manual) Eosinophils % Eosinophils % (Manual) Basophils % Basophils % (Manual) Myelocytes % (Man) Promyelocytes % (Man) Blast Cells % (Manual) Nucleated RBC % Metamyelocytes Hypochromia Platelet Estimate Polychromasia Poikilocytosis Anisocytosis Microcytosis Macrocytosis Ovalocytes POC Glucometer 201 227 Microbiology 11/14/17 06:45 Sputum - Expectorated Gram Stain - Final 11/14/17 06:45 Sputum - Expectorated Sputum Culture - Final NORMAL RESPIRATORY DEEP 11/13/17 18:20 Urine For Antigen Detection Legionella Antigen - Final 11/13/17 18:20 Urine For Antigen Detection Streptococcus pneumoniae Antigen (M - Final Active Medications Acetaminophen (Tylenol -) 650 mg PO Q4H PRN PRN Reason: PAIN Last Admin: 11/18/17 21:31 Dose: 650 mg Acetylcysteine (Mucomyst 20 Oral / Inh Use Only*) 200 mg NEB RQID [facility] Last Admin: 11/19/17 15:55 Dose: 200 mg Albuterol Sulfate (Ventolin 0.083% Nebulizer Soln -) 1 amp NEB RQID [facility]EN Last Admin: 11/19/17 15:55 Dose: 1 amp Budesonide/Formoterol Fumarate (Symbicort 160/4.5mcg -) 2 puff IH BID [facility] Last Admin: 11/19/17 09:41 Dose: 2 puff Fluconazole (Diflucan -) 100 mg PO DAILY [facility] Last Admin: 11/19/17 09:42 Dose: 100 mg Heparin Sodium (Porcine) (Heparin -) 5,000 unit SQ TID [facility] Last Admin: 11/19/17 13:54 Dose: 5,000 unit Insulin Aspart (Novolog Vial Sliding Scale -) 1 vial SQ ACHS [facility]; Protocol Last Admin: 11/19/17 17:52 Dose: 2 units Insulin Detemir (Levemir Vial) 15 units SQ HS [facility] Last Admin: 11/18/17 21:32 Dose: 15 units Methylprednisolone Sodium Succinate (Solu-Medrol -) 40 mg IVPUSH Q8H-IV [facility] Last Admin: 11/19/17 17:52 Dose: 40 mg Montelukast Sodium (Singulair -) 10 mg PO HS [facility] Last Admin: 11/18/17 21:31 Dose: 10 mg Non-Formulary Medication (Elviteg/Cob/Emtri/Tenof Alafen [Genvoya (Non-Formulary )]) 1 tab PO DAILY [facility] Last Admin: 11/19/17 09:42 Dose: 1 tab Nystatin (Nystop Powder -) 1 applic TP DAILY [facility] Last Admin: 11/19/17 17:52 Dose: 1 applic Pantoprazole Sodium (Protonix -) 40 mg PO BID [facility] Last Admin: 11/19/17 09:41 Dose: 40 mg Tiotropium [place] (Spiriva -) 1 puff IH DAILY [facility] Last Admin: 11/19/17 09:41 Dose: 1 cap IMAGING: - CXR (11/10): Excessive soft tissues. No acute pathology. No change of an adverse nature since 07/26/2016 - Chest CT (11/13): Limited study with no evidence of acute pathology within the chest. - DUPLEX (11/13): No evidence of deep venous thrombosis. - ECHO: Technically limited, LVEF 55-60% ASSESSMENT/PLAN: Patient is a 47y/o F with PMHx of recurrent asthma exacerbations and hospitalizations, (never intubated), DM, HIV (on genvoya), anemia and chronic epigastric pain, presenting to ER with worsening SOB at rest for past 2 days 1. Acute asthma exacerbation - Continue SoluMedrol 40 mg IVPUSH Q8H - Completed 5 day course of Azithromycin and Ceftriaxone - Continue Duonebs Q4H, Symbicort 2 puffs bid - Supplemental oxygen as needed to maintain oxygen saturation - Peak flow measurement - Pulmonary consulted, appreciated recs - ABG - CT Chest, 2D Echo reviewed 2. Right heart dysfunction - Pedal Edema Right worse than left - Continue Bipap HS - Started on Lasix 20mg IV ONCE 3. Possible Oral candidiasis - No Oral thrush on exam however patient insists on hx of recurrent oral candidiasis - CD4 count 192 - Continue Diflucan 100 mg PO DAILY (Day 4) 4. Microcytic anemia - MCV: 67.8 - Iron studies pending 5. HIV - Cont genovya - CD4 count - viral load 6. DM - ISS, BGM - A1c: 6.6% - Diabetic diet - Continue Insulin Novolog Sliding Scale SQ ACHS - Continue Insulin Levemir 15 units SQ HS 7. H. Pylori - Triple therapy, substitute Azithromycin for Clartithromycin, Hold ampicillin, Finished tx (11/14) 8. FEN - No fluids indicated - Lytes WNL - Diabetic/sodium restricted diet 9. PPx - Heparin 5000 TID SQ - PPI while on steroids Visit type - Emergency Visit Emergency Visit: Yes ED Registration Date: 11/10/17 Care time: The patient presented to the Emergency Department on the above date and was hospitalized for further evaluation of their emergent condition. - New Patient This patient is new to me today: No - Critical Care Critical Care patient: No
[2017-11-19] MEDS: INSULIN (LEVEMIR) 100 UNITS/ML UNITS SQ SCH (21:17)
[2017-11-19] MEDS: MONTELUKAST NA 10 MG TABLET PO SCH (21:18)
[2017-11-20] MEDS: methylPREDNISolone NA SUCC 40 MG/1 ML VIAL IVPUSH SCH ×3 (01:53→22:04)
[2017-11-20] MEDS: HEPARIN NA (PORCINE) 5,000 UNITS/ML 1ML VIAL SQ SCH ×3 (06:31→22:04)
[2017-11-20] MEDS: INSULIN SLIDING SCALE (NOVOLOG) 1 VIAL SQ SCH ×4 (06:31→22:03)
[2017-11-20 08:14] LABS: HEMATOCRIT 35.6 % (32.4-45.2); HEMOGLOBIN 10.8 GM/dL (10.7-15.3); MCH 20.6 pg (25.7-33.7); MCHC 30.4 g/dl (32.0-36.0); MEAN CELL VOLUME 67.9 fl (80-96); MEAN PLT VOLUME 8.2 fl (7.5-11.1); PLATELET COUNT 334 K/MM3 (134-434); RBC 5.25 M/mm3 (3.60-5.2); RDW 19.5 % (11.6-15.6); WHITE BLOOD COUNT 18.2 K/mm3 (4.0-10.0)
[2017-11-20 08:20] LABS: ADD RBC MORPHOLOGY YES
[2017-11-20] MEDS: ACETYLCYSTEINE 20% 200MG/ML 4 ML VIAL *FOR ORAL / INH USE ONLY NEB SCH ×4 (08:30→20:35)
[2017-11-20] MEDS: ALBUTEROL SO4 0.083% IH SOL 2.5 MG/3 ML VIAL.NEB. NEB SCH ×4 (08:30→20:36)
[2017-11-20 08:36] LABS: ALK PHOS 40 U/L (45-117); ANION GAP 9 (8-16); BILIRUBIN,TOTAL 0.3 mg/dL (0.2-1.0); BLOOD UREA NITROGEN 18 mg/dL (7-18); CALCIUM 8.3 mg/dL (8.5-10.1); CHLORIDE 105 mmol/L (98-107); CO2 27 mmol/L (21-32); CREATININE 0.8 mg/dL (0.55-1.02); GLUCOSE,RANDOM 215 mg/dL (74-106); MAGNESIUM 2.5 mg/dL (1.8-2.4); PHOSPHOROUS 2.7 mg/dL (2.5-4.9); POTASSIUM 4.5 mmol/L (3.5-5.1); SGOT/AST 7 U/L (15-37); SGPT/ALT 33 U/L (12-78); SODIUM 141 mmol/L (136-145); TOT PROT 5.9 g/dl (6.4-8.2)
[2017-11-20 09:13] LABS: ANISOCYTOSIS 1+; OVALOCYTE 1+; PLATELET ESTIMATE ADEQUATE; TARGET CELLS 2+
[2017-11-20] MEDS ORDERED: PT OWN MED DRAWER 7, Y5N ONE ×3 (09:25→21:09)
[2017-11-20] MEDS: FLUCONAZOLE 100 MG TABLET (UD) PO SCH (09:27)
[2017-11-20] MEDS: TIOTROPIUM BROMIDE 18 MCG CAPSULES IH SCH (09:28)
[2017-11-20] MEDS: BUDESONIDE/FORMETEROL FUMARATE 160/4.5 mcg INHALER IH SCH ×2 (09:28→22:02)
[2017-11-20] MEDS: NYSTATIN POWDER 100,000 UNITS/GM - 15 GM TOPICAL POWDER TP SCH (09:30)
[2017-11-20] MEDS: PANTOPRAZOLE 40 MG TABLET (FP) PO SCH ×2 (09:31→22:01)
[2017-11-20] MEDS: PATIENT'S OWN MEDICATION (NON-FORMULARY) (Elviteg/Cob/Emtri/Tenof Alafen [Genvoya (Non-For PO SCH (09:32)
--- NOTE | 2017-11-20 11:19 | PN ---
Progress Note, Physician History of Present Illness: pulmonary alert,less dyspneic,+ cough - Current Medication List Current Medications: Active Medications Acetaminophen (Tylenol -) 650 mg PO Q4H PRN PRN Reason: PAIN Last Admin: 11/18/17 21:31 Dose: 650 mg Acetylcysteine (Mucomyst 20 Oral / Inh Use Only*) 200 mg NEB RQID [facility] Last Admin: 11/20/17 08:30 Dose: 200 mg Albuterol Sulfate (Ventolin 0.083% Nebulizer Soln -) 1 amp NEB RQID [facility] Last Admin: 11/20/17 08:30 Dose: 1 amp Budesonide/Formoterol Fumarate (Symbicort 160/4.5mcg -) 2 puff IH BID [facility] Last Admin: 11/20/17 09:28 Dose: 2 puff Fluconazole (Diflucan -) 100 mg PO DAILY [facility] Last Admin: 11/20/17 09:27 Dose: 100 mg Heparin Sodium (Porcine) (Heparin -) 5,000 unit SQ TID [facility] Last Admin: 11/20/17 06:31 Dose: 5,000 unit Insulin Aspart (Novolog Vial Sliding Scale -) 1 vial SQ [facility]; Protocol Last Admin: 11/20/17 06:31 Dose: 4 units Insulin Detemir (Levemir Vial) 15 units SQ [facility] Last Admin: 11/19/17 21:17 Dose: 15 units Methylprednisolone Sodium Succinate (Solu-Medrol -) 40 mg IVPUSH Q8H-IV [facility] Last Admin: 11/20/17 09:27 Dose: 40 mg Montelukast Sodium (Singulair -) 10 mg PO [facility] Last Admin: 11/19/17 21:18 Dose: 10 mg Non-Formulary Medication (Elviteg/Cob/Emtri/Tenof Alafen [Genvoya (Non-Formulary )]) 1 tab PO DAILY [facility] Last Admin: 11/20/17 09:32 Dose: 1 tab Nystatin (Nystop Powder -) 1 applic TP DAILY [facility] Last Admin: 11/20/17 09:30 Dose: 1 applic Pantoprazole Sodium (Protonix -) 40 mg PO BID [facility] Last Admin: 11/20/17 09:31 Dose: 40 mg Tiotropium [place] (Spiriva -) 1 puff IH DAILY [facility] Last Admin: 11/20/17 09:28 Dose: 1 cap - Objective Vital Signs: Vital Signs Temperature 98.0 F 11/20/17 09:40 Pulse Rate 64 11/20/17 09:40 Respiratory Rate 18 11/20/17 09:40 Blood Pressure 138/83 11/20/17 09:40 O2 Sat by Pulse Oximetry (%) 95 11/19/17 21:00 Constitutional: Yes: Well Nourished, Calm, Obese Eyes: Yes: WNL HENT: Yes: WNL Neck: Yes: WNL Cardiovascular: Yes: Regular Rate and Rhythm, S1, S2 Respiratory: Yes: Wheezes (few scattered wheezes) Gastrointestinal: Yes: Normal Bowel Sounds, Soft Extremities: Yes: WNL Edema: Yes Labs: CBC, BMP 11/20/17 07:15 11/20/17 07:15 Assessment/Plan Problem List - Problems (1) Asthma exacerbation Code(s): J45.901 - UNSPECIFIED ASTHMA WITH (ACUTE) EXACERBATION Qualifiers: Asthma severity: unspecified severity Asthma persistence: unspecified Qualified Code(s): J45.901 - Unspecified asthma with (acute) exacerbation (2) Acute bronchitis Code(s): J20.9 - ACUTE BRONCHITIS, UNSPECIFIED (3) HIV (human immunodeficiency virus infection) Code(s): Z21 - ASYMPTOMATIC HUMAN IMMUNODEFICIENCY VIRUS INFECTION STATUS (4) Obesity Code(s): E66.9 - OBESITY, UNSPECIFIED Qualifiers: Obesity type: unspecified obesity type Obesity classification: adult class 3 (BMI >= 40) Serious obesity comorbidity presence: unspecified whether serious comorbidity present Body mass index: BMI 60.0-69.9 Qualified Code(s) : E66.9 - Obesity, unspecified; Z68.44 - Body mass index (BMI) 60.0-69.9, adult (5) Sleep apnea, obstructive Code(s): G47.33 - OBSTRUCTIVE SLEEP APNEA (ADULT) (PEDIATRIC) Assessment/Plan Acute Asthma Exacerbation slowly improving Acute Bronchitis HIV DM Morbid Obesity Obstructive Sleep Apnea - mucomyst with albuterol nebs - spiriva - singulair - inhaled bronchodilators standing and PRN - steroids same dose - monitor peak flow - BiPAP at night - outpt PFTs, allergy testing, IgE level, RAST when off steroids - DVT prophylaxis DR GREENWOOD
[2017-11-20] MEDS ORDERED: INSULIN (NOVOLOG) ASPART 100 UNITS/ML 10ML VIAL ONE (11:57)
--- NOTE | 2017-11-20 13:41 | PN ---
Physical Exam: SUBJECTIVE: Patient seen and examined this morning. She did not use her Bipap over night because she says she did not sleep. Was able to ambulate to the elevator. She continues to feel tightness with coughing and SOB. Additionally complains of Headache and Right sided flank pain. Denies fevers, chills, nausea, vomiting, diarrhea, constipation. OBJECTIVE: Vital Signs Period Temp Pulse Resp BP Sys/So Pulse Ox Last 24 Hr 97.6 F-98.5 F 63-101 18-20 133-158/62-83 95-95 GENERAL: The patient is awake, alert, and fully oriented, in no acute distress. LUNGS: Breath sounds equal, Diffuse Upper chest wheezing heard HEART: Regular rate and rhythm, S1, S2 without murmur, rub or gallop. ABDOMEN: Obese, Soft, nontender, nondistended, normoactive bowel sounds EXTREMITIES: 2+ Pitting Edema remains Laboratory Results - last 24 hr 11/19/17 11/19/17 11/20/17 17:20 21:16 06:28 WBC RBC Hgb Hct MCV MCH MCHC RDW Plt Count MPV Absolute Neuts (auto) Total Counted Neutrophils % Neutrophils % (Manual) Band Neutrophils % Lymphocytes % Lymphocytes % (Manual) Monocytes % (Manual) Nucleated RBC % Hypochromia Platelet Estimate Platelet Comment Polychromasia Poikilocytosis Anisocytosis Microcytosis Target Cells Ovalocytes Sodium Potassium Chloride Carbon Dioxide Anion Gap BUN Creatinine Creat Clearance w eGFR POC Glucometer 227 318 218 Random Glucose Calcium Phosphorus Magnesium Total Bilirubin AST ALT Alkaline Phosphatase Total Protein Albumin 11/20/17 11/20/17 11/20/17 07:15 07:15 11:53 WBC 18.2 H RBC 5.25 H Hgb 10.8 Hct 35.6 MCV 67.9 L MCH 20.6 L MCHC 30.4 L RDW 19.5 H Plt Count 334 MPV 8.2 Absolute Neuts (auto) 16.2 Total Counted 100 Neutrophils % No Result Required. Neutrophils % (Manual) 82.0 Band Neutrophils % 2.0 Lymphocytes % No Result Required. Lymphocytes % (Manual) 11.0 D Monocytes % (Manual) 5 Nucleated RBC % 0 Hypochromia 2+ Platelet Estimate Adequate Platelet Comment No clumping noted Polychromasia 1+ Poikilocytosis 1+ Anisocytosis 1+ Microcytosis 1+ Target Cells 2+ Ovalocytes 1+ Sodium 141 Potassium 4.5 Chloride 105 Carbon Dioxide 27 Anion Gap 9 BUN 18 Creatinine 0.8 Creat Clearance w eGFR > 60 POC Glucometer 200 Random Glucose 215 H Calcium 8.3 L Phosphorus 2.7 Magnesium 2.5 H Total Bilirubin 0.3 AST 7 L ALT 33 Alkaline Phosphatase 40 L D Total Protein 5.9 L Albumin 3.0 L Active Medications Acetaminophen (Tylenol -) 650 mg PO Q4H PRN PRN Reason: PAIN Last Admin: 11/18/17 21:31 Dose: 650 mg Acetylcysteine (Mucomyst 20 Oral / Inh Use Only*) 200 mg NEB RQID [facility] Last Admin: 11/20/17 12:21 Dose: 200 mg Albuterol Sulfate (Ventolin 0.083% Nebulizer Soln -) 1 amp NEB RQID [facility] Last Admin: 11/20/17 12:21 Dose: 1 amp Budesonide/Formoterol Fumarate (Symbicort 160/4.5mcg -) 2 puff IH BID [facility] Last Admin: 11/20/17 09:28 Dose: 2 puff Fluconazole (Diflucan -) 100 mg PO DAILY [facility] Last Admin: 11/20/17 09:27 Dose: 100 mg Heparin Sodium (Porcine) (Heparin -) 5,000 unit SQ TID [facility] Last Admin: 11/20/17 06:31 Dose: 5,000 unit Insulin Aspart (Novolog Vial Sliding Scale -) 1 vial SQ [facility]; Protocol Last Admin: 11/20/17 11:58 Dose: 2 units Insulin Detemir (Levemir Vial) 15 units SQ [facility] Last Admin: 11/19/17 21:17 Dose: 15 units Methylprednisolone Sodium Succinate (Solu-Medrol -) 40 mg IVPUSH Q12H [facility] Montelukast Sodium (Singulair -) 10 mg PO [facility] Last Admin: 11/19/17 21:18 Dose: 10 mg Non-Formulary Medication (Elviteg/Cob/Emtri/Tenof Alafen [Genvoya (Non-Formulary )]) 1 tab PO DAILY [facility] Last Admin: 11/20/17 09:32 Dose: 1 tab Nystatin (Nystop Powder -) 1 applic TP DAILY [facility] Last Admin: 11/20/17 09:30 Dose: 1 applic Pantoprazole Sodium (Protonix -) 40 mg PO BID [facility] Last Admin: 11/20/17 09:31 Dose: 40 mg Tiotropium [place] (Spiriva -) 1 puff IH DAILY [facility] Last Admin: 11/20/17 09:28 Dose: 1 cap IMAGING: - CXR (11/10): Excessive soft tissues. No acute pathology. No change of an adverse nature since 07/26/2016 - Chest CT (11/13): Limited study with no evidence of acute pathology within the chest. - DUPLEX (11/13): No evidence of deep venous thrombosis. - ECHO: Technically limited, LVEF 55-60% ASSESSMENT/PLAN: 47y/o F with PMHx of recurrent asthma exacerbations and hospitalizations, ( never intubated), DM, HIV (on genvoya), anemia and chronic epigastric pain, presenting to ER with worsening SOB at rest for past 2 days 1. Acute asthma exacerbation - Decreased SoluMedrol 40 mg IVPUSH to BID - Completed 5 day course of Azithromycin and Ceftriaxone - Continue Duonebs Q4H, Symbicort 2 puffs bid - Supplemental oxygen as needed to maintain oxygen saturation - Peak flow measurement - Pulmonary consulted, appreciated recs - ABG - CT Chest, 2D Echo reviewed 2. Right heart dysfunction - Pedal Edema Right worse than left - Continue Bipap HS - Started on Lasix 20mg IV ONCE 3. Possible Oral candidiasis - No Oral thrush on exam however patient insists on hx of recurrent oral candidiasis - CD4 count 192 - Continue Diflucan 100 mg PO DAILY (Day 4) 4. Microcytic anemia - MCV: 67.8 - Iron studies pending 5. HIV - Cont genovya - CD4 count - viral load 6. DM - ISS, BGM - A1c: 6.6% - Diabetic diet - Continue Insulin Novolog Sliding Scale SQ ACHS - Continue Insulin Levemir 15 units SQ HS 7. H. Pylori - Triple therapy, substitute Azithromycin for Clartithromycin, Hold ampicillin, Finished tx (11/14) 8. FEN - No fluids indicated - Lytes WNL - Diabetic/sodium restricted diet 9. PPx - Heparin 5000 TID SQ - PPI while on steroids Visit type - Emergency Visit Emergency Visit: Yes ED Registration Date: 11/10/17 Care time: The patient presented to the Emergency Department on the above date and was hospitalized for further evaluation of their emergent condition. - New Patient This patient is new to me today: No - Critical Care Critical Care patient: No
--- NOTE | 2017-11-20 14:40 | PN ---
Teaching Attending Note Name of Resident: Luz Wagoner ATTENDING PHYSICIAN STATEMENT I saw and evaluated the patient. I reviewed the resident's note and discussed the case with the resident. I agree with the resident's findings and plan as documented. SUBJECTIVE:states feels slightly better than yesterday, was able to ambulate to bathroom with minimal exertion. continues to ahev cough but not productive. denies CP, SOB, Fever, chills, n/V/C/D OBJECTIVE: Last Vital Signs Temp Pulse Resp BP Pulse Ox 98.4 F 78 18 136/80 96 11/20/17 13:46 11/20/17 13:46 11/20/17 13:46 11/20/17 13:46 11/20/17 09:00 General NAD CV S1 S2 RRR no murmur/rub/gallop +chest wall tenderness lungs CTA B/L poor inspiratory effort Extremities trace pitting edema ASSESSMENT AND PLAN: 47yo F with PMH morbid obesity, asthma, HIV and anemia currently on treatment for H. pylori presented to the ER with wheezing 1. Acute asthma exacerbation- slowly improving. able to ambulate to the bathroom. will decrease solumedrol to 40mg BID, cont inhlaers, sinulair, nebs prn. completed abx course. will need outpatient PFT. pulm on board 2. Oral candidasis- on fluconazole day 4 3. Microcytic anemia- no signs of bleeding,. Hgb stable. 4. Pre-diabetic- A1c 6.6. diabetic teaching, diabetic diet. educated on risks assoc with uncontrolled sugars. will need repeat A1c in 3 months and evaluate if would benefit from medication 5. Hpylori- completed triple therapy here. will cont protonix while on steroids. 6. HIV- on HARRT 7. morbid obesity- BMI 62. not interested in bariatric surgery 8. DVT ppx- hep sq
[2017-11-20] MEDS: ACETAMINOPHEN 325 MG TABLET (FP) PO PRN (22:01)
[2017-11-20] MEDS: INSULIN (LEVEMIR) 100 UNITS/ML UNITS SQ SCH (22:03)
[2017-11-20] MEDS: MONTELUKAST NA 10 MG TABLET PO SCH (22:04)
[2017-11-21] MEDS: HEPARIN NA (PORCINE) 5,000 UNITS/ML 1ML VIAL SQ SCH ×3 (06:52→22:06)
[2017-11-21] MEDS: INSULIN SLIDING SCALE (NOVOLOG) 1 VIAL SQ SCH ×4 (06:54→22:15)
[2017-11-21] MEDS: ALBUTEROL SO4 0.083% IH SOL 2.5 MG/3 ML VIAL.NEB. NEB SCH ×4 (07:01→21:20)
[2017-11-21] MEDS: ACETYLCYSTEINE 20% 200MG/ML 4 ML VIAL *FOR ORAL / INH USE ONLY NEB SCH ×4 (07:01→21:20)
--- NOTE | 2017-11-21 08:49 | PN ---
Physical Exam: SUBJECTIVE: Patient seen and examined this morning sitting up in her chair. Wore her bipap overnight and slept 7 hours. Continues to complain of right sided back pain, 4/10, feels like a pinch but does not radiate anywhere. Able to ambulate to the solarium. As per nursing, patient was given a tylenol for chest tightness overnight. Continues to complain of tightness with inhalation. OBJECTIVE: Vital Signs Period Temp Pulse Resp BP Sys/So Pulse Ox Last 24 Hr 97.6 F-98.4 F 64-78 18-18 124-158/69-83 96-96 GENERAL: The patient is awake, alert, and fully oriented, in no acute distress. LUNGS: Breath sounds equal, Diffuse Upper chest wheezing heard HEART: Regular rate and rhythm, S1, S2 without murmur, rub or gallop. ABDOMEN: Obese, Soft, nontender, nondistended, normoactive bowel sounds EXTREMITIES: 2+ Pitting Edema remains Laboratory Results - last 24 hr 11/20/17 11/20/17 11/20/17 07:15 11:53 16:36 Total Counted 100 Neutrophils % (Manual) 82.0 Band Neutrophils % 2.0 Lymphocytes % (Manual) 11.0 D Monocytes % (Manual) 5 Hypochromia 2+ Platelet Estimate Adequate Platelet Comment No clumping noted Polychromasia 1+ Poikilocytosis 1+ Anisocytosis 1+ Microcytosis 1+ Target Cells 2+ Ovalocytes 1+ POC Glucometer 200 286 11/20/17 11/21/17 22:00 06:37 Total Counted Neutrophils % (Manual) Band Neutrophils % Lymphocytes % (Manual) Monocytes % (Manual) Hypochromia Platelet Estimate Platelet Comment Polychromasia Poikilocytosis Anisocytosis Microcytosis Target Cells Ovalocytes POC Glucometer 282 179 Microbiology 11/14/17 06:45 Sputum - Expectorated Gram Stain - Final 11/14/17 06:45 Sputum - Expectorated Sputum Culture - Final NORMAL RESPIRATORY DEEP 11/13/17 18:20 Urine For Antigen Detection Legionella Antigen - Final 11/13/17 18:20 Urine For Antigen Detection Streptococcus pneumoniae Antigen (M - Final Active Medications Acetaminophen (Tylenol -) 650 mg PO Q4H PRN PRN Reason: PAIN Last Admin: 11/20/17 22:01 Dose: 650 mg Acetylcysteine (Mucomyst 20 Oral / Inh Use Only*) 200 mg NEB RQID [facility] Last Admin: 11/21/17 07:01 Dose: 200 mg Albuterol Sulfate (Ventolin 0.083% Nebulizer Soln -) 1 amp NEB RQID [facility] Last Admin: 11/21/17 07:01 Dose: 1 amp Budesonide/Formoterol Fumarate (Symbicort 160/4.5mcg -) 2 puff IH BID [facility] Last Admin: 11/20/17 22:02 Dose: 2 puff Fluconazole (Diflucan -) 100 mg PO DAILY [facility] Last Admin: 11/20/17 09:27 Dose: 100 mg Heparin Sodium (Porcine) (Heparin -) 5,000 unit SQ TID [facility] Last Admin: 11/21/17 06:52 Dose: 5,000 unit Insulin Aspart (Novolog Vial Sliding Scale -) 1 vial SQ [facility]; Protocol Last Admin: 11/21/17 06:54 Dose: 2 units Insulin Detemir (Levemir Vial) 15 units SQ HS [facility] Last Admin: 11/20/17 22:03 Dose: 15 units Methylprednisolone Sodium Succinate (Solu-Medrol -) 40 mg IVPUSH BID [facility] Last Admin: 11/20/17 22:04 Dose: 40 mg Montelukast Sodium (Singulair -) 10 mg PO HS [facility] Last Admin: 11/20/17 22:04 Dose: 10 mg Non-Formulary Medication (Elviteg/Cob/Emtri/Tenof Alafen [Genvoya (Non-Formulary )]) 1 tab PO DAILY [facility] Last Admin: 11/20/17 09:32 Dose: 1 tab Nystatin (Nystop Powder -) 1 applic TP DAILY [facility] Last Admin: 11/20/17 09:30 Dose: 1 applic Pantoprazole Sodium (Protonix -) 40 mg PO DAILY [facility] Tiotropium [place] (Spiriva -) 1 puff IH DAILY [facility] Last Admin: 11/20/17 09:28 Dose: 1 cap IMAGING: - CXR (11/10): Excessive soft tissues. No acute pathology. No change of an adverse nature since 07/26/2016 - Chest CT (11/13): Limited study with no evidence of acute pathology within the chest. - DUPLEX (11/13): No evidence of deep venous thrombosis. - ECHO: Technically limited, LVEF 55-60% ASSESSMENT/PLAN: 47y/o F with PMHx of recurrent asthma exacerbations and hospitalizations, ( never intubated), DM, HIV (on genvoya), anemia and chronic epigastric pain, presenting to ER with worsening SOB at rest for past 2 days 1. Acute asthma exacerbation - Continue SoluMedrol 40 mg BID - Completed 5 day course of Azithromycin and Ceftriaxone - Continue Duonebs Q4H, Symbicort 2 puffs bid - Supplemental oxygen as needed to maintain oxygen saturation - Peak flow measurement - Pulmonary consulted, appreciated recs - ABG - CT Chest, 2D Echo reviewed - Incentive spirometry ordered 2. Right heart dysfunction - Pedal Edema improved - Continue Bipap HS - Was given one dose Lasix 20mg IV (11/19) 3. Possible Oral candidiasis - No Oral thrush on exam however patient insists on hx of recurrent oral candidiasis - CD4 count 192 - Continue Diflucan 100 mg PO DAILY (Day 5) to complete a 7 day course 4. Microcytic anemia - MCV: 67.8 - Iron studies pending 5. HIV - Cont genovya - CD4 count 192 - viral load 6. DM - ISS, BGM - A1c: 6.6% - Diabetic diet - Continue Insulin Novolog Sliding Scale SQ ACHS - Continue Insulin Levemir 15 units SQ [facility] 7. H. Pylori - Triple therapy, substitute Azithromycin for Clartithromycin, Hold ampicillin, Finished tx (11/14) 8. FEN - No fluids indicated - Lytes WNL - Diabetic/sodium restricted diet 9. PPx - Heparin 5000 TID SQ - PPI while on steroids Visit type - Emergency Visit Emergency Visit: Yes ED Registration Date: 11/10/17 Care time: The patient presented to the Emergency Department on the above date and was hospitalized for further evaluation of their emergent condition. - New Patient This patient is new to me today: No - Critical Care Critical Care patient: No
[2017-11-21] MEDS: BUDESONIDE/FORMETEROL FUMARATE 160/4.5 mcg INHALER IH SCH ×2 (11:14→22:16)
[2017-11-21] MEDS: TIOTROPIUM BROMIDE 18 MCG CAPSULES IH SCH (11:15)
[2017-11-21] MEDS: FLUCONAZOLE 100 MG TABLET (UD) PO SCH (11:15)
[2017-11-21] MEDS: PATIENT'S OWN MEDICATION (NON-FORMULARY) (Elviteg/Cob/Emtri/Tenof Alafen [Genvoya (Non-For PO SCH (11:15)
[2017-11-21] MEDS: methylPREDNISolone NA SUCC 40 MG/1 ML VIAL IVPUSH SCH ×2 (11:16→22:06)
[2017-11-21] MEDS: PANTOPRAZOLE 40 MG TABLET (FP) PO SCH (11:16)
[2017-11-21] MEDS: NYSTATIN POWDER 100,000 UNITS/GM - 15 GM TOPICAL POWDER TP SCH (11:17)
--- NOTE | 2017-11-21 12:00 | PN ---
Progress Note, Physician History of Present Illness: pulmonary alert,feeling better,less dyspneic,ambulating - Current Medication List Current Medications: Active Medications Acetaminophen (Tylenol -) 650 mg PO Q4H PRN PRN Reason: PAIN Last Admin: 11/20/17 22:01 Dose: 650 mg Acetylcysteine (Mucomyst 20 Oral / Inh Use Only*) 200 mg NEB RQID [facility] Last Admin: 11/21/17 11:01 Dose: 200 mg Albuterol Sulfate (Ventolin 0.083% Nebulizer Soln -) 1 amp NEB RQID [facility] Last Admin: 11/21/17 11:01 Dose: 1 amp Budesonide/Formoterol Fumarate (Symbicort 160/4.5mcg -) 2 puff IH BID [facility] Last Admin: 11/21/17 11:14 Dose: 2 puff Fluconazole (Diflucan -) 100 mg PO DAILY [facility] Last Admin: 11/21/17 11:15 Dose: 100 mg Heparin Sodium (Porcine) (Heparin -) 5,000 unit SQ TID [facility] Last Admin: 11/21/17 06:52 Dose: 5,000 unit Insulin Aspart (Novolog Vial Sliding Scale -) 1 vial SQ [facility]; Protocol Last Admin: 11/21/17 06:54 Dose: 2 units Insulin Detemir (Levemir Vial) 15 units SQ [facility] Last Admin: 11/20/17 22:03 Dose: 15 units Methylprednisolone Sodium Succinate (Solu-Medrol -) 40 mg IVPUSH BID [facility] Last Admin: 11/21/17 11:16 Dose: 40 mg Montelukast Sodium (Singulair -) 10 mg PO HS [facility] Last Admin: 11/20/17 22:04 Dose: 10 mg Non-Formulary Medication (Elviteg/Cob/Emtri/Tenof Alafen [Genvoya (Non-Formulary )]) 1 tab PO DAILY [facility] Last Admin: 11/21/17 11:15 Dose: 1 tab Nystatin (Nystop Powder -) 1 applic TP DAILY [facility] Last Admin: 11/21/17 11:17 Dose: 1 applic Pantoprazole Sodium (Protonix -) 40 mg PO DAILY [facility] Last Admin: 11/21/17 11:16 Dose: 40 mg Tiotropium [place] (Spiriva -) 1 puff IH DAILY [facility] Last Admin: 11/21/17 11:15 Dose: 1 cap - Objective Vital Signs: Vital Signs Temperature 97.7 F 11/21/17 10:00 Pulse Rate 70 11/21/17 10:00 Respiratory Rate 20 11/21/17 10:00 Blood Pressure 155/78 11/21/17 10:00 O2 Sat by Pulse Oximetry (%) 96 11/20/17 21:00 Constitutional: Yes: Well Nourished, Calm, Obese Eyes: Yes: WNL HENT: Yes: WNL Neck: Yes: WNL Cardiovascular: Yes: Regular Rate and Rhythm, S1, S2 Respiratory: Yes: Diminished Gastrointestinal: Yes: Normal Bowel Sounds, Soft Extremities: Yes: WNL Edema: Yes Labs: Assessment/Plan Problem List - Problems (1) Asthma exacerbation Code(s): J45.901 - UNSPECIFIED ASTHMA WITH (ACUTE) EXACERBATION Qualifiers: Asthma severity: unspecified severity Asthma persistence: unspecified Qualified Code(s): J45.901 - Unspecified asthma with (acute) exacerbation (2) Acute bronchitis Code(s): J20.9 - ACUTE BRONCHITIS, UNSPECIFIED (3) HIV (human immunodeficiency virus infection) Code(s): Z21 - ASYMPTOMATIC HUMAN IMMUNODEFICIENCY VIRUS INFECTION STATUS (4) Obesity Code(s): E66.9 - OBESITY, UNSPECIFIED Qualifiers: Obesity type: unspecified obesity type Obesity classification: adult class 3 (BMI >= 40) Serious obesity comorbidity presence: unspecified whether serious comorbidity present Body mass index: BMI 60.0-69.9 Qualified Code(s) : E66.9 - Obesity, unspecified; Z68.44 - Body mass index (BMI) 60.0-69.9, adult (5) Sleep apnea, obstructive Code(s): G47.33 - OBSTRUCTIVE SLEEP APNEA (ADULT) (PEDIATRIC) Assessment/Plan Acute Asthma Exacerbation improving Acute Bronchitis HIV DM Morbid Obesity Obstructive Sleep Apnea - mucomyst with albuterol nebs - spiriva - singulair - inhaled bronchodilators standing and PRN - steroid taper - monitor peak flow - BiPAP at night - outpt PFTs, allergy testing, IgE level, RAST when off steroids - DVT prophylaxis DR GREENWOOD
--- NOTE | 2017-11-21 13:11 | PN ---
Teaching Attending Note Name of Resident: Luz Wagoner ATTENDING PHYSICIAN STATEMENT I saw and evaluated the patient. I reviewed the resident's note and discussed the case with the resident. I agree with the resident's findings and plan as documented. SUBJECTIVE:no change from yesterday. says she was able to ambulate from elevator to solarium without difficulty. continues to have pleuritic CP when coughing. dry cough. denies fever, chills, N/V/C/D OBJECTIVE: Last Vital Signs Temp Pulse Resp BP Pulse Ox 98.2 F 74 20 143/76 96 11/21/17 13:04 11/21/17 13:04 11/21/17 13:04 11/21/17 13:04 11/20/17 21:00 General NAD HEENT no oral plaquing CV S1 S2 RRR no murmur/rub/gallop +chest wall tenderness lungs CTA B/L poor inspiratory effort Extremities trace pitting edema ASSESSMENT AND PLAN: 47yo F with PMH morbid obesity, asthma, HIV and anemia currently on treatment for H. pylori presented to the ER with wheezing 1. Acute asthma exacerbation- slowly improving. cont with medrol 40mg BID, inhalers, sinulair, nebs prn. completed abx course. will need outpatient PFT. pulm on board 2. Oral candidasis- on fluconazole day 5. will complete 7 day course 3. Microcytic anemia- no signs of bleeding,. Hgb stable. 4. Pre-diabetic- A1c 6.6. diabetic teaching, diabetic diet. educated on risks assoc with uncontrolled sugars. will need repeat A1c in 3 months and evaluate if would benefit from medication 5. Hpylori- completed triple therapy here. will cont protonix while on steroids. 6. HIV- on HARRT 7. morbid obesity- BMI 62. not interested in bariatric surgery 8. DVT ppx- hep sq
[2017-11-21] MEDS: ACETAMINOPHEN 325 MG TABLET (FP) PO PRN ×2 (16:43→22:04)
[2017-11-21] MEDS: MONTELUKAST NA 10 MG TABLET PO SCH (22:04)
[2017-11-21] MEDS: INSULIN (LEVEMIR) 100 UNITS/ML UNITS SQ SCH (22:05)
[2017-11-22] MEDS: HEPARIN NA (PORCINE) 5,000 UNITS/ML 1ML VIAL SQ SCH ×3 (06:29→22:00)
[2017-11-22] MEDS: INSULIN SLIDING SCALE (NOVOLOG) 1 VIAL SQ SCH ×4 (06:34→22:00)
[2017-11-22] MEDS: ACETYLCYSTEINE 20% 200MG/ML 4 ML VIAL *FOR ORAL / INH USE ONLY NEB SCH ×4 (08:51→20:50)
[2017-11-22] MEDS: ALBUTEROL SO4 0.083% IH SOL 2.5 MG/3 ML VIAL.NEB. NEB SCH ×2 (08:51→12:38)
[2017-11-22] MEDS: BUDESONIDE/FORMETEROL FUMARATE 160/4.5 mcg INHALER IH SCH ×2 (09:53→22:01)
[2017-11-22] MEDS: FLUCONAZOLE 100 MG TABLET (UD) PO SCH (09:53)
[2017-11-22] MEDS: PATIENT'S OWN MEDICATION (NON-FORMULARY) (Elviteg/Cob/Emtri/Tenof Alafen [Genvoya (Non-For PO SCH (09:54)
[2017-11-22] MEDS: predniSONE 20 MG TABLET (UD) PO SCH (09:54)
[2017-11-22] MEDS: TIOTROPIUM BROMIDE 18 MCG CAPSULES IH SCH (09:54)
[2017-11-22] MEDS: PANTOPRAZOLE 40 MG TABLET (FP) PO SCH (09:55)
[2017-11-22] MEDS: NYSTATIN POWDER 100,000 UNITS/GM - 15 GM TOPICAL POWDER TP SCH (09:55)
[2017-11-22 11:13] LABS: URINE APPEARANCE CLEAR; URINE BILIRUBIN NEGATIVE (<2.0 mg/dL); URINE COLOR STRAW; URINE GLUCOSE (UA) 1+ (NEGATIVE); URINE KETONE NEGATIVE (NEGATIVE); URINE LEUK ESTERASE NEGATIVE (NEGATIVE); URINE NITRITE NEGATIVE (NEGATIVE); URINE PROTEIN NEGATIVE (NEGATIVE); URINE UROBILINOGEN NEGATIVE mg/dL (0.2-1.0)
--- NOTE | 2017-11-22 12:48 | PN ---
Physical Exam: SUBJECTIVE: Patient seen and examined this morning sitting up in her chair. Did not wear her bipap overnight becuase she could not sleep. She continues to use her incentive spirometer and is reaching between 750-1000. She continues to cough and it is productive of "Cottage cheese" phlegm. She feels mucus is trapped and not coming up. Denies any dysphagia. She additionally is feeling urinary frequency and urgency; as per patient, she urinated on herself three times. Continues to complain of right sided back pain, 4/10, feels like a pinch but does not radiate anywhere. Continues to complain of tightness with inhalation. Denies any fevers, chills, chest pain, nausea, vomiting. OBJECTIVE: Vital Signs Period Temp Pulse Resp BP Sys/So Pulse Ox Last 24 Hr 98.0 F-98.3 F 61-75 20-20 130-144/64-89 96 GENERAL: The patient is awake, alert, and fully oriented, in no acute distress. LUNGS: Breath sounds equal, Wheezing improved HEART: Regular rate and rhythm, S1, S2 without murmur, rub or gallop. ABDOMEN: Obese, Soft, nontender, nondistended, normoactive bowel sounds EXTREMITIES: 2+ Pitting Edema Laboratory Results - last 24 hr 11/21/17 11/21/17 11/22/17 16:41 22:02 06:33 POC Glucometer 280 206 170 Urine Color Urine Appearance Urine pH Ur Specific [place] Urine Protein Urine Glucose (UA) Urine Ketones Urine Blood Urine Nitrite Urine Bilirubin Urine Urobilinogen Ur Leukocyte Esterase 11/22/17 11/22/17 10:05 11:51 POC Glucometer 230 Urine Color Straw Urine Appearance Clear Urine pH 7.0 Ur Specific [place] 1.009 Urine Protein Negative Urine Glucose (UA) 1+ H Urine Ketones Negative Urine Blood Negative Urine Nitrite Negative Urine Bilirubin Negative Urine Urobilinogen Negative Ur Leukocyte Esterase Negative Active Medications Acetaminophen (Tylenol -) 650 mg PO Q4H PRN PRN Reason: PAIN Last Admin: 11/21/17 22:04 Dose: 650 mg Acetylcysteine (Mucomyst 20 Oral / Inh Use Only*) 200 mg NEB RQID KAREN Last Admin: 11/22/17 12:38 Dose: 200 mg Albuterol Sulfate (Ventolin 0.083% Nebulizer Soln -) 1 amp NEB RQID KAREN Last Admin: 11/22/17 12:38 Dose: 1 amp Budesonide/Formoterol Fumarate (Symbicort 160/4.5mcg -) 2 puff IH BID [facility] Last Admin: 11/22/17 09:53 Dose: 2 puff Fluconazole (Diflucan -) 100 mg PO DAILY [facility] Last Admin: 11/22/17 09:53 Dose: 100 mg Heparin Sodium (Porcine) (Heparin -) 5,000 unit SQ TID [facility] Last Admin: 11/22/17 06:29 Dose: 5,000 unit Insulin Aspart (Novolog Vial Sliding Scale -) 1 vial SQ ACHS [facility]; Protocol Last Admin: 11/22/17 12:25 Dose: 4 units Insulin Detemir (Levemir Vial) 15 units SQ HS [facility] Last Admin: 11/21/17 22:05 Dose: 15 units Montelukast Sodium (Singulair -) 10 mg PO HS [facility] Last Admin: 11/21/17 22:04 Dose: 10 mg Non-Formulary Medication (Elviteg/Cob/Emtri/Tenof Alafen [Genvoya (Non-Formulary )]) 1 tab PO DAILY [facility] Last Admin: 11/22/17 09:54 Dose: 1 tab Nystatin (Nystop Powder -) 1 applic TP DAILY [facility] Last Admin: 11/22/17 09:55 Dose: 1 applic Pantoprazole Sodium (Protonix -) 40 mg PO DAILY [facility] Last Admin: 11/22/17 09:55 Dose: 40 mg Prednisone (Deltasone -) 60 mg PO DAILY [facility] Last Admin: 11/22/17 09:54 Dose: 60 mg Tiotropium [place] (Spiriva -) 1 puff IH DAILY [facility] Last Admin: 11/22/17 09:54 Dose: 1 cap IMAGING: - CXR (11/10): Excessive soft tissues. No acute pathology. No change of an adverse nature since 07/26/2016 - Chest CT (11/13): Limited study with no evidence of acute pathology within the chest. - DUPLEX (11/13): No evidence of deep venous thrombosis. - ECHO: Technically limited, LVEF 55-60% ASSESSMENT/PLAN: 47y/o F with PMHx of recurrent asthma exacerbations and hospitalizations, ( never intubated), DM, HIV (on genvoya), anemia and chronic epigastric pain, presenting to ER with worsening SOB at rest for past 2 days 1. Acute asthma exacerbation - Changed IV SoluMedrol 40 mg BID to Deltasone 60 mg PO DAILY - Completed 5 day course of Azithromycin and Ceftriaxone - Continue Duonebs Q4H, Symbicort 2 puffs bid - Supplemental oxygen as needed to maintain oxygen saturation - Peak flow measurement - Pulmonary consulted, appreciated recs - ABG - CT Chest, 2D Echo reviewed - Incentive spirometry ordered 2. Urinary Urgency/Frequency - Patient complains of sx's and urinating on herself - UA Pending 3. Right heart dysfunction - Pedal Edema improved - Continue Bipap HS - Was given one dose Lasix 20mg IV (11/19) 4. Possible Oral candidiasis - No Oral thrush on exam however patient insists on hx of recurrent oral candidiasis - CD4 count 192 - Continue Diflucan 100 mg PO DAILY (Day 6) to complete a 7 day course 5. Microcytic anemia - MCV: 67.8 - Iron studies pending 6. HIV - Cont genovya - CD4 count 192 7. DM - ISS, BGM - A1c: 6.6% - Diabetic diet - Continue Insulin Novolog Sliding Scale SQ ACHS - Continue Insulin Levemir 15 units SQ HS 8. H. Pylori - Triple therapy, substitute Azithromycin for Clartithromycin, Hold ampicillin, Finished tx (11/14) 9. FEN - No fluids indicated - Lytes WNL - Diabetic/sodium restricted diet 10. PPx - Heparin 5000 TID SQ - PPI while on steroids Dispo: Likely D/C tmrw if she does well on PO Prednisone Visit type - Emergency Visit Emergency Visit: Yes ED Registration Date: 11/10/17 Care time: The patient presented to the Emergency Department on the above date and was hospitalized for further evaluation of their emergent condition. - New Patient This patient is new to me today: No - Critical Care Critical Care patient: No
--- NOTE | 2017-11-22 13:19 | PN ---
Progress Note, Physician History of Present Illness: pulmonary alert,feeling better,less dyspneic,less cough - Current Medication List Current Medications: Active Medications Acetaminophen (Tylenol -) 650 mg PO Q4H PRN PRN Reason: PAIN Last Admin: 11/21/17 22:04 Dose: 650 mg Acetylcysteine (Mucomyst 20 Oral / Inh Use Only*) 200 mg NEB RQID [facility] Last Admin: 11/22/17 12:38 Dose: 200 mg Albuterol Sulfate (Ventolin 0.083% Nebulizer Soln -) 1 amp NEB RQID [facility] Last Admin: 11/22/17 12:38 Dose: 1 amp Budesonide/Formoterol Fumarate (Symbicort 160/4.5mcg -) 2 puff IH BID [facility] Last Admin: 11/22/17 09:53 Dose: 2 puff Fluconazole (Diflucan -) 100 mg PO DAILY [facility] Last Admin: 11/22/17 09:53 Dose: 100 mg Heparin Sodium (Porcine) (Heparin -) 5,000 unit SQ TID [facility] Last Admin: 11/22/17 06:29 Dose: 5,000 unit Insulin Aspart (Novolog Vial Sliding Scale -) 1 vial SQ [facility]; Protocol Last Admin: 11/22/17 12:25 Dose: 4 units Insulin Detemir (Levemir Vial) 15 units SQ [facility] Last Admin: 11/21/17 22:05 Dose: 15 units Montelukast Sodium (Singulair -) 10 mg PO HS [facility] Last Admin: 11/21/17 22:04 Dose: 10 mg Non-Formulary Medication (Elviteg/Cob/Emtri/Tenof Alafen [Genvoya (Non-Formulary )]) 1 tab PO DAILY [facility] Last Admin: 11/22/17 09:54 Dose: 1 tab Nystatin (Nystop Powder -) 1 applic TP DAILY [facility] Last Admin: 11/22/17 09:55 Dose: 1 applic Pantoprazole Sodium (Protonix -) 40 mg PO DAILY [facility] Last Admin: 11/22/17 09:55 Dose: 40 mg Prednisone (Deltasone -) 60 mg PO DAILY [facility] Last Admin: 11/22/17 09:54 Dose: 60 mg Tiotropium [place] (Spiriva -) 1 puff IH DAILY [facility] Last Admin: 11/22/17 09:54 Dose: 1 cap - Objective Vital Signs: Vital Signs Temperature 98.3 F 11/22/17 09:52 Pulse Rate 75 11/22/17 09:52 Respiratory Rate 20 11/22/17 09:52 Blood Pressure 143/74 11/22/17 09:52 O2 Sat by Pulse Oximetry (%) 96 11/21/17 21:00 Constitutional: Yes: Calm, Obese Eyes: Yes: WNL HENT: Yes: WNL Neck: Yes: WNL Cardiovascular: Yes: Regular Rate and Rhythm, S1, S2 Respiratory: Yes: Wheezes (few wheezes) Gastrointestinal: Yes: Normal Bowel Sounds, Soft Extremities: Yes: WNL Edema: No Labs: CBC, BMP Assessment/Plan Problem List - Problems (1) Asthma exacerbation Code(s): J45.901 - UNSPECIFIED ASTHMA WITH (ACUTE) EXACERBATION Qualifiers: Asthma severity: unspecified severity Asthma persistence: unspecified Qualified Code(s): J45.901 - Unspecified asthma with (acute) exacerbation (2) Acute bronchitis Code(s): J20.9 - ACUTE BRONCHITIS, UNSPECIFIED (3) HIV (human immunodeficiency virus infection) Code(s): Z21 - ASYMPTOMATIC HUMAN IMMUNODEFICIENCY VIRUS INFECTION STATUS (4) Obesity Code(s): E66.9 - OBESITY, UNSPECIFIED Qualifiers: Obesity type: unspecified obesity type Obesity classification: adult class 3 (BMI >= 40) Serious obesity comorbidity presence: unspecified whether serious comorbidity present Body mass index: BMI 60.0-69.9 Qualified Code(s) : E66.9 - Obesity, unspecified; Z68.44 - Body mass index (BMI) 60.0-69.9, adult (5) Sleep apnea, obstructive Code(s): G47.33 - OBSTRUCTIVE SLEEP APNEA (ADULT) (PEDIATRIC) Assessment/Plan Acute Asthma Exacerbation improving Acute Bronchitis HIV DM Morbid Obesity Obstructive Sleep Apnea - mucomyst with albuterol nebs - spiriva - singulair - inhaled bronchodilators - prednisone - monitor peak flow - BiPAP at night - outpt PFTs, allergy testing, IgE level, RAST when off steroids - DVT prophylaxis DR GREENWOOD
--- NOTE | 2017-11-22 16:29 | PN ---
Teaching Attending Note Name of Resident: Luz Wagoner ATTENDING PHYSICIAN STATEMENT I saw and evaluated the patient. I reviewed the resident's note and discussed the case with the resident. I agree with the resident's findings and plan as documented. SUBJECTIVE:c/o urinary frequency and urgency. states breathing has been stable. some pleuritic CP> denies fever, chills, N/V/C/D OBJECTIVE: Last Vital Signs Temp Pulse Resp BP Pulse Ox 98.4 F 84 18 120/64 96 11/22/17 14:17 11/22/17 14:17 11/22/17 14:17 11/22/17 14:17 11/22/17 09:00 General NAD CV S1 S2 RRR no murmur/rub/gallop +chest wall tenderness lungs CTA B/L poor inspiratory effort Extremities trace pitting edema ASSESSMENT AND PLAN: 47yo F with PMH morbid obesity, asthma, HIV and anemia currently on treatment for H. pylori presented to the ER with wheezing 1. Acute asthma exacerbation- slowly improving. switch to pred 60mg po daily. will need slow taper. would monitor on oral steroids for 1 day due to anxiety of leaving on steroids and not being able to breathe. informed her that she will likely be discharged tomorrow on slow steroid taper. cont inhalers. will need outpatient follow up [facility] for further testing. 2Urinary frequency- check UA to r/o UTI 3. Oral candidasis- on fluconazole day 6. will complete 7 day course 4. Microcytic anemia- no signs of bleeding,. Hgb stable. 5. Pre-diabetic- A1c 6.6. diabetic teaching, diabetic diet. educated on risks assoc with uncontrolled sugars. will need repeat A1c in 3 months and evaluate if would benefit from medication 6. Hpylori- completed triple therapy here. will cont protonix while on steroids. 7. HIV- on HARRT 8. morbid obesity- BMI 62. not interested in bariatric surgery 9. DVT ppx- hep sq 10. d/c planning for tomorrow. pt verbalized understanding of plan
[2017-11-22] MEDS: ALBUTEROL SO4 0.5 % INH SOLN 2.5 MG/0.5 ML VIAL.NEB. NEB PRN (17:45)
[2017-11-22] MEDS ORDERED: INSULIN (NOVOLOG) ASPART 100 UNITS/ML 10ML VIAL ONE (21:22)
[2017-11-22] MEDS: MONTELUKAST NA 10 MG TABLET PO SCH (22:00)
[2017-11-22] MEDS: INSULIN (LEVEMIR) 100 UNITS/ML UNITS SQ SCH (22:01)
[2017-11-23] MEDS: HEPARIN NA (PORCINE) 5,000 UNITS/ML 1ML VIAL SQ SCH ×2 (05:40→13:58)
[2017-11-23] MEDS: INSULIN SLIDING SCALE (NOVOLOG) 1 VIAL SQ SCH ×3 (06:04→16:40)
[2017-11-23] MEDS: ALBUTEROL SO4 0.5 % INH SOLN 2.5 MG/0.5 ML VIAL.NEB. NEB PRN ×3 (06:10→11:52)
--- NOTE | 2017-11-23 06:54 | DS ---
Physical Exam: SUBJECTIVE: Patient seen and examined this morning sitting upright in her chair. Patient says she did not sleep and was unable to use her bipap overnight. Continues to complain of chest burning that is worse with inhalation. Continues to use incentive spirometry. Urinary urgency has resolved. Patient able to ambulate to the solarium without difficulty. OBJECTIVE: Vital Signs Period Temp Pulse Resp BP Sys/So Pulse Ox Last 24 Hr 98.3 F-98.4 F 66-84 18-20 120-143/64-74 96-96 PHYSICAL EXAM GENERAL: The patient is awake, alert, and fully oriented, in no acute distress. LUNGS: Breath sounds equal, Wheezing improved HEART: Regular rate and rhythm, S1, S2 without murmur, rub or gallop. ABDOMEN: Obese, Soft, nontender, nondistended, normoactive bowel sounds EXTREMITIES: 2+ Pitting Edema LABS Laboratory Results - last 24 hr 11/22/17 11/22/17 11/22/17 06:33 10:05 11:51 POC Glucometer 170 230 Urine Color Straw Urine Appearance Clear Urine pH 7.0 Ur Specific [place] 1.009 Urine Protein Negative Urine Glucose (UA) 1+ H Urine Ketones Negative Urine Blood Negative Urine Nitrite Negative Urine Bilirubin Negative Urine Urobilinogen Negative Ur Leukocyte Esterase Negative 11/22/17 11/22/17 11/23/17 16:48 21:57 05:36 POC Glucometer 247 193 136 Urine Color Urine Appearance Urine pH Ur Specific [place] Urine Protein Urine Glucose (UA) Urine Ketones Urine Blood Urine Nitrite Urine Bilirubin Urine Urobilinogen Ur Leukocyte Esterase Microbiology 11/14/17 06:45 Sputum - Expectorated Gram Stain - Final 11/14/17 06:45 Sputum - Expectorated Sputum Culture - Final NORMAL RESPIRATORY DEEP 11/13/17 18:20 Urine For Antigen Detection Legionella Antigen - Final 11/13/17 18:20 Urine For Antigen Detection Streptococcus pneumoniae Antigen (M - Final IMAGING: - CXR (11/10): Excessive soft tissues. No acute pathology. No change of an adverse nature since 07/26/2016 - Chest CT (11/13): Limited study with no evidence of acute pathology within the chest. - DUPLEX (11/13): No evidence of deep venous thrombosis. - ECHO: Technically limited, LVEF 55-60% HOSPITAL COURSE: Date of Admission:11/10/17 Date of Discharge: 11/23/17 Prehospital course as per Dr. Heather Jolly Patient is a 47y/o F with PMHx of recurrent asthma exacerbations and hospitalizations, (never intubated), DM, HIV (on genvoya), anemia and chronic epigastric pain, presenting to ER with worsening SOB at rest for past 2 days. Pt uses daily symbicort and used her nebulizer up to 8 times today with no relief. Noted greenish non bloody sputum about 2 days ago, with no fever. Last exacerbation was about a year ago. Pt reports recurrent exacerbations, with no known precipitators. Pt notes leg swelling and orthopnea. Pt denies dysuria, chest pain or change in bowel habit. Says she has been compliant on her HAART, last CD count about a year ago was in the 900s and she follows Dr Vu. ER course was notable for decadron, duonebs, oxygen- NC_2L, azithro/ceftriaxone, CXR- no acute pathol (no formal read), EKG- Sinus tachy- Vent-102,NSTE/NSTD, QTC-497 Hospital course Patient was admitted for Acute asthma exacerbation. Pulmonology and Infectious disease were consulted. Patient continued to use her Bipap over night during her stay. Patient improved on IV Solumederol and was transitioned to PO Prednisone. She continued her HAART treatment throughout her admission. She completed a 5 day course of azithromycin and ceftriaxone. She also completed a 7 day course of Fluconazole for oral thrush. Patient completed her triple therapy for H Pylori during her hospital stay. Levemir was used to control her elvated blood glucose and she was discharged on Metformin to manage her blood sugars while on steroids. She will need outpatient PFTs and a follow up A1c in 3 months. Minutes to complete discharge: 55 Discharge Summary Reason For Visit: ASTHMA PNEUMONIA Current Active Problems Acute bronchitis (Acute) Condition: Improved - Instructions Diet, Activity, Other Instructions: You were admitted for an exacerbation of your asthma. You are being discharged on a Steroid. Please take the steroid as follows 60mg daily for 2 days (11/24, 11/25) 50mg daily for 2 days (11/26, 11/27) 40mg daily for 2 days (11/28, 11/29) 35mg daily for 2 days (11/30, 12/01) 30mg daily for 2 days (12/02, 12/03) 25mg daily for 2 days (12/04, 12/05) 20mg daily for 2 days (12/06, 12/07) Continue to take protonix (acid suppressant) until you complete your steroids, than you can stop this medication. Continue your inhalers. You will need to follow up with pulmonology (Dr. Martin) prior to completing your steroids. You will need to have your peak flow measurement done as an outpatient. You are being discharged on Metformin 1000mg, Please take this twice a day. Check your blood glucose before meals and at night at bedtime. You will be discharged with a glucometer, once you complete your steroids and if it reads consistently < 150, please stop the metformin and follow up with your primary doctor. Please check your A1c in 3 months. Follow up with your primary doctor in 1 week. Follow up with infectious disease (Dr. Jones) in 1 week regarding your T-cell count. Referrals: Mick Martin MD [Staff Physician] - Carla Jiménez MD [Primary Care Provider] - Disposition: HOME - Home Medications Comprehensive Discharge Medication List: Ambulatory Orders Albuterol 0.083% Nebulizer Rach [Ventolin 0.083% Nebulizer Soln -] 1 amp NEB Q4H PRN #3 amp 08/07/16 Elviteg/Cob/Emtri/Tenof Alafen [Genvoya (Non-Formulary)] 1 tab PO DAILY Budesonide/Formeterol Fumarate [SYMBICORT 160/4.5mcg -] 2 inh PO BID 02/20/17 Amoxicillin 500mg Capsule - 1,000 mg PO BID 11/10/17 Clarithromycin 500 mg PO BID 11/10/17 Pantoprazole Sodium 40 mg PO DAILY 11/10/17 This patient is new to me today: No Emergency Visit: Yes ED Registration Date: 11/10/17 Care time: The patient presented to the Emergency Department on the above date and was hospitalized for further evaluation of their emergent condition. Critical Care patient: No - Discharge Referral Referred to [facility] No
[2017-11-23] MEDS: ACETYLCYSTEINE 20% 200MG/ML 4 ML VIAL *FOR ORAL / INH USE ONLY NEB SCH ×3 (07:58→16:15)
[2017-11-23] MEDS ORDERED: PT OWN MED DRAWER 7, Y5N ONE (09:39)
[2017-11-23] MEDS: predniSONE 20 MG TABLET (UD) PO SCH (09:41)
[2017-11-23] MEDS: FLUCONAZOLE 100 MG TABLET (UD) PO SCH (09:42)
[2017-11-23] MEDS: TIOTROPIUM BROMIDE 18 MCG CAPSULES IH SCH (09:42)
[2017-11-23] MEDS: NYSTATIN POWDER 100,000 UNITS/GM - 15 GM TOPICAL POWDER TP SCH (09:43)
[2017-11-23] MEDS: BUDESONIDE/FORMETEROL FUMARATE 160/4.5 mcg INHALER IH SCH (09:43)
[2017-11-23] MEDS: PATIENT'S OWN MEDICATION (NON-FORMULARY) (Elviteg/Cob/Emtri/Tenof Alafen [Genvoya (Non-For PO SCH (09:45)
[2017-11-23] MEDS: PANTOPRAZOLE 40 MG TABLET (FP) PO SCH (09:45)
--- NOTE | 2017-11-23 12:43 | PN ---
Progress Note, Physician History of Present Illness: pulmonary alert,feeling better, dyspnea improved - Current Medication List Current Medications: Active Medications Acetaminophen (Tylenol -) 650 mg PO Q4H PRN PRN Reason: PAIN Last Admin: 11/21/17 22:04 Dose: 650 mg Acetylcysteine (Mucomyst 20 Oral / Inh Use Only*) 200 mg NEB RQID [facility] Last Admin: 11/23/17 11:52 Dose: 200 mg Albuterol Sulfate (Ventolin 0.5% -) 1 amp NEB Q4H PRN PRN Reason: SHORT OF BREATH/WHEEZING Last Admin: 11/23/17 11:52 Dose: 1 amp Budesonide/Formoterol Fumarate (Symbicort 160/4.5mcg -) 2 puff IH BID [facility] Last Admin: 11/23/17 09:43 Dose: 2 puff Fluconazole (Diflucan -) 100 mg PO DAILY [facility] Last Admin: 11/23/17 09:42 Dose: 100 mg Heparin Sodium (Porcine) (Heparin -) 5,000 unit SQ TID [facility] Last Admin: 11/23/17 05:40 Dose: 5,000 unit Insulin Aspart (Novolog Vial Sliding Scale -) 1 vial SQ [facility]; Protocol Last Admin: 11/23/17 11:12 Dose: Not Given Insulin Detemir (Levemir Vial) 15 units SQ HS [facility] Last Admin: 11/22/17 22:01 Dose: 15 units Montelukast Sodium (Singulair -) 10 mg PO HS [facility] Last Admin: 11/22/17 22:00 Dose: 10 mg Non-Formulary Medication (Elviteg/Cob/Emtri/Tenof Alafen [Genvoya (Non-Formulary )]) 1 tab PO DAILY [facility] Last Admin: 11/23/17 09:45 Dose: 1 tab Nystatin (Nystop Powder -) 1 applic TP DAILY [facility] Last Admin: 11/23/17 09:43 Dose: 1 applic Pantoprazole Sodium (Protonix -) 40 mg PO DAILY [facility] Last Admin: 11/23/17 09:45 Dose: 40 mg Prednisone (Deltasone -) 60 mg PO DAILY [facility] Last Admin: 11/23/17 09:41 Dose: 60 mg Tiotropium [place] (Spiriva -) 1 puff IH DAILY [facility] Last Admin: 11/23/17 09:42 Dose: 1 cap - Objective Vital Signs: Vital Signs Temperature 98.2 F 11/23/17 08:03 Pulse Rate 82 11/23/17 08:03 Respiratory Rate 22 11/23/17 08:03 Blood Pressure 138/80 11/23/17 08:03 O2 Sat by Pulse Oximetry (%) 96 11/22/17 21:00 Constitutional: Yes: Calm, Obese Eyes: Yes: WNL HENT: Yes: WNL Neck: Yes: WNL Cardiovascular: Yes: Regular Rate and Rhythm, S1, S2 Respiratory: Yes: CTA Bilaterally Gastrointestinal: Yes: Normal Bowel Sounds, Soft Extremities: Yes: WNL Edema: No Labs: C Assessment/Plan Problem List - Problems (1) Asthma exacerbation Code(s): J45.901 - UNSPECIFIED ASTHMA WITH (ACUTE) EXACERBATION Qualifiers: Asthma severity: unspecified severity Asthma persistence: unspecified Qualified Code(s): J45.901 - Unspecified asthma with (acute) exacerbation (2) Acute bronchitis Code(s): J20.9 - ACUTE BRONCHITIS, UNSPECIFIED (3) HIV (human immunodeficiency virus infection) Code(s): Z21 - ASYMPTOMATIC HUMAN IMMUNODEFICIENCY VIRUS INFECTION STATUS (4) Obesity Code(s): E66.9 - OBESITY, UNSPECIFIED Qualifiers: Obesity type: unspecified obesity type Obesity classification: adult class 3 (BMI >= 40) Serious obesity comorbidity presence: unspecified whether serious comorbidity present Body mass index: BMI 60.0-69.9 Qualified Code(s) : E66.9 - Obesity, unspecified; Z68.44 - Body mass index (BMI) 60.0-69.9, adult (5) Sleep apnea, obstructive Code(s): G47.33 - OBSTRUCTIVE SLEEP APNEA (ADULT) (PEDIATRIC) Assessment/Plan Acute Asthma Exacerbation improved Acute Bronchitis HIV DM Morbid Obesity Obstructive Sleep Apnea - - spiriva - singulair - inhaled bronchodilators - prednisone 60daily with slow taper - monitor peak flow - BiPAP at night - outpt PFTs, allergy testing, IgE level, RAST when off steroids - DVT prophylaxis DR GREENWOOD
--- NOTE | 2017-11-23 14:05 | PN ---
Teaching Attending Note Name of Resident: Luz Wagoner ATTENDING PHYSICIAN STATEMENT I saw and evaluated the patient. I reviewed the resident's note and discussed the case with the resident. I agree with the resident's findings and plan as documented. SUBJECTIVE:breathing the same. able to ambulate to the solarium and back without difficutly. denies Cp, fever, chills, N/V/C/D OBJECTIVE: Last Vital Signs Temp Pulse Resp BP Pulse Ox 98 F 75 19 130/69 99 11/23/17 13:11 11/23/17 13:11 11/23/17 13:11 11/23/17 13:11 11/23/17 09:00 General NAD lungs CTA B/L poor inspiratory effort ASSESSMENT AND PLAN: 47yo F with PMH morbid obesity, asthma, HIV and anemia currently on treatment for H. pylori presented to the ER with wheezing 1. Acute asthma exacerbation- slowly improving. on pred 60mg. will need a slow taper decreased by 10mg every 2 days. cont inhalers. will need PFT and outpatient testing once completed. Pulm oupatient follow up. 2. Urinary frequency- UA negative for infection. some glucosuria which may contribute to urinary frequency 3. Oral candidasis- on fluconazole day 7. today is last dose 4. Microcytic anemia- no signs of bleeding,. Hgb stable. 5. Pre-diabetic- A1c 6.6. sugars have been high while on steroids. have been receiving high doses of insulin. pt is unable to afford insulin. will place on metformin. will give glucometer. and instructed patient to check sugars. once off steroids and consistently having sugars <150 then can stop the metformin. will need repeat A1c in 3 months. hopefully dual benefit of metformin and weight loss. verbalized understanding of plan and chekcing sugars. 6. Hpylori- completed triple therapy here. will cont protonix while on steroids. 7. HIV- on HARRT 8. morbid obesity- BMI 62. not interested in bariatric surgery 9. DVT ppx- hep sq 10. d/c home. since patient is unable to afford her medications until 11/28/17 pharmacy here will give medications to last until that time. extensively went over medication and discharge planning. verbalized understnading and agreement
[2017-11-23 18:17] VITALS: BP 132/64; PULSE 74; TEMP 98
== END 2017-11-23 19:56 | disposition home or self-care (01) | DRG 202 ==
LOC: JER 01:00 → J4W 02:31 → J5S 11-11 19:13
PROVIDERS: ADMIT Internal Medicine; ATTEND Internal Medicine
PROC: 3E0F76Z Introduction of Nutritional Substance into Respiratory Tract, Via Natural or Artificial Opening (ICD-10-PCS; principal; 2017-11-10)
PROC: 5A09457 Assistance with Respiratory Ventilation, 24-96 Consecutive Hours, Continuous Positive Airway Pressure (ICD-10-PCS; 2017-11-16)
DX: J45.901 Unspecified asthma with (acute) exacerbation (principal); J18.9 Pneumonia, unspecified organism; Z68.44 Body mass index [BMI] 60.0-69.9, adult; B37.0 Candidal stomatitis; Z21 Asymptomatic human immunodeficiency virus [HIV] infection status; E66.01 Morbid (severe) obesity due to excess calories; D50.9 Iron deficiency anemia, unspecified; R73.03 Prediabetes; G47.33 Obstructive sleep apnea (adult) (pediatric); Z91.14 Patient's other noncompliance with medication regimen; K29.70 Gastritis, unspecified, without bleeding; B96.81 Helicobacter pylori [H. pylori] as the cause of diseases classified elsewhere; Z91.19 Patient's noncompliance with other medical treatment and regimen; D63.8 Anemia in other chronic diseases classified elsewhere; R35.0 Frequency of micturition; R39.15 Urgency of urination
CPT/HCPCS: 36415; 36600; 71045-TC-FY; 71250-TC; 80048; 80053; 81003; 82550; 82553; 82728; 82803; 82962; 83036; 83540; 83550; 83735; 83880; 84100; 84484; 85025; 85027; 86359; 86360; 87070; 87205; 87899; 93005; 93010; 93306-TC; 93970-TC; 94010; 94150; 94640; 94660; 94761; 99284-25; J1644; J7620

== ENCOUNTER 2018-01-30 14:36 | Observation (INO) | payer OTHER ==
--- NOTE | 2018-01-30 14:42 | PDOC ---
Rapid Medical Evaluation Time Seen by Provider: 01/30/18 14:37 Medical Evaluation: Allergies Allergy/AdvReac Type Severity Reaction Status Date / Time omeprazole [From Prilosec] Allergy Mild Hives Verified 11/10/17 01:06 omeprazole magnesium Allergy Mild Hives Verified 11/10/17 01:06 [From Prilosec] 01/30/18 14:38 I have performed a brief in-person evaluation of this patient. The patient presents with a chief complaint of: cough wheezing asthma exacerbation, took a zpack finished last week. no history of intubations, multiple hospitalizations. Pertinent physical exam findings:SOB wheezing, speaking full sentences with mild distress I have ordered the following: duoneb, CXR (urine preg first) The patient will proceed to the ED for further evaluation. 01/30/18 14:41
[2018-01-30] MEDS: ALBUTEROL SO4 2.5/IPRATROPIUM 0.5 INH SOL 3 ML VIAL.NEB. NEB SCH ×6 (14:51→18:15)
[2018-01-30] MEDS ORDERED: methylPREDNISolone 8 MG TABLET PO ONE (15:41)
--- NOTE | 2018-01-30 15:57 | PDOC ---
History of Present Illness - General Chief Complaint: Shortness of Breath Stated Complaint: ASTHMA Time Seen by Provider: 01/30/18 14:37 History Source: Patient - History of Present Illness Initial Comments: 01/30/18 16:54 47-year-old female with history of HIV, severe asthma with several admissions in the past including the ICU but never intubated, morbid obesity presents to the emergency department with acute asthma exacerbation for the past day, despite increasing frequency of home nebulizers. No measured fevers or chills. 01/30/18 16:55 Past History - Past Medical History Allergies/Adverse Reactions: Allergies Allergy/AdvReac Type Severity Reaction Status Date / Time omeprazole [From Prilosec] Allergy Mild Hives Verified 11/10/17 01:06 omeprazole magnesium Allergy Mild Hives Verified 11/10/17 01:06 [From Prilosec] Home Medications: Ambulatory Orders Albuterol 0.083% Nebulizer Rach [Ventolin 0.083% Nebulizer Soln -] 1 amp NEB Q4H PRN #3 amp 08/07/16 Elviteg/Cob/Emtri/Tenof Alafen [Genvoya (Non-Formulary)] 1 tab PO DAILY Budesonide/Formeterol Fumarate [SYMBICORT 160/4.5mcg -] 2 inh PO BID 02/20/17 Acetylcysteine Po/INH 20% [Mucomyst 20 Oral / INH Use Only*] 200 mg NEB RQID #1 vial 11/23/17 Metformin HCl [Glucophage] 1,000 mg PO BID #14 tablet 11/23/17 Metformin HCl [Glucophage] 1,000 mg PO BID #60 tablet 11/23/17 Miscellaneous Medical Supply [Glucometer Device] 1 each SQ ASDIR #1 kit Miscellaneous Medical Supply [Glucometer Test Strips #100] 1 each SQ ASDIR #1 box 11/23/17 Miscellaneous Medical Supply [Outpatient Order] 1 each MC ASDIR #100 misc Montelukast Na [Singulair -] 10 mg PO HS #1 tablet 11/23/17 Pantoprazole Sodium [Protonix] 40 mg PO DAILY #14 tablet. 11/23/17 Tiotropium [place] [Spiriva] 1 puff IH DAILY 30 Days #1 cap 11/23/17 predniSONE [Deltasone -] 5 mg PO DAILY #20 tablet 11/23/17 predniSONE [Deltasone -] See Taper PO DAILY #60 tablet 11/23/17 Anemia: Yes Asthma: Yes Cancer: No Cardiac Disorders: No CVA: No COPD: No CHF: No DVT: No Dementia: No Diabetes: No GI Disorders: No Disorders: No HTN: No Hypercholesterolemia: No Liver Disease: No Seizures: No Thyroid Disease: No Other medical history: obesity, sleep apnea - Surgical History Abdominal Surgery: Yes Appendectomy: No Cardiac Surgery: No Cholecystectomy: No Lung Surgery: No Neurologic Surgery: No Orthopedic Surgery: No - Family Disease History Family Disease History: Diabetes: Father, Heart Disease: Father - Reproductive History (#): 6 Para: 5 Cervical CA: No Dysfunctional Uterine Bleeding: Yes Ectopic : No Endometrial CA: No Polycystic Ovaries: No Therapeutic (s) & number: No Tubal Ligation: No Spontaneous : 1 - Immunization History Immunization Up to Date: Yes - Suicide/Smoking/Psychosocial Hx Smoking History: Never smoked Have you smoked in the past 12 months: No Information on smoking cessation initiated: No Hx Alcohol Use: No Drug/Substance Use Hx: No Substance Use Type: None Hx Substance Use Treatment: No Respiratory Specific PMHX - Complaint Specific PMHX Bronchitis: Yes Review of Systems - Review of Systems Able to Perform ROS?: Yes Is the patient limited [place] proficient: No Constitutional: No: Symptoms Reported HEENTM: No: Symptoms Reported Respiratory: Yes: See HPI Cardiac (ROS): No: Symptoms Reported ABD/GI: No: Symptoms Reported : No: Symptoms Reported Neurological: No: Symptoms reported All Other Systems: Reviewed and Negative *Physical Exam - Vital Signs Last Vital Signs Temp Pulse Resp BP Pulse Ox 97.7 F 89 19 113/51 L 97 01/30/18 14:38 01/30/18 14:38 01/30/18 14:38 01/30/18 14:38 01/30/18 14:38 - Physical Exam General Appearance: Yes: Nourished, Appropriately Dressed, Obese HEENT: positive: EOMI, NICOLE, Normal ENT Inspection Respiratory/Chest: positive: Lungs Clear, Normal Breath Sounds. negative: Chest Tender, Respiratory Distress Cardiovascular: positive: Regular Rhythm, Regular Rate, S1, S2 Gastrointestinal/Abdominal: positive: Normal Bowel Sounds, Flat, Soft. negative : Tender Musculoskeletal: positive: Normal Inspection. negative: CVA Tenderness Extremity: positive: Normal Capillary Refill, Normal Inspection, Normal Range of Motion Integumentary: positive: Normal Color, Dry, Warm Neurologic: positive: Fully Oriented, Alert, Normal Mood/Affect ED Treatment Course - ADDITIONAL ORDERS Additional order review: Laboratory Results 01/30/18 14:48 Urine HCG, Qual Negative - RADIOLOGY Radiology Studies Ordered: Category Date Time Status CHEST PA & LAT [RAD] Stat Radiology 01/30/18 15:26 Ordered - Medications Given in the ED: ED Medications Discontinued Medications Generic Name Dose Route Start Last Admin Trade Name Freq PRN Reason Stop Dose Admin Albuterol/Ipratropium 1 amp 01/30/18 14:45 01/30/18 15:23 Duoneb - NEB 01/30/18 15:31 1 amp Q15M KAREN Administration Medical Decision Making - Medical Decision Making 01/30/18 17:01 Adcute asthma exacerbatrion - 3x duonebs - Steroids. - Basic labs - Patient still wheezy, may have to admit.
[2018-01-30] MEDS ORDERED: predniSONE 20 MG TABLET (UD) PO ONE (15:59)
[2018-01-30] MEDS ORDERED: predniSONE 20 MG TABLET (UD) ONE (16:40)
[2018-01-30] MEDS ORDERED: ALBUTEROL SO4 2.5/IPRATROPIUM 0.5 INH SOL 3 ML VIAL.NEB. NEB ONE ×2 (16:40→18:14)
--- NOTE | 2018-01-30 16:59 | PDOC ---
Attending Attestation - Resident Resident Name: Nick Ballesteros - ED Attending Attestation I have performed the following: I have examined & evaluated the patient, The case was reviewed & discussed with the resident, I agree w/resident's findings & plan, Exceptions are as noted - HPI HPI: 01/30/18 16:57 47 F with h/o HIV (CD4 800s, VL UD), asthma, morbid obesity, DM, presenting to ED with SOB x 2 weeks. Pt states that she had fevers and cough initially, which have resolved. However, she has had persistent wheezing and SOB for the past week. Pt completed a Z-pack prescribed by her primary last week. She has been using her nebulizer at home with no relief. Denies any recent fevers. Denies CP. Denies leg swelling. - Physicial Exam PE: 01/30/18 16:58 GENERAL: Awake, alert, and fully oriented, in no acute distress. HEAD: No signs of trauma EYES: PERRLA, EOMI, sclera anicteric, conjunctiva clear ENT: Auricles normal inspection, hearing grossly normal, nares patent, oropharynx clear without exudates. Moist mucosa NECK: Nontender, no stepoffs, Normal ROM, supple, no lymphadenopathy, JVD, or masses LUNGS: + diffuse bilateral inspiratory + expiratory wheezes HEART: Regular rate and rhythm, normal S1 and S2, no murmurs, rubs or gallops ABDOMEN: Soft, nontender, normoactive bowel sounds. No guarding, no rebound. No masses EXTREMITIES: Normal range of motion, no edema. No clubbing or cyanosis. No cords, erythema, or tenderness NEUROLOGICAL: Cranial nerves II through XII intact. 5/5 strength and sensation in all extremities, Normal speech, normal gait, normal cerebellar function SKIN: Warm, Dry, normal turgor, no rashes or lesions noted. - Medical Decision Making 01/30/18 16:59 47 F with asthma flare. Will r/o PNA with CXR. - Labs - CXR - Duonebs - Prednisone - Mg
[2018-01-30] MEDS ORDERED: MAGNESIUM SULF 50% (8.12 MEQ/2 ML-1 GM VIAL) IVPB ONE (17:00)
[2018-01-30] MEDS ORDERED: MAGNESIUM 1GM/D5W - 2 GM/200 ML IVPB IVPB ONE (18:14)
[2018-01-30 19:13] LABS: BASO % 0.9 % (0-2.0); EOS % 0.4 % (0-4.5); HEMATOCRIT 35.6 % (32.4-45.2); HEMOGLOBIN 10.8 GM/dL (10.7-15.3); LYMPH % 15.5 % (8-40); MCH 21.6 pg (25.7-33.7); MCHC 30.3 g/dl (32.0-36.0); MEAN CELL VOLUME 71.3 fl (80-96); MEAN PLT VOLUME 7.7 fl (7.5-11.1); MONO % 3.8 % (3.8-10.2); NEUT % 79.4 % (42.8-82.8); PLATELET COUNT 359 K/MM3 (134-434); RBC 4.99 M/mm3 (3.60-5.2); RDW 22.2 % (11.6-15.6); WHITE BLOOD COUNT 14.2 K/mm3 (4.0-10.0)
--- NOTE | 2018-01-30 19:17 | PDOC ---
*Physical Exam - Vital Signs Last Vital Signs Temp Pulse Resp BP Pulse Ox 97.7 F 89 19 113/51 L 97 01/30/18 14:38 01/30/18 14:38 01/30/18 14:38 01/30/18 14:38 01/30/18 14:38 - Physical Exam General Appearance: Yes: Appropriately Dressed. No: Apparent Distress HEENT: positive: Normal Voice Respiratory/Chest: positive: Accessory Muscle Use, Wheezing (Diffuse). negative : Respiratory Distress, Rales Cardiovascular: positive: S1, S2, Tachycardia (Mild). negative: Murmur ED Treatment Course - LABORATORY CBC & Chemistry Diagram: 01/31/18 06:30 01/31/18 06:30 - ADDITIONAL ORDERS Additional order review: Laboratory Results 01/30/18 14:48 Urine HCG, Qual Negative 01/30/18 18:00 RBC 4.99 MCV 71.3 L MCHC 30.3 L RDW 22.2 H MPV 7.7 Neutrophils % 79.4 Lymphocytes % 15.5 D Monocytes % 3.8 Eosinophils % 0.4 D Basophils % 0.9 D - Medications Given in the ED: ED Medications Discontinued Medications Generic Name Dose Route Start Last Admin Trade Name Freq PRN Reason Stop Dose Admin Albuterol/Ipratropium 1 amp 01/30/18 14:45 01/30/18 16:44 Duoneb - NEB 01/30/18 15:31 1 amp Q15M KAREN Administration Albuterol/Ipratropium 1 amp 01/30/18 17:15 01/30/18 18:15 Duoneb - NEB 01/30/18 18:01 1 amp Q15M KAREN Administration Magnesium Sulfate 2 gm 01/30/18 17:00 01/30/18 18:15 Magnesium Sulfate IVPB 01/30/18 17:01 2 gm ONCE ONE Administration Methylprednisolone 32 mg 01/30/18 15:41 01/30/18 16:44 Medrol - PO 01/30/18 15:42 Not Given ONCE ONE Prednisone 60 mg 01/30/18 15:59 01/30/18 16:44 Deltasone - PO 01/30/18 16:00 60 mg ONCE ONE Administration Medical Decision Making - Medical Decision Making 01/30/18 19:14 Received sign out from resident Dr. Ballesteros. In short, pt is a 47 y /o female complaining of shortness of breath likely secondary to asthma exacerbation. S/p Z-pack last week prescribed by PCP. Pt has required multiple ICU admissions in past but never intubated for asthma exacerbations. Has received 2x duonebs, prednisone, and magnesium. Labs have not resulted. Dispo not determined at this time. Will reassess. Pt is HIV positive (CD4 800s, VL UD). 01/30/18 21:01 Pt reports her breathing has only mildly improved since arrival; "coughing has decreased but tightness has increased." Diffuse wheezing on auscultation. Will order another albuterol treatment. 01/30/18 21:24 PCP is Mary Grace Licona. Microblog sent to [facility] for admission for acute asthma exacerbation. 01/30/18 22:29 Telephone consult with resident Dr. Gonzalez. Agrees to admit to med /surg on observational status for Dr. Valenzuela. *DC/Admit/Observation/Transfer Diagnosis at time of Disposition: Asthma exacerbation Qualifiers: Asthma severity: moderate Asthma persistence: persistent Qualified Code(s): J45.41 - Moderate persistent asthma with (acute) exacerbation - Discharge Dispostion Condition at time of disposition: Stable Decision to Admit order: Yes - Referrals - Patient Instructions - Post Discharge Activity
[2018-01-30 20:50] LABS: ALBUMIN 3.4 g/dl (3.4-5.0); ALK PHOS 61 U/L (45-117); ANION GAP 12 MMOL/L (8-16); BILIRUBIN,TOTAL 0.2 mg/dL (0.2-1); BLOOD UREA NITROGEN 8 mg/dL (7-18); CALCIUM 8.5 mg/dL (8.5-10.1); CHLORIDE 107 mmol/L (98-107); CO2 20 mmol/L (21-32); CREATININE 0.8 mg/dL (0.55-1.3); GLUCOSE,RANDOM 129 mg/dL (74-106); POTASSIUM 4.2 mmol/L (3.5-5.1); SGOT/AST 16 U/L (15-37); SGPT/ALT 19 U/L (13-61); SODIUM 139 mmol/L (136-145); TOT PROT 7.2 g/dl (6.4-8.2)
[2018-01-30] MEDS ORDERED: ALBUTEROL SO4 0.5 % INH SOLN 2.5 MG/0.5 ML VIAL.NEB. NEB ONE (21:03)
[2018-01-30] MEDS ORDERED: ALBUTEROL SO4 0.083% IH SOL 2.5 MG/3 ML VIAL.NEB. NEB ONE (22:36)
--- NOTE | 2018-01-30 22:54 | PN ---
Teaching Attending Note Name of Resident: Callum Mckee ATTENDING PHYSICIAN STATEMENT I saw and evaluated the patient. I reviewed the resident's note and discussed the case with the resident. I agree with the resident's findings and plan as documented. SUBJECTIVE: 47 y/o F presented c/o SOB and wheezing despite taking her asthma medications. Patient recently exposed to grass being cut. OBJECTIVE: GEN: A&O in acute distress, audibly wheezing HEENT: PERRLA, EOMI, MMM LUNGS: diffuse wheezing CVS: RRR, S1, S2 Abd: Soft, NT, ND, obese, BS+ CBCD WBC 14.2 K/mm3 (4.0-10.0) H 01/30/18 18:00 RBC 4.99 M/mm3 (3.60-5.2) 01/30/18 18:00 Hgb 10.8 GM/dL (10.7-15.3) 01/30/18 18:00 Hct 35.6 % (32.4-45.2) 01/30/18 18:00 MCV 71.3 fl (80-96) L 01/30/18 18:00 MCHC 30.3 g/dl (32.0-36.0) L 01/30/18 18:00 RDW 22.2 % (11.6-15.6) H 01/30/18 18:00 Plt Count 359 K/MM3 (134-434) 01/30/18 18:00 MPV 7.7 fl (7.5-11.1) 01/30/18 18:00 CMP Sodium 139 mmol/L (136-145) 01/30/18 18:00 Potassium 4.2 mmol/L (3.5-5.1) 01/30/18 18:00 Chloride 107 mmol/L (98-107) 01/30/18 18:00 Carbon Dioxide 20 mmol/L (21-32) L 01/30/18 18:00 Anion Gap 12 MMOL/L (8-16) 01/30/18 18:00 BUN 8 mg/dL (7-18) 01/30/18 18:00 Creatinine 0.8 mg/dL (0.55-1.3) 01/30/18 18:00 Creat Clearance w eGFR > 60 (>60) 01/30/18 18:00 Random Glucose 129 mg/dL (74-106) H 01/30/18 18:00 Calcium 8.5 mg/dL (8.5-10.1) 01/30/18 18:00 Total Bilirubin 0.2 mg/dL (0.2-1) 01/30/18 18:00 AST 16 U/L (15-37) 01/30/18 18:00 ALT 19 U/L (13-61) 01/30/18 18:00 Alkaline Phosphatase 61 U/L (45-117) 01/30/18 18:00 Total Protein 7.2 g/dl (6.4-8.2) 01/30/18 18:00 Albumin 3.4 g/dl (3.4-5.0) 01/30/18 18:00 ASSESSMENT AND PLAN: Asthma exacerbation Nebs solumedrol Continue home medications Leucocytosis- possibly secondary to steroid use vs infection.
--- NOTE | 2018-01-30 23:38 | HP ---
CHIEF COMPLAINT: PCP: Dr Pierre HISTORY OF PRESENT ILLNESS: Pt is a 47 y/o f with a signififcant past medical history of asthma, HIV (last CD4 count 889 in May of this year, follows I.D regularly), PUMA, chronic iron deficiency anemia, DM, and HTN who presented to [facility] c/o shortness of breath and wheezing for 2 weeks duration. Pt states that her symptoms initially began on SundayJanuary 20. Pt endorses experiencing fever and chills during this time as well. Pt further describes a tickle sensation in her throat as well as a cough that is productive of green phlegm. Pt called her PMD and was prescribed Z-Pack for 5 days. Pt states she felt better after finishing the antibiotics until this past Sunday when her symptoms reoccurred. Endorses a home temperature of 101 as well as chills. States she has not followed up with her [employer] or [employer] since they do not accept her insurance. ER course was notable for: (1) 2X Duoneb, 60 mg prednisone PO (2) WBC 14.2 (3) Recent Travel: denies PAST MEDICAL HISTORY: Per HPI PAST SURGICAL HISTORY: Social History: Smoking: denies Alcohol: denies Drugs: denies Family History: Allergies omeprazole [From Prilosec] Allergy (Mild, Verified 11/10/17 01:06) Hives omeprazole magnesium [From Prilosec] Allergy (Mild, Verified 11/10/17 01:06) Hives HOME MEDICATIONS: Home Medications Medication Instructions Recorded Albuterol 0.083% Nebulizer Rach 1 amp NEB Q4H PRN #3 amp 08/07/16 [Ventolin 0.083% Nebulizer Soln -] Elviteg/Cob/Emtri/Tenof Alafen 1 tab PO DAILY 02/19/17 [Genvoya (Non-Formulary)] Budesonide/Formeterol Fumarate 2 inh PO BID 02/20/17 [SYMBICORT 160/4.5mcg -] Acetylcysteine Po/INH 20% 200 mg NEB RQID #1 vial 11/23/17 [Mucomyst 20 Oral / INH Use Only*] Metformin HCl [Glucophage] 1,000 mg PO BID #14 tablet 11/23/17 Metformin HCl [Glucophage] 1,000 mg PO BID #60 tablet 11/23/17 Miscellaneous Medical Supply 1 each SQ ASDIR #1 kit 11/23/17 [Glucometer Device] Miscellaneous Medical Supply 1 each SQ ASDIR #1 box 11/23/17 [Glucometer Test Strips #100] Miscellaneous Medical Supply 1 each ASDIR #100 misc 11/23/17 [Outpatient Order] Montelukast Na [Singulair -] 10 mg PO HS #1 tablet 11/23/17 Pantoprazole Sodium [Protonix] 40 mg PO DAILY #14 tablet. 11/23/17 Tiotropium [place] [Spiriva] 1 puff IH DAILY 30 Days #1 cap 11/23/17 predniSONE [Deltasone -] 5 mg PO DAILY #20 tablet 11/23/17 predniSONE [Deltasone -] See Taper PO DAILY #60 tablet 11/23/17 REVIEW OF SYSTEMS CONSTITUTIONAL: PRESENT: fever HEENT: Absent: rhinorrhea, nasal congestion, throat pain, throat swelling, difficulty swallowing, mouth swelling, ear pain, eye pain, visual changes CARDIOVASCULAR: Absent: chest pain, syncope, palpitations, irregular heart rate, lightheadedness , peripheral edema RESPIRATORY: PRESENT: cough, shortness of breath, dyspnea with exertion, orthopnea, wheezing, GASTROINTESTINAL: Absent: abdominal pain, abdominal distension, nausea, vomiting, diarrhea, constipation, melena, hematochezia GENITOURINARY: Absent: dysuria, frequency, urgency, hesitancy, hematuria, flank pain, genital pain MUSCULOSKELETAL: Absent: myalgia, arthralgia, joint swelling, back pain, neck pain SKIN: Absent: rash, itching, pallor HEMATOLOGIC/IMMUNOLOGIC: Absent: easy bleeding, easy bruising, lymphadenopathy, frequent infections ENDOCRINE: Absent: unexplained weight gain, unexplained weight loss, heat intolerance, cold intolerance NEUROLOGIC: PRESENT: paresthesias in b/l feet PSYCHIATRIC: Absent: anxiety, depression, suicidal or homicidal ideation, hallucinations. PHYSICAL EXAMINATION Vital Signs - 24 hr 01/30/18 01/30/18 01/30/18 14:38 19:19 21:06 Temperature 97.7 F 98.4 F Pulse Rate 89 Pulse Rate [ 87 112 H Right Apical] Respiratory 19 18 22 H Rate Blood Pressure 113/51 L Blood Pressure 131/72 [Left] O2 Sat by Pulse 97 100 99 Oximetry (%) GENERAL: AAOx3, AD HEAD: NC/AT EYES: PERRLA, EOMI, FUNDOSCOPY WNL EARS, NOSE, THROAT: MMM NECK: Supple LUNGS: DIFFUSE WHEEZING HEART: Tacycardia, Regular Rythm, No murmurs rubs or gallops ABDOMEN: Obese, ND NT No HSM MUSCULOSKELETAL:Full ROM throughout UPPER EXTREMITIES:No Onychomycosis, no cracks or open wounds on feet LOWER EXTREMITIES: 2+ pulses, warm, well-perfused. No calf tenderness. No peripheral edema. NEUROLOGICAL: Cn 2-12 INTACT PSYCHIATRIC: Cooperative. Good eye contact. Appropriate mood and affect. SKIN: mOIST, NO RASHES OR LESIONS APPRECIATED Laboratory Results - last 24 hr 01/30/18 01/30/18 01/30/18 14:48 18:00 18:00 WBC 14.2 H RBC 4.99 Hgb 10.8 Hct 35.6 MCV 71.3 L MCH 21.6 L MCHC 30.3 L RDW 22.2 H Plt Count 359 MPV 7.7 Absolute Neuts (auto) 11.3 H Neutrophils % 79.4 Lymphocytes % 15.5 D Monocytes % 3.8 Eosinophils % 0.4 D Basophils % 0.9 D Nucleated RBC % 0 Sodium 139 Potassium 4.2 Chloride 107 Carbon Dioxide 20 L Anion Gap 12 BUN 8 Creatinine 0.8 Creat Clearance w eGFR > 60 Random Glucose 129 H Calcium 8.5 Total Bilirubin 0.2 AST 16 ALT 19 Alkaline Phosphatase 61 Total Protein 7.2 Albumin 3.4 Urine HCG, Qual Negative ASSESSMENT/PLAN: Pt is a 47 y/o f with a signififcant past medical history of asthma, HIV (last CD4 count 889 in May of this year, follows I.D regularly), PUMA, chronic iron deficiency anemia, DM, and HTN who presented to [facility] c/o shortness of breath and wheezing for 2 weeks duration # Acute Asthma Exacerbation - Peak Flow Daily - Duoneb Q4H PRN -Prednisone 60 MG Daily -Continue home medications -Consider Pulmonology consult - WBC elevated 2/2 steroids/infection? - Trend WBC #DM -BGM ACHS -Insulin Sliding Scale -Resume home meds #HIV -Resume Genvoya -last known CD4 Count 889 in May 2017 -F/U ID # [id number] -Pt not using CPAP machine due to discomfort - Counseled pt on importance of machine use FEN No Fluids Monitor Electrolytes Diabetic Diet DVT ppx: Heparin SQ TID Dispo: Continue to monitor on floor Visit type - Emergency Visit Emergency Visit: Yes ED Registration Date: 01/30/18 Care time: The patient presented to the Emergency Department on the above date and was hospitalized for further evaluation of their emergent condition. - New Patient This patient is new to me today: Yes Date on this admission: 01/31/18 - Critical Care Critical Care patient: No
[2018-01-31] MEDS: ALBUTEROL SO4 2.5/IPRATROPIUM 0.5 INH SOL 3 ML VIAL.NEB. NEB PRN ×4 (02:52→20:55)
[2018-01-31 04:00] VITALS: BMI 61.6
[2018-01-31] MEDS ORDERED: INSULIN SLIDING SCALE (NOVOLOG) 1 VIAL SQ SCH (07:00)
[2018-01-31 07:06] LABS: BASO % 0.2 % (0-2.0); HEMATOCRIT 34.9 % (32.4-45.2); HEMOGLOBIN 10.5 GM/dL (10.7-15.3); LYMPH % 13.5 % (8-40); MCH 21.1 pg (25.7-33.7); MEAN CELL VOLUME 70.2 fl (80-96); MEAN PLT VOLUME 7.6 fl (7.5-11.1); NEUT % 80.3 % (42.8-82.8); PLATELET COUNT 400 K/MM3 (134-434); RBC 4.97 M/mm3 (3.60-5.2); WHITE BLOOD COUNT 14.4 K/mm3 (4.0-10.0)
[2018-01-31] MEDS: INSULIN SLIDING SCALE (NOVOLOG) 1 VIAL SQ SCH ×4 (07:07→21:24)
[2018-01-31] MEDS: HEPARIN NA (PORCINE) 5,000 UNITS/ML 1ML VIAL SQ SCH ×3 (07:09→21:20)
[2018-01-31 07:17] LABS: INR 1.18 (0.83-1.09)
[2018-01-31 07:20] LABS: ACTIVATED PTT 27.7 SECONDS (25.2-36.5)
[2018-01-31 07:44] LABS: ANION GAP 8 MMOL/L (8-16); BLOOD UREA NITROGEN 8 mg/dL (7-18); CALCIUM 8.8 mg/dL (8.5-10.1); CHLORIDE 104 mmol/L (98-107); CO2 24 mmol/L (21-32); CREATININE 0.7 mg/dL (0.55-1.3); GLUCOSE,RANDOM 128 mg/dL (74-106); MAGNESIUM 2.4 mg/dL (1.8-2.4); PHOSPHOROUS 2.9 mg/dL (2.5-4.9); POTASSIUM 4.2 mmol/L (3.5-5.1); SODIUM 136 mmol/L (136-145)
[2018-01-31] MEDS: ALBUTEROL SO4 2.5/IPRATROPIUM 0.5 INH SOL 3 ML VIAL.NEB. NEB SCH (09:57)
[2018-01-31] MEDS ORDERED: predniSONE 20 MG TABLET (UD) PO SCH (10:00)
[2018-01-31] MEDS ORDERED: CEFTRIAXONE 1 GM in DEXTROSE 5%-WATER 100 ML IVPB ONE (13:24)
[2018-01-31] MEDS ORDERED: DEXTROSE 5%-WATER 100 ML IVPB ONE (13:42)
[2018-01-31] MEDS ORDERED: cefTRIAXone SODIUM 1 GM VIAL ONE (13:42)
[2018-01-31] MEDS: methylPREDNISolone NA SUCC 40 MG/1 ML VIAL IVPUSH SCH ×2 (13:51→21:20)
[2018-01-31] MEDS ORDERED: INSULIN (NOVOLOG) ASPART 100 UNITS/ML 10ML VIAL ONE (16:37)
--- NOTE | 2018-01-31 17:41 | PN ---
Teaching Attending Note Name of Resident: Luke Pulido ATTENDING PHYSICIAN STATEMENT I saw and evaluated the patient. I reviewed the resident's note and discussed the case with the resident. I agree with the resident's findings and plan as documented. SUBJECTIVE:states breathing is not improved from arrival. was started on a zpack earlier in the week which she completed wihtout steroids which she had minimal relief. symptoms worsened over the weekend. continues ot have a cough with whitish sputum. denies Cp, SOB, fever, chills, N/V/C/D, no body aches states she thinks her nephew who is in school may have had a cough. was last on steroids in october 2017. OBJECTIVE: Last Vital Signs Temp Pulse Resp BP Pulse Ox 98.3 F 96 H 18 147/73 96 01/31/18 14:27 01/31/18 14:27 01/31/18 14:27 01/31/18 14:27 01/31/18 16:00 General NAD CV S1 s2 RRR no murmur/rub/gallop lungs difffuse wheezing. good inspiratory effort Abdomen soft NT/ND obese ASSESSMENT AND PLAN: 47yo F with PMH ashtma, HIV on HARRT, PUMA refuses cpap, iron def anemia, DM , HTN and morbid obesity presented to the ER wtih worsening shortness of breath 1. Acute Asthma exacerbation- unable to local peak flow to assess. received pred 60mg in the ER. will increase steroids to medrol 40mg BID, start ceftriaxone 1g daily. cont nebs RTC and cont inhalers. currently 96% on RA 2. HIV on HARRT- requested pt to bring in home medications as not formulary here 3. PUMA- refuses to use cpap. educated on importance of compliance and increased mortality. 4. Dm- hold oral agents. iss nad BGM 5. HTN- controlled. cont home medication 6. DVT ppx- Hep sq
--- NOTE | 2018-01-31 17:45 | PN ---
Physical Exam: SUBJECTIVE: Patient seen and examined this AM. She states that she is very SOB on exertion but is more comfortable at rest. She is audibly wheezing currently. Denies any fevers, chills, myalgias, n/v/d OBJECTIVE: Vital Signs Period Temp Pulse Resp BP Sys/So Pulse Ox Last 24 Hr 97.5 F-98.4 F 87-112 16-24 127-147/68-86 96-100 GENERAL: A&O, morbidly obese, no acute distress HEAD: Normocephalic, atraumatic. EYES: PERRL, no scleral icterus EARS, NOSE, THROAT: oropharynx clear without exudates. Moist mucous membranes. NECK: supple without lymphadenopathy LUNGS: Audible wheezing heard. Inspiratory and expiratory wheezes diffusely, decreased air entry HEART: Regular rate and rhythm, normal S1 and S2 without murmur ABDOMEN: Soft, nontender to palpation, normoactive bowel sounds MUSCULOSKELETAL: No bony deformities or tenderness. EXTREMITIES: 2+ pulses, warm, well-perfused. No peripheral edema. NEUROLOGICAL: Cranial nerves II-XII grossly intact. Normal speech. PSYCHIATRIC: Cooperative. Good eye contact. Appropriate mood and affect. SKIN: Warm, dry, no rashes or lesions noted Laboratory Results - last 24 hr 01/30/18 01/30/18 01/31/18 18:00 18:00 06:30 WBC 14.2 H 14.4 H RBC 4.99 4.97 Hgb 10.8 10.5 L Hct 35.6 34.9 MCV 71.3 L 70.2 L MCH 21.6 L 21.1 L MCHC 30.3 L 30.0 L RDW 22.2 H 22.0 H Plt Count 359 400 MPV 7.7 7.6 Absolute Neuts (auto) 11.3 H 11.6 H Neutrophils % 79.4 80.3 Lymphocytes % 15.5 D 13.5 Monocytes % 3.8 6.0 Eosinophils % 0.4 D 0.0 D Basophils % 0.9 D 0.2 Nucleated RBC % 0 0 PT with INR INR PTT (Actin FS) Sodium 139 Potassium 4.2 Chloride 107 Carbon Dioxide 20 L Anion Gap 12 BUN 8 Creatinine 0.8 Creat Clearance w eGFR > 60 POC Glucometer Random Glucose 129 H Calcium 8.5 Phosphorus Magnesium Total Bilirubin 0.2 AST 16 ALT 19 Alkaline Phosphatase 61 Total Protein 7.2 Albumin 3.4 01/31/18 01/31/18 01/31/18 06:30 06:30 07:06 WBC RBC Hgb Hct MCV MCH MCHC RDW Plt Count MPV Absolute Neuts (auto) Neutrophils % Lymphocytes % Monocytes % Eosinophils % Basophils % Nucleated RBC % PT with INR 14.00 H INR 1.18 H PTT (Actin FS) 27.7 Sodium 136 Potassium 4.2 Chloride 104 Carbon Dioxide 24 Anion Gap 8 BUN 8 Creatinine 0.7 Creat Clearance w eGFR > 60 POC Glucometer 134 Random Glucose 128 H Calcium 8.8 Phosphorus 2.9 Magnesium 2.4 Total Bilirubin AST ALT Alkaline Phosphatase Total Protein Albumin 01/31/18 01/31/18 11:35 16:34 WBC RBC Hgb Hct MCV MCH MCHC RDW Plt Count MPV Absolute Neuts (auto) Neutrophils % Lymphocytes % Monocytes % Eosinophils % Basophils % Nucleated RBC % PT with INR INR PTT (Actin FS) Sodium Potassium Chloride Carbon Dioxide Anion Gap BUN Creatinine Creat Clearance w eGFR POC Glucometer 133 267 Random Glucose Calcium Phosphorus Magnesium Total Bilirubin AST ALT Alkaline Phosphatase Total Protein Albumin Active Medications Generic Name Dose Route Start Last Admin Trade Name Freq PRN Reason Stop Dose Admin Albuterol/Ipratropium 1 amp 01/31/18 02:24 01/31/18 16:31 Duoneb - NEB 1 amp Q4H PRN Administration ASTHMA Heparin Sodium (Porcine) 5,000 unit 01/31/18 06:00 01/31/18 13:51 Heparin - SQ 5,000 unit TID KAREN Administration Insulin Aspart 1 vial 01/31/18 07:00 01/31/18 16:38 Novolog Vial Sliding Scale - SQ 6 units ACHS KAREN Administration Protocol Methylprednisolone Sodium Succinate 40 mg 01/31/18 13:30 01/31/18 13:51 Solu-Medrol - IVPUSH 40 mg BID KAREN Administration ASSESSMENT/PLAN: 47 y/o f with a signififcant past medical history of asthma, HIV (last CD4 count 889 in Fe of this year, f/u with I.D regularly), PUMA, Iron deficiency anemia, DM, and HTN admitted for exacerbation of her asthma. Asthma Exacerbation - Acute hypoxic respiratory distress -Pt with recent URI, s/p Z-pack, URI resolved with continuation of cough and worsening SOB -Peak flow at home is 250 per pt at baseline -Repeat peak flow here -Cetriaxone 1 gm IV Daily -SoluMedrol 40 mg IV BID -Restart home meds, Symbicort, Spiriva, Singulair -Duonebs PRN Q4 NIDDM -BGMs ACHS -Insulin sliding scale for glycemic control HTN -Not on any home bp meds, pressure stable now -Reassess in AM Iron Deficiency anemia -stable Hgb, not on Iron outpatient -Will trend Hgb Obstructive Sleep Apnea -Pt diagnosed with PUMA in the past, does not use CPAP -Pt refusing CPAP on this admission HIV -Last CD4 count 889 as per patient -Pt says we do not have her HIV meds on previous admission, will have her bring them for her DVT Prophylaxis -Heparin 5000 units SQ TID FEN -Fluids: none -Electrolytes: No electrolyte abnormalities -Nutrition: Diabetic Diet Disposition Med/Surg Visit type - Emergency Visit Emergency Visit: Yes ED Registration Date: 01/30/18 Care time: The patient presented to the Emergency Department on the above date and was hospitalized for further evaluation of their emergent condition. - New Patient This patient is new to me today: Yes Date on this admission: 01/31/18 - Critical Care Critical Care patient: No
[2018-01-31] MEDS ORDERED: PT OWN MED DRAWER 7, Y5N ONE (21:06)
[2018-01-31] MEDS ORDERED: MONTELUKAST NA 10 MG TABLET PO SCH (22:00)
[2018-01-31] MEDS: BUDESONIDE/FORMETEROL FUMARATE 160/4.5 mcg INHALER IH SCH (22:26)
[2018-02-01] MEDS: ALBUTEROL SO4 2.5/IPRATROPIUM 0.5 INH SOL 3 ML VIAL.NEB. NEB PRN ×2 (04:07→08:01)
[2018-02-01] MEDS: HEPARIN NA (PORCINE) 5,000 UNITS/ML 1ML VIAL SQ SCH ×2 (05:27→14:10)
[2018-02-01] MEDS: INSULIN SLIDING SCALE (NOVOLOG) 1 VIAL SQ SCH ×3 (06:12→18:08)
[2018-02-01] MEDS ORDERED: PT OWN MED DRAWER 7, Y5N ONE (07:16)
[2018-02-01 09:51] LABS: BASO % 1.1 % (0-2.0); HEMATOCRIT 36.7 % (32.4-45.2); HEMOGLOBIN 11.1 GM/dL (10.7-15.3); LYMPH % 15.4 % (8-40); MCH 21.7 pg (25.7-33.7); MCHC 30.3 g/dl (32.0-36.0); MEAN CELL VOLUME 71.7 fl (80-96); MONO % 5.3 % (3.8-10.2); NEUT % 78.2 % (42.8-82.8); PLATELET COUNT 450 K/MM3 (134-434); RBC 5.12 M/mm3 (3.60-5.2); RDW 22.3 % (11.6-15.6); WHITE BLOOD COUNT 19.9 K/mm3 (4.0-10.0)
[2018-02-01] MEDS ORDERED: PATIENT'S OWN MEDICATION (NON-FORMULARY) (Elviteg/Cob/Emtri/Tenof Alafen [Genvoya (Non-For PO SCH (10:00)
[2018-02-01] MEDS ORDERED: CEFTRIAXONE 1 GM in DEXTROSE 5%-WATER - 50 ML IVPB SCH (10:00)
[2018-02-01] MEDS ORDERED: TIOTROPIUM BROMIDE 2.5 MCG (SPIRIVA) RESPIMAT INHALER IH SCH (10:00)
[2018-02-01] MEDS ORDERED: cefTRIAXone SODIUM 1 GM VIAL ONE (10:21)
[2018-02-01] MEDS ORDERED: DEXTROSE 5%-WATER - 50 ML IVPB ONE (10:22)
[2018-02-01] MEDS: methylPREDNISolone NA SUCC 40 MG/1 ML VIAL IVPUSH SCH (10:56)
[2018-02-01] MEDS: BUDESONIDE/FORMETEROL FUMARATE 160/4.5 mcg INHALER IH SCH (10:57)
[2018-02-01] MEDS: OMEGA-3 ACID ETHYL ESTERS (FATTY-ACIDS) 1 GM CAPSULE (FP) PO SCH ×2 (10:59→11:10)
--- NOTE | 2018-02-01 14:14 | PN ---
Teaching Attending Note Name of Resident: Luke Pulido ATTENDING PHYSICIAN STATEMENT I saw and evaluated the patient. I reviewed the resident's note and discussed the case with the resident. I agree with the resident's findings and plan as documented. SUBJECTIVE:states she feels much improved since yesterday. has non productive cough. was able to ambulate most of the hallway prior to becoming dyspnic. denies Cp, fever, chills, N/V/C/D eager to go home OBJECTIVE: Last Vital Signs Temp Pulse Resp BP Pulse Ox 98.1 F 95 H 22 H 137/72 96 02/01/18 10:00 02/01/18 10:00 02/01/18 10:00 02/01/18 10:00 02/01/18 10:00 General NAD lungs scattered wheezing. good inspiratory effort ASSESSMENT AND PLAN: 47yo F with PMH ashtma, HIV on HARRT, PUMA refuses cpap, iron def anemia, DM , HTN and morbid obesity presented to the ER wtih worsening shortness of breath 1. Acute Asthma exacerbation-peak flow at baseline 250. on medrol 40mg BID. can d/c on slow steroid taper and decrease by 10mg every 3 days. cont inhalers and nebs prn. encouraged to f/u with pulm as outpatient. states she is unable to see pulm group at [facility] as they do not accept her insurance. instructed her to call insurance for list of providers. 2. HIV on HARRT- requested pt to bring in home medications as not formulary here 3. PUMA- refuses to use cpap. educated on importance of compliance and increased mortality. 4. Dm- hold oral agents. iss nad BGM 5. HTN- controlled. cont home medication 6. Morbid obesity- BMI 61. bariatric referral. on previous admission she stated she is able to loose the weight on her own and has been doing so. pt is currently the same weight from 3 months ago. encouraged healthly lifestyle modifications 7. DVT ppx- Hep sq 8. d/c home
--- NOTE | 2018-02-01 14:22 | DS ---
Physical Exam: SUBJECTIVE: Patient seen and examined this AM. She says that she is feeling better than yesterday, but still very wheezy. She is requesting to go home saying that she doesnt think she needs to be in the hospital anymore. OBJECTIVE: Vital Signs Period Temp Pulse Resp BP Sys/So Pulse Ox Last 24 Hr 98.1 F-98.3 F 88-99 18-26 121-147/62-74 96-96 PHYSICAL EXAM GENERAL: A&O, morbidly obese, no acute distress HEAD: Normocephalic, atraumatic. EYES: PERRL, no scleral icterus EARS, NOSE, THROAT: oropharynx clear without exudates. Moist mucous membranes. NECK: supple without lymphadenopathy LUNGS: Audible wheezing heard. Inspiratory and expiratory wheezes diffusely, air entry improved from yesterday HEART: Regular rate and rhythm, normal S1 and S2 without murmur ABDOMEN: Soft, nontender to palpation, normoactive bowel sounds MUSCULOSKELETAL: No bony deformities or tenderness. EXTREMITIES: 2+ pulses, warm, well-perfused. No peripheral edema. NEUROLOGICAL: Cranial nerves II-XII grossly intact. Normal speech. PSYCHIATRIC: Cooperative. Good eye contact. Appropriate mood and affect. SKIN: Warm, dry, no rashes or lesions noted LABS Laboratory Results - last 24 hr 01/31/18 01/31/18 02/01/18 16:34 21:23 05:26 WBC RBC Hgb Hct MCV MCH MCHC RDW Plt Count MPV Absolute Neuts (auto) Neutrophils % Lymphocytes % Monocytes % Eosinophils % Basophils % Nucleated RBC % POC Glucometer 267 174 200 02/01/18 02/01/18 08:35 11:47 WBC 19.9 H RBC 5.12 Hgb 11.1 Hct 36.7 MCV 71.7 L MCH 21.7 L MCHC 30.3 L RDW 22.3 H Plt Count 450 H MPV 8.0 Absolute Neuts (auto) 15.6 H Neutrophils % 78.2 Lymphocytes % 15.4 Monocytes % 5.3 Eosinophils % 0.0 Basophils % 1.1 D Nucleated RBC % 0 POC Glucometer 151 IMAGING: CXR: No Acute Pathology HOSPITAL COURSE: Date of Admission:01/30/18 Date of Discharge: 02/01/18 47 y/o f with a signififcant past medical history of asthma, HIV (last CD4 count 889 in May of this year, f/u with I.D regularly), PUMA, Iron deficiency anemia, DM, and HTN admitted for exacerbation of her asthma following a recent URI. She was given IV Mg and Medrol in the ED and started on SoluMedrol 40 mg IV BID with Ceftriaxone 1gm Daily during the admission in addition to her home inhalers and duonebs as needed. She improved very quickly and was deemed medically safe for discharge. She was also requesting to go home at that time. She was sent home on a prednisone taper 40 mg PO Daily for 3 days and then decreased by 10 in three day intervals until completed. Minutes to complete discharge: 40 Discharge Summary Reason For Visit: ASTHMA W/ACUTE EXACERBATION Current Active Problems Acute bronchitis (Acute) Asthma exacerbation (Acute) Condition: Stable - Instructions Diet, Activity, Other Instructions: You were admitted to the hospital for an exacerbation of your asthma that was likely caused by a recent upper respiratory tract infection. During the admission you were given IV steroids and antibiotics and you rapidly improved. You were requesting to go home and deemed medically safe for discharge at this time. It is very important that you lose weight. It is likely playing a role in your sleep apnea and asthma exacerbations. There is also information for a bariatric surgeon provided in your discharge packet. It is recommended that you attempt lifestyle changes for weight loss with diet and exercise and consider an outpatient follow up with him. Although it is uncomfortable it is highly recommended that you continue to use your cpap machine at bedtime. You are being discharged with a steroid taper. Starting tomorrow take prednisone 40mg (4 tabs) from 02/02-02/04 30mg (3 tabs) from 02/05- 02/07 20mg (2 tabs) from 02/08 -02/10 10mg (1 tab) from 02/11- 02/13 You should otherwise continue all of your home medications, inhalers and breathing treatments as they are prescribed prior to this admission. Please follow-up with cheese cook for your asthma. You should call your insurance company and get a list of physician that accept your insurance in your office. Follow up with your primary care doctor in 1 week, If you begin to have severe Shortness of breath or difficulty breathing, chest pain, high fevers, or confusion, you should call your doctor or return to the Emergency Department immediately. Referrals: Sky Orlando MD [Staff Physician] - Disposition: HOME - Home Medications Comprehensive Discharge Medication List: Ambulatory Orders Elviteg/Cob/Emtri/Tenof Alafen [Genvoya (Non-Formulary)] 1 tab PO DAILY Budesonide/Formeterol Fumarate [SYMBICORT 160/4.5mcg -] 2 inh PO BID 02/20/17 Acetylcysteine Po/INH 20% [Mucomyst 20 Oral / INH Use Only*] 200 mg NEB RQID #1 vial 11/23/17 Miscellaneous Medical Supply [Glucometer Device] 1 each SQ ASDIR #1 kit Miscellaneous Medical Supply [Glucometer Test Strips #100] 1 each SQ ASDIR #1 box 11/23/17 Miscellaneous Medical Supply [Outpatient Order] 1 each MC ASDIR #100 misc Montelukast Na [Singulair -] 10 mg PO HS #1 tablet 11/23/17 Pantoprazole Sodium [Protonix] 40 mg PO DAILY #14 tablet. 11/23/17 Tiotropium [place] [Spiriva] 1 puff IH DAILY 30 Days #1 cap 11/23/17 Cholecalciferol (Vitamin D3) [D3-50] 50,000 unit PO WEEKLY 01/31/18 Metformin HCl [Metformin HCl ER] 500 mg PO BID 01/31/18 [place]-3/Dha/Epa/Fish Oil [[place] 3 500 Softgel] 2 each PO DAILY 01/31/18 predniSONE [Deltasone -] See Taper PO DAILY #30 tablet 02/01/18 This patient is new to me today: No Emergency Visit: Yes ED Registration Date: 01/30/18 Care time: The patient presented to the Emergency Department on the above date and was hospitalized for further evaluation of their emergent condition. Critical Care patient: No - Discharge Referral Referred to [facility] No
[2018-02-01 14:42] VITALS: BP 131/67; PULSE 92; TEMP 98.6
== END 2018-02-01 16:55 | disposition home or self-care (01) ==
LOC: JER 14:36 → JERBED 22:28 → J8W 01-31 02:17
PROVIDERS: ADMIT Internal Medicine; ATTEND Internal Medicine
PROC: 3E03329 Introduction of Other Anti-infective into Peripheral Vein, Percutaneous Approach (ICD-10-PCS; principal; 2018-01-30)
PROC: 3E0333Z Introduction of Anti-inflammatory into Peripheral Vein, Percutaneous Approach (ICD-10-PCS; 2018-01-30)
PROC: 3E033GC Introduction of Other Therapeutic Substance into Peripheral Vein, Percutaneous Approach (ICD-10-PCS; 2018-01-30)
PROC: 3E0F7GC Introduction of Other Therapeutic Substance into Respiratory Tract, Via Natural or Artificial Opening (ICD-10-PCS; 2018-01-30)
DX: J45.41 Moderate persistent asthma with (acute) exacerbation (principal); J20.9 Acute bronchitis, unspecified; E11.9 Type 2 diabetes mellitus without complications; D50.9 Iron deficiency anemia, unspecified; G47.33 Obstructive sleep apnea (adult) (pediatric); Z21 Asymptomatic human immunodeficiency virus [HIV] infection status; E66.01 Morbid (severe) obesity due to excess calories; Z68.44 Body mass index [BMI] 60.0-69.9, adult; Z79.84 Long term (current) use of oral hypoglycemic drugs; Z88.8 Allergy status to other drugs, medicaments and biological substances
CPT/HCPCS: 36415; 71046-TC-FY; 80048; 80053; 82962; 83735; 84100; 84703; 85025; 85610; 85730; 94640; 96365; 96375; 99285-25; G0378; J1644; J7620

== ENCOUNTER 2018-05-09 16:00 | Inpatient (IN) | payer OTHER ==
[2018-05-09] MEDS ORDERED: ALBUTEROL SO4 2.5/IPRATROPIUM 0.5 INH SOL 3 ML VIAL.NEB. NEB ONE ×4 (16:09→17:27)
[2018-05-09] MEDS ORDERED: methylPREDNISolone NA SUCC 125 MG/2 ML VIAL IVPB ONE (16:10)
--- NOTE | 2018-05-09 16:11 | PDOC ---
Rapid Medical Evaluation Chief Complaint: Shortness of Breath Time Seen by Provider: 05/09/18 16:09 Medical Evaluation: Allergies Allergy/AdvReac Type Severity Reaction Status Date / Time omeprazole [From Prilosec] Allergy Mild Hives Verified 11/10/17 01:06 omeprazole magnesium Allergy Mild Hives Verified 11/10/17 01:06 [From Prilose] 05/09/18 16:10 Pt c/o: wheezing, cough, no relief with nebs and inhalers x 2 days, no fever Pt on brief exam: exp wheeze mya, vss pt to proceed to the ED Discharge Disposition - Diagnosis Asthma - Referrals - Patient Instructions - Post Discharge Activity
[2018-05-09 16:35] LABS: BASO % 0.2 % (0-2.0); EOS % 0.9 % (0-4.5); HEMATOCRIT 33.4 % (32.4-45.2); HEMOGLOBIN 10.4 GM/dL (10.7-15.3); LYMPH % 15.9 % (8-40); MCH 21.7 pg (25.7-33.7); MCHC 31.3 g/dl (32.0-36.0); MEAN CELL VOLUME 69.3 fl (80-96); MEAN PLT VOLUME 7.1 fl (7.5-11.1); MONO % 5.8 % (3.8-10.2); NEUT % 77.2 % (42.8-82.8); PLATELET COUNT 411 K/MM3 (134-434); RBC 4.82 M/mm3 (3.60-5.2); RDW 19.2 % (11.6-15.6); WHITE BLOOD COUNT 13.7 K/mm3 (4.0-10.0)
[2018-05-09] MEDS ORDERED: methylPREDNISolone NA SUCC 125 MG/2 ML VIAL ONE (17:03)
[2018-05-09 17:04] LABS: ALBUMIN 3.1 g/dl (3.4-5.0); ALK PHOS 72 U/L (45-117); ANION GAP 9 MMOL/L (8-16); BILIRUBIN,TOTAL 0.3 mg/dL (0.2-1); BLOOD UREA NITROGEN 7 mg/dL (7-18); CALCIUM 8.4 mg/dL (8.5-10.1); CHLORIDE 104 mmol/L (98-107); CO2 26 mmol/L (21-32); CREATININE 0.8 mg/dL (0.55-1.3); GLUCOSE,RANDOM 119 mg/dL (74-106); POTASSIUM 3.8 mmol/L (3.5-5.1); SGOT/AST 12 U/L (15-37); SGPT/ALT 17 U/L (13-61); SODIUM 139 mmol/L (136-145); TOT PROT 6.9 g/dl (6.4-8.2)
[2018-05-09] MEDS ORDERED: methylPREDNISolone NA SUCC 125 MG/2 ML VIAL IM ONE (17:04)
--- NOTE | 2018-05-09 17:48 | PDOC ---
History of Present Illness - General Chief Complaint: Shortness of Breath Stated Complaint: ASTHMA, SWOLLEN LEGS Time Seen by Provider: 05/09/18 16:09 History Source: Patient Exam Limitations: Clinical Condition - History of Present Illness Initial Comments: 05/09/18 17:41 Patient with history of asthma,PUMA, HIV, iron deficiency anemia present with complaint of 4 day history of worsening as asthma exacerbation which has not been responding to home rescue inhaler and nebulizer. Patient also reported three-day history of worsening swelling to bilateral lower legs swelling left greater than right. Patient reports elevating legs but does not help with swelling. Patient reported mild calf pain on bilateral sides. Patient denies chest pain, dizziness, sweats, abdominal pain or fever. Patient denies any other symptoms Timing/Duration: other (3 days) Past History - Past Medical History Allergies/Adverse Reactions: Allergies Allergy/AdvReac Type Severity Reaction Status Date / Time omeprazole [From Prilosec] Allergy Mild Hives Verified 11/10/17 01:06 omeprazole magnesium Allergy Mild Hives Verified 11/10/17 01:06 [From Prilosec] Home Medications: Ambulatory Orders Elviteg/Cob/Emtri/Tenof Alafen [Genvoya (Non-Formulary)] 1 tab PO DAILY Budesonide/Formeterol Fumarate [SYMBICORT 160/4.5mcg -] 2 inh PO BID 02/20/17 Acetylcysteine Po/INH 20% [Mucomyst 20 Oral / INH Use Only*] 200 mg NEB RQID #1 vial 11/23/17 Miscellaneous Medical Supply [Glucometer Device] 1 each SQ ASDIR #1 kit Miscellaneous Medical Supply [Glucometer Test Strips #100] 1 each SQ ASDIR #1 box 11/23/17 Miscellaneous Medical Supply [Outpatient Order] 1 each MC ASDIR #100 misc Montelukast Na [Singulair -] 10 mg PO HS #1 tablet 11/23/17 Pantoprazole Sodium [Protonix] 40 mg PO DAILY #14 tablet. 11/23/17 Tiotropium [place] [Spiriva] 1 puff IH DAILY 30 Days #1 cap 11/23/17 Cholecalciferol (Vitamin D3) [D3-50] 50,000 unit PO WEEKLY 01/31/18 Metformin HCl [Metformin HCl ER] 500 mg PO BID 01/31/18 [place]-3/Dha/Epa/Fish Oil [[place] 3 500 Softgel] 2 each PO DAILY 01/31/18 predniSONE [Deltasone -] See Taper PO DAILY #30 tablet 02/01/18 Anemia: Yes (IRON DEF) Asthma: Yes Cancer: No Cardiac Disorders: No CVA: No COPD: No CHF: No DVT: No Dementia: No Diabetes: No GI Disorders: No Disorders: No HTN: No Hypercholesterolemia: No Liver Disease: No Seizures: No Thyroid Disease: No - Surgical History Abdominal Surgery: Yes Appendectomy: No Cardiac Surgery: No Cholecystectomy: No Lung Surgery: No Neurologic Surgery: No Orthopedic Surgery: No - Family Disease History Family Disease History: Diabetes: Father, Heart Disease: Father - Reproductive History (#): 6 Para: 5 Cervical CA: No Dysfunctional Uterine Bleeding: Yes Ectopic : No Endometrial CA: No Polycystic Ovaries: No Therapeutic (s) & number: No Tubal Ligation: No Spontaneous : 1 - Immunization History Immunization Up to Date: Yes - Suicide/Smoking/Psychosocial Hx Smoking History: Never smoked Have you smoked in the past 12 months: No Hx Alcohol Use: No Drug/Substance Use Hx: No Substance Use Type: None Hx Substance Use Treatment: No Review of Systems - Review of Systems Able to Perform ROS?: Yes Is the patient limited [place]ian proficient: No Constitutional: No: Chills, Fever, Weakness HEENTM: Yes: Symptoms Reported, Nose Congestion. No: See HPI, Eye Pain, Blurred Vision, Tearing, Recent change in vision, Double Vision, Cataracts, Ear Pain, Ocular Prothesis, Ear Discharge, Nose Pain, Tinnitus, Nose Bleeding, Hearing Loss, Throat Pain, Throat Swelling, Mouth Pain, Dental Problems, Difficulty Swallowing, Mouth Swelling, Other Respiratory: Yes: Symptoms reported, See HPI, Cough (intermittent), Shortness of Breath, Productive cough (yellow). No: Orthopnea, SOB with Exertion, SOB at Rest, Stridor, Wheezing, Hemoptysis, Other Cardiac (ROS): No: Symptoms Reported, See HPI, Chest Pain, Edema, Irregular Heart Rate, Lightheadedness, Palpitations, Syncope, Chest Tightness, Other ABD/GI: No: Nausea, Vomiting Musculoskeletal: Yes: Other (b/l LE swelling) Hematologic/Lymphatic: Yes: Anemia *Physical Exam - Vital Signs Last Vital Signs Temp Pulse Resp BP Pulse Ox 98.0 F 84 16 132/91 95 05/09/18 16:10 05/09/18 16:10 05/09/18 16:10 05/09/18 16:10 05/09/18 16:10 - Physical Exam Comments: 05/09/18 17:45 GENERAL: Well developed, well nourished. Awake and alert. No acute distress. HEENT: Normocephalic, atraumatic. PERRLA, EOMI. No conjunctival pallor. Sclera are non-icteric. Moist mucous membranes. Oropharynx is clear. NECK: Supple. Full ROM. CARDIOVASCULAR: Regular rate and rhythm. No murmurs, rubs, or gallops. Distal pulses are 2+ and symmetric. PULMONARY: moderate diffused wheezing.No evidence of respiratory distress. No rales or rhonchi. ABDOMINAL: Soft. Non-tender. Non-distended. No rebound or guarding. No organomegaly. Normoactive bowel sounds. MUSCULOSKELETAL Normal range of motion at all joints. EXTREMITIES: No cyanosis. moderate b/l LE edema. No calf tenderness. left >right. No increased warmth to LE b/l. negative horman's sign of b/l LE. SKIN: Warm and dry. NEUROLOGICAL: Alert, awake, appropriate. Gait is normal without ataxia. PSYCHIATRIC: Cooperative. Good eye contact. Appropriate mood General Appearance: Yes: Nourished, Appropriately Dressed. No: Apparent Distress Moderate Sedation - Procedure Monitoring Vital Signs: Procedure Monitoring Vital Signs Temperature 98.0 F 05/09/18 16:10 Pulse Rate 84 05/09/18 16:10 Respiratory Rate 16 05/09/18 16:10 Blood Pressure 132/91 05/09/18 16:10 O2 Sat by Pulse Oximetry (%) 95 05/09/18 16:10 ED Treatment Course - LABORATORY CBC & Chemistry Diagram: 05/09/18 16:22 05/09/18 16:22 - ADDITIONAL ORDERS Additional order review: Laboratory Results 05/09/18 16:22 Sodium 139 Potassium 3.8 Chloride 104 Carbon Dioxide 26 Anion Gap 9 BUN 7 Creatinine 0.8 Creat Clearance w eGFR > 60 Random Glucose 119 H Calcium 8.4 L Total Bilirubin 0.3 AST 12 L ALT 17 Alkaline Phosphatase 72 Total Protein 6.9 Albumin 3.1 L 05/09/18 16:22 RBC 4.82 MCV 69.3 L MCHC 31.3 L RDW 19.2 H MPV 7.1 L D Neutrophils % 77.2 Lymphocytes % 15.9 Monocytes % 5.8 Eosinophils % 0.9 D Basophils % 0.2 - RADIOLOGY Radiology Studies Ordered: Category Date Time Status CHEST PA & LAT [RAD] Stat Radiology 05/09/18 17:19 Ordered DUPLEX VASCUL US-2LEGS [US] Stat Ultrasound 05/09/18 17:04 Ordered - Medications Given in the ED: ED Medications Discontinued Medications Generic Name Dose Route Start Last Admin Trade Name Freq PRN Reason Stop Dose Admin Albuterol/Ipratropium 1 amp 05/09/18 16:09 05/09/18 16:24 Duoneb - NEB 05/09/18 16:10 1 amp ONCE ONE Administration Albuterol/Ipratropium 1 amp 05/09/18 17:06 05/09/18 17:20 Duoneb - NEB 05/09/18 17:07 1 amp ONCE ONE Administration Albuterol/Ipratropium 1 amp 05/09/18 17:19 05/09/18 17:39 Duoneb - NEB 05/09/18 17:20 1 amp ONCE ONE Administration Methylprednisolone Sodium Succinate 125 mg 05/09/18 16:10 05/09/18 17:10 Solu-Medrol - IVPB 05/09/18 16:11 125 mg ONCE ONE Administration Methylprednisolone Sodium Succinate 125 mg 05/09/18 17:04 05/09/18 17:39 Solu-Medrol - IM 05/09/18 17:05 Not Given ONCE ONE Medical Decision Making - Medical Decision Making 05/09/18 17:48 05/09/18 17:41 Patient with history of asthma,PUMA, HIV, iron deficiency anemia present with complaint of 4 day history of worsening as asthma exacerbation which has not been responding to home rescue inhaler and nebulizer. Patient also reported three-day history of worsening swelling to bilateral lower legs swelling left greater than right. Patient reports elevating legs but does not help with swelling. Exam significant for moderate diffused wheezing.No evidence of respiratory distress. No rales or rhonchi.moderate b/l LE edema. No calf tenderness. left >right. No increased warmth to LE b/l. negative horman's sign of b/l LE. CBC shows mildly elevated WBC of 13. Chemistry labs still pending. Beta hCG ordered and chest x-ray ordered. Duplex of bilateral with extremity ordered to rule out DVT. Treat based on lab and imaging results. 05/09/18 19:17 beta hCG negative. Bilateral duplex ultrasound showed no DVT. Patient pending chest x-ray and will dispo after chest x-ray. Patient signout to night team. *DC/Admit/Observation/Transfer Diagnosis at time of Disposition: Asthma, Bronchitis, Pedal edema - Discharge Dispostion Condition at time of disposition: Stable - Referrals - Patient Instructions - Post Discharge Activity
--- NOTE | 2018-05-09 17:54 | PDOC ---
*Physical Exam - Vital Signs Last Vital Signs Temp Pulse Resp BP Pulse Ox 98.0 F 84 16 132/91 95 05/09/18 16:10 05/09/18 16:10 05/09/18 16:10 05/09/18 16:10 05/09/18 16:10 - Physical Exam Comments: 05/09/18 17:51 Afebrile, O2 sat 95% on room air, respiratory rate 18-20 Morbidly obese, otherwise seated comfortably in chair, speaking full sentences but slightly tachypnea No active cough during exam, good air movement bilaterally and symmetric, slight end expiratory wheezing scattered in the midlung sharp bilaterally without focally decreased breath sounds, no accessory muscle use, no crackles Heart is regular, abdomen benign, 1+ pitting edema bilaterally ED Treatment Course - LABORATORY CBC & Chemistry Diagram: 05/09/18 16:22 05/09/18 16:22 - ADDITIONAL ORDERS Additional order review: Laboratory Results 05/09/18 16:22 Sodium 139 Potassium 3.8 Chloride 104 Carbon Dioxide 26 Anion Gap 9 BUN 7 Creatinine 0.8 Creat Clearance w eGFR > 60 Random Glucose 119 H Calcium 8.4 L Total Bilirubin 0.3 AST 12 L ALT 17 Alkaline Phosphatase 72 Total Protein 6.9 Albumin 3.1 L 05/09/18 16:22 RBC 4.82 MCV 69.3 L MCHC 31.3 L RDW 19.2 H MPV 7.1 L D Neutrophils % 77.2 Lymphocytes % 15.9 Monocytes % 5.8 Eosinophils % 0.9 D Basophils % 0.2 - Medications Given in the ED: ED Medications Discontinued Medications Generic Name Dose Route Start Last Admin Trade Name Lauryn PRN Reason Stop Dose Admin Albuterol/Ipratropium 1 amp 05/09/18 16:09 05/09/18 16:24 Duoneb - NEB 05/09/18 16:10 1 amp ONCE ONE Administration Albuterol/Ipratropium 1 amp 05/09/18 17:06 05/09/18 17:20 Duoneb - NEB 05/09/18 17:07 1 amp ONCE ONE Administration Albuterol/Ipratropium 1 amp 05/09/18 17:19 05/09/18 17:39 Duoneb - NEB 05/09/18 17:20 1 amp ONCE ONE Administration Methylprednisolone Sodium Succinate 125 mg 05/09/18 16:10 05/09/18 17:10 Solu-Medrol - IVPB 05/09/18 16:11 125 mg ONCE ONE Administration Methylprednisolone Sodium Succinate 125 mg 05/09/18 17:04 05/09/18 17:39 Solu-Medrol - IM 05/09/18 17:05 Not Given ONCE ONE Medical Decision Making - Medical Decision Making 05/09/18 17:52 47-year-old female with well-controlled HIV, asthma with several admissions in the past, morbid obesity with PUMA presents with 2 weeks of slightly worsening cough and 3 days of green sputum, no fevers or chills or chest pain or lung pain , becoming slightly more dyspneic so presents for evaluation. Admittedly, she presents much earlier than she has in the past, which has prompted her previous admissions. Presentation seems most consistent with bronchitis/asthma exacerbation, rule out pneumonia. Labs are within normal limits with slight leukocytosis, which appears to be patient's baseline Chest x-ray, EKG Nebulizers and IV steroids Bilateral Dopplers ordered Reassess after nebulizers, if above is within normal limits we'll discuss with PCP Dr. Jones and Jessy regarding disposition. *DC/Admit/Observation/Transfer Diagnosis at time of Disposition: Asthma, Bronchitis - Referrals - Patient Instructions - Post Discharge Activity
[2018-05-09 18:47] LABS: ANISOCYTOSIS 1+; OVALOCYTE 1+; PLATELET ESTIMATE INCREASED
--- NOTE | 2018-05-09 19:38 | PDOC ---
*Physical Exam - Vital Signs Last Vital Signs Temp Pulse Resp BP Pulse Ox 98.0 F 84 16 132/91 95 05/09/18 16:10 05/09/18 16:10 05/09/18 16:10 05/09/18 16:10 05/09/18 16:10 ED Treatment Course - LABORATORY CBC & Chemistry Diagram: 05/09/18 16:22 05/09/18 16:22 - ADDITIONAL ORDERS Additional order review: Laboratory Results 05/09/18 05/09/18 17:21 16:22 Sodium 139 Potassium 3.8 Chloride 104 Carbon Dioxide 26 Anion Gap 9 BUN 7 Creatinine 0.8 Creat Clearance w eGFR > 60 Random Glucose 119 H Calcium 8.4 L Total Bilirubin 0.3 AST 12 L ALT 17 Alkaline Phosphatase 72 Total Protein 6.9 Albumin 3.1 L Beta HCG, Quant < 1.0 05/09/18 16:22 RBC 4.82 MCV 69.3 L MCHC 31.3 L RDW 19.2 H MPV 7.1 L D Neutrophils % 77.2 Lymphocytes % 15.9 Monocytes % 5.8 Eosinophils % 0.9 D Basophils % 0.2 - Medications Given in the ED: ED Medications Discontinued Medications Generic Name Dose Route Start Last Admin Trade Name Freq PRN Reason Stop Dose Admin Albuterol/Ipratropium 1 amp 05/09/18 16:09 05/09/18 16:24 Duoneb - NEB 05/09/18 16:10 1 amp ONCE ONE Administration Albuterol/Ipratropium 1 amp 05/09/18 17:06 05/09/18 17:20 Duoneb - NEB 05/09/18 17:07 1 amp ONCE ONE Administration Albuterol/Ipratropium 1 amp 05/09/18 17:19 05/09/18 17:39 Duoneb - NEB 05/09/18 17:20 1 amp ONCE ONE Administration Methylprednisolone Sodium Succinate 125 mg 05/09/18 16:10 05/09/18 17:10 Solu-Medrol - IVPB 05/09/18 16:11 125 mg ONCE ONE Administration Methylprednisolone Sodium Succinate 125 mg 05/09/18 17:04 05/09/18 17:39 Solu-Medrol - IM 05/09/18 17:05 Not Given ONCE ONE Medical Decision Making - Medical Decision Making Patient signed out to me by RICKY Calix Patient currently resting in no respiratory distress; patient mentions no improvement despite nebs x3 and steroids Mild wheezing still noted B/L and audible wheezing when patient is ambulatory CXR done - no changes from prior Will admit patient given still not feeling better; will give another dose of Albuterol neb and also Mg Sulfate 05/09/18 20:22 *DC/Admit/Observation/Transfer Diagnosis at time of Disposition: Asthma, Bronchitis, Pedal edema Asthma exacerbation Qualifiers: Asthma severity: moderate Asthma persistence: unspecified Qualified Code(s): J45.901 - Unspecified asthma with (acute) exacerbation - Discharge Dispostion Condition at time of disposition: Stable Decision to Admit order: Yes - Referrals Referrals: Carla Jiménez MD [Primary Care Provider] - - Patient Instructions - Post Discharge Activity
[2018-05-09] MEDS ORDERED: MAGNESIUM SULF 50% (8.12 MEQ/2 ML-1 GM VIAL) IVPB ONE (19:52)
[2018-05-09] MEDS ORDERED: ALBUTEROL SO4 0.083% IH SOL 2.5 MG/3 ML VIAL.NEB. NEB ONE ×2 (19:52→20:02)
[2018-05-09] MEDS ORDERED: MAGNESIUM 1GM/D5W - 2 GM/200 ML IVPB IVPB ONE (20:02)
[2018-05-09 20:48] LABS: URINE APPEARANCE CLOUDY; URINE BILIRUBIN NEGATIVE (<2.0 mg/dL); URINE COLOR YELLOW; URINE GLUCOSE (UA) NEGATIVE (NEGATIVE); URINE KETONE NEGATIVE (NEGATIVE); URINE LEUK ESTERASE TRACE (NEGATIVE); URINE NITRITE NEGATIVE (NEGATIVE); URINE PROTEIN NEGATIVE (NEGATIVE); URINE UROBILINOGEN NEGATIVE mg/dL (0.2-1.0)
[2018-05-09 20:50] LABS: EPI CELLS MODERATE /HPF (FEW); URINE BACTERIA RARE /hpf (NONE SEEN); URINE MUCUS RARE; YEAST FEW
--- NOTE | 2018-05-09 21:27 | PN ---
Teaching Attending Note Name of Resident: Fahad George ATTENDING PHYSICIAN STATEMENT I saw and evaluated the patient. I reviewed the resident's note and discussed the case with the resident. I agree with the resident's findings and plan as documented. SUBJECTIVE: Seen and examined; please refer to resident note for further historical information. Briefly, she presents for SOB. She has a history of asthma; was in ICU but not intubated previously. This is similar to her previous issues with asthma; she was referred to Dr. Martin in the past but hasn't been able to see him for insurance reasons. For her HIV she hasn't seen Dr. Jones since early 2017 and has an appointment for 2019. She had undetectible viral load and CD4 in 800s at that point per her. She tried multiple nebs at home, etc. but wheezing not improved so she came here. She occasionally gets wheezing with activity but resolves with rest; in general sx worse over the past month. She is doucmented on being on symbicort, singulair, rescue inhaler; she uses her rescue inhaler at least 3x day for the past month. In the ER they gave her duonebs, medrol, magnesium, and an additional albuterol. She is talking in full sentences with some mild wheezes. She is on 2L satting 96%. ABG pending. 10 sys ROS done and negative aside from HPI PMH and PSH reviewed (Asthma with last peak flow baseline recorded at 250, HIV on HAART, PUMA w/ hx noncompliance CPAP, DM, HTN, morbid obesity with prior bariatric sgy referral, prior H Pylori) FH asked and noncontributory Social hx reviewed Medication list reviewed; pending reconciliation OBJECTIVE: VS, labs, imaging reviewed NAD, AAO, morbidly obese resting in bed NC AT EOMI PERRLA Lungs with mild scattered wheezes but good air entry w/ sym exp RRR s1/2 no emmanuelle mgr NT ND +BS CN2-12 wnl, no fnd Normal mood, appropriate affect ABG pending Labs show WBC 13 with unremarkable chemistry and glu 119. UA is unremarkable, mildly low albumin at 3.1. Flu swab still pending. CXR unremarkable with final report pending Prior CD4 count in our system is 192 LE duplex done; negative for DVT b/l in ER EKG pending ASSESSMENT AND PLAN: Presents for asthma exacerbation 1) Acute Asthma Exacerbation 2) Leukocytosis 3) HIV on HAART -Continue HAART; check CD4 count. 4) PUMA noncompliant with CPAP 5) DM -Last A1c 6.6; hold MTF and SSI when inpatient. 6) Hx HTN -Not on home meds; monitor pressures 7) Morbid Obesity (BMI 60) -Referred to bariatric in the past; encourage her to FU FENA -PO fluids -PRN replete -DM -As tolerated Full Code
[2018-05-09] MEDS ORDERED: ALBUTEROL SO4 0.083% IH SOL 2.5 MG/3 ML VIAL.NEB. NEB PRN (21:55)
[2018-05-09] MEDS ORDERED: predniSONE 20 MG TABLET (UD) PO SCH (22:00)
[2018-05-09] MEDS ORDERED: predniSONE 20 MG TABLET (UD) ONE (22:16)
--- NOTE | 2018-05-09 22:17 | HP ---
Addendum entered and electronically signed by Gareth Rodriguez, RESIDENT 06:35: PLAN multiple brown painful skin lesions/pimples on calf and under armpits and on LUQ. PCP gave her bactrim but didnt help. - unclear etiology. does not appear cellulitic or infx. non-erythematous, no drainage. may be viral? vs hypersensitivity rexn consider derm consult can consult w/ ID monitor no abx at this time Addendum entered and electronically signed by Gareth Rodriguez, RESIDENT 06:33: home dose singulair Original Note: <Gareth Rodriguez - Last Filed: 05/10/18 06:33> CHIEF COMPLAINT: PCP: HISTORY OF PRESENT ILLNESS: 47 y/o F with PMHx of recurrent asthma exacerbations and hospitalizations, ( never intubated), DM, HTN, morbid obesity, PUMA w/ hx noncompliance CPAP, HIV ( on genvoya), anemia and chronic epigastric pain, p/w worsening SOB and wheezing x4d despite home rescue inhaler and nebulizer therapy, and w/ associated w/ greenish non bloody sputum. Pt says she has been having more frequent asthma attacks/episodes of sob and wheezing over the past month, particularly with activity, but most severe in the past 4 days where home rescue inhaler and nebulizer have not helped and can't walk more than 15-20 steps w/o getting SOB. Needed rescue inhaler at least 3x day for the past month. pt last exacerbation was back in october 2017. Pt says she has an exacerbation about twice a year (winter/spring). Pt reports recurrent exacerbations, with no known precipitators. Pt has never been intubaed but has required ICU monitoring. She has been referred to a leak detection engineer, Dr. Martin, in the past but hasn't been able to see him for insurance reasons. Of note, patient also reported three-day history of worsening swelling to bilateral lower legs swelling left greater than right. Patient reports elevating legs but does not help with swelling. Pt sleeps a lot in chair bec has trouble sleeping flat at night. Patient denies chest pain, dizziness, sweats, abdominal pain, n/v/d, urinary sxs, or fever, sick contacts. For her HIV she hasn't seen Dr. Jones since early 2017 and has an appointment for 2019. She had undetectable viral load and CD4 in 800s at that time Of note, has had multiple brown painful skin lesions/pimples on calf and under armpits and on LUQ. PCP gave her bactrim but didnt help. ER course was notable for: (1)DUONEB, SOLUMEDROL 125, albuterol, magnesium (2)beta hCG negative. Bilateral duplex ultrasound showed no DVT (3) CXR unremarable Recent Travel: [facility], came back New years weekend PAST MEDICAL HISTORY: Asthma with last peak flow baseline recorded at 250, HIV on HAART, PUMA w/ hx noncompliance CPAP, DM, HTN, morbid obesity with prior bariatric sgy referral, prior H Pylori PAST SURGICAL HISTORY: C/Section Social History: Smoking:Denies Alcohol:Denies Drugs: Denies Family History:Maternal aunt with asthma Mother with HTN, DM, HLD Allergies omeprazole [From Prilosec] Allergy (Mild, Verified 05/09/18 21:36) Hives omeprazole magnesium [From Prilosec] Allergy (Mild, Verified 05/09/18 21:36) Hives HOME MEDICATIONS: Home Medications Medication Instructions Recorded Elviteg/Cob/Emtri/Tenof Alafen 1 tab PO DAILY 02/19/17 [Genvoya (Non-Formulary)] Budesonide/Formeterol Fumarate 2 inh PO BID 02/20/17 [SYMBICORT 160/4.5mcg -] Acetylcysteine Po/INH 20% 200 mg NEB RQID #1 vial 11/23/17 [Mucomyst 20 Oral / INH Use Only*] Miscellaneous Medical Supply 1 each SQ ASDIR #1 kit 11/23/17 [Glucometer Device] Miscellaneous Medical Supply 1 each SQ ASDIR #1 box 11/23/17 [Glucometer Test Strips #100] Miscellaneous Medical Supply 1 each MC ASDIR #100 misc 11/23/17 [Outpatient Order] Montelukast Na [Singulair -] 10 mg PO HS #1 tablet 11/23/17 Tiotropium Homer [Spiriva] 1 puff IH DAILY 30 Days #1 cap 11/23/17 Cholecalciferol (Vitamin D3) 50,000 unit PO WEEKLY 01/31/18 [D3-50] Metformin HCl [Metformin HCl ER] 500 mg PO BID 01/31/18 [employer]-3/Dha/Epa/Fish Oil [[employer] 3 2 each PO DAILY 01/31/18 500 Softgel] predniSONE [Deltasone -] See Taper PO DAILY #30 tablet 02/01/18 REVIEW OF SYSTEMS per hpi PHYSICAL EXAMINATION Vital Signs - 24 hr 05/09/18 05/09/18 16:10 21:16 Temperature 98.0 F Pulse Rate 84 88 Respiratory 16 16 Rate Blood Pressure 132/91 O2 Sat by Pulse 95 95 Oximetry (%) GENERAL:AOX3 mild distress, talking in full sentences with some mild wheezes. obese HEAD: NCAT EYES: Pupils equal, round and reactive to light, extraocular movements intact, sclera anicteric, conjunctiva clear. No lid lag. EARS, NOSE, THROAT: Ears normal, nares patent, oropharynx clear without exudates. MMM NECK: Normal range of motion, supple without lymphadenopathy, JVD, or masses. LUNGS: wheezing b/l HEART: RRR, normal S1 and S2 without murmur, rub or gallop. ABDOMEN: Soft, NTND, normoactive bowel sounds, no guarding, no rebound, no masses. MUSCULOSKELETAL: Normal range of motion at all joints. No bony deformities or tenderness. UPPER EXTREMITIES: 2+ pulses, warm, well-perfused. No cyanosis. No clubbing. No peripheral edema. LOWER EXTREMITIES: 2+ pulses, warm, well-perfused. No calf tenderness. LLE peripheral edema, ttp. RLE ttp NEUROLOGICAL: Cranial nerves II-XII intact. Normal speech. PSYCHIATRIC: Cooperative. Good eye contact. Appropriate mood and affect. SKIN: Warm, dry. TTP 1-2cm brown raised papules w/ brown head on R calf and under armpits and on LUQ Laboratory Results - last 24 hr 05/09/18 05/09/18 05/09/18 16:22 16:22 17:21 WBC 13.7 H RBC 4.82 Hgb 10.4 L Hct 33.4 MCV 69.3 L MCH 21.7 L MCHC 31.3 L RDW 19.2 H Plt Count 411 MPV 7.1 L D Absolute Neuts (auto) 10.6 H Neutrophils % 77.2 Lymphocytes % 15.9 Monocytes % 5.8 Eosinophils % 0.9 D Basophils % 0.2 Nucleated RBC % 0 Hypochromia 2+ Platelet Estimate Increased Platelet Comment No clumping noted Polychromasia 1+ Anisocytosis 1+ Microcytosis 1+ Ovalocytes 1+ Sodium 139 Potassium 3.8 Chloride 104 Carbon Dioxide 26 Anion Gap 9 BUN 7 Creatinine 0.8 Creat Clearance w eGFR > 60 Random Glucose 119 H Calcium 8.4 L Total Bilirubin 0.3 AST 12 L ALT 17 Alkaline Phosphatase 72 Total Protein 6.9 Albumin 3.1 L Beta HCG, Quant < 1.0 Urine Color Urine Appearance Urine pH Ur Specific [place] Urine Protein Urine Glucose (UA) Urine Ketones Urine Blood Urine Nitrite Urine Bilirubin Urine Urobilinogen Ur Leukocyte Esterase Urine WBC (Auto) Urine RBC (Auto) Ur Epithelial Cells Urine Bacteria Urine Mucus Urine Yeast 05/09/18 20:31 WBC RBC Hgb Hct MCV MCH MCHC RDW Plt Count MPV Absolute Neuts (auto) Neutrophils % Lymphocytes % Monocytes % Eosinophils % Basophils % Nucleated RBC % Hypochromia Platelet Estimate Platelet Comment Polychromasia Anisocytosis Microcytosis Ovalocytes Sodium Potassium Chloride Carbon Dioxide Anion Gap BUN Creatinine Creat Clearance w eGFR Random Glucose Calcium Total Bilirubin AST ALT Alkaline Phosphatase Total Protein Albumin Beta HCG, Quant Urine Color Yellow Urine Appearance Cloudy Urine pH 6.0 Ur Specific [place] 1.015 Urine Protein Negative Urine Glucose (UA) Negative Urine Ketones Negative Urine Blood 1+ H Urine Nitrite Negative Urine Bilirubin Negative Urine Urobilinogen Negative Ur Leukocyte Esterase Trace Urine WBC (Auto) 4 Urine RBC (Auto) 1 Ur Epithelial Cells Moderate Urine Bacteria Rare Urine Mucus Rare Urine Yeast Few ASSESSMENT/PLAN: 47 y/o F with PMHx of recurrent asthma exacerbations and hospitalizations, ( never intubated), DM, HTN, morbid obesity, PUMA w/ hx noncompliance CPAP, HIV ( on genvoya), anemia and chronic epigastric pain, p/w worsening SOB and wheezing x4d despite home rescue inhaler and nebulizer therapy, and w/ associated w/ greenish non bloody sputum. # Acute Asthma Exacerbation - Peak Flow Daily - Duoneb Q6H -albuterol q4h prn -solumedrol 60 IV q6h -Continue home medications - Pulmonology consult - WBC elevated 2/2 steroids/infection? afebrile, not septic appearing. CXR no gross focal consolidations - Trend WBC -f/u RSV, Flu -O2 PRN #DM -BGM q4h -ISS -hold PO meds -Last A1c 6.6 #HIV -Resume Genvoya -last known CD4 Count 889 in May 2017 -ID consult # PUMA -Pt not using CPAP machine due to discomfort - Counseled pt on importance of machine use -CPAP at night #Morbid Obesity - BMI 60 Referred to bariatric in the past encourage her to F/U and weight loss #HTN Not on home meds monitor BP FEN PO hydration replete prn Diabetic Diet DVT ppx: Lovenox 40 sq qd Full Code Dispo: obs Visit type - Emergency Visit Emergency Visit: Yes ED Registration Date: 05/09/18 Care time: The patient presented to the Emergency Department on the above date and was hospitalized for further evaluation of their emergent condition. - New Patient This patient is new to me today: Yes Date on this admission: 05/10/18 - Critical Care Critical Care patient: No <AvelinoBobby - Last Filed: 05/20/18 20:28> Seen and examined;agree with all the above aside form as edited by me in my own note. Thank you. Was present for all vital parts of encounter; plan discussed with me. Agree with above as documented by the resident.
[2018-05-09] MEDS: ENOXAPARIN NA (PORCINE) 40 MG/0.4 ML DISP.SYRIN SQ SCH (23:02)
[2018-05-09 23:21] LABS: ARTERIAL BLD GAS O2 SATURATION 96.5 % (90-98.9); ARTERIAL BLOOD GAS PCO2 40.2 mmHg (35-45); ARTERIAL BLOOD GAS PO2 94.2 mmHg (80-100); ARTERIAL BLOOD GAS pH 7.36 (7.35-7.45)
[2018-05-09 23:22] LABS: ARTERIAL BLOOD GAS BASE EXCESS -2.7 meq/l (-2-2)
[2018-05-09 23:23] LABS: ALLENS TEST POSITIVE
[2018-05-09 23:25] VITALS: BMI 67.6
[2018-05-10] MEDS: methylPREDNISolone NA SUCC 40 MG/1 ML VIAL IVPUSH SCH ×4 (03:01→21:47)
[2018-05-10] MEDS ORDERED: INSULIN (NOVOLOG) ASPART 100 UNITS/ML 10ML VIAL ONE ×3 (05:57→15:07)
[2018-05-10] MEDS: INSULIN SLIDING SCALE (NOVOLOG) 1 VIAL SQ SCH ×3 (05:59→15:50)
[2018-05-10] MEDS ORDERED: ALBUTEROL SO4 2.5/IPRATROPIUM 0.5 INH SOL 3 ML VIAL.NEB. NEB SCH (08:00)
[2018-05-10 08:11] LABS: ALBUMIN 3.3 g/dl (3.4-5.0); ALK PHOS 81 U/L (45-117); ANION GAP 11 MMOL/L (8-16); BILIRUBIN,TOTAL 0.3 mg/dL (0.2-1); BLOOD UREA NITROGEN 10 mg/dL (7-18); CALCIUM 8.7 mg/dL (8.5-10.1); CHLORIDE 103 mmol/L (98-107); CO2 23 mmol/L (21-32); CREATININE 0.9 mg/dL (0.55-1.3); GLUCOSE,RANDOM 208 mg/dL (74-106); MAGNESIUM 2.2 mg/dL (1.8-2.4); PHOSPHOROUS 2.6 mg/dL (2.5-4.9); POTASSIUM 4.3 mmol/L (3.5-5.1); SGOT/AST 6 U/L (15-37); SGPT/ALT 18 U/L (13-61); SODIUM 136 mmol/L (136-145); TOT PROT 7.4 g/dl (6.4-8.2)
[2018-05-10 08:42] LABS: BASO % 0.1 % (0-2.0); HEMATOCRIT 34.3 % (32.4-45.2); HEMOGLOBIN 10.8 GM/dL (10.7-15.3); MCH 21.6 pg (25.7-33.7); MCHC 31.6 g/dl (32.0-36.0); MEAN CELL VOLUME 68.4 fl (80-96); MEAN PLT VOLUME 7.7 fl (7.5-11.1); MONO % 1.6 % (3.8-10.2); NEUT % 89.3 % (42.8-82.8); PLATELET COUNT 443 K/MM3 (134-434); RBC 5.02 M/mm3 (3.60-5.2); RDW 18.5 % (11.6-15.6)
[2018-05-10] MEDS ORDERED: PATIENT'S OWN MEDICATION (NON-FORMULARY) (Elviteg/Cob/Emtri/Tenof Alafen [Genvoya (Non-For PO SCH (10:00)
[2018-05-10] MEDS: OMEGA-3 ACID ETHYL ESTERS (FATTY-ACIDS) 1 GM CAPSULE (FP) PO SCH (10:21)
[2018-05-10] MEDS: BUDESONIDE/FORMETEROL FUMARATE 160/4.5 mcg INHALER IH SCH ×2 (10:21→21:48)
[2018-05-10] MEDS: TIOTROPIUM BROMIDE 2.5 MCG (SPIRIVA) RESPIMAT INHALER IH SCH (10:21)
[2018-05-10] MEDS: ALBUTEROL SO4 0.083% IH SOL 2.5 MG/3 ML VIAL.NEB. NEB SCH ×3 (11:03→20:31)
--- NOTE | 2018-05-10 11:55 | EKG ---
Test Reason : Blood Pressure : / mmHG Vent. Rate : 102 BPM Atrial Rate : 102 BPM P-R Int : 150 ms QRS Dur : 108 ms QT Int : 356 ms P-R-T Axes : 066 041 -06 degrees QTc Int : 463 ms SINUS TACHYCARDIA OTHERWISE NORMAL ECG WHEN COMPARED WITH ECG OF 31-JAN-2018 01:09, NO SIGNIFICANT CHANGE WAS FOUND Confirmed by CLARA BOX MD ([id number]) on 05/10/2018 11:55:27 AM Referred By: Confirmed By:CLARA BOX MD
--- NOTE | 2018-05-10 15:57 | PN ---
Progress Note (short form) - Note Progress Note: PULMONARY CONSULTATION DICTATED 05/10/18 IMP CHRONIC PERSISTENT ASTHMA WITH ACUTE EXACERBATION OSAS DM HTN HIV MORBID OBESITY PLAN IV STEROIDS INHALED BRONCHODILATORS O2 MONITOR PEAK FLOW COMPLIANCE WITH CPAP PFTS OUTPATIENT IGE LEVEL OUTPATIENT DVT PROPHYLAXIS WT REDUCTION CONSIDER BARIATRIC SURGERY EVALUATION DR GREENWOOD Problem List - Problems (1) Asthma exacerbation Code(s): J45.901 - UNSPECIFIED ASTHMA WITH (ACUTE) EXACERBATION Qualifiers: Asthma severity: moderate Asthma persistence: unspecified Qualified Code( s): J45.901 - Unspecified asthma with (acute) exacerbation (2) Anemia Code(s): D64.9 - ANEMIA, UNSPECIFIED (3) HIV (human immunodeficiency virus infection) Code(s): Z21 - ASYMPTOMATIC HUMAN IMMUNODEFICIENCY VIRUS INFECTION STATUS (4) Obesity Code(s): E66.9 - OBESITY, UNSPECIFIED Qualifiers: Obesity type: unspecified obesity type Obesity classification: adult class 3 (BMI >= 40) Serious obesity comorbidity presence: unspecified whether serious comorbidity present Body mass index: BMI 60.0-69.9 Qualified Code(s) : E66.9 - Obesity, unspecified; Z68.44 - Body mass index (BMI) 60.0-69.9, adult (5) Sleep apnea, obstructive Code(s): G47.33 - OBSTRUCTIVE SLEEP APNEA (ADULT) (PEDIATRIC)
--- NOTE | 2018-05-10 16:26 | CONS ---
DATE OF CONSULTATION: 05/10/2018 PULMONARY CONSULTATION REFERRING PHYSICIAN: Farshad Busby M.D. HISTORY OF PRESENT ILLNESS: The patient is a 47-year-old female known to me from previous hospitalization and past medical history of chronic persistent asthma, multiple hospitalizations, never been intubated, obstructive sleep apnea not compliant with CPAP, morbid obesity, diabetes, hypertension, HIV, anemia, chronic epigastric pain, nonsmoker, admitted to [facility] with complaint of 4-5 day history of increasing shortness of breath, dyspnea on exertion, cough and wheezing. Patient states, denies any recent URI symptoms. She states that she has felt the above symptoms and using inhaler without any improvement. Apparently for the past month or so she states that her asthma symptoms have been worsening, but she did not seek medical followup secondary to insurance issues. Over the past 4 days, her symptoms worsened, at which time she presented to the emergency room. On admission, she was started on inhaled bronchodilators and steroids with some clinical improvement. PAST MEDICAL HISTORY: Again includes obstructive sleep apnea, noncompliant with CPAP, chronic persistent asthma, multiple hospitalizations, diabetes, hypertension, morbid obesity, HIV, anemia, chronic epigastric pain. REVIEW OF SYSTEMS: Positive shortness of breath, positive cough, positive wheezing, no chest pain, no palpitations, no nausea, no vomiting, no abdominal pain, no lower extremity edema. CURRENT MEDICATIONS: Include , Symbicort, Solu-Medrol 60 q.6, Lovenox, Lovaza, Spiriva, albuterol, NovoLog, Singulair, and Drisdol. PHYSICAL EXAMINATION: GENERAL: The patient is an obese female, awake, alert, mildly dyspneic but in no acute distress. She is currently afebrile. VITAL SIGNS: Blood pressure 142/77, respiratory rate 20, O2 saturation 96% on 2 L nasal cannula. HEENT: Normocephalic, atraumatic. NECK: Supple. HEART: Regular S1, S2. CHEST: Bilateral wheezes throughout. ABDOMEN: Soft, bowel sounds positive. EXTREMITIES: No cyanosis. Right lower extremity edema. LABORATORY: WBC 16, hemoglobin 10.8, hematocrit 34.3, platelet count 443,000. Blood gas: pH 7.36, pCO2 of 40, pO2 of 94, bicarb of 22, and a saturation of 96.5 on unknown quantity of oxygen. BUN 10, creatinine 0.9. Chest x-ray: Mild increased markings bilaterally. IMPRESSION: 1. Chronic persistent asthma with acute exacerbation. 2. History of obstructive sleep apnea, noncompliant with CPAP. 3. Diabetes. 4. Hypertension. 5. Morbid obesity. 6. History of human immunodeficiency virus. PLAN: IV steroids. Inhaled bronchodilators. Supplemental O2. Monitor peak flow. outpatient. Also serum IGE level as outpatient. Also stress compliance with CPAP. KUMAR GREENWOOD M.D. [id number]
--- NOTE | 2018-05-10 17:55 | PN ---
Physical Exam: SUBJECTIVE: Patient seen and examined at bedside this morning. Patient is a 47 year old female with past medical history of recurrent hospitalizations for asthma exacerbations, DM, HTN, Morbid obesity, PUMA not compliant with CPAP use, HIV (on Genvoya), Anemia and chronic epigastric pain, presented with worsening SOB and wheezing for 4 days, accompanied with productive cough of greenish- yellowish sputum. Patient reported she has been using her inhalers and nebulizers but SOB has not been improving, with cough worsening. Patient denies fever, chills, headache, dizziness, chest pain, palpitations, abdominal pain, diarrhea, urinary symptoms. OBJECTIVE: Vital Signs Temperature 98.1 F 05/10/18 18:00 Pulse Rate 98 H 05/10/18 18:00 Respiratory Rate 21 H 05/10/18 18:00 Blood Pressure 140/59 L 05/10/18 18:00 O2 Sat by Pulse Oximetry (%) 94 L 05/10/18 20:34 GENERAL: The patient is awake, alert, and fully oriented, in no acute distress. HEAD: Normal with no signs of trauma. EYES: PERRLA, EOMI, sclera anicteric, conjunctiva clear. ENT: Ears normal, nares patent, oropharynx clear without exudates, moist mucous membranes. NECK: Soft, supple neck. LUNGS: +wheezing bilaterally, decreased breath sounds bilateral bases HEART: Regular rate and rhythm, S1, S2 without murmur, rub or gallop. ABDOMEN: Soft, obese, nontender, nondistended, normoactive bowel sounds. EXTREMITIES: 2+ pulses, warm, well-perfused, no edema. Laboratory Results - last 24 hr 05/09/18 05/09/18 05/09/18 16:22 17:21 20:31 WBC RBC Hgb Hct MCV MCH MCHC RDW Plt Count MPV Absolute Neuts (auto) Neutrophils % Lymphocytes % Monocytes % Eosinophils % Basophils % Nucleated RBC % Hypochromia 2+ Platelet Estimate Increased Platelet Comment No clumping noted Polychromasia 1+ Anisocytosis 1+ Microcytosis 1+ Ovalocytes 1+ Anticoagulation Therapy Puncture Site ABG pH ABG pCO2 at Pt Temp ABG pO2 at Pt Temp ABG HCO3 ABG O2 Sat (Measured) ABG O2 Content ABG Base Excess Rik Test Carboxyhemoglobin Methemoglobin O2 Delivery Device Oxygen Flow Rate Vent Mode Vent Rate Mechanical Rate Pressure Support Vent Sodium Potassium Chloride Carbon Dioxide Anion Gap BUN Creatinine Creat Clearance w eGFR POC Glucometer Random Glucose Calcium Phosphorus Magnesium Total Bilirubin AST ALT Alkaline Phosphatase Total Protein Albumin Beta HCG, Quant < 1.0 Urine Color Yellow Urine Appearance Cloudy Urine pH 6.0 Ur Specific [place] 1.015 Urine Protein Negative Urine Glucose (UA) Negative Urine Ketones Negative Urine Blood 1+ H Urine Nitrite Negative Urine Bilirubin Negative Urine Urobilinogen Negative Ur Leukocyte Esterase Trace Urine WBC (Auto) 4 Urine RBC (Auto) 1 Ur Epithelial Cells Moderate Urine Bacteria Rare Urine Mucus Rare Urine Yeast Few Influenza A (Rapid) Influenza B (Rapid) 05/09/18 05/09/18 05/10/18 21:27 23:10 05:53 WBC RBC Hgb Hct MCV MCH MCHC RDW Plt Count MPV Absolute Neuts (auto) Neutrophils % Lymphocytes % Monocytes % Eosinophils % Basophils % Nucleated RBC % Hypochromia Platelet Estimate Platelet Comment Polychromasia Anisocytosis Microcytosis Ovalocytes Anticoagulation Therapy No Result Required. Puncture Site Right radial ABG pH 7.36 ABG pCO2 at Pt Temp 40.2 ABG pO2 at Pt Temp 94.2 ABG HCO3 22.0 ABG O2 Sat (Measured) 96.5 ABG O2 Content 14.0 L ABG Base Excess -2.7 L Rik Test Positive Carboxyhemoglobin 1.0 Methemoglobin 0.8 O2 Delivery Device No Result Required. Oxygen Flow Rate No Result Required. Vent Mode No Result Required. Vent Rate No Result Required. Mechanical Rate No Result Required. Pressure Support Vent No Result Required. Sodium Potassium Chloride Carbon Dioxide Anion Gap BUN Creatinine Creat Clearance w eGFR POC Glucometer 229 Random Glucose Calcium Phosphorus Magnesium Total Bilirubin AST ALT Alkaline Phosphatase Total Protein Albumin Beta HCG, Quant Urine Color Urine Appearance Urine pH Ur Specific [place] Urine Protein Urine Glucose (UA) Urine Ketones Urine Blood Urine Nitrite Urine Bilirubin Urine Urobilinogen Ur Leukocyte Esterase Urine WBC (Auto) Urine RBC (Auto) Ur Epithelial Cells Urine Bacteria Urine Mucus Urine Yeast Influenza A (Rapid) Negative Influenza B (Rapid) Negative 05/10/18 05/10/18 05/10/18 06:40 06:40 10:33 WBC 16.0 H RBC 5.02 Hgb 10.8 Hct 34.3 MCV 68.4 L MCH 21.6 L MCHC 31.6 L RDW 18.5 H Plt Count 443 H MPV 7.7 Absolute Neuts (auto) 14.3 H Neutrophils % 89.3 H Lymphocytes % 9.0 D Monocytes % 1.6 L Eosinophils % 0.0 D Basophils % 0.1 Nucleated RBC % 0 Hypochromia Platelet Estimate Platelet Comment Polychromasia Anisocytosis Microcytosis Ovalocytes Anticoagulation Therapy Puncture Site ABG pH ABG pCO2 at Pt Temp ABG pO2 at Pt Temp ABG HCO3 ABG O2 Sat (Measured) ABG O2 Content ABG Base Excess Rik Test Carboxyhemoglobin Methemoglobin O2 Delivery Device Oxygen Flow Rate Vent Mode Vent Rate Mechanical Rate Pressure Support Vent Sodium 136 Potassium 4.3 Chloride 103 Carbon Dioxide 23 Anion Gap 11 BUN 10 Creatinine 0.9 Creat Clearance w eGFR > 60 POC Glucometer 217 Random Glucose 208 H Calcium 8.7 Phosphorus 2.6 Magnesium 2.2 Total Bilirubin 0.3 AST 6 L ALT 18 Alkaline Phosphatase 81 Total Protein 7.4 Albumin 3.3 L Beta HCG, Quant Urine Color Urine Appearance Urine pH Ur Specific [place] Urine Protein Urine Glucose (UA) Urine Ketones Urine Blood Urine Nitrite Urine Bilirubin Urine Urobilinogen Ur Leukocyte Esterase Urine WBC (Auto) Urine RBC (Auto) Ur Epithelial Cells Urine Bacteria Urine Mucus Urine Yeast Influenza A (Rapid) Influenza B (Rapid) 05/10/18 15:46 WBC RBC Hgb Hct MCV MCH MCHC RDW Plt Count MPV Absolute Neuts (auto) Neutrophils % Lymphocytes % Monocytes % Eosinophils % Basophils % Nucleated RBC % Hypochromia Platelet Estimate Platelet Comment Polychromasia Anisocytosis Microcytosis Ovalocytes Anticoagulation Therapy Puncture Site ABG pH ABG pCO2 at Pt Temp ABG pO2 at Pt Temp ABG HCO3 ABG O2 Sat (Measured) ABG O2 Content ABG Base Excess Rik Test Carboxyhemoglobin Methemoglobin O2 Delivery Device Oxygen Flow Rate Vent Mode Vent Rate Mechanical Rate Pressure Support Vent Sodium Potassium Chloride Carbon Dioxide Anion Gap BUN Creatinine Creat Clearance w eGFR POC Glucometer 218 Random Glucose Calcium Phosphorus Magnesium Total Bilirubin AST ALT Alkaline Phosphatase Total Protein Albumin Beta HCG, Quant Urine Color Urine Appearance Urine pH Ur Specific [place] Urine Protein Urine Glucose (UA) Urine Ketones Urine Blood Urine Nitrite Urine Bilirubin Urine Urobilinogen Ur Leukocyte Esterase Urine WBC (Auto) Urine RBC (Auto) Ur Epithelial Cells Urine Bacteria Urine Mucus Urine Yeast Influenza A (Rapid) Influenza B (Rapid) Active Medications Generic Name Dose Route Start Last Admin Trade Name Freq PRN Reason Stop Dose Admin Albuterol Sulfate 1 amp 05/09/18 21:55 05/10/18 05:14 Ventolin 0.083% Nebulizer Soln - NEB 1 amp Q4H PRN Administration SHORT OF BREATH/WHEEZING Albuterol Sulfate 1 amp 05/10/18 12:00 05/10/18 16:10 Ventolin 0.083% Nebulizer Soln - NEB 1 amp RQID KAREN Administration Budesonide/Formoterol Fumarate 2 puff 05/10/18 10:00 05/10/18 10:21 Symbicort 160/4.5mcg - IH 2 inhaler BID KAREN Administration Enoxaparin Sodium 40 mg 05/09/18 22:15 05/09/18 23:02 Lovenox - SQ 40 mg HS KAREN Administration Ergocalciferol 50,000 unit 05/12/18 10:00 Drisdol - PO Roe@1000 KAREN Insulin Aspart 1 vial 05/10/18 07:00 05/10/18 15:50 Novolog Vial Sliding Scale - SQ 4 units ACHS KAREN Administration Protocol Methylprednisolone Sodium Succinate 60 mg 05/10/18 03:00 05/10/18 15:40 Solu-Medrol - IVPUSH 60 mg Q6H-IV KAREN Administration Montelukast Sodium 10 mg 05/10/18 22:00 Singulair - PO HS KAREN Non-Formulary Medication 1 tab 05/10/18 10:00 Elviteg/Cob/Emtri/Tenof Alafen [Genvoya (Non-Formulary)] PO DAILY KAREN Exuej-2-Vygb Ethyl Esters 2 gm 05/10/18 10:00 05/10/18 10:21 Lovaza - PO 2 gm DAILY KAREN Administration Tiotropium [place] 2 puff 05/10/18 10:00 05/10/18 10:21 Spiriva Respimat IH 2 puff DAILY KAREN Administration ASSESSMENT/PLAN: Patient is a 47 year old female with past medical history of recurrent hospitalizations for asthma exacerbations, DM, HTN, Morbid obesity, PUMA not compliant with CPAP use, HIV (on Genvoya), Anemia and chronic epigastric pain, presented with worsening SOB and wheezing for 4 days, accompanied with productive cough of greenish-yellowish sputum. #Acute asthma exacerbation -CXR - no gross focal consolidation -Leukocytosis likely 2/2 chronic steroid use/obesity, less likely infection -Flu negative -will continue to monitor -Baseline peak flow 250 -Daily peak flow -Pulmonology (Dr. Martin) consulted. Recommendations appreciated. -Albuterol neb RQID and q4h PRN -Symbicort BID -Singulair 10mg PO HS -Spiriva daily -Solu-medrol 60mg q6h -IgE level and PFTs as outpatient. #DM -BGM TIDAC -Insulin sliding scale implemented -Hold home Metformin #Hypertension -Not on any home medications -Will continue to monitor #PUMA -CPAP at bedtime #HIV -Continue Genvoya -CD counts pending -last known CD4 count 889 in May 2017 #Morbid obesity -Referred to bariatric surgery -Encourage follow-up and weight loss #FEN -Not on any standing fluids -Electrolytes wnl, routine bmp monitoring -Diabetic/Sodium controlled diet #Prophylaxis -Heparin 5000units sq tid #Disposition -full code -med-surg Visit type - Emergency Visit Emergency Visit: Yes ED Registration Date: 05/09/18 Care time: The patient presented to the Emergency Department on the above date and was hospitalized for further evaluation of their emergent condition. - New Patient This patient is new to me today: Yes Date on this admission: 05/10/18 - Critical Care Critical Care patient: No
--- NOTE | 2018-05-10 20:05 | PN ---
Teaching Attending Note Name of Resident: Yessica Gonzalez ATTENDING PHYSICIAN STATEMENT I saw and evaluated the patient. I reviewed the resident's note and discussed the case with the resident. I agree with the resident's findings and plan as documented. SUBJECTIVE: no fever or chills. SOB is slightly better OBJECTIVE: NAD CV: RRR, no MRG Lungs:wheezing, decreased breath sounds at bases Ext: no edema. ASSESSMENT AND PLAN: 46 y/o lady with h/o Asthma, HIV, anemia who presented with SOB and wheezing , Abd pain N/V and rectal bleed . She was found to have Asthma exacerbation 1- Asthma exacerbation: - steroids. - NEbs , symbicort, signular - peak flow 2- DM : hold metformin. SSI while here 3- HIV : cont Genvoya HLOC
[2018-05-10] MEDS ORDERED: PT OWN MED DRAWER 7, Y5N ONE ×2 (21:43→21:53)
[2018-05-10] MEDS: MONTELUKAST NA 10 MG TABLET PO SCH (21:47)
[2018-05-10] MEDS: ENOXAPARIN NA (PORCINE) 40 MG/0.4 ML DISP.SYRIN SQ SCH (21:47)
[2018-05-10] MEDS: GENVOYA PO SCH (21:54)
[2018-05-10] MEDS ORDERED: BUDESONIDE/FORMETEROL FUMARATE 160/4.5 mcg INHALER IH SCH (22:00)
[2018-05-11] MEDS: methylPREDNISolone NA SUCC 40 MG/1 ML VIAL IVPUSH SCH ×4 (02:29→21:34)
[2018-05-11] MEDS: INSULIN SLIDING SCALE (NOVOLOG) 1 VIAL SQ SCH ×4 (06:03→21:47)
[2018-05-11] MEDS: ALBUTEROL SO4 0.083% IH SOL 2.5 MG/3 ML VIAL.NEB. NEB SCH ×4 (07:28→21:10)
[2018-05-11 08:37] LABS: BASO % 0.5 % (0-2.0); HEMOGLOBIN 10.7 GM/dL (10.7-15.3); LYMPH % 8.6 % (8-40); MCH 21.7 pg (25.7-33.7); MCHC 31.5 g/dl (32.0-36.0); MEAN CELL VOLUME 68.9 fl (80-96); MEAN PLT VOLUME 7.2 fl (7.5-11.1); MONO % 4.6 % (3.8-10.2); NEUT % 86.3 % (42.8-82.8); PLATELET COUNT 461 K/MM3 (134-434); RBC 4.93 M/mm3 (3.60-5.2); RDW 18.8 % (11.6-15.6); WHITE BLOOD COUNT 20.7 K/mm3 (4.0-10.0)
[2018-05-11 09:21] LABS: ANION GAP 10 MMOL/L (8-16); BLOOD UREA NITROGEN 15 mg/dL (7-18); CALCIUM 9.6 mg/dL (8.5-10.1); CHLORIDE 102 mmol/L (98-107); CO2 23 mmol/L (21-32); CREATININE 0.8 mg/dL (0.55-1.3); GLUCOSE,RANDOM 204 mg/dL (74-106); MAGNESIUM 2.6 mg/dL (1.8-2.4); PHOSPHOROUS 3.2 mg/dL (2.5-4.9); POTASSIUM 4.7 mmol/L (3.5-5.1); SODIUM 134 mmol/L (136-145)
[2018-05-11] MEDS: GENVOYA PO SCH (09:34)
[2018-05-11] MEDS: OMEGA-3 ACID ETHYL ESTERS (FATTY-ACIDS) 1 GM CAPSULE (FP) PO SCH (09:34)
[2018-05-11] MEDS: TIOTROPIUM BROMIDE 2.5 MCG (SPIRIVA) RESPIMAT INHALER IH SCH (09:34)
[2018-05-11] MEDS: BUDESONIDE/FORMETEROL FUMARATE 160/4.5 mcg INHALER IH SCH ×2 (09:34→22:53)
[2018-05-11] MEDS ORDERED: PATIENT'S OWN MEDICATION (NON-FORMULARY) (Tiotropium Bromide [Spiriva] 1 PUFF) IH SCH (10:00)
[2018-05-11 10:43] LABS: ANISOCYTOSIS 1+; MACROCYTOSIS 0; PLATELET ESTIMATE INCREASED
[2018-05-11] MEDS ORDERED: INSULIN (NOVOLOG) ASPART 100 UNITS/ML 10ML VIAL ONE ×2 (10:56→16:14)
--- NOTE | 2018-05-11 15:32 | PN ---
Physical Exam: SUBJECTIVE: Patient seen and examined at bedside this morning. Patient finishing nebs treatment. She is sitting comfortably in the chair. Patient saturating >95% at 1-2L NC. OBJECTIVE: Vital Signs Period Temp Pulse Resp BP Sys/So Pulse Ox Last 24 Hr 98 F-98.5 F 85-98 16-22 136-143/59-92 94-96 GENERAL: The patient is awake, alert, and fully oriented, in no acute distress. HEAD: Normal with no signs of trauma. EYES: PERRLA, EOMI, sclera anicteric, conjunctiva clear. ENT: Ears normal, nares patent, oropharynx clear without exudates, moist mucous membranes. NECK: Soft, supple neck. LUNGS: +scattered wheezes bilaterally, improved. Good air entry. HEART: Regular rate and rhythm, S1, S2 without murmur, rub or gallop. ABDOMEN: Soft, obese, nontender, nondistended, normoactive bowel sounds. EXTREMITIES: 2+ pulses, warm, well-perfused, no edema. Laboratory Results - last 24 hr 05/09/18 05/10/18 05/11/18 10:17 15:46 06:01 WBC 17.6 H RBC Hgb Hct MCV MCH MCHC RDW Plt Count MPV Absolute Neuts (auto) Absolute Lymphs (auto) 1.6 Neutrophils % Neutrophils % (Manual) Band Neutrophils % Lymphocytes % Lymphocytes % (Manual) Monocytes % Monocytes % (Manual) Eosinophils % Eosinophils % (Manual) Basophils % Basophils % (Manual) Myelocytes % (Man) Promyelocytes % (Man) Blast Cells % (Manual) Nucleated RBC % Lymphocytes 9 Metamyelocytes Nucleated RBCs TNP Hypochromia Platelet Estimate Polychromasia Poikilocytosis Anisocytosis Microcytosis Macrocytosis Sodium Potassium Chloride Carbon Dioxide Anion Gap BUN Creatinine Creat Clearance w eGFR POC Glucometer 218 231 Random Glucose Calcium Phosphorus Magnesium Absolute CD3 Count 936 % CD3+ Lymphocytes 58.5 Absolute CD4 [place] 413 % CD4+ Lymphocyte 25.8 L CD4/CD8 Ratio 0.77 L % CD8+ Lymphocyte 33.6 Absolute CD8 Count 538 05/11/18 05/11/18 05/11/18 07:45 07:45 10:34 WBC 20.7 H RBC 4.93 Hgb 10.7 Hct 34.0 MCV 68.9 L MCH 21.7 L MCHC 31.5 L RDW 18.8 H Plt Count 461 H MPV 7.2 L Absolute Neuts (auto) 17.9 H Absolute Lymphs (auto) Neutrophils % 86.3 H Neutrophils % (Manual) 80.2 Band Neutrophils % 0.0 Lymphocytes % 8.6 Lymphocytes % (Manual) 16.7 D Monocytes % 4.6 D Monocytes % (Manual) 2 L Eosinophils % 0.0 Eosinophils % (Manual) 0.0 Basophils % 0.5 D Basophils % (Manual) 0.0 Myelocytes % (Man) 0 Promyelocytes % (Man) 0 Blast Cells % (Manual) 0 Nucleated RBC % 0 Lymphocytes Metamyelocytes 1 D Nucleated RBCs Hypochromia 1+ Platelet Estimate Increased Polychromasia 1+ Poikilocytosis 0 Anisocytosis 1+ Microcytosis 1+ Macrocytosis 0 Sodium 134 L Potassium 4.7 Chloride 102 Carbon Dioxide 23 Anion Gap 10 BUN 15 Creatinine 0.8 Creat Clearance w eGFR > 60 POC Glucometer 285 Random Glucose 204 H Calcium 9.6 Phosphorus 3.2 Magnesium 2.6 H Absolute CD3 Count % CD3+ Lymphocytes Absolute CD4 [place] % CD4+ Lymphocyte CD4/CD8 Ratio % CD8+ Lymphocyte Absolute CD8 Count Active Medications Generic Name Dose Route Start Last Admin Trade Name Freq PRN Reason Stop Dose Admin Albuterol Sulfate 1 amp 05/09/18 21:55 05/10/18 05:14 Ventolin 0.083% Nebulizer Soln - NEB 1 amp Q4H PRN Administration SHORT OF BREATH/WHEEZING Albuterol Sulfate 1 amp 05/10/18 12:00 05/11/18 11:40 Ventolin 0.083% Nebulizer Soln - NEB 1 amp RQID KAREN Administration Budesonide/Formoterol Fumarate 2 puff 05/10/18 10:00 05/11/18 09:34 Symbicort 160/4.5mcg - IH 2 inhaler BID KAREN Administration Enoxaparin Sodium 40 mg 05/09/18 22:15 05/10/18 21:47 Lovenox - SQ 40 mg HS KAREN Administration Ergocalciferol 50,000 unit 05/12/18 10:00 Drisdol - PO Roe@1000 KAREN Insulin Aspart 1 vial 05/11/18 16:30 Novolog Vial Sliding Scale - SQ ACHS [facility] Protocol Methylprednisolone Sodium Succinate 60 mg 05/10/18 03:00 05/11/18 14:46 Solu-Medrol - IVPUSH 60 mg Q6H-IV KAREN Administration Montelukast Sodium 10 mg 05/10/18 22:00 05/10/18 21:47 Singulair - PO 10 mg HS KAREN Administration (Genvoya) Patient's 1 each 05/11/18 10:00 05/11/18 09:34 Own Medication PO 1 each Genvoya (Non- DAILY KAREN Administration Formulary) Ugjwz-6-Fyvf Ethyl Esters 2 gm 05/10/18 10:00 05/11/18 09:34 Lovaza - PO 2 gm DAILY KAREN Administration Tiotropium [place] 2 puff 05/10/18 10:00 05/11/18 09:34 Spiriva Respimat IH 2 puff DAILY KAREN Administration ASSESSMENT/PLAN: Patient is a 47 year old female with past medical history of recurrent hospitalizations for asthma exacerbations, DM, HTN, Morbid obesity, PUMA not compliant with CPAP use, HIV (on Genvoya), Anemia and chronic epigastric pain, presented with worsening SOB and wheezing for 4 days, accompanied with productive cough of greenish-yellowish sputum. #Acute asthma exacerbation -CXR - no gross focal consolidation -Leukocytosis likely 2/2 chronic steroid use/obesity, less likely infection -Flu negative -will continue to monitor -Baseline peak flow 250 (Estimated peak flow by age 89) -Daily peak flow -Pulmonology (Dr. Martin) consulted. Recommendations appreciated. -Albuterol neb RQID and q4h PRN -Symbicort BID -Singulair 10mg PO HS -Spiriva daily -Solu-medrol 60mg q6h -IgE level and PFTs as outpatient. #DM -BGM ACHS -Insulin sliding scale implemented -Hold home Metformin -Patient has history of elevated lactic acid (baseline 5-6) in 2017 -consider switching Metformin to Januvia once discharged. #Hypertension -Not on any home medications -Will continue to monitor #PUMA -CPAP at bedtime #HIV -Continue Genvoya -CD counts pending -last known CD4 count 889 in May 2017 #Morbid obesity -Referred to bariatric surgery -Encourage follow-up and weight loss #FEN -Not on any standing fluids -Electrolytes wnl, routine bmp monitoring -Diabetic/Sodium controlled diet #Prophylaxis -Heparin 5000units sq tid #Disposition -full code -med-surg Visit type - Emergency Visit Emergency Visit: Yes ED Registration Date: 05/09/18 Care time: The patient presented to the Emergency Department on the above date and was hospitalized for further evaluation of their emergent condition. - New Patient This patient is new to me today: No - Critical Care Critical Care patient: No
--- NOTE | 2018-05-11 16:48 | PN ---
Progress Note, Physician History of Present Illness: PULMONARY ALERT,FEELING BETTER,DYSPNEA IMPROVING - Current Medication List Current Medications: Active Medications Albuterol Sulfate (Ventolin 0.083% Nebulizer Soln -) 1 amp NEB Q4H PRN PRN Reason: SHORT OF BREATH/WHEEZING Last Admin: 05/10/18 05:14 Dose: 1 amp Albuterol Sulfate (Ventolin 0.083% Nebulizer Soln -) 1 amp NEB RQID [facility] Last Admin: 05/11/18 15:53 Dose: 1 amp Budesonide/Formoterol Fumarate (Symbicort 160/4.5mcg -) 2 puff IH BID [facility] Last Admin: 05/11/18 09:34 Dose: 2 inhaler Enoxaparin Sodium (Lovenox -) 40 mg SQ HS [facility] Last Admin: 05/10/18 21:47 Dose: 40 mg Ergocalciferol (Drisdol -) 50,000 unit PO Roe@1000 [facility] Insulin Aspart (Novolog Vial Sliding Scale -) 1 vial SQ ACHS [facility]; Protocol Last Admin: 05/11/18 16:15 Dose: 6 units Methylprednisolone Sodium Succinate (Solu-Medrol -) 60 mg IVPUSH Q6H-IV [facility] Last Admin: 05/11/18 14:46 Dose: 60 mg Montelukast Sodium (Singulair -) 10 mg PO HS [facility] Last Admin: 05/10/18 21:47 Dose: 10 mg (Genvoya) Patient's Own Medication Genvoya (Non- Formulary) 1 each PO DAILY [facility] Last Admin: 05/11/18 09:34 Dose: 1 each Nrrxq-2-Oduy Ethyl Esters (Lovaza -) 2 gm PO DAILY [facility] Last Admin: 05/11/18 09:34 Dose: 2 gm Tiotropium [place] (Spiriva Respimat) 2 puff IH DAILY [facility] Last Admin: 05/11/18 09:34 Dose: 2 puff - Objective Vital Signs: Vital Signs Temperature 98.2 F 05/11/18 08:57 Pulse Rate 94 H 05/11/18 08:57 Respiratory Rate 16 05/11/18 08:57 Blood Pressure 136/79 05/11/18 08:57 O2 Sat by Pulse Oximetry (%) 95 05/11/18 15:52 Constitutional: Yes: Calm, Obese Eyes: Yes: WNL HENT: Yes: WNL Neck: Yes: WNL Cardiovascular: Yes: Regular Rate and Rhythm, S1, S2 Respiratory: Yes: Wheezes (PRATIBHA WHEEZES) Gastrointestinal: Yes: Normal Bowel Sounds, Soft Extremities: Yes: WNL Edema: No Labs: CBC, BMP 05/11/18 07:45 05/11/18 07:45 Problem List - Problems (1) Asthma exacerbation Code(s): J45.901 - UNSPECIFIED ASTHMA WITH (ACUTE) EXACERBATION Qualifiers: Asthma severity: moderate Asthma persistence: unspecified Qualified Code( s): J45.901 - Unspecified asthma with (acute) exacerbation (2) Anemia Code(s): D64.9 - ANEMIA, UNSPECIFIED (3) HIV (human immunodeficiency virus infection) Code(s): Z21 - ASYMPTOMATIC HUMAN IMMUNODEFICIENCY VIRUS INFECTION STATUS (4) Obesity Code(s): E66.9 - OBESITY, UNSPECIFIED Qualifiers: Obesity type: unspecified obesity type Obesity classification: adult class 3 (BMI >= 40) Serious obesity comorbidity presence: unspecified whether serious comorbidity present Body mass index: BMI 60.0-69.9 Qualified Code(s) : E66.01 - Morbid (severe) obesity due to excess calories; Z68.44 - Body mass index (BMI) 60.0-69.9, adult (5) Sleep apnea, obstructive Code(s): G47.33 - OBSTRUCTIVE SLEEP APNEA (ADULT) (PEDIATRIC) Assessment/Plan IMP CHRONIC PERSISTENT ASTHMA WITH ACUTE EXACERBATION SLOWLY IMPROVING OSAS DM HTN HIV MORBID OBESITY PLAN IV STEROIDS SAME DOSE INHALED BRONCHODILATORS O2 MONITOR PEAK FLOW COMPLIANCE WITH CPAP PFTS OUTPATIENT DVT PROPHYLAXIS WT REDUCTION CONSIDER BARIATRIC SURGERY EVALUATION DR [place]EN[place] Problem List - Problems (1) Asthma exacerbation Code(s): J45.901 - UNSPECIFIED ASTHMA WITH (ACUTE) EXACERBATION Qualifiers: Asthma severity: moderate Asthma persistence: unspecified Qualified Code( s): J45.901 - Unspecified asthma with (acute) exacerbation (2) Anemia Code(s): D64.9 - ANEMIA, UNSPECIFIED (3) HIV (human immunodeficiency virus infection) Code(s): Z21 - ASYMPTOMATIC HUMAN IMMUNODEFICIENCY VIRUS INFECTION STATUS (4) Obesity Code(s): E66.9 - OBESITY, UNSPECIFIED Qualifiers: Obesity type: unspecified obesity type Obesity classification: adult class 3 (BMI >= 40) Serious obesity comorbidity presence: unspecified whether serious comorbidity present Body mass index: BMI 60.0-69.9 Qualified Code(s) : E66.9 - Obesity, unspecified; Z68.44 - Body mass index (BMI) 60.0-69.9, adult (5) Sleep apnea, obstructive Code(s): G47.33 - OBSTRUCTIVE SLEEP APNEA (ADULT) (PEDIATRIC)
--- NOTE | 2018-05-11 18:01 | PN ---
Teaching Attending Note Name of Resident: Mendel Gilman ATTENDING PHYSICIAN STATEMENT I saw and evaluated the patient. I reviewed the resident's note and discussed the case with the resident. I agree with the resident's findings and plan as documented. SUBJECTIVE: No fever or chills. No abd pain . but feels like there is something moving in her abd . sexually active with and no protection used. OBJECTIVE: NAD CV: RRR, no MRG Lungs: imporved wheezing, decreased breath sounds at bases. Ext: no edema. ASSESSMENT AND PLAN: 46 y/o lady with h/o Asthma, HIV, anemia who presented with SOB and wheezing , Abd pain N/V and rectal bleed . She was found to have Asthma exacerbation 1- Asthma exacerbation: patinet is making upper respiratory noises. her lung exam actually improved - steroids. - NEbs, symbicort, signular - peak flow 2- DM: hold metformin. SSI while here in 2017 , she had type B lactic acidosis, and was advised not use metformin again . at ri will use januvia 3- HIV : cont Genvoya HLOC
[2018-05-11] MEDS: ENOXAPARIN NA (PORCINE) 40 MG/0.4 ML DISP.SYRIN SQ SCH (21:35)
[2018-05-11] MEDS: MONTELUKAST NA 10 MG TABLET PO SCH (21:35)
[2018-05-12] MEDS: methylPREDNISolone NA SUCC 40 MG/1 ML VIAL IVPUSH SCH ×4 (02:31→21:47)
[2018-05-12] MEDS: INSULIN SLIDING SCALE (NOVOLOG) 1 VIAL SQ SCH ×4 (06:27→21:48)
[2018-05-12] MEDS: ALBUTEROL SO4 0.083% IH SOL 2.5 MG/3 ML VIAL.NEB. NEB SCH ×4 (07:46→20:52)
[2018-05-12] MEDS ORDERED: ACETAMINOPHEN 325 MG TABLET (FP) PO PRN (08:36)
[2018-05-12] MEDS: GENVOYA PO SCH (09:14)
[2018-05-12] MEDS: OMEGA-3 ACID ETHYL ESTERS (FATTY-ACIDS) 1 GM CAPSULE (FP) PO SCH (09:14)
[2018-05-12 09:22] LABS: BASO % 0.6 % (0-2.0); HEMATOCRIT 33.8 % (32.4-45.2); HEMOGLOBIN 10.6 GM/dL (10.7-15.3); LYMPH % 8.3 % (8-40); MCH 21.6 pg (25.7-33.7); MCHC 31.3 g/dl (32.0-36.0); MEAN CELL VOLUME 68.9 fl (80-96); MEAN PLT VOLUME 7.5 fl (7.5-11.1); MONO % 7.5 % (3.8-10.2); NEUT % 83.6 % (42.8-82.8); PLATELET COUNT 449 K/MM3 (134-434); RBC 4.91 M/mm3 (3.60-5.2); WHITE BLOOD COUNT 18.7 K/mm3 (4.0-10.0)
[2018-05-12] MEDS: TIOTROPIUM BROMIDE 2.5 MCG (SPIRIVA) RESPIMAT INHALER IH SCH (09:22)
[2018-05-12] MEDS: BUDESONIDE/FORMETEROL FUMARATE 160/4.5 mcg INHALER IH SCH ×2 (09:22→21:53)
[2018-05-12 09:44] LABS: ANION GAP 8 MMOL/L (8-16); BLOOD UREA NITROGEN 16 mg/dL (7-18); CALCIUM 9.4 mg/dL (8.5-10.1); CHLORIDE 102 mmol/L (98-107); CO2 26 mmol/L (21-32); CREATININE 0.9 mg/dL (0.55-1.3); GLUCOSE,RANDOM 233 mg/dL (74-106); MAGNESIUM 2.5 mg/dL (1.8-2.4); PHOSPHOROUS 3.1 mg/dL (2.5-4.9); POTASSIUM 4.5 mmol/L (3.5-5.1); SODIUM 136 mmol/L (136-145)
[2018-05-12] MEDS ORDERED: ERGOCALCIFEROL (VITAMIN D2) 50,000 UNIT CAPSULE (FP) PO SCH (10:00)
[2018-05-12] MEDS ORDERED: INSULIN (NOVOLOG) ASPART 100 UNITS/ML 10ML VIAL ONE (11:11)
--- NOTE | 2018-05-12 13:04 | PN ---
Progress Note, Physician History of Present Illness: pulmonary alert.still very dyspneic with min exertion,+ congestion - Current Medication List Current Medications: Active Medications Acetaminophen (Tylenol -) 650 mg PO Q6H PRN PRN Reason: PAIN Last Admin: 05/12/18 08:40 Dose: 650 mg Albuterol Sulfate (Ventolin 0.083% Nebulizer Soln -) 1 amp NEB Q4H PRN PRN Reason: SHORT OF BREATH/WHEEZING Last Admin: 05/10/18 05:14 Dose: 1 amp Albuterol Sulfate (Ventolin 0.083% Nebulizer Soln -) 1 amp NEB RQID [facility] Last Admin: 05/12/18 11:40 Dose: 1 amp Budesonide/Formoterol Fumarate (Symbicort 160/4.5mcg -) 2 puff IH BID [facility] Last Admin: 05/12/18 09:22 Dose: 2 inhaler Enoxaparin Sodium (Lovenox -) 40 mg SQ HS [facility] Last Admin: 05/11/18 21:35 Dose: 40 mg Ergocalciferol (Drisdol -) 50,000 unit PO Roe@1000 [facility] Last Admin: 05/12/18 09:15 Dose: 50,000 unit Insulin Aspart (Novolog Vial Sliding Scale -) 1 vial SQ ACHS [facility]; Protocol Last Admin: 05/12/18 11:12 Dose: 8 units Methylprednisolone Sodium Succinate (Solu-Medrol -) 60 mg IVPUSH Q6H-IV [facility] Last Admin: 05/12/18 09:14 Dose: 60 mg Montelukast Sodium (Singulair -) 10 mg PO HS [facility] Last Admin: 05/11/18 21:35 Dose: 10 mg (Genvoya) Patient's Own Medication Genvoya (Non- Formulary) 1 each PO DAILY [facility] Last Admin: 05/12/18 09:14 Dose: 1 each Grpgd-9-Ybkf Ethyl Esters (Lovaza -) 2 gm PO DAILY [facility] Last Admin: 05/12/18 09:14 Dose: 2 gm Tiotropium [place] (Spiriva Respimat) 2 puff IH DAILY [facility] Last Admin: 05/12/18 09:22 Dose: 2 puff - Objective Vital Signs: Vital Signs Temperature 97.2 F L 05/12/18 09:00 Pulse Rate 97 H 05/12/18 09:00 Respiratory Rate 20 05/12/18 09:00 Blood Pressure 114/73 05/12/18 09:00 O2 Sat by Pulse Oximetry (%) 94 L 05/12/18 09:00 Constitutional: Yes: Calm, Obese Eyes: Yes: WNL HENT: Yes: WNL Neck: Yes: WNL Cardiovascular: Yes: Regular Rate and Rhythm, S1, S2 Respiratory: Yes: Wheezes (bilateral wheezes) Gastrointestinal: Yes: Normal Bowel Sounds, Soft Extremities: Yes: WNL Edema: Yes Labs: CBC, BMP 05/12/18 08:30 05/12/18 08:30 Problem List - Problems (1) Asthma exacerbation Code(s): J45.901 - UNSPECIFIED ASTHMA WITH (ACUTE) EXACERBATION Qualifiers: Asthma severity: moderate Asthma persistence: unspecified Qualified Code( s): J45.901 - Unspecified asthma with (acute) exacerbation (2) Anemia Code(s): D64.9 - ANEMIA, UNSPECIFIED (3) HIV (human immunodeficiency virus infection) Code(s): Z21 - ASYMPTOMATIC HUMAN IMMUNODEFICIENCY VIRUS INFECTION STATUS (4) Obesity Code(s): E66.9 - OBESITY, UNSPECIFIED Qualifiers: Obesity type: unspecified obesity type Obesity classification: adult class 3 (BMI >= 40) Serious obesity comorbidity presence: unspecified whether serious comorbidity present Body mass index: BMI 60.0-69.9 Qualified Code(s) : E66.01 - Morbid (severe) obesity due to excess calories; Z68.44 - Body mass index (BMI) 60.0-69.9, adult (5) Sleep apnea, obstructive Code(s): G47.33 - OBSTRUCTIVE SLEEP APNEA (ADULT) (PEDIATRIC) Assessment/Plan IMP CHRONIC PERSISTENT ASTHMA WITH ACUTE EXACERBATION SLOWLY IMPROVING OSAS DM HTN HIV MORBID OBESITY PLAN IV STEROIDS SAME DOSE INHALED BRONCHODILATORS O2 MONITOR PEAK FLOW COMPLIANCE WITH CPAP PFTS OUTPATIENT DVT PROPHYLAXIS WT REDUCTION CONSIDER BARIATRIC SURGERY EVALUATION DR GREENWOOD Problem List - Problems (1) Asthma exacerbation Code(s): J45.901 - UNSPECIFIED ASTHMA WITH (ACUTE) EXACERBATION Qualifiers: Asthma severity: moderate Asthma persistence: unspecified Qualified Code( s): J45.901 - Unspecified asthma with (acute) exacerbation (2) Anemia Code(s): D64.9 - ANEMIA, UNSPECIFIED (3) HIV (human immunodeficiency virus infection) Code(s): Z21 - ASYMPTOMATIC HUMAN IMMUNODEFICIENCY VIRUS INFECTION STATUS (4) Obesity Code(s): E66.9 - OBESITY, UNSPECIFIED Qualifiers: Obesity type: unspecified obesity type Obesity classification: adult class 3 (BMI >= 40) Serious obesity comorbidity presence: unspecified whether serious comorbidity present Body mass index: BMI 60.0-69.9 Qualified Code(s) : E66.9 - Obesity, unspecified; Z68.44 - Body mass index (BMI) 60.0-69.9, adult (5) Sleep apnea, obstructive Code(s): G47.33 - OBSTRUCTIVE SLEEP APNEA (ADULT) (PEDIATRIC)
--- NOTE | 2018-05-12 16:57 | PN ---
Progress Note (short form) - Note Progress Note: Subjective: No fever or chills . No abd pain . complains of wheezing Objective: Vital Signs: Last Vital Signs Temp Pulse Resp BP Pulse Ox 97.2 F L 97 H 20 114/73 94 L 05/12/18 09:00 05/12/18 09:00 05/12/18 09:00 05/12/18 09:00 05/12/18 09:00 Laboratory Results - last 24 hr 05/11/18 05/12/18 05/12/18 21:36 06:26 08:30 WBC 18.7 H RBC 4.91 Hgb 10.6 L Hct 33.8 MCV 68.9 L MCH 21.6 L MCHC 31.3 L RDW 19.0 H Plt Count 449 H MPV 7.5 Absolute Neuts (auto) 15.6 H Neutrophils % 83.6 H Lymphocytes % 8.3 Monocytes % 7.5 Eosinophils % 0.0 Basophils % 0.6 Nucleated RBC % 0 Sodium Potassium Chloride Carbon Dioxide Anion Gap BUN Creatinine Creat Clearance w eGFR POC Glucometer 259 256 Random Glucose Calcium Phosphorus Magnesium 05/12/18 05/12/18 08:30 11:08 WBC RBC Hgb Hct MCV MCH MCHC RDW Plt Count MPV Absolute Neuts (auto) Neutrophils % Lymphocytes % Monocytes % Eosinophils % Basophils % Nucleated RBC % Sodium 136 Potassium 4.5 Chloride 102 Carbon Dioxide 26 Anion Gap 8 BUN 16 Creatinine 0.9 Creat Clearance w eGFR > 60 POC Glucometer 288 Random Glucose 233 H Calcium 9.4 Phosphorus 3.1 Magnesium 2.5 H Physical Exam: NAD , sitting comfortably in chair not wheezing. upper resp noises started when MD there CV: RRR, no MRG Lungs:good air entry, minimal wheezes , decreased breath sounds at bases. Ext: no edema. ASSESSMENT AND PLAN: 46 y/o lady with h/o Asthma, HIV, anemia who presented with SOB and wheezing , Abd pain N/V and rectal bleed . She was found to have Asthma exacerbation 1- Asthma exacerbation: patient is making upper respiratory noises. her lung exam cont to improve - steroids. will probably deescalate tomorrow - NEbs, symbicort, signular - Peak flow 2- DM: hold metformin. [place]SI [place] will use januvia , due to type 2 lactic acidosis in 2017 3- HIV : cont Genvoya HLOC Visit type - Emergency Visit Emergency Visit: Yes ED Registration Date: 05/09/18 Care time: The patient presented to the Emergency Department on the above date and was hospitalized for further evaluation of their emergent condition. - New Patient This patient is new to me today: No - Critical Care Critical Care patient: No
[2018-05-12] MEDS: MONTELUKAST NA 10 MG TABLET PO SCH (21:47)
[2018-05-12] MEDS: ENOXAPARIN NA (PORCINE) 40 MG/0.4 ML DISP.SYRIN SQ SCH (21:47)
[2018-05-13] MEDS: methylPREDNISolone NA SUCC 40 MG/1 ML VIAL IVPUSH SCH ×3 (03:54→21:46)
[2018-05-13] MEDS: INSULIN SLIDING SCALE (NOVOLOG) 1 VIAL SQ SCH ×4 (06:32→21:45)
[2018-05-13] MEDS ORDERED: INSULIN (NOVOLOG) ASPART 100 UNITS/ML 10ML VIAL ONE ×3 (06:51→16:56)
[2018-05-13] MEDS: ALBUTEROL SO4 0.083% IH SOL 2.5 MG/3 ML VIAL.NEB. NEB SCH ×4 (07:15→21:18)
[2018-05-13] MEDS: GENVOYA PO SCH (09:45)
[2018-05-13] MEDS: TIOTROPIUM BROMIDE 2.5 MCG (SPIRIVA) RESPIMAT INHALER IH SCH (09:45)
[2018-05-13] MEDS: OMEGA-3 ACID ETHYL ESTERS (FATTY-ACIDS) 1 GM CAPSULE (FP) PO SCH (09:45)
[2018-05-13] MEDS: BUDESONIDE/FORMETEROL FUMARATE 160/4.5 mcg INHALER IH SCH ×2 (09:46→21:49)
--- NOTE | 2018-05-13 13:52 | PN ---
Progress Note (short form) - Note Progress Note: PULMONARY States breathing slightly improving. Peak flow this AM 220. Vital Signs Period Temp Pulse Resp BP Sys/So Pulse Ox Last 24 Hr 97.8 F-98.2 F 74-81 20-20 144-152/77-89 95-95 Gen: mildly tachypneic with speaking Heart: RRR Lung: poor air entry, scattered rhonchi, wheezes Abd: soft, obese, nontender Ext: + edema CBC, BMP 05/12/18 08:30 05/12/18 08:30 Active Medications Acetaminophen (Tylenol -) 650 mg PO Q6H PRN PRN Reason: PAIN Last Admin: 05/12/18 08:40 Dose: 650 mg Albuterol Sulfate (Ventolin 0.083% Nebulizer Soln -) 1 amp NEB Q4H PRN PRN Reason: SHORT OF BREATH/WHEEZING Last Admin: 05/10/18 05:14 Dose: 1 amp Albuterol Sulfate (Ventolin 0.083% Nebulizer Soln -) 1 amp NEB RQID [facility] Last Admin: 05/13/18 11:20 Dose: 1 amp Budesonide/Formoterol Fumarate (Symbicort 160/4.5mcg -) 2 puff IH BID [facility] Last Admin: 05/13/18 09:46 Dose: 2 inhaler Enoxaparin Sodium (Lovenox -) 40 mg SQ HS [facility] Last Admin: 05/12/18 21:47 Dose: 40 mg Ergocalciferol (Drisdol -) 50,000 unit PO Roe@1000 [facility] Last Admin: 05/12/18 09:15 Dose: 50,000 unit Insulin Aspart (Novolog Vial Sliding Scale -) 1 vial SQ [facility]; Protocol Last Admin: 05/13/18 11:57 Dose: 6 units Methylprednisolone Sodium Succinate (Solu-Medrol -) 60 mg IVPUSH Q6H-IV [facility] Last Admin: 05/13/18 09:44 Dose: 60 mg Montelukast Sodium (Singulair -) 10 mg PO HS [facility] Last Admin: 05/12/18 21:47 Dose: 10 mg (Genvoya) Patient's Own Medication Genvoya (Non- Formulary) 1 each PO DAILY [facility] Last Admin: 05/13/18 09:45 Dose: 1 each Atcdd-2-Atkb Ethyl Esters (Lovaza -) 2 gm PO DAILY [facility] Last Admin: 05/13/18 09:45 Dose: 2 gm Tiotropium [place] (Spiriva Respimat) 2 puff IH DAILY [facility] Last Admin: 05/13/18 09:45 Dose: 2 puff A/P Acute Asthma Exacerbation Morbid Obesity PUMA HTN DM HIV - will decrease medrol to 40mg q6h - inhaled bronchodilators - monitor peak flow - CPAP at night - DVT prophylaxis
--- NOTE | 2018-05-13 15:02 | PN ---
Teaching Attending Note Name of Resident: Perla Casanova ATTENDING PHYSICIAN STATEMENT I saw and evaluated the patient. I reviewed the resident's note and discussed the case with the resident. I agree with the resident's findings and plan as documented. SUBJECTIVE: No fever or chills. cont to have wheezing. cont to feel something moving in her abd OBJECTIVE: NAD, sitting comfortably in chair. CV: RRR, no MRG Lungs: good air entry, minimal wheezes , decreased breath sounds at bases. Ext: no edema. ASSESSMENT AND PLAN: 46 y/o lady with h/o Asthma, HIV, anemia who presented with SOB and wheezing , Abd pain N/V and rectal bleed . She was found to have Asthma exacerbation 1- Asthma exacerbation: patient is making upper respiratory noises. her lung exam cont to improve - d/w Dr. Felix . will decrease steroids to 40 BID. - NEbs, symbicort, signular 2- DM: [place] use [place]uvia , due to type 2 lactic acidosis in 2017 with metformin 3- HIV : cont Genvoya HLOC
--- NOTE | 2018-05-13 18:22 | PN ---
Physical Exam: SUBJECTIVE: Patient seen and examined at bedside this morning. No acute events overnight. Patient still reports wheezing. Denies fever, chills, chest pain, abdominal pain, diarrhea, urinary symptoms. OBJECTIVE: Vital Signs Period Temp Pulse Resp BP Sys/So Pulse Ox Last 24 Hr 97.8 F-98.2 F 74-81 20-20 144-168/77-89 95-95 GENERAL: The patient is awake, alert, and fully oriented, in no acute distress. HEAD: Normal with no signs of trauma. EYES: PERRLA, EOMI, sclera anicteric, conjunctiva clear. ENT: Ears normal, nares patent, oropharynx clear without exudates, moist mucous membranes. NECK: Soft, supple neck. LUNGS: +scattered wheezes bilaterally, decreased breath sound bilateral bases. HEART: Regular rate and rhythm, S1, S2 without murmur, rub or gallop. ABDOMEN: Soft, obese, nontender, nondistended, normoactive bowel sounds. EXTREMITIES: 2+ pulses, warm, well-perfused, no edema. Laboratory Results - last 24 hr 05/12/18 05/13/18 05/13/18 21:45 05:46 11:37 POC Glucometer 335 233 270 05/13/18 15:22 POC Glucometer 231 Active Medications Generic Name Dose Route Start Last Admin Trade Name Freq PRN Reason Stop Dose Admin Acetaminophen 650 mg 05/12/18 08:36 05/12/18 08:40 Tylenol - PO 650 mg Q6H PRN Administration PAIN Albuterol Sulfate 1 amp 05/09/18 21:55 05/10/18 05:14 Ventolin 0.083% Nebulizer Soln - NEB 1 amp Q4H PRN Administration SHORT OF BREATH/WHEEZING Albuterol Sulfate 1 amp 05/10/18 12:00 05/13/18 16:01 Ventolin 0.083% Nebulizer Soln - NEB 1 amp RQID KAREN Administration Budesonide/Formoterol Fumarate 2 puff 05/10/18 10:00 05/13/18 09:46 Symbicort 160/4.5mcg - IH 2 inhaler BID KAREN Administration Enoxaparin Sodium 40 mg 05/09/18 22:15 05/12/18 21:47 Lovenox - SQ 40 mg HS KAREN Administration Ergocalciferol 50,000 unit 05/12/18 10:00 05/12/18 09:15 Drisdol - PO 50,000 unit Roe@1000 KAREN Administration Insulin Aspart 1 vial 05/11/18 16:30 05/13/18 16:58 Novolog Vial Sliding Scale - SQ 4 units ACHS KAREN Administration Protocol Methylprednisolone Sodium Succinate 40 mg 05/13/18 22:00 Solu-Medrol - IVPUSH BID KAREN Montelukast Sodium 10 mg 05/10/18 22:00 05/12/18 21:47 Singulair - PO 10 mg HS KAREN Administration (Genvoya) Patient's 1 each 05/11/18 10:00 05/13/18 09:45 Own Medication PO 1 each Genvoya (Non- DAILY KAREN Administration Formulary) Qufvl-0-Ansy Ethyl Esters 2 gm 05/10/18 10:00 05/13/18 09:45 Lovaza - PO 2 gm DAILY KAREN Administration Tiotropium [place] 2 puff 05/10/18 10:00 05/13/18 09:45 Spiriva Respimat IH 2 puff DAILY KAREN Administration ASSESSMENT/PLAN: Patient is a 47 year old female with past medical history of recurrent hospitalizations for asthma exacerbations, DM, HTN, Morbid obesity, PUMA not compliant with CPAP use, HIV (on Genvoya), Anemia and chronic epigastric pain, presented with worsening SOB and wheezing for 4 days, accompanied with productive cough of greenish-yellowish sputum. #Acute asthma exacerbation -CXR - no gross focal consolidation -Leukocytosis likely 2/2 chronic steroid use/obesity, less likely infection -Flu negative -will continue to monitor -Baseline peak flow 250. Patient reported 220 today. -Daily peak flow -Pulmonology (Dr. Martin) consulted. Recommendations appreciated. -Albuterol neb RQID and q4h PRN -Symbicort BID -Singulair 10mg PO HS -Spiriva daily -Solu-medrol decreased to 40mg BID -IgE level and PFTs as outpatient. #DM -BGM ACHS -Insulin sliding scale implemented -Hold home Metformin -Patient has history of elevated lactic acid (baseline 5-6) in 2017 -consider switching Metformin to Januvia once discharged. #Hypertension -Not on any home medications -Will continue to monitor #PUMA -CPAP at bedtime #HIV -Continue Genvoya -CD counts pending -last known CD4 count 889 in May 2017 #Morbid obesity -Referred to bariatric surgery -Encourage follow-up and weight loss #FEN -Not on any standing fluids -Electrolytes wnl, routine bmp monitoring -Diabetic/Sodium controlled diet #Prophylaxis -Heparin 5000units sq tid #Disposition -full code -med-surg Visit type - Emergency Visit Emergency Visit: Yes ED Registration Date: 05/09/18 Care time: The patient presented to the Emergency Department on the above date and was hospitalized for further evaluation of their emergent condition. - New Patient This patient is new to me today: No - Critical Care Critical Care patient: No
[2018-05-13] MEDS: ENOXAPARIN NA (PORCINE) 40 MG/0.4 ML DISP.SYRIN SQ SCH (21:45)
[2018-05-13] MEDS: MONTELUKAST NA 10 MG TABLET PO SCH (21:45)
[2018-05-14] MEDS: INSULIN SLIDING SCALE (NOVOLOG) 1 VIAL SQ SCH ×3 (06:21→17:09)
[2018-05-14] MEDS ORDERED: INSULIN (NOVOLOG) ASPART 100 UNITS/ML 10ML VIAL ONE ×2 (06:43→12:16)
[2018-05-14] MEDS: ALBUTEROL SO4 0.083% IH SOL 2.5 MG/3 ML VIAL.NEB. NEB SCH ×3 (07:35→17:38)
[2018-05-14 08:33] LABS: BASO % 0.4 % (0-2.0); HEMATOCRIT 36.2 % (32.4-45.2); HEMOGLOBIN 11.3 GM/dL (10.7-15.3); LYMPH % 10.1 % (8-40); MCH 21.4 pg (25.7-33.7); MCHC 31.1 g/dl (32.0-36.0); MEAN CELL VOLUME 68.8 fl (80-96); MEAN PLT VOLUME 7.6 fl (7.5-11.1); MONO % 4.8 % (3.8-10.2); NEUT % 84.7 % (42.8-82.8); PLATELET COUNT 432 K/MM3 (134-434); RBC 5.26 M/mm3 (3.60-5.2); RDW 18.6 % (11.6-15.6); WHITE BLOOD COUNT 16.7 K/mm3 (4.0-10.0)
[2018-05-14 08:59] LABS: ANION GAP 10 MMOL/L (8-16); BLOOD UREA NITROGEN 19 mg/dL (7-18); CALCIUM 8.7 mg/dL (8.5-10.1); CHLORIDE 100 mmol/L (98-107); CO2 27 mmol/L (21-32); GLUCOSE,RANDOM 238 mg/dL (74-106); MAGNESIUM 2.6 mg/dL (1.8-2.4); PHOSPHOROUS 3.4 mg/dL (2.5-4.9); POTASSIUM 4.5 mmol/L (3.5-5.1); SODIUM 136 mmol/L (136-145)
[2018-05-14] MEDS ORDERED: PT OWN MED DRAWER 7, Y5N ONE (10:41)
[2018-05-14] MEDS: GENVOYA PO SCH (10:43)
[2018-05-14] MEDS: BUDESONIDE/FORMETEROL FUMARATE 160/4.5 mcg INHALER IH SCH (10:44)
[2018-05-14] MEDS: OMEGA-3 ACID ETHYL ESTERS (FATTY-ACIDS) 1 GM CAPSULE (FP) PO SCH (10:44)
[2018-05-14] MEDS: methylPREDNISolone NA SUCC 40 MG/1 ML VIAL IVPUSH SCH (10:44)
[2018-05-14] MEDS: TIOTROPIUM BROMIDE 2.5 MCG (SPIRIVA) RESPIMAT INHALER IH SCH (10:45)
[2018-05-14 11:55] LABS: ANISOCYTOSIS 2+; MACROCYTOSIS 0; PLATELET ESTIMATE NORMAL
--- NOTE | 2018-05-14 12:24 | PN ---
Progress Note (short form) - Note Progress Note: PULMONARY States breathing slightly improving, chest feels looser. Peak flow this AM 250. Reports some chills and possible dysuria. Vital Signs Period Temp Pulse Resp BP Sys/So Pulse Ox Last 24 Hr 98.2 F-99.5 F 66-81 18-20 137-168/65-90 93 Gen: less tachypneic with speaking Heart: RRR Lung: better air entry, scattered rhonchi, wheezes Abd: soft, obese, nontender Ext: + edema CBC, BMP 05/14/18 07:38 05/14/18 07:38 Active Medications Acetaminophen (Tylenol -) 650 mg PO Q6H PRN PRN Reason: PAIN Last Admin: 05/12/18 08:40 Dose: 650 mg Albuterol Sulfate (Ventolin 0.083% Nebulizer Soln -) 1 amp NEB Q4H PRN PRN Reason: SHORT OF BREATH/WHEEZING Last Admin: 05/10/18 05:14 Dose: 1 amp Albuterol Sulfate (Ventolin 0.083% Nebulizer Soln -) 1 amp NEB RQID [facility] Last Admin: 05/13/18 21:18 Dose: 1 amp Budesonide/Formoterol Fumarate (Symbicort 160/4.5mcg -) 2 puff IH BID [facility] Last Admin: 05/14/18 10:44 Dose: 2 inhaler Enoxaparin Sodium (Lovenox -) 40 mg SQ HS [facility] Last Admin: 05/13/18 21:45 Dose: 40 mg Ergocalciferol (Drisdol -) 50,000 unit PO Roe@1000 [facility] Last Admin: 05/12/18 09:15 Dose: 50,000 unit Insulin Aspart (Novolog Vial Sliding Scale -) 1 vial SQ ACHS [facility]; Protocol Last Admin: 05/14/18 11:26 Dose: 2 units Montelukast Sodium (Singulair -) 10 mg PO HS [facility] Last Admin: 05/13/18 21:45 Dose: 10 mg (Genvoya) Patient's Own Medication Genvoya (Non- Formulary) 1 each PO DAILY [facility] Last Admin: 05/14/18 10:43 Dose: 1 each Ortwk-2-Heuq Ethyl Esters (Lovaza -) 2 gm PO DAILY [facility] Last Admin: 05/14/18 10:44 Dose: 2 gm Prednisone (Deltasone -) 60 mg PO DAILY [facility] Tiotropium [place] (Spiriva Respimat) 2 puff IH DAILY [facility] Last Admin: 05/14/18 10:45 Dose: 2 puff A/P Acute Asthma Exacerbation Morbid Obesity PUMA HTN DM HIV - will order UA, UCx - medrol taper - inhaled bronchodilators - monitor peak flow - CPAP at night - DVT prophylaxis
[2018-05-14] MEDS ORDERED: NYSTATIN 100000 UNIT/GM TOPICAL OINTMENT 15 GM TUBE TP SCH (12:30)
[2018-05-14] MEDS ORDERED: NYSTATIN POWDER 100,000 UNITS/GM - 15 GM TOPICAL POWDER TP SCH (12:30)
--- NOTE | 2018-05-14 14:16 | PN ---
Teaching Attending Note Name of Resident: Perla Casanova ATTENDING PHYSICIAN STATEMENT I saw and evaluated the patient. I reviewed the resident's note and discussed the case with the resident. I agree with the resident's findings and plan as documented. SUBJECTIVE: No fever or chills. breathing is better .no CP . OBJECTIVE: NAD, sitting comfortably in chair. no tachypnea CV: RRR, no MRG Lungs: good air entry, no wheezes , decreased breath sounds at bases. Ext: no edema. ASSESSMENT AND PLAN: 46 y/o lady with h/o Asthma, HIV, anemia who presented with SOB and wheezing , Abd pain N/V and rectal bleed . She was found to have Asthma exacerbation 1- Asthma exacerbation: much improved case was d/w Dr. FELIX . no need for IV steroids any more. will cont steroids taper and start at 60 mg - NEbs, symbicort, signular - f/u with pulm as out pt - pre- post. - d/w dr. Felix, that UA was neg on admission and her chronic L upper abd pain , was worked up by [facility] ( [place], preg) and here ( UA) . dc UA. 2- DM: will dc on januvia , due to type 2 lactic acidosis in 2017 with metformin 3- HIV : cont Genvoya dispo : dc home pending pre-post f/u pcp , Id for HIV , and Pulm
[2018-05-14 14:39] VITALS: BP 123/79; TEMP 98.1
[2018-05-14 14:59] VITALS: PULSE 98
--- NOTE | 2018-05-14 15:43 | DS ---
Physical Exam: SUBJECTIVE: Patient seen and examined at bedside this morning. No acute events overnight. Patient has no new complaints. Peak flow done today - 270. Pre and post done 96/90. OBJECTIVE: Vital Signs Temperature 98.1 F 05/14/18 14:38 Pulse Rate 98 H 05/14/18 14:58 Respiratory Rate 20 05/14/18 14:00 Blood Pressure 123/79 05/14/18 14:38 O2 Sat by Pulse Oximetry (%) 90 L 05/14/18 14:58 PHYSICAL EXAM GENERAL: The patient is awake, alert, and fully oriented, in no acute distress. HEAD: Normal with no signs of trauma. EYES: PERRLA, EOMI, sclera anicteric, conjunctiva clear. ENT: Ears normal, nares patent, oropharynx clear without exudates, moist mucous membranes. NECK: Soft, supple neck. LUNGS: +scattered wheezes bilaterally, decreased breath sound bilateral bases. HEART: Regular rate and rhythm, S1, S2 without murmur, rub or gallop. ABDOMEN: Soft, obese, nontender, nondistended, normoactive bowel sounds. EXTREMITIES: 2+ pulses, warm, well-perfused, no edema. LABS Laboratory Results - last 24 hr 05/13/18 05/13/18 05/14/18 15:22 21:39 05:55 WBC RBC Hgb Hct MCV MCH MCHC RDW Plt Count MPV Absolute Neuts (auto) Neutrophils % Lymphocytes % Monocytes % Eosinophils % Basophils % Nucleated RBC % Hypochromia Platelet Estimate Polychromasia Poikilocytosis Anisocytosis Microcytosis Macrocytosis Sodium Potassium Chloride Carbon Dioxide Anion Gap BUN Creatinine Creat Clearance w eGFR POC Glucometer 231 232 195 Random Glucose Calcium Phosphorus Magnesium 05/14/18 05/14/18 05/14/18 07:38 07:38 11:21 WBC 16.7 H RBC 5.26 H Hgb 11.3 Hct 36.2 MCV 68.8 L MCH 21.4 L MCHC 31.1 L RDW 18.6 H Plt Count 432 MPV 7.6 Absolute Neuts (auto) 14.2 H Neutrophils % 84.7 H Lymphocytes % 10.1 D Monocytes % 4.8 Eosinophils % 0.0 Basophils % 0.4 Nucleated RBC % 0 Hypochromia 1+ Platelet Estimate Normal Polychromasia 1+ Poikilocytosis 2+ Anisocytosis 2+ Microcytosis 2+ Macrocytosis 0 Sodium 136 Potassium 4.5 Chloride 100 Carbon Dioxide 27 Anion Gap 10 BUN 19 H Creatinine 1.0 Creat Clearance w eGFR 59.96 POC Glucometer 198 Random Glucose 238 H Calcium 8.7 Phosphorus 3.4 Magnesium 2.6 H HOSPITAL COURSE: Date of Admission:05/09/18 Date of Discharge: 05/14/18 Patient is a 47 year old female with past medical history of recurrent hospitalizations for asthma exacerbations, DM, HTN, Morbid obesity, PUMA not compliant with CPAP use, HIV (on Genvoya), Anemia and chronic epigastric pain, presented with worsening SOB and wheezing for 4 days, accompanied with productive cough of greenish-yellowish sputum. Chest xray was done which did not show any gross focal consolidation. Patient was started on IV steroids, inhalers and nebulizations. Patient continued to improve throughout her hospital stay. Upon review of patient's history, it was noted that patient had chronic lactic acidosis. Her metformin was stopped and patient started on Januvia upon discharge. Patient was discharged on prednisone taper, with instructions to follow-up with PCP and pulmonology. Minutes to complete discharge: 40 Discharge Summary Reason For Visit: ASTHMA WITH ACUTE EXACERBATION Current Active Problems Asthma exacerbation (Acute) Diabetes mellitus (Chronic) Condition: Improved - Instructions Diet, Activity, Other Instructions: Your visit You were admitted to the hospital because you had shortness of breath. You had an acute flare-up of your asthma. You were given steroids and nebulizations, to which you responded well. You will be sent home with a steroid taper. Please take them as instructed below. We will stop your metformin as you had history of elevated lactic acid, which would be worsened by the Metformin. You will be started on a new diabetic medication, Januvia as prescribed below. Medications Please take note of the following changes to your medications: 1. STOP taking Metformin. 2. Take Januvia 100 mg daily. (for Diabetes) 3. Prednisone taper: (for asthma) -Prednisone 60mg daily for 2 days (05/15-05/16) -Prednisone 50mg daily for 2 days (05/17-05/18) -Prednisone 40mg daily for 2 days (05/19-05/20) -Prednisone 30mg daily for 2 days (05/21-05/22) -Prednisone 20mg daily for 2 days (05/23-05/24) -Prednisone 10mg daily for 2 days (05/25-05/26) Follow-up -Follow-up with your primary care doctor (Dr.Sofia Jiménez) within 1 week. -Follow-up with the gasket former (Dr. Martin) within 1 week. Additional info Call 911 or go to the ED if with any worsening fever, chills, shortness of breath, chest pain, headache, belly pain, or any new concerns noted. Referrals: Mick Martin MD [Staff Physician] - 1 Week Carla Jiménez MD [Primary Care Provider] - 1 Week Disposition: HOME - Home Medications Comprehensive Discharge Medication List: Ambulatory Orders Elviteg/Cob/Emtri/Tenof Alafen [Genvoya (Non-Formulary)] 1 tab PO DAILY Budesonide/Formeterol Fumarate [SYMBICORT 160/4.5mcg -] 2 inh PO BID 02/20/17 Montelukast Na [Singulair -] 10 mg PO HS #1 tablet 11/23/17 Tiotropium [place] [Spiriva] 1 puff IH DAILY 30 Days #1 cap 11/23/17 Cholecalciferol (Vitamin D3) [D3-50] 50,000 unit PO WEEKLY 01/31/18 [place]-3/Dha/Epa/Fish Oil [[place] 3 500 Softgel] 2 each PO DAILY 01/31/18 Albuterol 0.083% Nebulizer Rach [Ventolin 0.083% Nebulizer Soln -] 1 amp NEB Q6H PRN #30 amp 05/14/18 Albuterol Sulfate Inhaler - [Ventolin HFA Inhaler -] 1 puff IH Q4H PRN #1 inhaler 05/14/18 Prednisone See Taper PO DAILY #42 tablet 05/14/18 Sitagliptin Phosphate [Januvia] 100 mg PO DAILY #30 tablet 05/14/18 This patient is new to me today: No Emergency Visit: Yes ED Registration Date: 05/09/18 Care time: The patient presented to the Emergency Department on the above date and was hospitalized for further evaluation of their emergent condition. Critical Care patient: No - Discharge Referral Referred to [facility] No
[2018-05-14 16:20] LABS: URINE APPEARANCE CLEAR; URINE BILIRUBIN NEGATIVE (<2.0 mg/dL); URINE COLOR LTYELLOW; URINE GLUCOSE (UA) 2+ (NEGATIVE); URINE KETONE NEGATIVE (NEGATIVE); URINE LEUK ESTERASE NEGATIVE (NEGATIVE); URINE NITRITE NEGATIVE (NEGATIVE); URINE PROTEIN NEGATIVE (NEGATIVE); URINE UROBILINOGEN NEGATIVE mg/dL (0.2-1.0)
[2018-05-15] MEDS ORDERED: predniSONE 20 MG TABLET (UD) PO SCH (10:00)
== END 2018-05-14 18:13 | disposition home or self-care (01) | DRG 202 ==
LOC: JER 16:00 → JERBED 20:30 → OBSVTOIN 21:55 → J6S 22:29
PROVIDERS: ADMIT Internal Medicine; ATTEND Internal Medicine
PROC: 3E0F7GC Introduction of Other Therapeutic Substance into Respiratory Tract, Via Natural or Artificial Opening (ICD-10-PCS; principal; 2018-05-09)
DX: J45.41 Moderate persistent asthma with (acute) exacerbation (principal); Z68.44 Body mass index [BMI] 60.0-69.9, adult; G47.33 Obstructive sleep apnea (adult) (pediatric); Z21 Asymptomatic human immunodeficiency virus [HIV] infection status; D50.9 Iron deficiency anemia, unspecified; E66.01 Morbid (severe) obesity due to excess calories; Z91.19 Patient's noncompliance with other medical treatment and regimen; E11.9 Type 2 diabetes mellitus without complications; Z79.84 Long term (current) use of oral hypoglycemic drugs
CPT/HCPCS: 36415; 36600; 71046-TC-FY; 80048; 80053; 81003; 81015; 82375; 82803; 82962; 83050; 83735; 84100; 84702; 85025; 86359; 86360; 87086; 87804; 93005; 93010; 93970-TC; 94010; 94150; 94640; 94660; 94761; 99285-25; G0378

== ENCOUNTER 2018-06-07 13:25 | Emergency (ER) | payer OTHER ==
[2018-06-07 13:37] VITALS: BMI 60.5
[2018-06-07] MEDS ORDERED: ACETAMINOPHEN 1000 MG/100 ML VIAL (NON FORMULARY) IVPB ONE (14:17)
[2018-06-07] MEDS ORDERED: ALBUTEROL SO4 2.5/IPRATROPIUM 0.5 INH SOL 3 ML VIAL.NEB. NEB ONE ×4 (14:17→18:55)
--- NOTE | 2018-06-07 14:21 | PDOC ---
History of Present Illness - General History Source: Patient Exam Limitations: No Limitations - History of Present Illness Initial Comments: 06/07/18 15:31 The patient is a 48 year old female with a significant PMH of diabetes, hypertension asthma and HIV who presents to the emergency department with worsening shortness of breath for 1 week. The patient reports that her chest pain is exertional left sided and midsternal with radiation to her right lower breast. She states that she presumed her shortness of breath to be asthma related by which she took an albuterol treatment with no apparent relief. The patient also reports some associated bilateral lower extremity swelling and erythema (left greater than right), and clamminess. She denies any fever, chills, nausea, vomiting, diarrhea, constipation or urinary symptoms. She denies any headache or dizziness. The patient denies any other symptoms or complaints. <Laura Rodriguez - Last Filed: 06/07/18 15:31> <Reese Quan - Last Filed: 06/07/18 16:39> - General Chief Complaint: Respiratory Stated Complaint: SHORT OF BREATH Time Seen by Provider: 06/07/18 13:54 Past History <Laura Rodriguez - Last Filed: 06/07/18 15:31> - Past Medical History Anemia: Yes (IRON DEF) Asthma: Yes Cancer: No Cardiac Disorders: No CVA: No COPD: No CHF: No DVT: No Dementia: No Diabetes: No Dialysis: No GI Disorders: No Disorders: No HTN: No Hypercholesterolemia: No Kidney Stones: No Liver Disease: No Psychiatric Problems: No Seizures: No Thyroid Disease: No Lung CA: No - Surgical History Abdominal Surgery: Yes Appendectomy: No Cardiac Surgery: No Cholecystectomy: No Lung Surgery: No Neurologic Surgery: No Orthopedic Surgery: No - Family Disease History Family Disease History: Diabetes: Father, Heart Disease: Father - Reproductive History (#): 6 Para: 5 Cervical CA: No Dysfunctional Uterine Bleeding: Yes Ectopic : No Endometrial CA: No Polycystic Ovaries: No Therapeutic (s) & number: No Tubal Ligation: No Spontaneous : 1 - Immunization History Immunization Up to Date: Yes - Suicide/Smoking/Psychosocial Hx Smoking History: Unknown if ever smoked Have you smoked in the past 12 months: No Hx Alcohol Use: No Drug/Substance Use Hx: No Substance Use Type: None Hx Substance Use Treatment: No <Reese Quan - Last Filed: 06/07/18 16:39> - Past Medical History Allergies/Adverse Reactions: Allergies Allergy/AdvReac Type Severity Reaction Status Date / Time omeprazole [From Prilosec] Allergy Mild Hives Verified 06/07/18 13:30 omeprazole magnesium Allergy Mild Hives Verified 06/07/18 13:30 [From Prilosec] Home Medications: Ambulatory Orders Elviteg/Cob/Emtri/Tenof Alafen [Genvoya (Non-Formulary)] 1 tab PO DAILY Budesonide/Formeterol Fumarate [SYMBICORT 160/4.5mcg -] 2 inh PO BID 02/20/17 Albuterol 0.083% Nebulizer Rach [Ventolin 0.083% Nebulizer Soln -] 1 amp NEB Q6H PRN #30 amp 05/14/18 Albuterol Sulfate Inhaler - [Ventolin HFA Inhaler -] 1 puff IH Q4H PRN #1 inhaler 05/14/18 Sitagliptin Phosphate [Januvia] 100 mg PO DAILY #30 tablet 05/14/18 Review of Systems - Review of Systems Able to Perform ROS?: Yes Comments:: 06/07/18 15:31 Constitutional: No recent illness; no fever ENT: No sore throat Cardiovascular: (+)chest pain. No palpitation Pulmonary: (+)SOB. No cough; Gastrointestinal: No nausea; no vomiting; no diarrhea Genitourinary: No urinary problems; no hematuria Skin: No rash Lymph system: No swollen glands Musculoskeletal: (+)lower extremity swelling. No joint swelling Neurological: No weakness; oo numbness; No Headache; no vertigo; no lightheadedness Psychiatric:No anxiety; no depression ROS: A complete review of 10 out of 10 review of systems is taken and is negative apart from what is previously mentioned below and in the HPI. <Laura Rodriguez - Last Filed: 06/07/18 15:31> *Physical Exam - Vital Signs Last Vital Signs Temp Pulse Resp BP Pulse Ox 97.8 F 112 H 26 H 154/81 98 06/07/18 13:35 06/07/18 13:35 06/07/18 13:35 06/07/18 13:35 06/07/18 13:55 - Physical Exam Comments: 06/07/18 15:32 Vitals: Triage vital signs reviewed General Appearance: No acute distress, well nourished, well developed Head: Atraumatic Chest Wall: Nontender Cardiac:(+)tachy. Regular rhythm, no murmurs, no rubs, no gallops Lungs: Clear to auscultation bilateral, good air movement bilaterally Abdomen: Soft, nondistended, normal bowel sounds, nontender to palpation Genitourinary: Rectal: Exam deferred Extremities:(+)3+ pitting edema bilaterally, left leg greater than right. Full range of motion to all extremities, no cyanosis, clubbing. Skin: Warm and dry, no rashes or lesions, no rash, no petechiae Neuro: AOX3; Cranial Nerves 2-12 grossly intact, Strength intact to all extremities, Sensation intact to all extremities, gait normal Psych: Normal mood, normal affect <Laura Rodriguez - Last Filed: 06/07/18 15:31> - Vital Signs Last Vital Signs Temp Pulse Resp BP Pulse Ox 97.8 F 112 H 26 H 154/81 98 06/07/18 13:35 06/07/18 13:35 06/07/18 13:35 06/07/18 13:35 06/07/18 13:55 <Reese Quan - Last Filed: 06/07/18 16:39> Moderate Sedation - Procedure Monitoring Vital Signs: Procedure Monitoring Vital Signs Temperature 97.8 F 06/07/18 13:35 Pulse Rate 112 H 06/07/18 13:35 Respiratory Rate 26 H 06/07/18 13:35 Blood Pressure 154/81 06/07/18 13:35 O2 Sat by Pulse Oximetry (%) 98 06/07/18 13:55 <Laura Rodriguez - Last Filed: 06/07/18 15:31> - Procedure Monitoring Vital Signs: Procedure Monitoring Vital Signs Temperature 97.8 F 06/07/18 13:35 Pulse Rate 112 H 06/07/18 13:35 Respiratory Rate 26 H 06/07/18 13:35 Blood Pressure 154/81 06/07/18 13:35 O2 Sat by Pulse Oximetry (%) 98 06/07/18 13:55 <Reese Quan - Last Filed: 06/07/18 16:39> Heart Score/ECG Review - History History: Moderately suspicious - Electrocardiogram EKG: Normal - Age Age: 45-65 - Risk Factors Risk Factors Heart Score: Yes Hx Hypercholesterolemia, Yes Hx Hypertension, Yes Hx Diabetes Based on the list above the patient has:: >/=3 risk factors or Hx atherosclerotic disease - ECG Impressions Comment:: 06/07/18 16:37 EKG performed at 1431 demonstrates sinus rhythm no ST elevations or T-wave inversions Interpreted by me. <Reese Quan - Last Filed: 06/07/18 16:39> ED Treatment Course - LABORATORY CBC & Chemistry Diagram: 06/07/18 15:00 06/07/18 15:00 - ADDITIONAL ORDERS Additional order review: Laboratory Results 06/07/18 15:00 D-Dimer 479 06/07/18 15:00 RBC 4.80 MCV 72.3 L MCHC 31.4 L RDW 19.9 H MPV 7.4 L Neutrophils % 60.6 D Lymphocytes % 23.3 D Monocytes % 9.3 D Eosinophils % 5.4 H D Basophils % 1.4 D <Laura Rodriguez - Last Filed: 06/07/18 15:31> - LABORATORY CBC & Chemistry Diagram: 06/07/18 15:00 06/07/18 15:00 <Reese Quan - Last Filed: 06/07/18 16:39> Medical Decision Making - Medical Decision Making 06/07/18 15:32 The patient is a 48 year old female with a significant PMH of diabetes, hypertension asthma and HIV who presents to the emergency department with worsening shortness of breath for 1 week. The patient will get labs drawn, ekg, chest ct, and vascular US. <Laura Rodriguez - Last Filed: 06/07/18 15:31> - Medical Decision Making Exertional dyspnea shortness of breath Nonischemic EKG patient slightly tachycardic on arrival unable to be ruled out for PE by perk criteria D-dimer sent Doppler of left lower extremity sent CTA ordered however patient may not be able to obtain this secondary to body habitus Dr. Lackey to follow-up results and admit patient to medicine for further further management <Reese Quan - Last Filed: 06/07/18 16:39> *DC/Admit/Observation/Transfer - Attestations Scribe Attestion: 06/07/18 15:32 Documentation prepared by Laura Rodriguez, acting as medical illustrator for Reese Quan MD. <Laura Rodriguez - Last Filed: 06/07/18 15:31> - Discharge Dispostion Decision to Admit order: Yes <Reese Quan - Last Filed: 06/07/18 16:39> Diagnosis at time of Disposition: Chest pain Qualifiers: Chest pain type: chest pain on breathing Qualified Code(s): R07.1 - Chest pain on breathing; R07.81 - Pleurodynia - Discharge Dispostion Condition at time of disposition: Fair - Referrals Referrals: Carla Jiménez MD [Primary Care Provider] -
[2018-06-07] MEDS ORDERED: ACETAMINOPHEN INJECTION 100 ML IVPB ONE (14:38)
[2018-06-07 15:12] LABS: BASO % 1.4 % (0-2.0); EOS % 5.4 % (0-4.5); HEMATOCRIT 34.7 % (32.4-45.2); HEMOGLOBIN 10.9 GM/dL (10.7-15.3); LYMPH % 23.3 % (8-40); MCH 22.7 pg (25.7-33.7); MCHC 31.4 g/dl (32.0-36.0); MEAN CELL VOLUME 72.3 fl (80-96); MEAN PLT VOLUME 7.4 fl (7.5-11.1); MONO % 9.3 % (3.8-10.2); NEUT % 60.6 % (42.8-82.8); PLATELET COUNT 420 K/MM3 (134-434); RDW 19.9 % (11.6-15.6); WHITE BLOOD COUNT 8.3 K/mm3 (4.0-10.0)
[2018-06-07 15:38] LABS: ARTERIAL BLD GAS O2 SATURATION 75.7 % (90-98.9); ARTERIAL BLOOD GAS BASE EXCESS 1.7 meq/l (-2-2); ARTERIAL BLOOD GAS PCO2 47.6 mmHg (35-45); ARTERIAL BLOOD GAS pH 7.37 (7.35-7.45); CARBOXYHEMOGLOBIN 0.9 gm% (0.5-2.0)
[2018-06-07 15:39] LABS: ALLENS TEST POSITIVE
[2018-06-07 15:41] LABS: ARTERIAL BLOOD GAS PO2 43.8 mmHg (80-100)
--- NOTE | 2018-06-07 16:29 | PDOC ---
*Physical Exam - Vital Signs Last Vital Signs Temp Pulse Resp BP Pulse Ox 97.8 F 112 H 26 H 154/81 98 06/07/18 13:35 06/07/18 13:35 06/07/18 13:35 06/07/18 13:35 06/07/18 13:55 ED Treatment Course - LABORATORY CBC & Chemistry Diagram: 06/07/18 15:00 06/07/18 16:10 - ADDITIONAL ORDERS Additional order review: Laboratory Results 06/07/18 06/07/18 06/07/18 15:15 15:00 15:00 D-Dimer 479 Anticoagulation Therapy No Result Required. Puncture Site Left radial ABG pH 7.37 ABG pCO2 at Pt Temp 47.6 H ABG pO2 at Pt Temp 43.8 L* D ABG HCO3 26.9 H ABG O2 Sat (Measured) 75.7 L ABG O2 Content 11.1 L ABG Base Excess 1.7 Rik Test Positive Carboxyhemoglobin 0.9 Methemoglobin 0.6 O2 Delivery Device No Result Required. Oxygen Flow Rate Yes Vent Mode No Result Required. Vent Rate No Result Required. Mechanical Rate No Result Required. Pressure Support Vent No Result Required. Sodium Cancelled Potassium Cancelled Chloride Cancelled Carbon Dioxide Cancelled Anion Gap Cancelled BUN Cancelled Creatinine Cancelled Creat Clearance w eGFR Cancelled Random Glucose Cancelled Calcium Cancelled Total Bilirubin Cancelled AST Cancelled ALT Cancelled Alkaline Phosphatase Cancelled Troponin I Cancelled B-Natriuretic Peptide Cancelled Total Protein Cancelled Albumin Cancelled 06/07/18 15:00 RBC 4.80 MCV 72.3 L MCHC 31.4 L RDW 19.9 H MPV 7.4 L Neutrophils % 60.6 D Lymphocytes % 23.3 D Monocytes % 9.3 D Eosinophils % 5.4 H D Basophils % 1.4 D - Medications Given in the ED: ED Medications Discontinued Medications Generic Name Dose Route Start Last Admin Trade Name Freq PRN Reason Stop Dose Admin Acetaminophen 1,000 mg 06/07/18 14:17 06/07/18 16:06 Ofirmev Injection - IVPB 06/07/18 14:18 1,000 mg ONCE ONE Administration Albuterol/Ipratropium 3 amp 06/07/18 14:17 06/07/18 14:22 Duoneb - NEB 06/07/18 14:18 3 amp ONCE ONE Administration Medical Decision Making - Medical Decision Making 06/07/18 19:12 pt signed ou tto me from dr. downing 48y F hx of asthma, hiv (on HAART, CD4 in the 800s, VRL undetectable) presents with several days of leg itching, swelling, and pain, also endorses some sob/ flor and mild intermittent wheezing 06/07/18 22:34 CT neg for PE DVT US negative possible mild asthma as cause of her sob ?celulitis? will treat with keflex will dc with pmd fu return precautions were discussed repeat vitals normalized I discussed the physical exam findings, ancillary test results and final diagnoses with the patient. I answered all of the patient's questions. The patient was satisfied with the care received and felt comfortable with the discharge plan and treatment plan. The patient will call their primary care physician within 24 hours to arrange follow-up and will return to the Emergency Department with any new, persistent or worsening symptoms. *DC/Admit/Observation/Transfer Diagnosis at time of Disposition: Leg swelling Chest pain Qualifiers: Chest pain type: chest pain on breathing Qualified Code(s): R07.1 - Chest pain on breathing - Discharge Dispostion Disposition: HOME Condition at time of disposition: Improved Decision to Admit order: No - Referrals Referrals: Carla Jiménez MD [Primary Care Provider] - - Patient Instructions Printed Discharge Instructions: DI for Cellulitis -- Adult Additional Instructions: I suspect your leg swelling may be due to a mild infection Take your antibiotics as prescribed. Return if you have any fevers, worsneing shortness of breath, pain or other concerns. Follow up with Dr. Jiménez sunday or sunday for further evaluation. - Post Discharge Activity
[2018-06-07 17:04] LABS: ALBUMIN 3.1 g/dl (3.4-5.0); ALK PHOS 68 U/L (45-117); ANION GAP 7 MMOL/L (8-16); BILIRUBIN,TOTAL 0.2 mg/dL (0.2-1); BLOOD UREA NITROGEN 9 mg/dL (7-18); CALCIUM 8.5 mg/dL (8.5-10.1); CHLORIDE 103 mmol/L (98-107); CO2 28 mmol/L (21-32); CREATININE 0.8 mg/dL (0.55-1.3); GLUCOSE,RANDOM 134 mg/dL (74-106); SGOT/AST 14 U/L (15-37); SGPT/ALT 23 U/L (13-61); SODIUM 138 mmol/L (136-145); TOT PROT 6.7 g/dl (6.4-8.2)
[2018-06-07 17:43] LABS: PLATELET ESTIMATE ADEQUATE
[2018-06-07 21:01] VITALS: BP 138/86; PULSE 88; TEMP 98.5
[2018-06-07] MEDS ORDERED: CEPHALEXIN MONOHYDRATE 500 MG CAPSULE (UD) PO ONE (22:36)
[2018-06-07] MEDS ORDERED: CEPHALEXIN MONOHYDRATE 500 MG CAPSULE (UD) ONE (22:47)
--- NOTE | 2018-06-08 14:42 | EKG ---
Test Reason : Blood Pressure : / mmHG Vent. Rate : 097 BPM Atrial Rate : 097 BPM P-R Int : 148 ms QRS Dur : 102 ms QT Int : 368 ms P-R-T Axes : 047 014 001 degrees QTc Int : 467 ms NORMAL SINUS RHYTHM CANNOT RULE OUT ANTERIOR INFARCT , AGE UNDETERMINED ABNORMAL ECG WHEN COMPARED WITH ECG OF 09-MAY-2018 21:37, NO SIGNIFICANT CHANGE WAS FOUND Confirmed by Sky Hernandez MD ([id number]) on 06/08/2018 2:41:53 PM Referred By: Confirmed By:Sky Hernandez MD
== END 2018-06-07 22:54 | disposition home or self-care (01) ==
LOC: JER 13:25
PROC: 3E033NZ Introduction of Analgesics, Hypnotics, Sedatives into Peripheral Vein, Percutaneous Approach (ICD-10-PCS; principal; 2018-06-07)
PROC: 3E0F7GC Introduction of Other Therapeutic Substance into Respiratory Tract, Via Natural or Artificial Opening (ICD-10-PCS; 2018-06-07)
PROC: 3E0F7GC Introduction of Other Therapeutic Substance into Respiratory Tract, Via Natural or Artificial Opening (ICD-10-PCS; 2018-06-07)
DX: R07.9 Chest pain, unspecified (principal); R60.0 Localized edema; M79.89 Other specified soft tissue disorders; J45.909 Unspecified asthma, uncomplicated; I10 Essential (primary) hypertension; E11.9 Type 2 diabetes mellitus without complications; Z79.84 Long term (current) use of oral hypoglycemic drugs; Z21 Asymptomatic human immunodeficiency virus [HIV] infection status
CPT/HCPCS: 36415; 36600; 71045-TC-FY; 71275-TC; 80053; 82375; 82803; 83050; 84702; 85025; 85379; 93005; 93010; 93971-TC; 99282-25; J0131

== ENCOUNTER 2018-06-21 12:12 | Emergency (ER) | payer OTHER ==
[2018-06-21 12:21] VITALS: BP 148/82; PULSE 94; TEMP 97.7; BMI 57.9
--- NOTE | 2018-06-21 12:53 | PDOC ---
History of Present Illness - General Chief Complaint: Edema Stated Complaint: SWOLLEN LEGS Time Seen by Provider: 06/21/18 12:39 History Source: Patient Exam Limitations: No Limitations Past History - Travel Traveled outside of the country in the last 30 days: No Close contact w/someone who was outside of country & ill: No - Past Medical History Allergies/Adverse Reactions: Allergies Allergy/AdvReac Type Severity Reaction Status Date / Time omeprazole [From Prilosec] Allergy Mild Hives Verified 06/21/18 12:17 omeprazole magnesium Allergy Mild Hives Verified 06/21/18 12:17 [From Prilosec] Home Medications: Ambulatory Orders Elviteg/Cob/Emtri/Tenof Alafen [Genvoya (Non-Formulary)] 1 tab PO DAILY Budesonide/Formeterol Fumarate [SYMBICORT 160/4.5mcg -] 2 inh PO BID 02/20/17 Albuterol 0.083% Nebulizer Rach [Ventolin 0.083% Nebulizer Soln -] 1 amp NEB Q6H PRN #30 amp 05/14/18 Albuterol Sulfate Inhaler - [Ventolin HFA Inhaler -] 1 puff IH Q4H PRN #1 inhaler 05/14/18 Sitagliptin Phosphate [Januvia] 100 mg PO DAILY #30 tablet 05/14/18 Cephalexin Monohydrate [Keflex -] 500 mg PO Q6H #19 capsule 06/07/18 Anemia: Yes (IRON DEF) Asthma: Yes Cancer: No Cardiac Disorders: No CVA: No COPD: No CHF: No DVT: No Dementia: No Diabetes: Yes Dialysis: No GI Disorders: No Disorders: No HTN: Yes Hypercholesterolemia: Yes Kidney Stones: No Liver Disease: No Psychiatric Problems: No Seizures: No Thyroid Disease: No Lung CA: No Other medical history: sleep apnea - Surgical History Abdominal Surgery: Yes Appendectomy: No Cardiac Surgery: No Cholecystectomy: No Lung Surgery: No Neurologic Surgery: No Orthopedic Surgery: No - Family Disease History Family Disease History: Diabetes: Father, Heart Disease: Father - Reproductive History (#): 6 Para: 5 Cervical CA: No Dysfunctional Uterine Bleeding: Yes Ectopic : No Endometrial CA: No Polycystic Ovaries: No Therapeutic (s) & number: No Tubal Ligation: No Spontaneous : 1 - Immunization History Immunization Up to Date: Yes - Suicide/Smoking/Psychosocial Hx Smoking History: Never smoked Have you smoked in the past 12 months: No Hx Alcohol Use: No Drug/Substance Use Hx: No Substance Use Type: None Hx Substance Use Treatment: No Review of Systems - Review of Systems Able to Perform ROS?: Yes Comments:: 06/21/18 12:52 CONSTITUTIONAL: Absent: fever, chills, diaphoresis, generalized weakness, malaise, loss of appetite HEENT: Absent: rhinorrhea, nasal congestion, throat pain, throat swelling, difficulty swallowing, mouth swelling, ear pain, eye pain, visual Changes CARDIOVASCULAR: Absent: chest pain, loss of consciousness, palpitations, irregular heart rate, peripheral edema RESPIRATORY: Absent: cough, shortness of breath, dyspnea with exertion, orthopnea, wheezing, stridor, hemoptysis GASTROINTESTINAL: Absent: abdominal pain, abdominal distension, nausea, vomiting, diarrhea, constipation, melena, hematochezia GENITOURINARY: Absent: dysuria, frequency, urgency, hesitancy, hematuria, flank pain, genital pain MUSCULOSKELETAL: Absent: myalgia, arthralgia, joint swelling SKIN: Absent: rash, itching, pallor HEMATOLOGIC/IMMUNOLOGIC: Absent: easy bleeding, easy bruising, lymphadenopathy, frequent infections ENDOCRINE: Absent: unexplained weight gain, unexplained weight loss, heat intolerance, cold intolerance NEUROLOGIC: Absent: headache, focal weakness or paresthesias, dizziness, unsteady gait, seizure, mental status changes, bladder or bowel incontinence PSYCHIATRIC: Absent: anxiety, depression, suicidal or homicidal ideation, hallucinations. Is the patient limited Grenadian proficient: No *Physical Exam - Vital Signs Last Vital Signs Temp Pulse Resp BP Pulse Ox 97.7 F 94 H 20 148/82 95 06/21/18 12:17 06/21/18 12:17 06/21/18 12:17 06/21/18 12:17 06/21/18 12:17 - Physical Exam Comments: 06/21/18 12:52 GENERAL: Well developed, well nourished. Awake and alert. No acute distress. HEENT: Normocephalic, atraumatic. PERRLA, EOMI. No conjunctival pallor. Sclera are non- icteric. Moist mucous membranes. Oropharynx is clear. NECK: Supple. Full ROM. No JVD. Carotid pulses 2+ and symmetric, without bruits. No thyromegaly. No lymphadenopathy. CARDIOVASCULAR: Regular rate and rhythm. No murmurs, rubs, or gallops. Distal pulses are 2+ and symmetric. PULMONARY: No evidence of respiratory distress. Lungs clear to auscultation bilaterally. No wheezing, rales or rhonchi. ABDOMINAL: Soft. Non-tender. Non-distended. No rebound or guarding. No organomegaly. Normoactive bowel sounds. MUSCULOSKELETAL Normal range of motion at all joints. No bony deformities or tenderness. No CVA tenderness. EXTREMITIES: No cyanosis. No clubbing. No edema. No calf tenderness. SKIN: Warm and dry. Normal capillary refill. No rashes. No jaundice. NEUROLOGICAL: Alert, awake, appropriate. Cranial nerves 2-12 intact. No deficits to light touch and temperature in face, upper extremities and lower extremities. No motor deficits in the in face, upper extremities and lower extremities. Normoreflexic in the upper and lower extremities. Normal speech. Toes are down- going bilaterally. Gait is normal without ataxia. PSYCHIATRIC: Cooperative. Good eye contact. Appropriate mood and affect. Moderate Sedation - Procedure Monitoring Vital Signs: Procedure Monitoring Vital Signs Temperature 97.7 F 06/21/18 12:17 Pulse Rate 94 H 06/21/18 12:17 Respiratory Rate 20 06/21/18 12:17 Blood Pressure 148/82 06/21/18 12:17 O2 Sat by Pulse Oximetry (%) 95 06/21/18 12:17 ED Treatment Course - LABORATORY CBC & Chemistry Diagram: 06/21/18 13:00 06/21/18 13:00 *DC/Admit/Observation/Transfer Diagnosis at time of Disposition: Leg swelling - Discharge Dispostion Disposition: HOME Condition at time of disposition: Stable Decision to Admit order: No - Referrals Referrals: Carla Jiménez MD [Primary Care Provider] - - Patient Instructions Printed Discharge Instructions: DI for Edema Due to Venous Stasis Additional Instructions: Your ultrasounds were negative today for blood clots You most likely have venous stasis causing your swollen legs Keep your legs elevated at rest; wear compression stockings Follow up with your primary care doctor as scheduled Return to the ED for any new or worsening symptoms including increased leg pain , fever, shortness of breath, difficulty breathing, or if you have any changes in your symptoms - Post Discharge Activity Forms/Work/School Notes: Back to Work
[2018-06-21 13:16] LABS: BASO % 0.4 % (0-2.0); EOS % 0.6 % (0-4.5); HEMATOCRIT 34.9 % (32.4-45.2); HEMOGLOBIN 10.9 GM/dL (10.7-15.3); MCH 22.1 pg (25.7-33.7); MCHC 31.2 g/dl (32.0-36.0); MEAN CELL VOLUME 70.9 fl (80-96); MEAN PLT VOLUME 7.5 fl (7.5-11.1); MONO % 7.6 % (3.8-10.2); NEUT % 74.4 % (42.8-82.8); PLATELET COUNT 340 K/MM3 (134-434); RBC 4.93 M/mm3 (3.60-5.2); RDW 19.9 % (11.6-15.6); WHITE BLOOD COUNT 13.3 K/mm3 (4.0-10.0)
[2018-06-21 13:35] LABS: URINE APPEARANCE CLEAR; URINE BILIRUBIN NEGATIVE (<2.0 mg/dL); URINE COLOR YELLOW; URINE GLUCOSE (UA) NEGATIVE (NEGATIVE); URINE KETONE NEGATIVE (NEGATIVE); URINE LEUK ESTERASE NEGATIVE (NEGATIVE); URINE NITRITE NEGATIVE (NEGATIVE); URINE PROTEIN NEGATIVE (NEGATIVE); URINE UROBILINOGEN NEGATIVE mg/dL (0.2-1.0)
[2018-06-21 13:48] LABS: ALBUMIN 3.1 g/dl (3.4-5.0); ALK PHOS 71 U/L (45-117); ANION GAP 5 MMOL/L (8-16); BILIRUBIN,TOTAL 0.1 mg/dL (0.2-1); BLOOD UREA NITROGEN 8 mg/dL (7-18); CALCIUM 8.4 mg/dL (8.5-10.1); CHLORIDE 104 mmol/L (98-107); CO2 30 mmol/L (21-32); CREATININE 0.7 mg/dL (0.55-1.3); GLUCOSE,RANDOM 125 mg/dL (74-106); N-TERMINAL BNP 37.5 pg/ml (5-125); POTASSIUM 4.5 mmol/L (3.5-5.1); SGOT/AST 16 U/L (15-37); SGPT/ALT 20 U/L (13-61); SODIUM 139 mmol/L (136-145); TOT PROT 6.7 g/dl (6.4-8.2)
== END 2018-06-21 16:30 | disposition home or self-care (01) ==
LOC: JER 12:12
DX: I87.8 Other specified disorders of veins (principal); R60.0 Localized edema; E11.9 Type 2 diabetes mellitus without complications; Z79.84 Long term (current) use of oral hypoglycemic drugs; I10 Essential (primary) hypertension; E78.00 Pure hypercholesterolemia, unspecified; D50.9 Iron deficiency anemia, unspecified; J45.909 Unspecified asthma, uncomplicated; G47.39 Other sleep apnea; Z87.2 Personal history of diseases of the skin and subcutaneous tissue
CPT/HCPCS: 36415; 80053; 81003; 83880; 85025; 93970-TC; 99284-25

== ENCOUNTER 2019-03-03 10:10 | Emergency (ER) | payer OTHER ==
[2019-03-03 10:17] VITALS: BMI 63.6
--- NOTE | 2019-03-03 10:40 | PDOC ---
History of Present Illness - General Chief Complaint: Asthma Stated Complaint: ASTHMA ATTACK Time Seen by Provider: 03/03/19 10:17 - History of Present Illness Initial Comments: Ms. Meléndez is a 48 y/o female with PMH significant for asthma, DM, HIV, fibromylagia, presenting today with bilateral flank pain that started 1 week ago. Reports that when she came into the ED, she was wheezing and started on duonebs. In the ED, she is resting comfortably and saturating well on room air. She reports that she initially came to the ED for bilateral flank pain that started 1 week ago and radiates around the sides to the mid abdomen. Denies dysuria, but states that urination worsens the flank pain. Denies fever/chills. Reports mild shortness of breath on exertion, and states she has muscle spasms in the chest. Past History - Past Medical History Allergies/Adverse Reactions: Allergies Allergy/AdvReac Type Severity Reaction Status Date / Time omeprazole [From Prilosec] Allergy Mild Hives Verified 06/21/18 12:17 omeprazole magnesium Allergy Mild Hives Verified 06/21/18 12:17 [From Prilosec] Home Medications: Ambulatory Orders Elviteg/Cob/Emtri/Tenof Alafen [Genvoya (Non-Formulary)] 1 tab PO DAILY Budesonide/Formeterol Fumarate [SYMBICORT 160/4.5mcg -] 2 inh PO BID 02/20/17 Albuterol 0.083% Nebulizer Rach [Ventolin 0.083% Nebulizer Soln -] 1 amp NEB Q6H PRN #30 amp 05/14/18 Albuterol Sulfate Inhaler - [Ventolin HFA Inhaler -] 1 puff IH Q4H PRN #1 inhaler 05/14/18 Sitagliptin Phosphate [Januvia] 100 mg PO DAILY #30 tablet 05/14/18 Cephalexin Monohydrate [Keflex -] 500 mg PO Q6H #19 capsule 06/07/18 Anemia: Yes (IRON DEF) Asthma: Yes Cancer: No Cardiac Disorders: No CVA: No COPD: No CHF: No DVT: No Dementia: No Diabetes: Yes Dialysis: No GI Disorders: No Disorders: No HTN: Yes Hypercholesterolemia: Yes Kidney Stones: No Liver Disease: No Psychiatric Problems: No Seizures: No Thyroid Disease: No Lung CA: No - Surgical History Abdominal Surgery: Yes Appendectomy: No Cardiac Surgery: No Cholecystectomy: No Lung Surgery: No Neurologic Surgery: No Orthopedic Surgery: No - Reproductive History (#): 6 Para: 5 Cervical CA: No Dysfunctional Uterine Bleeding: Yes Ectopic : No Endometrial CA: No Polycystic Ovaries: No Therapeutic (s) & number: No Tubal Ligation: No Spontaneous : 1 - Immunization History Immunization Up to Date: Yes - Psycho Social/Smoking Cessation Hx Smoking History: Never smoked Have you smoked in the past 12 months: No Information on smoking cessation initiated: No Hx Alcohol Use: No Drug/Substance Use Hx: No Substance Use Type: None Hx Substance Use Treatment: No Review of Systems - Review of Systems Comments:: GENERAL/CONSTITUTIONAL: No fever or chills. No weakness._ HEAD, EYES, EARS, NOSE AND THROAT: No change in vision. No change in hearing. No sore throat._ CARDIOVASCULAR: No chest pain. Reports mild shortness of breath. RESPIRATORY: Denies cough, hemoptysis. GASTROINTESTINAL: No nausea, vomiting, diarrhea or constipation. Reports abdominal pain. GENITOURINARY: No dysuria, frequency, or change in urination. MUSCULOSKELETAL: No joint or muscle swelling or pain. No neck pain. Reports back pain. SKIN: No rash_ NEUROLOGIC: No headache, vertigo, loss of consciousness, or change in strength/ sensation._ ENDOCRINE: No increased thirst. No abnormal weight change_ HEMATOLOGIC/LYMPHATIC: No anemia, easy bleeding, or history of blood clots._ ALLERGIC/IMMUNOLOGIC: No hives or skin allergy._ *Physical Exam - Vital Signs Last Vital Signs Temp Pulse Resp BP Pulse Ox 99.4 F 89 16 112/94 96 03/03/19 10:13 03/03/19 10:13 03/03/19 10:13 03/03/19 10:13 03/03/19 10:13 - Physical Exam Comments: GENERAL: Awake, alert, and oriented to person/place/time, in no acute distress_ HEAD: No signs of trauma, normocephalic, atraumatic. EYES: PERRLA, EOMI, sclera anicteric, conjunctiva clear_ ENT: Hearing grossly normal, nares patent, oropharynx clear without exudates. No uvular deviation. Moist mucosa_ NECK: Normal ROM, supple, no lymphadenopathy, JVD, or masses_ LUNGS: No distress, speaks in full sentences, clear to auscultation bilaterally _ HEART: Regular rate and rhythm, normal S1 and S2, no murmurs appreciated, peripheral pulses normal and equal bilaterally._ ABDOMEN: Soft, obese, mild diffuse TTP, normoactive bowel sounds. No guarding, no rebound. No masses_ BACK: Mild TTP bilateral mid back and bilateral flank. EXTREMITIES: Normal inspection, Normal range of motion, no edema. No clubbing or cyanosis_ NEUROLOGICAL: Cranial nerves II through XII grossly intact. Normal speech, normal gait, no focal sensorimotor deficits _ SKIN: Warm, Dry, normal turgor, no rashes or lesions noted_ ED Treatment Course - LABORATORY CBC & Chemistry Diagram: 03/03/19 11:29 03/03/19 11:29 Medical Decision Making - Medical Decision Making 48F hx of fibromyalgia here with 1 week of back pain. Started wheezing in the ED waiting room and was started on duonebs. At bedside pt is resting comfortably and saturates well on room air at 99%. No dysuria, no fever, no nausea/vomiting. DDx is broad and includes fibromyalgia flare vs UTI. -UA/UC/UPreg -CXR 03/03/19 1130 Labs reviewed and wnl except for mildly elevated WBC count. 03/03/19 1200 UA reviewed and does not appear to show signs of UTI. 03/03/19 14:53 CXR shows no acute intrathoracic process. Pt reassessed. Reports that the pain has moderately improved. Plan to d/c and f/ u PCP. Patient verbalized agreement and understanding of the plan. Discharge - Discharge Information Problems reviewed: Yes Clinical Impression/Diagnosis: Back pain Qualifiers: Back pain location: back pain in other location Chronicity: chronic Qualified Code(s): M54.9 - Dorsalgia, unspecified Condition: Stable Disposition: HOME - Admission No - Follow up/Referral Referrals: Carla Jiménez MD [Primary Care Provider] - - Patient Discharge Instructions Additional Instructions: Please make a follow up appointment with your primary care physician Dr. Jiménez. If you experience any new, worsening or concerning symptoms, including weakness or loss of sensation, severe pain on urination, fever, nausea, vomiting, or any other concerns, please return to the emergency department. - Post Discharge Activity
[2019-03-03] MEDS ORDERED: ACETAMINOPHEN 325 MG TABLET (FP) PO ONE (11:11)
[2019-03-03] MEDS ORDERED: ACETAMINOPHEN 325 MG TABLET (FP) ONE (11:14)
[2019-03-03 12:21] LABS: BASO % 0.9 % (0-2.0); EOS % 0.8 % (0-4.5); HEMATOCRIT 38.4 % (32.4-45.2); LYMPH % 21.2 % (8-40); MCH 22.2 pg (25.7-33.7); MCHC 31.3 g/dl (32.0-36.0); MEAN CELL VOLUME 70.9 fl (80-96); MEAN PLT VOLUME 8.1 fl (7.5-11.1); MONO % 4.6 % (3.8-10.2); NEUT % 72.5 % (42.8-82.8); PLATELET COUNT 366 K/MM3 (134-434); RBC 5.42 M/mm3 (3.60-5.2); WHITE BLOOD COUNT 11.9 K/mm3 (4.0-10.0)
[2019-03-03 12:23] LABS: EPI CELLS 8.3 /HPF (0-5/HPF); HYALINE CASTS 9 /lpf (0-8); PH,URINE 5.5 (5.0-8.0); URINE APPEARANCE CLOUDY; URINE BACTERIA 147.1 /hpf (NEGATIVE); URINE BILIRUBIN NEGATIVE (NEGATIVE); URINE COLOR YELLOW; URINE GLUCOSE (UA) NEGATIVE (NEGATIVE); URINE KETONE NEGATIVE (NEGATIVE); URINE LEUK ESTERASE TRACE (NEGATIVE); URINE NITRITE NEGATIVE (NEGATIVE); URINE PROTEIN NEGATIVE (NEGATIVE); URINE UROBILINOGEN 0.2 mg/dL (0.2-1.0); URINE WBC 1 /hpf (0-5)
[2019-03-03 12:40] LABS: ALBUMIN 3.4 g/dl (3.4-5.0); BILIRUBIN,TOTAL 0.2 mg/dL (0.2-1); BLOOD UREA NITROGEN 7.5 mg/dL (7-18); CALCIUM 8.9 mg/dL (8.5-10.1); CREATININE 0.8 mg/dL (0.55-1.3); POTASSIUM 4.4 mmol/L (3.5-5.1)
[2019-03-03 14:26] VITALS: BP 138/90; PULSE 77; TEMP 97.8
--- NOTE | 2019-03-05 15:41 | PDOC ---
Documentation entered by Dioni Zuleta SCRIBE, acting as scribe for Nhan Lackey MD. Nhan Lackey MD: This documentation has been prepared by the Song mendoza Daniel, SCRIBE, under my direction and personally reviewed by me in its entirety. I confirm that the documentation accurately reflects all work, treatment, procedures, and medical decision making performed by me. Attending Attestation - Resident Resident Name: Sky Ontiveros - ED Attending Attestation I have performed the following: I have examined & evaluated the patient, The case was reviewed & discussed with the resident, I agree w/resident's findings & plan, Exceptions are as noted - HPI HPI: 03/03/19 11:09 The patient is a 48 year old female with a past medical history of asthma, anemia, diabetes, HIV, and fibromyalgia here today for evaluation of low back pain. The patient reports that she has had 1 week of bilateral low back pain that radiates across her flanks to her abdomen and is worse with urination. She also notes recent shortness of breath which she states is caused by muscle spasms in her chest. Patient was noted to be wheezing in triage and was given duonebs. Patient denies headache, lightheadedness. Denies fever, chills. Denies chest pain. Denies nausea, vomiting, diarrhea. Denies urinary symptoms. Allergies: omeprazole, omeprazole magnesium PCP: Carla Jiménez GI: Saurabh Lawler - Physicial Exam PE: 03/03/19 11:21 GENERAL: The patient is awake, alert, and fully oriented, morbidly obese HEAD: Normocephalic, atraumatic. EYES: extraocular movements intact, sclera anicteric, conjunctiva clear. ENT: Normal voice, Moist mucous membranes. NECK: Normal range of motion, supple LUNGS: Breath sounds equal, clear to auscultation bilaterally. No wheezes, no rhonchi, no rales. no acute respiratory distress HEART: Regular rate and rhythm, normal S1 and S2 without murmur, rub or gallop, ABDOMEN: Soft, mild diffuse abdominal tenderness worse in the supraumbilical region, no rashes, no CVA tenderness, no rebound or guarding EXTREMITIES: Normal range of motion, no edema. NEUROLOGICAL: No facial assymetry, Normal speech, moving all 4 extremities spontaneously and symmetrically PSYCH: Normal mood, normal affect. SKIN: Warm, Dry, normal turgor, - Medical Decision Making 03/03/19 11:04 48y F hx of asthma, dm, HIV (HAART, CD4 900) presents with b/l flank pain x 1 week radiatig to her anterior abodmen without associated hematyria, dysuria. Patient does note some foul-smelling urine, endorses, lower back pain that increases when she urinates. Patient notes that the pain in her back in her side increases when she pushes on it. Differential for the patient's symptoms are wide and nonspecific -consider possible pneumonia, asthma exacerbation, diverticulitis, pancreatitis, pyelonephritis, UTI, exacerbation of her fibromyalgia. We will give the patient Tylenol and will obtain blood work, UA, chest x-ray, EKG. Will reassess 03/03/19 15:39 Pts results were reviwed pt feeling improved, ua not cw uti - culture sent will dc with pmd fu return precautions were discussed
== END 2019-03-03 15:08 | disposition home or self-care (01) ==
LOC: JER 10:10
DX: M54.89 Other dorsalgia (principal); D50.9 Iron deficiency anemia, unspecified; J45.909 Unspecified asthma, uncomplicated; I10 Essential (primary) hypertension; E11.9 Type 2 diabetes mellitus without complications; Z79.84 Long term (current) use of oral hypoglycemic drugs; E78.00 Pure hypercholesterolemia, unspecified; M79.7 Fibromyalgia; Z21 Asymptomatic human immunodeficiency virus [HIV] infection status; Z88.8 Allergy status to other drugs, medicaments and biological substances
CPT/HCPCS: 36415; 71046-TC-FY; 80053; 81003; 83690; 84703; 85025; 87086; 99283-25

== ENCOUNTER 2019-03-25 12:06 | Inpatient (IN) | payer OTHER ==
--- NOTE | 2019-03-25 12:28 | PDOC ---
History of Present Illness - General History Source: Patient - History of Present Illness Presenting Symptoms: Chest Pain, Nausea, Short of Breath, Vomiting <Crow Simmons - Last Filed: 03/25/19 18:19> <Reese Quan - Last Filed: 03/31/19 07:15> - General Chief Complaint: Chest Pain Stated Complaint: CHEST PAIN/ SOB Time Seen by Provider: 03/25/19 12:17 Past History - Past Medical History Anemia: Yes (IRON DEF) Asthma: Yes Cancer: No Cardiac Disorders: No CVA: No COPD: No CHF: No DVT: No Dementia: No Diabetes: Yes Dialysis: No GI Disorders: No Disorders: No HTN: Yes Hypercholesterolemia: Yes Kidney Stones: No Liver Disease: No Psychiatric Problems: No Seizures: No Thyroid Disease: No Lung CA: No - Surgical History Abdominal Surgery: Yes Appendectomy: No Cardiac Surgery: No Cholecystectomy: No Lung Surgery: No Neurologic Surgery: No Orthopedic Surgery: No - Reproductive History (#): 6 Para: 5 Cervical CA: No Dysfunctional Uterine Bleeding: Yes Ectopic : No Endometrial CA: No Polycystic Ovaries: No Therapeutic (s) & number: No Tubal Ligation: No Spontaneous : 1 - Immunization History Immunization Up to Date: Yes - Psycho Social/Smoking Cessation Hx Smoking History: Never smoked Have you smoked in the past 12 months: No Hx Alcohol Use: No Drug/Substance Use Hx: No Substance Use Type: None Hx Substance Use Treatment: No <Crow Simmons - Last Filed: 03/25/19 18:19> <Reese Quan - Last Filed: 03/31/19 07:15> - Past Medical History Allergies/Adverse Reactions: Allergies Allergy/AdvReac Type Severity Reaction Status Date / Time omeprazole magnesium Allergy Mild Hives Verified 06/21/18 12:17 [From [facility]] Home Medications: Ambulatory Orders Elviteg/Cob/Emtri/Tenof Alafen [Genvoya (Non-Formulary)] 1 tab PO DAILY Budesonide/Formeterol Fumarate [SYMBICORT 160/4.5mcg -] 2 inh PO BID 02/20/17 Albuterol 0.083% Nebulizer Rach [Ventolin 0.083% Nebulizer Soln -] 1 amp NEB Q6H PRN #30 amp 05/14/18 Albuterol Sulfate Inhaler - [Ventolin HFA Inhaler -] 1 - 2 inh PO Q4H #1 inhaler 03/29/19 Montelukast Na [Singulair -] 10 mg PO HS #30 tablet 03/29/19 Prednisone See Taper PO DAILY #30 tablet 03/29/19 Sitagliptin Phosphate [Januvia] 100 mg PO DAILY #30 tablet 03/29/19 Cardiac Specific PMH - Complaint Specific PMHX Pacemaker: No <Crow Simmons - Last Filed: 03/25/19 18:19> Review of Systems - Review of Systems Constitutional: No: Chills, Fever Respiratory: Yes: Shortness of Breath, Wheezing. No: Cough Cardiac (ROS): Yes: Chest Pain. No: Lightheadedness, Palpitations, Syncope <Crow Simmons - Last Filed: 03/25/19 18:19> *Physical Exam - Physical Exam General Appearance: Yes: Appropriately Dressed. No: Apparent Distress HEENT: positive: Normal Voice. negative: Scleral Icterus (R), Scleral Icterus ( L) Neck: positive: Supple. negative: Lymphadenopathy (R), Lymphadenopathy (L) Respiratory/Chest: positive: Other (audible wheezing, no clear lung sounds heard ). negative: Respiratory Distress Cardiovascular: positive: Regular Rate, S1, S2 Gastrointestinal/Abdominal: positive: Soft. negative: Tender Extremity: positive: Tender (minimal ttp throughout LLE, no sig erythema noted) . negative: Pedal Edema, Swelling Integumentary: positive: Dry, Warm Neurologic: positive: Fully Oriented, Alert, Normal Mood/Affect <Crow Simmons - Last Filed: 03/25/19 18:19> - Vital Signs Last Vital Signs Temp Pulse Resp BP Pulse Ox 97.8 F 86 19 123/63 96 03/29/19 10:00 03/29/19 10:00 03/29/19 10:00 03/29/19 10:00 03/29/19 09:00 Heart Score/ECG Review - History History: Highly suspicious - Electrocardiogram EKG: Normal - Age Age: 45-65 - Risk Factors Risk Factors Heart Score: Yes Hx Obesity Based on the list above the patient has:: 1-2 risk factors - Troponin Troponin: </= normal limit - Score Heart Score - Total: 4 <Crow Simmons - Last Filed: 03/25/19 18:19> ED Treatment Course - LABORATORY CBC & Chemistry Diagram: 03/25/19 11:00 03/25/19 11:00 <Margaret SimmonsShen - Last Filed: 03/25/19 18:19> - LABORATORY CBC & Chemistry Diagram: 03/29/19 06:50 03/29/19 06:50 <Reese Quan - Last Filed: 03/31/19 07:15> - ADDITIONAL ORDERS Additional order review: 03/25/19 11:00 RBC 5.13 MCV 72.1 L MCHC 30.8 L RDW 20.0 H MPV 7.7 Neutrophils % 71.1 Lymphocytes % 21.6 Monocytes % 5.4 Eosinophils % 0.8 Basophils % 1.1 - Medications Given in the ED: ED Medications Discontinued Medications Generic Name Dose Route Start Last Admin Trade Name Freq PRN Reason Stop Dose Admin Acetaminophen 650 mg 03/26/19 09:40 03/26/19 09:41 Tylenol - PO 03/26/19 09:41 650 mg ONCE ONE Administration Albuterol/Ipratropium 1 amp 03/25/19 12:30 03/25/19 13:27 Duoneb - NEB 03/25/19 13:16 1 amp Q15M KAREN Administration Albuterol/Ipratropium 1 amp 03/25/19 15:30 03/25/19 21:38 Duoneb - NEB 03/25/19 16:16 1 amp Q15M KAREN Administration Albuterol/Ipratropium 1 amp 03/25/19 20:00 03/29/19 11:19 Duoneb - NEB 1 amp RQID KAREN Administration Amiodarone HCl 150 mg 03/26/19 01:33 03/26/19 01:33 Cordarone Injection - IVPUSH 03/26/19 01:34 150 mg ONCE ONE Administration Aspirin 325 mg 03/25/19 12:29 03/25/19 12:45 Asa - PO 03/25/19 12:30 325 mg ONCE ONE Administration Budesonide/Formoterol Fumarate 2 puff 03/25/19 22:00 03/29/19 10:06 Symbicort 160/4.5mcg - IH 2 puff BID KAREN Administration Elvitegravir/Cobicis/Emtricit/Tenof 1 tab 03/26/19 10:00 03/29/19 11:35 Genvoya (Non-Formulary) PO 1 tab DAILY KAREN Administration Heparin Sodium (Porcine) 5,000 unit 03/26/19 22:00 03/29/19 06:57 Heparin - SQ Not Given TID KAREN Azithromycin 500 mg in 250 mls @ 250 mls/hr 03/25/19 19:00 03/26/19 09:14 Zithromax 500mg Ivpb (Pre-Docked) IVPB 03/28/19 18:59 250 mls/hr DAILY KAREN Administration Amiodarone HCl/Dextrose 150 mg in 100 mls @ 600 mls/hr 03/26/19 01:40 07:19 Nexterone 150 Mg/100 Ml Bag IVPB 03/26/19 01:49 Not Given ONCE ONE Protocol Amiodarone HCl/Dextrose 360 mg in 200 mls @ 16.667 mls/hr 03/26/19 01:45 06:32 Nexterone 360 Mg/200 Ml Bag IVPB Not Given ASDIR KAREN Protocol 0.5 MG/MIN Amiodarone HCl/Dextrose 360 mg in 200 mls @ 33.333 mls/hr 03/26/19 01:40 07:19 Nexterone 360 Mg/200 Ml Bag IVPB 03/26/19 07:39 Not Given ONCE ONE Protocol 1 MG/MIN Insulin Aspart 0 vial 03/25/19 22:00 03/28/19 11:58 Novolog Vial Sliding Scale - SQ Not Given ACHS [facility] Protocol Insulin Aspart 1 vial 03/28/19 11:39 03/29/19 11:44 Novolog Vial Sliding Scale - SQ 6 units ACHS KAREN Administration Protocol Magnesium Sulfate 2 gm 03/25/19 15:23 03/25/19 15:35 Magnesium Sulfate IVPB 03/25/19 15:24 2 gm ONCE ONE Administration Methylprednisolone Sodium Succinate 125 mg 03/25/19 12:30 03/25/19 12:45 Solu-Medrol - IVPUSH 03/25/19 12:31 125 mg ONCE ONE Administration Methylprednisolone Sodium Succinate 60 mg 03/25/19 19:00 03/28/19 09:39 Solu-Medrol - IVPUSH 60 mg Q8H-IV KAREN Administration Methylprednisolone Sodium Succinate 40 mg 03/28/19 18:00 03/29/19 10:03 Solu-Medrol - IVPUSH 40 mg Q8H-IV KAREN Administration Montelukast Sodium 10 mg 03/26/19 22:00 03/28/19 21:51 Singulair - PO 10 mg HS KAREN Administration Potassium Phos/Sodium Phos 1 packet 03/26/19 17:09 03/26/19 17:36 Phos-Nak Packet - PO 03/26/19 17:10 1 packet ONCE ONE Administration Medical Decision Making <Margaret SimmonsShen - Last Filed: 03/25/19 18:19> <Reese Quan - Last Filed: 03/31/19 07:15> - Medical Decision Making 03/25/19 12:22 48 yo F, morbidly obesed (BMI 62), HTN, DM, HIV on meds, cd4 800s, UD VL, anemia , asthma, s/p admission for same 05/18, uses rescue inhalers, symbicort and nebs , here w/ SS CP radiating to L arm and jaw that started 2 nights ago, feels like spasms and pressure, on and off, 11/06, worse w/ laying down. Also c/o SOB when ambulating. Had 2 e/o n/v this am. Denies diaphoresis but feels clammy. No h/o similar sxs. Had stress test this yr which was normal per pt but states she was told "I have a sluggish heart" by her outside fruit grader operator See exam CP Concerning story for ACS vs asthma exacerbation given sig audible wheeze vs new onset CHF vs PNA, les likely PE or dissection Reports neg stress test earlier this year Stable w/ clear chest/lungs here -dose of asa in ED -ekg -cxr -will try to reach out to pt's cards, Dr Castaneda ([phone]) 03/25/19 13:03 03/25/19 15:24 EKG and labs unremarkable. On reassessment now, patient still with audible wheeze though mildly improved. Still unable to hear good breath sounds throughout lung field. Patient now reports that she has had some vague LLE pain and swelling for the past couple days. Based on chart review, pt c/o b/l LE pain, L>R w/ neg dopplers. States pain worse to L leg now. No fever or chills. Denies trauma. CXR and BNP in progress. Will give dose of mag and admit for asthma exacerbation. Will need to be continue w/u for ACS (heart score 4). Will discuss possible tele bed w/ admitting team. I left message for patient's fruit grader operator Dr Castaneda but never received call back 03/25/19 16:39 BNP 74. CXR w/ no obvious acute pathology. Pt currently admitted to tele for asthma exacerbation and r/o ACS. (Crow Simmons) 03/31/19 07:15 I reviewed the case of the mid-level practitioner and was available for consultation while in the emergency department (Reese Quan) Discharge - Discharge Information Problems reviewed: Yes - Admission Yes <Crow Simmons - Last Filed: 03/25/19 18:19> <Reese Quan - Last Filed: 03/31/19 07:15> - Discharge Information Clinical Impression/Diagnosis: Chest pain, Asthma exacerbation attacks, Leg swelling Condition: Improved Disposition: HOME
[2019-03-25] MEDS ORDERED: ASPIRIN 325 MG TABLET PO ONE (12:29)
[2019-03-25] MEDS ORDERED: methylPREDNISolone NA SUCC 125 MG/2 ML VIAL IVPUSH ONE (12:30)
[2019-03-25] MEDS ORDERED: ALBUTEROL SO4 2.5/IPRATROPIUM 0.5 INH SOL 3 ML VIAL.NEB. NEB ONE ×7 (12:41→21:47)
[2019-03-25] MEDS ORDERED: ASPIRIN 81 MG CHEWABLE TABLETS ONE (12:41)
[2019-03-25] MEDS ORDERED: methylPREDNISolone NA SUCC 125 MG/2 ML VIAL ONE (12:41)
[2019-03-25] MEDS: ALBUTEROL SO4 2.5/IPRATROPIUM 0.5 INH SOL 3 ML VIAL.NEB. NEB SCH ×8 (12:45→21:56)
[2019-03-25 13:24] LABS: BASO % 1.1 % (0-2.0); EOS % 0.8 % (0-4.5); HEMOGLOBIN 11.4 GM/dL (10.7-15.3); LYMPH % 21.6 % (8-40); MCH 22.2 pg (25.7-33.7); MCHC 30.8 g/dl (32.0-36.0); MEAN CELL VOLUME 72.1 fl (80-96); MEAN PLT VOLUME 7.7 fl (7.5-11.1); MONO % 5.4 % (3.8-10.2); NEUT % 71.1 % (42.8-82.8); PLATELET COUNT 412 K/MM3 (134-434); RBC 5.13 M/mm3 (3.60-5.2); WHITE BLOOD COUNT 10.9 K/mm3 (4.0-10.0)
[2019-03-25 14:01] LABS: ALBUMIN 3.3 g/dl (3.4-5.0); ALK PHOS 75 U/L (45-117); ANION GAP 6 MMOL/L (8-16); BILIRUBIN,TOTAL 0.4 mg/dL (0.2-1); BLOOD UREA NITROGEN 11.6 mg/dL (7-18); CALCIUM 8.8 mg/dL (8.5-10.1); CHLORIDE 106 mmol/L (98-107); CO2 26 mmol/L (21-32); CREATININE 0.8 mg/dL (0.55-1.3); GLUCOSE,RANDOM 149 mg/dL (74-106); POTASSIUM 4.5 mmol/L (3.5-5.1); SGOT/AST 16 U/L (15-37); SGPT/ALT 15 U/L (13-61); SODIUM 138 mmol/L (136-145)
[2019-03-25] MEDS ORDERED: MAGNESIUM SULF 50% (8.12 MEQ/2 ML-1 GM VIAL) IVPB ONE (15:23)
[2019-03-25] MEDS ORDERED: MAGNESIUM 1GM/D5W - 2 GM/200 ML IVPB IVPB ONE (15:39)
--- NOTE | 2019-03-25 15:58 | HP ---
CHIEF COMPLAINT: Chest Pain+ SOB PCP: HISTORY OF PRESENT ILLNESS: Pt is a 48 y/o F with a significant past medical history of recurrent asthma exacerbations and hospitalizations, (never intubated), DM, HTN, morbid obesity, PUMA, and HIV (on genvoya) who presented to [facility] [place] due to chest pain and shortness of breath. Pt endorses she has been experiencing chest pain for 2-3 days. Pain as well as shortness of breath is exacerbated when lying supine;also endorses numbness and tingling in her left arm. chest pain is described as "heavy" and radiates to under her left breast. Also states pain can sometimes radiate to her stomach and back and is described as feeling like " a muscle spasm". Back pain is a 7/10 in pain severity and is constant. Has vomited twice since the onset of her symptoms. Also endorses chills. PMH -As above SurgHx- C Section 1989 FH- Mother HTN, DM, Diverticulitis, IBS, Fibromyalgia, Lupus ER course was notable for: (1) 1st trop negative. (2) CXR Clear (3) Given Solumedrol 125 once Allergies omeprazole magnesium [From Prilosec] Allergy (Mild, Verified 06/21/18 12:17) Hives HOME MEDICATIONS: Home Medications Medication Instructions Recorded Elviteg/Cob/Emtri/Tenof Alafen 1 tab PO DAILY 02/19/17 [Genvoya (Non-Formulary)] Budesonide/Formeterol Fumarate 2 inh PO BID 02/20/17 [SYMBICORT 160/4.5mcg -] Albuterol 0.083% Nebulizer Rach 1 amp NEB Q6H PRN #30 amp 05/14/18 [Ventolin 0.083% Nebulizer Soln -] Albuterol Sulfate Inhaler - 1 puff IH Q4H PRN #1 inhaler 05/14/18 [Ventolin HFA Inhaler -] Sitagliptin Phosphate [Januvia] 100 mg PO DAILY #30 tablet 05/14/18 Cephalexin Monohydrate [Keflex -] 500 mg PO Q6H #19 capsule 06/07/18 REVIEW OF SYSTEMS CONSTITUTIONAL: Absent: fever, chills, diaphoresis, generalized weakness, malaise, loss of appetite, weight change HEENT: Absent: rhinorrhea, nasal congestion, throat pain, throat swelling, difficulty swallowing, mouth swelling, ear pain, eye pain, visual changes CARDIOVASCULAR: present chest pain, RESPIRATORY: present shortness of breath, dyspnea with exertion, orthopnea, wheezing GASTROINTESTINAL: Absent: abdominal pain, abdominal distension, nausea, vomiting, diarrhea, constipation, melena, hematochezia GENITOURINARY: Absent: dysuria, frequency, urgency, hesitancy, hematuria, flank pain, genital pain MUSCULOSKELETAL: Absent: myalgia, arthralgia, joint swelling, back pain, neck pain SKIN: Absent: rash, itching, pallor HEMATOLOGIC/IMMUNOLOGIC: Absent: easy bleeding, easy bruising, lymphadenopathy, frequent infections ENDOCRINE: Absent: unexplained weight gain, unexplained weight loss, heat intolerance, cold intolerance NEUROLOGIC: Absent: headache, focal weakness or paresthesias, dizziness, unsteady gait, seizure, mental status changes, bladder or bowel incontinence PSYCHIATRIC: Absent: anxiety, depression, suicidal or homicidal ideation, hallucinations. PHYSICAL EXAMINATION Vital Signs - 24 hr 03/25/19 03/25/19 12:06 13:25 Temperature 97.9 F Pulse Rate 78 Pulse Rate [ 88 Apical] Respiratory 20 Rate Blood Pressure 141/86 Blood Pressure 147/85 [Left Arm] O2 Sat by Pulse 95 100 Oximetry (%) GENERAL: Obese, Tachypneic HEAD: Normal with no signs of trauma. EYES: EOMI Sclera Clear EARS, NOSE, THROAT: MMM NECK: Normal range of motion, supple without lymphadenopathy, JVD, or masses. LUNGS: Poor air entry, difficult to appreciate breath sounds HEART: Tachycardic S1S2 ABDOMEN: Obese Nondistended and nontender MUSCULOSKELETAL: Normal range of motion at all joints. No bony deformities or tenderness. No CVA tenderness. UPPER EXTREMITIES: 2+ pulses, warm, well-perfused. No cyanosis. No clubbing. No peripheral edema. LOWER EXTREMITIES: No significant pedel edema NEUROLOGICAL: Cranial nerves II-XII intact. Normal speech. PSYCHIATRIC: Cooperative. Good eye contact. Appropriate mood and affect. SKIN: Warm, dry, normal turgor, no rashes or lesions noted, normal capillary refill. Laboratory Results - last 24 hr 03/25/19 03/25/19 03/25/19 11:00 11:00 11:00 WBC 10.9 H RBC 5.13 Hgb 11.4 Hct 37.0 MCV 72.1 L MCH 22.2 L MCHC 30.8 L RDW 20.0 H Plt Count 412 MPV 7.7 Absolute Neuts (auto) 7.8 Neutrophils % 71.1 Lymphocytes % 21.6 Monocytes % 5.4 Eosinophils % 0.8 Basophils % 1.1 Nucleated RBC % 0 Sodium 138 Potassium 4.5 Chloride 106 Carbon Dioxide 26 Anion Gap 6 L BUN 11.6 Creatinine 0.8 Est GFR (CKD-EPI)AfAm 102.47 Est GFR (CKD-EPI)NonAf 88.41 Random Glucose 149 H Calcium 8.8 Total Bilirubin 0.4 AST 16 ALT 15 Alkaline Phosphatase 75 Creatine Kinase 88 Troponin I < 0.02 Total Protein 7.0 Albumin 3.3 L Urine HCG, Qual Negative ASSESSMENT/PLAN: Pt is a 48 y/o F with a significant past medical history of recurrent asthma exacerbations and hospitalizations, (never intubated), DM, HTN, morbid obesity, PUMA, and HIV (on genvoya) who presented to [facility] [place] due to chest pain and shortness of breath. # Chest Pain. R/o ACS -1st Trop negative. Trend -EKG-->nl intervals, nl rhythm. No ST-T wave abnormalities appreciated. #Asthma Exacerbation -Received Solumedrol 125 in ED -Will place on Solumedrol 60 Q8H -Resume home Singulair and Symbicort -Peak Flow -Pulm Consult #HIV -Continue Genvoya # DM Will hold Jardiance. Will place on ISS. #FEN No fluids Monitor Electrolytes Sodium Controlled Diet #DVT ppx Hep Sq TID #Dispo -Tele Visit type - Emergency Visit Emergency Visit: Yes ED Registration Date: 03/25/19 Care time: The patient presented to the Emergency Department on the above date and was hospitalized for further evaluation of their emergent condition. - New Patient This patient is new to me today: Yes Date on this admission: 03/25/19 - Critical Care Critical Care patient: No ATTENDING PHYSICIAN STATEMENT I saw and evaluated the patient. I reviewed the resident's note and discussed the case with the resident. I agree with the resident's findings and plan as documented. SUBJECTIVE: OBJECTIVE: ASSESSMENT AND PLAN:
[2019-03-25 16:24] LABS: N-TERMINAL BNP 74.3 pg/ml (5-125)
--- NOTE | 2019-03-25 16:52 | PN ---
Teaching Attending Note Name of Resident: Callum Mckee ATTENDING PHYSICIAN STATEMENT I saw and evaluated the patient. I reviewed the resident's note and discussed the case with the resident. I agree with the resident's findings and plan as documented. SUBJECTIVE: Patient is a 48yo [place]ale with pmhx of asthma, hiv, presenteed with shortness of breath and cough today.Nom fever or chills. OBJECTIVE: Vital Signs Temperature 97.9 F 03/25/19 12:06 Pulse Rate 88 03/25/19 13:25 Respiratory Rate 20 03/25/19 13:25 Blood Pressure 147/85 03/25/19 13:25 O2 Sat by Pulse Oximetry (%) 100 03/25/19 13:25 GENERAL: The patient is awake, alert, and fully oriented, in no acute distress. HEAD: Normal with no signs of trauma. EYES: PERRL, extraocular movements intact, sclera anicteric, conjunctiva clear. ENT: Ears normal, oropharynx clear without exudates, moist mucous membranes. NECK: Trachea midline, full range of motion, supple. LUNGS: decreased air entery bl , minimal wheezing , no crackles, no accessory muscle use. HEART: Regular rate and rhythm, S1, S2 without murmur, rub or gallop. ABDOMEN: Soft, nontender, nondistended, normoactive bowel sounds, no guarding, no rebound, no hepatosplenomegaly, no masses. EXTREMITIES: 2+ pulses, warm, well-perfused, no edema. NEUROLOGICAL: Cranial nerves II through XII grossly intact. Normal speech, gait not observed. PSYCH: Normal mood, normal affect. SKIN: Warm, dry, normal turgor, no rashes or lesions noted CBCD WBC 10.9 K/mm3 (4.0-10.0) H 03/25/19 11:00 RBC 5.13 M/mm3 (3.60-5.2) 03/25/19 11:00 Hgb 11.4 GM/dL (10.7-15.3) 03/25/19 11:00 Hct 37.0 % (32.4-45.2) 03/25/19 11:00 MCV 72.1 fl (80-96) L 03/25/19 11:00 MCHC 30.8 g/dl (32.0-36.0) L 03/25/19 11:00 RDW 20.0 % (11.6-15.6) H 03/25/19 11:00 Plt Count 412 K/MM3 (134-434) 03/25/19 11:00 MPV 7.7 fl (7.5-11.1) 03/25/19 11:00 CMP Sodium 138 mmol/L (136-145) 03/25/19 11:00 Potassium 4.5 mmol/L (3.5-5.1) 03/25/19 11:00 Chloride 106 mmol/L (98-107) 03/25/19 11:00 Carbon Dioxide 26 mmol/L (21-32) 03/25/19 11:00 Anion Gap 6 MMOL/L (8-16) L 03/25/19 11:00 BUN 11.6 mg/dL (7-18) 03/25/19 11:00 Creatinine 0.8 mg/dL (0.55-1.3) 03/25/19 11:00 Random Glucose 149 mg/dL (74-106) H 03/25/19 11:00 Calcium 8.8 mg/dL (8.5-10.1) 03/25/19 11:00 Total Bilirubin 0.4 mg/dL (0.2-1) 03/25/19 11:00 AST 16 U/L (15-37) 03/25/19 11:00 ALT 15 U/L (13-61) 03/25/19 11:00 Alkaline Phosphatase 75 U/L (45-117) 03/25/19 11:00 Total Protein 7.0 g/dl (6.4-8.2) 03/25/19 11:00 Albumin 3.3 g/dl (3.4-5.0) L 03/25/19 11:00 CARDIAC ENZYMES Creatine Kinase 88 U/L (26-192) 03/25/19 11:00 Troponin I < 0.02 ng/ml (0.00-0.05) 03/25/19 11:00 Home Medications Medication Instructions Recorded Elviteg/Cob/Emtri/Tenof Alafen 1 tab PO DAILY 02/19/17 [Genvoya (Non-Formulary)] Budesonide/Formeterol Fumarate 2 inh PO BID 02/20/17 [SYMBICORT 160/4.5mcg -] Albuterol 0.083% Nebulizer Rach 1 amp NEB Q6H PRN #30 amp 05/14/18 [Ventolin 0.083% Nebulizer Soln -] Albuterol Sulfate Inhaler - 1 puff IH Q4H PRN #1 inhaler 05/14/18 [Ventolin HFA Inhaler -] CXR: reviewed EKG: Qtc 476 ASSESSMENT AND PLAN: Patient is a 48yo female with hx of Asthma, HIV, anemia who presented with SOB and admitted for exacerbation of asthma . # Acute Asthma exacerbation . peak flow , Solu MEdrol 60mg IV q8h will continue , pulmonary on the case. cont ALbuterol Nebs QID , and PRN ; Symbicort, daily Peak flow . continue Oxygen for now, Bipap prn. # New onset DM: On Steroids will monitor closely; SSI now ,on oral medications at home. #HIV : cont Genvoya # Morbid obesity; weight management, surgical consult as outpatient DVT Px: SCDs, early ambulation
[2019-03-25] MEDS ORDERED: ALBUTEROL SO4 0.5 % INH SOLN 2.5 MG/0.5 ML VIAL.NEB. NEB PRN (18:54)
[2019-03-25] MEDS: methylPREDNISolone NA SUCC 40 MG/1 ML VIAL IVPUSH SCH ×2 (19:08→20:35)
[2019-03-25] MEDS ORDERED: AZITHROMYCIN IVPB 500 MG/250 ML BAG IVPB ONE (20:17)
[2019-03-25] MEDS ORDERED: methylPREDNISolone NA SUCC 40 MG/1 ML VIAL ONE (20:18)
[2019-03-25] MEDS: AZITHROMYCIN IVPB 500 MG/250 ML BAG IVPB SCH (20:35)
[2019-03-25] MEDS ORDERED: ALBUTEROL SO4 8 GM HFA INHALER IH PRN (21:06)
[2019-03-25] MEDS ORDERED: ALBUTEROL SO4 0.083% IH SOL 2.5 MG/3 ML VIAL.NEB. NEB PRN (21:06)
[2019-03-25 23:16] LABS: ARTERIAL BLD GAS O2 SATURATION 96.9 % (95-98); ARTERIAL BLOOD GAS BASE EXCESS -10.5 meq/l (-2-2); ARTERIAL BLOOD GAS PCO2 28.5 mmHg (35-45); ARTERIAL BLOOD GAS PO2 95.3 mmHg (80-100); ARTERIAL BLOOD GAS pH 7.32 (7.35-7.45)
[2019-03-25 23:18] LABS: ALLENS TEST POSITIVE
[2019-03-26] MEDS: BUDESONIDE/FORMETEROL FUMARATE 160/4.5 mcg INHALER IH SCH ×3 (00:21→22:00)
[2019-03-26] MEDS ORDERED: INSULIN (NOVOLOG) ASPART 100 UNITS/ML 10ML VIAL ONE (00:24)
[2019-03-26] MEDS: INSULIN SLIDING SCALE (NOVOLOG) 1 VIAL SQ SCH ×5 (00:49→21:42)
[2019-03-26] MEDS ORDERED: AMIODARONE HCL 150 MG/3 ML VIAL ONE (01:16)
[2019-03-26] MEDS ORDERED: AMIODARONE HCL 150 MG/3 ML VIAL IVPUSH ONE (01:33)
[2019-03-26] MEDS ORDERED: AMIODARONE IN DEXTROSE,ISO-OSM 360 MG/200 ML BAG IVPB ONE (01:40)
[2019-03-26] MEDS ORDERED: AMIODARONE IN DEXTROSE,ISO-OSM 150 MG/100 ML BAG IVPB ONE (01:40)
--- NOTE | 2019-03-26 01:43 | PN ---
Progress Note (short form) - Note Progress Note: Updated by ER staff patient noted to be on VTach on tele. Patient reports palpitations. Iv Amiodarone 150mg given once. Patient converted to NSR. Vital signs wnl. Will start patient on Amiodarone drip.
[2019-03-26] MEDS ORDERED: AMIODARONE IN DEXTROSE,ISO-OSM 360 MG/200 ML BAG IVPB SCH (01:45)
[2019-03-26] MEDS ORDERED: methylPREDNISolone NA SUCC 40 MG/1 ML VIAL ONE ×2 (06:17→09:11)
[2019-03-26] MEDS: methylPREDNISolone NA SUCC 40 MG/1 ML VIAL IVPUSH SCH ×3 (06:20→17:11)
[2019-03-26] MEDS ORDERED: ALBUTEROL SO4 2.5/IPRATROPIUM 0.5 INH SOL 3 ML VIAL.NEB. NEB ONE (09:11)
[2019-03-26] MEDS ORDERED: AZITHROMYCIN IVPB 500 MG/250 ML BAG IVPB ONE (09:11)
[2019-03-26] MEDS: ALBUTEROL SO4 2.5/IPRATROPIUM 0.5 INH SOL 3 ML VIAL.NEB. NEB SCH ×3 (09:13→20:00)
[2019-03-26] MEDS: ELVITEG/COB/EMTRI/TENOF (GENVOYA) TABLET (NF) PO SCH (09:13)
[2019-03-26] MEDS: AZITHROMYCIN IVPB 500 MG/250 ML BAG IVPB SCH (09:14)
[2019-03-26] MEDS ORDERED: ACETAMINOPHEN 325 MG TABLET (FP) PO ONE (09:40)
[2019-03-26] MEDS ORDERED: ACETAMINOPHEN 325 MG TABLET (FP) ONE (09:40)
--- NOTE | 2019-03-26 09:40 | PDOC ---
*Physical Exam - Vital Signs Last Vital Signs Temp Pulse Resp BP Pulse Ox 97.5 F L 73 17 140/88 100 03/26/19 08:32 03/26/19 08:32 03/26/19 08:32 03/26/19 08:32 03/26/19 08:32 - Physical Exam Comments: 03/26/19 09:39 pt wiht mild headache. condition unchanged. wlll treat with apap. ED Treatment Course - LABORATORY CBC & Chemistry Diagram: 03/25/19 11:00 03/25/19 11:00 - ADDITIONAL ORDERS Additional order review: 03/25/19 11:00 RBC 5.13 MCV 72.1 L MCHC 30.8 L RDW 20.0 H MPV 7.7 Neutrophils % 71.1 Lymphocytes % 21.6 Monocytes % 5.4 Eosinophils % 0.8 Basophils % 1.1 - Medications Given in the ED: ED Medications Discontinued Medications Generic Name Dose Route Start Last Admin Trade Name Freq PRN Reason Stop Dose Admin Albuterol/Ipratropium 1 amp 03/25/19 12:30 03/25/19 13:27 Duoneb - NEB 03/25/19 13:16 1 amp Q15M KAREN Administration Albuterol/Ipratropium 1 amp 03/25/19 15:30 03/25/19 21:38 Duoneb - NEB 03/25/19 16:16 1 amp Q15M KAREN Administration Amiodarone HCl 150 mg 03/26/19 01:33 03/26/19 01:33 Cordarone Injection - IVPUSH 03/26/19 01:34 150 mg ONCE ONE Administration Aspirin 325 mg 03/25/19 12:29 03/25/19 12:45 Asa - PO 03/25/19 12:30 325 mg ONCE ONE Administration Amiodarone HCl/Dextrose 150 mg in 100 mls @ 600 mls/hr 03/26/19 01:40 07:19 Nexterone 150 Mg/100 Ml Bag IVPB 03/26/19 01:49 Not Given ONCE ONE Protocol Amiodarone HCl/Dextrose 360 mg in 200 mls @ 33.333 mls/hr 03/26/19 01:40 07:19 Nexterone 360 Mg/200 Ml Bag IVPB 03/26/19 07:39 Not Given ONCE ONE Protocol 1 MG/MIN Magnesium Sulfate 2 gm 03/25/19 15:23 03/25/19 15:35 Magnesium Sulfate IVPB 03/25/19 15:24 2 gm ONCE ONE Administration Methylprednisolone Sodium Succinate 125 mg 03/25/19 12:30 03/25/19 12:45 Solu-Medrol - IVPUSH 03/25/19 12:31 125 mg ONCE ONE Administration Discharge - Discharge Information Clinical Impression/Diagnosis: Leg swelling Chest pain Qualifiers: Chest pain type: unspecified Qualified Code(s): R07.9 - Chest pain, unspecified Asthma exacerbation attacks Qualifiers: Asthma severity: unspecified severity Asthma persistence: unspecified Qualified Code(s): J45.901 - Unspecified asthma with (acute) exacerbation Condition: Fair - Follow up/Referral - Patient Discharge Instructions - Post Discharge Activity
[2019-03-26 09:46] LABS: BASO % 0.4 % (0-2.0); HEMATOCRIT 36.3 % (32.4-45.2); HEMOGLOBIN 11.3 GM/dL (10.7-15.3); LYMPH % 6.6 % (8-40); MCH 22.1 pg (25.7-33.7); MEAN CELL VOLUME 71.4 fl (80-96); MEAN PLT VOLUME 7.8 fl (7.5-11.1); MONO % 0.3 % (3.8-10.2); NEUT % 92.7 % (42.8-82.8); PLATELET COUNT 447 K/MM3 (134-434); RBC 5.08 M/mm3 (3.60-5.2); RDW 20.3 % (11.6-15.6); WHITE BLOOD COUNT 20.8 K/mm3 (4.0-10.0)
[2019-03-26 10:12] LABS: INR 1.17 (0.83-1.09); PROTHROMBIN TIME (PATIENT) 13.8 SEC (9.7-13.0)
[2019-03-26 10:14] LABS: ACTIVATED PTT 30.5 SECONDS (25.2-36.5)
--- NOTE | 2019-03-26 10:18 | EKG ---
Test Reason : Blood Pressure : / mmHG Vent. Rate : 086 BPM Atrial Rate : 086 BPM P-R Int : 134 ms QRS Dur : 100 ms QT Int : 398 ms P-R-T Axes : 022 042 000 degrees QTc Int : 476 ms NORMAL SINUS RHYTHM CANNOT RULE OUT ANTERIOR INFARCT (CITED ON OR BEFORE 07-JUN-2018) ABNORMAL ECG WHEN COMPARED WITH ECG OF 07-JUN-2018 14:31, NO SIGNIFICANT CHANGE WAS FOUND Confirmed by CHARU NICHOLSON, CLARA ([id number]) on 03/26/2019 10:17:43 AM Referred By: Confirmed By:CLARA BOX MD
[2019-03-26 10:22] LABS: ALBUMIN 3.8 g/dl (3.4-5.0); BILIRUBIN,TOTAL 0.4 mg/dL (0.2-1); BLOOD UREA NITROGEN 12.1 mg/dL (7-18); CALCIUM 9.5 mg/dL (8.5-10.1); CREATININE 0.8 mg/dL (0.55-1.3); MAGNESIUM 2.5 mg/dL (1.8-2.4); PHOSPHOROUS 2.4 mg/dL (2.5-4.9); POTASSIUM 4.5 mmol/L (3.5-5.1); TOT PROT 7.7 g/dl (6.4-8.2)
--- NOTE | 2019-03-26 11:15 | CON.ID ---
Consult Consult Specialty:: infectious disease Referred by:: hospitalist service Reason for Consultation:: hiv - History of Present Illness Chief Complaint: sob, chest pain History of Present Illness: 48 yo female with asthma and well controlled HIV- sees dr mccauley in the office last cd4 889. viral load suppressed May 2018 no fevers or chills three days of chest discomfort and then cough and wheezing starting yesterday now diffusely wheezing +inflluenza vaccine no sick contacts - History Source History Provided By: Patient Limitations to Obtaining History: No Limitations - Past Medical History Cardio/Vascular: Yes: Other (Patient reports being seen by digital watch assembler for "sluggish heart". She reports occasional "heaviness" in her chest, no chest pain.) Pulmonary: Yes: Asthma Gastrointestinal: Yes: Irritable Bowel Disease. No: Ascites, GI Bleed, Ulcerative Colitis ...LMP: 05/03/18 Infectious Disease: Yes: HIV Additional Medical History: Morbid obesity - Past Surgical History Past Surgical History: Yes: - Alcohol/Substance Use Hx Alcohol Use: No - Smoking History Smoking history: Never smoked Have you smoked in the past 12 months: No - Social History Usual Living Arrangement: With Spouse ADL: Independent Occupation: unemplayed Place of : [facility] History of Recent Travel: No Home Medications - Allergies Allergies/Adverse Reactions: Allergies Allergy/AdvReac Type Severity Reaction Status Date / Time omeprazole magnesium Allergy Mild Hives Verified 06/21/18 12:17 [From [facility]] - Home Medications Home Medications: Ambulatory Orders Elviteg/Cob/Emtri/Tenof Alafen [Genvoya (Non-Formulary)] 1 tab PO DAILY Budesonide/Formeterol Fumarate [SYMBICORT 160/4.5mcg -] 2 inh PO BID 02/20/17 Albuterol 0.083% Nebulizer Rach [Ventolin 0.083% Nebulizer Soln -] 1 amp NEB Q6H PRN #30 amp 05/14/18 Albuterol Sulfate Inhaler - [Ventolin HFA Inhaler -] 1 puff IH Q4H PRN #1 inhaler 05/14/18 Family Medical History Family History: Denies Review of Systems - Review of Systems Constitutional: denies: Lethargy, Loss of Appetite Eyes: reports: No Symptoms HENT: reports: No Symptoms Neck: reports: No Symptoms Cardiovascular: reports: Chest Pain Respiratory: reports: Cough, Wheezing. denies: Hemoptysis Gastrointestinal: reports: No Symptoms Genitourinary: reports: No Symptoms Breasts: reports: No Symptoms Reported Physical Exam Vital Signs: Vital Signs Temperature 97.5 F L 03/26/19 08:32 Pulse Rate 73 03/26/19 08:32 Respiratory Rate 17 03/26/19 08:32 Blood Pressure 140/88 03/26/19 08:32 O2 Sat by Pulse Oximetry (%) 100 03/26/19 08:32 Constitutional: Yes: Well Nourished, No Distress, Obese Eyes: Yes: Conjunctiva Clear HENT: Yes: Atraumatic, Normocephalic. No: Pharyngeal Erythema, Thrush Neck: Yes: Supple Cardiovascular: Yes: Regular Rate and Rhythm Respiratory: Yes: Poor Air Entry, Wheezes Gastrointestinal: Yes: Normal Bowel Sounds, Soft Edema: No Integumentary: No: Rash Psychiatric: Yes: Alert, Oriented Labs: CBC, BMP 03/26/19 09:10 03/26/19 06:00 Imaging - Results Chest X-ray: Report Reviewed, Image Reviewed Problem List - Problems (1) Asthma exacerbation Code(s): J45.901 - UNSPECIFIED ASTHMA WITH (ACUTE) EXACERBATION Qualifiers: Asthma severity: moderate Asthma persistence: unspecified Qualified Code( s): J45.901 - Unspecified asthma with (acute) exacerbation (2) HIV (human immunodeficiency virus infection) Code(s): Z21 - ASYMPTOMATIC HUMAN IMMUNODEFICIENCY VIRUS INFECTION STATUS Assessment/Plan well controlled HIV continue genvoya (patient has her meds with her) asthma- management per pulmonary
[2019-03-26 12:28] LABS: ANISOCYTOSIS 1+; MACROCYTOSIS 0; PLATELET ESTIMATE NORMAL
--- NOTE | 2019-03-26 13:09 | CON.PULM ---
Consult Consult Specialty:: PULMONARY Referred by:: Dr Busby Reason for Consultation:: shortness of breath - History of Present Illness Chief Complaint: chest pain History of Present Illness: 48yo female with h/o HIV, asthma known from prior admissions who presented to the ER with chest pain radiating to her back and arm. While in the ER, started experiencing shortness of breath and wheezing. +nonproductive cough. No fevers, chills or sweats. No recent travel or sick contacts. She did get her flu shot. Reports compliance with her inhalers, maintained on Symbicort and Singulair. - History Source History Provided By: Patient, Medical Record Limitations to Obtaining History: No Limitations - Past Medical History Cardio/Vascular: Yes: Other (Patient reports being seen by core extruder for "sluggish heart". She reports occasional "heaviness" in her chest, no chest pain.) Pulmonary: Yes: Asthma Gastrointestinal: Yes: Irritable Bowel Disease. No: Ascites, GI Bleed, Ulcerative Colitis ...LMP: 05/03/18 Infectious Disease: Yes: HIV Additional Medical History: Morbid obesity - Past Surgical History Past Surgical History: Yes: - Alcohol/Substance Use Hx Alcohol Use: No - Smoking History Smoking history: Never smoked Have you smoked in the past 12 months: No - Social History Usual Living Arrangement: With Spouse ADL: Independent Occupation: unemplayed History of Recent Travel: No Home Medications - Allergies Allergies/Adverse Reactions: Allergies Allergy/AdvReac Type Severity Reaction Status Date / Time omeprazole magnesium Allergy Mild Hives Verified 06/21/18 12:17 [From [facility]] - Home Medications Home Medications: Ambulatory Orders Elviteg/Cob/Emtri/Tenof Alafen [Genvoya (Non-Formulary)] 1 tab PO DAILY Budesonide/Formeterol Fumarate [SYMBICORT 160/4.5mcg -] 2 inh PO BID 02/20/17 Albuterol 0.083% Nebulizer Rach [Ventolin 0.083% Nebulizer Soln -] 1 amp NEB Q6H PRN #30 amp 05/14/18 Albuterol Sulfate Inhaler - [Ventolin HFA Inhaler -] 1 puff IH Q4H PRN #1 inhaler 05/14/18 Review of Systems - Review of Systems Constitutional: denies: Chills, Fever Eyes: denies: Recent Change in Vision HENT: denies: Nasal Congestion, Throat Pain Neck: denies: Stiffness, Tenderness Cardiovascular: reports: Chest Pain, Shortness of Breath. denies: Edema Respiratory: reports: Cough, Wheezing. denies: Hemoptysis Gastrointestinal: denies: Abdominal Pain, Nausea, Vomiting Genitourinary: denies: Dysuria, Hematuria Neurological: denies: Dizziness, Headache Endocrine: denies: Unexplained Weight Loss Physical Exam Vital Sings: Vital Signs Temperature 97.5 F L 03/26/19 08:32 Pulse Rate 73 03/26/19 08:32 Respiratory Rate 17 03/26/19 08:32 Blood Pressure 140/88 03/26/19 08:32 O2 Sat by Pulse Oximetry (%) 100 03/26/19 08:32 Constitutional: Yes: Calm Eyes: Yes: Conjunctiva Clear, EOM Intact HENT: Yes: Atraumatic, Normocephalic Neck: Yes: Trachea Midline Cardiovascular: Yes: Regular Rate and Rhythm Respiratory: Yes: Diminished (distant breath sounds), Poor Air Entry ...Clubbing: No Gastrointestinal: Yes: Normal Bowel Sounds, Soft. No: Tenderness Edema: No Neurological: Yes: Alert, Oriented Labs: CBC, BMP 03/26/19 09:10 03/26/19 06:00 ABG Results ABG pH 7.32 (7.35-7.45) L 03/25/19 23:05 ABG pCO2 at Pt Temp 28.5 mmHg (35-45) L 03/25/19 23:05 ABG pO2 at Pt Temp 95.3 mmHg (80-100) 03/25/19 23:05 ABG HCO3 14.1 mmol/L (22-27) L 03/25/19 23:05 ABG O2 Sat (Measured) 96.9 % (95-98) 03/25/19 23:05 ABG O2 Content 15.4 % vol 03/25/19 23:05 ABG Base Excess -10.5 meq/l (-2-2) L 03/25/19 23:05 Imaging - Results Chest X-ray: Report Reviewed, Image Reviewed (no infiltrates) Problem List - Problems (1) Asthma exacerbation Code(s): J45.901 - UNSPECIFIED ASTHMA WITH (ACUTE) EXACERBATION Qualifiers: Asthma severity: moderate Asthma persistence: unspecified Qualified Code( s): J45.901 - Unspecified asthma with (acute) exacerbation Assessment/Plan Acute Asthma Exacerbation HIV Morbid Obesity - IV medrol - inhaled bronchodilators standing and PRN - singulair - monitor peak flow - O2 to keep SpO2 >90% - DVT prophylaxis Thank you for this consult Mendoza Felix MD
--- NOTE | 2019-03-26 14:00 | CON.CARD ---
Cardiology Consult (text) - Consultation Consultation Note: cc: sob, cp hpi: 48 f hx hiv, htn, dm, asthma here with sob, cp. Past few days with sob, achey central chest pain, cough. No dizzy loc pnd orthopnea le edema. Treating for asthma and sob/cp improving. CP worse with deep breaths. Reported episode of vt in ER. pmh: per hpi psh: social: no tob ros: per hpi; all others nl fam: no premature cad scd meds: Home Medications Medication Instructions Recorded Elviteg/Cob/Emtri/Tenof Alafen 1 tab PO DAILY 02/19/17 [Genvoya (Non-Formulary)] Budesonide/Formeterol Fumarate 2 inh PO BID 02/20/17 [SYMBICORT 160/4.5mcg -] Albuterol 0.083% Nebulizer Rach 1 amp NEB Q6H PRN #30 amp 05/14/18 [Ventolin 0.083% Nebulizer Soln -] Albuterol Sulfate Inhaler - 1 puff IH Q4H PRN #1 inhaler 05/14/18 [Ventolin HFA Inhaler -] Tiotropium [place] [Spiriva 2 puff PO DAILY 03/26/19 Respimat] pe: Vital Signs Period Temp Pulse Resp BP Sys/So Pulse Ox Last 24 Hr 97.5 F-97.5 F 73-103 14-32 113-152/69-88 88-100 nad no jvd rrr s1s2 no mrg bl exp wheeze, nl eff aaox3 no le e/c/c abd nt nd pos bs no jaundice diaphoresis pos dp pt no carotid bruits Laboratory Last Values WBC 20.8 K/mm3 (4.0-10.0) H 03/26/19 09:10 RBC 5.08 M/mm3 (3.60-5.2) 03/26/19 09:10 Hgb 11.3 GM/dL (10.7-15.3) 03/26/19 09:10 Hct 36.3 % (32.4-45.2) 03/26/19 09:10 MCV 71.4 fl (80-96) L 03/26/19 09:10 MCH 22.1 pg (25.7-33.7) L 03/26/19 09:10 MCHC 31.0 g/dl (32.0-36.0) L 03/26/19 09:10 RDW 20.3 % (11.6-15.6) H 03/26/19 09:10 Plt Count 447 K/MM3 (134-434) H 03/26/19 09:10 MPV 7.8 fl (7.5-11.1) 03/26/19 09:10 Absolute Neuts (auto) 19.3 K/mm3 (1.5-8.0) H 03/26/19 09:10 Neutrophils % 92.7 % (42.8-82.8) H D 03/26/19 09:10 Neutrophils % (Manual) 93.9 % (42.8-82.8) H 03/26/19 09:10 Band Neutrophils % 0.0 % 03/26/19 09:10 Lymphocytes % 6.6 % (8-40) L D 03/26/19 09:10 Lymphocytes % (Manual) 5.1 % (8-40) L D 03/26/19 09:10 Monocytes % 0.3 % (3.8-10.2) L D 03/26/19 09:10 Monocytes % (Manual) 1 % (3.8-10.2) L 03/26/19 09:10 Eosinophils % 0.0 % (0-4.5) D 03/26/19 09:10 Eosinophils % (Manual) 0.0 % (0-4.5) 03/26/19 09:10 Basophils % 0.4 % (0-2.0) 03/26/19 09:10 Basophils % (Manual) 0.0 % (0-2.0) 03/26/19 09:10 Myelocytes % (Man) 0 % (0-2) 03/26/19 09:10 Promyelocytes % (Man) 0 % (0-2) 03/26/19 09:10 Blast Cells % (Manual) 0 % (0-0) 03/26/19 09:10 Nucleated RBC % 0 % (0-0) 03/26/19 09:10 Metamyelocytes 0 % (0-2) D 03/26/19 09:10 Hypochromia 0 03/26/19 09:10 Platelet Estimate Normal 03/26/19 09:10 Polychromasia 1+ 03/26/19 09:10 Anisocytosis 1+ 03/26/19 09:10 Microcytosis 1+ 03/26/19 09:10 Macrocytosis 0 03/26/19 09:10 Rick Cells 1+ 03/26/19 09:10 Schistocytes 1+ 03/26/19 09:10 PT with INR 13.80 SEC (9.7-13.0) H 03/26/19 09:10 INR 1.17 (0.83-1.09) H 03/26/19 09:10 PTT (Actin FS) 30.5 SECONDS (25.2-36.5) 03/26/19 09:10 D-Dimer 289 ng/ml (0-500) 03/25/19 21:35 Anticoagulation Therapy Cancelled 03/25/19 22:00 Puncture Site Right radial 03/25/19 23:05 Patient Temperature Cancelled 03/25/19 22:00 ABG pH 7.32 (7.35-7.45) L 03/25/19 23:05 ABG pCO2 at Pt Temp 28.5 mmHg (35-45) L 03/25/19 23:05 ABG pO2 at Pt Temp 95.3 mmHg (80-100) 03/25/19 23:05 ABG HCO3 14.1 mmol/L (22-27) L 03/25/19 23:05 ABG O2 Sat (Measured) 96.9 % (95-98) 03/25/19 23:05 ABG O2 Content 15.4 % vol 03/25/19 23:05 ABG Base Excess -10.5 meq/l (-2-2) L 03/25/19 23:05 Rik Test Positive 03/25/19 23:05 O2 Delivery Device Cancelled 03/25/19 22:00 Oxygen Flow Rate Room air 03/25/19 23:05 Vent Mode Cancelled 03/25/19 22:00 Vent Rate Cancelled 03/25/19 22:00 Mechanical Rate Cancelled 03/25/19 22:00 PEEP Cancelled 03/25/19 22:00 Pressure Support Vent Cancelled 03/25/19 22:00 Sodium 137 mmol/L (136-145) 03/26/19 06:00 Potassium 4.5 mmol/L (3.5-5.1) 03/26/19 06:00 Chloride 106 mmol/L (98-107) 03/26/19 06:00 Carbon Dioxide 23 mmol/L (21-32) 03/26/19 06:00 Anion Gap 9 MMOL/L (8-16) 03/26/19 06:00 BUN 12.1 mg/dL (7-18) 03/26/19 06:00 Creatinine 0.8 mg/dL (0.55-1.3) 03/26/19 06:00 Est GFR (CKD-EPI)AfAm 102.47 03/26/19 06:00 Est GFR (CKD-EPI)NonAf 88.41 03/26/19 06:00 POC Glucometer 248 UNITS (80-120) 03/26/19 11:22 Random Glucose 185 mg/dL (74-106) H 03/26/19 06:00 Calcium 9.5 mg/dL (8.5-10.1) 03/26/19 06:00 Phosphorus 2.4 mg/dL (2.5-4.9) L 03/26/19 06:00 Magnesium 2.5 mg/dL (1.8-2.4) H 03/26/19 06:00 Total Bilirubin 0.4 mg/dL (0.2-1) 03/26/19 06:00 AST 9 U/L (15-37) L 03/26/19 06:00 ALT 16 U/L (13-61) 03/26/19 06:00 Alkaline Phosphatase 82 U/L (45-117) 03/26/19 06:00 Creatine Kinase 88 U/L (26-192) 03/25/19 11:00 Troponin I < 0.02 ng/ml (0.00-0.05) 03/25/19 21:35 B-Natriuretic Peptide 74.3 pg/ml (5-125) 03/25/19 11:00 Total Protein 7.7 g/dl (6.4-8.2) 03/26/19 06:00 Albumin 3.8 g/dl (3.4-5.0) 03/26/19 06:00 Urine HCG, Qual Negative 03/25/19 11:00 Influenza A (Rapid) Negative (Negative) 03/26/19 07:48 Influenza B (Rapid) Negative (Negative) 03/26/19 07:48 cxr: clear lungs ecg: sr nl intervals no ischemic changes echo 10/2017: nl lvef, no sig valve path tele: sr, artifact, no VT a/p: 48 f hx hiv, htn, dm, asthma here with sob, cp. sob, cp: -cp atypical, pleuritic, seems related to asthma -ce's negx2, ecg wnl, no signs acs -symptoms seem likely due to asthma, have improved with tx of asthma -echo pending htn: -elevated here, possibly due to acute issues, monitor for now, pt not on meds at home VT: -per ER reports pt had episode of VT, vitals stable and given amio 150mg, then in sr -tele reviewed, no VT seen, had some artifact -lytes unremarkable. check echo. monitor on tele for now.
--- NOTE | 2019-03-26 16:40 | ECHO ---
Name: ZARAGOZA, FILOMENA Exam:Adult Echocardiogram Study Date: 03/26/2019 03:21 PM Age: 48 yrs Height: 62 in Weight: 340 lb BSA: 2.4 m2 MMode/2D Measurements & Calculations LVOT diam: 2.2 cm Doppler Measurements & Calculations MV E max josemanuel: 86.3 cm/sec Ao V2 max: 136.7 cm/sec MV A max josemanuel: 66.0 cm/sec Ao max P.5 mmHg MV E/A: 1.3 MV dec time: 0.16 sec PAXTON(V,D): 2.5 cm2 LV V1 max P.3 mmHg LV V1 max: 90.7 cm/sec Procedure The study was technically difficult with many images being suboptimal in quality. There was technical limitations during this study due to patients body habitas. The study was non-diagnostic in quality. No definitive statements could be made about this echo due to extremely poor acoustic windows. Left Ventricle The left ventricle is not well visualized. Due to the poor quality of the echocardiogram, an assessme nt of left ventricular ejection fraction cannot be made. Regional wall motion abnormalities cannot be exclu ded due to limited visualization. Right Ventricle The right ventricle is not well visualized. Atria The left atrium is not well visualized. Right atrium not well visualized. Mitral Valve The mitral valve is not well visualized. Tricuspid Valve The tricuspid valve is not well visualized. Aortic Valve The aortic valve is not well visualized. Pulmonic Valve The pulmonic valve is not well visualized. Great Vessels The aortic root is not well visualized. Interpretation Summary The study was technically difficult with many images being suboptimal in quality. There was technical limitations during this study due to patients body habitas. The left ventricle is not well visualized. The study was non-diagnostic in quality. No definitive statements could be made about this echo due t o extremely poor acoustic windows. Due to the poor quality of the echocardiogram, an assessment of left ventricular ejection fraction ca nnot be made. Regional wall motion abnormalities cannot be excluded due to limited visualization. The left atrium is not well visualized. Right atrium not well visualized. MD Esau Phan 03/26/2019 04:39 PM
[2019-03-26] MEDS ORDERED: NAPH,MB-DB/K PH,MBDB POWDER PACKET PO ONE (17:09)
--- NOTE | 2019-03-26 17:17 | PN ---
Teaching Attending Note Name of Resident: Lexi Saenz ATTENDING PHYSICIAN STATEMENT I saw and evaluated the patient. I reviewed the resident's note and discussed the case with the resident. I agree with the resident's findings and plan as documented. SUBJECTIVE: no fever or chills. has chest pain and pressure and abd painx 3 days , and almost everything hurts . OBJECTIVE: NAD, got emotional when asked about her condition , audible wheezing CV: Cant apprecaite any heart sounds Lungs: Clear lung sharp. upper wheezing. No stridor Abd: soft, Nd, TTP in LUQ. abd wall edema Ext : minimal pitting edema on LE TTP over L sided chest wall ASSESSMENT AND PLAN: 48 y/o lady with h/o Asthma, Dm, anemia, HIV who presented with SOB and CP . She was found to have acute asthma exacerbation 1- Acute asthma exacerbation : - cont steroids - NEbs - spiriva and symbicort - No evidence of PNA 2- CP: atypical in nature. EKG reviewed. pain is reproducible. - tele - echo 3- Episode of tachycardia over night. strips reviewed. it dose not look like VT. Card concur - replete Phos - echo - tele - appreciate card help 4- HIV : cont Genvoya 5-H/o DM: she takes po meds at home. SSI here 6- H/o iron def anemia: last iron studies reviewed. - f/u as out pt for work up dvt px
--- NOTE | 2019-03-26 17:26 | PN ---
Physical Exam: SUBJECTIVE: Patient seen and examined 48 y/o F, pmh of asthma w/ multiple exacerbations and hospitalizations, DM, HTN , morbid obesity, PUMA and HIV on genvoya, presented for chest pain and shortness of breath. Currently, pt is in mild distress due to difficulty breathing and shortness of breath. Wheezing in audible externally. Pt is anxious and c/o of chest pain and abdominal pain. Denies f/c/n/v/d/numbness or tingling. OBJECTIVE: Vital Signs Period Temp Pulse Resp BP Sys/So Pulse Ox Last 24 Hr 97.5 F-97.5 F 73-103 14-32 113-152/69-88 88-100 GENERAL: The patient is awake, alert, and oriented but anxious and mildly distressed. EYES: PERRL, extraocular movements intact, sclera anicteric, conjunctiva clear. ENT: oropharynx clear without exudates, moist mucous membranes. NECK: full range of motion, supple. LUNGS: Breath sounds equal, clear to auscultation bilaterally, no wheezing heard from lungs. Wheezing heard from upper airways. No crackles. Accessory muscle use is visible. HEART: Regular rate and rhythm, S1, S2 without murmur, rub or gallop. ABDOMEN: Soft but tender to palpation. ND, normoactive bowel sounds, no guarding , no rebound, no hepatosplenomegaly, no masses. EXTREMITIES: 2+ pulses, warm, well-perfused, b/l pitting Edema 1+ NEUROLOGICAL: Cranial nerves II through XII grossly intact. Normal speech PSYCH: Normal mood, normal affect. Laboratory Results - last 24 hr CBC,CMP WBC 20.8 K/mm3 (4.0-10.0) H 03/26/19 09:10 RBC 5.08 M/mm3 (3.60-5.2) 03/26/19 09:10 Hgb 11.3 GM/dL (10.7-15.3) 03/26/19 09:10 Hct 36.3 % (32.4-45.2) 03/26/19 09:10 MCV 71.4 fl (80-96) L 03/26/19 09:10 MCH 22.1 pg (25.7-33.7) L 03/26/19 09:10 MCHC 31.0 g/dl (32.0-36.0) L 03/26/19 09:10 RDW 20.3 % (11.6-15.6) H 03/26/19 09:10 Plt Count 447 K/MM3 (134-434) H 03/26/19 09:10 MPV 7.8 fl (7.5-11.1) 03/26/19 09:10 Absolute Neuts (auto) 19.3 K/mm3 (1.5-8.0) H 03/26/19 09:10 Neutrophils % 92.7 % (42.8-82.8) H D 03/26/19 09:10 Neutrophils % (Manual) 93.9 % (42.8-82.8) H 03/26/19 09:10 Band Neutrophils % 0.0 % 03/26/19 09:10 Lymphocytes % 6.6 % (8-40) L D 03/26/19 09:10 Lymphocytes % (Manual) 5.1 % (8-40) L D 03/26/19 09:10 Monocytes % 0.3 % (3.8-10.2) L D 03/26/19 09:10 Monocytes % (Manual) 1 % (3.8-10.2) L 03/26/19 09:10 Eosinophils % 0.0 % (0-4.5) D 03/26/19 09:10 Eosinophils % (Manual) 0.0 % (0-4.5) 03/26/19 09:10 Basophils % 0.4 % (0-2.0) 03/26/19 09:10 Basophils % (Manual) 0.0 % (0-2.0) 03/26/19 09:10 Myelocytes % (Man) 0 % (0-2) 03/26/19 09:10 Promyelocytes % (Man) 0 % (0-2) 03/26/19 09:10 Blast Cells % (Manual) 0 % (0-0) 03/26/19 09:10 Nucleated RBC % 0 % (0-0) 03/26/19 09:10 Metamyelocytes 0 % (0-2) D 03/26/19 09:10 Hypochromia 0 03/26/19 09:10 Platelet Estimate Normal 03/26/19 09:10 Polychromasia 1+ 03/26/19 09:10 Anisocytosis 1+ 03/26/19 09:10 Microcytosis 1+ 03/26/19 09:10 Macrocytosis 0 03/26/19 09:10 [place] Cells 1+ 03/26/19 09:10 Schistocytes 1+ 03/26/19 09:10 Sodium 137 mmol/L (136-145) 03/26/19 06:00 Potassium 4.5 mmol/L (3.5-5.1) 03/26/19 06:00 Chloride 106 mmol/L (98-107) 03/26/19 06:00 Carbon Dioxide 23 mmol/L (21-32) 03/26/19 06:00 Anion Gap 9 MMOL/L (8-16) 03/26/19 06:00 BUN 12.1 mg/dL (7-18) 03/26/19 06:00 Creatinine 0.8 mg/dL (0.55-1.3) 03/26/19 06:00 Est GFR (CKD-EPI)AfAm 102.47 03/26/19 06:00 Est GFR (CKD-EPI)NonAf 88.41 03/26/19 06:00 POC Glucometer 269 UNITS (80-120) 03/26/19 17:07 Random Glucose 185 mg/dL (74-106) H 03/26/19 06:00 Calcium 9.5 mg/dL (8.5-10.1) 03/26/19 06:00 Phosphorus 2.4 mg/dL (2.5-4.9) L 03/26/19 06:00 Magnesium 2.5 mg/dL (1.8-2.4) H 03/26/19 06:00 Total Bilirubin 0.4 mg/dL (0.2-1) 03/26/19 06:00 AST 9 U/L (15-37) L 03/26/19 06:00 ALT 16 U/L (13-61) 03/26/19 06:00 Alkaline Phosphatase 82 U/L (45-117) 03/26/19 06:00 Creatine Kinase 88 U/L (26-192) 03/25/19 11:00 Troponin I < 0.02 ng/ml (0.00-0.05) 03/25/19 21:35 B-Natriuretic Peptide 74.3 pg/ml (5-125) 03/25/19 11:00 Total Protein 7.7 g/dl (6.4-8.2) 03/26/19 06:00 Albumin 3.8 g/dl (3.4-5.0) 03/26/19 06:00 Active Medications Current Medications Albuterol Sulfate (Ventolin 0.083% Nebulizer Soln -) 1 amp NEB Q6H PRN PRN Reason: wheezing Albuterol/Ipratropium (Duoneb -) 1 amp NEB RQID [facility] Last Admin: 03/26/19 13:13 Dose: 1 amp Budesonide/Formoterol Fumarate (Symbicort 160/4.5mcg -) 2 puff IH BID [facility] Last Admin: 03/26/19 09:23 Dose: 2 puff Elvitegravir/Cobicis/Emtricit/Tenof (Genvoya (Non-Formulary)) 1 tab PO DAILY [facility] Last Admin: 03/26/19 09:13 Dose: Not Given Heparin Sodium (Porcine) (Heparin -) 5,000 unit SQ TID [facility] Insulin Aspart (Novolog Vial Sliding Scale -) 0 vial SQ ACHS [facility]; Protocol Last Admin: 03/26/19 17:10 Dose: 6 units Methylprednisolone Sodium Succinate (Solu-Medrol -) 60 mg IVPUSH Q8H-IV [facility] Last Admin: 03/26/19 17:11 Dose: 60 mg Montelukast Sodium (Singulair -) 10 mg PO HS [facility] Home Medications Medication Instructions Recorded Elviteg/Cob/Emtri/Tenof Alafen 1 tab PO DAILY 02/19/17 [Genvoya (Non-Formulary)] Budesonide/Formeterol Fumarate 2 inh PO BID 02/20/17 [SYMBICORT 160/4.5mcg -] Albuterol 0.083% Nebulizer Rach 1 amp NEB Q6H PRN #30 amp 05/14/18 [Ventolin 0.083% Nebulizer Soln -] Albuterol Sulfate Inhaler - 1 puff IH Q4H PRN #1 inhaler 05/14/18 [Ventolin HFA Inhaler -] Tiotropium [place] [Spiriva 2 puff PO DAILY 03/26/19 Respimat] ASSESSMENT/PLAN: 48 y/o F, pmh of asthma w/ multiple exacerbations and hospitalizations, DM, HTN , morbid obesity, PUMA and HIV on genvoya, presented for chest pain and shortness of breath. #SOB likely 2/2 to Acute asthma exacerbation Pt on solumedrol 60 Q8 IV push nebulizers cont singular, symbicort CXR normal #Atypical Chest pain likely 2/2 to asthma exacerbation related exertional pain EKG normal Cardio cleared pt- V-tach from overnight was likely an artifact Pt to tele Echo- f/u in am Replete phosphates #HIV ID consult appreciated will cont Genvoya #DM SSI #Dvt ppx SCDs FEN: monitor lytes Diabetic diet Dispo: f/u Echo, cont medrol and nebs, monitor on tele Visit type - Emergency Visit Emergency Visit: Yes ED Registration Date: 03/25/19 Care time: The patient presented to the Emergency Department on the above date and was hospitalized for further evaluation of their emergent condition. - New Patient This patient is new to me today: Yes Date on this admission: 03/26/19 - Critical Care Critical Care patient: No - Discharge Referral Referred to [facility] Med P.C[facility] No ATTENDING PHYSICIAN STATEMENT I saw and evaluated the patient. I reviewed the resident's note and discussed the case with the resident. I agree with the resident's findings and plan as documented. SUBJECTIVE: OBJECTIVE: ASSESSMENT AND PLAN:
[2019-03-26 17:34] VITALS: BMI 63.6
[2019-03-26] MEDS ORDERED: PT OWN MED DRAWER 7, Y5N ONE (21:35)
[2019-03-26] MEDS ORDERED: INSULIN SLIDING SCALE (NOVOLOG) 1 VIAL SQ ONE (21:35)
[2019-03-26] MEDS: HEPARIN NA (PORCINE) 5,000 UNITS/ML 1ML VIAL SQ SCH (21:38)
[2019-03-26] MEDS: MONTELUKAST NA 10 MG TABLET PO SCH (21:39)
[2019-03-27] MEDS: methylPREDNISolone NA SUCC 40 MG/1 ML VIAL IVPUSH SCH ×3 (02:04→18:19)
[2019-03-27] MEDS ORDERED: INSULIN SLIDING SCALE (NOVOLOG) 1 VIAL SQ ONE (06:43)
[2019-03-27] MEDS: INSULIN SLIDING SCALE (NOVOLOG) 1 VIAL SQ SCH ×4 (06:50→22:27)
[2019-03-27] MEDS: HEPARIN NA (PORCINE) 5,000 UNITS/ML 1ML VIAL SQ SCH ×3 (06:51→22:27)
[2019-03-27 06:55] LABS: HEMOGLOBIN 10.9 GM/dL (10.7-15.3); MCH 22.2 pg (25.7-33.7); MCHC 31.2 g/dl (32.0-36.0); MEAN CELL VOLUME 71.2 fl (80-96); MEAN PLT VOLUME 8.2 fl (7.5-11.1); PLATELET COUNT 476 K/MM3 (134-434); RBC 4.92 M/mm3 (3.60-5.2); RDW 20.5 % (11.6-15.6); WHITE BLOOD COUNT 21.1 K/mm3 (4.0-10.0)
[2019-03-27 07:10] LABS: BLOOD UREA NITROGEN 14.4 mg/dL (7-18); CALCIUM 9.4 mg/dL (8.5-10.1); CREATININE 0.9 mg/dL (0.55-1.3); MAGNESIUM 2.3 mg/dL (1.8-2.4); PHOSPHOROUS 3.4 mg/dL (2.5-4.9); POTASSIUM 4.8 mmol/L (3.5-5.1)
[2019-03-27] MEDS: ALBUTEROL SO4 2.5/IPRATROPIUM 0.5 INH SOL 3 ML VIAL.NEB. NEB SCH ×4 (07:35→20:34)
--- NOTE | 2019-03-27 08:51 | PN ---
Progress Note, Physician Chief Complaint: Wheezing TELE: NSR, artifact. ER strips reviewed-Artifact. - Current Medication List Current Medications: Active Medications Albuterol Sulfate (Ventolin 0.083% Nebulizer Soln -) 1 amp NEB Q6H PRN PRN Reason: wheezing Albuterol/Ipratropium (Duoneb -) 1 amp NEB RQID KAREN Last Admin: 03/26/19 20:00 Dose: 1 amp Budesonide/Formoterol Fumarate (Symbicort 160/4.5mcg -) 2 puff IH BID [facility] Last Admin: 03/26/19 22:00 Dose: Not Given Elvitegravir/Cobicis/Emtricit/Tenof (Genvoya (Non-Formulary)) 1 tab PO DAILY [facility] Last Admin: 03/26/19 09:13 Dose: Not Given Heparin Sodium (Porcine) (Heparin -) 5,000 unit SQ TID [facility] Last Admin: 03/27/19 06:51 Dose: 5,000 unit Insulin Aspart (Novolog Vial Sliding Scale -) 0 vial SQ ACHS [facility]; Protocol Last Admin: 03/27/19 06:50 Dose: 6 units Methylprednisolone Sodium Succinate (Solu-Medrol -) 60 mg IVPUSH Q8H-IV KAREN Last Admin: 03/27/19 02:04 Dose: 60 mg Montelukast Sodium (Singulair -) 10 mg PO HS [facility] Last Admin: 03/26/19 21:39 Dose: 10 mg - Objective Vital Signs: Vital Signs Temperature 98.0 F 03/27/19 06:30 Pulse Rate 74 03/27/19 06:30 Respiratory Rate 20 03/27/19 06:30 Blood Pressure 140/93 03/27/19 06:30 O2 Sat by Pulse Oximetry (%) 96 03/27/19 01:00 Constitutional: Yes: No Distress Eyes: Yes: Conjunctiva Clear Cardiovascular: Yes: Regular Rate and Rhythm Respiratory: Yes: Other (bilateral expiratory wheezing) Gastrointestinal: Yes: Soft, Abdomen, Obese Edema: No Neurological: Yes: Alert, Oriented ...Motor Strength: WNL Labs: CBC, BMP 03/27/19 06:05 03/27/19 06:05 INR, PTT INR 1.17 (0.83-1.09) H 03/26/19 09:10 Laboratory Tests 03/25/19 03/25/19 11:00 21:35 Troponin I < 0.02 < 0.02 B-Natriuretic Peptide 74.3 - ....Imaging EKG: Image Reviewed Assessment/Plan cxr: clear lungs ecg: sr nl intervals no ischemic changes echo 10/2017: nl lvef, no sig valve path tele: sr, artifact, no VT A/P: 48 f hx hiv, htn, dm, asthma here with sob, cp. SOB/ chest tightness: acute exacerbation asthma -cp atypical, pleuritic, seems related to asthma -ce's negx2, ecg wnl, no signs acs -symptoms seem likely due to asthma, have improved with tx of asthma as per pulmonary -echo technically difficult and non-diagnostic. Can repeat echo w/ contrast as outpatient. htn: -now normalized. VT: -per ER reports pt had episode of VT, vitals stable and given amio 150mg, then in sr -tele reviewed, no VT seen, had some artifact -lytes unremarkable. -On tele.
--- NOTE | 2019-03-27 09:29 | PN ---
Progress Note, Physician History of Present Illness: pulmonary alert,less dyspneic,less cough - Current Medication List Current Medications: Active Medications Albuterol Sulfate (Ventolin 0.083% Nebulizer Soln -) 1 amp NEB Q6H PRN PRN Reason: wheezing Albuterol/Ipratropium (Duoneb -) 1 amp NEB RQID [facility]AREN Last Admin: 03/27/19 07:35 Dose: 1 amp Budesonide/Formoterol Fumarate (Symbicort 160/4.5mcg -) 2 puff IH BID KAREN Last Admin: 03/26/19 22:00 Dose: Not Given Elvitegravir/Cobicis/Emtricit/Tenof (Genvoya (Non-Formulary)) 1 tab PO DAILY [facility] Last Admin: 03/26/19 09:13 Dose: Not Given Heparin Sodium (Porcine) (Heparin -) 5,000 unit SQ TID KAREN Last Admin: 03/27/19 06:51 Dose: 5,000 unit Insulin Aspart (Novolog Vial Sliding Scale -) 0 vial SQ ACHS [facility]; Protocol Last Admin: 03/27/19 06:50 Dose: 6 units Methylprednisolone Sodium Succinate (Solu-Medrol -) 60 mg IVPUSH Q8H-IV KAREN Last Admin: 03/27/19 02:04 Dose: 60 mg Montelukast Sodium (Singulair -) 10 mg PO HS KAREN Last Admin: 03/26/19 21:39 Dose: 10 mg - Objective Vital Signs: Vital Signs Temperature 98.0 F 03/27/19 09:07 Pulse Rate 87 03/27/19 09:07 Respiratory Rate 18 03/27/19 09:07 Blood Pressure 143/77 03/27/19 09:07 O2 Sat by Pulse Oximetry (%) 96 03/27/19 01:00 Constitutional: Yes: Well Nourished, Calm, Obese Eyes: Yes: WNL HENT: Yes: WNL Neck: Yes: WNL Cardiovascular: Yes: Regular Rate and Rhythm, S1, S2 Respiratory: Yes: Wheezes (scattered mya wheezes) Gastrointestinal: Yes: Normal Bowel Sounds, Soft Extremities: Yes: WNL Edema: No Labs: CBC, BMP 03/27/19 06:05 03/27/19 06:05 INR, PTT INR 1.17 (0.83-1.09) H 03/26/19 09:10 Assessment/Plan Problem List - Problems (1) Asthma exacerbation Code(s): J45.901 - UNSPECIFIED ASTHMA WITH (ACUTE) EXACERBATION Qualifiers: Asthma severity: moderate Asthma persistence: unspecified Qualified Code( s): J45.901 - Unspecified asthma with (acute) exacerbation Assessment/Plan Acute Asthma Exacerbation HIV Morbid Obesity - IV medrol - inhaled bronchodilators standing and PRN - singulair - monitor peak flow - O2 to keep SpO2 >90% - DVT prophylaxis DR GREENWOOD
[2019-03-27] MEDS: BUDESONIDE/FORMETEROL FUMARATE 160/4.5 mcg INHALER IH SCH ×2 (10:19→22:28)
[2019-03-27] MEDS: ELVITEG/COB/EMTRI/TENOF (GENVOYA) TABLET (NF) PO SCH (10:19)
--- NOTE | 2019-03-27 14:41 | PN ---
Teaching Attending Note Name of Resident: Callum Mckee ATTENDING PHYSICIAN STATEMENT I saw and evaluated the patient. I reviewed the resident's note and discussed the case with the resident. I agree with the resident's findings and plan as documented. SUBJECTIVE: No fever or chills. No pain . has wheezing . minimal cough . whitish sputum production OBJECTIVE: NAD CV: Can't apprecaite any heart sounds Lungs: minmal scattered wheezing Ext : minimal pitting edema on LE ASSESSMENT AND PLAN: 48 y/o lady with h/o Asthma, Dm, anemia, HIV who presented with SOB and CP . She was found to have acute asthma exacerbation 1- Acute asthma exacerbation : - cont steroids - Peak flow noted - NEbs 2- CP: atypical in nature. - tele - echo was a poor study. - case d/w Dr. Marquez. NO need for stress test 3- Episode of tachycardia. NO arryhthmias. tele reviewed again 4- HIV : cont Genvoya 5-H/o DM. SSI here 6- H/o iron def anemia: - f/u as out pt for work up dvt px
--- NOTE | 2019-03-27 17:32 | PN ---
Physical Exam: SUBJECTIVE: Patient seen and examined at bedside. No acute events overnight. OBJECTIVE: Vital Signs Period Temp Pulse Resp BP Sys/So Pulse Ox Last 24 Hr 97.7 F-98.0 F 74-90 18-20 107-143/48-93 95-98 GENERAL: NAD HEAD: Normal with no signs of trauma. EYES: EOMI Sclera Clear. ENT: MMM NECK: No accessory muscle use for respiration. LUNGS: Scattered wheezes throughout. HEART: RRR S1S2 ABDOMEN: Obese, Nontender Nondistended EXTREMITIES: 2+ pulses, warm, well-perfused, no edema. PSYCH: Normal mood, normal affect. SKIN: No rashes or lesions appreciated Laboratory Results - last 24 hr 03/26/19 03/27/19 03/27/19 21:41 06:05 06:05 WBC 21.1 H RBC 4.92 Hgb 10.9 Hct 35.0 MCV 71.2 L MCH 22.2 L MCHC 31.2 L RDW 20.5 H Plt Count 476 H MPV 8.2 Sodium 138 Potassium 4.8 Chloride 105 Carbon Dioxide 22 Anion Gap 10 BUN 14.4 Creatinine 0.9 Est GFR (CKD-EPI)AfAm 88.87 Est GFR (CKD-EPI)NonAf 76.68 POC Glucometer 314 Random Glucose 261 H Calcium 9.4 Phosphorus 3.4 Magnesium 2.3 03/27/19 03/27/19 03/27/19 06:49 11:42 16:50 WBC RBC Hgb Hct MCV MCH MCHC RDW Plt Count MPV Sodium Potassium Chloride Carbon Dioxide Anion Gap BUN Creatinine Est GFR (CKD-EPI)AfAm Est GFR (CKD-EPI)NonAf POC Glucometer 276 312 367 Random Glucose Calcium Phosphorus Magnesium Active Medications Generic Name Dose Route Start Last Admin Trade Name Freq PRN Reason Stop Dose Admin Albuterol Sulfate 1 amp 03/25/19 21:06 Ventolin 0.083% Nebulizer Soln - NEB Q6H PRN wheezing Albuterol/Ipratropium 1 amp 03/25/19 20:00 03/27/19 07:35 Duoneb - NEB 1 amp RQID KAREN Administration Budesonide/Formoterol Fumarate 2 puff 03/25/19 22:00 03/27/19 10:19 Symbicort 160/4.5mcg - IH 2 puff BID KAREN Administration Elvitegravir/Cobicis/Emtricit/Tenof 1 tab 03/26/19 10:00 03/27/19 10:19 Genvoya (Non-Formulary) PO 1 tab DAILY KAREN Administration Heparin Sodium (Porcine) 5,000 unit 03/26/19 22:00 03/27/19 14:51 Heparin - SQ 5,000 unit TID KAREN Administration Insulin Aspart 0 vial 03/25/19 22:00 03/27/19 16:51 Novolog Vial Sliding Scale - SQ 10 units ACHS KAREN Administration Protocol Methylprednisolone Sodium Succinate 60 mg 03/25/19 19:00 03/27/19 10:18 Solu-Medrol - IVPUSH 60 mg Q8H-IV KAREN Administration Montelukast Sodium 10 mg 03/26/19 22:00 03/26/19 21:39 Singulair - PO 10 mg HS KAREN Administration ASSESSMENT/PLAN: 48 y/o F, pmh of asthma w/ multiple exacerbations and hospitalizations, DM, HTN , morbid obesity, PUMA and HIV on genvoya, presented for chest pain and shortness of breath. #SOB likely 2/2 to Acute asthma exacerbation Pt on solumedrol 60 Q8 IV push. Will tentatively taper tomorrow. nebulizers cont singular, symbicort CXR normal #Atypical Chest pain likely 2/2 to asthma exacerbation related exertional pain EKG normal Cardio cleared pt- V-tach from overnight was likely an artifact Pt to tele Echo not informative as images suboptimal. No estimation of Ef can be made. Consider repeat echocardiogram. Replete phosphates #HIV ID on board. will cont Genvoya #DM SSI #Dvt ppx SCDs FEN: monitor lytes Diabetic diet Dispo: Tele Visit type - Emergency Visit Emergency Visit: Yes ED Registration Date: 03/25/19 Care time: The patient presented to the Emergency Department on the above date and was hospitalized for further evaluation of their emergent condition. - New Patient This patient is new to me today: No - Critical Care Critical Care patient: No - Discharge Referral Referred to [facility] Med P.C.: No ATTENDING PHYSICIAN STATEMENT I saw and evaluated the patient. I reviewed the resident's note and discussed the case with the resident. I agree with the resident's findings and plan as documented. SUBJECTIVE: OBJECTIVE: ASSESSMENT AND PLAN:
[2019-03-27] MEDS: MONTELUKAST NA 10 MG TABLET PO SCH (22:27)
[2019-03-28] MEDS: methylPREDNISolone NA SUCC 40 MG/1 ML VIAL IVPUSH SCH ×3 (01:40→17:19)
[2019-03-28] MEDS ORDERED: INSULIN SLIDING SCALE (NOVOLOG) 1 VIAL SQ ONE (06:31)
[2019-03-28] MEDS: INSULIN SLIDING SCALE (NOVOLOG) 1 VIAL SQ SCH ×5 (06:44→21:52)
[2019-03-28] MEDS: HEPARIN NA (PORCINE) 5,000 UNITS/ML 1ML VIAL SQ SCH ×3 (06:45→21:51)
[2019-03-28] MEDS: ALBUTEROL SO4 2.5/IPRATROPIUM 0.5 INH SOL 3 ML VIAL.NEB. NEB SCH ×4 (07:45→20:35)
[2019-03-28] MEDS: BUDESONIDE/FORMETEROL FUMARATE 160/4.5 mcg INHALER IH SCH ×2 (09:40→21:56)
[2019-03-28] MEDS: ELVITEG/COB/EMTRI/TENOF (GENVOYA) TABLET (NF) PO SCH (09:40)
--- NOTE | 2019-03-28 09:43 | PN ---
Progress Note, Physician Chief Complaint: feeling better Less SOB History of Present Illness: TELE: NSR - Current Medication List Current Medications: Active Medications Albuterol Sulfate (Ventolin 0.083% Nebulizer Soln -) 1 amp NEB Q6H PRN PRN Reason: wheezing Albuterol/Ipratropium (Duoneb -) 1 amp NEB RQID [facility] Last Admin: 03/28/19 07:45 Dose: 1 amp Budesonide/Formoterol Fumarate (Symbicort 160/4.5mcg -) 2 puff IH BID KAREN Last Admin: 03/28/19 09:40 Dose: 2 puff Elvitegravir/Cobicis/Emtricit/Tenof (Genvoya (Non-Formulary)) 1 tab PO DAILY [facility] Last Admin: 03/28/19 09:40 Dose: 1 tab Heparin Sodium (Porcine) (Heparin -) 5,000 unit SQ TID KAREN Last Admin: 03/28/19 06:45 Dose: 5,000 unit Insulin Aspart (Novolog Vial Sliding Scale -) 0 vial SQ ACHS [facility]; Protocol Last Admin: 03/28/19 06:44 Dose: 6 units Methylprednisolone Sodium Succinate (Solu-Medrol -) 60 mg IVPUSH Q8H-IV KAREN Last Admin: 03/28/19 09:39 Dose: 60 mg Montelukast Sodium (Singulair -) 10 mg PO HS [facility] Last Admin: 03/27/19 22:27 Dose: 10 mg - Objective Vital Signs: Vital Signs Temperature 98.0 F 03/28/19 08:35 Pulse Rate 81 03/28/19 08:35 Respiratory Rate 18 03/28/19 08:35 Blood Pressure 128/70 03/28/19 08:35 O2 Sat by Pulse Oximetry (%) 88 L 03/27/19 21:00 Constitutional: Yes: Calm Cardiovascular: Yes: Regular Rate and Rhythm Respiratory: Yes: Other (decreased air movement but no active wheezing) Gastrointestinal: Yes: Soft, Abdomen, Obese Edema: No Neurological: Yes: Alert, Oriented ...Motor Strength: WNL Labs: CBC, BMP 03/27/19 06:05 03/27/19 06:05 INR, PTT INR 1.17 (0.83-1.09) H 03/26/19 09:10 - ....Imaging EKG: Image Reviewed Assessment/Plan Assessment/Plan cxr: clear lungs ecg: sr nl intervals no ischemic changes echo 10/2017: nl lvef, no sig valve path tele: sr, artifact, no VT A/P: 48 f hx hiv, htn, dm, asthma here with sob, cp. SOB/ chest tightness: acute exacerbation asthma -cp atypical, seems related to asthma -ce's negx2, ecg wnl, no signs acs -symptoms seem likely due to asthma, have improved with tx of asthma as per pulmonary -echo technically difficult and non-diagnostic. Can repeat echo w/ contrast as outpatient. htn: -now normalized. VT: -per ER reports pt had episode of VT, vitals stable and given amio 150mg, then in sr -tele reviewed, no VT seen, had some artifact -lytes unremarkable. -On tele.
[2019-03-28] MEDS ORDERED: ALBUTEROL SO4 0.083% IH SOL 2.5 MG/3 ML VIAL.NEB. NEB PRN (10:00)
--- NOTE | 2019-03-28 10:04 | PN ---
Progress Note (short form) - Note Progress Note: Pulmonary OOB to chair subjective improvement Constitutional: Yes: Well Nourished, Calm, Obese Eyes: Yes: WNL HENT: Yes: WNL Neck: Yes: WNL Cardiovascular: Yes: Regular Rate and Rhythm, S1, S2 Respiratory: Yes: Wheezes (scattered mya wheezes) Gastrointestinal: Yes: Normal Bowel Sounds, Soft Extremities: Yes: WNL Edema: No Labs: noted Acute Asthma Exacerbation resolving Chest pain HIV Morbid Obesity - IV medrol reduced to 40mg Q6 - inhaled bronchodilators standing and PRN - singulair - monitor peak flow - O2 to keep SpO2 >90% - DVT prophylaxis Mitali MASON MD
[2019-03-28 10:12] LABS: HEMATOCRIT 34.6 % (32.4-45.2); HEMOGLOBIN 10.7 GM/dL (10.7-15.3); MCH 22.1 pg (25.7-33.7); MCHC 30.9 g/dl (32.0-36.0); MEAN CELL VOLUME 71.5 fl (80-96); PLATELET COUNT 464 K/MM3 (134-434); RBC 4.84 M/mm3 (3.60-5.2); WHITE BLOOD COUNT 16.3 K/mm3 (4.0-10.0)
[2019-03-28 10:32] LABS: BLOOD UREA NITROGEN 13.9 mg/dL (7-18); CALCIUM 9.3 mg/dL (8.5-10.1); POTASSIUM 4.4 mmol/L (3.5-5.1)
[2019-03-28] MEDS ORDERED: PT OWN MED DRAWER 7, Y5N ONE (13:37)
--- NOTE | 2019-03-28 14:18 | PN ---
Physical Exam: SUBJECTIVE: Patient seen and examined at bedside. She c/o of no issues overnight or events. She reports improvement. Denies f/c/n/v/d/sob/chest pain. OBJECTIVE: Vital Signs Period Temp Pulse Resp BP Sys/So Pulse Ox Last 24 Hr 97.4 F-98.0 F 74-90 16-20 128-148/70-93 88-98 GENERAL: The patient is awake, alert, and oriented but anxious and mildly distressed. EYES: PERRL, extraocular movements intact, sclera anicteric, conjunctiva clear. ENT: oropharynx clear without exudates, moist mucous membranes. NECK: full range of motion, supple. LUNGS: Breath sounds equal, clear to auscultation bilaterally, no wheezing heard from lungs. Wheezing heard from upper airways-improved. No crackles. HEART: Regular rate and rhythm, S1, S2 without murmur, rub or gallop. ABDOMEN: Soft but tender to palpation. ND, normoactive bowel sounds, no guarding , EXTREMITIES: 2+ pulses, warm, well-perfused, b/l pitting Edema 1+ NEUROLOGICAL: Cranial nerves II through XII grossly intact. Normal speech PSYCH: Normal mood, normal affect. Laboratory Results - last 24 hr CBC,CMP WBC 16.3 K/mm3 (4.0-10.0) H 03/28/19 09:18 RBC 4.84 M/mm3 (3.60-5.2) 03/28/19 09:18 Hgb 10.7 GM/dL (10.7-15.3) 03/28/19 09:18 Hct 34.6 % (32.4-45.2) 03/28/19 09:18 MCV 71.5 fl (80-96) L 03/28/19 09:18 MCH 22.1 pg (25.7-33.7) L 03/28/19 09:18 MCHC 30.9 g/dl (32.0-36.0) L 03/28/19 09:18 RDW 20.0 % (11.6-15.6) H 03/28/19 09:18 Plt Count 464 K/MM3 (134-434) H 03/28/19 09:18 MPV 8.0 fl (7.5-11.1) 03/28/19 09:18 Absolute Neuts (auto) 19.3 K/mm3 (1.5-8.0) H 03/26/19 09:10 Neutrophils % 92.7 % (42.8-82.8) H D 03/26/19 09:10 Neutrophils % (Manual) 93.9 % (42.8-82.8) H 03/26/19 09:10 Band Neutrophils % 0.0 % 03/26/19 09:10 Lymphocytes % 6.6 % (8-40) L D 03/26/19 09:10 Lymphocytes % (Manual) 5.1 % (8-40) L D 03/26/19 09:10 Monocytes % 0.3 % (3.8-10.2) L D 03/26/19 09:10 Monocytes % (Manual) 1 % (3.8-10.2) L 03/26/19 09:10 Eosinophils % 0.0 % (0-4.5) D 03/26/19 09:10 Eosinophils % (Manual) 0.0 % (0-4.5) 03/26/19 09:10 Basophils % 0.4 % (0-2.0) 03/26/19 09:10 Basophils % (Manual) 0.0 % (0-2.0) 03/26/19 09:10 Myelocytes % (Man) 0 % (0-2) 03/26/19 09:10 Promyelocytes % (Man) 0 % (0-2) 03/26/19 09:10 Blast Cells % (Manual) 0 % (0-0) 03/26/19 09:10 Nucleated RBC % 0 % (0-0) 03/26/19 09:10 Metamyelocytes 0 % (0-2) D 03/26/19 09:10 Hypochromia 0 03/26/19 09:10 Platelet Estimate Normal 03/26/19 09:10 Polychromasia 1+ 03/26/19 09:10 Anisocytosis 1+ 03/26/19 09:10 Microcytosis 1+ 03/26/19 09:10 Macrocytosis 0 03/26/19 09:10 Rick Cells 1+ 03/26/19 09:10 Schistocytes 1+ 03/26/19 09:10 Sodium 137 mmol/L (136-145) 03/28/19 09:18 Potassium 4.4 mmol/L (3.5-5.1) 03/28/19 09:18 Chloride 104 mmol/L (98-107) 03/28/19 09:18 Carbon Dioxide 24 mmol/L (21-32) 03/28/19 09:18 Anion Gap 9 MMOL/L (8-16) 03/28/19 09:18 BUN 13.9 mg/dL (7-18) 03/28/19 09:18 Creatinine 1.0 mg/dL (0.55-1.3) 03/28/19 09:18 Est GFR (CKD-EPI)AfAm 78.24 03/28/19 09:18 Est GFR (CKD-EPI)NonAf 67.51 03/28/19 09:18 POC Glucometer 314 UNITS (80-120) 03/28/19 11:48 Random Glucose 317 mg/dL (74-106) H 03/28/19 09:18 Calcium 9.3 mg/dL (8.5-10.1) 03/28/19 09:18 Phosphorus 3.4 mg/dL (2.5-4.9) 03/27/19 06:05 Magnesium 2.3 mg/dL (1.8-2.4) 03/27/19 06:05 Total Bilirubin 0.4 mg/dL (0.2-1) 03/26/19 06:00 AST 9 U/L (15-37) L 03/26/19 06:00 ALT 16 U/L (13-61) 03/26/19 06:00 Alkaline Phosphatase 82 U/L (45-117) 03/26/19 06:00 Creatine Kinase 88 U/L (26-192) 03/25/19 11:00 Troponin I < 0.02 ng/ml (0.00-0.05) 03/25/19 21:35 B-Natriuretic Peptide 74.3 pg/ml (5-125) 03/25/19 11:00 Total Protein 7.7 g/dl (6.4-8.2) 03/26/19 06:00 Albumin 3.8 g/dl (3.4-5.0) 03/26/19 06:00 Active Medications Current Medications Albuterol Sulfate (Ventolin 0.083% Nebulizer Soln -) 1 amp NEB Q1H PRN PRN Reason: wheezing Albuterol/Ipratropium (Duoneb -) 1 amp NEB RQID [facility] Last Admin: 03/28/19 12:09 Dose: 1 amp Budesonide/Formoterol Fumarate (Symbicort 160/4.5mcg -) 2 puff IH BID [facility] Last Admin: 03/28/19 09:40 Dose: 2 puff Elvitegravir/Cobicis/Emtricit/Tenof (Genvoya (Non-Formulary)) 1 tab PO DAILY [facility] Last Admin: 03/28/19 09:40 Dose: 1 tab Heparin Sodium (Porcine) (Heparin -) 5,000 unit SQ TID [facility] Last Admin: 03/28/19 06:45 Dose: 5,000 unit Insulin Aspart (Novolog Vial Sliding Scale -) 1 vial SQ ACHS [facility]; Protocol Last Admin: 03/28/19 11:51 Dose: 8 units Methylprednisolone Sodium Succinate (Solu-Medrol -) 40 mg IVPUSH Q8H-IV KAREN Montelukast Sodium (Singulair -) 10 mg PO HS [facility] Last Admin: 03/27/19 22:27 Dose: 10 mg Home Medications Medication Instructions Recorded Elviteg/Cob/Emtri/Tenof Alafen 1 tab PO DAILY 02/19/17 [Genvoya (Non-Formulary)] Budesonide/Formeterol Fumarate 2 inh PO BID 02/20/17 [SYMBICORT 160/4.5mcg -] Albuterol 0.083% Nebulizer Rach 1 amp NEB Q6H PRN #30 amp 05/14/18 [Ventolin 0.083% Nebulizer Soln -] Albuterol Sulfate Inhaler - 1 puff IH Q4H PRN #1 inhaler 05/14/18 [Ventolin HFA Inhaler -] Tiotropium [place] [Spiriva 2 puff PO DAILY 03/26/19 Respimat] ASSESSMENT/PLAN: 48 y/o F, pmh of asthma w/ multiple exacerbations and hospitalizations, DM, HTN , morbid obesity, PUMA and HIV on genvoya, presented for chest pain and shortness of breath. #SOB likely 2/2 to Acute asthma exacerbation Pt on solumedrol 40 Q8 IV push (decreased from medrol 60 to 40 today) nebulizers cont singular 10mg po, symbicort #Atypical Chest pain likely 2/2 to asthma exacerbation related exertional pain Cardio cleared pt- V-tach from overnight was likely an artifact Echo- poor quality, will have to r/p- will f/u with cardio Replete phosphates #HIV will cont Genvoya #DM SSI #Dvt ppx SCDs FEN: monitor lytes Diabetic diet Dispo: f/u Echo, cont medrol and nebs, monitor on tele Visit type - Emergency Visit Emergency Visit: Yes ED Registration Date: 03/25/19 Care time: The patient presented to the Emergency Department on the above date and was hospitalized for further evaluation of their emergent condition. - New Patient This patient is new to me today: Yes Date on this admission: 03/28/19 - Critical Care Critical Care patient: No - Discharge Referral Referred to [facility] Med P.C.: No ATTENDING PHYSICIAN STATEMENT I saw and evaluated the patient. I reviewed the resident's note and discussed the case with the resident. I agree with the resident's findings and plan as documented. SUBJECTIVE: OBJECTIVE: ASSESSMENT AND PLAN:
--- NOTE | 2019-03-28 18:27 | PN ---
Teaching Attending Note Name of Resident: Chelsey Monzon ATTENDING PHYSICIAN STATEMENT I saw and evaluated the patient. I reviewed the resident's note and discussed the case with the resident. I agree with the resident's findings and plan as documented. SUBJECTIVE: No fever or chills. she feels better. No SEGURA . minimal abd pain. has cp with cough only OBJECTIVE: NAD CV: RRR. distant heart sounds Lungs: CTAB . good air entry . less upper airway noises Ext : minimal pitting edema on both LE ASSESSMENT AND PLAN: 48 y/o lady with h/o Asthma, Dm, anemia, HIV who presented with SOB and CP . She was found to have acute asthma exacerbation 1- Acute asthma exacerbation : - decrease steroids - Peak flow noted - NEbs - d/w Dr. menjivar. can switch to po steroids tomorrow 2- CP: atypical in nature. - tele . No events 3- Episode of tachycardia. NO arryhthmias on tele 4- HIV : cont Genvoya 5-H/o DM. H/o Type B lactic acidosis in 2017. she was taken off metformin. old charts reviewed. - cont SSI - at dc will send on Januvia. she ran out of her po meds and never renewed the prescription 6- H/o iron def anemia: - f/u as out pt for work up Dvt px
[2019-03-28] MEDS: MONTELUKAST NA 10 MG TABLET PO SCH (21:51)
[2019-03-29] MEDS: methylPREDNISolone NA SUCC 40 MG/1 ML VIAL IVPUSH SCH ×2 (01:45→10:03)
[2019-03-29] MEDS: INSULIN SLIDING SCALE (NOVOLOG) 1 VIAL SQ SCH ×2 (06:43→11:44)
[2019-03-29] MEDS: HEPARIN NA (PORCINE) 5,000 UNITS/ML 1ML VIAL SQ SCH (06:57)
--- NOTE | 2019-03-29 07:51 | PN ---
Progress Note, Physician Chief Complaint: sob, cp History of Present Illness: cp resolved. mild soreness L pectoral, worse with coughing. sob much improved no palp, syncope - Current Medication List Current Medications: Active Medications Albuterol Sulfate (Ventolin 0.083% Nebulizer Soln -) 1 amp NEB Q1H PRN PRN Reason: wheezing Albuterol/Ipratropium (Duoneb -) 1 amp NEB RQID [facility] Last Admin: 03/28/19 20:35 Dose: 1 amp Budesonide/Formoterol Fumarate (Symbicort 160/4.5mcg -) 2 puff IH BID [facility] Last Admin: 03/28/19 21:56 Dose: 2 puff Elvitegravir/Cobicis/Emtricit/Tenof (Genvoya (Non-Formulary)) 1 tab PO DAILY [facility] Last Admin: 03/28/19 09:40 Dose: 1 tab Heparin Sodium (Porcine) (Heparin -) 5,000 unit SQ TID [facility] Last Admin: 03/29/19 06:57 Dose: Not Given Insulin Aspart (Novolog Vial Sliding Scale -) 1 vial SQ ACHS [facility]; Protocol Last Admin: 03/29/19 06:43 Dose: 8 units Methylprednisolone Sodium Succinate (Solu-Medrol -) 40 mg IVPUSH Q8H-IV [facility] Last Admin: 03/29/19 01:45 Dose: 40 mg Montelukast Sodium (Singulair -) 10 mg PO HS [facility] Last Admin: 03/28/19 21:51 Dose: 10 mg - Objective Vital Signs: Vital Signs Temperature 98.1 F 03/29/19 06:00 Pulse Rate 67 03/29/19 06:00 Respiratory Rate 18 03/29/19 06:00 Blood Pressure 123/65 03/29/19 06:00 O2 Sat by Pulse Oximetry (%) 96 03/28/19 21:00 Constitutional: Yes: No Distress, Calm, Obese Cardiovascular: Yes: Regular Rate and Rhythm (decr intensity sounds (habitus)), S1, S2. No: Gallop, Murmur Respiratory: Yes: Regular, CTA Bilaterally. No: Accessory Muscle Use, Rales, Wheezes Extremities: No: Cold Edema: No Neurological: Yes: Alert, Oriented Psychiatric: No: Agitated Labs: INR, PTT INR 1.17 (0.83-1.09) H 03/26/19 09:10 Assessment/Plan cxr: clear lungs ecg: sr nl intervals no ischemic changes echo 10/2017: nl lvef, no sig valve path tele: NSR A/P: 48 f hx hiv, htn, dm, asthma here with sob, cp. acute exacerbation asthma, chest pain secondary to work of breathing/ bronchospasm: -ce's negx2, ecg wnl, no signs acs -symptoms improved with tx of asthma as per pulmonary -echo technically difficult and non-diagnostic. Can repeat echo w/ contrast as outpatient. htn: -initially elevated sec to acute resp distress. bp now normalized. VT: -ER concern for episode of VT, vitals stable and given amio 150mg, then in sr -tele reviewed, no VT seen, had some artifact -lytes unremarkable. D/C TELE
[2019-03-29 07:55] LABS: HEMATOCRIT 35.6 % (32.4-45.2); HEMOGLOBIN 11.1 GM/dL (10.7-15.3); MCH 22.3 pg (25.7-33.7); MCHC 31.1 g/dl (32.0-36.0); MEAN CELL VOLUME 71.8 fl (80-96); MEAN PLT VOLUME 8.2 fl (7.5-11.1); PLATELET COUNT 444 K/MM3 (134-434); RBC 4.96 M/mm3 (3.60-5.2); RDW 19.9 % (11.6-15.6); WHITE BLOOD COUNT 16.8 K/mm3 (4.0-10.0)
[2019-03-29 08:12] LABS: ALBUMIN 3.4 g/dl (3.4-5.0); BILIRUBIN,TOTAL 0.3 mg/dL (0.2-1); BLOOD UREA NITROGEN 18.2 mg/dL (7-18); CALCIUM 9.2 mg/dL (8.5-10.1); POTASSIUM 4.6 mmol/L (3.5-5.1); TOT PROT 6.8 g/dl (6.4-8.2)
[2019-03-29] MEDS: ALBUTEROL SO4 2.5/IPRATROPIUM 0.5 INH SOL 3 ML VIAL.NEB. NEB SCH ×2 (08:19→11:19)
[2019-03-29] MEDS ORDERED: PT OWN MED DRAWER 7, Y5N ONE (09:58)
[2019-03-29] MEDS: BUDESONIDE/FORMETEROL FUMARATE 160/4.5 mcg INHALER IH SCH (10:06)
--- NOTE | 2019-03-29 10:21 | PN ---
Progress Note (short form) - Note Progress Note: Pulmonary OOB to chair subjective improvement Agree with discharge plans Constitutional: Yes: Well Nourished, Calm, Obese Eyes: Yes: WNL HENT: Yes: WNL Neck: Yes: WNL Cardiovascular: Yes: Regular Rate and Rhythm, S1, S2 Respiratory: Yes: Wheezes (scattered mya wheezes) Gastrointestinal: Yes: Normal Bowel Sounds, Soft Extremities: Yes: WNL Edema: No Labs: noted Acute Asthma Exacerbation resolving Chest pain HIV Morbid Obesity - Taper prednisone as outpatient - inhaled bronchodilators standing and PRN - singulair - monitor peak flow - O2 to keep SpO2 >90% - DVT prophylaxis Mitali MASON MD
[2019-03-29] MEDS: ELVITEG/COB/EMTRI/TENOF (GENVOYA) TABLET (NF) PO SCH (11:35)
--- NOTE | 2019-03-29 12:05 | PN ---
Teaching Attending Note Name of Resident: Corwin Waters ATTENDING PHYSICIAN STATEMENT I saw and evaluated the patient. I reviewed the resident's note and discussed the case with the resident. I agree with the resident's findings and plan as documented. SUBJECTIVE: she feels her breathing is better. No fever or chills. cough is better , with little amount of whitish sticky sputum. no diarrhea OBJECTIVE: NAD CV: RRR. distant heart sounds Lungs: CTAB . good air entry bilaterally Ext : minimal pitting edema on both LE ASSESSMENT AND PLAN: 48 y/o lady with h/o Asthma, Dm, anemia, HIV who presented with SOB and CP . She was found to have acute asthma exacerbation 1- Acute asthma exacerbation : - start prednisone taper - NEbs and inhalers as out pt - f/u with pulm 2- CP: atypical in nature. - tele . No events - f/u with card for repeat echo as outpt 3- Episode of tachycardia. NO arryhthmias on tele 4- HIV : cont Genvoya 5-H/o DM. H/o Type B lactic acidosis in 2017. start januvia at DC 6- H/o iron def anemia: - f/u as out pt for work up dc home . d/w her
--- NOTE | 2019-03-29 12:35 | DS ---
Physical Exam: SUBJECTIVE: Patient seen and examined at bedside. Pt has no c/o of issues overnight or events. She reports improvement in her symptoms. She is currently asymptomatic and afebrile Denies f/c/n/v/d/sob/chest pain. OBJECTIVE: Vital Signs Period Temp Pulse Resp BP Sys/So Pulse Ox Last 24 Hr 97.6 F-98.2 F 67-108 18-19 119-157/65-84 96-96 PHYSICAL EXAM GENERAL: AOx3, NAD EYES: PERRL, extraocular movements intact, sclera anicteric, conjunctiva clear. ENT: oropharynx clear without exudates, moist mucous membranes. NECK: full range of motion, supple. LUNGS: Breath sounds equal, clear to auscultation bilaterally, no crackles, no wheezing heard from lungs. Wheezing heard from upper airways-improved HEART: RRR, no M/G/R ABDOMEN: Soft but tender to palpation. ND, normoactive bowel sounds, no guarding , EXTREMITIES: 2+ pulses, warm, well-perfused, edema improved b/l NEUROLOGICAL: Cranial nerves II through XII grossly intact. Normal speech PSYCH: Normal mood, normal affect. LABS Laboratory Results - last 24 hr 03/29/19 03/29/19 03/29/19 06:50 06:50 11:21 WBC 16.8 H RBC 4.96 Hgb 11.1 Hct 35.6 MCV 71.8 L MCH 22.3 L MCHC 31.1 L RDW 19.9 H Plt Count 444 H MPV 8.2 Sodium 137 Potassium 4.6 Chloride 104 Carbon Dioxide 24 Anion Gap 9 BUN 18.2 H Creatinine 1.0 Est GFR (CKD-EPI)AfAm 78.24 Est GFR (CKD-EPI)NonAf 67.51 POC Glucometer 253 Random Glucose 287 H Calcium 9.2 Total Bilirubin 0.3 AST 6 L ALT 20 Alkaline Phosphatase 66 Total Protein 6.8 Albumin 3.4 Current Medications Albuterol Sulfate (Ventolin 0.083% Nebulizer Soln -) 1 amp NEB Q1H PRN PRN Reason: wheezing Albuterol/Ipratropium (Duoneb -) 1 amp NEB RQID KAREN Last Admin: 03/29/19 11:19 Dose: 1 amp Budesonide/Formoterol Fumarate (Symbicort 160/4.5mcg -) 2 puff IH BID KAREN Last Admin: 03/29/19 10:06 Dose: 2 puff Elvitegravir/Cobicis/Emtricit/Tenof (Genvoya (Non-Formulary)) 1 tab PO DAILY [facility] Last Admin: 03/29/19 11:35 Dose: 1 tab Heparin Sodium (Porcine) (Heparin -) 5,000 unit SQ TID [facility] Last Admin: 03/29/19 06:57 Dose: Not Given Insulin Aspart (Novolog Vial Sliding Scale -) 1 vial SQ ACHS [facility]; Protocol Last Admin: 03/29/19 11:44 Dose: 6 units Methylprednisolone Sodium Succinate (Solu-Medrol -) 40 mg IVPUSH Q8H-IV [facility] Last Admin: 03/29/19 10:03 Dose: 40 mg Montelukast Sodium (Singulair -) 10 mg PO HS [facility] Last Admin: 03/28/19 21:51 Dose: 10 mg HOSPITAL COURSE: Date of Admission:03/25/19 48 y/o F, pmh of asthma w/ multiple exacerbations and hospitalizations, DM, HTN , morbid obesity, PUMA and HIV on genvoya, presented for chest pain and shortness of breath. We r/o ACS with EKG showing NSR, nl intervals, nl rhythm. No ST-T wave abnormalities and trops negative. We also r/o PE with a duplex of the legs, showing no DVTs. Pt had a suspected V-tachy from overnight, which was likely an artifact. We worked up pt for asthma exacerbation w/ an CXR that was negative for acute changes. We found that her symptoms were as a results of Asthma exacerbation causing atypical chest pain and shortness of breath, started pt on solumedrol 60mg, dounebs, and inhalers. Pt symptoms began to improve and solumedrol was decreased to 40mg. Pt was sent home on a prednisone taper 40mg 3 days, then 30mg 3 days, then 20mg 3 days and finally 10mg for 3 days. She was also sent home on Januvia 100mg daily. 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 CXR- no acute hanges EKG-->nl intervals, nl rhythm. No ST-T wave abnormalities appreciated. Echo- poor quality, will have to r/p outpt Duplex: No DVT Date of Discharge: 03/29/19 Minutes to complete discharge: 35 Discharge Summary Problems reviewed: Yes Reason For Visit: CHEST PAIN Current Active Problems Asthma exacerbation (Acute) Condition: Improved - Instructions Diet, Activity, Other Instructions: You were admitted to the Hospital for shortness of breath and chest pain While you were in the hospital, we evaluated you with lab work, blood work, imaging including x rays of your chest and Echocardiogram of your heart. We found that your symptoms were caused by an exacerbation of your Asthma. We treated you with medications including steroids and inhalers, and your symptoms improved significantly. Medications: Please resume all of your home medications in addition: please take the following medication as instructed: Prednisone taper 40 mg for three days starting today on 03/29/19 to 03/31/19 30 mg from 04/01/19 to 04/03/19, 20 mg from 04/04/19 to 04/06/19 10 mg from 04/07/19 to 04/09/19 then stop . do not stop your prednisone abruptly on your own Please also take Januvia 100 mg daily by mouth for your diabetes Please take singulair daily . 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 remember you can't take metformin Follow up with your primary care physician in 1 week Please follow up with Dr. Meyer in 1 week Please follow up with Dr. Bermeo follow with dr. Howell from cardiology Return to the emergency room if you experience worsening of your symptoms, chest pain, abdominal pain, shortness of breath, nausea or vomiting. You need work up for your anemia. please notify your primary care doctor Referrals: Joshua Bermeo MD [Staff Physician] - Carla Jiménez MD [Primary Care Provider] - Ramírez Howell MD [Staff Physician] - Polly Meyer MD [Staff Physician] - Disposition: HOME - Home Medications Comprehensive Discharge Medication List: Ambulatory Orders Elviteg/Cob/Emtri/Tenof Alafen [Genvoya (Non-Formulary)] 1 tab PO DAILY Budesonide/Formeterol Fumarate [SYMBICORT 160/4.5mcg -] 2 inh PO BID 02/20/17 Albuterol 0.083% Nebulizer Rach [Ventolin 0.083% Nebulizer Soln -] 1 amp NEB Q6H PRN #30 amp 05/14/18 Albuterol Sulfate Inhaler - [Ventolin HFA Inhaler -] 1 - 2 inh PO Q4H #1 inhaler 03/29/19 Montelukast Na [Singulair -] 10 mg PO HS #30 tablet 03/29/19 Prednisone See Taper PO DAILY #30 tablet 03/29/19 Sitagliptin Phosphate [Januvia] 100 mg PO DAILY #30 tablet 03/29/19 This patient is new to me today: Yes Date on this admission: 04/01/19 Emergency Visit: Yes ED Registration Date: 03/25/19 Care time: The patient presented to the Emergency Department on the above date and was hospitalized for further evaluation of their emergent condition. Critical Care patient: No - Discharge Referral Referred to [facility] No ATTENDING PHYSICIAN STATEMENT I saw and evaluated the patient. I reviewed the resident's note and discussed the case with the resident. I agree with the resident's findings and plan as documented. SUBJECTIVE: OBJECTIVE: ASSESSMENT AND PLAN:
[2019-03-29 13:22] VITALS: BP 123/63; PULSE 86; TEMP 97.8
== END 2019-03-29 15:20 | disposition home or self-care (01) | DRG 202 ==
LOC: JER 12:06 → INTOOBSV 15:26 → UNDOADMOB 15:26 → JERBED 15:26 → OBSVTOIN 18:51 → J4S 03-26 16:38
PROVIDERS: ADMIT Internal Medicine; ATTEND Internal Medicine
DX: J45.901 Unspecified asthma with (acute) exacerbation (principal); Z68.44 Body mass index [BMI] 60.0-69.9, adult; I47.2 Ventricular tachycardia; R07.89 Other chest pain; I10 Essential (primary) hypertension; E11.9 Type 2 diabetes mellitus without complications; E66.01 Morbid (severe) obesity due to excess calories; G47.33 Obstructive sleep apnea (adult) (pediatric); Z21 Asymptomatic human immunodeficiency virus [HIV] infection status; K58.9 Irritable bowel syndrome, unspecified; D50.9 Iron deficiency anemia, unspecified; R06.02 Shortness of breath
CPT/HCPCS: 36415; 36600; 71046-TC-FY; 80048; 80053; 82550; 82803; 82962; 83735; 83880; 84100; 84484; 84703; 85025; 85027; 85379; 85610; 85730; 87804; 93005; 93010; 93306-TC; 93971-TC; 94150; 94640; 99285-25; G0378; J1644

== ENCOUNTER 2019-05-06 12:41 | Inpatient (IN) | payer OTHER ==
--- NOTE | 2019-05-06 13:22 | PDOC ---
History of Present Illness - General Chief Complaint: Shortness of Breath Stated Complaint: SENT BY PCP/SOB Time Seen by Provider: 05/06/19 13:22 - History of Present Illness Initial Comments: 05/06/19 13:23 48 y/o female with PMH significant for morbid obesity, asthma, DM, HIV, fibromylagia who presents from PCP office for shortness of breath for 5 days after travelling to [place]. She also complained of L calf swelling and redness for 3 weeks. Her PCP was concerned of her story and advised her to go the ER to r/o DVT and PE. In addition the patient complains of lower abdominal panus swelling and suprapubic panus erythema and swelling with wound opening. She denies fevers, chest pain, lightheadedness, n/v/d/c. She feels that her sob is different than her asthma She was admitted to this facility in February 2019 for asthma exacerbation ROS GENERAL/CONSTITUTIONAL: No fever or chills. No weakness. HEAD, EYES, EARS, NOSE AND THROAT: No sore throat. CARDIOVASCULAR: No chest pain , + shortness of breath RESPIRATORY: No cough, wheezing, or hemoptysis. GASTROINTESTINAL: No nausea, vomiting, diarrhea or constipation. GENITOURINARY: No dysuria, frequency, or change in urination. MUSCULOSKELETAL: No joint or muscle swelling or pain. No neck or back pain. SKIN: No rash NEUROLOGIC: No headache, vertigo, loss of consciousness, or change in strength/ sensation. ENDOCRINE: No increased thirst. No abnormal weight change HEMATOLOGIC/LYMPHATIC: No anemia, easy bleeding, or history of blood clots. ALLERGIC/IMMUNOLOGIC: No hives or skin allergy. PE GENERAL: Awake, alert, and fully oriented, in no acute distress, morbidly obese HEAD: No signs of trauma, normocephalic, atraumatic EYES: EOMI, sclera anicteric, conjunctiva clear ENT: oropharynx clear without exudates. Moist mucosa NECK: Normal ROM, supple LUNGS: No distress, speaks full sentences, clear to auscultation bilaterally HEART: Regular rate and rhythm, normal S1 and S2, no murmurs, rubs or gallops, peripheral pulses normal and equal bilaterally. ABDOMEN: Soft, + panus 1+ pitting edema, +suprapubic panus erythema, small 1cm open wound w/ edema, No guarding, no rebound. No masses EXTREMITIES : Normal inspection, + L calf edema with erythema and calor NEUROLOGICAL: Cranial nerves II through XII grossly intact. Normal speech, normal gait, no focal sensorimotor deficits SKIN: Warm, Dry, see abdomen exam above MDM DDX including but not limited to:] r/o PE v DVT r/o pna cellulitis ED Course: labs at baseline of patient baseline leukocytosis D-dimer- negative Yelitza Stern, PGY2 Emergency Medicine 05/06/19 17:25 Past History - Past Medical History Allergies/Adverse Reactions: Allergies Allergy/AdvReac Type Severity Reaction Status Date / Time omeprazole magnesium Allergy Mild Hives Verified 05/06/19 12:48 [From [facility]] Home Medications: Ambulatory Orders Elviteg/Cob/Emtri/Tenof Alafen [Genvoya (Non-Formulary)] 1 tab PO DAILY Budesonide/Formeterol Fumarate [SYMBICORT 160/4.5mcg -] 2 inh PO BID 02/20/17 Albuterol 0.083% Nebulizer Rach [Ventolin 0.083% Nebulizer Soln -] 1 amp NEB Q6H PRN #30 amp 05/14/18 Albuterol Sulfate Inhaler - [Ventolin HFA Inhaler -] 1 - 2 inh PO Q4H #1 inhaler 03/29/19 Montelukast Na [Singulair -] 10 mg PO HS #30 tablet 03/29/19 Prednisone See Taper PO DAILY #30 tablet 03/29/19 Sitagliptin Phosphate [Januvia] 100 mg PO DAILY #30 tablet 03/29/19 Anemia: Yes (IRON DEF) Asthma: Yes Cancer: No Cardiac Disorders: No CVA: No COPD: No CHF: No DVT: No Dementia: No Diabetes: Yes Dialysis: No GI Disorders: No Disorders: No HTN: Yes Hypercholesterolemia: Yes Kidney Stones: No Liver Disease: No Psychiatric Problems: No Seizures: No Thyroid Disease: No Lung CA: No - Surgical History Abdominal Surgery: Yes Appendectomy: No Cardiac Surgery: No Cholecystectomy: No Lung Surgery: No Neurologic Surgery: No Orthopedic Surgery: No - Reproductive History (#): 6 Para: 5 Cervical CA: No Dysfunctional Uterine Bleeding: Yes Ectopic : No Endometrial CA: No Polycystic Ovaries: No Therapeutic (s) & number: No Tubal Ligation: No Spontaneous : 1 - Immunization History Immunization Up to Date: Yes - Psycho Social/Smoking Cessation Hx Smoking History: Never smoked Have you smoked in the past 12 months: No Hx Alcohol Use: No Drug/Substance Use Hx: No Substance Use Type: None Hx Substance Use Treatment: No *Physical Exam - Vital Signs Last Vital Signs Temp Pulse Resp BP Pulse Ox 98 F 100 H 18 121/88 96 05/06/19 12:45 05/06/19 12:45 05/06/19 12:45 05/06/19 12:45 05/06/19 12:45 ED Treatment Course - LABORATORY CBC & Chemistry Diagram: 05/06/19 15:54 05/06/19 15:54 Discharge - Follow up/Referral Referrals: Carla Jiménez MD [Primary Care Provider] - - Patient Discharge Instructions - Post Discharge Activity
--- NOTE | 2019-05-06 15:29 | EKG ---
Test Reason : Blood Pressure : / mmHG Vent. Rate : 086 BPM Atrial Rate : 086 BPM P-R Int : 132 ms QRS Dur : 098 ms QT Int : 386 ms P-R-T Axes : 015 026 007 degrees QTc Int : 461 ms NORMAL SINUS RHYTHM CANNOT RULE OUT ANTERIOR INFARCT (CITED ON OR BEFORE 07-JUN-2018) ABNORMAL ECG WHEN COMPARED WITH ECG OF 25-MAR-2019 12:13, NO SIGNIFICANT CHANGE WAS FOUND Confirmed by Rajesh Bell ([id number]) on 05/06/2019 3:28:41 PM Referred By: Confirmed By:Rajesh Bell
[2019-05-06 16:23] LABS: BASO % 0.7 % (0-2.0); EOS % 0.3 % (0-4.5); HEMATOCRIT 37.9 % (32.4-45.2); HEMOGLOBIN 11.5 GM/dL (10.7-15.3); LYMPH % 19.6 % (8-40); MCH 22.4 pg (25.7-33.7); MCHC 30.3 g/dl (32.0-36.0); MEAN CELL VOLUME 73.8 fl (80-96); NEUT % 72.4 % (42.8-82.8); PLATELET COUNT 388 K/MM3 (134-434); RBC 5.13 M/mm3 (3.60-5.2); RDW 19.9 % (11.6-15.6); WHITE BLOOD COUNT 14.1 K/mm3 (4.0-10.0)
[2019-05-06 16:37] LABS: INR 1.14 (0.83-1.09); PROTHROMBIN TIME (PATIENT) 13.5 SEC (9.7-13.0)
[2019-05-06 16:40] LABS: ACTIVATED PTT 28.4 SECONDS (25.2-36.5)
[2019-05-06 16:55] LABS: ALBUMIN 3.5 g/dl (3.4-5.0); ALK PHOS 81 U/L (45-117); ANION GAP 7 MMOL/L (8-16); BILIRUBIN,TOTAL 0.2 mg/dL (0.2-1); BLOOD UREA NITROGEN 8.4 mg/dL (7-18); CALCIUM 8.7 mg/dL (8.5-10.1); CHLORIDE 104 mmol/L (98-107); CO2 26 mmol/L (21-32); CREATININE 0.8 mg/dL (0.55-1.3); GLUCOSE,RANDOM 92 mg/dL (74-106); N-TERMINAL BNP 40.2 pg/ml (5-125); POTASSIUM 4.5 mmol/L (3.5-5.1); SGOT/AST 16 U/L (15-37); SGPT/ALT 19 U/L (13-61); SODIUM 137 mmol/L (136-145)
--- NOTE | 2019-05-06 17:07 | PDOC ---
Documentation entered by Dioni Zuleta SCRIBE, acting as scribe for Alessandro Mcnally MD. Alessandro Mcnally MD: This documentation has been prepared by the Song mendoza Daniel, SCRIBE, under my direction and personally reviewed by me in its entirety. I confirm that the documentation accurately reflects all work, treatment, procedures, and medical decision making performed by me. Attending Attestation - Resident Resident Name: Yelitza Stern - ED Attending Attestation I have performed the following: I have examined & evaluated the patient, The case was reviewed & discussed with the resident, I agree w/resident's findings & plan, Exceptions are as noted - HPI HPI: 05/06/19 16:28 The patient is a 48 year old female with a past medical history of morbid obesity, asthma, diabetes, HIV, and fibromyalgia here today for evaluation of shortness of breath. Patient reports that she traveled from [place] recently and developed shortness of breath 5 days ago. She also notes 3 weeks of left calf swelling and redness. She reports that initially presented to her PCP who sent her to the ER. She also notes pain and redness to the skin above her suprapubic region. Patient denies headache, lightheadedness. Denies fever, chills. Denies chest pain. Denies nausea, vomiting, diarrhea. Allergies: omeprazole magnesium PCP: Carla Jiménez - Physicial Exam PE: 05/06/19 16:29 See resident exam - Critical Care Time Total Critical Care Time: 60 Critical Care Statement: The care of this patient involved high complexity decision making to prevent further life threatening deterioration of the patient 's condition and/or to evaluate & treat vital organ system(s) failure or risk of failure. - Medical Decision Making 05/06/19 17:08 48 F with SOB, leg swelling. Will r/o DVT/PE. Pt also with cellulitis of her LLE and abdominal pannus. - Labs, Ddimer - CXR - IV abx
[2019-05-06] MEDS ORDERED: VANCOMYCIN HCL 2,000 MG in DEXTROSE 5%-WATER - 500 ML IVPB ONE (17:20)
[2019-05-06 18:48] LABS: ADD RBC MORPHOLOGY YES
[2019-05-06 18:49] LABS: ANISOCYTOSIS 1+; MACROCYTOSIS 1+; OVALOCYTE 1+; PLATELET ESTIMATE ADEQUATE
--- NOTE | 2019-05-06 19:23 | PN ---
Teaching Attending Note Name of Resident: Neda Potter ATTENDING PHYSICIAN STATEMENT I saw and evaluated the patient. I reviewed the resident's note and discussed the case with the resident. I agree with the resident's findings and plan as documented. SUBJECTIVE: Patient is a 48 year old woman with a PMH of Morbid obesity, Asthma, PUMA, NIDDM , HIV disease and Fibromylagia who presents from PCP's office for shortness of breath for 5 days after travelling to [place]. She also complained of left calf swelling and redness for 3 weeks. Her PCP was concerned of her story and advised her to go the ER to r/o DVT and PE. In addition, the patient complains of lower abdominal panus swelling and suprapubic panus erythema and swelling with wound opening. She denies fevers, chest pain, lightheadedness, nausea, vomiting, diarrhea or constipation. She feels that her SOB is different than her asthma. Admits to nonadherence with CPAP at home. Has never been intubated. She was admitted to this facility in February 2019 for asthma exacerbation. No sick contacts. Denies alcohol, tobacco or illicit drug use. Her LMP was April 10, 2019 and her periods are irregular. Has FH of diverticulitis, HTN, DM, IBS, fibromyalgia and SLE. OBJECTIVE: Alert Vital Signs Period Temp Pulse Resp BP Sys/So Pulse Ox Last 24 Hr 98 F 100 18 121/88 96-100 HEENT: No Jaundice, eye redness or discharge, PERRLA, EOMI. Normocephalic, atraumatic. External ears are normal and hearing is grossly intact. No nasal discharge. Neck: Supple, nontender. No palpable adenopathy or thyromegaly. No JVD Chest: Good effort. Diminished breath sounds. Clear to percussion. Heart: Regular. No S3, rub or murmur Abdomen: Not distended, soft, lower abdominal wall edema;tender. + panus 1+ pitting edema, +suprapubic panus erythema, possible groin abscess with an open draining wound, No guarding, no rebound. No HSM. No rebound or guarding. Normal bowel sounds. Extremities: Normal inspection; leg edema (L>R), LLE erythema+ L calf edema with erythema. Skin: Warm and dry. No petechiae, rash or ecchymosis. Neuro: Alert. Oriented x3. CN 2-12 grossly intact. Sensation grossly intact in all four extremities and DTR are symmetric. Psych: Appropriate mood and affect. Good insight. Home Medications Medication Instructions Recorded Elviteg/Cob/Emtri/Tenof Alafen 1 tab PO DAILY 02/19/17 [Genvoya (Non-Formulary)] Budesonide/Formeterol Fumarate 2 inh PO BID 02/20/17 [SYMBICORT 160/4.5mcg -] Albuterol 0.083% Nebulizer Rach 1 amp NEB Q6H PRN #30 amp 05/14/18 [Ventolin 0.083% Nebulizer Soln -] Albuterol Sulfate Inhaler - 1 - 2 inh PO Q4H #1 inhaler 03/29/19 [Ventolin HFA Inhaler -] Montelukast Na [Singulair -] 10 mg PO HS #30 tablet 03/29/19 Prednisone See Taper PO DAILY #30 tablet 03/29/19 Sitagliptin Phosphate [Januvia] 100 mg PO DAILY #30 tablet 03/29/19 Abnormal Lab Results 05/06/19 05/06/19 05/06/19 15:54 15:54 15:54 WBC 14.1 H MCV 73.8 L MCH 22.4 L MCHC 30.3 L RDW 19.9 H Absolute Neuts (auto) 10.2 H PT with INR 13.50 H INR 1.14 H Anion Gap 7 L ASSESSMENT AND PLAN: 1. Cellulitis of LLE/Abdominal wall and Possible groin abscess - Got one dose of IV vancomycin in the ER. Will continue on IV Doxycycline and consult ID. Will get CT abdomen/pelvis to evaluate abdominal wall edema and possible groin abscess that may need drainage. Etiology of SOB is unclear - may be PUMA, CHF or asthma exacerbation. Will get chest CTA, ABG and give one dose of lasix 60 mg IV (diagnostic/therapeutic) and get ECHO. Consult cardiology and pulmonary. No acute abnormality on CXR. EKG shows NSR with T wave inversion in III, aVF and V1. Initial troponin is negative. Will repeat EKG and troponin to rule out ACS. Will continue comprehensive care for all of patients comorbid conditions including HAART for HIV disease. 2. Morbid obesity Counseled on the risks associated with morbid obesity. Will provide patient all the necessary assistance, counseling and positive reinforcement to facilitate weight loss. Consult medical language specialist. 3. DVT prophylaxis - Lovenox 40 mg SQ q 12 hours. 4. Advance directives - Full code.
[2019-05-06] MEDS ORDERED: ALBUTEROL SO4 0.083% IH SOL 2.5 MG/3 ML VIAL.NEB. NEB PRN (22:38)
--- NOTE | 2019-05-06 23:09 | HP ---
CHIEF COMPLAINT:shortness of breath, leg swelling PCP: Dr. Jiménez HISTORY OF PRESENT ILLNESS: 48 yo F PMH of HTN, DM, PUMA( not compliant on CPAP), HIV (on genvoya), fibromyalgia, morbid obesity , asthma( never intubated) presented to ED from PCP office for shortness of breath and leg swelling. pt states that she has had shortness of breath for 5 days. she states this began when she was on the plane returning from [place]. she states that this shortness of breath feels different from her asthma as she is not wheezing. she has been having to use her rescue inhaler more frequently. she uses it 2x during the day and has woken up twice this week to have to use the rescue during the night. she states the leg swelling began 3 weeks ago before she traveled to [place]. she states that it has been progressively worsening and feels more" tight". she states while she was in [place] there were several days where she had "shaking of her legs" and weakness that made her need a cane to ambulate. she endorses chills but denies fevers, nausea, vomiting, diarrhea. ER course was notable for: (1) Leukocytosis 14.1 (2)CXR (3)IV Vanco Recent Travel: Travel to [place]. returned on 05/01/19 PAST MEDICAL HISTORY: see HPI PAST SURGICAL HISTORY: Csection Social History: Smoking:denies Alcohol:denies Drugs: denies Allergies omeprazole magnesium [From Prilosec] Allergy (Mild, Verified 05/06/19 12:48) Hives HOME MEDICATIONS: Home Medications Medication Instructions Recorded Elviteg/Cob/Emtri/Tenof Alafen 1 tab PO DAILY 02/19/17 [Genvoya (Non-Formulary)] Budesonide/Formeterol Fumarate 2 inh PO BID 02/20/17 [SYMBICORT 160/4.5mcg -] Albuterol 0.083% Nebulizer Rach 1 amp NEB Q6H PRN #30 amp 05/14/18 [Ventolin 0.083% Nebulizer Soln -] Albuterol Sulfate Inhaler - 1 - 2 inh PO Q4H #1 inhaler 03/29/19 [Ventolin HFA Inhaler -] Montelukast Na [Singulair -] 10 mg PO HS #30 tablet 03/29/19 Prednisone See Taper PO DAILY #30 tablet 03/29/19 Sitagliptin Phosphate [Januvia] 100 mg PO DAILY #30 tablet 03/29/19 REVIEW OF SYSTEMS CONSTITUTIONAL: Present: chills Absent: fever, diaphoresis, generalized weakness, malaise, loss of appetite, weight change HEENT: Absent: rhinorrhea, nasal congestion, throat pain, throat swelling, difficulty swallowing, mouth swelling, ear pain, eye pain, visual changes CARDIOVASCULAR: Absent: chest pain, syncope, palpitations, irregular heart rate, lightheadedness , peripheral edema RESPIRATORY: Present: shortness of breath, dyspnea with exertion, orthopnea Absent: cough, wheezing, stridor, hemoptysis GASTROINTESTINAL: Present: anasarca Absent: abdominal pain, abdominal distension, nausea, vomiting, diarrhea, constipation, melena, hematochezia GENITOURINARY: Absent: dysuria, frequency, urgency, hesitancy, hematuria, flank pain, genital pain MUSCULOSKELETAL: Present: L lower extremity swelling and pain Absent: myalgia, arthralgia, joint swelling, back pain, neck pain SKIN: Absent: rash, itching, pallor HEMATOLOGIC/IMMUNOLOGIC: Absent: easy bleeding, easy bruising, lymphadenopathy, frequent infections ENDOCRINE: Absent: unexplained weight gain, unexplained weight loss, heat intolerance, cold intolerance NEUROLOGIC: Absent: headache, focal weakness or paresthesias, dizziness, unsteady gait, seizure, mental status changes, bladder or bowel incontinence PSYCHIATRIC: Absent: anxiety, depression, suicidal or homicidal ideation, hallucinations. PHYSICAL EXAMINATION Vital Signs - 24 hr 05/06/19 05/06/19 05/06/19 12:45 15:20 20:45 Temperature 98 F 97.9 F Pulse Rate 100 H Pulse Rate [ 93 H Right Radial] Respiratory 18 20 Rate Blood Pressure 121/88 Blood Pressure 122/72 [Left Arm] O2 Sat by Pulse 96 100 97 Oximetry (%) GENERAL: Awake, alert, and fully oriented, in no acute distress.obese female HEAD: Normal with no signs of trauma. EYES: Pupils equal, round and reactive to light, extraocular movements intact EARS, NOSE, THROAT: oropharynx clear without exudates. Moist mucous membranes. NECK: Normal range of motion, supple without lymphadenopathy LUNGS: Breath sounds decreased b/l. No accessory muscle use. HEART: Regular rate and rhythm, + S1 and S2 ABDOMEN: Soft, nontender, not distended,pittng edema throughout lower abdomen. erythematous, hard, tender abscess under abdominal pannus R groin Lower Extremities:L side erythema and edema. no open wound R side pitting edema UPPER EXTREMITIES: 2+ pulses, warm, well-perfused. No cyanosis. No clubbing. No peripheral edema. NEUROLOGICAL: Cranial nerves II-XII intact. Normal speech. PSYCHIATRIC: Cooperative. Good eye contact. Appropriate mood and affect. SKIN: Warm, dry, normal turgor, no rashes or lesions noted, normal capillary refill. Laboratory Last Values WBC 14.1 K/mm3 (4.0-10.0) H 05/06/19 15:54 RBC 5.13 M/mm3 (3.60-5.2) 05/06/19 15:54 Hgb 11.5 GM/dL (10.7-15.3) 05/06/19 15:54 Hct 37.9 % (32.4-45.2) 05/06/19 15:54 MCV 73.8 fl (80-96) L 05/06/19 15:54 MCH 22.4 pg (25.7-33.7) L 05/06/19 15:54 MCHC 30.3 g/dl (32.0-36.0) L 05/06/19 15:54 RDW 19.9 % (11.6-15.6) H 05/06/19 15:54 Plt Count 388 K/MM3 (134-434) 05/06/19 15:54 MPV 8.0 fl (7.5-11.1) 05/06/19 15:54 Absolute Neuts (auto) 10.2 K/mm3 (1.5-8.0) H 05/06/19 15:54 Neutrophils % 72.4 % (42.8-82.8) D 05/06/19 15:54 Lymphocytes % 19.6 % (8-40) D 05/06/19 15:54 Monocytes % 7.0 % (3.8-10.2) D 05/06/19 15:54 Eosinophils % 0.3 % (0-4.5) D 05/06/19 15:54 Basophils % 0.7 % (0-2.0) 05/06/19 15:54 Nucleated RBC % 0 % (0-0) 05/06/19 15:54 Hypochromia 1+ 05/06/19 15:54 Platelet Estimate Adequate 05/06/19 15:54 Platelet Comment Giant platelets 05/06/19 15:54 Polychromasia 1+ 05/06/19 15:54 Poikilocytosis 1+ 05/06/19 15:54 Anisocytosis 1+ 05/06/19 15:54 Microcytosis 1+ 05/06/19 15:54 Macrocytosis 1+ 05/06/19 15:54 Ovalocytes 1+ 05/06/19 15:54 PT with INR 13.50 SEC (9.7-13.0) H 05/06/19 15:54 INR 1.14 (0.83-1.09) H 05/06/19 15:54 PTT (Actin FS) 28.4 SECONDS (25.2-36.5) 05/06/19 15:54 D-Dimer 315 ng/ml (0-500) 05/06/19 15:54 Sodium 137 mmol/L (136-145) 05/06/19 15:54 Potassium 4.5 mmol/L (3.5-5.1) 05/06/19 15:54 Chloride 104 mmol/L (98-107) 05/06/19 15:54 Carbon Dioxide 26 mmol/L (21-32) 05/06/19 15:54 Anion Gap 7 MMOL/L (8-16) L 05/06/19 15:54 BUN 8.4 mg/dL (7-18) 05/06/19 15:54 Creatinine 0.8 mg/dL (0.55-1.3) 05/06/19 15:54 Est GFR (CKD-EPI)AfAm 102.47 05/06/19 15:54 Est GFR (CKD-EPI)NonAf 88.41 05/06/19 15:54 Random Glucose 92 mg/dL (74-106) 05/06/19 15:54 Calcium 8.7 mg/dL (8.5-10.1) 05/06/19 15:54 Total Bilirubin 0.2 mg/dL (0.2-1) 05/06/19 15:54 AST 16 U/L (15-37) 05/06/19 15:54 ALT 19 U/L (13-61) 05/06/19 15:54 Alkaline Phosphatase 81 U/L (45-117) 05/06/19 15:54 Troponin I < 0.02 ng/ml (0.00-0.05) 05/06/19 15:54 B-Natriuretic Peptide 40.2 pg/ml (5-125) 05/06/19 15:54 Total Protein 7.0 g/dl (6.4-8.2) 05/06/19 15:54 Albumin 3.5 g/dl (3.4-5.0) 05/06/19 15:54 Beta HCG, Quant < 1.0 mIU/ml 05/06/19 15:54 ASSESSMENT/PLAN: 48 yo F PMH of HTN, DM, PUMA( not compliant on CPAP), HIV (on genvoya), fibromyalgia, morbid obesity , asthma( never intubated) presented to ED from PCP office for shortness of breath and leg swelling. Pt is admitted for cellulitis Cellulitis -leukocytosis, afebrile -pending Bcx - Abdomen/ Pelvis CT to further visualize groin abscess. consider U/s to better visualize. recommending surgery consult for possible drainage -s/p Vanco in ED - c/w doxy -ID recs appreciated Shortness of breath 2/2 HF vs asthma vs PE -BNP is poor marker and can be falsely negative in obese as peripheral fat can metabolize BNP. -Echo from February shows poor visualization 2/2 body habitus. will rpt -Will obtain CTA to r/o CTA -will try Lasix 60 IV , strict I/Os, daily weights . 90 min after lasix administered, U [id number] - continue with singulair, symbicort , ventolin for the asthma -duonebs -ABG shows hypoxemia, will start 2L NC -Pulm recs appreciated -Cardio recs appreciated DM -hold Januvia -ISS, BGM HIV -continue genvoya PUMA -educated on compliance and importance of CPAP DVT ppx:lovenox F/E/N - monitor lytes -sodium/diabetic diet Dispo: admit to medicine Visit type - Emergency Visit Emergency Visit: Yes ED Registration Date: 05/06/19 Care time: The patient presented to the Emergency Department on the above date and was hospitalized for further evaluation of their emergent condition. - New Patient This patient is new to me today: Yes Date on this admission: 05/07/19 - Critical Care Critical Care patient: No ATTENDING PHYSICIAN STATEMENT I saw and evaluated the patient. I reviewed the resident's note and discussed the case with the resident. I agree with the resident's findings and plan as documented. SUBJECTIVE: OBJECTIVE: ASSESSMENT AND PLAN:
[2019-05-07] MEDS ORDERED: FUROSEMIDE 40 MG/4 ML INJECTABLE VIAL IVPUSH ONE (00:21)
[2019-05-07 00:50] LABS: ARTERIAL BLD GAS O2 SATURATION 95.2 % (95-98); ARTERIAL BLOOD GAS BASE EXCESS 0 meq/l (-2-2); ARTERIAL BLOOD GAS PCO2 44.2 mmHg (35-45); ARTERIAL BLOOD GAS PO2 77.7 mmHg (80-100); ARTERIAL BLOOD GAS pH 7.37 (7.35-7.45)
[2019-05-07 01:10] LABS: ALLENS TEST POSITIVE
[2019-05-07] MEDS ORDERED: ALBUTEROL SO4 2.5/IPRATROPIUM 0.5 INH SOL 3 ML VIAL.NEB. NEB ONE (02:13)
[2019-05-07] MEDS: INSULIN SLIDING SCALE (NOVOLOG) 1 VIAL SQ SCH ×4 (06:24→20:59)
[2019-05-07 07:59] LABS: ALBUMIN 3.4 g/dl (3.4-5.0); BILIRUBIN,TOTAL 0.4 mg/dL (0.2-1); BLOOD UREA NITROGEN 13.4 mg/dL (7-18); CALCIUM 8.9 mg/dL (8.5-10.1); CREATININE 0.9 mg/dL (0.55-1.3); MAGNESIUM 2.1 mg/dL (1.8-2.4); PHOSPHOROUS 3.9 mg/dL (2.5-4.9); POTASSIUM 3.8 mmol/L (3.5-5.1); TOT PROT 6.7 g/dl (6.4-8.2)
[2019-05-07 08:40] LABS: HEMATOCRIT 36.6 % (32.4-45.2); HEMOGLOBIN 11.2 GM/dL (10.7-15.3); MCH 22.5 pg (25.7-33.7); MCHC 30.7 g/dl (32.0-36.0); MEAN PLT VOLUME 8.3 fl (7.5-11.1); PLATELET COUNT 363 K/MM3 (134-434); RBC 5.01 M/mm3 (3.60-5.2); RDW 19.7 % (11.6-15.6); WHITE BLOOD COUNT 15.1 K/mm3 (4.0-10.0)
[2019-05-07] MEDS ORDERED: DOXYCYCLINE HYCLATE 100 MG VIAL ONE (09:20)
[2019-05-07] MEDS ORDERED: DEXTROSE 5%-WATER 100 ML IVPB ONE (09:20)
[2019-05-07] MEDS: ENOXAPARIN NA (PORCINE) 40 MG/0.4 ML DISP.SYRIN SQ SCH (09:28)
[2019-05-07] MEDS: BUDESONIDE/FORMETEROL FUMARATE 160/4.5 mcg INHALER IH SCH ×2 (09:28→21:00)
[2019-05-07] MEDS: ELVITEG/COB/EMTRI/TENOF (GENVOYA) TABLET (NF) PO SCH (09:30)
[2019-05-07] MEDS ORDERED: DOXYCYCLINE INJECTION 100 MG in DEXTROSE 5%-WATER 100 ML IVPB SCH (10:00)
--- NOTE | 2019-05-07 10:42 | PN ---
Progress Note (short form) - Note Progress Note: Patient is a 48yoF with PMHx of HTN, DM, PUMA( not compliant on CPAP), HIV (on genvoya), fibromyalgia, morbid obesity , asthma( never intubated) presented to ED from PCP office for shortness of breath and leg swelling. Patient is feeling better c/o having abdominal redness. Vital Signs Temperature 97.5 F L 05/07/19 04:38 Pulse Rate 92 H 05/07/19 04:38 Respiratory Rate 18 05/07/19 04:38 Blood Pressure 132/78 05/07/19 04:38 O2 Sat by Pulse Oximetry (%) 97 05/06/19 20:45 GENERAL: The patient is awake, alert, and fully oriented, in no acute distress. HEAD: Normal with no signs of trauma. EYES: PERRL, extraocular movements intact, sclera anicteric, conjunctiva clear. ENT: Ears normal, oropharynx clear without exudates, moist mucous membranes. NECK: Trachea midline, full range of motion, supple. LUNGS: Breath sounds equal, clear to auscultation bilaterally, no wheezes, no crackles, no accessory muscle use. HEART: Regular rate and rhythm, S1, S2 without murmur, rub or gallop. ABDOMEN: Soft, nontender, large abdomen, mild erythema of the abdomen, normoactive bowel sounds, no guarding, no rebound, no hepatosplenomegaly, no masses. EXTREMITIES: 2+ pulses, warm, well-perfused, no edema. NEUROLOGICAL: Cranial nerves II through XII grossly intact. Normal speech, gait not observed. PSYCH: Normal mood, normal affect. SKIN: Warm, dry, normal turgor, no rashes or lesions noted CBCD WBC 15.1 K/mm3 (4.0-10.0) H 05/07/19 06:55 RBC 5.01 M/mm3 (3.60-5.2) 05/07/19 06:55 Hgb 11.2 GM/dL (10.7-15.3) 05/07/19 06:55 Hct 36.6 % (32.4-45.2) 05/07/19 06:55 MCV 73.0 fl (80-96) L 05/07/19 06:55 MCHC 30.7 g/dl (32.0-36.0) L 05/07/19 06:55 RDW 19.7 % (11.6-15.6) H 05/07/19 06:55 Plt Count 363 K/MM3 (134-434) 05/07/19 06:55 MPV 8.3 fl (7.5-11.1) 05/07/19 06:55 CMP Sodium 136 mmol/L (136-145) 05/07/19 06:55 Potassium 3.8 mmol/L (3.5-5.1) 05/07/19 06:55 Chloride 101 mmol/L (98-107) 05/07/19 06:55 Carbon Dioxide 26 mmol/L (21-32) 05/07/19 06:55 Anion Gap 9 MMOL/L (8-16) 05/07/19 06:55 BUN 13.4 mg/dL (7-18) 05/07/19 06:55 Creatinine 0.9 mg/dL (0.55-1.3) 05/07/19 06:55 Random Glucose 134 mg/dL (74-106) H 05/07/19 06:55 Calcium 8.9 mg/dL (8.5-10.1) 05/07/19 06:55 Total Bilirubin 0.4 mg/dL (0.2-1) 05/07/19 06:55 AST 10 U/L (15-37) L 05/07/19 06:55 ALT 21 U/L (13-61) 05/07/19 06:55 Alkaline Phosphatase 76 U/L (45-117) 05/07/19 06:55 Total Protein 6.7 g/dl (6.4-8.2) 05/07/19 06:55 Albumin 3.4 g/dl (3.4-5.0) 05/07/19 06:55 CARDIAC ENZYMES Troponin I < 0.02 ng/ml (0.00-0.05) 05/06/19 15:54 Current Medications Generic Name Dose Route Start Last Admin Trade Name Freq PRN Reason Stop Dose Admin Acetaminophen 650 mg 05/06/19 22:38 Tylenol - PO Q6H PRN PAIN LEVEL 7 - 10 Albuterol Sulfate 1 amp 05/06/19 22:38 Ventolin 0.083% Nebulizer Soln - NEB Q4H PRN SHORT OF BREATH/WHEEZING Budesonide/Formoterol Fumarate 2 puff 05/07/19 10:00 05/07/19 09:28 Symbicort 160/4.5mcg - IH 2 puff BID KAREN Administration Elvitegravir/Cobicis/Emtricit/Tenof 1 tab 05/07/19 10:00 05/07/19 09:30 Genvoya (Non-Formulary) PO 1 tab DAILY KAREN Administration Enoxaparin Sodium 40 mg 05/07/19 10:00 05/07/19 09:28 Lovenox - SQ 40 mg DAILY KAREN Administration Doxycycline Hyclate 100 mg/ 100 mls @ 100 mls/hr 05/07/19 10:00 05/07/19 09: 28 Dextrose IVPB 100 mls/hr BID KAREN Administration Insulin Aspart 1 vial 05/07/19 07:00 05/07/19 06:24 Novolog Vial Sliding Scale - SQ 2 units ACHS KAREN Administration Protocol Montelukast Sodium 10 mg 05/07/19 22:00 Singulair - PO HS [facility] Home Medications Medication Instructions Recorded Elviteg/Cob/Emtri/Tenof Alafen 1 tab PO DAILY 02/19/17 [Genvoya (Non-Formulary)] Budesonide/Formeterol Fumarate 2 inh PO BID 02/20/17 [SYMBICORT 160/4.5mcg -] Albuterol 0.083% Nebulizer Rach 1 amp NEB Q6H PRN #30 amp 05/14/18 [Ventolin 0.083% Nebulizer Soln -] Albuterol Sulfate Inhaler - 1 - 2 inh PO Q4H #1 inhaler 03/29/19 [Ventolin HFA Inhaler -] Montelukast Na [Singulair -] 10 mg PO HS #30 tablet 03/29/19 Prednisone See Taper PO DAILY #30 tablet 03/29/19 Sitagliptin Phosphate [Januvia] 100 mg PO DAILY #30 tablet 03/29/19 CXR: No acute pathology CT abd/pelvis:diffuse fatty liver , no intra-abdominal abscess or acute pathology CTA of the chest : No PE Assessment and plan: Patient is a 48yoF with PMHx of HTN, DM, PUMA( not compliant on CPAP), HIV (on genvoya), fibromyalgia, morbid obesity , hx of asthma( never intubated) presented to ED from PCP office for shortness of breath and leg swelling. Pt is admitted for abdominal cellulitis # Acute abdominal cellulitis: on doxycycline /given Vancomycin in ED, will wait for ID recommendations, , will start the patient on UNasyn # Acute sob with hypoxemia on 2l o2 now keep Sao2>90% due to PUMA/asthma/morbid obesity ;continue with singulair, symbicort , ventolin for the asthma,duonebs, Pulm recs appreciated, Cardio and pulm recs appreciated #T2DM continue with SS with coverage #HIV :continue genvoya #PUMA on CPAP, but patient is non compliant , pulm for consult DVT ppx:lovenox Visit type - Emergency Visit Emergency Visit: Yes ED Registration Date: 05/06/19 Care time: The patient presented to the Emergency Department on the above date and was hospitalized for further evaluation of their emergent condition. - New Patient This patient is new to me today: Yes Date on this admission: 05/07/19 - Critical Care Critical Care patient: No - Discharge Referral Referred to [facility] Med P.C.: No
[2019-05-07] MEDS ORDERED: AMPICILLIN NA/SULBACTAM NA 3 GM in SODIUM CHLORIDE 100 ML IVPB SCH (12:00)
--- NOTE | 2019-05-07 12:00 | PN ---
Progress Note (short form) - Note Progress Note: ID consult dictated imp/reccd 48 yo female with stable hiv, asthma and morbid obesity with 2 week history of worsening sob- she travelled to [place] and noted worsening SOB on return- may 01- also developed pain and swelling with erythema of the LLE and went to see her pcp dr cardenas- she saw the AIRLINE SECURITY REPRESENTATIVE in the office and was advised ER admission patient also notes chills and she has noted induration of her pannus and vulvar area- 2 days ago noted some blood on the tissue chest CTA negative given vancomycin in Ed and started on doxycycline no allergies continues to c/o left leg tightness, with mild erythema of the leg she has a small infected cyst/abscess right suprapubic (mons pubis) area- minimal serous drainage, no pus- culture sent r/o dvt LLE versus cellulitis- would get duplex , switch to clindamycin culture sent of small cyst/abscess- would clean with betadine and keep dry- clindamycin would be a reasonable choice for this as well hiv- continue genvoya Problem List - Problems (1) Cellulitis Code(s): L03.90 - CELLULITIS, UNSPECIFIED (2) Infected cyst of skin Code(s): L72.9 - FOLLICULAR CYST OF THE SKIN AND SUBCUTANEOUS TISSUE, UNSP; L08.9 - LOCAL INFECTION OF THE SKIN AND SUBCUTANEOUS TISSUE, UNSP (3) Leg swelling Code(s): M79.89 - OTHER SPECIFIED SOFT TISSUE DISORDERS
[2019-05-07] MEDS: LACTOBACILLUS ACIDOPHILUS 1 TABLET PO SCH (14:46)
--- NOTE | 2019-05-07 14:51 | CON.PULM ---
Consult Consult Specialty:: PULMONARY Referred by:: Dr Calix Reason for Consultation:: shortness of breath - History of Present Illness Chief Complaint: shortness of breath History of Present Illness: 48yo female with h/o HTN, DM, HIV on ART, PUMA not on CPAP, morbid obesity, asthma who was admitted from her PCP for shortness of breath and LLE swelling. Denies chest pain or palpitations. No significant cough or wheezing. Feels different from her asthma. Reports increasing awakenings at night and she chronically sleeps upright. Also reports increased abdominal bloating. CTA chest and LE dopplers negative for VTE. - History Source History Provided By: Patient, Medical Record Limitations to Obtaining History: No Limitations - Past Medical History Cardio/Vascular: Yes: Other (Patient reports being seen by crystal grinder for "sluggish heart". She reports occasional "heaviness" in her chest, no chest pain.) Pulmonary: Yes: Asthma Gastrointestinal: Yes: Irritable Bowel Disease. No: Ascites, GI Bleed, Ulcerative Colitis ...LMP: 03/14/19 ...: No Infectious Disease: Yes: HIV Additional Medical History: Morbid obesity - Past Surgical History Past Surgical History: Yes: - Alcohol/Substance Use Hx Alcohol Use: No - Smoking History Smoking history: Never smoked Have you smoked in the past 12 months: No - Social History Usual Living Arrangement: With Spouse ADL: Independent Occupation: unemplayed History of Recent Travel: No Home Medications - Allergies Allergies/Adverse Reactions: Allergies Allergy/AdvReac Type Severity Reaction Status Date / Time omeprazole magnesium Allergy Mild Hives Verified 05/06/19 12:48 [From [facility]] - Home Medications Home Medications: Ambulatory Orders Elviteg/Cob/Emtri/Tenof Alafen [Genvoya (Non-Formulary)] 1 tab PO DAILY Budesonide/Formeterol Fumarate [SYMBICORT 160/4.5mcg -] 2 inh PO BID 02/20/17 Albuterol 0.083% Nebulizer Rach [Ventolin 0.083% Nebulizer Soln -] 1 amp NEB Q6H PRN #30 amp 05/14/18 Albuterol Sulfate Inhaler - [Ventolin HFA Inhaler -] 1 - 2 inh PO Q4H #1 inhaler 03/29/19 Montelukast Na [Singulair -] 10 mg PO HS #30 tablet 03/29/19 Prednisone See Taper PO DAILY #30 tablet 03/29/19 Sitagliptin Phosphate [Januvia] 100 mg PO DAILY #30 tablet 03/29/19 Review of Systems - Review of Systems Constitutional: reports: Chills. denies: Fever, Weakness Eyes: denies: Recent Change in Vision HENT: denies: Nasal Congestion, Throat Pain Neck: denies: Stiffness, Tenderness Cardiovascular: reports: Edema, Shortness of Breath. denies: Chest Pain, Palpitations Respiratory: reports: SOB on Exertion. denies: Cough, Hemoptysis, Wheezing Gastrointestinal: reports: Bloating. denies: Abdominal Pain, Nausea, Vomiting Genitourinary: denies: Dysuria, Hematuria Neurological: denies: Dizziness, Headache Endocrine: denies: Unexplained Weight Loss Physical Exam Vital Sings: Vital Signs Temperature 98.3 F 05/07/19 14:48 Pulse Rate 88 05/07/19 14:48 Respiratory Rate 18 05/07/19 14:48 Blood Pressure 136/79 05/07/19 14:48 O2 Sat by Pulse Oximetry (%) 96 05/07/19 09:00 Constitutional: Yes: Calm Eyes: Yes: Conjunctiva Clear, EOM Intact HENT: Yes: Atraumatic, Normocephalic Neck: Yes: Supple, Trachea Midline Cardiovascular: Yes: Regular Rate and Rhythm Respiratory: Yes: Diminished (distant breath sounds). No: Wheezes ...Clubbing: No Gastrointestinal: Yes: Normal Bowel Sounds, Soft, Abdomen, Obese. No: Tenderness Edema: Yes Labs: CBC, BMP 05/07/19 06:55 05/07/19 06:55 ABG Results ABG pH 7.37 (7.35-7.45) 05/06/19 00:15 ABG pCO2 at Pt Temp 44.2 mmHg (35-45) 05/06/19 00:15 ABG pO2 at Pt Temp 77.7 mmHg (80-100) L 05/06/19 00:15 ABG HCO3 24.9 mmol/L (22-27) 05/06/19 00:15 ABG O2 Sat (Measured) 95.2 % (95-98) 05/06/19 00:15 ABG O2 Content 15.0 % vol 05/06/19 00:15 ABG Base Excess 0 meq/l (-2-2) 05/06/19 00:15 Imaging - Results Chest X-ray: Report Reviewed, Image Reviewed Cat Scan: Report Reviewed, Image Reviewed (no central PE) Assessment/Plan Volume Overload Suspect Acute Diastolic Heart Failure Asthma Morbid Obesity HIV HTN DM PUMA - agree with IV lasix - monitor urine output, creatinine - echocardiogram if technically possible - O2 to keep SpO2 >905 - inhaled bronchodilators - agree with deferring systemic steroids at this time - CPAP if pt agrees - DVT prophylaxis Thank you for this consult Mendoza Felix MD
--- NOTE | 2019-05-07 15:01 | CONS ---
INFECTIOUS DISEASE CONSULTATION DATE OF CONSULTATION: DATE OF DICTATION: 05/07/2019 REQUESTED BY: The hospitalist service. HISTORY OF PRESENT ILLNESS: This is a 48-year-old, woman with a past medical history of asthma. She has stable HIV disease and she has a history of obesity. She is followed as an outpatient by Dr. Jiménez and for her HIV by Dr. Jones. She is quite stable on her HIV regimen of Genvoya. She reports that about 2 weeks ago, she started having some increasing shortness of breath. She went on a trip to [place]. While there, the shortness of breath continued. She returned on May 01. Yesterday, she noted that she had now some new pain in her left leg with some mild erythema and it felt tighter than usual. She went to see her PCP, Dr. Jiménez, was seen by the COAT CHECKER there, and referred to the ER for further evaluation, given concern for PE and given the travel history. She notes she has had chills, but no fevers. She notes her asthma is not active, at this time. In the ER, she was noted to have a white count of 14.1. Also, of note, she reports at home that when she wipes her suprapubic area, she noted some bloody drainage 2 days ago. PAST MEDICAL HISTORY: Notable for a history of hypertension, diabetes, obstructive sleep apnea, HIV, fibromyalgia, morbid obesity, and asthma. She has had C- sections in the past. SOCIAL HISTORY: There is no history of any cigarette, alcohol or substance use. She lives with her spouse. She is independent. She is unemployed. Her recent travel was to [place]. REVIEW OF SYSTEMS: She notes that once in June, she had some drainage from around the same site. She has had no other abscesses. ALLERGIES: She is allergic to OMEPRAZOLE. MEDICATIONS AT HOME: Include Genvoya, Symbicort, and Ventolin inhaler. She takes Januvia and Singulair, as well. PHYSICAL EXAMINATION: Vital Signs: Her temperature is 98.5, pulse of 93, blood pressure 121/61, respiratory rate is 19. She is saturating 96% on room air. HEENT: She is normocephalic. Her eyes are anicteric. Neck: Supple. Lungs: Clear to auscultation. Heart: Regular rate and rhythm. Abdomen: Soft. She has a large pannus, has some induration of the skin of the pannus. Below that, in her mons pubis, she has a small cystic area that has some serous drainage; this is where she noted bloody discharge and is quite painful. Extremities: Notable for some erythema of the left lower extremity with some trace edema. This is in comparison to the right leg. LABORATORY DATA: White count is 15,000, hemoglobin 11.2, platelets are 363. BUN and creatinine are 13 and 0.9. LFTs are normal. Cultures are pending. IMAGING: She had a CTA of her chest, abdomen, and pelvis done in the ER, which was negative for PE and negative for any abscess. In summary, this is a 48-year-old, woman admitted with a 2-week history of worsening shortness of breath. Concerns include she has a DVT of the left lower extremity versus cellulitis. Would get a duplex and switch to clindamycin. She has a small, infected cyst versus abscess on her right mons pubis. Culture was sent of the area. Would clean it with Betadine and keep dry. Clindamycin should be effective, both for the cellulitis and the small abscess. Regarding her HIV, would continue Genvoya. Further recommendations to follow. ROMINA LEW M.D. [id number] MTDD
[2019-05-07 15:04] LABS: PH,URINE 5.5 (5.0-8.0); URINE APPEARANCE CLEAR; URINE BILIRUBIN NEGATIVE (NEGATIVE); URINE COLOR YELLOW; URINE GLUCOSE (UA) NEGATIVE (NEGATIVE); URINE KETONE NEGATIVE (NEGATIVE); URINE LEUK ESTERASE NEGATIVE (NEGATIVE); URINE NITRITE NEGATIVE (NEGATIVE); URINE PROTEIN NEGATIVE (NEGATIVE); URINE UROBILINOGEN 0.2 mg/dL (0.2-1.0)
--- NOTE | 2019-05-07 15:42 | CON.CARD ---
Cardiology Consult (text) - Consultation Consultation Note: cc: sob, le edema hpi: 48 f hx hiv, htn, dm, asthma here with sob, le edema. Past few days with sob, le edema. No cp palps dizzy loc pnd orthopnea. pmh: per hpi psh: social: no tob ros: per hpi; all others nl fam: no premature cad scd meds: Home Medications Medication Instructions Recorded Elviteg/Cob/Emtri/Tenof Alafen 1 tab PO DAILY 02/19/17 [Genvoya (Non-Formulary)] Budesonide/Formeterol Fumarate 2 inh PO BID 02/20/17 [SYMBICORT 160/4.5mcg -] Albuterol 0.083% Nebulizer Rach 1 amp NEB Q6H PRN #30 amp 05/14/18 [Ventolin 0.083% Nebulizer Soln -] Albuterol Sulfate Inhaler - 1 - 2 inh PO Q4H #1 inhaler 03/29/19 [Ventolin HFA Inhaler -] Montelukast Na [Singulair -] 10 mg PO HS #30 tablet 03/29/19 Prednisone See Taper PO DAILY #30 tablet 03/29/19 Sitagliptin Phosphate [Januvia] 100 mg PO DAILY #30 tablet 03/29/19 Vital Signs Period Temp Pulse Resp BP Sys/So Pulse Ox Last 24 Hr 97.5 F-98.7 F 88-93 18-20 121-136/61-84 96-97 nad no jvd rrr s1s2 no mrg cta bl, nl eff aaox3 trace le edema bl, no c/c abd nt nd pos bs no jaundice diaphoresis pos dp pt no carotid bruits 05/06/19 05/06/19 05/06/19 15:54 15:54 15:54 WBC 14.1 H RBC 5.13 Hgb 11.5 Hct 37.9 MCV 73.8 L MCHC 30.3 L RDW 19.9 H Plt Count 388 Neutrophils % 72.4 D Lymphocytes % 19.6 D Monocytes % 7.0 D Eosinophils % 0.3 D Basophils % 0.7 INR 1.14 H Sodium 137 Potassium 4.5 Chloride 104 Carbon Dioxide 26 Anion Gap 7 L BUN 8.4 Creatinine 0.8 05/07/19 05/07/19 06:55 06:55 WBC 15.1 H RBC 5.01 Hgb 11.2 Hct 36.6 MCV 73.0 L MCHC 30.7 L RDW 19.7 H Plt Count 363 Neutrophils % Lymphocytes % Monocytes % Eosinophils % Basophils % INR Sodium 136 Potassium 3.8 Chloride 101 Carbon Dioxide 26 Anion Gap 9 BUN 13.4 Creatinine 0.9 05/07/19 12:00 Gram Stain - Pending Abscess Wound Culture - Pending 05/06/19 15:54 Blood Culture - Pending Blood - Peripheral Venous 05/06/19 15:54 Blood Culture - Pending Blood - Peripheral Venous cta chest: no pe, no chf ecg: sr nl intervals no ischemic changes echo 10/2017: nl lvef, no sig valve path echo 02/2019: echo technically difficult and non-diagnostic A/P: 48 f hx hiv, htn, dm, asthma here with sob, le edema. possible acute diastolic chf: -repeat echo pending -will give trial of iv lasix to see if helps with sxs. -no signs chf -daily wts, chem7 htn: -monitor off meds for now asthma: -no active wheezing, pulm following
[2019-05-07] MEDS: FUROSEMIDE 40 MG/4 ML INJECTABLE VIAL IVPUSH SCH (17:16)
[2019-05-07] MEDS: CLINDAMYCIN 600MG PREMIX IVPB 600 MG/50 ML BAG IVPB SCH (17:17)
[2019-05-07] MEDS ORDERED: INSULIN (NOVOLOG) ASPART 100 UNITS/ML 10ML VIAL ONE (20:27)
[2019-05-07] MEDS: MONTELUKAST NA 10 MG TABLET PO SCH (20:59)
[2019-05-07] MEDS: ACETAMINOPHEN 325 MG TABLET (FP) PO PRN (20:59)
[2019-05-08] MEDS: CLINDAMYCIN 600MG PREMIX IVPB 600 MG/50 ML BAG IVPB SCH ×3 (02:46→17:45)
[2019-05-08] MEDS: ACETAMINOPHEN 325 MG TABLET (FP) PO PRN (02:52)
[2019-05-08] MEDS: INSULIN SLIDING SCALE (NOVOLOG) 1 VIAL SQ SCH ×4 (06:12→21:51)
--- NOTE | 2019-05-08 08:52 | PN ---
Progress Note (short form) - Note Progress Note: OOB to chair. NAD on RA. No acute events overnight. Intake & Output 05/05/19 05/06/19 05/07/19 05/08/19 23:59 23:59 23:59 23:59 Intake Total 150 950 400 Output Total 100 3850 Balance 50 -2900 400 Weight 358 lb 14.4 oz 354 lb 11.2 oz 356 lb 8 oz Last Vital Signs Temp Pulse Resp BP Pulse Ox 97.5 F L 93 H 18 142/80 96 05/08/19 06:04 05/08/19 06:04 05/08/19 06:04 05/08/19 06:04 05/07/19 21:00 Active Medications Acetaminophen (Tylenol -) 650 mg PO Q6H PRN PRN Reason: PAIN LEVEL 7 - 10 Last Admin: 05/08/19 02:52 Dose: 650 mg Albuterol Sulfate (Ventolin 0.083% Nebulizer Soln -) 1 amp NEB Q4H PRN PRN Reason: SHORT OF BREATH/WHEEZING Budesonide/Formoterol Fumarate (Symbicort 160/4.5mcg -) 2 puff IH BID [facility] Last Admin: 05/07/19 21:00 Dose: 2 puff Elvitegravir/Cobicis/Emtricit/Tenof (Genvoya (Non-Formulary)) 1 tab PO DAILY [facility] Last Admin: 05/07/19 09:30 Dose: 1 tab Enoxaparin Sodium (Lovenox -) 40 mg SQ DAILY [facility] Last Admin: 05/07/19 09:28 Dose: 40 mg Furosemide (Lasix Injection -) 40 mg IVPUSH DAILY [facility] Last Admin: 05/07/19 17:16 Dose: 40 mg Clindamycin Phosphate (Cleocin 600 Mg Premix Ivpb -) 600 mg in 50 mls @ 100 mls /hr IVPB Q8H-IV [facility]; Protocol Last Admin: 05/08/19 02:46 Dose: 100 mls/hr Insulin Aspart (Novolog Vial Sliding Scale -) 1 vial SQ ACHS [facility]; Protocol Last Admin: 05/08/19 06:12 Dose: Not Given Lactobacillus Acidophilus (Bacid -) 1 tab PO DAILY [facility] Last Admin: 05/07/19 14:46 Dose: 1 tab Montelukast Sodium (Singulair -) 10 mg PO HS [facility] Last Admin: 05/07/19 20:59 Dose: 10 mg Constitutional: Yes: NAD Eyes: Yes: Conjunctiva Clear, EOM Intact HENT: Yes: Atraumatic, Normocephalic Neck: Yes: Supple, Trachea Midline Cardiovascular: Yes: Regular Rate and Rhythm Respiratory: Yes: Diminished (distant breath sounds). No: Wheezes ...Clubbing: No Gastrointestinal: Yes: Normal Bowel Sounds, Soft, Abdomen, Obese. No: Tenderness Edema: Yes Labs: Laboratory Results - last 24 hr 05/07/19 05/07/19 05/07/19 12:12 13:50 17:12 POC Glucometer 150 220 Urine Color Yellow Urine Appearance Clear Urine pH 5.5 Ur Specific [place] 1.033 Urine Protein Negative Urine Glucose (UA) Negative Urine Ketones Negative Urine Blood Negative Urine Nitrite Negative Urine Bilirubin Negative Urine Urobilinogen 0.2 Ur Leukocyte Esterase Negative 05/07/19 05/08/19 20:55 06:03 POC Glucometer 172 146 Urine Color Urine Appearance Urine pH Ur Specific [place] Urine Protein Urine Glucose (UA) Urine Ketones Urine Blood Urine Nitrite Urine Bilirubin Urine Urobilinogen Ur Leukocyte Esterase Assessment/Plan Volume Overload Suspect Acute Diastolic Heart Failure Asthma, Mild Persistent Morbid Obesity HIV HTN DM PUMA - Lasix - monitor urine output, creatinine - echocardiogram if technically possible - O2 to keep SpO2 >905 - inhaled bronchodilators - Monitor off systemic steroids - Patient defers CPAP use despite risks and benefits (has a device she does not use at home) - DVT prophylaxis Dr Dai
[2019-05-08] MEDS ORDERED: PT OWN MED DRAWER 7, Y5N ONE (10:58)
[2019-05-08] MEDS: ENOXAPARIN NA (PORCINE) 40 MG/0.4 ML DISP.SYRIN SQ SCH (11:06)
[2019-05-08] MEDS: ELVITEG/COB/EMTRI/TENOF (GENVOYA) TABLET (NF) PO SCH (11:06)
[2019-05-08] MEDS: LACTOBACILLUS ACIDOPHILUS 1 TABLET PO SCH (11:06)
[2019-05-08] MEDS: FUROSEMIDE 40 MG/4 ML INJECTABLE VIAL IVPUSH SCH (11:07)
[2019-05-08] MEDS: BUDESONIDE/FORMETEROL FUMARATE 160/4.5 mcg INHALER IH SCH ×2 (11:07→21:52)
--- NOTE | 2019-05-08 13:47 | ECHO ---
Name: FILOMENA ZARAGOZA Exam:Adult Echocardiogram Study Date: 05/08/2019 09:48 AM Age: 48 yrs Height: 62 in Weight: 354 lb BSA: 2.4 m2 MMode/2D Measurements & Calculations Ao root diam: 3.0 cm LA dimension: 4.2 cm Doppler Measurements & Calculations MV E max josemanuel: 69.1 cm/sec MV A max josemanuel: 46.4 cm/sec MV E/A: 1.5 MV dec time: 0.14 sec Procedure A two-dimensional transthoracic echocardiogram with color flow and Doppler was performed in limited v iews only. The study was non-diagnostic in quality. No definitive statements could be made about this echo due to extremely poor acoustic windows. Left Ventricle The left ventricle is not well visualized. Right Ventricle The right ventricle is not well visualized. Atria The left atrium is not well visualized. Right atrium not well visualized. Mitral Valve The mitral valve is not well visualized. Tricuspid Valve The tricuspid valve is not well visualized. Aortic Valve The aortic valve is not well visualized. Pulmonic Valve The pulmonic valve is not well visualized. Great Vessels The aortic root is not well visualized. Pericardium/Pleura There is no pericardial effusion. Interpretation Summary The study was non-diagnostic in quality. No definitive statements could be made about this echo due t o extremely poor acoustic windows. MD Reese Monahan 05/08/2019 01:47 PM
--- NOTE | 2019-05-08 16:16 | PN ---
Progress Note (short form) - Note Progress Note: s: sob stable, worse with exertion. no chest pain, palps. edema improving. Current Medications Acetaminophen (Tylenol -) 650 mg PO Q6H PRN PRN Reason: PAIN LEVEL 7 - 10 Last Admin: 05/08/19 02:52 Dose: 650 mg Albuterol Sulfate (Ventolin 0.083% Nebulizer Soln -) 1 amp NEB Q4H PRN PRN Reason: SHORT OF BREATH/WHEEZING Budesonide/Formoterol Fumarate (Symbicort 160/4.5mcg -) 2 puff IH BID [facility] Last Admin: 05/08/19 11:07 Dose: 2 puff Elvitegravir/Cobicis/Emtricit/Tenof (Genvoya (Non-Formulary)) 1 tab PO DAILY [facility] Last Admin: 05/08/19 11:06 Dose: 1 tab Enoxaparin Sodium (Lovenox -) 40 mg SQ DAILY [facility] Last Admin: 05/08/19 11:06 Dose: 40 mg Furosemide (Lasix Injection -) 40 mg IVPUSH DAILY [facility] Last Admin: 05/08/19 11:07 Dose: 40 mg Clindamycin Phosphate (Cleocin 600 Mg Premix Ivpb -) 600 mg in 50 mls @ 100 mls /hr IVPB Q8H-IV [facility]; Protocol Last Admin: 05/08/19 11:05 Dose: 100 mls/hr Insulin Aspart (Novolog Vial Sliding Scale -) 1 vial SQ ACHS [facility]; Protocol Last Admin: 05/08/19 11:56 Dose: Not Given Lactobacillus Acidophilus (Bacid -) 1 tab PO DAILY [facility] Last Admin: 05/08/19 11:06 Dose: 1 tab Montelukast Sodium (Singulair -) 10 mg PO HS [facility] Last Admin: 05/07/19 20:59 Dose: 10 mg Vital Signs Period Temp Pulse Resp BP Sys/So Pulse Ox Last 24 Hr 97.5 F-98.4 F 85-93 18-18 127-152/73-88 96-96 nad no jvd rrr s1s2 no mrg cta bl, nl eff aaox3 trace le edema bl, no c/c abd nt nd pos bs no jaundice diaphoresis pos dp pt no carotid bruits cta chest: no pe, no chf ecg: sr nl intervals no ischemic changes echo 10/2017: nl lvef, no sig valve path echo 02/2019: echo technically difficult and non-diagnostic A/P: 48 f hx hiv, htn, dm, asthma here with sob, le edema. possible acute diastolic chf: -repeat echo nondiagnostic, technically difficult -cont IV lasix for now -no signs chf -daily wts, chem7 htn: -monitor off meds for now asthma: -no active wheezing, pulm following
--- NOTE | 2019-05-08 18:42 | PN ---
Progress Note, Physician Chief Complaint: abdominal pain History of Present Illness: no acute events overnight, feeling better - Current Medication List Current Medications: Active Medications Acetaminophen (Tylenol -) 650 mg PO Q6H PRN PRN Reason: PAIN LEVEL 7 - 10 Last Admin: 05/08/19 02:52 Dose: 650 mg Albuterol Sulfate (Ventolin 0.083% Nebulizer Soln -) 1 amp NEB Q4H PRN PRN Reason: SHORT OF BREATH/WHEEZING Budesonide/Formoterol Fumarate (Symbicort 160/4.5mcg -) 2 puff IH BID [facility] Last Admin: 05/08/19 11:07 Dose: 2 puff Elvitegravir/Cobicis/Emtricit/Tenof (Genvoya (Non-Formulary)) 1 tab PO DAILY [facility] Last Admin: 05/08/19 11:06 Dose: 1 tab Enoxaparin Sodium (Lovenox -) 40 mg SQ DAILY [facility] Last Admin: 05/08/19 11:06 Dose: 40 mg Furosemide (Lasix Injection -) 40 mg IVPUSH DAILY [facility] Last Admin: 05/08/19 11:07 Dose: 40 mg Clindamycin Phosphate (Cleocin 600 Mg Premix Ivpb -) 600 mg in 50 mls @ 100 mls /hr IVPB Q8H-IV [facility]; Protocol Last Admin: 05/08/19 17:45 Dose: 100 mls/hr Insulin Aspart (Novolog Vial Sliding Scale -) 1 vial SQ ACHS [facility]; Protocol Last Admin: 05/08/19 17:30 Dose: Not Given Lactobacillus Acidophilus (Bacid -) 1 tab PO DAILY [facility] Last Admin: 05/08/19 11:06 Dose: 1 tab Montelukast Sodium (Singulair -) 10 mg PO HS [facility] Last Admin: 05/07/19 20:59 Dose: 10 mg - Objective Vital Signs: Vital Signs Temperature 98.4 F 05/08/19 15:19 Pulse Rate 93 H 05/08/19 15:19 Respiratory Rate 18 05/08/19 15:19 Blood Pressure 150/88 05/08/19 15:19 O2 Sat by Pulse Oximetry (%) 96 05/08/19 09:00 Constitutional: Yes: Well Nourished, No Distress, Calm Cardiovascular: Yes: WNL, Regular Rate and Rhythm Respiratory: Yes: WNL, Regular, CTA Bilaterally Gastrointestinal: Yes: Abdomen, Obese (morbidly obese, pannus with skin thickening and slight tenderness to palpation) Edema: Yes Labs: CBC, BMP 05/07/19 06:55 05/07/19 06:55 INR, PTT INR 1.14 (0.83-1.09) H 05/06/19 15:54 Problem List - Problems (1) Leg swelling Code(s): M79.89 - OTHER SPECIFIED SOFT TISSUE DISORDERS (2) HIV (human immunodeficiency virus infection) Code(s): Z21 - ASYMPTOMATIC HUMAN IMMUNODEFICIENCY VIRUS INFECTION STATUS (3) Obesity Code(s): E66.9 - OBESITY, UNSPECIFIED Qualifiers: Obesity type: unspecified obesity type Obesity classification: adult class 3 (BMI >= 40) Serious obesity comorbidity presence: unspecified whether serious comorbidity present Body mass index: BMI 60.0-69.9 Qualified Code(s) : E66.01 - Morbid (severe) obesity due to excess calories; Z68.44 - Body mass index (BMI) 60.0-69.9, adult (4) Asthma exacerbation Code(s): J45.901 - UNSPECIFIED ASTHMA WITH (ACUTE) EXACERBATION Qualifiers: Asthma severity: moderate Asthma persistence: unspecified Qualified Code( s): J45.901 - Unspecified asthma with (acute) exacerbation Assessment/Plan 48 yo F with PMHx of HTN, DM, PUMA( not compliant on CPAP), HIV (on genvoya), fibromyalgia, morbid obesity , hx of asthma( never intubated) presented to ED from PCP office for shortness of breath and leg swelling. Pt is admitted for abdominal cellulitis 1) Abdominal cellulitis: -cultured, started on unasyn -followup cultures 2) Acute hypoxic resp failure due to PUMA/asthma/morbid obesity -continue with inhaled BD -2decho if possible -pulm and cardio following DM2 cw current mnmgt HIV on Genvoya PUMA on CPAP
[2019-05-08] MEDS ORDERED: INSULIN (NOVOLOG) ASPART 100 UNITS/ML 10ML VIAL ONE (21:50)
[2019-05-08] MEDS: MONTELUKAST NA 10 MG TABLET PO SCH (21:51)
[2019-05-09] MEDS: CLINDAMYCIN 600MG PREMIX IVPB 600 MG/50 ML BAG IVPB SCH ×3 (02:51→17:24)
[2019-05-09] MEDS: INSULIN SLIDING SCALE (NOVOLOG) 1 VIAL SQ SCH ×4 (06:00→21:43)
[2019-05-09 07:35] LABS: CALCIUM 9.3 mg/dL (8.5-10.1); CREATININE 0.8 mg/dL (0.55-1.3); POTASSIUM 3.9 mmol/L (3.5-5.1)
--- NOTE | 2019-05-09 09:41 | PN ---
Progress Note (short form) - Note Progress Note: She still complains of short of breath and leg swelling but there is no redness anymore. She is on IV clindamycin. She denies any fever chills nausea vomiting. She went for an echocardiogram and the study was not diagnostic because of poor technical difficulties because of her overweight. Vital Signs Period Temp Pulse Resp BP Sys/So Pulse Ox Last 24 Hr 98 F-98.8 F 85-93 18-20 122-152/78-88 99-99 Physical examination Morbidly obese lady sitting in the chair comfortable HEENT NAD Lungs clear Heart S1-S2 distant sounds no murmur appreciated Extremities trace edema both side but no cellulitis abdomen soft nontender bowel sounds are normal She had area above the pubis area she had abscess I examined the abdomen that is healed there is no discharge or no cellulitis there. CBC, BMP 05/07/19 06:55 05/09/19 06:45 ecg: sr nl intervals no ischemic changes echo 03/2019: echo technically difficult and non-diagnostic Assessment and plan # A/P: 48 f hx hiv, htn, dm, asthma here with sob, le edema. 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 once a day htn: -monitor off meds for now asthma: -no active wheezing, pulm following Cellulitis she is improved continue antibiotic The abscess and cellulitis on the pubis area much improved continue antibiotics. Seen by infectious disease today recommended to go on clindamycin 300 mg 3 times the day oral tomorrow Visit type - Emergency Visit Emergency Visit: Yes ED Registration Date: 05/06/19 Care time: The patient presented to the Emergency Department on the above date and was hospitalized for further evaluation of their emergent condition. - New Patient This patient is new to me today: Yes Date on this admission: 05/09/19 - Critical Care Critical Care patient: No - Discharge Referral Referred to [facility] Med P.C.: No
[2019-05-09] MEDS: ENOXAPARIN NA (PORCINE) 40 MG/0.4 ML DISP.SYRIN SQ SCH (10:03)
[2019-05-09] MEDS: LACTOBACILLUS ACIDOPHILUS 1 TABLET PO SCH (10:04)
[2019-05-09] MEDS: FUROSEMIDE 40 MG/4 ML INJECTABLE VIAL IVPUSH SCH (10:04)
[2019-05-09] MEDS: ELVITEG/COB/EMTRI/TENOF (GENVOYA) TABLET (NF) PO SCH (10:05)
[2019-05-09] MEDS: BUDESONIDE/FORMETEROL FUMARATE 160/4.5 mcg INHALER IH SCH ×2 (10:05→21:40)
--- NOTE | 2019-05-09 10:20 | PN ---
Progress Note (short form) - Note Progress Note: PULMONARY OOB TO CHAIR NO BREATHING ISSUES MORBIDLY OBESE COMPLAINING OF LOWER EXT EDEMA TRAY TABLE IS REPLETE WITH A VARIETY OF JUICES/WATER ETC. VSS/AFEBRILE ANICTERIC DISTANT BUT CLEAR S1S2 OBESE 2+ EDEMA LABS/MEDS/NOTES/IMAGES REVIEWED Volume Overload Suspect Acute Diastolic Heart Failure Asthma, Mild Persistent Morbid Obesity HIV HTN DM PUMA - Lasix - monitor urine output, creatinine - O2 to keep SpO2 >905 - inhaled bronchodilators - Monitor off systemic steroids - Patient defers CPAP use despite risks and benefits (has a device she does not use at home) - DVT prophylaxis - Volume control Mitali MASON MD
--- NOTE | 2019-05-09 10:46 | PN ---
Progress Note, Physician Chief Complaint: Ambulating to bathroom Still SOB No CP No palps History of Present Illness: O2 Sat 99% RA - Current Medication List Current Medications: Active Medications Acetaminophen (Tylenol -) 650 mg PO Q6H PRN PRN Reason: PAIN LEVEL 7 - 10 Last Admin: 05/08/19 02:52 Dose: 650 mg Albuterol Sulfate (Ventolin 0.083% Nebulizer Soln -) 1 amp NEB Q4H PRN PRN Reason: SHORT OF BREATH/WHEEZING Budesonide/Formoterol Fumarate (Symbicort 160/4.5mcg -) 2 puff IH BID [facility] Last Admin: 05/09/19 10:05 Dose: 2 puff Elvitegravir/Cobicis/Emtricit/Tenof (Genvoya (Non-Formulary)) 1 tab PO DAILY [facility] Last Admin: 05/09/19 10:05 Dose: 1 tab Enoxaparin Sodium (Lovenox -) 40 mg SQ DAILY [facility] Last Admin: 05/09/19 10:03 Dose: 40 mg Furosemide (Lasix Injection -) 40 mg IVPUSH DAILY [facility] Last Admin: 05/09/19 10:04 Dose: 40 mg Clindamycin Phosphate (Cleocin 600 Mg Premix Ivpb -) 600 mg in 50 mls @ 100 mls /hr IVPB Q8H-IV [facility]; Protocol Last Admin: 05/09/19 10:04 Dose: 100 mls/hr Insulin Aspart (Novolog Vial Sliding Scale -) 1 vial SQ ACHS [facility]; Protocol Last Admin: 05/09/19 06:00 Dose: Not Given Lactobacillus Acidophilus (Bacid -) 1 tab PO DAILY [facility] Last Admin: 05/09/19 10:04 Dose: 1 tab Montelukast Sodium (Singulair -) 10 mg PO HS [facility] Last Admin: 05/08/19 21:51 Dose: 10 mg - Objective Vital Signs: Vital Signs Temperature 98 F 05/09/19 10:20 Pulse Rate 88 05/09/19 10:20 Respiratory Rate 18 05/09/19 10:20 Blood Pressure 110/47 L 05/09/19 10:20 O2 Sat by Pulse Oximetry (%) 99 05/09/19 08:26 Constitutional: Yes: No Distress Cardiovascular: Yes: Regular Rate and Rhythm Respiratory: Yes: CTA Bilaterally (no active wheezing) Gastrointestinal: Yes: Soft, Abdomen, Obese Edema: Yes Edema: LLE: 1+, RLE: 1+ Neurological: Yes: Alert, Oriented Labs: CBC, BMP 05/07/19 06:55 05/09/19 06:45 INR, PTT INR 1.14 (0.83-1.09) H 05/06/19 15:54 Microbiology 05/07/19 12:00 Abscess Gram Stain - Final 05/07/19 12:00 Abscess Wound Culture - Preliminary NO GROWTH OBTAINED AFTER 24 HOURS INCUBATION, REINCUBATED. 05/06/19 15:54 Blood - Peripheral Venous Blood Culture - Preliminary NO GROWTH OBTAINED AFTER 48 HOURS, INCUBATION TO CONTINUE FOR 3 DAYS. 05/06/19 15:54 Blood - Peripheral Venous Blood Culture - Preliminary NO GROWTH OBTAINED AFTER 48 HOURS, INCUBATION TO CONTINUE FOR 3 DAYS. Laboratory Tests 05/07/19 05/09/19 06:55 06:45 WBC 15.1 H Hgb 11.2 Plt Count 363 Sodium 137 Potassium 3.9 Creatinine 0.8 Calcium 9.3 Assessment/Plan cta chest: no pe, no chf ecg: sr nl intervals no ischemic changes echo 10/2017: nl lvef, no sig valve path echo 02/2019: echo technically difficult and non-diagnostic A/P: 48 f hx hiv, htn, dm, asthma here with sob, le edema. possible acute diastolic chf: -repeat echo nondiagnostic, technically difficult -cont IV lasix for today, would switch to 20mg PO daily tomorrow -daily wts, chem7 htn: -monitor off meds for now asthma: -no active wheezing, pulm following
[2019-05-09 14:28] VITALS: BMI 65.1
--- NOTE | 2019-05-09 14:50 | PN ---
Progress Note (short form) - Note Progress Note: leg erythema improved still with edema of both legs and her pannus Vital Signs Period Temp Pulse Resp BP Sys/So Pulse Ox Last 24 Hr 98 F-98.8 F 85-93 18-20 110-152/47-88 99-99 cor-rrr lungs decreased bs at bases abd soft, +pannus with induration of the skin, mons pubis with clean ulcer no drainage CBC, BMP 05/07/19 06:55 05/09/19 06:45 Microbiology 05/07/19 12:00 Abscess Gram Stain - Final 05/07/19 12:00 Abscess Wound Culture - Preliminary Pending Organism Pending Organism#2 Pending Organism#3 05/06/19 15:54 Blood - Peripheral Venous Blood Culture - Preliminary NO GROWTH OBTAINED AFTER 48 HOURS, INCUBATION TO CONTINUE FOR 3 DAYS. 05/06/19 15:54 Blood - Peripheral Venous Blood Culture - Preliminary NO GROWTH OBTAINED AFTER 48 HOURS, INCUBATION TO CONTINUE FOR 3 DAYS. a/p cellulitis improved, small cyst no drainage f/edvin cbc in am day #3 antibiotics can switch to po clindamycin 300 mg po tid in am-tfor another 5 days- continue po lactobacillus for another one month lower extremity edema- per cardiology hiv- continue genvoya
[2019-05-09] MEDS: MONTELUKAST NA 10 MG TABLET PO SCH (21:39)
[2019-05-10] MEDS: CLINDAMYCIN 600MG PREMIX IVPB 600 MG/50 ML BAG IVPB SCH ×2 (02:37→09:36)
[2019-05-10] MEDS: INSULIN SLIDING SCALE (NOVOLOG) 1 VIAL SQ SCH ×2 (06:20→12:19)
[2019-05-10] MEDS: ACETAMINOPHEN 325 MG TABLET (FP) PO PRN (06:24)
[2019-05-10 06:33] LABS: BASO % 0.5 % (0-2.0); EOS % 0.5 % (0-4.5); HEMATOCRIT 34.4 % (32.4-45.2); HEMOGLOBIN 10.6 GM/dL (10.7-15.3); LYMPH % 19.8 % (8-40); MCH 22.7 pg (25.7-33.7); MCHC 30.9 g/dl (32.0-36.0); MEAN CELL VOLUME 73.4 fl (80-96); MONO % 7.7 % (3.8-10.2); NEUT % 71.5 % (42.8-82.8); PLATELET COUNT 366 K/MM3 (134-434); RBC 4.68 M/mm3 (3.60-5.2); RDW 19.4 % (11.6-15.6); WHITE BLOOD COUNT 12.8 K/mm3 (4.0-10.0)
--- NOTE | 2019-05-10 09:16 | DS ---
Physical Examination Vital Signs: Vital Signs Temperature 97.9 F 05/10/19 06:13 Pulse Rate 95 H 05/10/19 06:13 Respiratory Rate 18 05/10/19 06:13 Blood Pressure 156/85 05/10/19 06:13 O2 Sat by Pulse Oximetry (%) 98 05/10/19 08:23 Findings/Remarks: feeling well, much improved Constitutional: Yes: Well Nourished, No Distress, Calm Cardiovascular: Yes: WNL, Regular Rate and Rhythm Respiratory: Yes: WNL, Regular, CTA Bilaterally Gastrointestinal: Yes: Abdomen, Obese, Other (abdominal cellulitis improved) Musculoskeletal: Yes: WNL Extremities: Yes: WNL Edema: Yes Edema: LLE: 1+, RLE: 1+ Labs: CBC, BMP 05/10/19 05:50 05/09/19 06:45 Discharge Summary Problems reviewed: Yes Reason For Visit: CELLULITIS Current Active Problems Cellulitis (Acute) Infected cyst of skin (Acute) Hospital Course: 48 yo F with PMHx of HTN, DM, PUMA( not compliant on CPAP), HIV (on genvoya), fibromyalgia, morbid obesity , hx of asthma( never intubated) presented to ED from PCP office for shortness of breath and leg swelling. Pt is admitted for abdominal cellulitis 1) Abdominal cellulitis: -received IV abx and was transitioned to PO clinda, much improved -to DC home on clinda for 5 more days -ID consulted 2) Acute hypoxic resp failure due to PUMA/asthma/morbid obesity -continue with inhaled BD -2decho limited study -pulm and cardio following -to fu with cardio and pulm op, refused cpap -dc home on PO lasix DM2 cw current mnmgt HIV on Genvoya PUMA on CPAP-refusing Condition: Stable - Instructions Referrals: Carla Jiménez MD [Primary Care Provider] - Disposition: HOME - Home Medications Comprehensive Discharge Medication List: Ambulatory Orders Elviteg/Cob/Emtri/Tenof Alafen [Genvoya (Non-Formulary)] 1 tab PO DAILY Budesonide/Formeterol Fumarate [SYMBICORT 160/4.5mcg -] 2 inh PO BID 02/20/17 Albuterol 0.083% Nebulizer Rach [Ventolin 0.083% Nebulizer Soln -] 1 amp NEB Q6H PRN #30 amp 05/14/18 Albuterol Sulfate Inhaler - [Ventolin HFA Inhaler -] 1 - 2 inh PO Q4H #1 inhaler 03/29/19 Montelukast Na [Singulair -] 10 mg PO HS #30 tablet 03/29/19 Sitagliptin Phosphate [Januvia] 100 mg PO DAILY #30 tablet 03/29/19 Clindamycin HCl 300 mg PO TID 5 Days #15 capsule 05/10/19 Furosemide [Lasix] 20 mg PO DAILY #30 tablet 05/10/19 Lactobacillus Acidophilus [Bacid -] 1 tab PO DAILY tab 05/10/19
[2019-05-10] MEDS: ENOXAPARIN NA (PORCINE) 40 MG/0.4 ML DISP.SYRIN SQ SCH (09:36)
[2019-05-10] MEDS: LACTOBACILLUS ACIDOPHILUS 1 TABLET PO SCH (09:37)
[2019-05-10] MEDS: FUROSEMIDE 40 MG/4 ML INJECTABLE VIAL IVPUSH SCH (09:37)
[2019-05-10] MEDS: ELVITEG/COB/EMTRI/TENOF (GENVOYA) TABLET (NF) PO SCH (10:39)
[2019-05-10] MEDS: BUDESONIDE/FORMETEROL FUMARATE 160/4.5 mcg INHALER IH SCH (10:39)
[2019-05-10 14:02] VITALS: BP 148/86; PULSE 87; TEMP 98.7
== END 2019-05-10 12:16 | disposition home or self-care (01) | DRG 602 ==
LOC: JER 12:41 → JERBED 17:29 → J7W 21:09
PROVIDERS: ADMIT Internal Medicine; ATTEND Internal Medicine
DX: L03.311 Cellulitis of abdominal wall (principal); I50.31 Acute diastolic (congestive) heart failure; J96.01 Acute respiratory failure with hypoxia; Z68.44 Body mass index [BMI] 60.0-69.9, adult; E66.01 Morbid (severe) obesity due to excess calories; I11.0 Hypertensive heart disease with heart failure; J45.909 Unspecified asthma, uncomplicated; E11.9 Type 2 diabetes mellitus without complications; M79.7 Fibromyalgia; G47.33 Obstructive sleep apnea (adult) (pediatric); Z79.84 Long term (current) use of oral hypoglycemic drugs; Z21 Asymptomatic human immunodeficiency virus [HIV] infection status; L72.9 Follicular cyst of the skin and subcutaneous tissue, unspecified; J45.30 Mild persistent asthma, uncomplicated
CPT/HCPCS: 36415; 36600; 71045-TC-FY; 71275-TC; 74177-TC; 80048; 80053; 81003; 82803; 82962; 83735; 83880; 84100; 84484; 84702; 85025; 85027; 85379; 85610; 85730; 87040; 87070; 87205; 93005; 93010; 93306-TC; 93971-TC; 94640; 99283-25

== ENCOUNTER 2020-06-25 14:39 | Inpatient (IN) | payer OTHER ==
[2020-06-25 14:58] VITALS: BMI 65.8
[2020-06-25] MEDS ORDERED: ALBUTEROL SO4 2.5/IPRATROPIUM 0.5 INH SOL 3 ML VIAL.NEB. NEB ONE (15:02)
[2020-06-25] MEDS ORDERED: methylPREDNISolone NA SUCC 125 MG/2 ML VIAL IVPUSH ONE (15:02)
[2020-06-25 16:08] LABS: BASO % 0.6 % (0-2.0); EOS % 1.1 % (0-4.5); HEMATOCRIT 41.5 % (32.4-45.2); HEMOGLOBIN 13.2 GM/dL (10.7-15.3); LYMPH % 17.3 % (8-40); MCH 25.8 pg (25.7-33.7); MCHC 31.9 g/dl (32.0-36.0); MEAN CELL VOLUME 80.8 fl (80-96); MEAN PLT VOLUME 8.4 fl (7.5-11.1); MONO % 7.5 % (3.8-10.2); NEUT % 73.5 % (42.8-82.8); PLATELET COUNT 318 K/MM3 (134-434); RBC 5.14 M/mm3 (3.60-5.2); RDW 15.7 % (11.6-15.6); WHITE BLOOD COUNT 11.7 K/mm3 (4.0-10.0)
[2020-06-25 16:37] LABS: CHLORIDE 105 mmol/L (98-107); POTASSIUM 4.4 mmol/L (3.5-5.1); SODIUM 140 mmol/L (136-145)
[2020-06-25 16:40] LABS: INR 1.18 (0.83-1.09); PROTHROMBIN TIME (PATIENT) 14.4 SEC (9.7-13.0)
[2020-06-25 16:41] LABS: VENOUS BASE EXCESS 0.7 mmol/L (-2-2); VENOUS PCO2 54.7 mmHg (38-52); VENOUS PH 7.331 (7.310-7.410)
[2020-06-25 16:42] LABS: ACTIVATED PTT 28.6 SECONDS (25.2-36.5)
[2020-06-25 16:43] LABS: ALBUMIN 3.6 g/dl (3.4-5.0); ANION GAP 8 MMOL/L (8-16); CALCIUM 9.5 mg/dL (8.5-10.1); CO2 27 mmol/L (21-32)
[2020-06-25 16:44] LABS: BLOOD UREA NITROGEN 8.1 mg/dL (7-18); GLUCOSE,RANDOM 167 mg/dL (74-106)
[2020-06-25 16:46] LABS: BILIRUBIN,DIRECT 0.2 mg/dL (0.0-0.2); SGPT/ALT 33 U/L (13-61)
[2020-06-25 16:47] LABS: CREATININE 0.7 mg/dL (0.55-1.3); LDH 226 U/L (84-246); SGOT/AST 23 U/L (15-37)
[2020-06-25 16:48] LABS: ALK PHOS 80 U/L (45-117); BILIRUBIN,TOTAL 0.5 mg/dL (0.2-1); TOT PROT 7.5 g/dl (6.4-8.2)
[2020-06-25 16:49] LABS: N-TERMINAL BNP 57.7 pg/ml (5-125)
[2020-06-25] MEDS ORDERED: LACTATED RINGERS SOLUTION 1,000 ML IV STA (17:15)
[2020-06-25] MEDS ORDERED: ALBUTEROL SO4 HFA INHALER IH PRN (19:03)
[2020-06-25] MEDS ORDERED: AZITHROMYCIN IVPB 500 MG/250 ML BAG IVPB ONE (19:19)
[2020-06-25] MEDS: AZITHROMYCIN IVPB 500 MG/250 ML BAG IVPB SCH (19:24)
[2020-06-25] MEDS: INSULIN SLIDING SCALE (NOVOLOG) 1 VIAL SQ SCH (22:26)
[2020-06-26] MEDS ORDERED: ACETAMINOPHEN 325 MG TABLET (FP) PO ONE (00:21)
[2020-06-26] MEDS: methylPREDNISolone NA SUCC 40 MG/1 ML VIAL IVPUSH SCH ×3 (02:15→18:27)
[2020-06-26 04:43] LABS: EPI CELLS 27 /uL (0-25.1); HYALINE CASTS 0 /uL (0-3.1); PH,URINE 5.5 (5.0-8.0); URINE APPEARANCE CLEAR; URINE BACTERIA 557 /uL (0-1359); URINE BILIRUBIN NEGATIVE (NEGATIVE); URINE COLOR YELLOW; URINE GLUCOSE (UA) 3+ (NEGATIVE); URINE KETONE 2+ (NEGATIVE); URINE LEUK ESTERASE NEGATIVE (NEGATIVE); URINE NITRITE NEGATIVE (NEGATIVE); URINE PROTEIN NEGATIVE (NEGATIVE); URINE RBC 23 /uL (0-23.9); URINE UROBILINOGEN 0.2 mg/dL (0.2-1.0); URINE WBC 10 /uL (0-25.8)
[2020-06-26] MEDS: INSULIN SLIDING SCALE (NOVOLOG) 1 VIAL SQ SCH ×4 (06:38→22:13)
[2020-06-26] MEDS ORDERED: PT OWN MED DRAWER 7, Y5N ONE (09:29)
[2020-06-26 09:47] LABS: BASO % 1.1 % (0-2.0); HEMATOCRIT 40.6 % (32.4-45.2); LYMPH % 11.3 % (8-40); MCHC 32.1 g/dl (32.0-36.0); MEAN CELL VOLUME 81.2 fl (80-96); MONO % 1.3 % (3.8-10.2); NEUT % 86.3 % (42.8-82.8); PLATELET COUNT 322 K/MM3 (134-434); RBC 5.01 M/mm3 (3.60-5.2); WHITE BLOOD COUNT 15.7 K/mm3 (4.0-10.0)
[2020-06-26] MEDS: ENOXAPARIN NA (PORCINE) 40 MG/0.4 ML DISP.SYRIN SQ SCH (09:52)
[2020-06-26] MEDS: AZITHROMYCIN IVPB 500 MG/250 ML BAG IVPB SCH (09:55)
[2020-06-26 10:08] LABS: POTASSIUM 4.4 mmol/L (3.5-5.1)
[2020-06-26 10:16] LABS: CALCIUM 9.7 mg/dL (8.5-10.1)
[2020-06-26 10:17] LABS: ALBUMIN 3.6 g/dl (3.4-5.0); BLOOD UREA NITROGEN 13.3 mg/dL (7-18); MAGNESIUM 2.3 mg/dL (1.8-2.4)
[2020-06-26 10:20] LABS: CREATININE 0.8 mg/dL (0.55-1.3); PHOSPHOROUS 2.8 mg/dL (2.5-4.9)
[2020-06-26 10:21] LABS: BILIRUBIN,TOTAL 0.5 mg/dL (0.2-1); TOT PROT 7.4 g/dl (6.4-8.2)
[2020-06-26] MEDS ORDERED: INSULIN (NOVOLOG) ASPART 100 UNITS/ML 10ML VIAL ONE (11:36)
[2020-06-26] MEDS: ELVITEG/COB/EMTRI/TENOF (GENVOYA) TABLET (NF) PO SCH (13:17)
[2020-06-26] MEDS: FLUCONAZOLE 100 MG TABLET (UD) PO SCH (13:18)
[2020-06-26] MEDS: ACETAMINOPHEN 325 MG TABLET (FP) PO PRN (15:17)
[2020-06-26] MEDS: NYSTATIN 500,000 UNITS/5 ML SUSPENSION PO SCH (18:25)
[2020-06-26] MEDS: ALBUTEROL SO4 HFA INHALER IH SCH (22:13)
[2020-06-26] MEDS: MONTELUKAST NA 10 MG TABLET PO SCH (22:13)
[2020-06-27] MEDS: NYSTATIN 500,000 UNITS/5 ML SUSPENSION PO SCH ×4 (00:20→17:42)
[2020-06-27] MEDS: methylPREDNISolone NA SUCC 40 MG/1 ML VIAL IVPUSH SCH ×3 (01:09→17:42)
[2020-06-27] MEDS: ACETAMINOPHEN 325 MG TABLET (FP) PO PRN (01:10)
[2020-06-27] MEDS: ALBUTEROL SO4 HFA INHALER IH SCH ×3 (06:38→21:00)
[2020-06-27] MEDS: INSULIN SLIDING SCALE (NOVOLOG) 1 VIAL SQ SCH ×4 (06:40→22:00)
[2020-06-27] MEDS: guaiFENesin/CODEINE 10 ML UNIT-DOSE CUPS PO PRN ×2 (08:17→21:01)
[2020-06-27] MEDS ORDERED: PT OWN MED DRAWER 7, Y5N ONE (08:43)
[2020-06-27] MEDS: ELVITEG/COB/EMTRI/TENOF (GENVOYA) TABLET (NF) PO SCH (08:51)
[2020-06-27] MEDS: FLUCONAZOLE 100 MG TABLET (UD) PO SCH (09:02)
[2020-06-27] MEDS: ENOXAPARIN NA (PORCINE) 40 MG/0.4 ML DISP.SYRIN SQ SCH (09:02)
[2020-06-27] MEDS: AZITHROMYCIN IVPB 500 MG/250 ML BAG IVPB SCH (09:03)
[2020-06-27 09:06] LABS: BASO % 0.4 % (0-2.0); HEMATOCRIT 39.9 % (32.4-45.2); HEMOGLOBIN 12.7 GM/dL (10.7-15.3); LYMPH % 8.6 % (8-40); MCH 25.7 pg (25.7-33.7); MCHC 31.9 g/dl (32.0-36.0); MEAN CELL VOLUME 80.7 fl (80-96); MEAN PLT VOLUME 8.6 fl (7.5-11.1); PLATELET COUNT 329 K/MM3 (134-434); RBC 4.95 M/mm3 (3.60-5.2); RDW 15.8 % (11.6-15.6); WHITE BLOOD COUNT 18.7 K/mm3 (4.0-10.0)
[2020-06-27 09:20] LABS: POTASSIUM 4.5 mmol/L (3.5-5.1)
[2020-06-27 09:23] LABS: CALCIUM 9.3 mg/dL (8.5-10.1)
[2020-06-27 09:24] LABS: ALBUMIN 3.6 g/dl (3.4-5.0); BLOOD UREA NITROGEN 16.2 mg/dL (7-18); MAGNESIUM 2.4 mg/dL (1.8-2.4)
[2020-06-27 09:27] LABS: CREATININE 0.9 mg/dL (0.55-1.3); PHOSPHOROUS 2.8 mg/dL (2.5-4.9)
[2020-06-27 09:28] LABS: BILIRUBIN,TOTAL 0.6 mg/dL (0.2-1); TOT PROT 7.4 g/dl (6.4-8.2)
[2020-06-27] MEDS ORDERED: INSULIN (LEVEMIR) 100 UNITS/ML UNITS SQ ONE (12:32)
[2020-06-27] MEDS ORDERED: INSULIN (NOVOLOG) ASPART 100 UNITS/ML 10ML VIAL ONE (17:18)
[2020-06-27] MEDS: MONTELUKAST NA 10 MG TABLET PO SCH (21:00)
[2020-06-28] MEDS: methylPREDNISolone NA SUCC 40 MG/1 ML VIAL IVPUSH SCH ×3 (02:02→21:59)
[2020-06-28] MEDS: NYSTATIN 500,000 UNITS/5 ML SUSPENSION PO SCH ×4 (05:51→17:50)
[2020-06-28] MEDS: ALBUTEROL SO4 HFA INHALER IH SCH ×3 (05:54→21:57)
[2020-06-28] MEDS: INSULIN SLIDING SCALE (NOVOLOG) 1 VIAL SQ SCH ×4 (06:06→21:57)
[2020-06-28] MEDS ORDERED: INSULIN (LEVEMIR) 100 UNITS/ML UNITS SQ SCH ×2 (07:00→22:00)
[2020-06-28 09:10] LABS: BASO % 0.3 % (0-2.0); HEMATOCRIT 40.2 % (32.4-45.2); HEMOGLOBIN 13.2 GM/dL (10.7-15.3); LYMPH % 9.6 % (8-40); MCH 26.2 pg (25.7-33.7); MCHC 32.8 g/dl (32.0-36.0); MEAN CELL VOLUME 79.9 fl (80-96); MEAN PLT VOLUME 8.7 fl (7.5-11.1); MONO % 5.2 % (3.8-10.2); NEUT % 84.9 % (42.8-82.8); PLATELET COUNT 353 K/MM3 (134-434); RBC 5.03 M/mm3 (3.60-5.2); WHITE BLOOD COUNT 15.4 K/mm3 (4.0-10.0)
[2020-06-28 09:25] LABS: POTASSIUM 4.4 mmol/L (3.5-5.1)
[2020-06-28 09:42] LABS: ALBUMIN 3.7 g/dl (3.4-5.0); BLOOD UREA NITROGEN 16.8 mg/dL (7-18)
[2020-06-28 09:48] LABS: PHOSPHOROUS 3.3 mg/dL (2.5-4.9)
[2020-06-28 09:49] LABS: CREATININE 0.8 mg/dL (0.55-1.3)
[2020-06-28 09:50] LABS: BILIRUBIN,TOTAL 0.7 mg/dL (0.2-1); TOT PROT 7.3 g/dl (6.4-8.2)
[2020-06-28 09:54] LABS: MAGNESIUM 2.6 mg/dL (1.8-2.4)
[2020-06-28 09:58] LABS: CALCIUM 9.2 mg/dL (8.5-10.1)
[2020-06-28] MEDS ORDERED: INSULIN (NOVOLOG) ASPART 100 UNITS/ML 10ML VIAL ONE (10:55)
[2020-06-28] MEDS ORDERED: ALBUTEROL SO4 2.5/IPRATROPIUM 0.5 INH SOL 3 ML VIAL.NEB. NEB PRN (11:19)
[2020-06-28] MEDS ORDERED: PT OWN MED DRAWER 7, Y5N ONE (11:56)
[2020-06-28] MEDS: ELVITEG/COB/EMTRI/TENOF (GENVOYA) TABLET (NF) PO SCH (11:57)
[2020-06-28] MEDS: FLUCONAZOLE 100 MG TABLET (UD) PO SCH (11:57)
[2020-06-28] MEDS: ENOXAPARIN NA (PORCINE) 40 MG/0.4 ML DISP.SYRIN SQ SCH (12:04)
[2020-06-28] MEDS: AZITHROMYCIN IVPB 500 MG/250 ML BAG IVPB SCH (12:09)
[2020-06-28] MEDS: INSULIN (LEVEMIR) 100 UNITS/ML UNITS SQ SCH (21:58)
[2020-06-28] MEDS: MONTELUKAST NA 10 MG TABLET PO SCH (21:58)
[2020-06-28] MEDS: guaiFENesin/CODEINE 10 ML UNIT-DOSE CUPS PO PRN (21:59)
[2020-06-29] MEDS: NYSTATIN 500,000 UNITS/5 ML SUSPENSION PO SCH ×4 (00:22→18:08)
[2020-06-29] MEDS: ALBUTEROL SO4 HFA INHALER IH SCH ×2 (06:07→13:36)
[2020-06-29] MEDS: INSULIN (LEVEMIR) 100 UNITS/ML UNITS SQ SCH (06:11)
[2020-06-29] MEDS: INSULIN SLIDING SCALE (NOVOLOG) 1 VIAL SQ SCH ×3 (06:11→16:21)
[2020-06-29 08:44] LABS: HEMATOCRIT 42.1 % (32.4-45.2); HEMOGLOBIN 13.3 GM/dL (10.7-15.3); MCH 25.6 pg (25.7-33.7); MCHC 31.5 g/dl (32.0-36.0); MEAN CELL VOLUME 81.2 fl (80-96); MEAN PLT VOLUME 8.8 fl (7.5-11.1); PLATELET COUNT 355 K/MM3 (134-434); RBC 5.19 M/mm3 (3.60-5.2); RDW 15.6 % (11.6-15.6)
[2020-06-29] MEDS: guaiFENesin/CODEINE 10 ML UNIT-DOSE CUPS PO PRN (08:54)
[2020-06-29] MEDS: methylPREDNISolone NA SUCC 40 MG/1 ML VIAL IVPUSH SCH (09:02)
[2020-06-29 09:03] LABS: POTASSIUM 4.5 mmol/L (3.5-5.1)
[2020-06-29] MEDS: ENOXAPARIN NA (PORCINE) 40 MG/0.4 ML DISP.SYRIN SQ SCH (09:03)
[2020-06-29] MEDS ORDERED: PT OWN MED DRAWER 7, Y5N ONE ×2 (09:12→09:37)
[2020-06-29 09:18] LABS: CALCIUM 9.1 mg/dL (8.5-10.1)
[2020-06-29 09:19] LABS: ALBUMIN 3.7 g/dl (3.4-5.0); BLOOD UREA NITROGEN 19.1 mg/dL (7-18); MAGNESIUM 2.5 mg/dL (1.8-2.4)
[2020-06-29 09:24] LABS: TOT PROT 7.3 g/dl (6.4-8.2)
[2020-06-29 09:25] LABS: BILIRUBIN,TOTAL 0.5 mg/dL (0.2-1)
[2020-06-29] MEDS: AZITHROMYCIN IVPB 500 MG/250 ML BAG IVPB SCH (09:56)
[2020-06-29] MEDS: FLUCONAZOLE 100 MG TABLET (UD) PO SCH (09:56)
[2020-06-29] MEDS ORDERED: INSULIN (NOVOLOG) ASPART 100 UNITS/ML 10ML VIAL ONE (12:00)
[2020-06-29] MEDS: ELVITEG/COB/EMTRI/TENOF (GENVOYA) TABLET (NF) PO SCH (12:08)
[2020-06-29] MEDS ORDERED: INSULIN (LEVEMIR) 100 UNITS/ML UNITS SQ SCH ×2 (15:01→22:00)
[2020-06-29] MEDS ORDERED: INSULIN (LEVEMIR) 100 UNITS/ML UNITS SQ ONE ×2 (15:03→16:08)
[2020-06-29 15:10] VITALS: BP 131/75; PULSE 74; TEMP 97.6
== END 2020-06-29 19:26 | disposition home or self-care (01) | DRG 872 ==
LOC: JER 14:39 → JERBED 17:19 → J6S 23:42
PROVIDERS: ADMIT Internal Medicine; ATTEND Student in an Organized Health Care Education/Training Program
DX: A41.9 Sepsis, unspecified organism (principal); J45.41 Moderate persistent asthma with (acute) exacerbation; E87.2 Acidosis; Z68.44 Body mass index [BMI] 60.0-69.9, adult; E66.01 Morbid (severe) obesity due to excess calories; J20.8 Acute bronchitis due to other specified organisms; E11.9 Type 2 diabetes mellitus without complications; Z79.84 Long term (current) use of oral hypoglycemic drugs; M79.7 Fibromyalgia; Z21 Asymptomatic human immunodeficiency virus [HIV] infection status; K14.9 Disease of tongue, unspecified; G47.33 Obstructive sleep apnea (adult) (pediatric); Z91.14 Patient's other noncompliance with medication regimen
CPT/HCPCS: 36415; 71045-TC-FY; 80053; 81003; 82248; 82550; 82728; 82803; 82962; 83036; 83605; 83615; 83735; 83880; 84100; 84484; 85025; 85027; 85379; 85610; 85730; 86140; 86769; 87040; 87086; 87804; 93005; 93010; 94150; 94640; 99285-25; C9803; U0003

== ENCOUNTER 2020-07-09 14:16 | Inpatient (IN) | payer OTHER ==
[2020-07-09] MEDS ORDERED: LACTATED RINGERS SOLUTION 1000 ML INFUS.BAG IV ONE ×2 (16:39→18:26)
[2020-07-09] MEDS ORDERED: ACETAMINOPHEN 1000 MG/100 ML VIAL (NON FORMULARY) IVPB ONE (16:39)
[2020-07-09 16:43] LABS: BASO % 1.1 % (0-2.0); EOS % 0.9 % (0-4.5); HEMATOCRIT 41.9 % (32.4-45.2); LYMPH % 19.4 % (8-40); MCH 25.3 pg (25.7-33.7); MEAN CELL VOLUME 81.7 fl (80-96); MEAN PLT VOLUME 8.5 fl (7.5-11.1); MONO % 10.2 % (3.8-10.2); NEUT % 68.4 % (42.8-82.8); PLATELET COUNT 244 K/MM3 (134-434); RBC 5.13 M/mm3 (3.60-5.2); RDW 16.1 % (11.6-15.6); WHITE BLOOD COUNT 12.5 K/mm3 (4.0-10.0)
[2020-07-09 16:48] LABS: EPI CELLS >36 /uL (0-25.1); HYALINE CASTS 6 /uL (0-3.1); URINE APPEARANCE CLOUDY; URINE BACTERIA 853 /uL (0-1359); URINE BILIRUBIN NEGATIVE (NEGATIVE); URINE COLOR YELLOW; URINE GLUCOSE (UA) 3+ (NEGATIVE); URINE KETONE TRACE (NEGATIVE); URINE LEUK ESTERASE NEGATIVE (NEGATIVE); URINE NITRITE NEGATIVE (NEGATIVE); URINE PROTEIN TRACE (NEGATIVE); URINE WBC 21 /uL (0-25.8)
[2020-07-09 16:50] LABS: INR 1.02 (0.83-1.09); PROTHROMBIN TIME (PATIENT) 12.3 SEC (9.7-13.0)
[2020-07-09 16:53] LABS: ACTIVATED PTT 25.2 SECONDS (25.2-36.5)
[2020-07-09 17:03] LABS: CHLORIDE 104 mmol/L (98-107); POTASSIUM 4.1 mmol/L (3.5-5.1); SODIUM 138 mmol/L (136-145)
[2020-07-09 17:05] LABS: CALCIUM 9.4 mg/dL (8.5-10.1)
[2020-07-09 17:06] LABS: ALBUMIN 3.2 g/dl (3.4-5.0); ANION GAP 7 MMOL/L (8-16); BLOOD UREA NITROGEN 14.8 mg/dL (7-18); CO2 27 mmol/L (21-32); GLUCOSE,RANDOM 182 mg/dL (74-106); LIPASE 83 U/L (73-393); MAGNESIUM 1.9 mg/dL (1.8-2.4)
[2020-07-09 17:09] LABS: SGOT/AST 21 U/L (15-37); SGPT/ALT 44 U/L (13-61)
[2020-07-09 17:10] LABS: BILIRUBIN,TOTAL 0.4 mg/dL (0.2-1); URINE CRYSTALS CALCIUM OXALATE /hpf; URINE RBC 22 /uL (0-23.9)
[2020-07-09 17:11] LABS: TOT PROT 6.5 g/dl (6.4-8.2)
[2020-07-09 17:12] LABS: ALK PHOS 58 U/L (45-117)
[2020-07-09] MEDS ORDERED: ACETAMINOPHEN INJECTION 100 ML IVPB ONE ×3 (17:18→23:55)
[2020-07-09 17:39] LABS: HCG,QUALITATIVE URINE Negative
[2020-07-09] MEDS ORDERED: SODIUM CHLORIDE 0.9% 500 ML INFUS.BAG IV ONE (21:24)
[2020-07-09] MEDS ORDERED: CEFTRIAXONE 1 GM/50 ML BAG ONE (21:37)
[2020-07-10] MEDS: SODIUM CHLORIDE 1,000 ML IV SCH (00:09)
[2020-07-10] MEDS: ACETAMINOPHEN 1000 MG/100 ML VIAL (NON FORMULARY) IVPB PRN ×2 (00:10→22:11)
[2020-07-10 04:58] VITALS: BMI 150.4
[2020-07-10] MEDS: INSULIN SLIDING SCALE (NOVOLOG) 1 VIAL SQ SCH ×4 (06:00→22:22)
[2020-07-10 08:17] LABS: HEMATOCRIT 38.3 % (32.4-45.2); HEMOGLOBIN 12.4 GM/dL (10.7-15.3); MCH 26.2 pg (25.7-33.7); MCHC 32.3 g/dl (32.0-36.0); MEAN CELL VOLUME 81.2 fl (80-96); MEAN PLT VOLUME 8.9 fl (7.5-11.1); PLATELET COUNT 211 K/MM3 (134-434); RBC 4.72 M/mm3 (3.60-5.2); RDW 16.1 % (11.6-15.6); WHITE BLOOD COUNT 10.3 K/mm3 (4.0-10.0)
[2020-07-10 08:31] LABS: POTASSIUM 3.6 mmol/L (3.5-5.1)
[2020-07-10 08:41] LABS: BLOOD UREA NITROGEN 10.6 mg/dL (7-18)
[2020-07-10 08:42] LABS: CALCIUM 8.3 mg/dL (8.5-10.1)
[2020-07-10 08:43] LABS: MAGNESIUM 1.8 mg/dL (1.8-2.4)
[2020-07-10 08:46] LABS: CREATININE 0.7 mg/dL (0.55-1.3); PHOSPHOROUS 2.8 mg/dL (2.5-4.9)
[2020-07-10 08:47] LABS: BILIRUBIN,TOTAL 0.4 mg/dL (0.2-1); TOT PROT 6.1 g/dl (6.4-8.2)
[2020-07-10] MEDS ORDERED: INSULIN (NOVOLOG) ASPART 100 UNITS/ML 10ML VIAL ONE (09:03)
[2020-07-10] MEDS ORDERED: ALBUTEROL SO4 HFA INHALER IH PRN (09:11)
[2020-07-10] MEDS ORDERED: PATIENT'S OWN MEDICATION (NON-FORMULARY) (Elviteg/Cob/Emtri/Tenof Alafen 1 TAB Tablet) PO SCH (10:00)
[2020-07-10] MEDS: NYSTATIN 500,000 UNITS/5 ML SUSPENSION PO SCH ×3 (10:40→23:07)
[2020-07-10] MEDS: ENOXAPARIN NA (PORCINE) 40 MG/0.4 ML DISP.SYRIN SQ SCH (10:40)
[2020-07-10] MEDS: BICTEGRAV/EMTRICIT/TENOFOV (BIKTARVY) 50-200-25 MG TABLET PO SCH (12:21)
[2020-07-10] MEDS: ALBUTEROL SO4 2.5/IPRATROPIUM 0.5 INH SOL 3 ML VIAL.NEB. NEB PRN (22:13)
[2020-07-10] MEDS: MONTELUKAST NA 10 MG TABLET PO SCH (22:14)
[2020-07-11] MEDS: SODIUM CHLORIDE 1,000 ML IV SCH (05:09)
[2020-07-11] MEDS: ALBUTEROL SO4 2.5/IPRATROPIUM 0.5 INH SOL 3 ML VIAL.NEB. NEB PRN (05:09)
[2020-07-11] MEDS: NYSTATIN 500,000 UNITS/5 ML SUSPENSION PO SCH ×3 (05:23→16:59)
[2020-07-11] MEDS: INSULIN SLIDING SCALE (NOVOLOG) 1 VIAL SQ SCH ×4 (06:05→21:04)
[2020-07-11 09:04] LABS: HEMATOCRIT 37.7 % (32.4-45.2); HEMOGLOBIN 12.3 GM/dL (10.7-15.3); LYMPH % 19.1 % (8-40); MCH 26.7 pg (25.7-33.7); MCHC 32.5 g/dl (32.0-36.0); MEAN CELL VOLUME 82.2 fl (80-96); MEAN PLT VOLUME 8.9 fl (7.5-11.1); MONO % 9.3 % (3.8-10.2); NEUT % 69.6 % (42.8-82.8); PLATELET COUNT 212 K/MM3 (134-434); RBC 4.59 M/mm3 (3.60-5.2); WHITE BLOOD COUNT 9.1 K/mm3 (4.0-10.0)
[2020-07-11 09:16] LABS: POTASSIUM 3.9 mmol/L (3.5-5.1)
[2020-07-11 09:27] LABS: ALBUMIN 3.1 g/dl (3.4-5.0); BLOOD UREA NITROGEN 10.7 mg/dL (7-18); CALCIUM 8.3 mg/dL (8.5-10.1)
[2020-07-11 09:31] LABS: BILIRUBIN,TOTAL 0.2 mg/dL (0.2-1); CREATININE 0.8 mg/dL (0.55-1.3)
[2020-07-11] MEDS: GABAPENTIN 300 MG CAPSULE PO SCH ×2 (10:18→21:05)
[2020-07-11] MEDS: BUDESONIDE/FORMETEROL FUMARATE 160/4.5 mcg INHALER IH SCH ×2 (10:18→21:06)
[2020-07-11] MEDS: BICTEGRAV/EMTRICIT/TENOFOV (BIKTARVY) 50-200-25 MG TABLET PO SCH (10:19)
[2020-07-11] MEDS: ENOXAPARIN NA (PORCINE) 40 MG/0.4 ML DISP.SYRIN SQ SCH (10:19)
[2020-07-11] MEDS ORDERED: ACETAMINOPHEN 325 MG TABLET (FP) PO PRN (17:41)
[2020-07-11] MEDS: MONTELUKAST NA 10 MG TABLET PO SCH (21:05)
[2020-07-12] MEDS: NYSTATIN 500,000 UNITS/5 ML SUSPENSION PO SCH ×3 (00:01→12:37)
[2020-07-12] MEDS: INSULIN SLIDING SCALE (NOVOLOG) 1 VIAL SQ SCH ×3 (06:23→18:48)
[2020-07-12] MEDS ORDERED: INSULIN (NOVOLOG) ASPART 100 UNITS/ML 10ML VIAL ONE ×2 (06:32→11:44)
[2020-07-12] MEDS ORDERED: INSULIN (LEVEMIR) 100 UNITS/ML UNITS SQ ONE (06:32)
[2020-07-12 06:50] LABS: BASO % 0.9 % (0-2.0); EOS % 0.9 % (0-4.5); HEMATOCRIT 39.2 % (32.4-45.2); HEMOGLOBIN 12.6 GM/dL (10.7-15.3); LYMPH % 15.8 % (8-40); MCH 26.1 pg (25.7-33.7); MCHC 32.2 g/dl (32.0-36.0); MEAN CELL VOLUME 81.2 fl (80-96); MEAN PLT VOLUME 8.4 fl (7.5-11.1); MONO % 8.7 % (3.8-10.2); NEUT % 73.7 % (42.8-82.8); PLATELET COUNT 210 K/MM3 (134-434); RBC 4.83 M/mm3 (3.60-5.2); RDW 16.4 % (11.6-15.6); WHITE BLOOD COUNT 11.1 K/mm3 (4.0-10.0)
[2020-07-12 07:16] LABS: POTASSIUM 3.9 mmol/L (3.5-5.1)
[2020-07-12 07:18] LABS: CALCIUM 8.6 mg/dL (8.5-10.1)
[2020-07-12 07:19] LABS: ALBUMIN 3.2 g/dl (3.4-5.0); BLOOD UREA NITROGEN 8.4 mg/dL (7-18); MAGNESIUM 2.1 mg/dL (1.8-2.4)
[2020-07-12 07:23] LABS: CREATININE 0.8 mg/dL (0.55-1.3)
[2020-07-12 07:24] LABS: BILIRUBIN,TOTAL 0.3 mg/dL (0.2-1); TOT PROT 6.2 g/dl (6.4-8.2)
[2020-07-12] MEDS: BUDESONIDE/FORMETEROL FUMARATE 160/4.5 mcg INHALER IH SCH (10:19)
[2020-07-12] MEDS: GABAPENTIN 300 MG CAPSULE PO SCH (10:21)
[2020-07-12] MEDS: ENOXAPARIN NA (PORCINE) 40 MG/0.4 ML DISP.SYRIN SQ SCH (10:22)
[2020-07-12] MEDS: BICTEGRAV/EMTRICIT/TENOFOV (BIKTARVY) 50-200-25 MG TABLET PO SCH (10:23)
[2020-07-12] MEDS ORDERED: FUROSEMIDE 20 MG TABLET (FP) PO SCH (10:30)
[2020-07-12 13:58] VITALS: BP 153/71; PULSE 87; TEMP 97.8
[2020-07-12] MEDS ORDERED: GABAPENTIN 300 MG CAPSULE PO SCH (22:00)
== END 2020-07-12 20:17 | disposition home or self-care (01) | DRG 690 ==
LOC: JER 14:16 → JERFT 14:16 → JERBED 21:49 → J7W 07-10 03:31
PROVIDERS: ADMIT Internal Medicine; ATTEND Nurse Practitioner Acute Care
DX: N39.0 Urinary tract infection, site not specified (principal); Z68.44 Body mass index [BMI] 60.0-69.9, adult; E87.2 Acidosis; R10.30 Lower abdominal pain, unspecified; J45.909 Unspecified asthma, uncomplicated; E66.01 Morbid (severe) obesity due to excess calories; E11.9 Type 2 diabetes mellitus without complications; M79.7 Fibromyalgia; G47.33 Obstructive sleep apnea (adult) (pediatric); R19.7 Diarrhea, unspecified; Z21 Asymptomatic human immunodeficiency virus [HIV] infection status; K76.0 Fatty (change of) liver, not elsewhere classified
CPT/HCPCS: 36415; 71046-TC-FY; 74177-TC; 80053; 81003; 82085; 82272; 82438; 82550; 82962; 83605; 83690; 83735; 84100; 84302; 84443; 84484; 84703; 84999; 85025; 85027; 85610; 85730; 86359; 86360; 86850; 86900; 86901; 87045; 87046; 87086; 87177; 87186; 87209; 87328; 87329; 87798; 93005; 93010; 94640; 99285-25; C9803; J0131; Q9967; U0003

== ENCOUNTER 2020-09-23 13:31 | Emergency (ER) | payer OTHER ==
[2020-09-23 13:55] VITALS: BMI 65.8
[2020-09-23] MEDS ORDERED: ALBUTEROL SO4 2.5/IPRATROPIUM 0.5 INH SOL 3 ML VIAL.NEB. NEB ONE ×2 (14:01→14:02)
[2020-09-23] MEDS ORDERED: methylPREDNISolone NA SUCC 125 MG/2 ML VIAL IVPUSH ONE (14:03)
[2020-09-23] MEDS ORDERED: MAGNESIUM SULF 50% (8.12 MEQ/2 ML-1 GM VIAL) IVPB ONE (14:03)
[2020-09-23] MEDS ORDERED: MAGNESIUM SULFATE IN WATER 2 GM/50 ML IVPB IVPB ONE (14:09)
[2020-09-23] MEDS ORDERED: methylPREDNISolone NA SUCC 125 MG/2 ML VIAL ONE (14:09)
[2020-09-23 15:03] LABS: BASO % 0.5 % (0-2.0); EOS % 1.8 % (0-4.5); HEMATOCRIT 42.7 % (32.4-45.2); HEMOGLOBIN 13.6 GM/dL (10.7-15.3); LYMPH % 29.6 % (8-40); MCHC 31.9 g/dl (32.0-36.0); MEAN CELL VOLUME 81.6 fl (80-96); MEAN PLT VOLUME 8.8 fl (7.5-11.1); MONO % 7.1 % (3.8-10.2); PLATELET COUNT 248 K/MM3 (134-434); RBC 5.23 M/mm3 (3.60-5.2); VENOUS BASE EXCESS -1.9 mmol/L (-2-2); VENOUS PCO2 44.8 mmHg (38-52); VENOUS PH 7.346 (7.310-7.410); WHITE BLOOD COUNT 8.2 K/mm3 (4.0-10.0)
[2020-09-23 15:24] LABS: CHLORIDE 103 mmol/L (98-107); SODIUM 139 mmol/L (136-145)
[2020-09-23 15:26] LABS: GLUCOSE,RANDOM 295 mg/dL (74-106)
[2020-09-23 15:27] LABS: ALBUMIN 3.5 g/dl (3.4-5.0); ANION GAP 8 MMOL/L (8-16); BLOOD UREA NITROGEN 8.9 mg/dL (7-18); CO2 27 mmol/L (21-32)
[2020-09-23 15:30] LABS: CREATININE 0.9 mg/dL (0.55-1.3); SGPT/ALT 32 U/L (13-61)
[2020-09-23 15:31] LABS: BILIRUBIN,TOTAL 0.4 mg/dL (0.2-1); TOT PROT 7.2 g/dl (6.4-8.2)
[2020-09-23 15:32] LABS: ALK PHOS 87 U/L (45-117)
[2020-09-23 15:36] LABS: SGOT/AST 31 U/L (15-37)
[2020-09-23 18:15] VITALS: BP 148/86; PULSE 90; TEMP 98.9
== END 2020-09-23 18:29 | disposition home or self-care (01) ==
LOC: JER 13:31
PROC: 3E0F7GC Introduction of Other Therapeutic Substance into Respiratory Tract, Via Natural or Artificial Opening (ICD-10-PCS; principal; 2020-09-23)
PROC: 3E033GC Introduction of Other Therapeutic Substance into Peripheral Vein, Percutaneous Approach (ICD-10-PCS; 2020-09-23)
PROC: 3E033GC Introduction of Other Therapeutic Substance into Peripheral Vein, Percutaneous Approach (ICD-10-PCS; 2020-09-23)
DX: J45.901 Unspecified asthma with (acute) exacerbation (principal); Z11.52 Encounter for screening for COVID-19
CPT/HCPCS: 36415; 71045-TC-FY; 80053; 82550; 82803; 84484; 85025; 93005; 93010; 93970-TC; 99285-25; C9803; U0003; U0005

== ENCOUNTER 2020-10-14 15:36 | Inpatient (IN) | payer OTHER ==
[2020-10-14] MEDS ORDERED: ALBUTEROL SO4 2.5/IPRATROPIUM 0.5 INH SOL 3 ML VIAL.NEB. NEB ONE (15:39)
[2020-10-14] MEDS ORDERED: MAGNESIUM SULF 50% (8.12 MEQ/2 ML-1 GM VIAL) IVPB ONE (15:39)
[2020-10-14] MEDS ORDERED: methylPREDNISolone NA SUCC 125 MG/2 ML VIAL IVPUSH ONE (15:39)
[2020-10-14 16:23] LABS: BASO % 0.7 % (0-2.0); EOS % 2.2 % (0-4.5); HEMATOCRIT 41.9 % (32.4-45.2); HEMOGLOBIN 13.3 GM/dL (10.7-15.3); LYMPH % 36.1 % (8-40); MCH 25.3 pg (25.7-33.7); MCHC 31.8 g/dl (32.0-36.0); MEAN CELL VOLUME 79.5 fl (80-96); MEAN PLT VOLUME 8.4 fl (7.5-11.1); MONO % 9.7 % (3.8-10.2); NEUT % 51.3 % (42.8-82.8); PLATELET COUNT 221 10^3/uL (134-434); RBC 5.27 M/mm3 (3.60-5.2); WHITE BLOOD COUNT 9.1 K/mm3 (4.0-10.0)
[2020-10-14 16:28] LABS: VENOUS BASE EXCESS -3.2 mmol/L (-2-2); VENOUS O2 SATURATION 98.7 % (70-80); VENOUS PCO2 47.2 mmHg (38-52); VENOUS PH 7.311 (7.310-7.410)
[2020-10-14 16:29] LABS: INR 1.16 (0.83-1.09); PROTHROMBIN TIME (PATIENT) 14.2 SEC (9.7-13.0)
[2020-10-14 16:43] LABS: CHLORIDE 102 mmol/L (98-107); SODIUM 135 mmol/L (136-145)
[2020-10-14 16:45] LABS: ALBUMIN 3.3 g/dl (3.4-5.0); ANION GAP 10 MMOL/L (8-16); CO2 23 mmol/L (21-32); GLUCOSE,RANDOM 285 mg/dL (74-106)
[2020-10-14 16:48] LABS: CREATININE 0.9 mg/dL (0.55-1.3); SGOT/AST 38 U/L (15-37); SGPT/ALT 40 U/L (13-61)
[2020-10-14 16:50] LABS: BILIRUBIN,TOTAL 0.4 mg/dL (0.2-1); TOT PROT 7.2 g/dl (6.4-8.2)
[2020-10-14 16:51] LABS: ALK PHOS 88 U/L (45-117)
[2020-10-14] MEDS ORDERED: ACETAMINOPHEN 1000 MG/100 ML VIAL (NON FORMULARY) IVPB ONE (17:16)
[2020-10-14] MEDS ORDERED: ACETAMINOPHEN INJECTION 100 ML IVPB ONE (17:26)
[2020-10-14] MEDS ORDERED: NYSTATIN POWDER 100,000 UNITS/GM - 15 GM TOPICAL POWDER TP ONE (18:23)
[2020-10-14] MEDS ORDERED: ACETAMINOPHEN 325 MG TABLET (FP) PO PRN (18:55)
[2020-10-14] MEDS ORDERED: INSULIN (LEVEMIR) 100 UNITS/ML UNITS SQ SCH (22:00)
[2020-10-14] MEDS ORDERED: methylPREDNISolone NA SUCC 125 MG/2 ML VIAL ONE (22:51)
[2020-10-14] MEDS ORDERED: INSULIN (LEVEMIR) 100 UNITS/ML UNITS SQ ONE (22:52)
[2020-10-14] MEDS: methylPREDNISolone NA SUCC 40 MG/1 ML VIAL IVPUSH SCH (22:58)
[2020-10-14] MEDS: INSULIN SLIDING SCALE (NOVOLOG) 1 VIAL SQ SCH (23:03)
[2020-10-15] MEDS ORDERED: methylPREDNISolone NA SUCC 125 MG/2 ML VIAL ONE ×2 (01:20→06:07)
[2020-10-15] MEDS: methylPREDNISolone NA SUCC 40 MG/1 ML VIAL IVPUSH SCH ×6 (01:27→19:39)
[2020-10-15] MEDS ORDERED: INSULIN SLIDING SCALE (NOVOLOG) 1 VIAL SQ ONE (06:09)
[2020-10-15] MEDS: INSULIN SLIDING SCALE (NOVOLOG) 1 VIAL SQ SCH ×4 (06:15→23:22)
[2020-10-15 06:54] LABS: BASO % 0.4 % (0-2.0); HEMATOCRIT 41.7 % (32.4-45.2); HEMOGLOBIN 13.4 GM/dL (10.7-15.3); MCH 25.4 pg (25.7-33.7); MCHC 32.1 g/dl (32.0-36.0); MEAN CELL VOLUME 79.1 fl (80-96); MONO % 2.3 % (3.8-10.2); NEUT % 71.3 % (42.8-82.8); PLATELET COUNT 247 10^3/uL (134-434); RBC 5.27 M/mm3 (3.60-5.2); RDW 15.8 % (11.6-15.6); WHITE BLOOD COUNT 11.1 K/mm3 (4.0-10.0)
[2020-10-15 07:24] LABS: ALBUMIN 3.6 g/dl (3.4-5.0); BLOOD UREA NITROGEN 10.1 mg/dL (7-18); CALCIUM 9.5 mg/dL (8.5-10.1)
[2020-10-15 07:28] LABS: CREATININE 0.8 mg/dL (0.55-1.3)
[2020-10-15 07:29] LABS: BILIRUBIN,TOTAL 0.6 mg/dL (0.2-1); TOT PROT 7.8 g/dl (6.4-8.2)
[2020-10-15] MEDS ORDERED: PT OWN MED DRAWER 7, Y5N ONE (10:00)
[2020-10-15] MEDS ORDERED: BICTEGRAV/EMTRICIT/TENOFOV (BIKTARVY) 50-200-25 MG TABLET PO SCH (10:00)
[2020-10-15] MEDS ORDERED: FUROSEMIDE 20 MG TABLET (FP) PO SCH (10:00)
[2020-10-15] MEDS ORDERED: FUROSEMIDE 40 MG TABLET (FP) ONE (10:00)
[2020-10-15] MEDS ORDERED: ENOXAPARIN NA (PORCINE) 40 MG/0.4 ML DISP.SYRIN SQ SCH (10:00)
[2020-10-15] MEDS ORDERED: ELVITEG/COB/EMTRI/TENOF (GENVOYA) TABLET (NF) PO SCH (10:00)
[2020-10-15] MEDS ORDERED: ENOXAPARIN NA (PORCINE) 40 MG/0.4 ML DISP.SYRIN SQ ONE (10:01)
[2020-10-15] MEDS ORDERED: ALBUTEROL SO4 0.083% IH SOL 2.5 MG/3 ML VIAL.NEB. NEB PRN (10:45)
[2020-10-15] MEDS: FLUTICASONE/SALMETEROL 100 MCG/50 MCG DISKUS IH SCH (10:59)
[2020-10-15] MEDS ORDERED: ALBUTEROL SO4 2.5/IPRATROPIUM 0.5 INH SOL 3 ML VIAL.NEB. NEB SCH (12:00)
[2020-10-15 13:57] VITALS: BMI 65.1
[2020-10-15] MEDS: ALBUTEROL SO4 2.5/IPRATROPIUM 0.5 INH SOL 3 ML VIAL.NEB. NEB SCH ×2 (16:04→20:00)
[2020-10-15] MEDS: ACETAMINOPHEN 325 MG TABLET (FP) PO PRN (16:54)
[2020-10-15] MEDS ORDERED: INSULIN (LEVEMIR) 100 UNITS/ML UNITS SQ SCH ×2 (22:00)
[2020-10-15] MEDS: NYSTATIN POWDER 100,000 UNITS/GM - 15 GM TOPICAL POWDER TP SCH (22:56)
[2020-10-16] MEDS ORDERED: INSULIN REGULAR HUMAN 100 UNITS/ML *VIAL SQ ONE (01:02)
[2020-10-16] MEDS: methylPREDNISolone NA SUCC 40 MG/1 ML VIAL IVPUSH SCH ×4 (01:03→18:50)
[2020-10-16] MEDS: FLUTICASONE/SALMETEROL 100 MCG/50 MCG DISKUS IH SCH ×3 (01:04→21:45)
[2020-10-16] MEDS ORDERED: INSULIN (NOVOLOG) ASPART 100 UNITS/ML 10ML VIAL SQ ONE (01:15)
[2020-10-16] MEDS: INSULIN SLIDING SCALE (NOVOLOG) 1 VIAL SQ SCH ×4 (06:13→21:41)
[2020-10-16] MEDS: ALBUTEROL SO4 2.5/IPRATROPIUM 0.5 INH SOL 3 ML VIAL.NEB. NEB SCH ×3 (08:52→21:07)
[2020-10-16 09:47] LABS: HEMATOCRIT 42.4 % (32.4-45.2); HEMOGLOBIN 13.2 GM/dL (10.7-15.3); MCHC 31.1 g/dl (32.0-36.0); MEAN CELL VOLUME 80.5 fl (80-96); MEAN PLT VOLUME 8.6 fl (7.5-11.1); PLATELET COUNT 286 10^3/uL (134-434); RBC 5.27 M/mm3 (3.60-5.2); RDW 16.1 % (11.6-15.6); WHITE BLOOD COUNT 14.7 K/mm3 (4.0-10.0)
[2020-10-16 10:06] LABS: CHLORIDE 100 mmol/L (98-107); SODIUM 133 mmol/L (136-145)
[2020-10-16] MEDS ORDERED: PT OWN MED DRAWER 7, Y5N ONE ×2 (10:08→18:40)
[2020-10-16 10:12] LABS: ALBUMIN 3.8 g/dl (3.4-5.0); ANION GAP 8 MMOL/L (8-16); CALCIUM 9.6 mg/dL (8.5-10.1); CO2 26 mmol/L (21-32); MAGNESIUM 2.6 mg/dL (1.8-2.4)
[2020-10-16] MEDS: ENOXAPARIN NA (PORCINE) 40 MG/0.4 ML DISP.SYRIN SQ SCH (10:12)
[2020-10-16] MEDS: FUROSEMIDE 20 MG TABLET (FP) PO SCH (10:12)
[2020-10-16] MEDS: ELVITEG/COB/EMTRI/TENOF (GENVOYA) TABLET (NF) PO SCH (10:14)
[2020-10-16 10:15] LABS: CREATININE 0.9 mg/dL (0.55-1.3); SGOT/AST 31 U/L (15-37); SGPT/ALT 49 U/L (13-61)
[2020-10-16 10:16] LABS: BILIRUBIN,TOTAL 0.6 mg/dL (0.2-1); TOT PROT 7.8 g/dl (6.4-8.2)
[2020-10-16 10:17] LABS: ALK PHOS 85 U/L (45-117)
[2020-10-16] MEDS: NYSTATIN POWDER 100,000 UNITS/GM - 15 GM TOPICAL POWDER TP SCH ×2 (10:18→21:45)
[2020-10-16 10:31] LABS: GLUCOSE,RANDOM 452 mg/dL (74-106)
[2020-10-16] MEDS ORDERED: INSULIN (NOVOLOG) ASPART 100 UNITS/ML 10ML VIAL ONE ×3 (11:07→21:15)
[2020-10-16] MEDS: INSULIN (LEVEMIR) 100 UNITS/ML UNITS SQ SCH ×2 (11:10→21:41)
[2020-10-16] MEDS: ACETAMINOPHEN 325 MG TABLET (FP) PO PRN (12:59)
[2020-10-16] MEDS ORDERED: INSULIN (LEVEMIR) 100 UNITS/ML UNITS SQ ONE (21:16)
[2020-10-17] MEDS: methylPREDNISolone NA SUCC 40 MG/1 ML VIAL IVPUSH SCH ×4 (01:12→18:15)
[2020-10-17] MEDS ORDERED: INSULIN (NOVOLOG) ASPART 100 UNITS/ML 10ML VIAL SQ ONE (06:10)
[2020-10-17] MEDS: INSULIN (LEVEMIR) 100 UNITS/ML UNITS SQ SCH ×2 (06:16→21:08)
[2020-10-17] MEDS: INSULIN SLIDING SCALE (NOVOLOG) 1 VIAL SQ SCH ×4 (06:17→21:08)
[2020-10-17] MEDS: ALBUTEROL SO4 2.5/IPRATROPIUM 0.5 INH SOL 3 ML VIAL.NEB. NEB SCH ×4 (07:40→20:38)
[2020-10-17 09:22] LABS: HEMATOCRIT 44.2 % (32.4-45.2); HEMOGLOBIN 13.8 GM/dL (10.7-15.3); MCH 24.9 pg (25.7-33.7); MCHC 31.3 g/dl (32.0-36.0); MEAN CELL VOLUME 79.5 fl (80-96); MEAN PLT VOLUME 8.7 fl (7.5-11.1); PLATELET COUNT 330 10^3/uL (134-434); RBC 5.56 M/mm3 (3.60-5.2); RDW 15.9 % (11.6-15.6); WHITE BLOOD COUNT 14.7 K/mm3 (4.0-10.0)
[2020-10-17] MEDS ORDERED: PT OWN MED DRAWER 7, Y5N ONE (10:02)
[2020-10-17] MEDS: ENOXAPARIN NA (PORCINE) 40 MG/0.4 ML DISP.SYRIN SQ SCH (10:03)
[2020-10-17] MEDS: FUROSEMIDE 20 MG TABLET (FP) PO SCH (10:04)
[2020-10-17] MEDS: ELVITEG/COB/EMTRI/TENOF (GENVOYA) TABLET (NF) PO SCH (10:04)
[2020-10-17] MEDS: NYSTATIN POWDER 100,000 UNITS/GM - 15 GM TOPICAL POWDER TP SCH ×2 (10:05→21:07)
[2020-10-17 10:07] LABS: ALBUMIN 3.9 g/dl (3.4-5.0); BLOOD UREA NITROGEN 14.9 mg/dL (7-18); CALCIUM 9.7 mg/dL (8.5-10.1)
[2020-10-17 10:08] LABS: MAGNESIUM 2.4 mg/dL (1.8-2.4)
[2020-10-17] MEDS: FLUTICASONE/SALMETEROL 100 MCG/50 MCG DISKUS IH SCH ×2 (10:09→21:07)
[2020-10-17 10:11] LABS: PHOSPHOROUS 2.8 mg/dL (2.5-4.9)
[2020-10-17 10:12] LABS: BILIRUBIN,TOTAL 0.5 mg/dL (0.2-1); TOT PROT 8.2 g/dl (6.4-8.2)
[2020-10-17] MEDS ORDERED: INSULIN (NOVOLOG) ASPART 100 UNITS/ML 10ML VIAL ONE (20:50)
[2020-10-18] MEDS: methylPREDNISolone NA SUCC 40 MG/1 ML VIAL IVPUSH SCH ×2 (00:23→06:20)
[2020-10-18] MEDS: INSULIN SLIDING SCALE (NOVOLOG) 1 VIAL SQ SCH ×3 (06:20→16:24)
[2020-10-18] MEDS: INSULIN (LEVEMIR) 100 UNITS/ML UNITS SQ SCH (06:21)
[2020-10-18] MEDS: ALBUTEROL SO4 2.5/IPRATROPIUM 0.5 INH SOL 3 ML VIAL.NEB. NEB SCH ×3 (08:43→16:27)
[2020-10-18 09:09] LABS: BASO % 0.3 % (0-2.0); HEMATOCRIT 43.1 % (32.4-45.2); HEMOGLOBIN 13.6 GM/dL (10.7-15.3); MCHC 31.4 g/dl (32.0-36.0); MEAN CELL VOLUME 79.6 fl (80-96); MEAN PLT VOLUME 8.6 fl (7.5-11.1); MONO % 6.8 % (3.8-10.2); NEUT % 68.9 % (42.8-82.8); PLATELET COUNT 318 10^3/uL (134-434); RBC 5.41 M/mm3 (3.60-5.2); RDW 16.1 % (11.6-15.6); WHITE BLOOD COUNT 14.2 K/mm3 (4.0-10.0)
[2020-10-18 09:31] LABS: CALCIUM 9.3 mg/dL (8.5-10.1)
[2020-10-18 09:32] LABS: BLOOD UREA NITROGEN 21.1 mg/dL (7-18)
[2020-10-18] MEDS ORDERED: PT OWN MED DRAWER 7, Y5N ONE (09:45)
[2020-10-18] MEDS: ENOXAPARIN NA (PORCINE) 40 MG/0.4 ML DISP.SYRIN SQ SCH (09:46)
[2020-10-18] MEDS: FUROSEMIDE 20 MG TABLET (FP) PO SCH (09:46)
[2020-10-18] MEDS: NYSTATIN POWDER 100,000 UNITS/GM - 15 GM TOPICAL POWDER TP SCH (09:47)
[2020-10-18] MEDS: ELVITEG/COB/EMTRI/TENOF (GENVOYA) TABLET (NF) PO SCH (09:47)
[2020-10-18] MEDS: FLUTICASONE/SALMETEROL 100 MCG/50 MCG DISKUS IH SCH (09:52)
[2020-10-18] MEDS ORDERED: predniSONE 20 MG TABLET (UD) PO SCH (11:00)
[2020-10-18] MEDS ORDERED: NYSTATIN POWDER 100,000 UNITS/GM - 15 GM TOPICAL POWDER TP SCH (12:00)
[2020-10-18 14:20] VITALS: BP 135/80; PULSE 89; TEMP 97.8
== END 2020-10-18 18:48 | disposition home or self-care (01) | DRG 202 ==
LOC: JER 15:36 → JERBED 17:20 → J6S 10-15 11:17
PROVIDERS: ADMIT Internal Medicine; ATTEND Internal Medicine
DX: J45.51 Severe persistent asthma with (acute) exacerbation (principal); J96.01 Acute respiratory failure with hypoxia; Z68.44 Body mass index [BMI] 60.0-69.9, adult; E87.1 Hypo-osmolality and hyponatremia; Z21 Asymptomatic human immunodeficiency virus [HIV] infection status; E66.01 Morbid (severe) obesity due to excess calories; E11.9 Type 2 diabetes mellitus without complications; G47.30 Sleep apnea, unspecified; L30.4 Erythema intertrigo; M79.7 Fibromyalgia; D72.829 Elevated white blood cell count, unspecified; E11.65 Type 2 diabetes mellitus with hyperglycemia; K76.0 Fatty (change of) liver, not elsewhere classified; N20.0 Calculus of kidney
CPT/HCPCS: 36415; 71045-TC-FY; 74177-TC; 80048; 80053; 82550; 82803; 82962; 83036; 83735; 84100; 84484; 84703; 85025; 85027; 85610; 86769; 93005; 93010; 94640; 94660; 99291; C9803; J0131; Q9967; U0003; U0005

== ENCOUNTER 2021-01-10 12:16 | Inpatient (IN) | payer OTHER ==
[2021-01-10] MEDS ORDERED: METOCLOPRAMIDE HCL INJECTION 10 MG/2 ML VIAL IVPUSH ONE (13:10)
[2021-01-10] MEDS ORDERED: SODIUM CHLORIDE 0.9% 500 ML INFUS.BAG IV ONE (13:11)
[2021-01-10] MEDS ORDERED: ACETAMINOPHEN 1000 MG/100 ML VIAL (NON FORMULARY) IVPB ONE (13:11)
[2021-01-10] MEDS ORDERED: METOCLOPRAMIDE HCL INJECTION 10 MG/2 ML VIAL ONE (13:45)
[2021-01-10] MEDS ORDERED: ACETAMINOPHEN INJECTION 100 ML IVPB ONE (13:45)
[2021-01-10 14:13] LABS: HEMATOCRIT 40.9 % (32.4-45.2); HEMOGLOBIN 13.4 GM/dL (10.7-15.3); MCH 25.3 pg (25.7-33.7); MCHC 32.9 g/dl (32.0-36.0); MEAN CELL VOLUME 76.8 fl (80-96); MEAN PLT VOLUME 8.2 fl (7.5-11.1); PLATELET COUNT 245 10^3/uL (134-434); RBC 5.32 M/mm3 (3.60-5.2); RDW 15.7 % (11.6-15.6); WHITE BLOOD COUNT 9.4 K/mm3 (4.0-10.0)
[2021-01-10 14:23] LABS: INR 1.22 (0.83-1.09); PROTHROMBIN TIME (PATIENT) 14.7 SEC (9.7-13.0)
[2021-01-10 14:25] LABS: ACTIVATED PTT 31.8 SECONDS (25.2-36.5)
[2021-01-10 14:34] LABS: CHLORIDE 105 mmol/L (98-107); SODIUM 137 mmol/L (136-145)
[2021-01-10 14:36] LABS: CALCIUM 9.1 mg/dL (8.5-10.1)
[2021-01-10 14:37] LABS: ALBUMIN 3.3 g/dl (3.4-5.0); ANION GAP 6 MMOL/L (8-16); BLOOD UREA NITROGEN 7.6 mg/dL (7-18); CO2 27 mmol/L (21-32); GLUCOSE,RANDOM 180 mg/dL (74-106); LIPASE 44 U/L (73-393)
[2021-01-10 14:40] LABS: CREATININE 0.9 mg/dL (0.55-1.3); SGOT/AST 19 U/L (15-37); SGPT/ALT 28 U/L (13-61)
[2021-01-10 14:42] LABS: BILIRUBIN,TOTAL 0.9 mg/dL (0.2-1)
[2021-01-10 14:43] LABS: ALK PHOS 70 U/L (45-117)
[2021-01-10 15:14] LABS: ANISOCYTOSIS 1+; MACROCYTOSIS 0; OVALOCYTE 1+; PLATELET ESTIMATE NORMAL
[2021-01-10 15:42] LABS: EPI CELLS >36 /uL (0-25.1); HYALINE CASTS 5 /uL (0-3.1); PH,URINE 5.5 (5.0-8.0); URINE APPEARANCE CLOUDY; URINE BACTERIA 832 /uL (0-1359); URINE BILIRUBIN 1+ (NEGATIVE); URINE COLOR DK YELLOW; URINE GLUCOSE (UA) NEGATIVE (NEGATIVE); URINE KETONE TRACE (NEGATIVE); URINE LEUK ESTERASE NEGATIVE (NEGATIVE); URINE NITRITE NEGATIVE (NEGATIVE); URINE PROTEIN 1+ (NEGATIVE); URINE RBC 15 /uL (0-23.9); URINE WBC 50 /uL (0-25.8)
[2021-01-10] MEDS ORDERED: VANCOMYCIN 1 GM in D5W (PRE-DOCKED) 1,000 MG/250 ML IVPB ONE (16:46)
[2021-01-10] MEDS ORDERED: CEFTRIAXONE 2 GM/100 ML BAG IVPB ONE (18:31)
[2021-01-10] MEDS ORDERED: VANCOMYCIN 1 GRAM (PRE-DOCKED) 1,000 MG/250 ML BAG IVPB ONE (20:26)
[2021-01-10] MEDS ORDERED: GABAPENTIN 100 MG CAPSULE ONE (23:27)
[2021-01-10] MEDS: GABAPENTIN 100 MG CAPSULE PO SCH (23:28)
[2021-01-11 03:04] VITALS: BMI 63.3
[2021-01-11] MEDS ORDERED: CEFTRIAXONE 2,000 MG in DEXTROSE 5%-WATER - 50 ML IVPB ONE (06:11)
[2021-01-11] MEDS: INSULIN SLIDING SCALE (NOVOLOG) 1 VIAL SQ SCH ×4 (06:15→21:57)
[2021-01-11] MEDS ORDERED: ACETAMINOPHEN 1000 MG/100 ML VIAL (NON FORMULARY) IVPB ONE ×2 (08:07→21:29)
[2021-01-11] MEDS ORDERED: PT OWN MED DRAWER 7, Y5N ONE ×4 (08:23→18:37)
[2021-01-11 08:41] LABS: HEMATOCRIT 37.3 % (32.4-45.2); HEMOGLOBIN 12.3 GM/dL (10.7-15.3); MCH 25.4 pg (25.7-33.7); MCHC 32.9 g/dl (32.0-36.0); MEAN CELL VOLUME 77.3 fl (80-96); MEAN PLT VOLUME 8.1 fl (7.5-11.1); PLATELET COUNT 216 10^3/uL (134-434); RBC 4.82 M/mm3 (3.60-5.2); RDW 15.5 % (11.6-15.6); WHITE BLOOD COUNT 7.7 K/mm3 (4.0-10.0)
[2021-01-11 08:57] LABS: BLOOD UREA NITROGEN 8.6 mg/dL (7-18); CALCIUM 8.5 mg/dL (8.5-10.1)
[2021-01-11 09:00] LABS: CREATININE 0.7 mg/dL (0.55-1.3)
[2021-01-11 09:02] LABS: BILIRUBIN,TOTAL 0.6 mg/dL (0.2-1)
[2021-01-11] MEDS ORDERED: DEXTROSE 5%-WATER 100 ML IVPB ONE (09:22)
[2021-01-11] MEDS: CEFTRIAXONE 2 GM in DEXTROSE 5%-WATER 100 ML IVPB SCH ×2 (09:50→20:45)
[2021-01-11] MEDS: VANCOMYCIN PREMIX 1.5 GM 1,500 MG/300 ML BAG IVPB SCH ×2 (09:50→21:39)
[2021-01-11] MEDS: GABAPENTIN 100 MG CAPSULE PO SCH (09:51)
[2021-01-11] MEDS ORDERED: ENOXAPARIN NA (PORCINE) 40 MG/0.4 ML DISP.SYRIN SQ SCH (10:00)
[2021-01-11] MEDS ORDERED: ELVITEG/COB/EMTRI/TENOF (GENVOYA) TABLET (NF) PO SCH (10:00)
[2021-01-11] MEDS ORDERED: VANCOMYCIN HCL 1,500 MG in DEXTROSE 5%-WATER - 250 ML IVPB SCH (10:15)
[2021-01-11] MEDS ORDERED: INSULIN (NOVOLOG) ASPART 100 UNITS/ML 10ML VIAL ONE (10:58)
[2021-01-11] MEDS: ELVITEG/COB/EMTRI/TENOF (GENVOYA) TABLET (NF) PO SCH (11:31)
[2021-01-11] MEDS ORDERED: ALBUTEROL SO4 HFA INHALER IH SCH (15:45)
[2021-01-11] MEDS ORDERED: ALBUTEROL SO4 HFA INHALER IH PRN (17:34)
[2021-01-11] MEDS: GABAPENTIN 300 MG CAPSULE PO SCH (21:38)
[2021-01-11] MEDS: MONTELUKAST NA 10 MG TABLET PO SCH (21:38)
[2021-01-11] MEDS: BUDESONIDE/FORMETEROL FUMARATE 80/4.5 mcg INHALER IH SCH (21:39)
[2021-01-12] MEDS ORDERED: DEXTROSE 5%-WATER 100 ML IVPB ONE ×3 (01:39→20:58)
[2021-01-12] MEDS ORDERED: ACETAMINOPHEN 1000 MG/100 ML VIAL (NON FORMULARY) IVPB ONE (05:57)
[2021-01-12] MEDS: INSULIN (LEVEMIR) 100 UNITS/ML UNITS SQ SCH (06:42)
[2021-01-12] MEDS: INSULIN SLIDING SCALE (NOVOLOG) 1 VIAL SQ SCH ×4 (06:49→21:27)
[2021-01-12] MEDS ORDERED: PT OWN MED DRAWER 7, Y5N ONE (08:07)
[2021-01-12 08:42] LABS: HEMOGLOBIN 12.6 GM/dL (10.7-15.3); MCH 25.4 pg (25.7-33.7); MCHC 32.4 g/dl (32.0-36.0); MEAN CELL VOLUME 78.5 fl (80-96); MEAN PLT VOLUME 8.4 fl (7.5-11.1); PLATELET COUNT 269 10^3/uL (134-434); RBC 4.96 M/mm3 (3.60-5.2); RDW 15.8 % (11.6-15.6); WHITE BLOOD COUNT 7.3 K/mm3 (4.0-10.0)
[2021-01-12 09:06] LABS: CALCIUM 8.9 mg/dL (8.5-10.1)
[2021-01-12 09:07] LABS: BLOOD UREA NITROGEN 9.8 mg/dL (7-18)
[2021-01-12 09:09] LABS: CREATININE 0.8 mg/dL (0.55-1.3)
[2021-01-12] MEDS ORDERED: INSULIN (LEVEMIR) 100 UNITS/ML UNITS SQ SCH (10:00)
[2021-01-12] MEDS: ELVITEG/COB/EMTRI/TENOF (GENVOYA) TABLET (NF) PO SCH (10:25)
[2021-01-12] MEDS: CEFTRIAXONE 2 GM in DEXTROSE 5%-WATER 100 ML IVPB SCH ×2 (10:25→21:42)
[2021-01-12] MEDS: BUDESONIDE/FORMETEROL FUMARATE 80/4.5 mcg INHALER IH SCH ×2 (10:26→21:41)
[2021-01-12] MEDS: GABAPENTIN 300 MG CAPSULE PO SCH ×2 (10:26→21:20)
[2021-01-12 17:30] LABS: CSF COLOR COLORLESS (COLORLESS)
[2021-01-12 17:31] LABS: CSF APPEARANCE CLEAR (CLEAR); CSF WBC 5 mm3 (0-5)
[2021-01-12 17:53] LABS: BF GLUCOSE (CSF ONLY) 99 mg/dL (40-70)
[2021-01-12] MEDS: ACETAMINOPHEN/CAFFEINE/BUTALBITAL 1 TAB PO PRN (21:20)
[2021-01-12] MEDS: MONTELUKAST NA 10 MG TABLET PO SCH (21:20)
[2021-01-13] MEDS: ACETAMINOPHEN/CAFFEINE/BUTALBITAL 1 TAB PO PRN ×2 (05:56→21:55)
[2021-01-13] MEDS: INSULIN SLIDING SCALE (NOVOLOG) 1 VIAL SQ SCH ×4 (06:00→21:59)
[2021-01-13] MEDS: INSULIN (LEVEMIR) 100 UNITS/ML UNITS SQ SCH (06:00)
[2021-01-13] MEDS ORDERED: PT OWN MED DRAWER 7, Y5N ONE (08:38)
[2021-01-13] MEDS: ELVITEG/COB/EMTRI/TENOF (GENVOYA) TABLET (NF) PO SCH (08:40)
[2021-01-13] MEDS ORDERED: DEXTROSE 5%-WATER 100 ML IVPB ONE ×2 (10:22→21:10)
[2021-01-13] MEDS: GABAPENTIN 300 MG CAPSULE PO SCH ×2 (10:26→21:54)
[2021-01-13] MEDS: CEFTRIAXONE 2 GM in DEXTROSE 5%-WATER 100 ML IVPB SCH ×2 (10:26→21:55)
[2021-01-13] MEDS: BUDESONIDE/FORMETEROL FUMARATE 80/4.5 mcg INHALER IH SCH ×2 (10:27→21:56)
[2021-01-13 10:30] LABS: HEMATOCRIT 38.2 % (32.4-45.2); HEMOGLOBIN 12.2 GM/dL (10.7-15.3); MCH 25.2 pg (25.7-33.7); MEAN CELL VOLUME 78.7 fl (80-96); MEAN PLT VOLUME 8.4 fl (7.5-11.1); PLATELET COUNT 252 10^3/uL (134-434); RBC 4.85 M/mm3 (3.60-5.2); WHITE BLOOD COUNT 7.4 K/mm3 (4.0-10.0)
[2021-01-13 10:50] LABS: CALCIUM 9.1 mg/dL (8.5-10.1)
[2021-01-13 10:56] LABS: ALBUMIN 3.2 g/dl (3.4-5.0); BLOOD UREA NITROGEN 10.6 mg/dL (7-18)
[2021-01-13 10:59] LABS: BILIRUBIN,TOTAL 0.4 mg/dL (0.2-1); CREATININE 0.8 mg/dL (0.55-1.3); TOT PROT 7.5 g/dl (6.4-8.2)
[2021-01-13] MEDS: MONTELUKAST NA 10 MG TABLET PO SCH (21:54)
[2021-01-14] MEDS: ACETAMINOPHEN/CAFFEINE/BUTALBITAL 1 TAB PO PRN (05:45)
[2021-01-14] MEDS: INSULIN (LEVEMIR) 100 UNITS/ML UNITS SQ SCH (06:31)
[2021-01-14] MEDS: INSULIN SLIDING SCALE (NOVOLOG) 1 VIAL SQ SCH ×3 (06:32→17:38)
[2021-01-14 09:37] LABS: BLOOD UREA NITROGEN 13.8 mg/dL (7-18); CALCIUM 8.7 mg/dL (8.5-10.1)
[2021-01-14 09:41] LABS: CREATININE 0.8 mg/dL (0.55-1.3); HEMATOCRIT 38.1 % (32.4-45.2); HEMOGLOBIN 12.2 GM/dL (10.7-15.3); MCH 24.9 pg (25.7-33.7); MCHC 32.1 g/dl (32.0-36.0); MEAN CELL VOLUME 77.5 fl (80-96); MEAN PLT VOLUME 7.8 fl (7.5-11.1); PLATELET COUNT 263 10^3/uL (134-434); RBC 4.91 M/mm3 (3.60-5.2); RDW 15.7 % (11.6-15.6); WHITE BLOOD COUNT 7.9 K/mm3 (4.0-10.0)
[2021-01-14] MEDS ORDERED: ENOXAPARIN NA (PORCINE) 40 MG/0.4 ML DISP.SYRIN SQ SCH (10:00)
[2021-01-14] MEDS ORDERED: PT OWN MED DRAWER 7, Y5N ONE (10:52)
[2021-01-14] MEDS ORDERED: DEXTROSE 5%-WATER 100 ML IVPB ONE (10:52)
[2021-01-14] MEDS: BUDESONIDE/FORMETEROL FUMARATE 80/4.5 mcg INHALER IH SCH (10:59)
[2021-01-14] MEDS: GABAPENTIN 300 MG CAPSULE PO SCH (10:59)
[2021-01-14] MEDS: CEFTRIAXONE 2 GM in DEXTROSE 5%-WATER 100 ML IVPB SCH (10:59)
[2021-01-14] MEDS: ELVITEG/COB/EMTRI/TENOF (GENVOYA) TABLET (NF) PO SCH (13:37)
[2021-01-14 15:51] VITALS: BP 131/84; PULSE 74; TEMP 98.1
== END 2021-01-14 18:27 | disposition home or self-care (01) | DRG 103 ==
LOC: JER 12:16 → INTOOBSV 16:50 → JERBED 16:50 → UNDOADMOB 16:50 → J8W 01-11 02:32 → JERBED 01-11 02:32 → J8W 01-11 12:45 → OBSVTOIN 01-13 11:11
PROVIDERS: ADMIT Internal Medicine; ATTEND Internal Medicine
DX: G43.109 Migraine with aura, not intractable, without status migrainosus (principal); Z68.44 Body mass index [BMI] 60.0-69.9, adult; E11.9 Type 2 diabetes mellitus without complications; G47.33 Obstructive sleep apnea (adult) (pediatric); M79.7 Fibromyalgia; E66.01 Morbid (severe) obesity due to excess calories; Z99.81 Dependence on supplemental oxygen; Z21 Asymptomatic human immunodeficiency virus [HIV] infection status; G43.909 Migraine, unspecified, not intractable, without status migrainosus; D64.9 Anemia, unspecified; M54.5 Low back pain; R10.12 Left upper quadrant pain; Z79.4 Long term (current) use of insulin; R82.71 Bacteriuria; I44.7 Left bundle-branch block, unspecified
CPT/HCPCS: 36415; 62272; 70450-TC; 71046-TC-FY; 74177-TC; 77002-TC-FY; 80048; 80053; 81003; 82550; 82945; 82962; 83690; 83735; 84100; 84157; 84484; 84703; 85025; 85027; 85610; 85730; 86359; 86360; 86694; 86735; 86765; 86787; 86788; 86789; 87040; 87070; 87086; 87205; 93005; 93010; 94010; 99285-25; C9803; G0378; J0131; Q9967; U0003; U0005

== ENCOUNTER 2021-07-21 14:09 | Emergency (ER) | payer OTHER ==
[2021-07-21 14:34] VITALS: BP 118/56; PULSE 94; TEMP 98; BMI 61.2
[2021-07-21] MEDS ORDERED: ACETAMINOPHEN 325 MG TABLET (FP) PO ONE (16:42)
[2021-07-21] MEDS ORDERED: KETOROLAC TROMETHAMINE 30 MG/1 ML VIAL IVPUSH ONE (16:42)
[2021-07-21] MEDS ORDERED: ACETAMINOPHEN 325 MG TABLET (FP) ONE (16:48)
[2021-07-21] MEDS ORDERED: KETOROLAC TROMETHAMINE 30 MG/1 ML VIAL ONE (16:48)
[2021-07-21 17:03] LABS: EOS % 1.3 % (0-4.5); HEMATOCRIT 41.2 % (32.4-45.2); HEMOGLOBIN 12.9 GM/dL (10.7-15.3); LYMPH % 26.1 % (8-40); MCH 25.1 pg (25.7-33.7); MCHC 31.4 g/dl (32.0-36.0); MEAN CELL VOLUME 79.9 fl (80-96); MEAN PLT VOLUME 8.7 fl (7.5-11.1); MONO % 5.3 % (3.8-10.2); NEUT % 66.3 % (42.8-82.8); PLATELET COUNT 349 10^3/uL (134-434); RBC 5.16 M/mm3 (3.60-5.2); RDW 17.7 % (11.6-15.6); WHITE BLOOD COUNT 9.7 K/mm3 (4.0-10.0)
[2021-07-21 17:27] LABS: CALCIUM 9.2 mg/dL (8.5-10.1)
[2021-07-21 17:28] LABS: ALBUMIN 3.5 g/dl (3.4-5.0); BLOOD UREA NITROGEN 9.3 mg/dL (7-18)
[2021-07-21 17:31] LABS: CREATININE 0.9 mg/dL (0.55-1.3)
[2021-07-21 17:32] LABS: BILIRUBIN,TOTAL 0.4 mg/dL (0.2-1); TOT PROT 7.6 g/dl (6.4-8.2)
[2021-07-21 17:35] LABS: PH,URINE 6.5 (5.0-8.0); URINE APPEARANCE CLEAR; URINE BILIRUBIN NEGATIVE (NEGATIVE); URINE COLOR YELLOW; URINE GLUCOSE (UA) NEGATIVE (NEGATIVE); URINE KETONE NEGATIVE (NEGATIVE); URINE LEUK ESTERASE NEGATIVE (NEGATIVE); URINE NITRITE NEGATIVE (NEGATIVE); URINE PROTEIN NEGATIVE (NEGATIVE)
== END 2021-07-22 | disposition home or self-care (01) ==
LOC: JER 14:09
PROC: 3E0333Z Introduction of Anti-inflammatory into Peripheral Vein, Percutaneous Approach (ICD-10-PCS; principal; 2021-07-21)
DX: R10.9 Unspecified abdominal pain (principal)
CPT/HCPCS: 36415; 71046-TC-FY; 72131-TC; 74176-TC; 80053; 81003; 84484; 84703; 85025; 93005; 93010; 99285-25

== ENCOUNTER 2021-12-17 15:24 | Observation (INO) | payer OTHER ==
[2021-12-17] MEDS ORDERED: SODIUM CHLORIDE 0.9% 500 ML INFUS.BAG IV ONE (15:34)
[2021-12-17 16:11] VITALS: BMI 60.3
[2021-12-17 16:33] LABS: EOS % 1.4 % (0-4.5); HEMATOCRIT 42.2 % (32.4-45.2); HEMOGLOBIN 13.5 GM/dL (10.7-15.3); LYMPH % 20.6 % (8-40); MCH 25.4 pg (25.7-33.7); MEAN CELL VOLUME 79.4 fl (80-96); MONO % 8.1 % (3.8-10.2); NEUT % 68.9 % (42.8-82.8); PLATELET COUNT 318 10^3/uL (134-434); RBC 5.32 M/mm3 (3.60-5.2); RDW 15.7 % (11.6-15.6); WHITE BLOOD COUNT 13.2 K/mm3 (4.0-10.0)
[2021-12-17 16:40] LABS: INR 1.22 (0.83-1.09); PROTHROMBIN TIME (PATIENT) 14.1 SEC (9.7-13.0)
[2021-12-17 16:42] LABS: ACTIVATED PTT 30.5 SECONDS (25.2-36.5)
[2021-12-17 16:51] LABS: ALBUMIN 3.4 g/dl (3.4-5.0); BLOOD UREA NITROGEN 15.8 mg/dL (7-18); MAGNESIUM 2.1 mg/dL (1.8-2.4)
[2021-12-17 16:54] LABS: CREATININE 1.5 mg/dL (0.55-1.3)
[2021-12-17 16:56] LABS: BILIRUBIN,TOTAL 0.6 mg/dL (0.2-1); TOT PROT 7.4 g/dl (6.4-8.2)
[2021-12-17] MEDS ORDERED: ACETAMINOPHEN 1000 MG/100 ML BAG IVPB ONE (16:58)
[2021-12-17] MEDS ORDERED: METOCLOPRAMIDE HCL INJECTION 10 MG/2 ML VIAL IVPUSH ONE (16:58)
[2021-12-17] MEDS ORDERED: METOCLOPRAMIDE HCL INJECTION 10 MG/2 ML VIAL ONE (17:11)
[2021-12-17] MEDS ORDERED: ACETAMINOPHEN INJECTION 100 ML IVPB ONE (17:11)
[2021-12-18] MEDS ORDERED: ACETAMINOPHEN 325 MG TABLET (FP) ONE (01:43)
[2021-12-18] MEDS: ACETAMINOPHEN 500 MG TABLET (FP) PO PRN ×3 (01:46→21:04)
[2021-12-18 07:33] LABS: CREATININE 0.8 mg/dL (0.55-1.3)
[2021-12-18] MEDS ORDERED: ACETAMINOPHEN 500 MG TABLET (FP) ONE ×2 (07:48→20:45)
[2021-12-18 08:45] LABS: URINE APPEARANCE CLEAR; URINE BILIRUBIN NEGATIVE (NEGATIVE); URINE COLOR YELLOW; URINE GLUCOSE (UA) 3+ (NEGATIVE); URINE KETONE NEGATIVE (NEGATIVE); URINE LEUK ESTERASE NEGATIVE (NEGATIVE); URINE NITRITE NEGATIVE (NEGATIVE); URINE PROTEIN NEGATIVE (NEGATIVE); URINE UROBILINOGEN 0.2 mg/dL (0.2-1.0)
[2021-12-18 09:27] LABS: BASO % 0.9 % (0-2.0); EOS % 1.6 % (0-4.5); HEMATOCRIT 42.2 % (32.4-45.2); HEMOGLOBIN 13.5 GM/dL (10.7-15.3); LYMPH % 25.9 % (8-40); MCH 25.4 pg (25.7-33.7); MEAN CELL VOLUME 79.4 fl (80-96); MEAN PLT VOLUME 8.2 fl (7.5-11.1); MONO % 6.8 % (3.8-10.2); NEUT % 64.8 % (42.8-82.8); PLATELET COUNT 288 10^3/uL (134-434); RBC 5.31 M/mm3 (3.60-5.2); RDW 15.4 % (11.6-15.6); WHITE BLOOD COUNT 9.6 K/mm3 (4.0-10.0)
[2021-12-18 09:38] LABS: CALCIUM 8.8 mg/dL (8.5-10.1)
[2021-12-18 09:39] LABS: ALBUMIN 3.4 g/dl (3.4-5.0); BLOOD UREA NITROGEN 18.1 mg/dL (7-18); MAGNESIUM 2.3 mg/dL (1.8-2.4)
[2021-12-18 09:44] LABS: BILIRUBIN,TOTAL 0.4 mg/dL (0.2-1); TOT PROT 6.8 g/dl (6.4-8.2)
[2021-12-18] MEDS ORDERED: ALBUTEROL SO4 HFA INHALER IH PRN (10:11)
[2021-12-18] MEDS ORDERED: SODIUM CHLORIDE 1,000 ML IV SCH (10:15)
[2021-12-18] MEDS: INSULIN SLIDING SCALE (NOVOLOG) 1 VIAL SQ SCH ×2 (11:45→17:31)
[2021-12-18 17:32] VITALS: TEMP 97.6
[2021-12-19] MEDS: INSULIN SLIDING SCALE (NOVOLOG) 1 VIAL SQ SCH ×2 (01:20→08:54)
[2021-12-19 08:52] LABS: EOS % 1.7 % (0-4.5); HEMATOCRIT 41.3 % (32.4-45.2); HEMOGLOBIN 13.4 GM/dL (10.7-15.3); LYMPH % 25.3 % (8-40); MCH 25.4 pg (25.7-33.7); MCHC 32.3 g/dl (32.0-36.0); MEAN CELL VOLUME 78.7 fl (80-96); MEAN PLT VOLUME 7.8 fl (7.5-11.1); MONO % 6.5 % (3.8-10.2); NEUT % 65.5 % (42.8-82.8); PLATELET COUNT 302 10^3/uL (134-434); RBC 5.25 M/mm3 (3.60-5.2); RDW 15.7 % (11.6-15.6); WHITE BLOOD COUNT 9.6 K/mm3 (4.0-10.0)
[2021-12-19 08:55] VITALS: RESP 16
[2021-12-19 09:14] LABS: CALCIUM 8.9 mg/dL (8.5-10.1)
[2021-12-19 09:15] LABS: ALBUMIN 3.5 g/dl (3.4-5.0); BLOOD UREA NITROGEN 12.9 mg/dL (7-18)
[2021-12-19 09:16] LABS: BILIRUBIN,TOTAL 0.5 mg/dL (0.2-1)
[2021-12-19 09:17] LABS: TOT PROT 6.9 g/dl (6.4-8.2)
[2021-12-19 09:19] LABS: CREATININE 0.6 mg/dL (0.55-1.3)
[2021-12-19] MEDS ORDERED: FAMOTIDINE 20 MG TABLET PO SCH (10:00)
[2021-12-19 10:20] VITALS: BP 128/60; PULSE 70
== END 2021-12-19 10:10 | disposition home or self-care (01) ==
LOC: JER 15:24 → JERBED 16:06
PROVIDERS: ADMIT Hospitalist; ATTEND Nurse Practitioner Family
PROC: 3E033NZ Introduction of Analgesics, Hypnotics, Sedatives into Peripheral Vein, Percutaneous Approach (ICD-10-PCS; principal; 2021-12-17)
PROC: 3E013VG Introduction of Insulin into Subcutaneous Tissue, Percutaneous Approach (ICD-10-PCS; 2021-12-17)
PROC: 3E033GC Introduction of Other Therapeutic Substance into Peripheral Vein, Percutaneous Approach (ICD-10-PCS; 2021-12-17)
PROC: 3E0337Z Introduction of Electrolytic and Water Balance Substance into Peripheral Vein, Percutaneous Approach (ICD-10-PCS; 2021-12-17)
DX: E86.0 Dehydration (principal); X30.XXXA Exposure to excessive natural heat, initial encounter; Y93.89 Activity, other specified; Y92.89 Other specified places as the place of occurrence of the external cause; E11.9 Type 2 diabetes mellitus without complications; D64.9 Anemia, unspecified; N17.9 Acute kidney failure, unspecified; M79.7 Fibromyalgia; G43.909 Migraine, unspecified, not intractable, without status migrainosus; B20 Human immunodeficiency virus [HIV] disease
CPT/HCPCS: 0241U-QW; 36415; 70450-TC; 70460-TC; 80053; 80061; 81003; 82550; 82570; 82962; 83036; 83735; 84300; 84484; 85025; 85610; 85730; 87086; 93005; 93010; 96361; 96372; 96374; 96375; 99291; G0378

== ENCOUNTER 2022-01-19 15:38 | Emergency (ER) | payer OTHER ==
[2022-01-19 15:43] VITALS: TEMP 97.2; BMI 60.3
[2022-01-19] MEDS ORDERED: SODIUM CHLORIDE 0.9% 500 ML INFUS.BAG IV ONE (16:27)
[2022-01-19] MEDS ORDERED: ACETAMINOPHEN 1000 MG/100 ML BAG IVPB ONE (16:27)
[2022-01-19] MEDS ORDERED: ACETAMINOPHEN INJECTION 100 ML IVPB ONE (16:53)
[2022-01-19 17:38] LABS: BASO % 1.1 % (0-2.0); EOS % 1.2 % (0-4.5); HEMATOCRIT 43.9 % (32.4-45.2); HEMOGLOBIN 13.7 GM/dL (10.7-15.3); LYMPH % 20.4 % (8-40); MCH 24.7 pg (25.7-33.7); MCHC 31.1 g/dl (32.0-36.0); MEAN CELL VOLUME 79.7 fl (80-96); MEAN PLT VOLUME 8.1 fl (7.5-11.1); MONO % 5.9 % (3.8-10.2); NEUT % 71.4 % (42.8-82.8); PLATELET COUNT 320 10^3/uL (134-434); RBC 5.52 M/mm3 (3.60-5.2); RDW 15.8 % (11.6-15.6); WHITE BLOOD COUNT 12.4 K/mm3 (4.0-10.0)
[2022-01-19 17:58] LABS: CHLORIDE 108 mmol/L (98-107); SODIUM 137 mmol/L (136-145)
[2022-01-19 18:00] LABS: ALBUMIN 3.3 g/dl (3.4-5.0); LIPASE 28 U/L (73-393)
[2022-01-19 18:01] LABS: BLOOD UREA NITROGEN 16.1 mg/dL (7-18); CO2 25 mmol/L (21-32); GLUCOSE,RANDOM 123 mg/dL (74-106)
[2022-01-19 18:03] LABS: SGPT/ALT 29 U/L (13-61)
[2022-01-19 18:04] LABS: SGOT/AST 64 U/L (15-37)
[2022-01-19 18:05] LABS: BILIRUBIN,TOTAL 0.6 mg/dL (0.2-1); TOT PROT 7.5 g/dl (6.4-8.2)
[2022-01-19 18:06] LABS: ALK PHOS 80 U/L (45-117)
[2022-01-19 18:16] LABS: ANION GAP 5 MMOL/L (8-16)
[2022-01-19 18:36] LABS: URINE APPEARANCE CLEAR; URINE BILIRUBIN NEGATIVE (NEGATIVE); URINE COLOR YELLOW; URINE GLUCOSE (UA) 3+ (NEGATIVE); URINE KETONE NEGATIVE (NEGATIVE); URINE LEUK ESTERASE NEGATIVE (NEGATIVE); URINE NITRITE NEGATIVE (NEGATIVE); URINE PROTEIN NEGATIVE (NEGATIVE); URINE UROBILINOGEN 0.2 mg/dL (0.2-1.0)
[2022-01-19 18:39] LABS: HCG,QUALITATIVE URINE Negative
[2022-01-19 21:07] LABS: CALCIUM 8.8 mg/dL (8.5-10.1)
[2022-01-19 21:11] LABS: CREATININE 0.9 mg/dL (0.55-1.3)
[2022-01-19 23:39] VITALS: BP 121/76; PULSE 78; RESP 20
== END 2022-01-19 23:37 | disposition home or self-care (01) ==
LOC: JER 15:38
PROC: 3E033NZ Introduction of Analgesics, Hypnotics, Sedatives into Peripheral Vein, Percutaneous Approach (ICD-10-PCS; principal; 2022-01-19)
DX: R10.9 Unspecified abdominal pain (principal)
CPT/HCPCS: 36415; 74177-TC; 80048; 80053; 81003; 83690; 84703; 85025; 87086; 99285-25; Q9967

== ENCOUNTER 2022-03-17 14:12 | Emergency (ER) | payer OTHER ==
[2022-03-17 14:41] VITALS: TEMP 97.8; BMI 60.3
[2022-03-17] MEDS ORDERED: ACETAMINOPHEN 1000 MG/100 ML BAG IVPB ONE (15:24)
[2022-03-17] MEDS ORDERED: FAMOTIDINE 20 MG/50 ML IVPB 20 MG/50 ML MG IVPB ONE ×2 (15:24→16:37)
[2022-03-17] MEDS ORDERED: LACTATED RINGERS SOLUTION 1000 ML INFUS.BAG IV ONE (15:24)
[2022-03-17] MEDS ORDERED: ONDANSETRON 4 MG/2 ML VIAL IVPUSH ONE (15:24)
[2022-03-17] MEDS ORDERED: ONDANSETRON 4 MG/2 ML VIAL ONE (16:37)
[2022-03-17] MEDS ORDERED: ACETAMINOPHEN INJECTION 100 ML IVPB ONE (16:37)
[2022-03-17 17:43] LABS: BASO % 0.4 % (0-2.0); EOS % 0.7 % (0-4.5); HEMATOCRIT 43.3 % (32.4-45.2); HEMOGLOBIN 13.8 GM/dL (10.7-15.3); LYMPH % 22.2 % (8-40); MCHC 31.9 g/dl (32.0-36.0); MEAN CELL VOLUME 78.6 fl (80-96); MEAN PLT VOLUME 7.9 fl (7.5-11.1); MONO % 5.9 % (3.8-10.2); NEUT % 70.8 % (42.8-82.8); PLATELET COUNT 331 10^3/uL (134-434); RBC 5.51 M/mm3 (3.60-5.2); RDW 17.1 % (11.6-15.6); WHITE BLOOD COUNT 11.7 K/mm3 (4.0-10.0)
[2022-03-17 17:50] LABS: INR 1.25 (0.83-1.09); PROTHROMBIN TIME (PATIENT) 14.4 SEC (9.7-13.0)
[2022-03-17 17:53] LABS: ACTIVATED PTT 28.5 SECONDS (25.2-36.5)
[2022-03-17 18:07] LABS: CHLORIDE 104 mmol/L (98-107); SODIUM 133 mmol/L (136-145)
[2022-03-17 18:10] LABS: CALCIUM 8.9 mg/dL (8.5-10.1)
[2022-03-17 18:11] LABS: ALBUMIN 3.4 g/dl (3.4-5.0); BLOOD UREA NITROGEN 10.8 mg/dL (7-18); CO2 26 mmol/L (21-32); GLUCOSE,RANDOM 81 mg/dL (74-106); MAGNESIUM 2.2 mg/dL (1.8-2.4)
[2022-03-17 18:12] LABS: PH,URINE 5.5 (5.0-8.0); URINE APPEARANCE CLEAR; URINE BILIRUBIN NEGATIVE (NEGATIVE); URINE COLOR YELLOW; URINE GLUCOSE (UA) 3+ (NEGATIVE); URINE KETONE TRACE (NEGATIVE); URINE LEUK ESTERASE NEGATIVE (NEGATIVE); URINE NITRITE NEGATIVE (NEGATIVE); URINE PROTEIN NEGATIVE (NEGATIVE); URINE UROBILINOGEN 0.2 mg/dL (0.2-1.0)
[2022-03-17 18:14] LABS: CREATININE 0.9 mg/dL (0.55-1.3)
[2022-03-17 18:14] LABS: HCG,QUALITATIVE URINE Negative
[2022-03-17 18:15] LABS: BILIRUBIN,TOTAL 0.7 mg/dL (0.2-1); TOT PROT 8.1 g/dl (6.4-8.2)
[2022-03-17 18:16] LABS: ALK PHOS 81 U/L (45-117)
[2022-03-17 18:34] LABS: ANION GAP 3 MMOL/L (8-16); SGOT/AST 121 U/L (15-37); SGPT/ALT 28 U/L (13-61)
[2022-03-18 01:03] VITALS: BP 130/82; PULSE 80; RESP 18
== END 2022-03-18 01:08 | disposition home or self-care (01) ==
LOC: JER 14:12
PROC: 3E033NZ Introduction of Analgesics, Hypnotics, Sedatives into Peripheral Vein, Percutaneous Approach (ICD-10-PCS; principal; 2022-03-17)
PROC: 3E033GC Introduction of Other Therapeutic Substance into Peripheral Vein, Percutaneous Approach (ICD-10-PCS; 2022-03-17)
PROC: 3E033GC Introduction of Other Therapeutic Substance into Peripheral Vein, Percutaneous Approach (ICD-10-PCS; 2022-03-17)
DX: R10.9 Unspecified abdominal pain (principal)
CPT/HCPCS: 0241U-QW; 36415; 71046-TC-FY; 76705-TC; 80053; 81003; 83690; 83735; 84132; 84484; 84703; 85025; 85610; 85730; 87086; 93005; 93010; 99284-25

== ENCOUNTER 2022-06-04 14:51 | Emergency (ER) | payer OTHER ==
[2022-06-04 14:54] VITALS: RESP 18; TEMP 97.9; BMI 58.5
[2022-06-04 16:13] VITALS: BP 101/88; PULSE 74
[2022-06-04] MEDS ORDERED: ACETAMINOPHEN 1000 MG/100 ML BAG IVPB ONE (16:13)
[2022-06-04 16:15] LABS: BASO % 0.8 % (0-2.0); EOS % 1.2 % (0-4.5); HEMATOCRIT 43.9 % (32.4-45.2); LYMPH % 25.4 % (8-40); MCH 25.2 pg (25.7-33.7); MCHC 31.9 g/dl (32.0-36.0); MEAN CELL VOLUME 79.1 fl (80-96); MEAN PLT VOLUME 7.6 fl (7.5-11.1); MONO % 7.5 % (3.8-10.2); NEUT % 65.1 % (42.8-82.8); PLATELET COUNT 338 10^3/uL (134-434); RBC 5.55 M/mm3 (3.60-5.2); RDW 17.1 % (11.6-15.6); WHITE BLOOD COUNT 10.8 K/mm3 (4.0-10.0)
[2022-06-04] MEDS ORDERED: ACETAMINOPHEN INJECTION 100 ML IVPB ONE (16:16)
[2022-06-04 16:28] LABS: INR 1.26 (0.83-1.09); PROTHROMBIN TIME (PATIENT) 14.6 SEC (9.7-13.0)
[2022-06-04 16:29] LABS: CHLORIDE 106 mmol/L (98-107); SODIUM 140 mmol/L (136-145)
[2022-06-04 16:31] LABS: ACTIVATED PTT 31.5 SECONDS (25.2-36.5); ANION GAP 11 MMOL/L (8-16); CO2 24 mmol/L (21-32); GLUCOSE,RANDOM 119 mg/dL (74-106); LIPASE 42 U/L (73-393); MAGNESIUM 2.1 mg/dL (1.8-2.4)
[2022-06-04 16:32] LABS: ALBUMIN 3.4 g/dl (3.4-5.0)
[2022-06-04 16:34] LABS: CREATININE 0.8 mg/dL (0.55-1.3); SGOT/AST 19 U/L (15-37); SGPT/ALT 22 U/L (13-61)
[2022-06-04 16:36] LABS: BILIRUBIN,TOTAL 0.4 mg/dL (0.2-1); TOT PROT 7.3 g/dl (6.4-8.2)
[2022-06-04 16:37] LABS: ALK PHOS 82 U/L (45-117)
[2022-06-04] MEDS ORDERED: ONDANSETRON 4 MG/2 ML VIAL IVPUSH ONE (18:36)
[2022-06-04] MEDS ORDERED: ONDANSETRON 4 MG/2 ML VIAL ONE (18:41)
[2022-06-04 19:55] LABS: URINE APPEARANCE CLEAR; URINE BILIRUBIN NEGATIVE (NEGATIVE); URINE COLOR YELLOW; URINE GLUCOSE (UA) >=1000 (NEGATIVE)
[2022-06-04 19:56] LABS: PH,URINE 5.5 (5.0-8.0); URINE KETONE NEGATIVE (NEGATIVE); URINE LEUK ESTERASE NEGATIVE (NEGATIVE); URINE NITRITE NEGATIVE (NEGATIVE); URINE PROTEIN NEGATIVE (NEGATIVE)
== END 2022-06-04 20:38 | disposition home or self-care (01) ==
LOC: JER 14:51
PROC: 3E0333Z Introduction of Anti-inflammatory into Peripheral Vein, Percutaneous Approach (ICD-10-PCS; principal; 2022-06-04)
PROC: 3E033GC Introduction of Other Therapeutic Substance into Peripheral Vein, Percutaneous Approach (ICD-10-PCS; 2022-06-04)
DX: K42.9 Umbilical hernia without obstruction or gangrene (principal); G89.29 Other chronic pain; Z21 Asymptomatic human immunodeficiency virus [HIV] infection status
CPT/HCPCS: 0241U-QW; 36415; 71045-TC-FY; 72128-TC; 72131-TC; 74177-TC; 80053; 81003; 82272; 83690; 83735; 84484; 85025; 85610; 85730; 87086; 93005; 93010; 99285-25; Q9967

== ENCOUNTER 2022-08-11 06:00 | Day surgery (SDC) | payer OTHER ==
[2022-08-09 17:47] VITALS: BMI 59.1
[~2022-08-11 06:00] MED LIST: BUPIVACAINE HCL/PF 0.5% (5MG/ML) 10 ML VIAL IJ ONE; IOHEXOL 180 MG/1 ML ML IJ ONE; LIDOCAINE 1% P/F 10 MG/ML VIAL INF ONE; TRIAMCINOLONE ACET 40MG/1ML VIAL IM ONE
[2022-08-11] MEDS ORDERED: ACETAMINOPHEN 500 MG TABLET (FP) PO PRN (09:44)
[2022-08-11] MEDS ORDERED: IOHEXOL 180 MG/1 ML ML IJ ONE (11:38)
[2022-08-11] MEDS ORDERED: LIDOCAINE 1% P/F 10 MG/ML VIAL INF ONE ×2 (11:39)
[2022-08-11] MEDS ORDERED: BUPIVACAINE HCL/PF 0.5% (5MG/ML) 10 ML VIAL IJ ONE ×2 (11:39)
[2022-08-11] MEDS ORDERED: TRIAMCINOLONE ACET 40MG/1ML VIAL IM ONE (11:41)
[2022-08-11 12:04] VITALS: RESP 18
[2022-08-11 12:44] VITALS: BP 121/71; PULSE 72; TEMP 97.8
== END 2022-08-11 12:44 | disposition home or self-care (01) ==
LOC: JASU-SURG 06:00
PROVIDERS: ATTEND Pain Medicine Pain Medicine
PROC: 3E0U3BZ Introduction of Anesthetic Agent into Joints, Percutaneous Approach (ICD-10-PCS; 2022-08-11)
PROC: 3E0U33Z Introduction of Anti-inflammatory into Joints, Percutaneous Approach (ICD-10-PCS; principal; 2022-08-11 11:26)
DX: M53.3 Sacrococcygeal disorders, not elsewhere classified (principal)
CPT/HCPCS: 76000-TC-FY; 81025; 82962

== ENCOUNTER 2022-10-12 11:35 | Inpatient (IN) | payer OTHER ==
[2022-10-12 11:56] VITALS: BMI 60.9
[2022-10-12] MEDS ORDERED: FAMOTIDINE 20 MG/50 ML IVPB 20 MG/50 ML MG IVPB ONE ×2 (12:33→13:00)
[2022-10-12] MEDS ORDERED: ACETAMINOPHEN 1000 MG/100 ML BAG IVPB ONE (12:33)
[2022-10-12] MEDS ORDERED: MAG HYDROX/AL HYDROX/SIMETH -MYLANTA- ORAL SUSPENSION PO ONE (12:33)
[2022-10-12] MEDS ORDERED: ONDANSETRON 4 MG/2 ML VIAL IVPUSH ONE (12:33)
[2022-10-12] MEDS ORDERED: ACETAMINOPHEN INJECTION 100 ML IVPB ONE (12:59)
[2022-10-12] MEDS ORDERED: MAG HYDROX/AL HYDROX/SIMETH 30 ML UNIT-DOSE CUP ONE (13:00)
[2022-10-12] MEDS ORDERED: ONDANSETRON 4 MG/2 ML VIAL ONE (13:00)
[2022-10-12 13:31] LABS: BASO % 0.7 % (0-2.0); EOS % 1.2 % (0-4.5); HEMATOCRIT 43.6 % (32.4-45.2); HEMOGLOBIN 13.6 GM/dL (10.7-15.3); MCH 25.9 pg (25.7-33.7); MCHC 31.2 g/dl (32.0-36.0); MEAN CELL VOLUME 83.1 fl (80-96); MEAN PLT VOLUME 8.4 fl (7.5-11.1); MONO % 6.9 % (3.8-10.2); NEUT % 68.2 % (42.8-82.8); PLATELET COUNT 320 10^3/uL (134-434); RBC 5.25 M/mm3 (3.60-5.2); RDW 15.9 % (11.6-15.6); WHITE BLOOD COUNT 10.2 K/mm3 (4.0-10.0)
[2022-10-12 13:32] LABS: URINE APPEARANCE CLEAR; URINE BILIRUBIN NEGATIVE (NEGATIVE); URINE COLOR YELLOW; URINE GLUCOSE (UA) TRACE (NEGATIVE); URINE KETONE NEGATIVE (NEGATIVE); URINE LEUK ESTERASE NEGATIVE (NEGATIVE); URINE NITRITE NEGATIVE (NEGATIVE); URINE PROTEIN NEGATIVE (NEGATIVE); URINE UROBILINOGEN 0.2 mg/dL (0.2-1.0)
[2022-10-12 13:37] LABS: INR 1.25 (0.83-1.09); PROTHROMBIN TIME (PATIENT) 14.5 SEC (9.7-13.0)
[2022-10-12 13:48] LABS: POTASSIUM 4.2 mmol/L (3.5-5.1)
[2022-10-12 13:55] LABS: ALBUMIN 3.2 g/dl (3.4-5.0)
[2022-10-12 13:57] LABS: CREATININE 0.9 mg/dL (0.55-1.3)
[2022-10-12 13:59] LABS: BILIRUBIN,TOTAL 0.4 mg/dL (0.2-1)
[2022-10-12 14:02] LABS: N-TERMINAL BNP 119.8 pg/ml (5-125)
[2022-10-12 14:04] LABS: ACTIVATED PTT 29.9 SECONDS (25.2-36.5)
[2022-10-12] MEDS ORDERED: TRIMETHOBENZAMIDE HCL 200MG/2ML INJ IM PRN (20:18)
[2022-10-12] MEDS ORDERED: ACETAMINOPHEN 1000 MG/100 ML BAG IVPB PRN (20:22)
[2022-10-12] MEDS ORDERED: ALBUTEROL SO4 HFA INHALER IH PRN (20:30)
[2022-10-12] MEDS ORDERED: MONTELUKAST NA 10 MG TABLET ONE (20:49)
[2022-10-12] MEDS: GABAPENTIN 300 MG CAPSULE PO SCH (20:50)
[2022-10-12] MEDS ORDERED: GABAPENTIN 300 MG CAPSULE ONE (20:50)
[2022-10-12] MEDS ORDERED: ENOXAPARIN NA (PORCINE) 40 MG/0.4 ML DISP.SYRIN SQ ONE (20:50)
[2022-10-12] MEDS: ENOXAPARIN NA (PORCINE) 40 MG/0.4 ML DISP.SYRIN SQ SCH (22:05)
[2022-10-12] MEDS: NYSTATIN 100,000 UNIT/GM TOPICAL CREAM 15 GM TUBE TP SCH (22:05)
[2022-10-12] MEDS: NYSTATIN POWDER 100,000 UNITS/GM - 15 GM TOPICAL POWDER TP SCH (22:06)
[2022-10-12] MEDS: BUDESONIDE/FORMETEROL FUMARATE 160/4.5 mcg INHALER IH SCH (22:06)
[2022-10-12] MEDS: MONTELUKAST NA 10 MG TABLET PO SCH (22:06)
[2022-10-12] MEDS: INSULIN SLIDING SCALE (NOVOLOG) 1 VIAL SQ SCH (22:14)
[2022-10-13] MEDS ORDERED: INSULIN (LEVEMIR) 100 UNITS/ML UNITS SQ ONE (05:31)
[2022-10-13] MEDS: GABAPENTIN 300 MG CAPSULE PO SCH ×2 (05:42→12:11)
[2022-10-13] MEDS: INSULIN (LEVEMIR) 100 UNITS/ML UNITS SQ SCH (06:52)
[2022-10-13] MEDS: INSULIN SLIDING SCALE (NOVOLOG) 1 VIAL SQ SCH ×4 (06:52→21:17)
[2022-10-13 09:47] LABS: HEMATOCRIT 41.6 % (32.4-45.2); HEMOGLOBIN 12.9 GM/dL (10.7-15.3); MCH 25.8 pg (25.7-33.7); MCHC 31.1 g/dl (32.0-36.0); MEAN PLT VOLUME 8.6 fl (7.5-11.1); PLATELET COUNT 292 10^3/uL (134-434); RBC 5.01 M/mm3 (3.60-5.2); RDW 15.7 % (11.6-15.6); WHITE BLOOD COUNT 10.5 K/mm3 (4.0-10.0)
[2022-10-13] MEDS: FAMOTIDINE 20 MG TABLET PO SCH (09:55)
[2022-10-13] MEDS: ENOXAPARIN NA (PORCINE) 40 MG/0.4 ML DISP.SYRIN SQ SCH ×2 (09:55→21:12)
[2022-10-13] MEDS: BUDESONIDE/FORMETEROL FUMARATE 160/4.5 mcg INHALER IH SCH ×2 (10:00→21:12)
[2022-10-13 10:03] LABS: POTASSIUM 4.1 mmol/L (3.5-5.1)
[2022-10-13] MEDS: NYSTATIN 100,000 UNIT/GM TOPICAL CREAM 15 GM TUBE TP SCH ×2 (10:03→21:20)
[2022-10-13] MEDS ORDERED: INSULIN (NOVOLOG) ASPART 100 UNITS/ML 10ML VIAL ONE (10:10)
[2022-10-13 10:13] LABS: ALBUMIN 3.2 g/dl (3.4-5.0); BLOOD UREA NITROGEN 8.2 mg/dL (7-18)
[2022-10-13 10:14] LABS: CREATININE 0.8 mg/dL (0.55-1.3)
[2022-10-13 10:17] LABS: BILIRUBIN,TOTAL 0.5 mg/dL (0.2-1); TOT PROT 6.6 g/dl (6.4-8.2)
[2022-10-13] MEDS ORDERED: LACTATED RINGERS SOLUTION 1,000 ML/1,000 ML INFUS.BAG IV SCH (10:45)
[2022-10-13] MEDS: BICTEGRAV/EMTRICIT/TENOFOV (BIKTARVY) 50-200-25 MG TABLET PO SCH (18:25)
[2022-10-13] MEDS: MONTELUKAST NA 10 MG TABLET PO SCH (21:12)
[2022-10-13] MEDS: GABAPENTIN 400 MG CAPSULE PO SCH (21:12)
[2022-10-13] MEDS: NYSTATIN POWDER 100,000 UNITS/GM - 15 GM TOPICAL POWDER TP SCH (21:20)
[2022-10-14] MEDS: GABAPENTIN 400 MG CAPSULE PO SCH ×3 (05:54→23:04)
[2022-10-14] MEDS: INSULIN SLIDING SCALE (NOVOLOG) 1 VIAL SQ SCH ×4 (05:59→23:05)
[2022-10-14] MEDS ORDERED: INSULIN (NOVOLOG) ASPART 100 UNITS/ML 10ML VIAL ONE (06:23)
[2022-10-14] MEDS: INSULIN (LEVEMIR) 100 UNITS/ML UNITS SQ SCH (06:28)
[2022-10-14 09:26] LABS: HEMATOCRIT 44.3 % (32.4-45.2); HEMOGLOBIN 14.3 GM/dL (10.7-15.3); MCHC 32.2 g/dl (32.0-36.0); MEAN CELL VOLUME 80.7 fl (80-96); MEAN PLT VOLUME 8.3 fl (7.5-11.1); PLATELET COUNT 313 10^3/uL (134-434); RBC 5.48 M/mm3 (3.60-5.2); RDW 15.6 % (11.6-15.6); WHITE BLOOD COUNT 10.3 K/mm3 (4.0-10.0)
[2022-10-14 09:37] LABS: POTASSIUM 4.2 mmol/L (3.5-5.1)
[2022-10-14 09:45] LABS: ALBUMIN 3.5 g/dl (3.4-5.0); BLOOD UREA NITROGEN 5.8 mg/dL (7-18); CALCIUM 9.4 mg/dL (8.5-10.1)
[2022-10-14 09:48] LABS: CREATININE 0.9 mg/dL (0.55-1.3)
[2022-10-14 09:49] LABS: BILIRUBIN,TOTAL 0.5 mg/dL (0.2-1); TOT PROT 7.1 g/dl (6.4-8.2)
[2022-10-14] MEDS: FAMOTIDINE 20 MG TABLET PO SCH (09:59)
[2022-10-14] MEDS: NYSTATIN 100,000 UNIT/GM TOPICAL CREAM 15 GM TUBE TP SCH ×2 (09:59→23:05)
[2022-10-14] MEDS: ENOXAPARIN NA (PORCINE) 40 MG/0.4 ML DISP.SYRIN SQ SCH ×3 (09:59→23:06)
[2022-10-14] MEDS: BICTEGRAV/EMTRICIT/TENOFOV (BIKTARVY) 50-200-25 MG TABLET PO SCH (09:59)
[2022-10-14] MEDS: BUDESONIDE/FORMETEROL FUMARATE 160/4.5 mcg INHALER IH SCH ×2 (10:00→23:04)
[2022-10-14] MEDS: MONTELUKAST NA 10 MG TABLET PO SCH (23:04)
[2022-10-14] MEDS: NYSTATIN POWDER 100,000 UNITS/GM - 15 GM TOPICAL POWDER TP SCH (23:05)
[2022-10-15] MEDS: INSULIN SLIDING SCALE (NOVOLOG) 1 VIAL SQ SCH ×2 (06:51→11:31)
[2022-10-15] MEDS: INSULIN (LEVEMIR) 100 UNITS/ML UNITS SQ SCH (06:51)
[2022-10-15] MEDS: GABAPENTIN 400 MG CAPSULE PO SCH ×2 (06:51→13:15)
[2022-10-15] MEDS: ENOXAPARIN NA (PORCINE) 40 MG/0.4 ML DISP.SYRIN SQ SCH (09:33)
[2022-10-15] MEDS: FAMOTIDINE 20 MG TABLET PO SCH (09:33)
[2022-10-15] MEDS: BICTEGRAV/EMTRICIT/TENOFOV (BIKTARVY) 50-200-25 MG TABLET PO SCH (09:33)
[2022-10-15] MEDS: BUDESONIDE/FORMETEROL FUMARATE 160/4.5 mcg INHALER IH SCH (09:34)
[2022-10-15] MEDS: NYSTATIN 100,000 UNIT/GM TOPICAL CREAM 15 GM TUBE TP SCH (09:35)
[2022-10-15 14:16] VITALS: BP 141/75; PULSE 62; RESP 18; TEMP 97.5
== END 2022-10-15 02:30 | disposition home or self-care (01) | DRG 347 ==
LOC: JER 11:35 → JERBED 18:20 → OBSVTOIN 20:18 → J6S 10-13 00:37
PROVIDERS: ADMIT Internal Medicine; ATTEND Internal Medicine
DX: M54.50 Low back pain, unspecified (principal); B20 Human immunodeficiency virus [HIV] disease; Z68.44 Body mass index [BMI] 60.0-69.9, adult; M62.830 Muscle spasm of back; R16.0 Hepatomegaly, not elsewhere classified; E11.9 Type 2 diabetes mellitus without complications; M79.7 Fibromyalgia; E66.01 Morbid (severe) obesity due to excess calories; K76.0 Fatty (change of) liver, not elsewhere classified; J45.909 Unspecified asthma, uncomplicated
CPT/HCPCS: 36415; 71046-TC-FY; 72131-TC; 74177-TC; 80053; 81003; 82962; 83605; 83690; 83735; 83880; 84100; 84484; 84703; 85025; 85027; 85610; 85730; 86140; 86850; 86900; 86901; 87086; 87186; 93005; 93010; 93970-TC; 99285-25; G0378; Q9967

== ENCOUNTER 2023-01-02 13:14 | Observation (INO) | payer OTHER ==
[2023-01-02 13:21] VITALS: BMI 60.3
[2023-01-02] MEDS ORDERED: methylPREDNISolone NA SUCC 125 MG/2 ML VIAL IVPB ONE (13:47)
[2023-01-02] MEDS ORDERED: MAGNESIUM SULFATE IN WATER 2 GM/50 ML IVPB IVPB ONE ×2 (13:48→14:10)
[2023-01-02] MEDS ORDERED: ALBUTEROL SO4 2.5/IPRATROPIUM 0.5 INH SOL 3 ML VIAL.NEB. NEB ONE (14:09)
[2023-01-02] MEDS ORDERED: methylPREDNISolone NA SUCC 125 MG/2 ML VIAL ONE (14:10)
[2023-01-02] MEDS: ALBUTEROL SO4 2.5/IPRATROPIUM 0.5 INH SOL 3 ML VIAL.NEB. NEB SCH ×4 (14:19→14:48)
[2023-01-02 14:37] LABS: VENOUS O2 SATURATION 91.3 % (70-80); VENOUS PCO2 46.3 mmHg (38-52); VENOUS PH 7.335 (7.310-7.410)
[2023-01-02 14:39] LABS: EOS % 1.7 % (0-4.5); HEMATOCRIT 41.8 % (32.4-45.2); HEMOGLOBIN 12.7 GM/dL (10.7-15.3); LYMPH % 24.6 % (8-40); MCH 24.9 pg (25.7-33.7); MCHC 30.4 g/dl (32.0-36.0); MEAN CELL VOLUME 81.7 fl (80-96); MEAN PLT VOLUME 8.7 fl (7.5-11.1); MONO % 6.3 % (3.8-10.2); NEUT % 61.4 % (42.8-82.8); PLATELET COUNT 324 10^3/uL (134-434); RBC 5.11 M/mm3 (3.60-5.2); RDW 15.8 % (11.6-15.6); WHITE BLOOD COUNT 11.5 K/mm3 (4.0-10.0)
[2023-01-02 14:46] LABS: INR 1.21 (0.83-1.09)
[2023-01-02 14:48] LABS: ACTIVATED PTT 28.2 SECONDS (25.2-36.5)
[2023-01-02 15:04] LABS: POTASSIUM 3.9 mmol/L (3.5-5.1)
[2023-01-02 15:06] LABS: ALBUMIN 3.5 g/dl (3.4-5.0); BLOOD UREA NITROGEN 7.2 mg/dL (7-18); CALCIUM 9.1 mg/dL (8.5-10.1)
[2023-01-02 15:09] LABS: ANISOCYTOSIS 1+; CREATININE 0.9 mg/dL (0.55-1.3); MACROCYTOSIS 0
[2023-01-02 15:11] LABS: BILIRUBIN,TOTAL 0.4 mg/dL (0.2-1); TOT PROT 6.9 g/dl (6.4-8.2)
[2023-01-02 15:14] LABS: N-TERMINAL BNP 115.1 pg/ml (5-125)
[2023-01-02 16:31] LABS: LACTIC ACID 2.7 mmol/L (0.4-2.0)
[2023-01-02] MEDS ORDERED: SODIUM CHLORIDE 0.9% 500 ML INFUS.BAG IV ONE (17:10)
[2023-01-02 20:53] LABS: LACTIC ACID 5.3 mmol/L (0.4-2.0)
[2023-01-02] MEDS ORDERED: ACETAMINOPHEN 1000 MG/100 ML BAG IVPB ONE (21:32)
[2023-01-02] MEDS ORDERED: ACETAMINOPHEN INJECTION 100 ML IVPB ONE (22:36)
[2023-01-03 00:06] LABS: MAGNESIUM 2.1 mg/dL (1.8-2.4)
[2023-01-03] MEDS ORDERED: ALBUTEROL SO4 HFA INHALER IH PRN (01:44)
[2023-01-03] MEDS ORDERED: GABAPENTIN 300 MG CAPSULE ONE ×2 (02:19→06:40)
[2023-01-03] MEDS: CEFTRIAXONE 1 GM in DEXTROSE 5%-WATER - 50 ML IVPB SCH ×3 (02:22→18:41)
[2023-01-03] MEDS: GABAPENTIN 300 MG CAPSULE PO SCH ×4 (02:23→21:30)
[2023-01-03] MEDS ORDERED: TOPIRAMATE 25 MG TABLET PO ONE (02:25)
[2023-01-03 06:58] LABS: EPI CELLS 12 /uL (0-25.1); HYALINE CASTS 0 /uL (0-3.1); URINE APPEARANCE CLEAR; URINE BACTERIA 187 /uL (0-1359); URINE BILIRUBIN NEGATIVE (NEGATIVE); URINE COLOR YELLOW; URINE GLUCOSE (UA) 3+ (NEGATIVE); URINE KETONE TRACE (NEGATIVE); URINE LEUK ESTERASE NEGATIVE (NEGATIVE); URINE NITRITE NEGATIVE (NEGATIVE); URINE PROTEIN NEGATIVE (NEGATIVE); URINE RBC 51 /uL (0-23.9); URINE WBC 6 /uL (0-25.8)
[2023-01-03 07:31] LABS: BASO % 0.5 % (0-2.0); HEMATOCRIT 41.8 % (32.4-45.2); HEMOGLOBIN 12.9 GM/dL (10.7-15.3); LYMPH % 10.7 % (8-40); MCH 25.2 pg (25.7-33.7); MEAN CELL VOLUME 81.2 fl (80-96); MEAN PLT VOLUME 8.9 fl (7.5-11.1); MONO % 3.9 % (3.8-10.2); NEUT % 84.9 % (42.8-82.8); PLATELET COUNT 347 10^3/uL (134-434); RBC 5.15 M/mm3 (3.60-5.2); WHITE BLOOD COUNT 16.6 K/mm3 (4.0-10.0)
[2023-01-03 07:51] LABS: POTASSIUM 4.5 mmol/L (3.5-5.1)
[2023-01-03 07:56] LABS: LACTIC ACID 3.2 mmol/L (0.4-2.0)
[2023-01-03 07:57] LABS: CALCIUM 9.4 mg/dL (8.5-10.1)
[2023-01-03 07:58] LABS: ALBUMIN 3.6 g/dl (3.4-5.0); BLOOD UREA NITROGEN 10.5 mg/dL (7-18); MAGNESIUM 2.1 mg/dL (1.8-2.4)
[2023-01-03 08:01] LABS: PHOSPHOROUS 2.3 mg/dL (2.5-4.9)
[2023-01-03 08:02] LABS: BILIRUBIN,TOTAL 0.4 mg/dL (0.2-1); TOT PROT 7.4 g/dl (6.4-8.2)
[2023-01-03] MEDS ORDERED: methylPREDNISolone NA SUCC 40 MG/1 ML VIAL IVPUSH SCH (09:00)
[2023-01-03] MEDS: INSULIN SLIDING SCALE (NOVOLOG) 1 VIAL SQ SCH ×4 (09:02→21:40)
[2023-01-03] MEDS: INSULIN (LEVEMIR) 100 UNITS/ML UNITS SQ SCH (09:02)
[2023-01-03] MEDS: BICTEGRAV/EMTRICIT/TENOFOV (BIKTARVY) 50-200-25 MG TABLET PO SCH (09:03)
[2023-01-03] MEDS: ALBUTEROL SO4 2.5/IPRATROPIUM 0.5 INH SOL 3 ML VIAL.NEB. NEB SCH ×4 (09:04→19:47)
[2023-01-03] MEDS ORDERED: PRAMIPEXOLE DIHYDROCHLORIDE 0.25 MG TABLET PO SCH (10:00)
[2023-01-03] MEDS: TOPIRAMATE 25 MG TABLET PO SCH ×2 (12:07→21:30)
[2023-01-03] MEDS: DULoxetine HCL 30 MG CAPSULE.DR PO SCH (12:07)
[2023-01-03] MEDS: CHOLECALCIFEROL (VIT D3) 1,000 UNIT (25 MCG) TABLET PO SCH (12:07)
[2023-01-03] MEDS: ENOXAPARIN NA (PORCINE) 40 MG/0.4 ML DISP.SYRIN SQ SCH (12:07)
[2023-01-03] MEDS: SODIUM CHLORIDE 1,000 ML IV SCH (17:09)
[2023-01-03] MEDS: NYSTATIN 100,000 UNIT/GM TOPICAL CREAM 15 GM TUBE TP SCH ×2 (17:57→22:17)
[2023-01-03] MEDS: BUDESONIDE/FORMETEROL FUMARATE 160/4.5 mcg INHALER IH SCH ×3 (18:02→21:32)
[2023-01-03] MEDS: MONTELUKAST NA 10 MG TABLET PO SCH (21:30)
[2023-01-03] MEDS: NYSTATIN POWDER 100,000 UNITS/GM - 15 GM TOPICAL POWDER TP SCH (22:17)
[2023-01-04] MEDS: GABAPENTIN 300 MG CAPSULE PO SCH ×3 (06:25→22:36)
[2023-01-04] MEDS: INSULIN (LEVEMIR) 100 UNITS/ML UNITS SQ SCH (06:25)
[2023-01-04] MEDS: INSULIN SLIDING SCALE (NOVOLOG) 1 VIAL SQ SCH ×4 (06:33→22:42)
[2023-01-04] MEDS: ALBUTEROL SO4 2.5/IPRATROPIUM 0.5 INH SOL 3 ML VIAL.NEB. NEB SCH ×4 (07:36→21:14)
[2023-01-04] MEDS ORDERED: INSULIN (NOVOLOG) ASPART 100 UNITS/ML 10ML VIAL ONE (08:29)
[2023-01-04] MEDS: BICTEGRAV/EMTRICIT/TENOFOV (BIKTARVY) 50-200-25 MG TABLET PO SCH (08:31)
[2023-01-04] MEDS: SODIUM CHLORIDE 1,000 ML IV SCH ×2 (09:25→18:56)
[2023-01-04] MEDS: CHOLECALCIFEROL (VIT D3) 1,000 UNIT (25 MCG) TABLET PO SCH (09:26)
[2023-01-04] MEDS: DULoxetine HCL 30 MG CAPSULE.DR PO SCH (09:26)
[2023-01-04] MEDS: TOPIRAMATE 25 MG TABLET PO SCH ×2 (09:26→22:36)
[2023-01-04] MEDS: ENOXAPARIN NA (PORCINE) 40 MG/0.4 ML DISP.SYRIN SQ SCH (09:28)
[2023-01-04] MEDS: CEFTRIAXONE 1 GM in DEXTROSE 5%-WATER - 50 ML IVPB SCH (09:28)
[2023-01-04 11:18] LABS: BASO % 0.9 % (0-2.0); EOS % 0.7 % (0-4.5); HEMATOCRIT 39.8 % (32.4-45.2); HEMOGLOBIN 12.3 GM/dL (10.7-15.3); LYMPH % 24.4 % (8-40); MCH 25.6 pg (25.7-33.7); MEAN CELL VOLUME 82.4 fl (80-96); MEAN PLT VOLUME 8.7 fl (7.5-11.1); MONO % 8.1 % (3.8-10.2); NEUT % 65.9 % (42.8-82.8); PLATELET COUNT 315 10^3/uL (134-434); RBC 4.83 M/mm3 (3.60-5.2); WHITE BLOOD COUNT 9.9 K/mm3 (4.0-10.0)
[2023-01-04] MEDS: BUDESONIDE/FORMETEROL FUMARATE 160/4.5 mcg INHALER IH SCH ×2 (11:25→22:40)
[2023-01-04] MEDS: NYSTATIN 100,000 UNIT/GM TOPICAL CREAM 15 GM TUBE TP SCH ×2 (11:25→22:40)
[2023-01-04 11:35] LABS: POTASSIUM 4.8 mmol/L (3.5-5.1)
[2023-01-04 11:54] LABS: CALCIUM 8.3 mg/dL (8.5-10.1)
[2023-01-04 11:55] LABS: ALBUMIN 3.3 g/dl (3.4-5.0); BLOOD UREA NITROGEN 13.8 mg/dL (7-18)
[2023-01-04 11:58] LABS: CREATININE 1.1 mg/dL (0.55-1.3)
[2023-01-04 12:00] LABS: BILIRUBIN,TOTAL 0.4 mg/dL (0.2-1); TOT PROT 6.6 g/dl (6.4-8.2)
[2023-01-04] MEDS: MONTELUKAST NA 10 MG TABLET PO SCH (22:36)
[2023-01-04] MEDS: NYSTATIN POWDER 100,000 UNITS/GM - 15 GM TOPICAL POWDER TP SCH (22:39)
[2023-01-05] MEDS: SODIUM CHLORIDE 1,000 ML IV SCH (05:31)
[2023-01-05] MEDS: INSULIN SLIDING SCALE (NOVOLOG) 1 VIAL SQ SCH ×2 (06:25→10:54)
[2023-01-05] MEDS: GABAPENTIN 300 MG CAPSULE PO SCH ×2 (06:25→13:23)
[2023-01-05] MEDS: ALBUTEROL SO4 2.5/IPRATROPIUM 0.5 INH SOL 3 ML VIAL.NEB. NEB SCH ×3 (08:18→16:01)
[2023-01-05] MEDS: ENOXAPARIN NA (PORCINE) 40 MG/0.4 ML DISP.SYRIN SQ SCH (09:09)
[2023-01-05] MEDS: CHOLECALCIFEROL (VIT D3) 1,000 UNIT (25 MCG) TABLET PO SCH (09:10)
[2023-01-05] MEDS: BICTEGRAV/EMTRICIT/TENOFOV (BIKTARVY) 50-200-25 MG TABLET PO SCH (09:10)
[2023-01-05] MEDS: TOPIRAMATE 25 MG TABLET PO SCH (09:10)
[2023-01-05] MEDS: DULoxetine HCL 30 MG CAPSULE.DR PO SCH (09:10)
[2023-01-05] MEDS: BUDESONIDE/FORMETEROL FUMARATE 160/4.5 mcg INHALER IH SCH (09:11)
[2023-01-05] MEDS: NYSTATIN 100,000 UNIT/GM TOPICAL CREAM 15 GM TUBE TP SCH (09:11)
[2023-01-05] MEDS ORDERED: INSULIN (LEVEMIR) 100 UNITS/ML UNITS SQ SCH (10:00)
[2023-01-05 10:05] VITALS: RESP 20
[2023-01-05] MEDS ORDERED: INSULIN (NOVOLOG) ASPART 100 UNITS/ML 10ML VIAL ONE (10:39)
[2023-01-05 11:24] LABS: BASO % 0.6 % (0-2.0); HEMATOCRIT 40.8 % (32.4-45.2); HEMOGLOBIN 12.9 GM/dL (10.7-15.3); LYMPH % 21.8 % (8-40); MCH 25.3 pg (25.7-33.7); MCHC 31.5 g/dl (32.0-36.0); MEAN CELL VOLUME 80.3 fl (80-96); MEAN PLT VOLUME 8.5 fl (7.5-11.1); MONO % 7.4 % (3.8-10.2); NEUT % 69.2 % (42.8-82.8); PLATELET COUNT 294 10^3/uL (134-434); RBC 5.08 M/mm3 (3.60-5.2); WHITE BLOOD COUNT 10.2 K/mm3 (4.0-10.0)
[2023-01-05 11:44] LABS: POTASSIUM 4.2 mmol/L (3.5-5.1)
[2023-01-05 12:20] LABS: BLOOD UREA NITROGEN 12.2 mg/dL (7-18); CALCIUM 8.8 mg/dL (8.5-10.1)
[2023-01-05 12:21] LABS: CREATININE 0.8 mg/dL (0.55-1.3)
[2023-01-05 14:38] VITALS: BP 138/73; PULSE 68; TEMP 97.9
== END 2023-01-05 16:18 | disposition home or self-care (01) ==
LOC: JER 13:14 → JERBED 23:36 → J6S 01-03 10:18
PROVIDERS: ADMIT Internal Medicine; ATTEND Internal Medicine
PROC: 3E033NZ Introduction of Analgesics, Hypnotics, Sedatives into Peripheral Vein, Percutaneous Approach (ICD-10-PCS; principal; 2023-01-02)
PROC: 3E0F7GC Introduction of Other Therapeutic Substance into Respiratory Tract, Via Natural or Artificial Opening (ICD-10-PCS; 2023-01-02)
PROC: 3E03329 Introduction of Other Anti-infective into Peripheral Vein, Percutaneous Approach (ICD-10-PCS; 2023-01-02)
PROC: 3E023GC Introduction of Other Therapeutic Substance into Muscle, Percutaneous Approach (ICD-10-PCS; 2023-01-02)
DX: J45.901 Unspecified asthma with (acute) exacerbation (principal); G43.909 Migraine, unspecified, not intractable, without status migrainosus; B20 Human immunodeficiency virus [HIV] disease; D72.829 Elevated white blood cell count, unspecified; N94.9 Unspecified condition associated with female genital organs and menstrual cycle; E87.20 Acidosis, unspecified; M79.7 Fibromyalgia; E66.01 Morbid (severe) obesity due to excess calories; Z68.44 Body mass index [BMI] 60.0-69.9, adult; E11.9 Type 2 diabetes mellitus without complications; Z88.8 Allergy status to other drugs, medicaments and biological substances
CPT/HCPCS: 0241U-QW; 36415; 71045-TC-FY; 73660-TC-LT-FY; 74177-TC; 80048; 80053; 81003; 82803; 82962; 83036; 83605; 83735; 83880; 84100; 84484; 85025; 85610; 85730; 86140; 87040; 87086; 93005; 93010; 93970-TC; 94640; 96365; 96372; 96374; 99285-25; G0378; Q9967

== ENCOUNTER 2023-02-21 13:13 | Inpatient (IN) | payer OTHER ==
[2023-02-21] MEDS ORDERED: ONDANSETRON 4 MG/2 ML VIAL IVPUSH ONE (14:38)
[2023-02-21] MEDS ORDERED: ACETAMINOPHEN 1000 MG/100 ML BAG IVPB ONE (14:38)
[2023-02-21] MEDS ORDERED: ACETAMINOPHEN INJECTION 100 ML IVPB ONE (14:53)
[2023-02-21] MEDS ORDERED: ONDANSETRON 4 MG/2 ML VIAL ONE (14:53)
[2023-02-21 15:51] LABS: BASO % 1.1 % (0-2.0); EOS % 1.6 % (0-4.5); HEMOGLOBIN 13.1 GM/dL (10.7-15.3); MCH 25.6 pg (25.7-33.7); MCHC 31.9 g/dl (32.0-36.0); MEAN CELL VOLUME 80.1 fl (80-96); MEAN PLT VOLUME 8.4 fl (7.5-11.1); MONO % 7.5 % (3.8-10.2); NEUT % 67.8 % (42.8-82.8); PLATELET COUNT 299 10^3/uL (134-434); RBC 5.13 M/mm3 (3.60-5.2); RDW 17.1 % (11.6-15.6); WHITE BLOOD COUNT 10.5 K/mm3 (4.0-10.0)
[2023-02-21 15:58] LABS: INR 1.12 (0.83-1.09)
[2023-02-21 16:00] LABS: ACTIVATED PTT 29.7 SECONDS (25.2-36.5)
[2023-02-21 16:04] LABS: CALCIUM 8.8 mg/dL (8.5-10.1)
[2023-02-21 16:05] LABS: ALBUMIN 3.4 g/dl (3.4-5.0); BLOOD UREA NITROGEN 9.2 mg/dL (7-18); MAGNESIUM 1.9 mg/dL (1.8-2.4)
[2023-02-21 16:08] LABS: CREATININE 0.8 mg/dL (0.55-1.3)
[2023-02-21 16:10] LABS: BILIRUBIN,TOTAL 0.4 mg/dL (0.2-1); TOT PROT 6.6 g/dl (6.4-8.2)
[2023-02-21 16:41] LABS: LACTIC ACID 2.3 mmol/L (0.4-2.0)
[2023-02-21] MEDS ORDERED: SODIUM CHLORIDE 0.9% 500 ML INFUS.BAG IV ONE (21:11)
[2023-02-21] MEDS ORDERED: VANCOMYCIN 1,000 MG in DEXTROSE 5%-WATER - 250 ML IVPB ONE (22:15)
[2023-02-21] MEDS ORDERED: PIPERACILLIN/TAZOB 4.5 GM 4.5 GM in DEXTROSE 5%-WATER 100 ML IVPB ONE (22:15)
[2023-02-21] MEDS ORDERED: PIPERACILLIN/TAZOB 4.5 GM 4.5 GM/100 ML BAG IVPB ONE (22:30)
[2023-02-21] MEDS ORDERED: VANCOMYCIN 1 GRAM (PRE-DOCKED) 1,000 MG/250 ML BAG IVPB ONE (22:30)
[2023-02-21 23:09] VITALS: RESP 18
[2023-02-22] MEDS ORDERED: ACETAMINOPHEN INJECTION 100 ML IVPB ONE (03:49)
[2023-02-22] MEDS: ACETAMINOPHEN 1000 MG/100 ML BAG IVPB PRN ×3 (03:56→21:59)
[2023-02-22 06:11] VITALS: BMI 61.4
[2023-02-22] MEDS: PIPERACILLIN/TAZOB 3.375 GM 3.375 GM in DEXTROSE 5%-WATER - 50 ML IVPB SCH ×2 (06:22→09:47)
[2023-02-22] MEDS: INSULIN ASPART SLIDING SCALE (NOVOLOG) 1 VIAL SQ SCH ×3 (06:34→17:02)
[2023-02-22] MEDS ORDERED: VANCOMYCIN 2,000 MG in DEXTROSE 5%-WATER - 500 ML IVPB ONE (08:00)
[2023-02-22] MEDS: ENOXAPARIN NA (PORCINE) 40 MG/0.4 ML DISP.SYRIN SQ SCH ×2 (08:23→22:00)
[2023-02-22 08:59] LABS: HEMATOCRIT 39.5 % (32.4-45.2); HEMOGLOBIN 12.8 GM/dL (10.7-15.3); MCH 26.1 pg (25.7-33.7); MCHC 32.5 g/dl (32.0-36.0); MEAN CELL VOLUME 80.2 fl (80-96); MEAN PLT VOLUME 8.4 fl (7.5-11.1); PLATELET COUNT 283 10^3/uL (134-434); RBC 4.93 M/mm3 (3.60-5.2); RDW 16.6 % (11.6-15.6); WHITE BLOOD COUNT 9.6 K/mm3 (4.0-10.0)
[2023-02-22 09:55] LABS: ALBUMIN 3.2 g/dl (3.4-5.0); CALCIUM 8.6 mg/dL (8.5-10.1); MAGNESIUM 1.9 mg/dL (1.8-2.4)
[2023-02-22 09:56] LABS: BLOOD UREA NITROGEN 7.7 mg/dL (7-18)
[2023-02-22 09:58] LABS: CREATININE 0.9 mg/dL (0.55-1.3); PHOSPHOROUS 3.7 mg/dL (2.5-4.9)
[2023-02-22 10:00] LABS: TOT PROT 6.4 g/dl (6.4-8.2)
[2023-02-22] MEDS ORDERED: INSULIN (NOVOLOG) ASPART 100 UNITS/ML 10ML VIAL ONE (11:04)
[2023-02-22] MEDS: COD LIVER OIL/ZINC OXIDE PASTE 56 GM TUBE TP PRN (12:29)
[2023-02-22] MEDS ORDERED: ALBUTEROL SO4 HFA INHALER IH PRN (16:11)
[2023-02-22] MEDS: BICTEGRAV/EMTRICIT/TENOFOV (BIKTARVY) 50-200-25 MG TABLET PO SCH (17:06)
[2023-02-22] MEDS: INSULIN (LEVEMIR) 100 UNITS/ML UNITS SQ SCH (21:46)
[2023-02-22] MEDS: ROSUVASTATIN CA 5 MG TABLET PO SCH (21:48)
[2023-02-22] MEDS: GABAPENTIN 300 MG CAPSULE PO SCH (21:48)
[2023-02-22] MEDS: MONTELUKAST NA 10 MG TABLET PO SCH (21:48)
[2023-02-22] MEDS: TOPIRAMATE 25 MG TABLET PO SCH (21:48)
[2023-02-22] MEDS: CEFTAROLINE FOSAMIL ACETATE IVPB SCH (21:49)
[2023-02-22] MEDS: WATER IVPB SCH (21:49)
[2023-02-22] MEDS: DEXTROSE 5% IVPB SCH (21:49)
[2023-02-22] MEDS ORDERED: INSULIN (LEVEMIR) 100 UNITS/ML UNITS SQ SCH (22:00)
[2023-02-22] MEDS: BUDESONIDE/FORMETEROL FUMARATE 80/4.5 mcg INHALER IH SCH (22:14)
[2023-02-23] MEDS ORDERED: PIPERACILLIN/TAZOB 3.375 GM 3.375 GM in DEXTROSE 5%-WATER - 50 ML IVPB SCH (02:00)
[2023-02-23] MEDS: GABAPENTIN 300 MG CAPSULE PO SCH ×3 (08:46→21:54)
[2023-02-23] MEDS: INSULIN ASPART SLIDING SCALE (NOVOLOG) 1 VIAL SQ SCH ×3 (08:47→16:55)
[2023-02-23] MEDS: INSULIN (LEVEMIR) 100 UNITS/ML UNITS SQ SCH ×2 (08:47→22:04)
[2023-02-23] MEDS: BICTEGRAV/EMTRICIT/TENOFOV (BIKTARVY) 50-200-25 MG TABLET PO SCH (08:47)
[2023-02-23] MEDS: DEXTROSE 5% IVPB SCH ×2 (09:29→21:55)
[2023-02-23] MEDS: WATER IVPB SCH ×2 (09:29→21:55)
[2023-02-23] MEDS: CEFTAROLINE FOSAMIL ACETATE IVPB SCH ×2 (09:29→21:55)
[2023-02-23] MEDS: TOPIRAMATE 25 MG TABLET PO SCH ×2 (09:29→21:54)
[2023-02-23] MEDS: ENOXAPARIN NA (PORCINE) 40 MG/0.4 ML DISP.SYRIN SQ SCH ×2 (09:29→21:54)
[2023-02-23 09:40] LABS: HEMATOCRIT 41.4 % (32.4-45.2); HEMOGLOBIN 12.9 GM/dL (10.7-15.3); MCH 25.6 pg (25.7-33.7); MCHC 31.3 g/dl (32.0-36.0); MEAN PLT VOLUME 8.4 fl (7.5-11.1); PLATELET COUNT 320 10^3/uL (134-434); RBC 5.05 M/mm3 (3.60-5.2); RDW 17.3 % (11.6-15.6); WHITE BLOOD COUNT 8.1 K/mm3 (4.0-10.0)
[2023-02-23 10:10] LABS: POTASSIUM 4.5 mmol/L (3.5-5.1)
[2023-02-23 10:18] LABS: CALCIUM 8.8 mg/dL (8.5-10.1)
[2023-02-23 10:19] LABS: ALBUMIN 3.3 g/dl (3.4-5.0); BLOOD UREA NITROGEN 11.6 mg/dL (7-18)
[2023-02-23 10:22] LABS: CREATININE 0.8 mg/dL (0.55-1.3)
[2023-02-23 10:23] LABS: BILIRUBIN,TOTAL 0.3 mg/dL (0.2-1); TOT PROT 6.8 g/dl (6.4-8.2)
[2023-02-23] MEDS: BUDESONIDE/FORMETEROL FUMARATE 80/4.5 mcg INHALER IH SCH ×2 (10:51→21:57)
[2023-02-23] MEDS ORDERED: INSULIN (NOVOLOG) ASPART 100 UNITS/ML 10ML VIAL ONE (11:26)
[2023-02-23] MEDS: FLUCONAZOLE 100 MG TABLET (UD) PO SCH (12:10)
[2023-02-23] MEDS: ROSUVASTATIN CA 5 MG TABLET PO SCH (21:54)
[2023-02-23] MEDS: MONTELUKAST NA 10 MG TABLET PO SCH (21:55)
[2023-02-24] MEDS ORDERED: KETOROLAC TROMETHAMINE 15 MG/ML VIAL IVPUSH ONE (04:02)
[2023-02-24] MEDS: GABAPENTIN 300 MG CAPSULE PO SCH ×3 (06:37→21:25)
[2023-02-24] MEDS: INSULIN (LEVEMIR) 100 UNITS/ML UNITS SQ SCH ×2 (06:37→21:26)
[2023-02-24] MEDS: INSULIN ASPART SLIDING SCALE (NOVOLOG) 1 VIAL SQ SCH ×3 (06:41→18:57)
[2023-02-24 09:16] LABS: HEMATOCRIT 40.9 % (32.4-45.2); MCH 25.6 pg (25.7-33.7); MCHC 31.7 g/dl (32.0-36.0); MEAN CELL VOLUME 80.9 fl (80-96); MEAN PLT VOLUME 8.4 fl (7.5-11.1); PLATELET COUNT 302 10^3/uL (134-434); RBC 5.06 M/mm3 (3.60-5.2); RDW 16.9 % (11.6-15.6)
[2023-02-24 09:47] LABS: POTASSIUM 4.5 mmol/L (3.5-5.1)
[2023-02-24 10:17] LABS: CALCIUM 8.9 mg/dL (8.5-10.1)
[2023-02-24 10:18] LABS: ALBUMIN 3.2 g/dl (3.4-5.0); BLOOD UREA NITROGEN 11.1 mg/dL (7-18)
[2023-02-24 10:20] LABS: CREATININE 0.8 mg/dL (0.55-1.3)
[2023-02-24 10:22] LABS: BILIRUBIN,TOTAL 0.2 mg/dL (0.2-1); TOT PROT 6.6 g/dl (6.4-8.2)
[2023-02-24] MEDS: FLUCONAZOLE 100 MG TABLET (UD) PO SCH (10:56)
[2023-02-24] MEDS: ENOXAPARIN NA (PORCINE) 40 MG/0.4 ML DISP.SYRIN SQ SCH ×2 (10:56→21:26)
[2023-02-24] MEDS: BICTEGRAV/EMTRICIT/TENOFOV (BIKTARVY) 50-200-25 MG TABLET PO SCH (10:57)
[2023-02-24] MEDS: TOPIRAMATE 25 MG TABLET PO SCH ×2 (10:57→21:25)
[2023-02-24] MEDS: BUDESONIDE/FORMETEROL FUMARATE 80/4.5 mcg INHALER IH SCH ×2 (10:58→21:27)
[2023-02-24] MEDS: CEFTAROLINE FOSAMIL ACETATE IVPB SCH (12:34)
[2023-02-24] MEDS: WATER IVPB SCH (12:34)
[2023-02-24] MEDS: DEXTROSE 5% IVPB SCH (12:34)
[2023-02-24] MEDS: INSULIN (NOVOLOG) ASPART 100 UNITS/ML 10ML VIAL SQ SCH ×2 (12:43→18:58)
[2023-02-24] MEDS: AMPICILLIN NA/SULBACTAM NA 3 GM in SODIUM CHLORIDE 100 ML IVPB SCH ×2 (15:56→21:26)
[2023-02-24] MEDS: ROSUVASTATIN CA 5 MG TABLET PO SCH (21:25)
[2023-02-24] MEDS: MONTELUKAST NA 10 MG TABLET PO SCH (21:25)
[2023-02-24] MEDS: COD LIVER OIL/ZINC OXIDE PASTE 56 GM TUBE TP PRN (21:37)
[2023-02-25] MEDS: AMPICILLIN NA/SULBACTAM NA 3 GM in SODIUM CHLORIDE 100 ML IVPB SCH ×4 (02:10→21:27)
[2023-02-25] MEDS: GABAPENTIN 300 MG CAPSULE PO SCH ×3 (05:55→21:27)
[2023-02-25] MEDS: INSULIN (LEVEMIR) 100 UNITS/ML UNITS SQ SCH ×2 (06:23→21:29)
[2023-02-25] MEDS: INSULIN (NOVOLOG) ASPART 100 UNITS/ML 10ML VIAL SQ SCH ×3 (06:23→17:43)
[2023-02-25] MEDS: INSULIN ASPART SLIDING SCALE (NOVOLOG) 1 VIAL SQ SCH ×3 (06:24→17:45)
[2023-02-25 09:33] LABS: BASO % 0.7 % (0-2.0); EOS % 2.3 % (0-4.5); HEMATOCRIT 40.9 % (32.4-45.2); HEMOGLOBIN 13.3 GM/dL (10.7-15.3); MCH 26.2 pg (25.7-33.7); MCHC 32.4 g/dl (32.0-36.0); MEAN CELL VOLUME 80.6 fl (80-96); MEAN PLT VOLUME 8.3 fl (7.5-11.1); MONO % 7.2 % (3.8-10.2); NEUT % 67.8 % (42.8-82.8); PLATELET COUNT 293 10^3/uL (134-434); RBC 5.07 M/mm3 (3.60-5.2); RDW 16.7 % (11.6-15.6)
[2023-02-25 09:59] LABS: POTASSIUM 4.4 mmol/L (3.5-5.1)
[2023-02-25 10:01] LABS: BLOOD UREA NITROGEN 8.7 mg/dL (7-18); CALCIUM 8.6 mg/dL (8.5-10.1)
[2023-02-25 10:05] LABS: CREATININE 0.9 mg/dL (0.55-1.3)
[2023-02-25] MEDS: TOPIRAMATE 25 MG TABLET PO SCH ×2 (10:52→21:27)
[2023-02-25] MEDS: BICTEGRAV/EMTRICIT/TENOFOV (BIKTARVY) 50-200-25 MG TABLET PO SCH (10:53)
[2023-02-25] MEDS: ENOXAPARIN NA (PORCINE) 40 MG/0.4 ML DISP.SYRIN SQ SCH ×2 (10:53→21:26)
[2023-02-25] MEDS: FLUCONAZOLE 100 MG TABLET (UD) PO SCH (10:54)
[2023-02-25] MEDS: BUDESONIDE/FORMETEROL FUMARATE 80/4.5 mcg INHALER IH SCH ×2 (10:55→21:28)
[2023-02-25] MEDS: ROSUVASTATIN CA 5 MG TABLET PO SCH (21:27)
[2023-02-25] MEDS: MONTELUKAST NA 10 MG TABLET PO SCH (21:27)
[2023-02-26] MEDS: AMPICILLIN NA/SULBACTAM NA 3 GM in SODIUM CHLORIDE 100 ML IVPB SCH ×4 (02:37→21:34)
[2023-02-26] MEDS: GABAPENTIN 300 MG CAPSULE PO SCH ×3 (06:16→21:35)
[2023-02-26] MEDS: INSULIN (LEVEMIR) 100 UNITS/ML UNITS SQ SCH ×2 (06:17→21:44)
[2023-02-26] MEDS: INSULIN (NOVOLOG) ASPART 100 UNITS/ML 10ML VIAL SQ SCH ×3 (06:17→16:55)
[2023-02-26] MEDS: INSULIN ASPART SLIDING SCALE (NOVOLOG) 1 VIAL SQ SCH ×3 (06:18→16:54)
[2023-02-26] MEDS: FLUCONAZOLE 100 MG TABLET (UD) PO SCH (09:25)
[2023-02-26] MEDS: ENOXAPARIN NA (PORCINE) 40 MG/0.4 ML DISP.SYRIN SQ SCH ×2 (09:25→21:33)
[2023-02-26] MEDS: BICTEGRAV/EMTRICIT/TENOFOV (BIKTARVY) 50-200-25 MG TABLET PO SCH (09:25)
[2023-02-26] MEDS: BUDESONIDE/FORMETEROL FUMARATE 80/4.5 mcg INHALER IH SCH ×2 (09:26→21:44)
[2023-02-26] MEDS: TOPIRAMATE 25 MG TABLET PO SCH ×2 (09:26→21:35)
[2023-02-26 09:39] LABS: MCH 25.7 pg (25.7-33.7); MCHC 31.1 g/dl (32.0-36.0); MEAN CELL VOLUME 82.8 fl (80-96); MEAN PLT VOLUME 8.3 fl (7.5-11.1); PLATELET COUNT 290 10^3/uL (134-434); RBC 5.07 M/mm3 (3.60-5.2); RDW 17.2 % (11.6-15.6); WHITE BLOOD COUNT 9.8 K/mm3 (4.0-10.0)
[2023-02-26 10:08] LABS: POTASSIUM 4.2 mmol/L (3.5-5.1)
[2023-02-26 10:15] LABS: CALCIUM 8.8 mg/dL (8.5-10.1)
[2023-02-26 10:16] LABS: BLOOD UREA NITROGEN 8.8 mg/dL (7-18)
[2023-02-26 10:17] LABS: ALBUMIN 3.3 g/dl (3.4-5.0)
[2023-02-26 10:18] LABS: BILIRUBIN,TOTAL 0.4 mg/dL (0.2-1)
[2023-02-26 10:21] LABS: CREATININE 0.8 mg/dL (0.55-1.3); TOT PROT 6.9 g/dl (6.4-8.2)
[2023-02-26] MEDS: VANCOMYCIN 2,000 MG in DEXTROSE 5%-WATER - 500 ML IVPB SCH (11:03)
[2023-02-26] MEDS ORDERED: ACETAMINOPHEN 1000 MG/100 ML BAG IVPB ONE (15:27)
[2023-02-26] MEDS: ROSUVASTATIN CA 5 MG TABLET PO SCH (21:35)
[2023-02-26] MEDS: MONTELUKAST NA 10 MG TABLET PO SCH (21:35)
[2023-02-27] MEDS: AMPICILLIN NA/SULBACTAM NA 3 GM in SODIUM CHLORIDE 100 ML IVPB SCH ×3 (03:23→14:38)
[2023-02-27] MEDS: GABAPENTIN 300 MG CAPSULE PO SCH ×2 (06:13→14:16)
[2023-02-27] MEDS: INSULIN (LEVEMIR) 100 UNITS/ML UNITS SQ SCH (07:03)
[2023-02-27] MEDS: INSULIN (NOVOLOG) ASPART 100 UNITS/ML 10ML VIAL SQ SCH ×2 (07:04→11:16)
[2023-02-27] MEDS: INSULIN ASPART SLIDING SCALE (NOVOLOG) 1 VIAL SQ SCH ×2 (07:05→11:16)
[2023-02-27] MEDS: BICTEGRAV/EMTRICIT/TENOFOV (BIKTARVY) 50-200-25 MG TABLET PO SCH (08:24)
[2023-02-27] MEDS: FLUCONAZOLE 100 MG TABLET (UD) PO SCH (09:21)
[2023-02-27] MEDS: ENOXAPARIN NA (PORCINE) 40 MG/0.4 ML DISP.SYRIN SQ SCH (09:21)
[2023-02-27] MEDS: BUDESONIDE/FORMETEROL FUMARATE 80/4.5 mcg INHALER IH SCH (09:21)
[2023-02-27] MEDS: TOPIRAMATE 25 MG TABLET PO SCH (09:21)
[2023-02-27] MEDS ORDERED: ALBUTEROL SO4 0.083% IH SOL 2.5 MG/3 ML VIAL.NEB. NEB ONE (10:50)
[2023-02-27] MEDS ORDERED: ACETAMINOPHEN 1000 MG/100 ML BAG IVPB ONE (13:00)
[2023-02-27] MEDS ORDERED: ACETAMINOPHEN 325 MG TABLET (FP) PO PRN (13:07)
[2023-02-27 14:23] VITALS: BP 106/66; PULSE 71; TEMP 97.5
== END 2023-02-27 18:20 | disposition home or self-care (01) | DRG 894 ==
LOC: JER 13:13 → JERBED 23:22 → J6S 02-22 05:11
PROVIDERS: ADMIT Internal Medicine; ATTEND Internal Medicine
DX: L03.311 Cellulitis of abdominal wall (principal); E11.9 Type 2 diabetes mellitus without complications; E78.5 Hyperlipidemia, unspecified; G47.33 Obstructive sleep apnea (adult) (pediatric); J45.909 Unspecified asthma, uncomplicated; L30.4 Erythema intertrigo; B20 Human immunodeficiency virus [HIV] disease; K58.9 Irritable bowel syndrome, unspecified; M79.7 Fibromyalgia; N20.0 Calculus of kidney; E66.01 Morbid (severe) obesity due to excess calories; Z68.44 Body mass index [BMI] 60.0-69.9, adult
CPT/HCPCS: 36415; 71046-TC-FY; 74177-TC; 80048; 80053; 82962; 83605; 83735; 84100; 84484; 84703; 85025; 85027; 85610; 85730; 86850; 86900; 86901; 87040; 87070; 87076; 87205; 93005; 93010; 99285-25; Q9967

== ENCOUNTER 2023-04-06 04:11 | Day surgery (SDC) | payer OTHER ==
[2023-03-15 17:28] VITALS: BMI 60.3
[2023-04-06] MEDS ORDERED: LIDOCAINE HCL/PF 1% SDV 5ML VIAL ONE (07:22)
[2023-04-06] MEDS ORDERED: BUPIVACAINE HCL/PF 0.5% (5MG/ML) 10 ML VIAL ONE (07:22)
[2023-04-06] MEDS ORDERED: TRIAMCINOLONE ACET 40MG/1ML VIAL ONE (07:23)
[2023-04-06 07:59] VITALS: RESP 20
[2023-04-06] MEDS ORDERED: LIDOCAINE HCL 1% PRESERVATIVE FREE - 30ML VIAL IJ ONE (09:28)
[2023-04-06] MEDS ORDERED: BUPIVACAINE HCL/PF 0.5% (5MG/ML) 10 ML VIAL IJ ONE (09:28)
[2023-04-06] MEDS ORDERED: IOHEXOL 180 MG/1 ML ML IJ ONE (09:29)
[2023-04-06] MEDS ORDERED: TRIAMCINOLONE ACETONIDE 40 MG/ML 10 ML VIAL IJ ONE (09:29)
[2023-04-06 09:46] VITALS: BP 114/54; PULSE 81; TEMP 98.1
[2023-04-06] MEDS ORDERED: ACETAMINOPHEN 500 MG TABLET (FP) PO PRN (09:52)
== END 2023-04-06 10:10 | disposition home or self-care (01) ==
LOC: JASU-SURG 04:11
PROVIDERS: ATTEND Pain Medicine Pain Medicine
PROC: 3E0U3BZ Introduction of Anesthetic Agent into Joints, Percutaneous Approach (ICD-10-PCS; 2023-04-06)
PROC: 3E0U33Z Introduction of Anti-inflammatory into Joints, Percutaneous Approach (ICD-10-PCS; principal; 2023-04-06 09:30)
DX: M53.3 Sacrococcygeal disorders, not elsewhere classified (principal)
CPT/HCPCS: 76000-TC-FY; 82962

== ENCOUNTER 2023-06-01 15:38 | Emergency (ER) | payer OTHER ==
[2023-06-01 15:51] VITALS: BP 112/55; PULSE 82; RESP 18; TEMP 98; BMI 58.5
[2023-06-01] MEDS ORDERED: SODIUM CHLORIDE 0.9% 500 ML INFUS.BAG IV ONE (16:50)
[2023-06-01] MEDS ORDERED: ACETAMINOPHEN 1000 MG/100 ML BAG IVPB ONE (16:50)
[2023-06-01] MEDS ORDERED: LIDOCAINE 5% TOPICAL PATCH TP ONE (16:50)
[2023-06-01] MEDS ORDERED: FAMOTIDINE 20 MG/50 ML IVPB 20 MG/50 ML MG IVPB ONE ×2 (16:51→17:47)
[2023-06-01] MEDS ORDERED: ONDANSETRON 4 MG/2 ML VIAL IVPB ONE (16:51)
[2023-06-01] MEDS ORDERED: LIDOCAINE 4% PATCH TP ONE (17:47)
[2023-06-01] MEDS ORDERED: ONDANSETRON 4 MG/2 ML VIAL ONE (17:47)
[2023-06-01] MEDS ORDERED: ACETAMINOPHEN INJECTION 100 ML IVPB ONE (18:03)
[2023-06-01 18:22] LABS: BASO % 0.3 % (0-2.0); EOS % 1.1 % (0-4.5); HEMATOCRIT 43.9 % (32.4-45.2); HEMOGLOBIN 13.8 GM/dL (10.7-15.3); LYMPH % 21.4 % (8-40); MCH 25.5 pg (25.7-33.7); MCHC 31.5 g/dl (32.0-36.0); MEAN CELL VOLUME 81.2 fl (80-96); MEAN PLT VOLUME 7.9 fl (7.5-11.1); MONO % 6.7 % (3.8-10.2); NEUT % 70.5 % (42.8-82.8); PLATELET COUNT 346 10^3/uL (134-434); RBC 5.41 M/mm3 (3.60-5.2); RDW 15.3 % (11.6-15.6); WHITE BLOOD COUNT 13.4 K/mm3 (4.0-10.0)
[2023-06-01 18:25] LABS: EPI CELLS >36 /uL (0-25.1); HYALINE CASTS 1 /uL (0-3.1); PH,URINE 5.5 (5.0-8.0); URINE APPEARANCE CLEAR; URINE BACTERIA 56 /uL (0-1359); URINE BILIRUBIN NEGATIVE (NEGATIVE); URINE COLOR YELLOW; URINE GLUCOSE (UA) NEGATIVE (NEGATIVE); URINE KETONE NEGATIVE (NEGATIVE); URINE LEUK ESTERASE NEGATIVE (NEGATIVE); URINE NITRITE NEGATIVE (NEGATIVE); URINE PROTEIN NEGATIVE (NEGATIVE); URINE RBC 53 /uL (0-23.9); URINE WBC 11 /uL (0-25.8)
[2023-06-01 18:37] LABS: POTASSIUM 4.2 mmol/L (3.5-5.1)
[2023-06-01 18:39] LABS: CALCIUM 9.5 mg/dL (8.5-10.1)
[2023-06-01 18:40] LABS: ALBUMIN 3.8 g/dl (3.4-5.0); BLOOD UREA NITROGEN 11.3 mg/dL (7-18)
[2023-06-01 18:43] LABS: CREATININE 0.9 mg/dL (0.55-1.3); PHOSPHOROUS 2.9 mg/dL (2.5-4.9)
[2023-06-01 18:45] LABS: BILIRUBIN,TOTAL 0.4 mg/dL (0.2-1); TOT PROT 7.3 g/dl (6.4-8.2)
[2023-06-01] MEDS ORDERED: KETOROLAC TROMETHAMINE 15 MG/ML VIAL IVPUSH ONE (20:17)
[2023-06-01] MEDS ORDERED: KETOROLAC TROMETHAMINE 15 MG/ML VIAL ONE (20:18)
[2023-06-02] MEDS ORDERED: LIDOCAINE PATCH REMOVAL MC SCH (06:00)
== END 2023-06-01 21:34 | disposition home or self-care (01) ==
LOC: JER 15:38
PROC: 3E033GC Introduction of Other Therapeutic Substance into Peripheral Vein, Percutaneous Approach (ICD-10-PCS; principal; 2023-06-01)
PROC: 3E033GC Introduction of Other Therapeutic Substance into Peripheral Vein, Percutaneous Approach (ICD-10-PCS; 2023-06-01)
PROC: 3E033GC Introduction of Other Therapeutic Substance into Peripheral Vein, Percutaneous Approach (ICD-10-PCS; 2023-06-01)
PROC: 3E033GC Introduction of Other Therapeutic Substance into Peripheral Vein, Percutaneous Approach (ICD-10-PCS; 2023-06-01)
DX: M54.9 Dorsalgia, unspecified (principal); R11.10 Vomiting, unspecified; N20.0 Calculus of kidney; K59.00 Constipation, unspecified
CPT/HCPCS: 36415; 74177-TC; 80053; 81003; 83735; 84100; 84484; 84703; 85025; 87086; 93005; 93010; 96365; 96375; 99285-25; J0131

== ENCOUNTER 2023-10-05 12:57 | Emergency (ER) | payer OTHER ==
[2023-10-05 13:03] VITALS: RESP 18; BMI 60.3
[2023-10-05] MEDS ORDERED: LIDOCAINE 4% PATCH TP ONE ×2 (14:56)
[2023-10-05] MEDS ORDERED: ACETAMINOPHEN INJECTION 100 ML IVPB ONE ×2 (14:56→14:59)
[2023-10-05 15:35] LABS: PH,URINE 6.5 (5.0-8.0); URINE APPEARANCE CLEAR; URINE BILIRUBIN NEGATIVE (NEGATIVE); URINE COLOR YELLOW; URINE GLUCOSE (UA) 3+ (NEGATIVE); URINE KETONE NEGATIVE (NEGATIVE); URINE LEUK ESTERASE NEGATIVE (NEGATIVE); URINE NITRITE NEGATIVE (NEGATIVE); URINE PROTEIN NEGATIVE (NEGATIVE)
[2023-10-05 15:36] LABS: BASO % 0.9 % (0-2.0); EOS % 1.3 % (0-4.5); HEMATOCRIT 43.7 % (32.4-45.2); HEMOGLOBIN 13.9 GM/dL (10.7-15.3); LYMPH % 22.1 % (8-40); MCH 25.7 pg (25.7-33.7); MCHC 31.8 g/dl (32.0-36.0); MEAN CELL VOLUME 80.7 fl (80-96); MEAN PLT VOLUME 7.8 fl (7.5-11.1); MONO % 8.6 % (3.8-10.2); NEUT % 67.1 % (42.8-82.8); PLATELET COUNT 345 10^3/uL (134-434); RBC 5.41 M/mm3 (3.60-5.2); RDW 15.9 % (11.6-15.6); WHITE BLOOD COUNT 11.2 K/mm3 (4.0-10.0)
[2023-10-05] MEDS: ACETAMINOPHEN 1000 MG/100 ML BAG IVPB ONE (15:36)
[2023-10-05] MEDS: SODIUM CHLORIDE 0.9% 1000 ML INFUS.BAG IV ONE (15:36)
[2023-10-05] MEDS: LIDOCAINE 4% PATCH TP ONE (15:36)
[2023-10-05 15:43] LABS: INR 1.15 (0.83-1.09); PROTHROMBIN TIME (PATIENT) 12.9 SEC (9.7-13.0)
[2023-10-05 15:46] LABS: ACTIVATED PTT 31.7 SECONDS (25.2-36.5)
[2023-10-05 15:58] LABS: POTASSIUM 4.4 mmol/L (3.5-5.1)
[2023-10-05 16:00] LABS: ALBUMIN 3.5 g/dl (3.4-5.0); CALCIUM 9.3 mg/dL (8.5-10.1); MAGNESIUM 2.2 mg/dL (1.8-2.4)
[2023-10-05 16:03] LABS: CREATININE 0.9 mg/dL (0.55-1.3)
[2023-10-05 16:07] LABS: TOT PROT 7.2 g/dl (6.4-8.2)
[2023-10-05 16:08] LABS: BILIRUBIN,TOTAL 0.3 mg/dL (0.2-1)
[2023-10-05] MEDS ORDERED: KETOROLAC TROMETHAMINE 15 MG/ML VIAL ONE (17:17)
[2023-10-05] MEDS: KETOROLAC TROMETHAMINE 15 MG/ML VIAL IVPUSH ONE (17:26)
[2023-10-05 18:20] VITALS: BP 119/74; PULSE 71; TEMP 98
[2023-10-05] MEDS ORDERED: LIDOCAINE PATCH REMOVAL MC SCH (22:00)
== END 2023-10-05 18:20 | disposition short-term general hospital (02) ==
LOC: JER 12:57
PROC: 3E033NZ Introduction of Analgesics, Hypnotics, Sedatives into Peripheral Vein, Percutaneous Approach (ICD-10-PCS; principal; 2023-10-05)
PROC: 3E0333Z Introduction of Anti-inflammatory into Peripheral Vein, Percutaneous Approach (ICD-10-PCS; 2023-10-05)
DX: R20.0 Anesthesia of skin (principal); M79.605 Pain in left leg
CPT/HCPCS: 36415; 80053; 81003; 83735; 85025; 85610; 85651; 85730; 86140; 87040; 87086; 99285-25; J0131

== ENCOUNTER 2023-10-29 15:53 | Emergency (ER) | payer OTHER ==
[2023-10-29 16:05] VITALS: BP 138/68; PULSE 82; RESP 17; TEMP 98.6; BMI 60.3
[2023-10-29 16:56] LABS: BASO % 1.2 % (0-2.0); EOS % 1.8 % (0-4.5); HEMATOCRIT 43.3 % (32.4-45.2); HEMOGLOBIN 13.8 GM/dL (10.7-15.3); LYMPH % 21.2 % (8-40); MCH 25.8 pg (25.7-33.7); MCHC 31.9 g/dl (32.0-36.0); MEAN CELL VOLUME 80.9 fl (80-96); MEAN PLT VOLUME 7.8 fl (7.5-11.1); MONO % 6.8 % (3.8-10.2); PLATELET COUNT 316 10^3/uL (134-434); RBC 5.35 M/mm3 (3.60-5.2); WHITE BLOOD COUNT 12.4 K/mm3 (4.0-10.0)
[2023-10-29 17:15] LABS: POTASSIUM 4.6 mmol/L (3.5-5.1)
[2023-10-29 17:18] LABS: ALBUMIN 3.4 g/dl (3.4-5.0); BLOOD UREA NITROGEN 10.3 mg/dL (7-18)
[2023-10-29 17:21] LABS: CREATININE 0.9 mg/dL (0.55-1.3)
[2023-10-29 17:22] LABS: TOT PROT 7.3 g/dl (6.4-8.2)
[2023-10-29 17:23] LABS: BILIRUBIN,TOTAL 0.7 mg/dL (0.2-1)
[2023-10-29 19:46] LABS: URINE APPEARANCE CLEAR; URINE BILIRUBIN NEGATIVE (NEGATIVE); URINE COLOR YELLOW; URINE KETONE NEGATIVE (NEGATIVE)
[2023-10-29 19:47] LABS: PH,URINE 5.5 (5.0-8.0); URINE NITRITE NEGATIVE (NEGATIVE); URINE PROTEIN NEGATIVE (NEGATIVE); URINE UROBILINOGEN 0.2 mg/dL (0.2-1.0)
[2023-10-29 19:48] LABS: URINE LEUK ESTERASE NEGATIVE (NEGATIVE)
== END 2023-10-29 20:45 | disposition home or self-care (01) ==
LOC: JER 15:53
DX: R10.31 Right lower quadrant pain (principal)
CPT/HCPCS: 36415; 74177-TC; 80053; 81003; 83690; 84703; 85025; 86850; 86900; 86901; 87086; 99285-25; Q9967

== ENCOUNTER 2023-11-09 04:12 | Day surgery (SDC) | payer OTHER ==
[2023-11-07 13:42] VITALS: BMI 42.0
[2023-11-09] MEDS ORDERED: TRIAMCINOLONE ACET 40MG/1ML VIAL ONE (08:10)
[2023-11-09] MEDS ORDERED: BUPIVACAINE HCL/PF 0.5% (5MG/ML) 10 ML VIAL ONE (08:10)
[2023-11-09] MEDS ORDERED: LIDOCAINE HCL/PF 1% SDV 5ML VIAL ONE (08:10)
[2023-11-09] MEDS ORDERED: ACETAMINOPHEN 500 MG TABLET (FP) PO PRN (08:41)
[2023-11-09 11:38] VITALS: TEMP 97.7
[2023-11-09 15:04] VITALS: RESP 20
[2023-11-09 15:06] VITALS: BP 105/63; PULSE 63
== END 2023-11-09 15:20 | disposition home or self-care (01) ==
LOC: JASU-SURG 04:12
PROVIDERS: ATTEND Pain Medicine Pain Medicine
PROC: 3E0U3BZ Introduction of Anesthetic Agent into Joints, Percutaneous Approach (ICD-10-PCS; 2023-11-09)
PROC: 3E0U33Z Introduction of Anti-inflammatory into Joints, Percutaneous Approach (ICD-10-PCS; principal; 2023-11-09 14:47)
DX: M53.3 Sacrococcygeal disorders, not elsewhere classified (principal)
CPT/HCPCS: 76000-TC-FY

== ENCOUNTER 2023-11-30 15:20 | Emergency (ER) | payer OTHER ==
[2023-11-30 15:29] VITALS: BP 142/88; PULSE 80; RESP 18; TEMP 97.3; BMI 60.3
[2023-11-30 17:06] LABS: EOS % 1.6 % (0-4.5); HEMATOCRIT 43.4 % (32.4-45.2); HEMOGLOBIN 13.6 GM/dL (10.7-15.3); LYMPH % 22.3 % (8-40); MCH 24.9 pg (25.7-33.7); MCHC 31.4 g/dl (32.0-36.0); MEAN CELL VOLUME 79.4 fl (80-96); MEAN PLT VOLUME 8.1 fl (7.5-11.1); MONO % 7.5 % (3.8-10.2); NEUT % 67.6 % (42.8-82.8); PLATELET COUNT 332 10^3/uL (134-434); RBC 5.46 M/mm3 (3.60-5.2); RDW 16.6 % (11.6-15.6); WHITE BLOOD COUNT 11.7 K/mm3 (4.0-10.0)
[2023-11-30 17:35] LABS: POTASSIUM 5.3 mmol/L (3.5-5.1)
[2023-11-30 17:37] LABS: ALBUMIN 3.3 g/dl (3.4-5.0); BLOOD UREA NITROGEN 13.8 mg/dL (7-18); CALCIUM 8.9 mg/dL (8.5-10.1)
[2023-11-30 17:40] LABS: CREATININE 1.1 mg/dL (0.55-1.3)
[2023-11-30 17:42] LABS: BILIRUBIN,TOTAL 0.5 mg/dL (0.2-1)
== END 2023-11-30 19:20 | disposition home or self-care (01) ==
LOC: JER 15:20
DX: R21 Rash and other nonspecific skin eruption (principal); B35.6 Tinea cruris
CPT/HCPCS: 36415; 71046-TC-FY; 80053; 85025; 99283-25

== ENCOUNTER 2024-01-18 12:02 | Emergency (ER) | payer SELFPAY ==
[2024-01-18 12:20] VITALS: BP 113/78; PULSE 85; RESP 18; TEMP 98; BMI 58.5
[2024-01-18] MEDS: ACETAMINOPHEN 1000 MG/100 ML BAG IVPB ONE (13:28)
[2024-01-18] MEDS ORDERED: ACETAMINOPHEN INJECTION 100 ML ONE (13:46)
[2024-01-18 14:21] LABS: BASO % 0.8 % (0-2.0); EOS % 1.3 % (0-4.5); HEMATOCRIT 42.7 % (32.4-45.2); HEMOGLOBIN 13.4 GM/dL (10.7-15.3); LYMPH % 20.8 % (8-40); MCHC 31.3 g/dl (32.0-36.0); MEAN CELL VOLUME 79.8 fl (80-96); MEAN PLT VOLUME 8.1 fl (7.5-11.1); MONO % 5.6 % (3.8-10.2); NEUT % 71.5 % (42.8-82.8); PLATELET COUNT 294 10^3/uL (134-434); RBC 5.35 M/mm3 (3.60-5.2); RDW 17.6 % (11.6-15.6); WHITE BLOOD COUNT 10.1 K/mm3 (4.0-10.0)
[2024-01-18 14:22] LABS: HCG,QUALITATIVE URINE Negative
[2024-01-18 14:23] LABS: PH,URINE 6.5 (5.0-8.0); URINE APPEARANCE CLEAR; URINE BILIRUBIN NEGATIVE (NEGATIVE); URINE COLOR YELLOW; URINE GLUCOSE (UA) 3+ (NEGATIVE); URINE KETONE NEGATIVE (NEGATIVE); URINE LEUK ESTERASE NEGATIVE (NEGATIVE); URINE NITRITE NEGATIVE (NEGATIVE); URINE PROTEIN NEGATIVE (NEGATIVE); URINE UROBILINOGEN 0.2 mg/dL (0.2-1.0)
[2024-01-18 14:27] LABS: INR 1.13 (0.83-1.09); PROTHROMBIN TIME (PATIENT) 12.9 SEC (9.7-13.0)
[2024-01-18 14:30] LABS: ACTIVATED PTT 29.9 SECONDS (25.2-36.5)
[2024-01-18 14:45] LABS: POTASSIUM 3.9 mmol/L (3.5-5.1)
[2024-01-18 14:47] LABS: CALCIUM 9.2 mg/dL (8.5-10.1)
[2024-01-18 14:48] LABS: ALBUMIN 3.3 g/dl (3.4-5.0); BLOOD UREA NITROGEN 11.6 mg/dL (7-18)
[2024-01-18 14:50] LABS: CREATININE 0.9 mg/dL (0.55-1.3)
[2024-01-18 14:52] LABS: BILIRUBIN,TOTAL 0.4 mg/dL (0.2-1); TOT PROT 6.7 g/dl (6.4-8.2)
[2024-01-18] MEDS ORDERED: CEPHALEXIN MONOHYDRATE 500 MG CAPSULE (UD) PO ONE (18:07)
[2024-01-18] MEDS ORDERED: morphine SULFATE 4 MG/ML VIAL IVPUSH ONE (19:02)
== END 2024-01-18 18:30 | disposition home or self-care (01) ==
LOC: JER 12:02
PROC: 3E033NZ Introduction of Analgesics, Hypnotics, Sedatives into Peripheral Vein, Percutaneous Approach (ICD-10-PCS; principal; 2024-01-18)
DX: R10.32 Left lower quadrant pain (principal); L03.311 Cellulitis of abdominal wall
CPT/HCPCS: 36415; 74177-TC; 80053; 81003; 82962; 83690; 84484; 84703; 85025; 85610; 85730; 87086; 93005; 93010; 99285-25; J0131; Q9967

== ENCOUNTER 2024-02-20 16:43 | Emergency (ER) | payer OTHER ==
[2024-02-20 17:06] VITALS: BP 133/75; PULSE 83; RESP 22; TEMP 98.4; BMI 58.5
[2024-02-20] MEDS: ALBUTEROL SO4 2.5/IPRATROPIUM 0.5 INH SOL 3 ML VIAL.NEB. NEB SCH (18:37)
[2024-02-20] MEDS ORDERED: CEPHALEXIN MONOHYDRATE 500 MG CAPSULE (UD) ONE (18:37)
[2024-02-20] MEDS ORDERED: ACETAMINOPHEN 325 MG TABLET (FP) ONE (18:37)
[2024-02-20] MEDS ORDERED: ALBUTEROL SO4 0.083% IH SOL 2.5 MG/3 ML VIAL.NEB. NEB ONE (18:37)
[2024-02-20] MEDS: ALBUTEROL SULFATE 0.021% (0.63 MG/3 ML) VIAL.NEB NEB ONE (18:54)
[2024-02-20] MEDS: CEPHALEXIN MONOHYDRATE 500 MG CAPSULE (UD) PO ONE (18:54)
[2024-02-20] MEDS: ACETAMINOPHEN 500 MG TABLET (FP) PO ONE (18:54)
[2024-02-20 19:07] LABS: BASO % 1.3 % (0-2.0); EOS % 1.2 % (0-4.5); HEMATOCRIT 44.8 % (32.4-45.2); LYMPH % 22.1 % (8-40); MCHC 31.2 g/dl (32.0-36.0); MEAN CELL VOLUME 79.9 fl (80-96); MEAN PLT VOLUME 8.1 fl (7.5-11.1); MONO % 7.4 % (3.8-10.2); PLATELET COUNT 286 10^3/uL (134-434); RDW 17.4 % (11.6-15.6); WHITE BLOOD COUNT 12.9 K/mm3 (4.0-10.0)
[2024-02-20 19:38] LABS: POTASSIUM 4.1 mmol/L (3.5-5.1)
[2024-02-20 19:40] LABS: CALCIUM 9.5 mg/dL (8.5-10.1)
[2024-02-20 19:41] LABS: ALBUMIN 3.8 g/dl (3.4-5.0); BLOOD UREA NITROGEN 17.4 mg/dL (7-18)
[2024-02-20 19:45] LABS: BILIRUBIN,TOTAL 0.5 mg/dL (0.2-1); TOT PROT 7.2 g/dl (6.4-8.2)
[2024-02-20] MEDS: KETOCONAZOLE 2% CREAM - 60GM TUBE TP SCH (20:02)
== END 2024-02-20 20:38 | disposition home or self-care (01) ==
LOC: JER 16:43
PROC: 3E0F7GC Introduction of Other Therapeutic Substance into Respiratory Tract, Via Natural or Artificial Opening (ICD-10-PCS; principal; 2024-02-20)
DX: R06.02 Shortness of breath (principal); E65 Localized adiposity
CPT/HCPCS: 36415; 71045-TC-FY; 80053; 85025; 86803; 99284-25

== ENCOUNTER 2024-03-14 12:46 | Observation (INO) | payer OTHER ==
[2024-03-14 14:12] LABS: BASO % 0.9 % (0-2.0); HEMATOCRIT 42.4 % (32.4-45.2); HEMOGLOBIN 13.6 GM/dL (10.7-15.3); LYMPH % 20.7 % (8-40); MCH 25.5 pg (25.7-33.7); MCHC 32.1 g/dl (32.0-36.0); MEAN CELL VOLUME 79.6 fl (80-96); MEAN PLT VOLUME 7.9 fl (7.5-11.1); MONO % 7.1 % (3.8-10.2); NEUT % 70.3 % (42.8-82.8); PLATELET COUNT 272 10^3/uL (134-434); RBC 5.33 M/mm3 (3.60-5.2); RDW 17.1 % (11.6-15.6); WHITE BLOOD COUNT 9.6 K/mm3 (4.0-10.0)
[2024-03-14 14:13] LABS: URINE APPEARANCE CLEAR; URINE BILIRUBIN NEGATIVE (NEGATIVE); URINE COLOR YELLOW; URINE GLUCOSE (UA) 3+ (NEGATIVE); URINE KETONE NEGATIVE (NEGATIVE); URINE LEUK ESTERASE NEGATIVE (NEGATIVE); URINE NITRITE NEGATIVE (NEGATIVE); URINE PROTEIN NEGATIVE (NEGATIVE); URINE UROBILINOGEN 0.2 mg/dL (0.2-1.0)
[2024-03-14 14:18] LABS: INR 1.15 (0.83-1.09); PROTHROMBIN TIME (PATIENT) 12.9 SEC (9.7-13.0)
[2024-03-14 14:21] LABS: ACTIVATED PTT 31.4 SECONDS (25.2-36.5)
[2024-03-14] MEDS ORDERED: FAMOTIDINE 20 MG/50 ML IVPB 20 MG/50 ML MG IVPB ONE (14:32)
[2024-03-14] MEDS ORDERED: ACETAMINOPHEN INJECTION 100 ML ONE (14:38)
[2024-03-14] MEDS ORDERED: MAG HYDROX/AL HYDROX/SIMETH 30 ML UNIT-DOSE CUP ONE (14:39)
[2024-03-14 14:42] LABS: CALCIUM 9.1 mg/dL (8.5-10.1)
[2024-03-14 14:43] LABS: ALBUMIN 3.3 g/dl (3.4-5.0)
[2024-03-14 14:44] LABS: BLOOD UREA NITROGEN 10.9 mg/dL (7-18)
[2024-03-14] MEDS: MAG HYDROX/AL HYDROX/SIMETH 30 ML UNIT-DOSE CUP PO ONE (14:46)
[2024-03-14] MEDS: ACETAMINOPHEN 1000 MG/100 ML BAG IVPB ONE (14:46)
[2024-03-14 14:47] LABS: CREATININE 0.8 mg/dL (0.55-1.3)
[2024-03-14 14:48] LABS: TOT PROT 6.4 g/dl (6.4-8.2)
[2024-03-14 14:49] LABS: BILIRUBIN,TOTAL 0.4 mg/dL (0.2-1)
[2024-03-14] MEDS: SODIUM CHLORIDE 0.9% 500 ML INFUS.BAG IV ONE (15:41)
[2024-03-14] MEDS ORDERED: ALBUTEROL SO4 HFA INHALER IH PRN (15:57)
[2024-03-14] MEDS ORDERED: ASPIRIN COATED 81 MG TABLET.EC ONE (17:09)
[2024-03-14] MEDS: ASPIRIN COATED 81 MG TABLET.EC PO SCH (17:14)
[2024-03-14] MEDS: INSULIN ASPART SLIDING SCALE (NOVOLOG) 1 VIAL SQ SCH (17:21)
[2024-03-14 20:59] VITALS: BMI 55.2
[2024-03-14 21:22] LABS: HIV INTERPRETATION PRESUMPTIVE POSITIVE (NEGATIVE)
[2024-03-14] MEDS: GABAPENTIN 300 MG CAPSULE PO SCH (21:28)
[2024-03-14] MEDS: ROSUVASTATIN CA 5 MG TABLET PO SCH (21:29)
[2024-03-14] MEDS: HEPARIN NA (PORCINE) 5,000 UNITS/ML 1ML VIAL SQ SCH (21:29)
[2024-03-14] MEDS: MONTELUKAST NA 10 MG TABLET PO SCH (21:29)
[2024-03-14] MEDS: TOPIRAMATE 25 MG TABLET PO SCH (21:29)
[2024-03-14] MEDS: ACETAMINOPHEN 500 MG TABLET (FP) PO PRN (21:31)
[2024-03-14] MEDS: KETOROLAC TROMETHAMINE 15 MG/ML VIAL IVPUSH ONE (23:25)
[2024-03-15] MEDS: BICTEGRAV/EMTRICIT/TENOFOV (BIKTARVY) 50-200-25 MG TABLET PO SCH (08:09)
[2024-03-15 10:11] LABS: BASO % 0.7 % (0-2.0); EOS % 1.7 % (0-4.5); HEMATOCRIT 40.8 % (32.4-45.2); HEMOGLOBIN 12.8 GM/dL (10.7-15.3); LYMPH % 24.7 % (8-40); MCH 25.4 pg (25.7-33.7); MCHC 31.5 g/dl (32.0-36.0); MEAN CELL VOLUME 80.7 fl (80-96); MEAN PLT VOLUME 7.8 fl (7.5-11.1); MONO % 6.4 % (3.8-10.2); NEUT % 66.5 % (42.8-82.8); PLATELET COUNT 259 10^3/uL (134-434); RBC 5.06 M/mm3 (3.60-5.2); RDW 16.7 % (11.6-15.6); WHITE BLOOD COUNT 8.4 K/mm3 (4.0-10.0)
[2024-03-15 10:40] LABS: POTASSIUM 3.9 mmol/L (3.5-5.1)
[2024-03-15 10:47] LABS: CREATININE 0.8 mg/dL (0.55-1.3)
[2024-03-15 10:50] LABS: CALCIUM 8.5 mg/dL (8.5-10.1)
[2024-03-16] MEDS: KETOROLAC TROMETHAMINE 15 MG/ML VIAL IVPUSH ONE (18:25)
[2024-03-16] MEDS: BUDESONIDE/FORMETEROL FUMARATE 80/4.5 mcg INHALER IH SCH (22:58)
[2024-03-17 13:22] LABS: BASO % 0.5 % (0-2.0); EOS % 1.7 % (0-4.5); HEMOGLOBIN 13.8 GM/dL (10.7-15.3); LYMPH % 23.7 % (8-40); MCH 25.6 pg (25.7-33.7); MEAN CELL VOLUME 79.9 fl (80-96); MEAN PLT VOLUME 8.5 fl (7.5-11.1); MONO % 8.8 % (3.8-10.2); NEUT % 65.3 % (42.8-82.8); PLATELET COUNT 310 10^3/uL (134-434); RBC 5.38 M/mm3 (3.60-5.2); RDW 16.9 % (11.6-15.6)
[2024-03-17 13:53] LABS: POTASSIUM 4.6 mmol/L (3.5-5.1)
[2024-03-17 13:55] LABS: CALCIUM 9.1 mg/dL (8.5-10.1)
[2024-03-17 13:56] LABS: BLOOD UREA NITROGEN 16.1 mg/dL (7-18)
[2024-03-17 14:00] LABS: CREATININE 0.8 mg/dL (0.55-1.3)
[2024-03-18] MEDS: EMPAGLIFLOZIN (JARDIANCE) 25 MG TABLET PO SCH (09:18)
[2024-03-18 13:14] VITALS: BP 107/69; PULSE 72; RESP 17; TEMP 97.5
== END 2024-03-18 13:34 | disposition home or self-care (01) ==
LOC: JER 12:46 → JERBED 15:42 → INTOOBSV 15:42 → UNDOADMOB 15:42 → JERBED 15:58 → J6S 18:33 → JERBED 18:33 → J6S 18:33
PROVIDERS: ADMIT Internal Medicine; ATTEND Internal Medicine
PROC: 3E033NZ Introduction of Analgesics, Hypnotics, Sedatives into Peripheral Vein, Percutaneous Approach (ICD-10-PCS; principal; 2024-03-14)
PROC: 3E023GC Introduction of Other Therapeutic Substance into Muscle, Percutaneous Approach (ICD-10-PCS; 2024-03-14)
PROC: 3E0333Z Introduction of Anti-inflammatory into Peripheral Vein, Percutaneous Approach (ICD-10-PCS; 2024-03-14)
PROC: 3E0337Z Introduction of Electrolytic and Water Balance Substance into Peripheral Vein, Percutaneous Approach (ICD-10-PCS; 2024-03-14)
DX: G43.109 Migraine with aura, not intractable, without status migrainosus (principal); R41.82 Altered mental status, unspecified; R25.1 Tremor, unspecified; E66.01 Morbid (severe) obesity due to excess calories; Z21 Asymptomatic human immunodeficiency virus [HIV] infection status; R20.2 Paresthesia of skin; J45.909 Unspecified asthma, uncomplicated; E11.9 Type 2 diabetes mellitus without complications; M79.7 Fibromyalgia; G47.33 Obstructive sleep apnea (adult) (pediatric); R20.0 Anesthesia of skin
CPT/HCPCS: 36415; 70450-TC; 70496-TC; 70498-TC; 80048; 80053; 80061; 81003; 82550; 82962; 83036; 84484; 85025; 85610; 85730; 86803; 86850; 86900; 86901; 87389; 93005; 93010; 93306-TC; 95816; 96372; 96374; 96375; 96376; 97116-GP; 97162-GP; 99285-25; G0378; J0131; J1644